=== PATIENT | male | born 1940 | race Caucasian/White ===

== ENCOUNTER 2017-06-22 11:39 | Emergency (ER) | payer MEDICARE, OTHER, SELFPAY ==
[2017-06-22 11:42] VITALS: BP 109/50; PULSE 79; RESP 16; TEMP 37; O2SAT 98; BMI 30.1
--- NOTE | 2017-06-22 12:15 | RAD_ITS ---
STUDY: X-RAY CHEST REASON FOR EXAM: Male, 76 years old. Cough. TECHNIQUE: PA and lateral views of the chest. COMPARISON: None. FINDINGS: Scattered calcified granulomas. Mild increased linear markings at the lung bases suggestive of scarring. No focal infiltrate is seen. There is no demonstrated pleural abnormality. Normal size heart. Normal mediastinum and david. Normal visualized pulmonary arteries. There is atherosclerotic calcification of the aortic arch with tortuosity. There are diffuse degenerative changes of the visualized thoracic spine. Normal visualized ribs, clavicles, and shoulders. There is no demonstrated abnormality of the visualized soft tissue structures of the upper abdomen. RAD/Chest PA and Lateral IMPRESSION: Mild increased markings at the lung bases suggestive of possible scarring. No acute abnormality is seen. Electronically Signed: You Erwin MD at 12:36 EST Tel [phone], Service support ,
--- NOTE | 2017-06-22 12:55 | ED.DCSUM_ITS ---
- ER Visit Summary Date of Service: 06/22/17 Chief Complaint: Myalgias, arthralgias subjective fever with sweats and nonproductive cough for the past 3-4 days. History of Present Illness: The patient is a 76 M who presents with viral-like symptoms that started 3-4 days ago. His major concern is myalgias and arthralgias and difficulty walking because of pain. He does complain of headache without photophobia or stiffness of his neck. He does report mild shortness of breath with activity. He denies any cardiac symptoms. He denies any GI or symptoms. He denies any skin lesions. He denies any joint swelling. He has smoked for approximately 60 years Physical Examination: Vital signs are normal. HEENT exam is remarkable for mild nasal congestion and boggy nasal mucosa; otherwise his HEENT exam is normal. Heart is regular without murmur, gallop or rub. Lungs reveal end of story rales which may represent COPD. Abdomen is soft nontender. Insert lower extremity DVT neuro exam is nonfocal. There are no skin lesions noted. Test Results: View chest x-ray reveals chronic pulmonary changes with normal cardiac silhouette, mediastinum and bony structures. Emergency Department Course and Treatment: Since he is elderly as smoked for greater than 60 years and there are abnormal respiratory sounds noted auscultation chest x-ray was obtained. Treatment Plan: Since his chest x-ray is normal and his symptoms are consistent with viral illness, influenza there is no treatment Disposition: Discharge to home Impression: Acute viral illness, influenza This note was generated with [employer] dictation software. It may contain incorrect words, spelling, and punctuation that were not noted in review of the chart prior to signing ED Disposition - Plan for ED Patient: Disposition: Home or Assisted Living Chief Complaint: General Illness Instructions: ED Viral Syndrome Referrals: Delano Garcia MD [Primary Care Provider] - 10-14 Days if not better
[2017-06-22 13:40] VITALS: BP 121/62; PULSE 72; RESP 17; TEMP 36.2; O2SAT 98
== END 2017-06-22 13:42 | disposition home or self-care (01) ==
PROVIDERS: Emergency Provider Emergency Medicine; Family Provider Family Medicine; PCP Family Medicine
DX: J11.1 Influenza due to unidentified influenza virus with other respiratory manifestations (principal); R26.2 Difficulty in walking, not elsewhere classified; F17.200 Nicotine dependence, unspecified, uncomplicated; E66.9 Obesity, unspecified; Z79.899 Other long term (current) drug therapy
CPT/HCPCS: 71046; 99282

== ENCOUNTER 2017-06-25 12:26 | Inpatient (IN) | payer MEDICARE, OTHER, SELFPAY ==
[2017-06-25] VITALS (8 sets, daily range): BP systolic 120–147; BP diastolic 55–73; PULSE 70–84; RESP 15–18; TEMP 36.7–37.3; O2SAT 92–99; BMI 29.2; BMI 28.2
--- NOTE | 2017-06-25 12:43 | RAD_ITS ---
STUDY: X-RAY CHEST REASON FOR EXAM: Male, 76 years old. Chest pain. Weakness. TECHNIQUE: Single AP portable view of the chest. COMPARISON: Comparison is made with prior examination dated June 22, 2017. FINDINGS: EKG electrodes are seen. Hyperinflation. Scattered calcified granulomas. No acute abnormality is seen. There is no demonstrated pleural abnormality. Normal size heart. Normal mediastinum and david. Normal visualized pulmonary arteries. There is atherosclerotic calcification of the aortic arch with tortuosity. There are diffuse degenerative changes of the visualized thoracic spine. Normal visualized ribs, clavicles, and shoulders. There is no demonstrated abnormality of the visualized soft tissue structures of the upper abdomen. RAD/Chest 1 View (Portable) IMPRESSION: Stable examination. No acute abnormality is seen. Electronically Signed: You Erwin MD at 13:44 EST Tel [phone], Service support ,
--- NOTE | 2017-06-25 12:43 | EKG12_ITS ---
Test Reason : WEAKNESS Blood Pressure : / mmHG Vent. Rate : 079 BPM Atrial Rate : 079 BPM P-R Int : 210 ms QRS Dur : 114 ms QT Int : 386 ms P-R-T Axes : -25 -28 030 degrees QTc Int : 442 ms Sinus rhythm with 1st degree A-V block Otherwise normal ECG Confirmed by LEROY FINNEGAN, LEVY ([id number]), subeditor KOTA WANG ([id number] on 06/29/2017 3:50:29 PM Referred By: ОЛЬГА Confirmed By:LEVY HARPER MD
--- NOTE | 2017-06-25 12:43 | ED.RN ---
pt driven to ed by grandchild. while triage pt adult grandchild became upset about pt being released a week ago with the flu. grandchild was explained our normal protocol with flu patients. grandchild was still unhappy. he was then informed that i would add his concerns about something being missed on last visit. adult grandchild then asked if he could remain calm. he said yes. charge nurse was informed of the encounter. Josie Sharpe rn
--- NOTE | 2017-06-25 12:56 | CT_ITS ---
STUDY: CT BRAIN WITHOUT CONTRAST REASON FOR EXAM: Male, 76 years old. Generalized weakness. Confusion. History of recent flu. RADIATION DOSAGE (If Supplied By Facility): CTDIvol = ( 44.99 ) mGy, DLP = ( 812.98 ) mGycm TECHNIQUE: Transaxial CT imaging of the brain was performed without administration of intravenous contrast material. Individualized dose optimization techniques were used for this CT. COMPARISON: None. FINDINGS: Normal soft tissue structures. Normal calvarium. There is mild cerebral atrophy with widening of the extra-axial spaces and ventricular dilatation. Normal white matter tracts of the cerebral hemispheres. Normal basal ganglia and thalami. Normal brainstem. Normal cerebellum. There is no intracranial hemorrhage. There are no findings of an acute ischemic infarction. Atherosclerotic calcification of the cavernous portions of the internal carotid arteries bilaterally. Partial opacification of the ethmoid sinuses bilaterally and mucosal thickening of the right maxillary sinus. CT/Brain/Head without Contrast IMPRESSION: Chronic involutional changes of the brain. Sinusitis. Electronically Signed: You Erwin MD at 13:31 EST Tel [phone], Service support ,
--- NOTE | 2017-06-25 12:58 | ED.VISSUMM ---
- ER Visit Summary Date of Service: 06/25/17 Chief Complaint: [] Generalized weakness unable to walk confusion History of Present Illness: The patient is a 76 M [] diabetes and hypertension who is generally in good health about a week ago he developed what sounds like the flu cough fever etc. he was seen in the emergency department a few days ago the workup was unremarkable, the family reports for the last few days she has has generalized weakness he cannot dress himself he can barely walk cannot get to the bathroom and back without significant assistance, the also feels if he is more confused and is not processing information with a sharp mind. The patient at this time is oriented times himself his family the [facility] knows where he is now when he has no specific complaints other than generalized weakness he also reports he apparently is been having anterior bilateral thigh pain but no trauma he has no history of musculoskeletal disorder or dermatologic disorders Physical Examination: [] Vital signs are within normal range he does appear very fatigued his sons are helping him get undressed he has a slight tremor to the left arm that is old he is awake and alert oriented as above his HEENT exam shows dry mucous membranes neck is very supple heart tones sound regular the lungs sound clear the abdomen soft nontender upper lower extremities unremarkable his thighs his lower extremities are unremarkable he has full range of motion of all 4 extremities but does complain of generalized weakness his NIH would be 0 Test Results: [] Emergency Department Course and Treatment: [] Comprehensive evaluation Treatment Plan: [] Disposition: [] Impression: [] This note was generated with [employer] dictation software. It may contain incorrect words, spelling, and punctuation that were not noted in review of the chart prior to signing ED Disposition - Plan for ED Patient: Chief Complaint: Weakness Referrals: Delano Garcia MD [Primary Care Provider] -
[2017-06-25 13:06] LABS: Absolute Lymphocyte Count 1.24 X10^3/ul (0.83-4.51); Absolute Neutrophil Count 8.2 X10^3/uL (2.0-7.7); Basophil# 0.03 X10^3/uL; Basophil% 0.3 % (0-1); Eosinophil# 0.16 X10^3/uL; Eosinophils% 1.5 % (0-5); Hematocrit 44.1 % (40-54); Hemoglobin 14.8 g/dl (13.0-16.5); Lymphocyte # 1.24 X10^3/ul (4.0); Lymphocyte % 11.6 % (19-41); Mean Corp Hgb Conc 33.6 g/gl (32-36); Mean Corpuscular Hgb 27.2 pg (27.0-32.0); Mean Corpuscular Volume 80.9 fL (80-94); Mean Platelet Vol. 10.6 fl (6.2-12.0); Monocyte# 1.11 X10^3/uL; Monocyte% 10.4 % (0-10); Neutrophil # 8.15 X10^3/uL (2.7-7.7); Neutrophil % 75.9 % (47-70); Platelet Count 299 K/mm3 (150-450); RBC Distribution Width CV 14.4 % (11.6-14.6); Red Blood Count 5.45 M/mm3 (4.6-6.2); White Blood Count 10.7 K/mm3 (4.4-11.0)
[2017-06-25 13:07] LABS: POSITIVE COUNT NO; POSITIVE DIFFERENTIAL NO; POSITIVE MORPHOLOGY NO
[2017-06-25 13:23] LABS: AST(SGOT) 13 U/L (15-37); Alanine Aminotransfer ALT/SGPT 28 U/L (16-61); Albumin, Serum 3.6 g/dL (3.2-5.0); Alkaline Phosphatase 82 U/L (45-117); Anion Gap 8 (5-15); BUN 18 mg/dL (7-18); BUN/Creat Ratio 16.7 RATIO (10-20); Bilirubin, Direct 0.19 mg/dL (0.00-0.30); Calcium,Total 8.9 mg/dL (8.5-10.1); Chloride 97 mmol/L (98-107); Creatinine, Serum 1.08 mg/dL (0.70-1.30); EST Glomerular Filtration Rate 71 mL/min (>60); Est Glom Filt Rate - Afr Amer 86 mL/min (>60); Estimated Creatinine Clearance 62.94 ml/min; Globulin 3.9 g/dL (2.2-4.2); Glucose 125 mg/dL (70-110); Lipase 100 U/L (73-393); Potassium 3.8 mmol/L (3.5-5.1); Protein, Total 7.5 g/dL (6.4-8.2); Sodium Level 133 mmol/L (136-145)
[2017-06-25 13:25] LABS: CPK Total, Creatine Kinase 131 U/L (39-308)
[2017-06-25] MEDS: 0.9% Normal Saline 1,000 ML 150 ML IV ×2 (13:45→15:58)
[2017-06-25 14:27] LABS: Bacteria 0 SEEN /hpf (None Seen); Mucous, Urine 0 SEEN /hpf (<or=2+); Red Blood Cells-Urine 0 SEEN /hpf (0-5); Squamous Epithelial Cells - UA 0 SEEN /hpf (0-5)
[2017-06-25 14:30] LABS: Color, Urine Yellow (Yellow); Glucose, Dipstick Normal (Normal); Ketone-Dipstick Negative (Negative); Leukocyte Esterase-Dipstick 25 /ul (Negative); Nitrite-Dipstick Negative (Negative); Occult Blood-Urine Negative /ul (Negative); Protein-Dipstick Negative (Negative); Specific Gravity, Urine 1.015 (1.002-1.030); Urine Bilirubin Dipstick Negative (Negative); Urine Clarity Clear (Clear); Urine Urobilinogen Normal (Normal)
[2017-06-25 14:37] LABS: White Blood Cells 0-5 SEEN /hpf (0-5)
--- NOTE | 2017-06-25 15:40 | PCM.HP.STD ---
<Diamante Shane - Last Filed: 06/25/17 17:10> Problem List (1) Type 2 diabetes mellitus Status: Chronic (2) Hypertension Status: Chronic (3) Tobacco abuse Status: Chronic History of Present Illness Date of Admission: 06/25/17 Chief Complaint: Generalized weakness, malaise, altered mental status. The patient is a 76 year old M who presents to the emergency room with a one-week history of worsening weakness, general malaise, fever/chills, cough, altered mental status. Family at bedside states patient is normally in good health and has had no prior issues with confusion or weakness. He presented to [facility] ER on 06/22/2017 for similar symptoms and was diagnosed with viral syndrome and discharged from the ER. Grandson at bedside states that respiratory panel/flu swab was not completed as the physician reportedly said there is no need for an expensive test. Family states that patient had a dental procedure within the past 2 weeks and is finishing a course of amoxicillin due to a noted infection in the gum during procedure. Patient denies history of rheumatic fever. He has a past medical history of hypertension, type 2 diabetes mellitus and current pack per day smoker. He denies other chronic medical history. Denies alcohol use. Family at bedside is very concerned and states that patient has become so weak that he is having difficulty providing basic care for himself. Patient denies chest pain. Complains of associated shortness of breath. Complains of jaw pain related to recent dental procedure. Patient was told by a dentist that he may experience jaw pain for an extended period of time. She denies drainage from the mouth, foul taste. Denies nausea, vomiting. Denies other associated complaints. Past Medical History Past Medical History (Chronic Problems): Chronic Problems Type 2 diabetes mellitus (Chronic) Hypertension (Chronic) Tobacco abuse (Chronic) Allergies No Known Allergies Allergy (Verified 06/25/17 12:30) Home Medications: Ambulatory Orders Medication Instructions Recorded Amlodipine [Norvasc] 2.5 mg PO DAILY 06/25/17 Amoxicillin [Amoxil] 500 mg PO Q6H 06/25/17 Ibuprofen [Ibuprofen] 1 tab PO Q8H PRN PRN 06/25/17 Insulin Aspart [Novolog Flexpen 6 units SC BIDCM 06/25/17 ([facility])] Insulin Glargine,Hum.rec.anlog 48 unit SQ QHS 06/25/17 [Lantus] Lisinopril/Hydrochlorothiazide 1 each PO DAILY 06/25/17 [Zestoretic 20-25 mg Tablet] Metformin HCl [Glucophage] 1,000 mg PO BIDCM 06/25/17 Surgical History: appendectomy Psychiatric History: No pertinent psych hx Lives: Spouse/ Significant Other Smoking Status: Current every day smoker - 1 pack per day Alcohol: None Drugs: None - *Family History Maternal History Items: Cancer Paternal History Items: Diabetes, Stroke Review of Systems Constitutional: Reports: Chills, Fever, Malaise, Weakness, Fatigue HEENT: Reports: Nasal Congestion. Denies: Head Aches, Sinus Congestion, Sinus Drainage Cardiovascular: Denies: Chest Pain, Palpitations, Syncope Respiratory: Reports: Cough, Shortness of Breath. Denies: Sputum production Gastrointestinal: Denies: Abdominal Pain, Diarrhea, Nausea, Vomiting Genitourinary: Denies: Dysuria, Frequency, Urgency Musculoskeletal: Denies: Joint Pain, Joint Tenderness Skin: Denies: Rash, Wounds Neurological: Denies: Numbness, Tingling, Focal weakness Psychiatric: Denies: Anxiety, Depression, Homicidal Ideations, Suicidal Ideations Hematologic/ Lymphatic: Denies: Easy Bruising, Easy Bleeding VTE Information - Inpt Only VTE Present on Admission: No VTE Mechan Device Prophylaxis: None VTE Pharm Prophylaxis ordered?: Yes - Physical Exam General: Alert, Cooperative, No apparent distress, Confused HEENT: Atraumatic, PERRLA, EOMI, Normocephalic Oral: No Gingival or Mucosal Lesions/ Ulcerations, Dry Mucosa Neck: Supple, No JVD, Negative Carotid Bruits Lungs: Clear to auscultation, Diminished Cardiovascular: Regular rate, Regular Rhythm, Normal S1, Normal S2, No murmurs Abdomen: Bowel Sounds Present, Soft, Non Tender, Non-Distended Extremities: No clubbing, No cyanosis, No edema, Capillary Refill Less than 3 Seconds Skin: No rashes, No breakdown Musculoskeletal: No Tenderness to Palpation of Joints or Extremities Neurological: Cranial nerves II-XII grossly intact, Neuro grossly intact Psych/Mental Status: Normal Affect, Appropriate Vital Signs Temp Pulse Resp BP Pulse Ox 98.9 F 79 16 144/56 H 94 06/25/17 14:29 06/25/17 14:29 06/25/17 14:29 06/25/17 14:29 06/25/17 14:29 Oxygen Delivery Method Room Air Weight: 89.3 kg Body Mass Index (BMI) 28.2 Assessment/Plan 1. Suspected viral syndrome-patient complains of general malaise with fever, chills, cough and weakness. Respiratory panel pending. Continue supportive treatment. IV fluids. Tylenol for fever. Cough suppressant as needed. 2. Generalized weakness/altered mental status-Brain CT shows chronic changes, sinusitis. Chest x-ray shows no acute abnormality. No leukocytosis. Respiratory panel pending. Patient had recent dental work done and family states symptoms began shortly after. Obtain echocardiogram to rule out endocarditis. PT/OT. Patient denies history of prosthetic valve or rheumatic fever. No previous cardiac history with the exception of hypertension. Urinalysis unremarkable. Fall precautions. 3. Type 2 diabetes [id number] before meals at bedtime. Continue long-acting insulin regimen. Sliding scale insulin. Hold metformin. 4. Hypertension-stable, continue home regimen. 5. Tobacco abuse-encourage smoking cessation. Nicotine replacement if desired. DVT prophylaxis-Lovenox subcu. This patient was seen by ELIZABETH Boudreaux under the supervision of Dr. Paredes. <Dale Paredes - Last Filed: 06/25/17 18:19> History of Present Illness seen and examined. Patient is admitted with generalized weakness, fever with chills, cough and altered mental status. He also complained of sense of micturition, increased frequency but not able to empty the bladder completely. UA shows mild LE positive otherwise no pyuria. Mild low-grade fever, T 99.2 Fahrenheit. Had recent crown of right upper premolar teeth on the amoxicillin. [] Past Medical History Allergies No Known Allergies Allergy (Verified 06/25/17 12:30) - Physical Exam General: Confused Lungs: Clear to auscultation, No rhonchi, No wheeze, Diminished Cardiovascular: Regular rate, Regular Rhythm, Normal S1, Normal S2, No murmurs Abdomen: Non Tender, Non-Distended Extremities: No edema Musculoskeletal: Arthritic Changes, Muscle Wasting Vital Signs Temp Pulse Resp BP Pulse Ox 99.2 F H 79 18 147/63 H 96 06/25/17 15:54 06/25/17 15:54 06/25/17 15:54 06/25/17 15:54 06/25/17 15:54 Oxygen Delivery Method Room Air Weight: 196 lb 13.965 oz Body Mass Index (BMI) 28.2 Intake and Output for Last 24 Hours 06/23/17 06/24/17 06/25/17 23:59 23:59 23:59 Intake Total 360 / 360 Output Total 200 / 200 Balance 160 / 160 Microbiology Past 72 Hours 06/25/17 14:36 Respiratory Panel (PCR) - Final Mucosa - Nasopharyngeal Assessment/Plan This patient was seen in conjunction with Diamante ALCANTARA. I have independently interviewed and examined the patient and reviewed pertinent history, examination findings, laboratory and plan of management. I have reviewed the note and agree with the documented findings with the few additional points. In brief, patient is admitted for generalized weakness and vital leg syndrome. Urine culture is ordered. Ammonia ordered. 2D echo ordered. Respiratory panel is negative. Blood cultures ?2 and lactic acid ordered. I have discussed my assessment with Diamante ALCANTARA and orders have been reviewed. Code Visit Inpatient E&M: 22253 Init Hosp L3
--- NOTE | 2017-06-25 15:46 | HP.PCM_ITS ---
<Diamante Shane - Last Filed: 06/25/17 17:10> Problem List (1) Type 2 diabetes mellitus Status: Chronic (2) Hypertension Status: Chronic (3) Tobacco abuse Status: Chronic History of Present Illness Date of Admission: 06/25/17 Chief Complaint: Generalized weakness, malaise, altered mental status. The patient is a 76 year old M who presents to the emergency room with a one- week history of worsening weakness, general malaise, fever/chills, cough, altered mental status. Family at bedside states patient is normally in good health and has had no prior issues with confusion or weakness. He presented to [facility] ER on 06/22/2017 for similar symptoms and was diagnosed with viral syndrome and discharged from the ER. Grandson at bedside states that respiratory panel/flu swab was not completed as the physician reportedly said there is no need for an expensive test. Family states that patient had a dental procedure within the past 2 weeks and is finishing a course of amoxicillin due to a noted infection in the gum during procedure. Patient denies history of rheumatic fever. He has a past medical history of hypertension, type 2 diabetes mellitus and current pack per day smoker. He denies other chronic medical history. Denies alcohol use. Family at bedside is very concerned and states that patient has become so weak that he is having difficulty providing basic care for himself. Patient denies chest pain. Complains of associated shortness of breath. Complains of jaw pain related to recent dental procedure. Patient was told by a dentist that he may experience jaw pain for an extended period of time. She denies drainage from the mouth, foul taste. Denies nausea, vomiting. Denies other associated complaints. Past Medical History Past Medical History (Chronic Problems): Chronic Problems Type 2 diabetes mellitus (Chronic) Hypertension (Chronic) Tobacco abuse (Chronic) Allergies No Known Allergies Allergy (Verified 06/25/17 12:30) Home Medications: Ambulatory Orders Medication Instructions Recorded Amlodipine [Norvasc] 2.5 mg PO DAILY 06/25/17 Amoxicillin [Amoxil] 500 mg PO Q6H 06/25/17 Ibuprofen [Ibuprofen] 1 tab PO Q8H PRN PRN 06/25/17 Insulin Aspart [Novolog Flexpen 6 units SC BIDCM 06/25/17 ([facility])] Insulin Glargine,Hum.rec.anlog 48 unit SQ QHS 06/25/17 [Lantus] Lisinopril/Hydrochlorothiazide 1 each PO DAILY 06/25/17 [Zestoretic 20-25 mg Tablet] Metformin HCl [Glucophage] 1,000 mg PO BIDCM 06/25/17 Surgical History: appendectomy Psychiatric History: No pertinent psych hx Lives: Spouse/ Significant Other Smoking Status: Current every day smoker - 1 pack per day Alcohol: None Drugs: None - *Family History Maternal History Items: Cancer Paternal History Items: Diabetes, Stroke Review of Systems Constitutional: Reports: Chills, Fever, Malaise, Weakness, Fatigue HEENT: Reports: Nasal Congestion. Denies: Head Aches, Sinus Congestion, Sinus Drainage Cardiovascular: Denies: Chest Pain, Palpitations, Syncope Respiratory: Reports: Cough, Shortness of Breath. Denies: Sputum production Gastrointestinal: Denies: Abdominal Pain, Diarrhea, Nausea, Vomiting Genitourinary: Denies: Dysuria, Frequency, Urgency Musculoskeletal: Denies: Joint Pain, Joint Tenderness Skin: Denies: Rash, Wounds Neurological: Denies: Numbness, Tingling, Focal weakness Psychiatric: Denies: Anxiety, Depression, Homicidal Ideations, Suicidal Ideations Hematologic/ Lymphatic: Denies: Easy Bruising, Easy Bleeding VTE Information - Inpt Only VTE Present on Admission: No VTE Mechan Device Prophylaxis: None VTE Pharm Prophylaxis ordered?: Yes - Physical Exam General: Alert, Cooperative, No apparent distress, Confused HEENT: Atraumatic, PERRLA, EOMI, Normocephalic Oral: No Gingival or Mucosal Lesions/ Ulcerations, Dry Mucosa Neck: Supple, No JVD, Negative Carotid Bruits Lungs: Clear to auscultation, Diminished Cardiovascular: Regular rate, Regular Rhythm, Normal S1, Normal S2, No murmurs Abdomen: Bowel Sounds Present, Soft, Non Tender, Non-Distended Extremities: No clubbing, No cyanosis, No edema, Capillary Refill Less than 3 Seconds Skin: No rashes, No breakdown Musculoskeletal: No Tenderness to Palpation of Joints or Extremities Neurological: Cranial nerves II-XII grossly intact, Neuro grossly intact Psych/Mental Status: Normal Affect, Appropriate Vital Signs Temp Pulse Resp BP Pulse Ox 98.9 F 79 16 144/56 H 94 06/25/17 14:29 06/25/17 14:29 06/25/17 14:29 06/25/17 14:29 06/25/17 14:29 Oxygen Delivery Method Room Air Weight: 89.3 kg Body Mass Index (BMI) 28.2 Assessment/Plan 1. Suspected viral syndrome-patient complains of general malaise with fever, chills, cough and weakness. Respiratory panel pending. Continue supportive treatment. IV fluids. Tylenol for fever. Cough suppressant as needed. 2. Generalized weakness/altered mental status-Brain CT shows chronic changes, sinusitis. Chest x-ray shows no acute abnormality. No leukocytosis. Respiratory panel pending. Patient had recent dental work done and family states symptoms began shortly after. Obtain echocardiogram to rule out endocarditis. PT/OT. Patient denies history of prosthetic valve or rheumatic fever. No previous cardiac history with the exception of hypertension. Urinalysis unremarkable. Fall precautions. 3. Type 2 diabetes [id number]-[id number]-[id number] before meals at bedtime. Continue long- acting insulin regimen. Sliding scale insulin. Hold metformin. 4. Hypertension-stable, continue home regimen. 5. Tobacco abuse-encourage smoking cessation. Nicotine replacement if desired. DVT prophylaxis-Lovenox subcu. This patient was seen by ELIZABETH Boudreaux under the supervision of Dr. Paredes. <Dale Paredes - Last Filed: 06/25/17 18:19> History of Present Illness seen and examined. Patient is admitted with generalized weakness, fever with chills, cough and altered mental status. He also complained of sense of micturition, increased frequency but not able to empty the bladder completely. UA shows mild LE positive otherwise no pyuria. Mild low-grade fever, T 99.2 Fahrenheit. Had recent crown of right upper premolar teeth on the amoxicillin. [] Past Medical History Allergies No Known Allergies Allergy (Verified 06/25/17 12:30) - Physical Exam General: Confused Lungs: Clear to auscultation, No rhonchi, No wheeze, Diminished Cardiovascular: Regular rate, Regular Rhythm, Normal S1, Normal S2, No murmurs Abdomen: Non Tender, Non-Distended Extremities: No edema Musculoskeletal: Arthritic Changes, Muscle Wasting Vital Signs Temp Pulse Resp BP Pulse Ox 99.2 F H 79 18 147/63 H 96 06/25/17 15:54 06/25/17 15:54 06/25/17 15:54 06/25/17 15:54 06/25/17 15:54 Oxygen Delivery Method Room Air Weight: 196 lb 13.965 oz Body Mass Index (BMI) 28.2 Intake and Output for Last 24 Hours 06/23/17 06/24/17 06/25/17 23:59 23:59 23:59 Intake Total 360 / 360 Output Total 200 / 200 Balance 160 / 160 Microbiology Past 72 Hours 06/25/17 14:36 Respiratory Panel (PCR) - Final Mucosa - Nasopharyngeal Assessment/Plan This patient was seen in conjunction with Diamante ALCANTARA. I have independently interviewed and examined the patient and reviewed pertinent history, examination findings, laboratory and plan of management. I have reviewed the note and agree with the documented findings with the few additional points. In brief, patient is admitted for generalized weakness and vital leg syndrome. Urine culture is ordered. Ammonia ordered. 2D echo ordered. Respiratory panel is negative. Blood cultures ?2 and lactic acid ordered. I have discussed my assessment with Diamante ALCANTARA and orders have been reviewed. Code Visit Inpatient E&M: 91120 Init Hosp L3
--- NOTE | 2017-06-25 16:38 | ECHOD_ITS ---
Reason For Study: DYSPNEA Procedure This was a 2D Doppler, Color Flow transthoracic echocardiogram. Exam performed portable in patient room. Left Ventricle Normal LV size. Left ventricular systolic function is normal. The estimated ejection fraction is 60 %. No regional wall motion abnormalities noted. Right Ventricle Normal RV size. Normal systolic function. Atria Normal left atrium. Normal right atrium. Mitral Valve Normal mitral valve. Tricuspid Valve Normal tricuspid valve. Mild tricuspid valve insufficiency. Aortic Valve Normal aortic valve. Trisinus/trileaflet aortic valve. Pulmonic Valve Normal pulmonic valve. Great Vessels Normal aortic root. The pulmonary artery is normal size. Normal inferior vena cava. Pericardium/Pleural No pericardial effusion. MMode/2D Measurements & Calculations LVIDd: 4.2 cm IVSd: 0.94 cm LVOT diam: 2.0 cm RVDd: 3.9 cm LVPWd: 1.1 cm LVOT area: 3.2 cm2 Ao root diam: 3.4 cm LAV(MOD-bp): 47.4 ml LA A4 area: 18.5 cm2 LA dimension: 4.2 cm LAV(MOD-bp) Indexed: 22.9 ml/m2 LAV(MOD-sp2): 43.7 ml LAV(MOD-sp4): 52.3 ml RA A4 area: 13.7 cm2 Doppler Measurements & Calculations MV E max linda: 71.8 cm/sec Ao V2 max: 155.2 cm/sec LV V1 max: 111.3 cm/sec MV A max linda: 89.9 cm/sec Ao max P.6 mmHg LV V1 max P.0 mmHg MV E/A: 0.80 AVE(V,D): 2.3 cm2 TR max linda: 206.3 cm/sec TR max P.0 mmHg Interpretation Summary Normal LV size. Left ventricular systolic function is normal. The estimated ejection fraction is 60 %. Mild tricuspid valve insufficiency. Ordering Physician: ELIZABETH Boudreaux Referring Physician: SRI EPPERSON Performed By: Ivanna Zaragoza, TEETEE, RVT
[2017-06-25] MEDS: AMOXICILLIN 500 MG CAPSULE PO (17:44)
[2017-06-25] MEDS: Glucerna Shake 120 ML LIQUID PO (17:45)
--- NOTE | 2017-06-25 18:52 | MRI_ITS ---
STUDY: MRI BRAIN WITHOUT CONTRAST REASON FOR EXAM: Male, 76 years old. Sudden onset of confusion. TECHNIQUE: Standardized multiplanar fat and water weighted pulse sequences were obtained. COMPARISON: None. FINDINGS: There is mild cerebral atrophy with widening of the extra-axial spaces and ventricular dilatation. There are a limited number of small white matter hyperintensities, distributed throughout the deep white matter tracts of the cerebral hemispheres, consistent with mild chronic white matter ischemic changes. There is no evidence for recent intracranial ischemia or other cause of cytotoxic edema on diffusion weighted imaging (DWI). Normal bilateral basal ganglia. Normal thalami. There is no extra-axial fluid accumulation. Normal flow voids within the major intracranial circulation suggesting patency by spin echo criteria. Normal sella turcica, pituitary gland, infundibular stalk, optic chiasm and hypothalamus. Normal tectal plate and pineal gland. Normal midbrain, primitivo and medulla. Normal cerebellum. Normal basal cisterns. Normal bilateral temporal bones. Normal bilateral internal auditory canals. No demonstrated orbital abnormality, within the constraints of a routine brain study. Fluid layering in mucosal thickening of the maxillary, sphenoid and ethmoid sinuses are present. Mild mucosal thickening in the sphenoid sinuses is also noted. Within the left nasopharynx is a likely mucoid retention cyst within the torus tubarius. Normal visualized soft tissue structures. Normal visualized upper cervical spine. MRI/Brain without Contrast IMPRESSION: 1. Senescent changes with no evidence of acute intracranial bleed, mass or ischemia. 2. 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 Electronically Signed: Joe Mcnair DO at 21:17 EST , Service support ,
[2017-06-25 19:45] LABS: Erythrocyte Sedimentation Rate 15 mm/hr (0-20)
--- NOTE | 2017-06-25 20:05 | RAD_ITS ---
STUDY: X-RAY - LUMBAR SPINE REASON FOR EXAM: Male, 76 years old. Low back pain TECHNIQUE: 2 view(s) of the lumbar spine were obtained. COMPARISON: None FINDINGS: Normal lumbar lordosis. There is no substantial scoliosis. There is a normal alignment of the vertebrae. There is multilevel endplate spondylosis of the lumbar vertebrae. There is multi-level degenerative disc disease with multi-level disc space narrowing. The soft tissue structures are unremarkable. RAD/Lumbar Spine 2 or 3 Views IMPRESSION: Degenerative changes of the spine, as detailed above. No fracture. Electronically Signed: Praveen Cruz DO at 21:09 EST , Service support ,
[2017-06-25 20:12] LABS: CRP < 2.90 mg/L (0.0-3.0); Thyroid Stim Hormone (TSH) 0.88 uIU/mL (0.358-3.74)
--- NOTE | 2017-06-25 20:25 | NURSING ---
PT RETURNED TO ROOM AT THIS TIME AFTER FINISHING MRI. AWAKE, ALERT TO NAME & BDAY & KNOWS HE IS AT [facility], THE YEAR IS 2018. DENIES C/O BEARDEN BUT DOES REPORT HIS NECK FEELS STIFF POSTERIORLY.
[2017-06-25] MEDS: 0.9% Normal Saline 1,000 ML 75 ML IV (20:34)
[2017-06-25] MEDS: Phytonadione (Vit K) 10 MG/ML Ampul SC (20:42)
[2017-06-25 21:28] LABS: Lactic Acid 0.9 mmol/L (0.4-2.0)
[2017-06-25 23:06] LABS: Bedside Glucose 201 mg/dL (70-110)
[2017-06-26] VITALS (7 sets, daily range): BP systolic 125–179; BP diastolic 54–75; PULSE 69–83; RESP 15–18; TEMP 36.4–36.7; O2SAT 96–98
--- NOTE | 2017-06-26 | FLU_PTH ---
PATIENT: LANNY OLIVIER LOC: MS3 U#:[id number] AGE/SX: 76/M ROOM: [facility] RE06/25/[address]: Bran Acevedo MD : [id number] BED: 1 DIS: 06/29/2017 SPEC #: [id number] RECD: 06/26/17 11:39 STATUS: BERTRAM MICHI #: [id number] STEPHAN: 06/26/17 00:[address]: Neva Beltran DEPT: CYTOLOGY RECD BY: Brii Mckay ENTERED: 06/26/17 14:19 SP TYPE: Fluid OTHR DR: MD Dr. Dale Evans MD Dr. Ramnath S Ramanathan, MD Tissues: Cerebrospinal Fluid Procedures: Pap Stain (control) Special Stain Group II Cytospin Fluid HEADER OPERATION: Not noted PRE-OP DIAGNOSIS: Flu-like symptoms TISSUE SUBMITTED: Cerebrospinal fluid for cytology DIAGNOSIS CYTOLOGY Cerebrospinal fluid for cytology (cytospin): Increased number of inflammatory cells noted. See cytology study and comment. SJ:rg 06/29/17 COMMENT Clinical correlation and appropriate follow up are necessary. CYTOLOGY STUDY Slides are reviewed. The specimen shows increased number of inflammatory cells consisting predominantly of lymphocytes and a few monocytes. CYTOLOGY GROSS Received is 2 ml of clear, colorless fluid labeled with the patient's name and and designated per the requisition as CSF. Submitted for cytology preparation. 06/26/17 TC:2 CPT: 84199
[2017-06-26 03:56] LABS: Rapid Plasmin Reagin (RPR) NONREACTIVE (NONREACTIVE)
--- NOTE | 2017-06-26 05:55 | RAD_ITS ---
PROCEDURE: Fluoroscopic guided Lumbar Puncture. DATE: June 26, 2017. CLINICAL INDICATION: Possible meningitis PHYSICIAN: You Erwin M.D. MEDICATIONS: 1% lidocaine administered subcutaneously for local anesthesia. ACCESS SITE: Lower posterior back. NEEDLE: 22-gauge spinal needle. SPECIMEN: Approximately 12 mL clear]CSF fluid. FLUOROSCOPY TIME (if supplied): (1:19) minutes/seconds COMPLICATIONS: None immediate. The risks, benefits, and alternatives to the procedure were explained to the patient. The specific risks of bleeding, infection, and neurovascular injury were detailed and accepted. Witnessed informed consent was obtained. The patient was placed on the fluoroscopic table in the prone position. The level for needle entry was determined and marked. The overlying skin was cleaned and prepped in the usual sterile fashion. 2% lidocaine was administered subcutaneously for local anesthesia. Under fluoroscopic guidance a 22-gauge spinal needle was advanced. The thecal sac was entered at the L3- L4 vertebral level. The inner stylet was removed. There was spontaneous flow of clear CSF fluid. The patient was placed in a reversed Trendelenburg position. Approximately 12 mL of cerebrospinal fluid was collected using gravity. The specimen was collected and submitted to the laboratory for further evaluation. The needle was withdrawn,. Hemostasis was achieved and a sterile dressing placed. The patient tolerated the procedure well without any immediate complications. The patient was placed supine with head elevated and returned to the floor in stable condition. RAD/Fluoro Guided Lumbar Puncture IMPRESSION: Successful fluoroscopic-guided lumbar puncture. Electronically Signed: You Erwin MD at 13:03 EST Tel [phone], Service support ,
--- NOTE | 2017-06-26 06:30 | PCM.PROGNOTE ---
Patient Problems: Active and Suspected Problems Mental status change (Acute) Confusion (Acute) Subjective: Day #2 Vanco, ampicillin, Rocephin Patient is a 76-year-old male with a past medical history of diabetes mellitus type 2, hypertension and dependence who was admitted to the hospital on 06/25/2017 with complaints of altered mental status and generalized weakness which had been increasing over the past week. Significant history included a dental procedure where he has his gums incised and was placed on amoxicillin postprocedure secondary to infection. He was afebrile at admission. He had no focal neurologic deficits. On physical exam I did appreciate that he had some nuchal rigidity. MRI of the brain showed cerebral atrophy and ventricular dilatation in line with the patient's age. There was no evidence of acute intracranial bleed, mass or ischemia. He does have paranasal sinus disease in the maxillary, ethmoid and sphenoid sinuses with a left nasopharyngeal mucoid retention cyst. Lumbar spine x-ray showed no lytic lesions, there is multilevel degenerative disc disease and endplate spondylosis. T-max was 99.2. Vital signs are stable. He is not tachycardic. He is 96% saturated on room air with a normal respiratory rate. All lab was personally reviewed. White blood cell count is 7.1 today with 87% neutrophils but he did receive 10 mg of Decadron last night. RPR was nonreactive. TSH is normal at 0.88 and the B12 is pending. CRP is less than 2.90. ESR was 15. Respiratory panel was negative. Mental status has improved significantly overnight but still not at his baseline. Does not know why he is in the hospital and wants to go home. He is still very weak and needed 2 people to get him from the chair to the bed. Lumbar puncture today showed 163 white blood cells with a 97% lymphocyte predominance. There were 0 RBC's. The protein was 102 and the glucose was 91. He has been on amoxicillin for the past week and was started on VAnc and Ampicillin and Rocephin last night - Physical Exam General: Alert, No apparent distress, - - Oriented X 2 for me. Wanting to go home HEENT: Atraumatic, PERRLA, EOMI, Normocephalic Oral: Dry Mucosa Neck: - - the neck is less stiff today. Lungs: Clear to auscultation, Diminished Cardiovascular: Regular rate, Regular Rhythm, Normal S1, Normal S2, No murmurs, No Gallop Abdomen: Bowel Sounds Present, Soft, Non Tender, Non-Distended Extremities: No cyanosis, No edema Skin: No rashes Neurological: Cranial nerves II-XII grossly intact, Neuro grossly intact Vital Signs Temp Pulse Resp BP Pulse Ox 98.0 F 75 15 125/66 H 96 06/26/17 04:00 06/26/17 04:00 06/26/17 04:00 06/26/17 04:00 06/26/17 00:00 Oxygen Delivery Method Room Air Weight: 196 lb 13.965 oz Body Mass Index (BMI) 28.2 Intake and Output for Last 24 Hours 06/24/17 06/25/17 06/26/17 23:59 23:59 23:59 Intake Total 360 / 360 1035 / 1035 Output Total 200 / 200 513 / 513 Balance 160 / 160 522 / 522 Microbiology Past 72 Hours 06/25/17 14:36 Respiratory Panel (PCR) - Final Mucosa - Nasopharyngeal Laboratory Tests Past 24 Hrs 06/25/17 06/25/17 06/25/17 19:10 19:10 19:10 WBC RBC Hgb Hct MCV MCH MCHC RDW RDW Differential Plt Count Neut % (Auto) Absolute Neuts (auto) Total Counted ESR Sodium Potassium Chloride Carbon Dioxide Anion Gap BUN Creatinine Est GFR (MDRD) Af Amer Est GFR (MDRD) Non-Af BUN/Creatinine Ratio Glucose Lactic Acid Calcium Ammonia 29.0 Vitamin B12 Pending RPR NONREACTIVE 06/25/17 06/25/17 06/26/17 19:10 20:49 05:20 WBC Pending RBC Pending Hgb Pending Hct Pending MCV Pending MCH Pending MCHC Pending RDW Pending RDW Differential Pending Plt Count Pending Neut % (Auto) Pending Absolute Neuts (auto) Pending Total Counted Pending ESR 15 Sodium Potassium Chloride Carbon Dioxide Anion Gap BUN Creatinine Est GFR (MDRD) Af Amer Est GFR (MDRD) Non-Af BUN/Creatinine Ratio Glucose Lactic Acid 0.9 Calcium Ammonia Vitamin B12 RPR 06/26/17 05:20 WBC RBC Hgb Hct MCV MCH MCHC RDW RDW Differential Plt Count Neut % (Auto) Absolute Neuts (auto) Total Counted ESR Sodium Pending Potassium Pending Chloride Pending Carbon Dioxide Pending Anion Gap Pending BUN Pending Creatinine Pending Est GFR (MDRD) Af Amer Pending Est GFR (MDRD) Non-Af Pending BUN/Creatinine Ratio Pending Glucose Pending Lactic Acid Calcium Pending Ammonia Vitamin B12 RPR POC Glucose 06/25/17 22:49 POC Glucose 201 H Assessment/Plan Active and Suspected Problems Mental status change (Acute) Confusion (Acute) Impressions 1. viral meningitis with acute encephalopathy 2. acute encephalopathy 3. Generalized weakness -unable to ambulate without assistance 4. Recent dental procedure requiring incision into the gum-this became infected and he has been on amoxicillin for 1 week which may be clouding the results of the lumbar puncture 5. Type 2 diabetes mellitus 6. Nicotine dependence 7. Dehydration at admission with hyponatremia-resolved 8. obesity Consult Dr. Valentino Can probably DC the antibiotics but I am concerned that with the Amoxicillin that this may be affecting the results of the LP and the cultures so will wait for his consult Keep the decadron? I do not know why he would be so much better today unless, the decadron has helped with inflammation Continue current care May need an SNF at [place] for PT for strengthening. Consult with PT and OT ordered Updated the family twice Starting to get agitated so will add Seroquel and PRN Haldol Code Visit Inpatient E&M: 61122 Subs Hosp L3
[2017-06-26 06:32] LABS: Absolute Lymphocyte Count 0.68 X10^3/ul (0.83-4.51); Absolute Neutrophil Count 6.1 X10^3/uL (2.0-7.7); Basophil# 0.01 X10^3/uL; Basophil% 0.1 % (0-1); Hemoglobin 14.9 g/dl (13.0-16.5); Lymphocyte # 0.68 X10^3/ul (4.0); Lymphocyte % 9.6 % (19-41); Mean Corp Hgb Conc 34.7 g/gl (32-36); Mean Corpuscular Hgb 27.5 pg (27.0-32.0); Mean Corpuscular Volume 79.5 fL (80-94); Mean Platelet Vol. 11.3 fl (6.2-12.0); Monocyte# 0.22 X10^3/uL; Monocyte% 3.1 % (0-10); Neutrophil # 6.13 X10^3/uL (2.7-7.7); Neutrophil % 87.1 % (47-70); Platelet Count 302 K/mm3 (150-450); RBC Distribution Width CV 14.2 % (11.6-14.6); RBC Distribution Width SD 40.8 fl (35.1-43.9); Red Blood Count 5.41 M/mm3 (4.6-6.2); White Blood Count 7.1 K/mm3 (4.4-11.0)
[2017-06-26 06:37] LABS: POSITIVE COUNT NO; POSITIVE DIFFERENTIAL NO; POSITIVE MORPHOLOGY NO
[2017-06-26 06:47] LABS: Anion Gap 10 (5-15); BUN 14 mg/dL (7-18); BUN/Creat Ratio 14.8 RATIO (10-20); Calcium,Total 8.7 mg/dL (8.5-10.1); Chloride 102 mmol/L (98-107); Creatinine, Serum 0.95 mg/dL (0.70-1.30); EST Glomerular Filtration Rate 82 mL/min (>60); Est Glom Filt Rate - Afr Amer 99 mL/min (>60); Estimated Creatinine Clearance 69.37 ml/min; Glucose 168 mg/dL (70-110); Potassium 3.7 mmol/L (3.5-5.1); Sodium Level 135 mmol/L (136-145)
[2017-06-26 06:56] LABS: Bedside Glucose 164 mg/dL (70-110)
[2017-06-26 08:40] LABS: Vitamin B12 415 pg/mL (211-911)
[2017-06-26] MEDS: Glucerna Shake 120 ML LIQUID PO ×2 (08:57→13:54)
--- NOTE | 2017-06-26 09:57 | PCM.PROGNOTE ---
Subjective: Patient seen and examined. Resting in bed no acute distress. Remains confused this morning. States he is at the [facility]. States he must have slept well last night, does not recall any events overnight. Is able to state correct month and president. Denies other complaints. - Physical Exam General: Alert, Cooperative, Confused HEENT: Atraumatic, PERRLA, EOMI, Normocephalic Oral: Dry Mucosa Neck: Supple, No JVD, Negative Carotid Bruits Lungs: Clear to auscultation, Diminished Cardiovascular: Regular rate, Regular Rhythm, Normal S1, Normal S2, No murmurs Abdomen: Bowel Sounds Present, Soft, Non Tender, Non-Distended Extremities: No clubbing, No cyanosis, No edema, Capillary Refill Less than 3 Seconds Skin: No rashes, No breakdown Musculoskeletal: No Tenderness to Palpation of Joints or Extremities Neurological: Cranial nerves II-XII grossly intact, Neuro grossly intact Psych/Mental Status: Normal Affect, Appropriate Vital Signs Temp Pulse Resp BP Pulse Ox 98.0 F 79 15 125/66 H 96 06/26/17 04:00 06/26/17 08:32 06/26/17 04:00 06/26/17 04:00 06/26/17 00:00 Oxygen Delivery Method Room Air Weight: 89.3 kg Body Mass Index (BMI) 28.2 Intake and Output for Last 24 Hours 06/24/17 06/25/17 06/26/17 23:59 23:59 23:59 Intake Total 360 / 360 1675 / 1675 Output Total 200 / 200 1213 / 1213 Balance 160 / 160 462 / 462 Microbiology Past 72 Hours 06/25/17 14:36 Respiratory Panel (PCR) - Final Mucosa - Nasopharyngeal Laboratory Tests Past 24 Hrs 06/25/17 06/25/17 06/25/17 19:10 19:10 19:10 WBC RBC Hgb Hct MCV MCH MCHC RDW RDW Differential Plt Count MPV Immature Gran % (Auto) Neut % (Auto) Lymph % (Auto) [place] % (Auto) Eos % (Auto) Baso % (Auto) Absolute Neuts (auto) Absolute Lymphs (auto) Total Counted ESR Sodium Potassium Chloride Carbon Dioxide Anion Gap BUN Creatinine Estim Creat Clear Calc Est GFR (MDRD) Af Amer Est GFR (MDRD) Non-Af BUN/Creatinine Ratio Glucose Lactic Acid Calcium Ammonia 29.0 Vitamin B12 415 RPR NONREACTIVE 06/25/17 06/25/17 06/26/17 19:10 20:49 05:20 WBC 7.1 RBC 5.41 Hgb 14.9 Hct 43.0 MCV 79.5 L MCH 27.5 MCHC 34.7 RDW 14.2 RDW Differential 40.8 Plt Count 302 MPV 11.3 Immature Gran % (Auto) 0.100 Neut % (Auto) 87.1 H Lymph % (Auto) 9.6 L [place] % (Auto) 3.1 Eos % (Auto) 0.0 Baso % (Auto) 0.1 Absolute Neuts (auto) 6.1 Absolute Lymphs (auto) 0.68 L Total Counted Not Reportable ESR 15 Sodium Potassium Chloride Carbon Dioxide Anion Gap BUN Creatinine Estim Creat Clear Calc Est GFR (MDRD) Af Amer Est GFR (MDRD) Non-Af BUN/Creatinine Ratio Glucose Lactic Acid 0.9 Calcium Ammonia Vitamin B12 RPR 06/26/17 05:20 WBC RBC Hgb Hct MCV MCH MCHC RDW RDW Differential Plt Count MPV Immature Gran % (Auto) Neut % (Auto) Lymph % (Auto) [place] % (Auto) Eos % (Auto) Baso % (Auto) Absolute Neuts (auto) Absolute Lymphs (auto) Total Counted ESR Sodium 135 L Potassium 3.7 Chloride 102 Carbon Dioxide 23.0 Anion Gap 10 BUN 14 Creatinine 0.95 Estim Creat Clear Calc 69.37 Est GFR (MDRD) Af Amer 99 Est GFR (MDRD) Non-Af 82 BUN/Creatinine Ratio 14.8 Glucose 168 H Lactic Acid Calcium 8.7 Ammonia Vitamin B12 RPR POC Glucose 06/26/17 06/25/17 06:50 22:49 POC Glucose 164 H 201 H Assessment/Plan Patient is a 76-year-old male admitted 06/25/17 due to generalized weakness, altered mental status. He has a past medical history of type 2 diabetes mellitus, hypertension, tobacco use. 1. Generalized weakness/altered mental status-Brain CT shows chronic changes, sinusitis. Chest x-ray shows no acute abnormality. No leukocytosis. Respiratory panel negative. Patient had recent dental work done and family states symptoms began shortly after. Echocardiogram pending. MRI of brain shows no evidence of acute intracranial bleed, mass or ischemia. Lumbar spine x-ray shows degenerative changes of the spine. No fracture. Urinalysis unremarkable. Patient to undergo lumbar puncture today. Neurology consulted. Patient has no focal neurologic deficits. Continue IV ampicillin and vancomycin. Continue IV Decadron. Blood cultures pending. 2. Type 2 diabetes [id number] before meals at bedtime. Continue long-acting insulin regimen. Sliding scale insulin. Hold metformin. 3. Hypertension-stable, continue home regimen. 4. Tobacco abuse-encourage smoking cessation. Nicotine replacement if desired. DVT prophylaxis-Lovenox subcu. This patient was seen by ELIZABETH Boudreaux under the supervision of Dr. Beltran.
--- NOTE | 2017-06-26 10:02 | PN_ITS ---
Subjective: Patient seen and examined. Resting in bed no acute distress. Remains confused this morning. States he is at the [facility]. States he must have slept well last night, does not recall any events overnight. Is able to state correct month and president. Denies other complaints. - Physical Exam General: Alert, Cooperative, Confused HEENT: Atraumatic, PERRLA, EOMI, Normocephalic Oral: Dry Mucosa Neck: Supple, No JVD, Negative Carotid Bruits Lungs: Clear to auscultation, Diminished Cardiovascular: Regular rate, Regular Rhythm, Normal S1, Normal S2, No murmurs Abdomen: Bowel Sounds Present, Soft, Non Tender, Non-Distended Extremities: No clubbing, No cyanosis, No edema, Capillary Refill Less than 3 Seconds Skin: No rashes, No breakdown Musculoskeletal: No Tenderness to Palpation of Joints or Extremities Neurological: Cranial nerves II-XII grossly intact, Neuro grossly intact Psych/Mental Status: Normal Affect, Appropriate Vital Signs Temp Pulse Resp BP Pulse Ox 98.0 F 79 15 125/66 H 96 06/26/17 04:00 06/26/17 08:32 06/26/17 04:00 06/26/17 04:00 06/26/17 00:00 Oxygen Delivery Method Room Air Weight: 89.3 kg Body Mass Index (BMI) 28.2 Intake and Output for Last 24 Hours 06/24/17 06/25/17 06/26/17 23:59 23:59 23:59 Intake Total 360 / 360 1675 / 1675 Output Total 200 / 200 1213 / 1213 Balance 160 / 160 462 / 462 Microbiology Past 72 Hours 06/25/17 14:36 Respiratory Panel (PCR) - Final Mucosa - Nasopharyngeal Laboratory Tests Past 24 Hrs 06/25/17 06/25/17 06/25/17 19:10 19:10 19:10 WBC RBC Hgb Hct MCV MCH MCHC RDW RDW Differential Plt Count MPV Immature Gran % (Auto) Neut % (Auto) Lymph % (Auto) [place] % (Auto) Eos % (Auto) Baso % (Auto) Absolute Neuts (auto) Absolute Lymphs (auto) Total Counted ESR Sodium Potassium Chloride Carbon Dioxide Anion Gap BUN Creatinine Estim Creat Clear Calc Est GFR (MDRD) Af Amer Est GFR (MDRD) Non-Af BUN/Creatinine Ratio Glucose Lactic Acid Calcium Ammonia 29.0 Vitamin B12 415 RPR NONREACTIVE 06/25/17 06/25/17 06/26/17 19:10 20:49 05:20 WBC 7.1 RBC 5.41 Hgb 14.9 Hct 43.0 MCV 79.5 L MCH 27.5 MCHC 34.7 RDW 14.2 RDW Differential 40.8 Plt Count 302 MPV 11.3 Immature Gran % (Auto) 0.100 Neut % (Auto) 87.1 H Lymph % (Auto) 9.6 L [place] % (Auto) 3.1 Eos % (Auto) 0.0 Baso % (Auto) 0.1 Absolute Neuts (auto) 6.1 Absolute Lymphs (auto) 0.68 L Total Counted Not Reportable ESR 15 Sodium Potassium Chloride Carbon Dioxide Anion Gap BUN Creatinine Estim Creat Clear Calc Est GFR (MDRD) Af Amer Est GFR (MDRD) Non-Af BUN/Creatinine Ratio Glucose Lactic Acid 0.9 Calcium Ammonia Vitamin B12 RPR 06/26/17 05:20 WBC RBC Hgb Hct MCV MCH MCHC RDW RDW Differential Plt Count MPV Immature Gran % (Auto) Neut % (Auto) Lymph % (Auto) [place] % (Auto) Eos % (Auto) Baso % (Auto) Absolute Neuts (auto) Absolute Lymphs (auto) Total Counted ESR Sodium 135 L Potassium 3.7 Chloride 102 Carbon Dioxide 23.0 Anion Gap 10 BUN 14 Creatinine 0.95 Estim Creat Clear Calc 69.37 Est GFR (MDRD) Af Amer 99 Est GFR (MDRD) Non-Af 82 BUN/Creatinine Ratio 14.8 Glucose 168 H Lactic Acid Calcium 8.7 Ammonia Vitamin B12 RPR POC Glucose 06/26/17 06/25/17 06:50 22:49 POC Glucose 164 H 201 H Assessment/Plan Patient is a 76-year-old male admitted 06/25/17 due to generalized weakness, altered mental status. He has a past medical history of type 2 diabetes mellitus, hypertension, tobacco use. 1. Generalized weakness/altered mental status-Brain CT shows chronic changes, sinusitis. Chest x-ray shows no acute abnormality. No leukocytosis. Respiratory panel negative. Patient had recent dental work done and family states symptoms began shortly after. Echocardiogram pending. MRI of brain shows no evidence of acute intracranial bleed, mass or ischemia. Lumbar spine x -ray shows degenerative changes of the spine. No fracture. Urinalysis unremarkable. Patient to undergo lumbar puncture today. Neurology consulted. Patient has no focal neurologic deficits. Continue IV ampicillin and vancomycin. Continue IV Decadron. Blood cultures pending. 2. Type 2 diabetes [id number]-[id number]-[id number] before meals at bedtime. Continue long- acting insulin regimen. Sliding scale insulin. Hold metformin. 3. Hypertension-stable, continue home regimen. 4. Tobacco abuse-encourage smoking cessation. Nicotine replacement if desired. DVT prophylaxis-Lovenox subcu. This patient was seen by ELIZABETH Boudreaux under the supervision of Dr. Beltran.
[2017-06-26] MEDS: amLODIPine 2.5 MG Tablet PO (11:03)
[2017-06-26] MEDS: hydroCHLOROthiazide 25 MG Tablet PO (11:03)
[2017-06-26] MEDS: Enoxaparin 40 MG/0.4 ML Syringe SC (11:03)
[2017-06-26] MEDS: Lisinopril 20 MG Tablet PO (11:03)
[2017-06-26 12:00] LABS: Cytology, Body Fluid / CSF SEE PATHOLOGY REPORT
[2017-06-26 12:17] LABS: Body Fluid Mononuclear WBC # 0.155 10^3/uL; Body Fluid Mononuclear WBC % 95.7 %; Body Fluid Polynuclear WBC # 0.007 10^3/uL; Body Fluid Polynuclear WBC % 4.3 %; Total Cell Count CSF 0.163 10^3/uL (0.000-0.000); White Count, CSF 0.162 10^3/uL (0.000-0.000)
[2017-06-26 12:49] LABS: Glucose Spinal Fluid 91 mg/dL (40-75)
[2017-06-26 13:12] LABS: Lymphocytes,CSF 96 % (40 - 80); Neutrophils,CSF 4 % (0 - 6)
[2017-06-26 13:13] LABS: Appearance CSF (character) CLEAR (Clear); Auto B Fluid Analyzer BKGD Ct COUNTS W/IN LIMITS (W/IN LIMITS); Body Fluid QC Type(s) BF4Q; CSF Color COLORLESS (Colorless); RBC Count, Spinal Fluid 0 /mm-3 (None seen); Tested Tube # 4
--- NOTE | 2017-06-26 14:21 | NURSING ---
Kamaljit from infectious disease notified per Dr. Beltran pt has viral meningitis.
--- NOTE | 2017-06-26 14:22 | PCM.CONS.GEN ---
Problem List (1) Mental status change Status: Acute (2) Confusion Status: Acute Reason for Consult Date of Consultation: 06/26/17 Reason for Consultation: AMS, confusion History of Present Illness: The patient is a 76 year old CM with PMH HTN, DM admitted with confusion. Per patient he is not sure why he is admitted to the hospital. History is obtained from medical records and patient. 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 Per documentation he was recently seen for flu like symptoms, had some dental work, and now he was admitted with confusion. CT head and MRI brain following admission did not show any acute vascular changes. Patient was felt to be having NR on admission and hence was started on meningitic dose of antibiotics empirically and had LP this morning reported to show WBCs 163, lymphocytic predominance, protein 102 and glucose 91. At present patient is almost near his baseline, denies any BEARDEN, visual disturbances, focal motor weakness or sensory loss. Per patient he lives with his , does not use cane or walker to ambulate, denies any falls, does drive and does not need any assistance for his ADLs. 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 ] Past Medical History Past Medical History (Chronic Problems): Chronic Problems Type 2 diabetes mellitus (Chronic) Hypertension (Chronic) Tobacco abuse (Chronic) Allergies No Known Allergies Allergy (Verified 06/25/17 12:30) Home Medications: Ambulatory Orders Medication Instructions Recorded Amlodipine [Norvasc] 2.5 mg PO DAILY 06/25/17 Amoxicillin [Amoxil] 500 mg PO Q6H 06/25/17 Ibuprofen [Ibuprofen] 1 tab PO Q8H PRN PRN 06/25/17 Insulin Aspart [Novolog Flexpen 6 units SC BIDCM 06/25/17 ([facility])] Insulin Glargine,Hum.rec.anlog 48 unit SQ QHS 06/25/17 [Lantus] Lisinopril/Hydrochlorothiazide 1 each PO DAILY 06/25/17 [Zestoretic 20-25 mg Tablet] Metformin HCl [Glucophage] 1,000 mg PO BIDCM 06/25/17 Surgical History: appendectomy Psychiatric History: No pertinent psych hx Lives: Spouse/ Significant Other Smoking Status: Current every day smoker Alcohol: None Drugs: None - *Family History Maternal History Items: Cancer Paternal History Items: Diabetes, Stroke Review of Systems Constitutional: Reports: - - complete ROS negative except as documented in HPI Patient Problems: Active and Suspected Problems Mental status change (Acute) Confusion (Acute) Meningitis (Acute) - Physical Exam General: Alert, Oriented x3, Cooperative HEENT: Atraumatic, PERRLA, EOMI, Normocephalic Neck: Supple, No JVD, Negative Carotid Bruits Lungs: Clear to auscultation, Normal air movement Cardiovascular: Regular rate, No murmurs Abdomen: Bowel Sounds Present, Soft, Non Tender Extremities: No edema, Capillary Refill Less than 3 Seconds Skin: No rashes, No breakdown Musculoskeletal: No Tenderness to Palpation of Joints or Extremities Neurological: - - consious, alert, AoA x3 at present, CN 2-12 grossly intact, moves all 4 extremities, no sensory loss, no cerebellar signs, Reflexes + B/L B/S/T/K/A, gair deferred, plantars b/l mute, mild NR Psych/Mental Status: Normal Affect, Appropriate Vital Signs Temp Pulse Resp BP Pulse Ox 98.0 F 70 15 125/66 H 96 06/26/17 04:00 06/26/17 14:14 06/26/17 04:00 06/26/17 04:00 06/26/17 00:00 Oxygen Delivery Method Room Air Weight: 89.3 kg Body Mass Index (BMI) 28.2 Intake and Output for Last 24 Hours 06/24/17 06/25/17 06/26/17 23:59 23:59 23:59 Intake Total 360 / 360 2286 / 2286 Output Total 200 / 200 1213 / 1213 Balance 160 / 160 1073 / 1073 Microbiology Past 72 Hours 06/26/17 11:39 Gram Stain - Final Csf, Spinal Fluid 06/25/17 14:36 Respiratory Panel (PCR) - Final Mucosa - Nasopharyngeal Laboratory Tests Past 24 Hrs 06/25/17 06/25/17 06/25/17 19:10 19:10 19:10 WBC RBC Hgb Hct MCV MCH MCHC RDW RDW Differential Plt Count MPV Immature Gran % (Auto) Neut % (Auto) Lymph % (Auto) [place] % (Auto) Eos % (Auto) Baso % (Auto) Absolute Neuts (auto) Absolute Lymphs (auto) Total Counted ESR Sodium Potassium Chloride Carbon Dioxide Anion Gap BUN Creatinine Estim Creat Clear Calc Est GFR (MDRD) Af Amer Est GFR (MDRD) Non-Af BUN/Creatinine Ratio Glucose Lactic Acid Calcium Ammonia 29.0 Vitamin B12 415 Fld Polynuclear WBCs # Fld Polynuclear WBCs % Fluid Mononuclear WBCs Fld Mononuclear WBCs % CSF Appearance CSF Color CSF WBC CSF RBC CSF Cell Count Tube # CSF Total Cell Counted CSF Neutrophils CSF Lymphocytes CSF Comment CSF Glucose CSF Total Protein CSF Cryptococcus Ag RPR NONREACTIVE CMV DNA Qual PCR Enterovirus RNA (PCR) Herpes Simplex Culture HSV I DNA PCR HSV II DNA PCR HSV Final Result Miscellaneous Cytology 06/25/17 06/25/17 06/26/17 19:10 20:49 05:20 WBC 7.1 RBC 5.41 Hgb 14.9 Hct 43.0 MCV 79.5 L MCH 27.5 MCHC 34.7 RDW 14.2 RDW Differential 40.8 Plt Count 302 MPV 11.3 Immature Gran % (Auto) 0.100 Neut % (Auto) 87.1 H Lymph % (Auto) 9.6 L [place] % (Auto) 3.1 Eos % (Auto) 0.0 Baso % (Auto) 0.1 Absolute Neuts (auto) 6.1 Absolute Lymphs (auto) 0.68 L Total Counted Not Reportable ESR 15 Sodium Potassium Chloride Carbon Dioxide Anion Gap BUN Creatinine Estim Creat Clear Calc Est GFR (MDRD) Af Amer Est GFR (MDRD) Non-Af BUN/Creatinine Ratio Glucose Lactic Acid 0.9 Calcium Ammonia Vitamin B12 Fld Polynuclear WBCs # Fld Polynuclear WBCs % Fluid Mononuclear WBCs Fld Mononuclear WBCs % CSF Appearance CSF Color CSF WBC CSF RBC CSF Cell Count Tube # CSF Total Cell Counted CSF Neutrophils CSF Lymphocytes CSF Comment CSF Glucose CSF Total Protein CSF Cryptococcus Ag RPR CMV DNA Qual PCR Enterovirus RNA (PCR) Herpes Simplex Culture HSV I DNA PCR HSV II DNA PCR HSV Final Result Miscellaneous Cytology 06/26/17 06/26/17 06/26/17 05:20 11:39 11:39 WBC RBC Hgb Hct MCV MCH MCHC RDW RDW Differential Plt Count MPV Immature Gran % (Auto) Neut % (Auto) Lymph % (Auto) [place] % (Auto) Eos % (Auto) Baso % (Auto) Absolute Neuts (auto) Absolute Lymphs (auto) Total Counted ESR Sodium 135 L Potassium 3.7 Chloride 102 Carbon Dioxide 23.0 Anion Gap 10 BUN 14 Creatinine 0.95 Estim Creat Clear Calc 69.37 Est GFR (MDRD) Af Amer 99 Est GFR (MDRD) Non-Af 82 BUN/Creatinine Ratio 14.8 Glucose 168 H Lactic Acid Calcium 8.7 Ammonia Vitamin B12 Fld Polynuclear WBCs # Fld Polynuclear WBCs % Fluid Mononuclear WBCs Fld Mononuclear WBCs % CSF Appearance CSF Color CSF WBC CSF RBC CSF Cell Count Tube # CSF Total Cell Counted CSF Neutrophils CSF Lymphocytes CSF Comment CSF Glucose 91 H CSF Total Protein 102.0 H CSF Cryptococcus Ag Pending RPR CMV DNA Qual PCR Pending Enterovirus RNA (PCR) Pending Herpes Simplex Culture Pending HSV I DNA PCR Pending HSV II DNA PCR Pending HSV Final Result Pending Miscellaneous Cytology 06/26/17 06/26/17 11:39 11:39 WBC RBC Hgb Hct MCV MCH MCHC RDW RDW Differential Plt Count MPV Immature Gran % (Auto) Neut % (Auto) Lymph % (Auto) [place] % (Auto) Eos % (Auto) Baso % (Auto) Absolute Neuts (auto) Absolute Lymphs (auto) Total Counted ESR Sodium Potassium Chloride Carbon Dioxide Anion Gap BUN Creatinine Estim Creat Clear Calc Est GFR (MDRD) Af Amer Est GFR (MDRD) Non-Af BUN/Creatinine Ratio Glucose Lactic Acid Calcium Ammonia Vitamin B12 Fld Polynuclear WBCs # 0.007 Fld Polynuclear WBCs % 4.3 Fluid Mononuclear WBCs 0.155 Fld Mononuclear WBCs % 95.7 CSF Appearance CLEAR CSF Color COLORLESS CSF WBC 0.162 H CSF RBC 0 CSF Cell Count Tube # 4 CSF Total Cell Counted 0.163 H CSF Neutrophils 4 CSF Lymphocytes 96 H CSF Comment May follow CSF Glucose CSF Total Protein CSF Cryptococcus Ag RPR CMV DNA Qual PCR Enterovirus RNA (PCR) Herpes Simplex Culture HSV I DNA PCR HSV II DNA PCR HSV Final Result Miscellaneous Cytology Pending POC Glucose 06/26/17 06/25/17 06:50 22:49 POC Glucose 164 H 201 H Assessment/Plan Active and Suspected Problems Mental status change (Acute) Confusion (Acute) Meningitis (Acute) The patient is a 76 year old CM with PMH HTN, DM admitted with confusion. Per patient he is not sure why he is admitted to the hospital. History is obtained from medical records and patient. 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 Per documentation he was recently seen for flu like symptoms, had some dental work, and now he was admitted with confusion. CT head and MRI brain following admission did not show any acute vascular changes. Patient was felt to be having NR on admission and hence was started on meningitic dose of antibiotics empirically and had LP this morning reported to show WBCs 162, lymphocytic predominance, protein 102 and glucose 91. At present patient is almost near his baseline, denies any BEARDEN, visual disturbances, focal motor weakness or sensory loss. Per patient he lives with his , does not use cane or walker to ambulate, denies any falls, does drive and does not need any assistance for his ADLs. 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 -Recommend starting empirical Acyclovir 10mg/kg iv q 8 hrly till HSV PCR results come back -Further management per ID recommendations -GI/DVT prophylaxis -PT/OT -Fall precautions -Please call with questions if any -Thank you for allowing us to participate in patients care and management I spent 60 minutes taking history, doing physical examination, reviewing medical records, coordinating care and counseling patient. Code Visit Inpatient E&M: [id number] Init Hosp L3
[2017-06-26 15:30] LABS: Bedside Glucose 194 mg/dL (70-110)
--- NOTE | 2017-06-26 16:23 | PCM.HP.ID ---
Problem List (1) Meningitis Status: Acute Reason for Consult: meningitis Consulted by: Dr. Beltran History of Present Illness: The patient is a 76 year old M shanks who presented with 4-5 days of mild headache, neck pain, and confusion. No rash, no vision changes, no shingles, no recent cold sores, no recent bug/tick bites. 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 No reports of birds around the farm. No sick contacts. Reports having some cold sores around his mouth when he was young. Was started on amoxicillin as an outpatient recently. Came to ED, CT and MRI done, had LP today. Was started on vanc, amp, ceftriaxone, acyclovir, and dexamethasone. Mental status much better today. Full ROS Performed and neg except as noted above. - Medical History Past Medical History (Chronic Problems): Chronic Problems Type 2 diabetes mellitus (Chronic) Hypertension (Chronic) Tobacco abuse (Chronic) Allergies/Adverse Reactions: Allergies No Known Allergies Allergy (Verified 06/25/17 12:30) Home Medications: Ambulatory Orders Medication Instructions Recorded Amlodipine [Norvasc] 2.5 mg PO DAILY 06/25/17 Amoxicillin [Amoxil] 500 mg PO Q6H 06/25/17 Ibuprofen [Ibuprofen] 1 tab PO Q8H PRN PRN 06/25/17 Insulin Aspart [Novolog Flexpen 6 units SC BIDCM 06/25/17 ([facility])] Insulin Glargine,Hum.rec.anlog 48 unit SQ QHS 06/25/17 [Lantus] Lisinopril/Hydrochlorothiazide 1 each PO DAILY 06/25/17 [Zestoretic 20-25 mg Tablet] Metformin HCl [Glucophage] 1,000 mg PO BIDCM 06/25/17 Vital Signs Temp Pulse Resp BP Pulse Ox 98.0 F 70 15 125/66 H 96 06/26/17 04:00 06/26/17 14:14 06/26/17 04:00 06/26/17 04:00 06/26/17 00:00 Oxygen Delivery Method Room Air Weight: 89.3 kg Body Mass Index (BMI) 28.2 Microbiology Past 72 Hours 06/26/17 11:39 Gram Stain - Final Csf, Spinal Fluid 06/25/17 14:36 Respiratory Panel (PCR) - Final Mucosa - Nasopharyngeal Laboratory Tests Past 24 Hrs 06/25/17 06/25/17 06/25/17 19:10 19:10 19:10 WBC RBC Hgb Hct MCV MCH MCHC RDW RDW Differential Plt Count MPV Immature Gran % (Auto) Neut % (Auto) Lymph % (Auto) [place] % (Auto) Eos % (Auto) Baso % (Auto) Absolute Neuts (auto) Absolute Lymphs (auto) Total Counted ESR Sodium Potassium Chloride Carbon Dioxide Anion Gap BUN Creatinine Estim Creat Clear Calc Est GFR (MDRD) Af Amer Est GFR (MDRD) Non-Af BUN/Creatinine Ratio Glucose Lactic Acid Calcium Ammonia 29.0 Vitamin B12 415 Fld Polynuclear WBCs # Fld Polynuclear WBCs % Fluid Mononuclear WBCs Fld Mononuclear WBCs % CSF Appearance CSF Color CSF WBC CSF RBC CSF Cell Count Tube # CSF Total Cell Counted CSF Neutrophils CSF Lymphocytes CSF Comment CSF Glucose CSF Total Protein CSF Cryptococcus Ag RPR NONREACTIVE CMV DNA Qual PCR Enterovirus RNA (PCR) Herpes Simplex Culture HSV I DNA PCR HSV II DNA PCR HSV Final Result Miscellaneous Cytology 06/25/17 06/25/17 06/26/17 19:10 20:49 05:20 WBC 7.1 RBC 5.41 Hgb 14.9 Hct 43.0 MCV 79.5 L MCH 27.5 MCHC 34.7 RDW 14.2 RDW Differential 40.8 Plt Count 302 MPV 11.3 Immature Gran % (Auto) 0.100 Neut % (Auto) 87.1 H Lymph % (Auto) 9.6 L [place] % (Auto) 3.1 Eos % (Auto) 0.0 Baso % (Auto) 0.1 Absolute Neuts (auto) 6.1 Absolute Lymphs (auto) 0.68 L Total Counted Not Reportable ESR 15 Sodium Potassium Chloride Carbon Dioxide Anion Gap BUN Creatinine Estim Creat Clear Calc Est GFR (MDRD) Af Amer Est GFR (MDRD) Non-Af BUN/Creatinine Ratio Glucose Lactic Acid 0.9 Calcium Ammonia Vitamin B12 Fld Polynuclear WBCs # Fld Polynuclear WBCs % Fluid Mononuclear WBCs Fld Mononuclear WBCs % CSF Appearance CSF Color CSF WBC CSF RBC CSF Cell Count Tube # CSF Total Cell Counted CSF Neutrophils CSF Lymphocytes CSF Comment CSF Glucose CSF Total Protein CSF Cryptococcus Ag RPR CMV DNA Qual PCR Enterovirus RNA (PCR) Herpes Simplex Culture HSV I DNA PCR HSV II DNA PCR HSV Final Result Miscellaneous Cytology 06/26/17 06/26/17 06/26/17 05:20 11:39 11:39 WBC RBC Hgb Hct MCV MCH MCHC RDW RDW Differential Plt Count MPV Immature Gran % (Auto) Neut % (Auto) Lymph % (Auto) [place] % (Auto) Eos % (Auto) Baso % (Auto) Absolute Neuts (auto) Absolute Lymphs (auto) Total Counted ESR Sodium 135 L Potassium 3.7 Chloride 102 Carbon Dioxide 23.0 Anion Gap 10 BUN 14 Creatinine 0.95 Estim Creat Clear Calc 69.37 Est GFR (MDRD) Af Amer 99 Est GFR (MDRD) Non-Af 82 BUN/Creatinine Ratio 14.8 Glucose 168 H Lactic Acid Calcium 8.7 Ammonia Vitamin B12 Fld Polynuclear WBCs # Fld Polynuclear WBCs % Fluid Mononuclear WBCs Fld Mononuclear WBCs % CSF Appearance CSF Color CSF WBC CSF RBC CSF Cell Count Tube # CSF Total Cell Counted CSF Neutrophils CSF Lymphocytes CSF Comment CSF Glucose 91 H CSF Total Protein 102.0 H CSF Cryptococcus Ag Pending RPR CMV DNA Qual PCR Pending Enterovirus RNA (PCR) Pending Herpes Simplex Culture Pending HSV I DNA PCR Pending HSV II DNA PCR Pending HSV Final Result Pending Miscellaneous Cytology 06/26/17 06/26/17 11:39 11:39 WBC RBC Hgb Hct MCV MCH MCHC RDW RDW Differential Plt Count MPV Immature Gran % (Auto) Neut % (Auto) Lymph % (Auto) [place] % (Auto) Eos % (Auto) Baso % (Auto) Absolute Neuts (auto) Absolute Lymphs (auto) Total Counted ESR Sodium Potassium Chloride Carbon Dioxide Anion Gap BUN Creatinine Estim Creat Clear Calc Est GFR (MDRD) Af Amer Est GFR (MDRD) Non-Af BUN/Creatinine Ratio Glucose Lactic Acid Calcium Ammonia Vitamin B12 Fld Polynuclear WBCs # 0.007 Fld Polynuclear WBCs % 4.3 Fluid Mononuclear WBCs 0.155 Fld Mononuclear WBCs % 95.7 CSF Appearance CLEAR CSF Color COLORLESS CSF WBC 0.162 H CSF RBC 0 CSF Cell Count Tube # 4 CSF Total Cell Counted 0.163 H CSF Neutrophils 4 CSF Lymphocytes 96 H CSF Comment May follow CSF Glucose CSF Total Protein CSF Cryptococcus Ag RPR CMV DNA Qual PCR Enterovirus RNA (PCR) Herpes Simplex Culture HSV I DNA PCR HSV II DNA PCR HSV Final Result Miscellaneous Cytology Pending - Other Studies Radiology: [] reviewed Other Studies: [] Route of nutrition/ use of supplements: [] Nutritional Intake: [] IV Site: [] Morales Catheter: [] - Physical Exam General: Alert, Oriented x3, Cooperative, No apparent distress HEENT: Atraumatic, PERRLA, EOMI Neck: Supple - mild soreness with ROM, No Nodes Lungs: Clear to auscultation, Normal air movement Cardiovascular: Regular rate, Regular Rhythm Abdomen: Bowel Sounds Present, Soft, Non Tender, Non-Distended Extremities: No edema Skin: No rashes IV Site: Peripheral, without redness Musculoskeletal: No Tenderness to Palpation of Joints or Extremities Neurological: Cranial nerves II-XII grossly intact - Assessment/Plan Antibiotics: [] Assessment/Plan: [] Active and Suspected Problems Mental status change (Acute) Confusion (Acute) Aseptic meningitis with headache, neck pain, and confusion - no focal neuro findings. Mental status much improved. CSF shows wbc around 160 with 96% lymphs. Stop vanc/amp/ceftriaxone/dex/dropley precautions as results and history not consistent with bacterial meningitis. Cont acyclovir while HSV pcr is pending. If he is discharged prior to the results being available, would send home on valtrex 1gm tid for 7 more days of therapy. Thank you, will follow, d/w primary team.
[2017-06-26 16:31] LABS: Bedside Glucose 231 mg/dL (70-110)
--- NOTE | 2017-06-26 16:40 | CASEMGMT ---
TYRESE BONILLA Face to Face with patient for initial transition planning/care coordination assessment. TYRESE BONILLA introduced self and role at [facility]. Patient lying in bed, alert and oriented, and family at bedside. Patient willing to participate in assessment and is able to answer all questions appropriately. Care providers, pharmacy, and demographics verified. See link attached. Patient wishes to discharge home with possible HHC if needed. Patient states that he does not want to go to SNF. TYRESE BONILLA explained to patient and family that CM will monitor his progress with therapy and needs and assist with proper discharge. Patient and family state they has no further needs or concerns at this time. CM to follow for discharge planning needs that may arise. Disposition Plan: TBD. Will monitor patient's progress and therapy notes to determine discharge plan.
[2017-06-26] MEDS: QUEtiapine 25 MG Tablet PO (22:22)
[2017-06-26 22:41] LABS: Bedside Glucose 206 mg/dL (70-110)
[2017-06-27] VITALS (11 sets, daily range): BP systolic 113–130; BP diastolic 53–64; PULSE 59–73; RESP 16–18; TEMP 36.4–36.9; O2SAT 95–98
[2017-06-27] MEDS: 0.9% Normal Saline 1,000 ML 75 ML IV ×2 (04:37→20:30)
[2017-06-27 06:51] LABS: Bedside Glucose 139 mg/dL (70-110)
--- NOTE | 2017-06-27 09:06 | PN_ITS ---
Patient Problems: Active and Suspected Problems Mental status change (Acute) Confusion (Acute) Meningitis (Acute) Subjective: Patient seen and examined. States he feels very weak. Remains somewhat confused although greatly improved from previous assessments. States he is in [place] and then corrects himself and states [place]. He denies other associated complaints. Denies fever, chills. Patient states he would like to go home as soon as possible. However, he is requiring a two-person assist with ambulation and transfers. - Physical Exam General: Alert, Cooperative, Confused - Improved HEENT: Atraumatic, PERRLA, EOMI, Normocephalic Neck: Supple, No JVD, Negative Carotid Bruits Lungs: Clear to auscultation, Normal air movement Cardiovascular: Regular rate, Regular Rhythm, Normal S1, Normal S2, No murmurs Abdomen: Bowel Sounds Present, Soft, Non Tender, Non-Distended Extremities: No clubbing, No cyanosis, No edema, Capillary Refill Less than 3 Seconds Skin: No rashes, No breakdown Musculoskeletal: No Tenderness to Palpation of Joints or Extremities Neurological: Cranial nerves II-XII grossly intact Psych/Mental Status: Normal Affect, Appropriate Vital Signs Temp Pulse Resp BP Pulse Ox 97.6 F L 62 18 128/55 H 96 06/27/17 04:59 06/27/17 04:59 06/27/17 04:59 06/27/17 04:59 06/27/17 04:59 Oxygen Delivery Method Room Air Weight: 89.3 kg Body Mass Index (BMI) 28.2 Intake and Output for Last 24 Hours 06/25/17 06/26/17 06/27/17 23:59 23:59 23:59 Intake Total 360 / 360 3168 / 3168 893 / 893 Output Total 200 / 200 2413 / 2413 1999 Balance 160 / 160 755 / 755 -1107 / -1107 Microbiology Past 72 Hours 06/25/17 18:20 Urine Culture - Preliminary Urine, Midstream Culture exhibits no growth. 06/26/17 11:39 Gram Stain - Final Csf, Spinal Fluid 06/25/17 14:36 Respiratory Panel (PCR) - Final Mucosa - Nasopharyngeal Laboratory Tests Past 24 Hrs 06/26/17 06/26/17 06/26/17 11:39 11:39 11:39 Fld Polynuclear WBCs # Fld Polynuclear WBCs % Fluid Mononuclear WBCs Fld Mononuclear WBCs % CSF Appearance CSF Color CSF WBC CSF RBC CSF Cell Count Tube # CSF Total Cell Counted CSF Neutrophils CSF Lymphocytes CSF Comment CSF Glucose 91 H CSF Total Protein 102.0 H CSF Cryptococcus Ag Pending CMV DNA Qual PCR Pending Enterovirus RNA (PCR) Pending Herpes Simplex Culture Pending HSV I DNA PCR Pending HSV II DNA PCR Pending HSV Final Result Pending Miscellaneous Cytology Pending 06/26/17 11:39 Fld Polynuclear WBCs # 0.007 Fld Polynuclear WBCs % 4.3 Fluid Mononuclear WBCs 0.155 Fld Mononuclear WBCs % 95.7 CSF Appearance CLEAR CSF Color COLORLESS CSF WBC 0.162 H CSF RBC 0 CSF Cell Count Tube # 4 CSF Total Cell Counted 0.163 H CSF Neutrophils 4 CSF Lymphocytes 96 H CSF Comment May follow CSF Glucose CSF Total Protein CSF Cryptococcus Ag CMV DNA Qual PCR Enterovirus RNA (PCR) Herpes Simplex Culture HSV I DNA PCR HSV II DNA PCR HSV Final Result Miscellaneous Cytology POC Glucose 06/27/17 06/26/17 06/26/17 06:45 22:24 16:17 POC Glucose 139 H 206 H 231 H 06/26/17 11:56 POC Glucose 194 H Assessment/Plan Active and Suspected Problems Mental status change (Acute) Confusion (Acute) Meningitis (Acute) Patient is a 76-year-old male admitted 06/25/17 due to generalized weakness, altered mental status. He has a past medical history of type 2 diabetes mellitus, hypertension, tobacco use. 1. Acute encephalopathy secondary to viral meningitis-CSF shows 162 WBC with 96 lymphocytes. Antibiotics discontinued. Infectious disease and neurology consulted. Patient will continue acyclovir while HSV PCR is pending. Patient' s mental status is improving, however he continues to have generalized weakness. Other workup has been unremarkable. Brain CT shows chronic changes, sinusitis. Chest x-ray shows no acute abnormality. Respiratory panel negative. MRI of brain shows no evidence of acute intracranial bleed, mass or ischemia. Lumbar spine x-ray shows degenerative changes of the spine. No fracture. Urinalysis unremarkable. Echocardiogram showed an estimated ejection fraction of 60% with mild tricuspid valve insufficiency. Blood cultures pending. 2. Generalized weakness-secondary to #1. PT/OT. Patient does not want to go to SNF. Wishes to return home. Continue therapy and monitor progression. 3. Type 2 diabetes [id number] before meals at bedtime. Continue long- acting insulin regimen. Sliding scale insulin. Hold metformin. 4. Hypertension-stable, continue home regimen. 5. Tobacco abuse-encourage smoking cessation. Nicotine replacement if desired. DVT prophylaxis-Lovenox subcu. This patient was seen by ELIZABETH Boudreaux under the supervision of Dr. Beltran.
[2017-06-27 09:27] LABS: Hematocrit 41.5 % (40-54); Hemoglobin 14.2 g/dl (13.0-16.5); Mean Corp Hgb Conc 34.2 g/gl (32-36); Mean Corpuscular Hgb 27.6 pg (27.0-32.0); Mean Corpuscular Volume 80.7 fL (80-94); Mean Platelet Vol. 10.6 fl (6.2-12.0); Platelet Count 300 K/mm3 (150-450); RBC Distribution Width CV 14.4 % (11.6-14.6); RBC Distribution Width SD 41.5 fl (35.1-43.9); Red Blood Count 5.14 M/mm3 (4.6-6.2); White Blood Count 11.9 K/mm3 (4.4-11.0)
[2017-06-27] MEDS: amLODIPine 2.5 MG Tablet PO (09:35)
[2017-06-27] MEDS: Lisinopril 20 MG Tablet PO (09:35)
[2017-06-27] MEDS: Enoxaparin 40 MG/0.4 ML Syringe SC (09:36)
[2017-06-27] MEDS: QUEtiapine 25 MG Tablet PO ×2 (09:36→22:04)
[2017-06-27] MEDS: hydroCHLOROthiazide 25 MG Tablet PO (09:36)
[2017-06-27 09:38] LABS: Scan Indicated on CBC? Y/N NO
[2017-06-27 09:42] LABS: Anion Gap 8 (5-15); BUN 16 mg/dL (7-18); BUN/Creat Ratio 18.2 RATIO (10-20); Calcium,Total 8.5 mg/dL (8.5-10.1); Chloride 106 mmol/L (98-107); Creatinine, Serum 0.88 mg/dL (0.70-1.30); EST Glomerular Filtration Rate 90 mL/min (>60); Est Glom Filt Rate - Afr Amer 109 mL/min (>60); Estimated Creatinine Clearance 74.89 ml/min; Glucose 112 mg/dL (74-106); Potassium 3.3 mmol/L (3.5-5.1); Sodium Level 138 mmol/L (136-145)
[2017-06-27 12:01] LABS: Bedside Glucose 124 mg/dL (70-110)
[2017-06-27] MEDS: Glucerna Shake 120 ML LIQUID PO (16:27)
[2017-06-27] MEDS: 0.9% NaCl Peripheral Flush Adult/Peds IV (16:27)
[2017-06-27 16:31] LABS: Bedside Glucose 141 mg/dL (70-110)
[2017-06-27 22:11] LABS: Bedside Glucose 144 mg/dL (70-110)
[2017-06-28] VITALS (12 sets, daily range): BP systolic 128–144; BP diastolic 50–61; PULSE 64–75; RESP 16–20; TEMP 36.4–36.6; O2SAT 94–98
[2017-06-28 06:31] LABS: Bedside Glucose 88 mg/dL (70-110)
[2017-06-28 06:46] LABS: Hematocrit 41.2 % (40-54); Mean Corpuscular Hgb 27.6 pg (27.0-32.0); Mean Corpuscular Volume 81.3 fL (80-94); Mean Platelet Vol. 11.2 fl (6.2-12.0); Platelet Count 292 K/mm3 (150-450); RBC Distribution Width CV 14.4 % (11.6-14.6); Red Blood Count 5.07 M/mm3 (4.6-6.2); White Blood Count 9.7 K/mm3 (4.4-11.0)
[2017-06-28 06:52] LABS: Scan Indicated on CBC? Y/N NO
[2017-06-28 07:10] LABS: Anion Gap 9 (5-15); BUN 14 mg/dL (7-18); BUN/Creat Ratio 17.6 RATIO (10-20); Calcium,Total 8.4 mg/dL (8.5-10.1); Chloride 103 mmol/L (98-107); EST Glomerular Filtration Rate 101 mL/min (>60); Est Glom Filt Rate - Afr Amer 122 mL/min (>60); Estimated Creatinine Clearance 82.38 ml/min; Glucose 74 mg/dL (74-106); Potassium 3.6 mmol/L (3.5-5.1); Sodium Level 136 mmol/L (136-145)
[2017-06-28] MEDS: QUEtiapine 25 MG Tablet PO ×2 (10:09→21:23)
[2017-06-28] MEDS: Enoxaparin 40 MG/0.4 ML Syringe SC (10:09)
[2017-06-28] MEDS: amLODIPine 2.5 MG Tablet PO (10:09)
[2017-06-28] MEDS: hydroCHLOROthiazide 25 MG Tablet PO (10:09)
[2017-06-28] MEDS: Lisinopril 20 MG Tablet PO (10:10)
--- NOTE | 2017-06-28 10:41 | PCM.PROGNOTE ---
Patient Problems: Active and Suspected Problems Mental status change (Acute) Confusion (Acute) Meningitis (Acute) Subjective: Patient seen and examined. Resting in chair. Continues to complain of weakness, fatigue. Confusion improved. Denies fever, chills. Denies other associated complaints. Patient agreeable to rehab or SNF at discharge for further therapy. - Physical Exam General: Alert, Oriented x3, Cooperative, No apparent distress HEENT: Atraumatic, PERRLA, EOMI, Normocephalic Neck: Supple, No JVD, Negative Carotid Bruits Lungs: Clear to auscultation, Normal air movement Cardiovascular: Regular rate, Regular Rhythm, Normal S1, Normal S2, No murmurs Abdomen: Bowel Sounds Present, Soft, Non Tender, Non-Distended Extremities: No clubbing, No cyanosis, No edema, Capillary Refill Less than 3 Seconds Skin: No rashes, No breakdown Musculoskeletal: No Tenderness to Palpation of Joints or Extremities Neurological: Cranial nerves II-XII grossly intact, Neuro grossly intact Psych/Mental Status: Normal Affect, Appropriate Vital Signs Temp Pulse Resp BP Pulse Ox 98 F 75 20 H 144/50 H 94 06/28/17 08:45 06/28/17 08:45 06/28/17 09:00 06/28/17 08:45 06/28/17 09:00 Oxygen Delivery Method Room Air Weight: 89.3 kg Body Mass Index (BMI) 28.2 Intake and Output for Last 24 Hours 06/26/17 06/27/17 06/28/17 23:59 23:59 23:59 Intake Total 3168 / 3168 2873 / 2873 1496 / 1496 Output Total 2413 / 2413 3525 / 3525 700 / 700 Balance 755 / 755 -652 / -652 796 / 796 Microbiology Past 72 Hours 06/25/17 19:10 Blood Culture - Preliminary Blood Culture (Wb) - Right Hand No growth in 48 hours. 06/25/17 20:49 Blood Culture - Preliminary Blood Culture (Wb) - Right Hand No growth in 48 hours. 06/26/17 11:39 Gram Stain - Final Csf, Spinal Fluid CSF Culture - Preliminary Culture exhibits no growth. 06/25/17 18:20 Urine Culture - Final Urine, Midstream Culture exhibits no growth. 06/25/17 14:36 Respiratory Panel (PCR) - Final Mucosa - Nasopharyngeal Laboratory Tests Past 24 Hrs 06/28/17 06/28/17 05:35 05:35 WBC 9.7 RBC 5.07 Hgb 14.0 Hct 41.2 MCV 81.3 MCH 27.6 MCHC 34.0 RDW 14.4 RDW Differential 42.0 Plt Count 292 MPV 11.2 Sodium 136 Potassium 3.6 Chloride 103 Carbon Dioxide 24.0 Anion Gap 9 BUN 14 Creatinine 0.80 Estim Creat Clear Calc 82.38 Est GFR (MDRD) Af Amer 122 Est GFR (MDRD) Non-Af 101 BUN/Creatinine Ratio 17.6 Glucose 74 Calcium 8.4 L POC Glucose 06/28/17 06/27/17 06/27/17 06:23 22:01 16:23 POC Glucose 88 144 H 141 H 06/27/17 11:50 POC Glucose 124 H Assessment/Plan Active and Suspected Problems Mental status change (Acute) Confusion (Acute) Meningitis (Acute) Patient is a 76-year-old male admitted 06/25/17 due to generalized weakness, altered mental status. He has a past medical history of type 2 diabetes mellitus, hypertension, tobacco use. 1. Acute encephalopathy secondary to viral meningitis-CSF shows 162 WBC with 96 lymphocytes. Antibiotics discontinued. Infectious disease and neurology consulted. Patient will continue acyclovir while HSV PCR is pending. Patient's mental status is improving, however he continues to have generalized weakness. Other workup has been unremarkable. Brain CT shows chronic changes, sinusitis. Chest x-ray shows no acute abnormality. Respiratory panel negative. MRI of brain shows no evidence of acute intracranial bleed, mass or ischemia. Lumbar spine x-ray shows degenerative changes of the spine. No fracture. Urinalysis unremarkable. Echocardiogram showed an estimated ejection fraction of 60% with mild tricuspid valve insufficiency. Blood cultures show no growth. Plan to start discharge to rehab or SNF tomorrow for further therapy. 2. Generalized weakness-secondary to #1. PT/OT. Consult case management regarding discharge planning to rehab versus SNF. 3. Type 2 diabetes [id number]-Ixbo-Aaxup before meals at bedtime. Continue long-acting insulin regimen. Sliding scale insulin. Hold metformin. 4. Hypertension-stable, continue home regimen. 5. Tobacco abuse-encourage smoking cessation. Nicotine replacement if desired. DVT prophylaxis-Lovenox subcu. This patient was seen by ELIZABETH Boudreaux under the supervision of Dr. Beltran.
--- NOTE | 2017-06-28 10:49 | PN_ITS ---
Patient Problems: Active and Suspected Problems Mental status change (Acute) Confusion (Acute) Meningitis (Acute) Subjective: Patient seen and examined. Resting in chair. Continues to complain of weakness , fatigue. Confusion improved. Denies fever, chills. Denies other associated complaints. Patient agreeable to rehab or SNF at discharge for further therapy. - Physical Exam General: Alert, Oriented x3, Cooperative, No apparent distress HEENT: Atraumatic, PERRLA, EOMI, Normocephalic Neck: Supple, No JVD, Negative Carotid Bruits Lungs: Clear to auscultation, Normal air movement Cardiovascular: Regular rate, Regular Rhythm, Normal S1, Normal S2, No murmurs Abdomen: Bowel Sounds Present, Soft, Non Tender, Non-Distended Extremities: No clubbing, No cyanosis, No edema, Capillary Refill Less than 3 Seconds Skin: No rashes, No breakdown Musculoskeletal: No Tenderness to Palpation of Joints or Extremities Neurological: Cranial nerves II-XII grossly intact, Neuro grossly intact Psych/Mental Status: Normal Affect, Appropriate Vital Signs Temp Pulse Resp BP Pulse Ox 98 F 75 20 H 144/50 H 94 06/28/17 08:45 06/28/17 08:45 06/28/17 09:00 06/28/17 08:45 06/28/17 09:00 Oxygen Delivery Method Room Air Weight: 89.3 kg Body Mass Index (BMI) 28.2 Intake and Output for Last 24 Hours 06/26/17 06/27/17 06/28/17 23:59 23:59 23:59 Intake Total 3168 / 3168 2873 / 2873 1496 / 1496 Output Total 2413 / 2413 3525 / 3525 700 / 700 Balance 755 / 755 -652 / -652 796 / 796 Microbiology Past 72 Hours 06/25/17 19:10 Blood Culture - Preliminary Blood Culture (Wb) - Right Hand No growth in 48 hours. 06/25/17 20:49 Blood Culture - Preliminary Blood Culture (Wb) - Right Hand No growth in 48 hours. 06/26/17 11:39 Gram Stain - Final Csf, Spinal Fluid CSF Culture - Preliminary Culture exhibits no growth. 06/25/17 18:20 Urine Culture - Final Urine, Midstream Culture exhibits no growth. 06/25/17 14:36 Respiratory Panel (PCR) - Final Mucosa - Nasopharyngeal Laboratory Tests Past 24 Hrs 06/28/17 06/28/17 05:35 05:35 WBC 9.7 RBC 5.07 Hgb 14.0 Hct 41.2 MCV 81.3 MCH 27.6 MCHC 34.0 RDW 14.4 RDW Differential 42.0 Plt Count 292 MPV 11.2 Sodium 136 Potassium 3.6 Chloride 103 Carbon Dioxide 24.0 Anion Gap 9 BUN 14 Creatinine 0.80 Estim Creat Clear Calc 82.38 Est GFR (MDRD) Af Amer 122 Est GFR (MDRD) Non-Af 101 BUN/Creatinine Ratio 17.6 Glucose 74 Calcium 8.4 L POC Glucose 06/28/17 06/27/17 06/27/17 06:23 22:01 16:23 POC Glucose 88 144 H 141 H 06/27/17 11:50 POC Glucose 124 H Assessment/Plan Active and Suspected Problems Mental status change (Acute) Confusion (Acute) Meningitis (Acute) Patient is a 76-year-old male admitted 06/25/17 due to generalized weakness, altered mental status. He has a past medical history of type 2 diabetes mellitus, hypertension, tobacco use. 1. Acute encephalopathy secondary to viral meningitis-CSF shows 162 WBC with 96 lymphocytes. Antibiotics discontinued. Infectious disease and neurology consulted. Patient will continue acyclovir while HSV PCR is pending. Patient' s mental status is improving, however he continues to have generalized weakness. Other workup has been unremarkable. Brain CT shows chronic changes, sinusitis. Chest x-ray shows no acute abnormality. Respiratory panel negative. MRI of brain shows no evidence of acute intracranial bleed, mass or ischemia. Lumbar spine x-ray shows degenerative changes of the spine. No fracture. Urinalysis unremarkable. Echocardiogram showed an estimated ejection fraction of 60% with mild tricuspid valve insufficiency. Blood cultures show no growth. Plan to start discharge to rehab or SNF tomorrow for further therapy. 2. Generalized weakness-secondary to #1. PT/OT. Consult case management regarding discharge planning to rehab versus SNF. 3. Type 2 diabetes [id number] before meals at bedtime. Continue long- acting insulin regimen. Sliding scale insulin. Hold metformin. 4. Hypertension-stable, continue home regimen. 5. Tobacco abuse-encourage smoking cessation. Nicotine replacement if desired. DVT prophylaxis-Lovenox subcu. This patient was seen by ELIZABETH Boudreaux under the supervision of Dr. Beltran.
[2017-06-28 12:36] LABS: Bedside Glucose 164 mg/dL (70-110)
[2017-06-28] MEDS: 0.9% Normal Saline 1,000 ML 75 ML IV ×2 (12:41→23:59)
[2017-06-28] MEDS: Acyclovir 800 MG Tablet PO ×3 (14:20→21:23)
[2017-06-28 17:11] LABS: Bedside Glucose 151 mg/dL (70-110)
[2017-06-28 20:56] LABS: Bedside Glucose 171 mg/dL (70-110)
[2017-06-29] VITALS (7 sets, daily range): BP systolic 114–147; BP diastolic 62–72; PULSE 62–75; RESP 16–18; TEMP 36.3–36.6; O2SAT 93–98
[2017-06-29 05:51] LABS: Hematocrit 43.8 % (40-54); Hemoglobin 14.6 g/dl (13.0-16.5); Mean Corp Hgb Conc 33.3 g/gl (32-36); Mean Corpuscular Hgb 27.4 pg (27.0-32.0); Mean Corpuscular Volume 82.3 fL (80-94); Mean Platelet Vol. 10.7 fl (6.2-12.0); Platelet Count 326 K/mm3 (150-450); RBC Distribution Width CV 14.3 % (11.6-14.6); RBC Distribution Width SD 43.1 fl (35.1-43.9); Red Blood Count 5.32 M/mm3 (4.6-6.2); White Blood Count 12.4 K/mm3 (4.4-11.0)
[2017-06-29] MEDS: Acyclovir 800 MG Tablet PO ×3 (05:55→14:36)
[2017-06-29 06:07] LABS: Scan Indicated on CBC? Y/N NO
[2017-06-29 06:11] LABS: Anion Gap 8 (5-15); BUN 11 mg/dL (7-18); BUN/Creat Ratio 11.3 RATIO (10-20); Calcium,Total 8.6 mg/dL (8.5-10.1); Chloride 103 mmol/L (98-107); Creatinine, Serum 0.97 mg/dL (0.70-1.30); EST Glomerular Filtration Rate 80 mL/min (>60); Est Glom Filt Rate - Afr Amer 97 mL/min (>60); Estimated Creatinine Clearance 67.94 ml/min; Glucose 160 mg/dL (74-106); Potassium 4.1 mmol/L (3.5-5.1); Sodium Level 136 mmol/L (136-145)
[2017-06-29 06:46] LABS: Bedside Glucose 181 mg/dL (70-110)
[2017-06-29] MEDS: Glucerna Shake 120 ML LIQUID PO ×2 (07:48→12:54)
[2017-06-29] MEDS: hydroCHLOROthiazide 25 MG Tablet PO (07:48)
[2017-06-29] MEDS: amLODIPine 2.5 MG Tablet PO (07:48)
[2017-06-29] MEDS: Lisinopril 20 MG Tablet PO (07:49)
[2017-06-29] MEDS: QUEtiapine 25 MG Tablet PO (07:49)
[2017-06-29] MEDS: Enoxaparin 40 MG/0.4 ML Syringe SC (07:49)
--- NOTE | 2017-06-29 08:51 | CASEMGMT ---
Social Work Note Per PT/OT recommendations the pt would be a candidate for [facility]. Placed call to Joselin, admissions in [facility], to request that she review the assess for appropriateness. Once determination made will discuss options of SNF and [facility] (if applicable). SW to continue to follow and assist with discharge planning. Plan: TBD. Diamante Jenkins, CLUB LICENSEE, VICE PRESIDENT PRECISION MARKET INSIGHTS
--- NOTE | 2017-06-29 10:09 | PCM.PN.HOSP ---
Patient Problems: Active and Suspected Problems Mental status change (Acute) Confusion (Acute) Meningitis (Acute) Vitals/I&O's: Vital Signs Temp Pulse Resp BP Pulse Ox 97.5 F L 75 16 147/72 H 93 06/29/17 07:37 06/29/17 09:07 06/29/17 07:37 06/29/17 07:37 06/29/17 07:37 Oxygen Delivery Method Room Air Weight: 89.3 kg Body Mass Index (BMI) 28.2 Intake and Output for Last 24 Hours 06/27/17 06/28/17 06/29/17 23:59 23:59 23:59 Intake Total 2873 / 2873 3392 / 3392 1228 / 1228 Output Total 3525 / 3525 2250 / 2250 1500 / 1500 Balance -652 / -652 1142 / 1142 -272 / -272 Microbiology Past 72 Hours 06/26/17 11:39 Csf, Spinal Fluid Gram Stain - Final 06/26/17 11:39 Csf, Spinal Fluid CSF Culture - Final Culture exhibits no growth. 06/25/17 19:10 Blood Culture (Wb) - Right Hand Blood Culture - Preliminary No growth in 48 hours. 06/25/17 20:49 Blood Culture (Wb) - Right Hand Blood Culture - Preliminary No growth in 48 hours. 06/25/17 18:20 Urine, Midstream Urine Culture - Final Culture exhibits no growth. Laboratory Results 06/28/17 12:25: POC Glucose 164 H 06/28/17 17:02: POC Glucose 151 H 06/28/17 20:51: POC Glucose 171 H 06/29/17 05:00: WBC 12.4 H, RBC 5.32, Hgb 14.6, Hct 43.8, MCV 82.3, MCH 27.4, MCHC 33.3, RDW 14.3, RDW Differential 43.1, Plt Count 326, MPV 10.7 06/29/17 05:00: Sodium 136, Potassium 4.1, Chloride 103, Carbon Dioxide 25.0, Anion Gap 8, BUN 11, Creatinine 0.97, Estim Creat Clear Calc 67.94, Est GFR (MDRD) Af Amer 97, Est GFR (MDRD) Non-Af 80, BUN/Creatinine Ratio 11.3, Glucose 160 H, Calcium 8.6 06/29/17 06:37: POC Glucose 181 H Current Medications Acetaminophen (Tylenol) 650 mg PO Q6H PRN PRN PRN Reason: FEVER Acyclovir (Zovirax) 800 mg PO 5X/DAY [facility] Last Admin: 06/29/17 07:49 Dose: 800 mg Amlodipine Besylate (Norvasc) 2.5 mg PO DAILY [facility] Last Admin: 06/29/17 07:48 Dose: 2.5 mg Dextrose (D50w Syringe) 0 gm IV X1 PRN; Protocol PRN Reason: Hypoglycemia Enoxaparin Sodium (Lovenox) 40 mg SC DAILY@1000 [facility] Last Admin: 06/29/17 07:49 Dose: 40 mg Glucagon () 1 mg IM .X1 PRN PRN Reason: Hypoglycemia Haloperidol Lactate (Haldol) 3 mg IM Q6H PRN PRN PRN Reason: AGITATION Hydrochlorothiazide (Hctz) 25 mg PO DAILY [facility] Last Admin: 06/29/17 07:48 Dose: 25 mg Sodium Chloride () 1,000 mls @ 75 mls/hr IV .[id number] [facility] Last Admin: 06/28/17 23:59 Dose: 75 mls/hr Insulin Aspart (Novolog Flexpen (Bkc)) 0 units SC ACHS DENICE PRN Reason: Protocol Last Admin: 06/29/17 06:39 Dose: 1 units Insulin Detemir (Levemir (Bkc)) 48 units SC QHS [facility] Last Admin: 06/28/17 21:23 Dose: 48 units Lisinopril (Zestril) 20 mg PO DAILY [facility] Last Admin: 06/29/17 07:49 Dose: 20 mg Nutritional Formula (Lactose Free) (Glucerna Shake) 120 ml PO TIDCM [facility] Last Admin: 06/29/17 07:48 Dose: 120 ml Quetiapine Fumarate (Seroquel) 25 mg PO BID [facility] Last Admin: 06/29/17 07:49 Dose: 25 mg Sodium Chloride () 5 - 30 ml IV UD PRN PRN Reason: SALINE FLUSH Last Admin: 06/27/17 16:27 Dose: 10 ml Assessment/Plan Active and Suspected Problems Mental status change (Acute) Confusion (Acute) Meningitis (Acute)
[2017-06-29] MEDS: Acetaminophen 325 MG Tablet 650 MG PO (10:22)
--- NOTE | 2017-06-29 10:39 | CASEMGMT ---
Social Work Note Updated by TYRESE Leon - that pt is now stating he does not recall having a conversation with the physician regarding placement and to talk with his . Placed call to the pt's , Adriana. Update that the pt is requiring the assistance of two people to performs ADL's and unsure that she would be able to manage at home on her own. Adriana expresses concern and inquires about how long the pt would need to stay at SNF. Inform that it ultimately depends on the pt's progress, but that an average stay is 1-2 weeks. She inquires what facilities are available. Inform that SW can call and check who has been availability once she provides a list of facilities and her preference of first-third choice. Adriaan states she will call her son and contact SW with choices by noon. SW to continue to follow and assist with discharge planning. Diamante Jenkins, RAND BUTTING MACHINE OPERATOR, SOFTWARE APPLICATIONS DESIGNER
--- NOTE | 2017-06-29 11:18 | PCM.PN.ID ---
Patient Problems: Active and Suspected Problems Mental status change (Acute) Confusion (Acute) Meningitis (Acute) Subjective: No further headache or neck pain. No fever. C/o chronic knee pain. - Physical Exam General: Alert, Oriented x3, Cooperative, No apparent distress Neck: Supple Lungs: Clear to auscultation, Normal air movement Cardiovascular: Regular rate, Regular Rhythm Abdomen: Soft, Non Tender, Non-Distended Skin: No rashes Musculoskeletal: No Tenderness to Palpation of Joints or Extremities Vital Signs Temp Pulse Resp BP Pulse Ox 97.5 F L 75 16 147/72 H 93 06/29/17 07:37 06/29/17 09:07 06/29/17 07:37 06/29/17 07:37 06/29/17 07:37 Oxygen Delivery Method Room Air Weight: 89.3 kg Body Mass Index (BMI) 28.2 Intake and Output for Last 24 Hours 06/27/17 06/28/17 06/29/17 23:59 23:59 23:59 Intake Total 2873 / 2873 3392 / 3392 1228 / 1228 Output Total 3525 / 3525 2250 / 2250 1500 / 1500 Balance -652 / -652 1142 / 1142 -272 / -272 Microbiology Past 72 Hours 06/26/17 11:39 Gram Stain - Final Csf, Spinal Fluid CSF Culture - Final Culture exhibits no growth. 06/25/17 19:10 Blood Culture - Preliminary Blood Culture (Wb) - Right Hand No growth in 48 hours. 06/25/17 20:49 Blood Culture - Preliminary Blood Culture (Wb) - Right Hand No growth in 48 hours. 06/25/17 18:20 Urine Culture - Final Urine, Midstream Culture exhibits no growth. Laboratory Tests Past 24 Hrs 06/29/17 06/29/17 05:00 05:00 WBC 12.4 H RBC 5.32 Hgb 14.6 Hct 43.8 MCV 82.3 MCH 27.4 MCHC 33.3 RDW 14.3 RDW Differential 43.1 Plt Count 326 MPV 10.7 Sodium 136 Potassium 4.1 Chloride 103 Carbon Dioxide 25.0 Anion Gap 8 BUN 11 Creatinine 0.97 Estim Creat Clear Calc 67.94 Est GFR (MDRD) Af Amer 97 Est GFR (MDRD) Non-Af 80 BUN/Creatinine Ratio 11.3 Glucose 160 H Calcium 8.6 POC Glucose 06/29/17 06/28/17 06/28/17 06:37 20:51 17:02 POC Glucose 181 H 171 H 151 H 06/28/17 12:25 POC Glucose 164 H Route of nutrition/ use of supplements: [] Nutritional Intake: [] IV Site: [] Morales Catheter: [] - Assessment/Plan Antibiotics: [] Assessment/Plan: [] Active and Suspected Problems Mental status change (Acute) Confusion (Acute) Aseptic meningitis with headache, neck pain, and confusion - no focal neuro findings. Mental status much improved. CSF shows wbc around 160 with 96% lymphs. Cont acyclovir while HSV pcr is pending. If he is discharged prior to the results being available, would send on po acyclovir for 7 more days of therapy. will follow, d/w primary team.
[2017-06-29 11:31] LABS: Bedside Glucose 233 mg/dL (70-110)
--- NOTE | 2017-06-29 11:53 | CASEMGMT ---
Social Work Note Call from the pt's , Adriana, stating that after review her first choice is [facility] and her second choice is [facility]. Adriana inquires when the pt would be discharging and inform that he is medically stable and if a facility can accept today the pt will discharge this date. Understanding expressed. Placed call to [facility] to check on bed availability. Spoke with Apurva and she states they have beds available. Faxed initial referral for review. Also placed call to [facility] and left a vm with Maude inquiring about bed availability and notifying on incoming referral and that pt was ready for discharge this date.SW to continue to follow and assist with discharge planning. Plan: SNF pending acceptance. MARÍA Boland
[2017-06-29] MEDS: 0.9% Normal Saline 1,000 ML 75 ML IV (12:55)
[2017-06-29 14:56] LABS: Pathologist Review Reviewed
--- NOTE | 2017-06-29 15:20 | CASEMGMT ---
Social Work Note Call back from Apurva at [facility] stating that they were able to accept this date. Paged physician to notify that pt has an accepting facility. Placed call to the pt's to update. Will continue to follow and assist with discharge planning. Plan: [facility] for rehabilitation. MARÍA BolandW
--- NOTE | 2017-06-29 15:38 | CASEMGMT ---
Social Work Note Face to face with the pt and his , Adriana. Discuss discharge plan, and both are in agreement. Would like transport setup. Informed that SW is awaiting physician's discharge instructions and once completed will setup transport and notify of time. SW to continue to follow and assist with discharge planning. Diamante Jenkins, ALCOHOL LAW ENFORCEMENT AGENT DIESEL TRAILER MECHANIC
--- NOTE | 2017-06-29 15:49 | PCM.TXEXTCAR ---
- Diet 06/25/17 15:50 Diabetic [Diet: Calorie Controlled] Is pt able to select menu?: Yes How many daily calories?: 1800 calorie - Therapies Physical Therapy: Eval and Treat Occupational Therapy: Eval and Treat - Allergies/Procedures Done in Hospital Allergies/Adverse Reactions: Allergies No Known Allergies Allergy (Verified 06/25/17 12:30) - Type of Care/Length of Stay Estimated LOS: Convalescent Care Less Than 30 days Type of Care Needed: Skilled Rehab Potential: Fair Prognosis: Fair - Additional Orders/Day of Discharge H&P will serve as current which was dated: 06/25/17 Day of Discharge: 06/29/17 - Follow Up Care Primary Care Physician: Delano Garcia MD [Primary Care Provider] -
--- NOTE | 2017-06-29 15:54 | DS.PCM_ITS ---
Discharge Date and Diagnosis - Problem List Patient Problems: Active and Suspected Problems Mental status change (Acute) Confusion (Acute) Meningitis (Acute) Date of Admission: 06/25/17 Date of Discharge: 06/29/17 - Primary Discharge Diagnosis Active and Suspected Problems Mental status change (Acute) Confusion (Acute) Meningitis (Acute) - Secondary Discharge Diagnosis Chronic Problems Type 2 diabetes mellitus (Chronic) Hypertension (Chronic) Tobacco abuse (Chronic) Hospital Course and Treatment Summary of Care Provided: This is a 76-year-old male admitted 06/25/17 due to generalized weakness, altered mental status. He has a past medical history of type 2 diabetes mellitus, hypertension, tobacco use. Brain CT shows chronic changes, sinusitis. Chest x- ray shows no acute abnormality. Respiratory panel negative. MRI of brain shows no evidence of acute intracranial bleed, mass or ischemia. Lumbar spine x-ray shows degenerative changes of the spine. Patient underwent lumbar puncture with CSF S analysis showing 162 WBC with 96 lymphocytes. Antibiotics that were initially initiated for possible bacterial meningitis where discontinued. Infectious disease recommended to continue acyclovir p.o. whilst HSV PCR is still pending. And was noted to be significantly deconditioned and underwent physical therapy and they recommended long-term facility. The patient was discharged to a long-term home in a stable condition. Physical exam at the time of discharge; vital signs were stable. He was alert and oriented to time place and person. He did not appear to be any form of distress. S1 and S2 heard no murmur or gallop Lung exam was clear to auscultation with no adventitious sounds. Abdomen was soft nontender with normal bowel sounds. extremity exam did not reveal any edema, palpable pulses bilaterally. Neurologic exam was grossly intact. Discharge Diet: No Restrictions Home Medications: Medications to take at Discharge Amlodipine [Norvasc] 2.5 mg PO DAILY 06/25/17 Insulin Aspart [Novolog Flexpen (BKC)] 6 units SC BIDCM 06/25/17 Insulin Glargine,Hum.rec.anlog [Lantus] 48 unit SQ QHS 06/25/17 Lisinopril/Hydrochlorothiazide [Zestoretic 20-25 mg Tablet] 1 each PO DAILY 06/11 Metformin HCl [Glucophage] 1,000 mg PO BIDCM 06/25/17 Acyclovir [Zovirax] 800 mg PO 5X/DAY 7 Days tablet 06/29/17 Quetiapine Fumarate [Seroquel] 25 mg PO BID tablet 06/29/17 Following Prescrptions Were Given to Patient: Acyclovir [Zovirax] 800 mg PO 5X/DAY 7 Days tablet Primary Care Physician: Delano Garcia MD [Primary Care Provider] - Disposition: Prison facility Patient Condition:: Fair Meaningful Use Info Meaningful Use Diagnoses (Choose all that apply): None applicable Code Visit Inpatient E&M: 22486 Disch Hosp
--- NOTE | 2017-06-29 16:03 | CASEMGMT ---
Social Work Note Convalescent 7000 completed and submitted in the [facility]. Copies on chart and in SNF packet. Discharge instructions, medlist and scripts faxed to SNF. Copies on chart and originals in SNF packet. Transportation setup through [facility] via cot at 17:30. Notified SNF, RN and pt. Plan: [facility] for rehabilitation. Convalescent 7000 submitted in the [facility]. Transport setup through [facility] via cot at 17:30. Diamanet Jenkins, [employer], PERFORMANCE IMPROVEMENT CONSULTANT
[2017-06-29 16:26] LABS: Bedside Glucose 199 mg/dL (70-110)
[2017-07-01 03:07] LABS: Cryptococcus Antigen CSF Negative (Negative); HSV 1 By PCR Negative (Negative)
[2017-07-01 14:53] LABS: CMV by PCR Negative (Negative); Enterovirus By PCR Negative (Negative); HSV 2 By PCR Negative (Negative)
== END 2017-06-29 17:35 | disposition skilled nursing facility (03) | DRG 97 ==
LOC: ED 13:44 → MS3 15:06
PROVIDERS: Internal Medicine; Nurse Practitioner Family; Admitting Provider Internal Medicine; Emergency Provider Emergency Medicine; Family Provider Family Medicine; PCP Family Medicine; Visit Provider Internal Medicine
DX: G03.9 Meningitis, unspecified (principal); G93.40 Encephalopathy, unspecified; E86.0 Dehydration; E11.9 Type 2 diabetes mellitus without complications; E87.1 Hypo-osmolality and hyponatremia; I10 Essential (primary) hypertension; J11.1 Influenza due to unidentified influenza virus with other respiratory manifestations; R26.2 Difficulty in walking, not elsewhere classified; E66.9 Obesity, unspecified; F17.210 Nicotine dependence, cigarettes, uncomplicated; Z79.4 Long term (current) use of insulin; Z79.899 Other long term (current) drug therapy
CPT/HCPCS: 36415; 62270; 70450; 70551; 71045; 71046; 72100; 77003; 80048; 80076; 81001; 82140; 82550; 82607; 82945; 82962; 83605; 83690; 83880; 84157; 84443; 84484; 85025; 85027; 85652; 86140; 86592; 87040; 87070; 87086; 87101; 87205; 87496; 87498; 87529; 87633; 87899; 88108; 88305; 88313; 89050; 89051; 92526; 93005; 93306; 97110; 97116; 97162; 97165; 97530; 97535; 97802; 99282; 99283; 99406; J7030; J7040; J7050; A4216; J0696

== ENCOUNTER 2018-04-26 13:01 | Emergency (ER) | payer MEDICARE, OTHER, SELFPAY ==
[2017-06-25 15:20] VITALS: BMI 28.2
[2018-04-26 13:04] VITALS: BP 118/73; PULSE 91; RESP 16; TEMP 37.4; O2SAT 97; BMI 28.8
--- NOTE | 2018-04-26 13:28 | EKG12_ITS ---
Test Reason : ABD PAIN Blood Pressure : / mmHG Vent. Rate : 088 BPM Atrial Rate : 088 BPM P-R Int : 194 ms QRS Dur : 122 ms QT Int : 380 ms P-R-T Axes : -23 -22 015 degrees QTc Int : 459 ms Normal sinus rhythm Right bundle branch block Abnormal ECG Confirmed by CAMI FINNEGAN, JOHN ([id number]), school photograph editor KOTA WANG ([id number] on 04/29/2018 1:29:08 PM Referred By: ОЛЬГА Confirmed By:JOHN ALMANZA MD
--- NOTE | 2018-04-26 13:28 | CT_ITS ---
STUDY: CT ABDOMEN AND PELVIS WITHOUT CONTRAST REASON FOR EXAM: Male, 77 years old. Abdominal pain. RADIATION DOSAGE (If Supplied By Facility): CTDIvol = ( 11.41 ) mGy, DLP = ( 896.73 ) mGycm TECHNIQUE: Transaxial images were obtained from the dome of the diaphragm to the symphysis pubis without oral contrast, and without intravenous contrast. Sagittal and coronal images were reconstructed. Individualized dose optimization techniques were used for this CT. COMPARISON: None. FINDINGS: Mild degree of increased markings at the lung bases suggestive of atelectasis and/or scarring. Coronary artery calcification. Normal liver. There is evidence of gallbladder wall thickening. Small amount of pericholecystic fluid. Increased markings are seen in the fat surrounding the gallbladder fossa suggestive of a acute cholecystitis. This extends into the region of the hepatic flexure. Correlation with ultrasound is recommended. There is a benign calcified granuloma of the spleen. Normal pancreas. Normal bilateral adrenal glands. There is a 2.1 cm x 1.9 cm cyst in the posterior superior aspect of the right kidney as well as a 1.6 cm complex cyst with rim-like calcification in the posterior medial aspect of the right kidney. There is also evidence of a 2.7 cm x 2.1 cm cyst in the lower pole. Incidental note is made of a 2 mm calculus in the lower pole of the right kidney. There is a 2.3 cm x 1.7 cm cyst in the anterior superior aspect of the left kidney. Adjacent to this, there is a 2.9 cm x 2.6 cm left renal cyst. Nonspecific bilateral perinephric stranding. There is a small hiatal hernia. Normal small intestine. Diffuse circumferential wall thickening of the hepatic flexure. The appendix is visualized and appears normal. There is diffuse atherosclerotic calcification of the abdominal aorta, without a demonstrated aneurysm. Normal inferior vena cava. There is borderline retroperitoneal lymphadenopathy with enlarged nodes no greater than 10mm in the short axis diameter. Normal urinary bladder. There is enlargement of the prostate gland. It measures 5.7 cm by 5.2 cm. This causes indentation and protrusion into the base of the bladder. Central prostatic calcifications. Small bilateral inguinal hernias containing fat. There are diffuse degenerative changes of the visualized lumbar spine. CT/Abdomen/Pelvis without Cont IMPRESSION: Inflammatory changes seen in the gallbladder fossa with gallbladder wall thickening and pericholecystic fluid. Correlation with ultrasound is recommended for further evaluation. Diffuse circumferential wall thickening of the hepatic flexure. Electronically Signed: You Erwin MD at 14:46 EST Tel [phone], Service support ,
--- NOTE | 2018-04-26 13:38 | ED.VISSUMM ---
- ER Visit Summary Date of Service: 04/26/18 Chief Complaint: [] Right-sided abdominal pain constipation vomiting generalized weakness History of Present Illness: The patient is a 77 M [] patient and the reports since Thursday the patient's had a vague nonspecific pain to the right side of the abdomen he then developed vomiting and constipation to where he cannot pass any stool of any kind, he is passing normal amounts of urine, he also complains of generalized weakness. Symptoms persisted he came in for evaluation. The reports he had meningitis about a year ago and he had generalized weakness then. He has no history of GI elements colonoscopy 10 years ago unremarkable, appendectomy in the 1950s, every time he eats he has a sense of vomiting Physical Examination: [] 118/83 General, no distress resting comfortably HEENT is generally unremarkable The neck is supple no adenopathy Cardiovascular, regular rate and rhythm Lungs, clear bilateral Abdomen, soft nontender, he has a vague discomfort to the right flank it is not focal his back is unremarkable, there is no rebound guarding organomegaly his exam is unremarkable rectal exam shows very little stool in the vault nontender Extremities, no clubbing cyanosis or edema Neurologic, awake alert answering questions appropriately moving all 4 extremities, his cranial nerves are normal he is moving all 4 extremities he is awake and alert answering questions appropriately with normal mental status Test Results: [] Emergency Department Course and Treatment: [] Given his complaints of abdominal pain vomiting screening labs CT IV fluids there is no signs at this time of any type of a neurologic condition or PHYSICAL DAMAGE 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 Kirk account resolution expert for surgery she asked the patient be admitted to hospitalist, spoke with the hospitalist they are coming to see him for admission, radiology recommended formal ultrasound which is pending which will be checked by the admitting service and consult a services dw with the patient family they understand and agree Treatment Plan: [] Disposition: [] Admit stable Impression: [] Acute cholecystitis This note was generated with sevenload dictation software. It may contain incorrect words, spelling, and punctuation that were not noted in review of the chart prior to signing ED Disposition - Plan for ED Patient: Chief Complaint: Abd Pain Referrals: Delano Garcia MD [Primary Care Provider] -
[2018-04-26] MEDS: Ondansetron 4 MG/2 ML Vial IV (13:47)
[2018-04-26] MEDS: Morphine 4 MG/ML Syringe IV (13:47)
[2018-04-26 14:04] LABS: Absolute Lymphocyte Count 1.19 X10^3/ul (0.83-4.51); Absolute Neutrophil Count 26.4 X10^3/uL (2.0-7.7); Basophil# 0.02 X10^3/uL; Basophil% 0.1 % (0-1); Hematocrit 40.6 % (40-54); Hemoglobin 13.3 g/dl (13.0-16.5); Lymphocyte # 1.19 X10^3/ul (4.0); Mean Corp Hgb Conc 32.8 g/gl (32-36); Mean Corpuscular Hgb 27.4 pg (27.0-32.0); Mean Corpuscular Volume 83.7 fL (80-94); Mean Platelet Vol. 10.2 fl (6.2-12.0); Monocyte# 2.27 X10^3/uL; Monocyte% 7.6 % (0-10); Neutrophil # 26.41 X10^3/uL (2.7-7.7); Platelet Count 334 K/mm3 (150-450); RBC Distribution Width CV 14.6 % (11.6-14.6); RBC Distribution Width SD 44.6 fl (35.1-43.9); Red Blood Count 4.85 M/mm3 (4.6-6.2)
[2018-04-26 14:06] LABS: Differential Indicated SCAN CRITERIA MET; POSITIVE COUNT NO; POSITIVE DIFFERENTIAL YES; POSITIVE MORPHOLOGY NO
[2018-04-26 14:10] LABS: AST(SGOT) 15 U/L (15-37); Alanine Aminotransfer ALT/SGPT 17 U/L (16-61); Albumin, Serum 2.9 g/dL (3.2-5.0); Alkaline Phosphatase 110 U/L (45-117); Anion Gap 11 (5-15); BUN 32 mg/dL (7-18); BUN/Creat Ratio 20.6 RATIO (10-20); Bilirubin, Direct 0.33 mg/dL (0.00-0.30); Calcium,Total 8.7 mg/dL (8.5-10.1); Chloride 99 mmol/L (98-107); Creatinine, Serum 1.55 mg/dL (0.70-1.30); EST Glomerular Filtration Rate 47 mL/min (>60); Est Glom Filt Rate - Afr Amer 56 mL/min (>60); Estimated Creatinine Clearance 41.86 ml/min; Globulin 4.4 g/dL (2.2-4.2); Glucose 177 mg/dL (74-106); Lipase 45 U/L (73-393); Potassium 3.7 mmol/L (3.5-5.1); Protein, Total 7.3 g/dL (6.4-8.2); Sodium Level 134 mmol/L (136-145)
--- NOTE | 2018-04-26 14:10 | ED.RN ---
NOTE LEFT FOR DR ROLON REFERENCE WBC
--- NOTE | 2018-04-26 15:06 | US_ITS ---
STUDY: ABDOMINAL ULTRASOUND - RIGHT UPPER QUADRANT REASON FOR VISIT: Male, 77 years old. Right upper quadrant pain TECHNIQUE: Ultrasound evaluation of the right upper quadrant was performed with real-time and static gillis-scale imaging. TECHNICAL QUALITY: Adequate. COMPARISON: None. FINDINGS: Liver: The liver measures 20.2 cm. There is increased echogenicity consistent with fatty infiltration. The bile ducts are within normal limits. There is hepatic color flow. The direction of portal flow is hepatopetal. There is no demonstrated mass lesion. Gallbladder: Normal distended gallbladder. The gallbladder wall measures 9 mm. There is a negative sonographic Brown's sign. There is pericholecystic fluid. Multiple gallstones and sludge are seen within the gallbladder. Common Bile Duct (C.B.D.): The common bile duct measures 6 mm. Pancreas: Normal size of the head, body and tail of the pancreas. There is increased echogenicity of the pancreas. There is no demonstrated pancreatic mass or cyst. Right Kidney: Normal size of the right kidney. The right kidney measures 13.1 x 5.4 x 5.4 cm. Normal renal cortex. The right cortex measures 1.8 cm. There are 2 right renal cysts measuring 2.1 x 2.6 x 2.4 cm and 1.8 x 1.3 x 1.5 cm. There is a tiny echogenic focus of the lower pole consistent with calculus. There is no right hydronephrosis. US/Gallbladder IMPRESSION: Increased hepatic and pancreatic echogenicity suggestive of fatty infiltration. Hepatomegaly is noted. Multiple gallstones and sludge present within the gallbladder. There is gallbladder wall thickening and pericholecystic fluid. Findings are compatible with cholecystitis. Right nephrolithiasis as well as several small right renal cysts. Electronically Signed: Jt Townsend MD at 16:16 EST , Service support ,
[2018-04-26 15:22] VITALS: RESP 18
--- NOTE | 2018-04-26 15:35 | NURSING ---
DR MCKENNA PAGEAna M
[2018-04-26] MEDS: 0.9% Normal Saline 1,000 ML 999 ML IV (16:19)
--- NOTE | 2018-04-26 16:33 | NURSING ---
311 OBS ABD PAIN, ACUTE CHOLECYSTITIS, ROSALIA KORAM
[2018-04-26 17:02] VITALS: RESP 16
--- NOTE | 2018-04-26 17:19 | PCM.HP.STD ---
History of Present Illness Date of Admission: 04/26/18 Chief Complaint: right upper abdominal pain The patient is a 77 year old M past medical history of hypertension diabetes mellitus. He was admitted through the ED on 04/26/2018 with a complaint of right upper quadrant abdominal pain which have been going on for about 3 days now. Pain was sharp, worsened by eating with no relieving factors. He denied any fever or chills, any chest pain or shortness of breath but had associated vomiting but no diarrhea. Pain got worse and so he decided to come into the ED today. The ED, he was found to have temperature of 99.3 Fahrenheit vitals were otherwise within normal limits. Labs showed sodium of 134 and creatinine of 1.55 with direct bilirubin of 0.33. CBC showed white cell count of 30,000. Abdominal pelvic CT showed inflammatory changes in the gallbladder fossa with gallbladder wall thickening and pericholecystic fluid as well as diffuse circumferential wall thickening of the hepatic flexure. Gallbladder ultrasound showed fatty liver infiltration, normal distended gallbladder with negative sonographic Brown sign and gallbladder wall measuring 9 mm. Showed presence of pericholecystic fluid and multiple gallstones and sludge seen within the gallbladder. He has been admitted to be managed for acute cholecystitis. [] Past Medical History Past Medical History (Chronic Problems): Chronic Problems Tobacco abuse (Chronic) Hypertension (Chronic) Type 2 diabetes mellitus (Chronic) Allergies No Known Allergies Allergy (Verified 04/26/18 13:02) Home Medications: Ambulatory Orders Medication Instructions Recorded Insulin Aspart [Novolog Flexpen 6 units SC BIDCM 06/25/17 ([facility])] RX: Amlodipine [Norvasc] 2.5 mg PO DAILY 06/25/17 RX: Insulin Glargine,Hum.rec.anlog 48 unit SQ QHS 06/25/17 [Lantus] RX: Lisinopril/Hydrochlorothiazide 1 each PO DAILY 06/25/17 [Zestoretic 20-25 mg Tablet] RX: Metformin HCl [Glucophage] 1,000 mg PO BIDCM 06/25/17 RX: Quetiapine Fumarate [Seroquel] 25 mg PO BID tablet 06/29/17 Surgical History: appendectomy Psychiatric History: No pertinent psych hx Smoking Status: Current every day smoker - *Family History Maternal History Items: Cancer Paternal History Items: Diabetes, Stroke Review of Systems Constitutional: Denies: Chills, Fever, Malaise, Weakness, Weight Change, Fatigue Eyes: Denies: Blurred vision HEENT: Denies: Head Aches, Sinus Congestion, Sinus Drainage Cardiovascular: Denies: Chest Pain, Chest Pressure, Chest Tightness, Palpitations Respiratory: Denies: Cough, Pleuritic Pain, Shortness of Breath, Shortness of breath at rest, Shortness of breath upon exertion, Sputum production, Wheezing Gastrointestinal: Reports: Abdominal Pain, Vomiting. Denies: Constipation, Diarrhea, Dyspepsia, Hematemesis, Nausea, Melena Genitourinary: Denies: Dysuria Musculoskeletal: Denies: Joint Pain, Joint Tenderness Skin: Denies: Rash, Wounds Neurological: Denies: Numbness, Tingling, Focal weakness Psychiatric: Denies: Anxiety, Depression, Homicidal Ideations, Suicidal Ideations Hematologic/ Lymphatic: Denies: Easy Bruising, Easy Bleeding VTE Information - Inpt Only VTE Present on Admission: No VTE Pharm Prophylaxis ordered?: Yes - Physical Exam General: Alert, Oriented x3, Cooperative, No apparent distress HEENT: Atraumatic, PERRLA, EOMI, Normocephalic Oral: Dry Mucosa Neck: Supple, No JVD, Negative Carotid Bruits Lungs: Clear to auscultation, Normal air movement, No rhonchi, No wheeze, No rales Cardiovascular: Regular rate, Regular Rhythm, Normal S1, Normal S2, No murmurs Abdomen: Bowel Sounds Present, Soft, Non-Distended, No Hepato-splenomegaly, - - moderate RUQ tenderness, with no guarding or rebound tenderness. Negative Brown's sign Extremities: No clubbing, No cyanosis, No edema, Capillary Refill Less than 3 Seconds Skin: No rashes, No breakdown Musculoskeletal: No Tenderness to Palpation of Joints or Extremities, No Muscle Wasting Lymphatic: No Cervical, Supraclavicular, or Inguinal Adenopathy Neurological: Cranial nerves II-XII grossly intact, Neuro grossly intact, Motor Exam 5/5 strength throughout Psych/Mental Status: Normal Affect, Appropriate, Alert and oriented to time, place, person, mood and affect Vital Signs Temp Pulse Resp BP Pulse Ox 99.3 F H 91 16 118/73 97 04/26/18 13:04 04/26/18 13:04 04/26/18 17:02 04/26/18 13:04 04/26/18 13:04 Oxygen Delivery Method Room Air Weight: 200 lb 9.93 oz Body Mass Index (BMI) 28.8 Laboratory Tests Past 24 Hrs 04/26/18 04/26/18 13:43 13:43 WBC 30.0 H* RBC 4.85 Hgb 13.3 Hct 40.6 MCV 83.7 MCH 27.4 MCHC 32.8 RDW 14.6 RDW Differential 44.6 H Plt Count 334 MPV 10.2 Immature Gran % (Auto) 0.300 Neut % (Auto) 88.0 H Lymph % (Auto) 4.0 L [place] % (Auto) 7.6 Eos % (Auto) 0.0 Baso % (Auto) 0.1 Absolute Neuts (auto) 26.4 H Absolute Lymphs (auto) 1.19 Total Counted Not Reportable Diff Path Review May foll Sodium 134 L Potassium 3.7 Chloride 99 Carbon Dioxide 24.0 Anion Gap 11 BUN 32 H Creatinine 1.55 H Estim Creat Clear Calc 41.86 Est GFR (MDRD) Af Amer 56 L Est GFR (MDRD) Non-Af 47 L BUN/Creatinine Ratio 20.6 H Glucose 177 H Calcium 8.7 Total Bilirubin 0.80 Direct Bilirubin 0.33 H AST 15 ALT 17 Alkaline Phosphatase 110 Troponin I < 0.015 Total Protein 7.3 Albumin 2.9 L Globulin 4.4 H Lipase 45 L Diagnostic Data Abdomen/Pelvis CT 04/26/18 13:28 IMPRESSION: Inflammatory changes seen in the gallbladder fossa with gallbladder wall thickening and pericholecystic fluid. Correlation with ultrasound is recommended for further evaluation. Diffuse circumferential wall thickening of the hepatic flexure. Electronically Signed: You Erwin MD at 14:46 EST Tel [phone], Service support , Gallbladder Ultrasound 04/26/18 15:06 IMPRESSION: Increased hepatic and pancreatic echogenicity suggestive of fatty infiltration. Hepatomegaly is noted. Multiple gallstones and sludge present within the gallbladder. There is gallbladder wall thickening and pericholecystic fluid. Findings are compatible with cholecystitis. Right nephrolithiasis as well as several small right renal cysts. Electronically Signed: Jt Townsend MD at 16:16 EST , Service support , Assessment/Plan All Active Problems Meningitis (Acute) Confusion (Acute) Mental status change (Acute) 77-year-old male admitted with a complaint of right upper quadrant pain for 3 days 1. Sepsis due to Acute cholecystitis SIRS criteria is 2/4 (fever and leucocytosis), wtih gall bladder as source of infection Abdominopelvic CT showed evidence of acute cholecystitis and gallbladder ultrasound showed pericholecystic fluid and gallbladder sludge as well as multiple gallstones with thickening of gallbladder wall. Admit to [facility]. White cell count is 30. Total biliarubin is 0.8, with direct bilirubin of 0.33. Lipase is only 45 Was started on IV Zosyn in the ED. Will continue. Will give IV fluid normal saline 125 cc/h. Keep n.p.o. for now. General surgery consult with Dr. Kirk. She was spoken to by the ED doctor. 2. Hyponatremia: Hypovolemic hypotonic hyponatremia. His sodium is 134. Lips are very dry. Will hydrate with IV fluids and monitor. 3. AK I: Creatinine is 1.55 with baseline being less than 1. Likely prerenal due to dehydration from decreased intake. Hydrate and monitor. 4. Per attention: Controlled. On amlodipine. Will hold lisinopril in light of ROSALIA. Continue hydrochlorothiazide 25 mg daily. 5. Diabetes: We will hold home diabetes medication and start insulin sliding scale. Accu-Cheks every 6 on account of patient being n.p.o. 6. DVT prophylaxis: Heparin CODE STATUS: Patient counseled extensively about different types of CODE STATUS including full code, DNR CCA and DNR CCA. Patient elects to be full code. Total [id number] time 16 minutes. 6:57pm Decision was made by surgeon to transfer patient to tertiary [facility] subsequently as she wanted him to get a biliary stent; there was however nobody to do the procedure at that particular time. Code Visit Inpatient E&M: 72268 Init Hosp L3 Procedures: 37720 Advncd Care Plan 30 Min
--- NOTE | 2018-04-26 17:23 | HP.PCM_ITS ---
History of Present Illness Date of Admission: 04/26/18 Chief Complaint: right upper abdominal pain The patient is a 77 year old M past medical history of hypertension diabetes mellitus. He was admitted through the ED on 04/26/2018 with a complaint of right upper quadrant abdominal pain which have been going on for about 3 days now. Pain was sharp, worsened by eating with no relieving factors. He denied any fever or chills, any chest pain or shortness of breath but had associated vomiting but no diarrhea. Pain got worse and so he decided to come into the ED today. The ED, he was found to have temperature of 99.3 Fahrenheit vitals were otherwise within normal limits. Labs showed sodium of 134 and creatinine of 1.55 with direct bilirubin of 0.33. CBC showed white cell count of 30,000. Abdominal pelvic CT showed inflammatory changes in the gallbladder fossa with gallbladder wall thickening and pericholecystic fluid as well as diffuse circumferential wall thickening of the hepatic flexure. Gallbladder ultrasound showed fatty liver infiltration, normal distended gallbladder with negative sono graphic Brown sign and gallbladder wall measuring 9 mm. Showed presence of pericholecystic fluid and multiple gallstones and sludge seen within the gallbladder. He has been admitted to be managed for acute cholecystitis. [] Past Medical History Past Medical History (Chronic Problems): Chronic Problems Tobacco abuse (Chronic) Hypertension (Chronic) Type 2 diabetes mellitus (Chronic) Allergies No Known Allergies Allergy (Verified 04/26/18 13:02) Home Medications: Ambulatory Orders Medication Instructions Recorded Insulin Aspart [Novolog Flexpen 6 units SC BIDCM 06/25/17 ([facility])] RX: Amlodipine [Norvasc] 2.5 mg PO DAILY 06/25/17 RX: Insulin Glargine,Hum.rec.anlog 48 unit SQ QHS 06/25/17 [Lantus] RX: Lisinopril/Hydrochlorothiazide 1 each PO DAILY 06/25/17 [Zestoretic 20-25 mg Tablet] RX: Metformin HCl [Glucophage] 1,000 mg PO BIDCM 06/25/17 RX: Quetiapine Fumarate [Seroquel] 25 mg PO BID tablet 06/29/17 Surgical History: appendectomy Psychiatric History: No pertinent psych hx Smoking Status: Current every day smoker - *Family History Maternal History Items: Cancer Paternal History Items: Diabetes, Stroke Review of Systems Constitutional: Denies: Chills, Fever, Malaise, Weakness, Weight Change, Fatigue Eyes: Denies: Blurred vision HEENT: Denies: Head Aches, Sinus Congestion, Sinus Drainage Cardiovascular: Denies: Chest Pain, Chest Pressure, Chest Tightness, P alpitations Respiratory: Denies: Cough, Pleuritic Pain, Shortness of Breath, Shortness of breath at rest, Shortness of breath upon exertion, Sputum production, Wheezing Gastrointestinal: Reports: Abdominal Pain, Vomiting. Denies: Constipation, Diarrhea, Dyspepsia, Hematemesis, Nausea, Melena Genitourinary: Denies: Dysuria Musculoskeletal: Denies: Joint Pain, Joint Tenderness Skin: Denies: Rash, Wounds Neurological: Denies: Numbness, Tingling, Focal weakness Psychiatric: Denies: Anxiety, Depression, Homicidal Ideations, Suicidal Ideations Hematologic/ Lymphatic: Denies: Easy Bruising, Easy Bleeding VTE Information - Inpt Only VTE Present on Admission: No VTE Pharm Prophylaxis ordered?: Yes - Physical Exam General: Alert, Oriented x3, Cooperative, No apparent distress HEENT: Atraumatic, PERRLA, EOMI, Normocephalic Oral: Dry Mucosa Neck: Supple, No JVD, Negative Carotid Bruits Lungs: Clear to auscultation, Normal air movement, No rhonchi, No wheeze, No rales Cardiovascular: Regular rate, Regular Rhythm, Normal S1, Normal S2, No murmurs Abdomen: Bowel Sounds Present, Soft, Non-Distended, No Hepato-splenomegaly, - - moderate RUQ tenderness, with no guarding or rebound tenderness. Negative Brown's sign Extremities: No clubbing, No cyanosis, No edema, Capillary Refill Less than 3 Seconds Skin: No rashes, No breakdown Musculoskeletal: No Tenderness to Palpation of Joints or Extremities, No Muscle Wasting Lymphatic: No Cervical, Supraclavicular, or Inguinal Adenopathy Neurological: Cranial nerves II-XII grossly intact, Neuro grossly intact, Motor Exam 5/5 strength throughout Psych/Mental Status: Normal Affect, Appropriate, Alert and oriented to time, place, person, mood and affect Vital Signs Temp Pulse Resp BP Pulse Ox 99.3 F H 91 16 118/73 97 04/26/18 13:04 04/26/18 13:04 04/26/18 17:02 04/26/18 13:04 04/26/18 13:04 Oxygen Delivery Method Room Air Weight: 200 lb 9.93 oz Body Mass Index (BMI) 28.8 Laboratory Tests Past 24 Hrs 04/26/18 04/26/18 13:43 13:43 WBC 30.0 H* RBC 4.85 Hgb 13.3 Hct 40.6 MCV 83.7 MCH 27.4 MCHC 32.8 RDW 14.6 RDW Differential 44.6 H Plt Count 334 MPV 10.2 Immature Gran % (Auto) 0.300 Neut % (Auto) 88.0 H Lymph % (Auto) 4.0 L [place] % (Auto) 7.6 Eos % (Auto) 0.0 Baso % (Auto) 0.1 Absolute Neuts (auto) 26.4 H Absolute Lymphs (auto) 1.19 Total Counted Not Reportable Diff Path Review May foll Sodium 134 L Potassium 3.7 Chloride 99 Carbon Dioxide 24.0 Anion Gap 11 BUN 32 H Creatinine 1.55 H Estim Creat Clear Calc 41.86 Est GFR (MDRD) Af Amer 56 L Est GFR (MDRD) Non-Af 47 L BUN/Creatinine Ratio 20.6 H Glucose 177 H Calcium 8.7 Total Bilirubin 0.80 Direct Bilirubin 0.33 H AST 15 ALT 17 Alkaline Phosphatase 110 Troponin I < 0.015 Total Protein 7.3 Albumin 2.9 L Globulin 4.4 H Lipase 45 L Diagnostic Data Abdomen/Pelvis CT 04/26/18 13:28 IMPRESSION: Inflammatory changes seen in the gallbladder fossa with gallbladder wall thickening and pericholecystic fluid. Correlation with ultrasound is recommended for further evaluation. Diffuse circumferential wall thickening of the hepatic flexure. Electronically Signed: You Erwin MD at 14:46 EST Tel [phone], Service support , Gallbladder Ultrasound 04/26/18 15:06 IMPRESSION: Increased hepatic and pancreatic echogenicity suggestive of fatty infiltration. Hepatomegaly is noted. Multiple gallstones and sludge present within the gallbladder. There is gallbladder wall thickening and pericholecystic fluid. Findings are compatible with cholecystitis. Right nephrolithiasis as well as several small right renal cysts. Electronically Signed: Jt Townsend MD at 16:16 EST , Service support , Assessment/Plan All Active Problems Meningitis (Acute) Confusion (Acute) Mental status change (Acute) 77-year-old male admitted with a complaint of right upper quadrant pain for 3 days 1. Sepsis due to Acute cholecystitis * SIRS criteria is 2/4 (fever and leucocytosis), wtih gall bladder as source of infection * Abdominopelvic CT showed evidence of acute cholecystitis and gallbladder ultrasound showed pericholecystic fluid and gallbladder sludge as well as multiple gallstones with thickening of gallbladder wall. * Admit to [facility]. * White cell count is 30. Total biliarubin is 0.8, with direct bilirubin of 0.33. Lipase is only 45 * Was started on IV Zosyn in the ED. Will continue. * Will give IV fluid normal saline 125 cc/h. * Keep n.p.o. for now. General surgery consult with Dr. Kirk. She was spoken to by the ED doctor. * 2. Hyponatremia: Hypovolemic hypotonic hyponatremia. His sodium is 134. Lips are very dry. Will hydrate with IV fluids and monitor. 3. AK I: Creatinine is 1.55 with baseline being less than 1. Likely prerenal due to dehydration from decreased intake. Hydrate and monitor. 4. Per attention: Controlled. On amlodipine. Will hold lisinopril in light of ROSALIA. Continue hydrochlorothiazide 25 mg daily. 5. Diabetes: We will hold home diabetes medication and start insulin sliding scale. Accu-Cheks every 6 on account of patient being n.p.o. 6. DVT prophylaxis: Heparin CODE STATUS: Patient counseled extensively about different types of CODE STATUS including full code, DNR CCA and DNR CCA. Patient elects to be full code. Total [id number] time 16 minutes. 6:57pm Decision was made by surgeon to transfer patient to tertiary [facility] subsequently as she wanted him to get a biliary stent; there was however nobody to do the procedure at that particular time. * Code Visit Inpatient E&M: 02169 Init Hosp L3 Procedures: 06217 Advncd Care Plan 30 Min
--- NOTE | 2018-04-26 18:03 | NURSING ---
CALLED REHANA CARDENAS
[2018-04-26 19:08] VITALS: BP 121/49; PULSE 81; RESP 18; O2SAT 95
[2018-04-26 19:42] VITALS: BP 129/53; PULSE 87; RESP 16; O2SAT 99
[2018-04-27 15:04] LABS: Pathologist Review Reviewed
== END 2018-04-26 19:43 | disposition short-term general hospital (02) ==
LOC: ED 14:00 → MS3 16:25 → ED 19:46
PROVIDERS: Emergency Provider Emergency Medicine; Family Provider Family Medicine; PCP Family Medicine
DX: K81.0 Acute cholecystitis (principal); R11.10 Vomiting, unspecified; K59.00 Constipation, unspecified; E11.9 Type 2 diabetes mellitus without complications; Z79.4 Long term (current) use of insulin; Z79.899 Other long term (current) drug therapy; Z86.61 Personal history of infections of the central nervous system
CPT/HCPCS: 74176; 76705; 80048; 80076; 83690; 84484; 85025; 93005; 96361; 96365; 96375; 99284; J7030; J7040; J7050; A4216; J2405

== ENCOUNTER 2018-06-09 15:14 | Emergency (ER) | payer MEDICARE, OTHER, SELFPAY ==
[2018-06-09 15:15] VITALS: BP 115/58; PULSE 75; RESP 16; TEMP 36.2; O2SAT 99; BMI 25.8
--- NOTE | 2018-06-09 16:12 | CT_ITS ---
STUDY: CT ABDOMEN AND PELVIS WITHOUT CONTRAST REASON FOR EXAM: Male, 77 years old. Right lower quadrant pain, leukocytosis, recent cholecystectomy. RADIATION DOSAGE (If Supplied By Facility): CTDIvol = ( 10.93 ) mGy, DLP = ( 592.5 ) mGycm TECHNIQUE: Transaxial images were obtained from the dome of the diaphragm to the symphysis pubis without oral contrast, and without intravenous contrast. Sagittal and coronal images were reconstructed. Individualized dose optimization techniques were used for this CT. COMPARISON: CT abdomen and pelvis 04/26/2018. Ultrasound gallbladder 04/26/2018. FINDINGS: Body wall soft tissues: No acute process. Osseous structures: No acute process. Inferior chest: Somewhat hyperlucent lung bases suggesting underlying COPD/emphysema. Normal distal esophagus. Minimal sliding hiatal hernia paraesophageal. No significant cardiomegaly. No pericardial effusion. Three-vessel coronary calcifications. Aortic valve annulus calcifications. Hepatobiliary: Normal appearance of the liver. Gallbladder surgically absent. Color fossa exhibits no acute abnormality. Nondilated intrahepatic and extrahepatic biliary tree. Pancreas: Moderate pancreatic atrophy. No ductal ectasia or suspicious focal lesion. Spleen: Punctate calcifications consistent with old granulomas disease. Adrenal glands: Normal. Urogenital: Grossly benign renal cysts are unchanged compared to prior imaging, incompletely characterized on noncontrast CT scan. Solitary punctate nonobstructing calyceal calculus of the right kidney. No hydronephrosis or hydroureter. Slender calcified material layers within the posterior aspect of the urinary bladder, along the wall. Whether this represents wall calcification, or layering dense debris is unknown. The prostate is enlarged, measuring up to 6.7 cm craniocaudal, 5.5 cm anterior-posterior, 6.1 cm transverse. Circumscribed margins. Symmetric and unremarkable appearance of the seminal vesicles. Pelvic floor and sidewalls and retroperitoneum: There are numerous tiny lymph nodes within the retroperitoneum periaortic, none pathologically enlarged. Vasculature: Moderate aortoiliac atherosclerotic calcifications. Stomach: No acute process. Small bowel and mesentery: The duodenum and jejunum are nondilated. There is gradual increasing dilatation of the ileum, proximal ileum to terminal ileum, terminating at the ileocecal valve, with a greatest diameter of 4.2 cm. Diffuse mild thickening of wall. Slight induration and hyperemia in the adjacent mesentery. Scattered air-fluid levels. There are numerous tiny lymph nodes within the small bowel mesentery not pathologically enlarged acutely inflamed. Large bowel: The appendix is not seen. There is mild circumferential thickening of the wall the cecum. Prominent circumferential irregular thickening of the wall of the ascending colon and proximal flexure in a pattern suggesting malignancy, associated with numerous tiny lymph nodes in the cecal mesentery in the mesentery adjacent to the ascending colon. The suspected malignancy spans a segment measuring approximately 6.7 cm. The remainder of the large bowel is unremarkable. Normal rectum. Similar features of the ascending colon and proximal hepatic flexure were seen on the prior study of 04/26/2018, but with features at that time suggesting vicarious inflammation of the bowel wall adjacent to a prominently inflamed gallbladder. With persistent abnormality of the bowel wall in the absence of inflammation, malignancy must be suspected. Free fluid or free air: None. CT/Abdomen/Pelvis without Cont IMPRESSION: 1. Diffuse dilatation and mild wall thickening of the ileum, terminating at the ileocecal valve. The ileocecal valve itself appears normal. The appearance suggests acute enteritis rather than mechanical obstruction. 2. However, the cecum and proximal ascending colon are now somewhat dilated, probably filled with gas and a small amount of fluid, the dilatation terminating at the segment of suspected malignancy of the distal ascending colon and proximal hepatic flexure. It is possible that the small bowel is dilated in response to obstruction of the colon lumen. This does not however explain the mild circumferential thickening of wall the ileum and slight induration in the mesenteric fat, favoring enteritis. Leukocytosis also favors enteritis. 3. Irregular and prominent abnormal thickening of the wall of the distal ascending colon and proximal hepatic flexure is persistent even in the absence of the inflammation that was present adjacent to the segment of large bowel at the time of acute cholecystitis. Therefore, this segment must be regarded with significant suspicion for malignancy. Follow-up colonoscopy is suggested. Electronically Signed: Piero Baltazar MD at 16:56 EST Tel , Service support ,
[2018-06-09] MEDS: 0.9% Normal Saline 1,000 ML 125 ML IV (16:27)
--- NOTE | 2018-06-09 16:27 | ED.VIS.GEN ---
History of Present Illness Chief Complaint: Abd Pain Informant: Patient Onset: Weeks - 3 Context: Gradual Onset Timing: Continuous - mild soreness, Intermittent - and brief sharp pains in same location Quality: sore, sharp Location: RLQ. nonmigrating, nonradiating. Current Severity: Moderate Maximum Severity: Moderate Worsened by: movement, lying on right side Relieved by: nothing Associated Symptoms: none. no fevers, n/v/d, BRBPR, melena Narrative: Patient had a cholecystectomy about 5 weeks ago, about 1 week afterwards he developed this discomfort that has been persistent ever since, he states it is not worsening. He has no associated symptoms, he did have some diarrhea couple weeks ago but that resolved, the pain is been persistent. He does not get better after having a bowel movement or urinating. No urinary symptoms. Had prior appendectomy remotely, as well as a herniorrhaphy. He is having normal bowel movements now, he states. He had not been seen for this discomfort yet until today, when he had a routine unrelated visit with his PCP, and he had labs drawn several days ago in preparation for this visit, they show a significant leukocytosis at 19.7. Just prior to his cholecystectomy his white blood count was 26.6, but went down to 11 after that. Given this and his abdominal discomfort he was sent to the ER for further evaluation and CT scan. - Past Medical History (1) Hypertension Status: Chronic (2) Type 2 diabetes mellitus Status: Chronic Past Medical History - Allergies and Home Meds Allergies/Adverse Reactions: Allergies No Known Allergies Allergy (Verified 04/26/18 13:02) Primary Care Physician: Delano Garcia MD [Primary Care Provider] - Surgical History: appendectomy, cholecystectomy, herniorrhaphy Smoking Status: Current every day smoker - Family History Maternal Family History: Reports: Cancer Paternal Family History: Reports: Diabetes, Stroke Review of Systems General: Denies: Chills, Fever, Sweats Eyes: Denies: Visual changes - bilaterally, Diplopia ENT: Denies: Rhinorrhea, Sore throat Cardiovascular: Denies: Chest pain, Palpitations Respiratory: Denies: Dyspnea, Cough, Dyspnea on exertion Gastrointestinal: Reports: Abdominal pain. Denies: Nausea, Vomiting, Diarrhea, Melena, Hematochezia Genitourinary: Denies: Dysuria, Hematuria, Frequency Musculoskeletal: Denies: Neck pain, Back pain, Swelling, Extremity Pain Skin: Denies: Rash, Abscess Neurological: Denies: Headache, Weakness, Numbness Psych: Denies: Depression, Suicidal thoughts Allergy: Denies: Swelling of the mouth, Swelling of the tongue Physical Exam Vital Signs/Narrative: Vital Signs Temp Pulse Resp BP Pulse Ox 06/09/18 15:15 97.2 F L 75 16 115/58 L 99 Inital Vital Signs reviewed: Yes General: Well nourished, Well developed Head: Normocephalic, Atraumatic Eyes: Perrl, EOMI ENT: Moist mucous membranes, No rhinorrhea Neck: Supple, Nontender Cardiovascular: Regular rate, Regular rhythm, No murmurs Respiratory: No distress, CTA bilaterally, Chest nontender Abdomen: Soft, Nondistended, Normal bowel sounds, Tender - RLQ into mid-right abd; otherwise, NT.. Negative for: Guarding, Rebound tenderness, Mass Back: Nontender, Normal Inspection. Negative for: CVA tenderness Extremities: Nontender, No edema Skin: Normal color, No rash Neurological: Alert, Oriented x3, Cranial nerves II-XII grossly intact, Normal Strength, Normal Sensation Psychological: Normal affect ED Disposition - Plan for ED Patient: Disposition: Home or Assisted Living Chief Complaint: Abd Pain Diagnosis: RLQ abdominal pain, Colonic mass Instructions: ED Abdominal Pain Unkn Cause Referrals: Delano Garcia MD [Primary Care Provider] - As soon as possible () Beto Lucia MD [STAFF PHYSICIAN] - As soon as possible (but to be seen after your CT) Additional Instructions: Patient has a leukocytosis but a CT that is concerning for possible colonic obstruction due to mass. There are signs of distention proximal to this, and into the ileum but some of the CT findings are more consistent with enteritis. Clinically, he does not have enteritis or obstruction symptoms. He is having good bowel movements, eating and drinking normally. He declined analgesics for pain on multiple offers. He does not want to be admitted to the hospital. I discussed the mass on CT, he wants to be discharged home and does not want to stay in the hospital. I discussed with Dr. Lucia who was on for surgery who states he would be happy to follow-up with the patient but requested an oral contrasted CT to be done as an outpatient first. It was offered here but the patient wants to leave. Will discuss with the physician on-call for Dr. Garcia as well.
[2018-06-09 16:34] LABS: Absolute Lymphocyte Count 2.04 X10^3/ul (0.83-4.51); Basophil# 0.02 X10^3/uL; Basophil% 0.2 % (0-1); Eosinophil# 0.09 X10^3/uL; Eosinophils% 0.7 % (0-5); Hematocrit 39.2 % (40-54); Hemoglobin 12.7 g/dl (13.0-16.5); Lymphocyte # 2.04 X10^3/ul (4.0); Lymphocyte % 15.6 % (19-41); Mean Corp Hgb Conc 32.4 g/gl (32-36); Mean Corpuscular Hgb 27.2 pg (27.0-32.0); Mean Corpuscular Volume 83.9 fL (80-94); Mean Platelet Vol. 9.8 fl (6.2-12.0); Monocyte# 0.87 X10^3/uL; Monocyte% 6.7 % (0-10); Neutrophil % 76.6 % (47-70); Platelet Count 349 K/mm3 (150-450); RBC Distribution Width CV 14.8 % (11.6-14.6); RBC Distribution Width SD 45.9 fl (35.1-43.9); Red Blood Count 4.67 M/mm3 (4.6-6.2); White Blood Count 13.1 K/mm3 (4.4-11.0)
[2018-06-09 16:45] LABS: POSITIVE COUNT NO; POSITIVE DIFFERENTIAL NO; POSITIVE MORPHOLOGY NO
[2018-06-09 16:48] LABS: AST(SGOT) 10 U/L (15-37); Alanine Aminotransfer ALT/SGPT 15 U/L (16-61); Albumin, Serum 3.5 g/dL (3.2-5.0); Alkaline Phosphatase 95 U/L (45-117); Anion Gap 8 (5-15); BUN 17 mg/dL (7-18); Calcium,Total 8.8 mg/dL (8.5-10.1); Chloride 101 mmol/L (98-107); Creatinine, Serum 1.06 mg/dL (0.70-1.30); EST Glomerular Filtration Rate 72 mL/min (>60); Est Glom Filt Rate - Afr Amer 87 mL/min (>60); Estimated Creatinine Clearance 61.22 ml/min; Globulin 3.4 g/dL (2.2-4.2); Glucose 124 mg/dL (74-106); Potassium 3.9 mmol/L (3.5-5.1); Protein, Total 6.9 g/dL (6.4-8.2); Sodium Level 135 mmol/L (136-145)
[2018-06-09 17:29] LABS: Red Blood Cells-Urine 0 SEEN /hpf (0-5); Squamous Epithelial Cells - UA 0 SEEN /hpf (0-5); White Blood Cells 0 SEEN /hpf (0-5)
[2018-06-09 17:30] LABS: Color, Urine Yellow (Yellow); Glucose, Dipstick Normal (Normal); Ketone-Dipstick 5 mg/dl (Negative); Leukocyte Esterase-Dipstick Negative /ul (Negative); Nitrite-Dipstick Negative (Negative); Occult Blood-Urine Negative /ul (Negative); Protein-Dipstick Negative (Negative); Urine Bilirubin Dipstick Negative (Negative); Urine Clarity Clear (Clear); Urine Urobilinogen Normal (Normal)
[2018-06-09 17:49] LABS: Bacteria RARE /hpf (None Seen); Mucous, Urine 1+ /hpf (<or=2+)
[2018-06-09 18:13] VITALS: BP 141/69; RESP 18
[2018-06-09 19:35] VITALS: BP 133/56; PULSE 69; O2SAT 100
--- OUTSIDE RECORDS SUMMARY | 2018-08-14 16:36 | XMS RPT_ITS ---
:1940 Author Organization OHIP Support Name Relationship Address Phone CLARISA OLIVIER Unavailable [address] [place] [address] ARLETH OLIVIER Unavailable Unavailable + [place] [address] R Unavailable Unavailable Unavailable OLIVIER, CLARISA Unavailable [address] [place] [address] R Unavailable Unavailable Unavailable OLIVIER, CLARISA Unavailable [address] [place] [address] R Unavailable Unavailable Unavailable OLIVIER, CLARISA Unavailable [address] [place] [address] R Unavailable Unavailable Unavailable OLIVIER, CLARISA Unavailable [address] [place] [address] R Unavailable Unavailable Unavailable OLIVIER, CLARISA Unavailable [address] [place] [address] R Unavailable Unavailable Unavailable OLIVIER, CLARISA Unavailable [address] [place] [address] R Unavailable Unavailable Unavailable OLIVIER, CLARISA Unavailable [address] [place] [address] R Unavailable Unavailable Unavailable OLIVIER, CLARISA Unavailable [address] [place] [address] R Unavailable Unavailable Unavailable OLIVIER, CLARISA Unavailable [address] [place] [address] R Unavailable Unavailable Unavailable OLIVIER, CLARISA Unavailable [address] [place] [address] R Unavailable Unavailable Unavailable OLIVIER, CLARISA Unavailable [address] [place] [address] R Unavailable Unavailable Unavailable OLIVIERAMISHE Unavailable [address] [place] [address] R Unavailable Unavailable Unavailable OLIVIERLILLYCLARISA Unavailable [address] [place] [address] R Unavailable Unavailable Unavailable Care Team Providers Name Role Phone RAMONE LOVE Attending Unavailable Zeenat, Delano A Referring Unavailable Zeenat, Delano A Primary Care Unavailable RAMONE LOVE Admitting Unavailable Zeenat, Delano A Primary Care Unavailable PRATEEK CABRALES Attending Unavailable MANISHA ATKINS Consulting Unavailable Ban, Dr. Davidson Admitting Unavailable Dr. Stuart Cevallos Attending Unavailable ZEENAT, DELANO A Referring Unavailable ZEENAT, DELANO A Attending Unavailable ZEENAT, DELANO A Referring Unavailable ZEENAT, DELANO A Referring Unavailable ZEENATDELANO A Attending Unavailable ZEENAT, DELANO A Referring Unavailable RAMONE LOVE Admitting Unavailable BINTA CABRALES Attending Unavailable MANISHA ATKINS Consulting Unavailable RAMONE LOVE Attending Unavailable ZEENAT, DELANO A Referring Unavailable Zeenat, Delano Primary Care Unavailable FREDIS DORMAN Attending Unavailable Cebul, Beto Attending Unavailable Cebul, Beto Referring Unavailable Zeenat, Delano Primary Care Unavailable Fabián Sales Attending Unavailable Reggie, Dale Referring Unavailable Koram, Tania Isis Attending Unavailable Zeenat, Delano Primary Care Unavailable Zeenat, Delano Primary Care Unavailable Shavon Parker Attending Unavailable Koram, Tania Isis Admitting Unavailable Reggie, Dale Admitting Unavailable Zeenat, Delano Primary Care Unavailable Farida, Fox S. Consulting Unavailable ELIZABETH Boudreaux Attending Unavailable Beto Valentino Consulting Unavailable Sementi, Odalys Consulting Unavailable Reggie, Dale Admitting Unavailable Sementi, Odalys Attending Unavailable Zeenat, Delano Primary Care Unavailable Farida, Fox S. Consulting Unavailable Beto Valentino Consulting Unavailable Sementi, Odalys Consulting Unavailable Reggie, Dale Admitting Unavailable Sementi, Odalys Attending Unavailable Zeenat, Delano Primary Care Unavailable Farida, Fox S. Consulting Unavailable Chicho, Beto Consulting Unavailable Sementi, Odalys Consulting Unavailable Reggie, Dale Admitting Unavailable Zeenat, Delano Primary Care Unavailable Reggie, Dale Consulting Unavailable Reggie, Dale Attending Unavailable Delano Epperson Primary Care Unavailable Reggie, Dale Admitting Unavailable Farida, Fox S. Consulting Unavailable Forrest Acevedoian Attending Unavailable Beto Valentino Consulting Unavailable Oliveros, Christiano Attending Unavailable Delano Epperson Primary Care Unavailable Cepierol, Beto Admitting Unavailable Cebul, Beto Attending Unavailable Cebul, Beto Referring Unavailable Delano Epperson Primary Care Unavailable Cebul, Beto Attending Unavailable Delano Epperson Referring Unavailable Reggie, Dale Admitting Unavailable ZeenatDelano ardon Primary Care Unavailable Farida, Fox S. 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 Community flexure / Hospital C18.3(ICD-10) Repository 04/28/2018 Admitting Unknown / KERON, Active [place] [facility] diagnosis UNK(Unknown) [facility] Repository 04/28/2018 Active Acute cholecystitis BINTA CABRALES Active [place] / K81.0(ICD-10) Clinic Other [place] Repository 04/26/2018 Active Acquired absence of BINTA CABRALES Active [place] other specified Clinic Other parts of digestive [place] tract / Repository Z90.49(ICD-10) 02/27/2016 Active Type 2 diabetes NA Active [place] mellitus with Clinic Main unspecified [place] diabetic 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) 02/27/2016 Active 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 / Clinic Main Z79.4(ICD-10) [place] Repository 10/05/2015 Active Essential (primary) NA Active [place] hypertension / Clinic Main I10(ICD-10) [place] Repository 06/15/2015 Active 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 / Clinic Main E78.2(ICD-10) [place] Repository 07/16/2017 Unknown 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.9 - Meningitis, Reggie, Dale Active [place] unspecified / Community G03.9(ICD-10) Hospital Repository 06/26/2017 Unknown M79.1 - Myalgia / Oliveros, Christiano Active [place] M79.1(ICD-10) [facility] Repository PROCEDURES PROCEDURES No Procedure Records FoundRESULTS RESULTS BEDSIDE GLUCOSE Collected: 06/19/2018 Status: F Source: [place] 9:32 PM [facility] REPOSITORY TYPE CODE TESTS RESULT OUT OF REFERENCE UNITS RANGE LAB L501.080 70-110 mg/dL High BEDSIDE GLU 146 Result Comment: MANAGEMENT OF PATIENT CARE PER NURSING PROTOCOL Performed By: #### L501.080 #### [facility] Point of Care [address] [place] [address] BEDSIDE GLUCOSE Collected: 06/19/2018 Status: F Source: [place] 4:50 PM [facility] REPOSITORY TYPE CODE TESTS RESULT OUT OF REFERENCE UNITS RANGE LAB L501.080 70-110 mg/dL High BEDSIDE GLU 114 Result Comment: MANAGEMENT OF PATIENT CARE PER NURSING PROTOCOL Performed By: #### L501.080 #### [facility] Point of Care [address] [place] [address] BEDSIDE GLUCOSE Collected: 06/19/2018 Status: F Source: [place] 11:58 AM [facility] REPOSITORY TYPE CODE TESTS RESULT OUT OF RANGE REFERENCE UNITS LAB L501.080 70-110 mg/dL Normal BEDSIDE GLU 104 Result Comment: MANAGEMENT OF PATIENT CARE PER NURSING PROTOCOL Performed By: #### L501.080 #### [facility] Point of Care [address] [place] [address] BEDSIDE GLUCOSE Collected: 06/19/2018 Status: F Source: [place] 6:53 AM [facility] REPOSITORY TYPE CODE TESTS RESULT OUT OF REFERENCE UNITS RANGE LAB L501.080 70-110 mg/dL High BEDSIDE GLU 123 Result Comment: MANAGEMENT OF PATIENT CARE PER NURSING PROTOCOL Performed By: #### L501.080 #### [facility] Point of Care [address] [place] [address] CBC-COMPLETE BLOOD CNT Collected: 06/19/2018 Status: F Source: [place] NO DIFF 6:48 AM [facility] REPOSITORY TYPE CODE TESTS RESULT OUT OF RANGE REFERENCE UNITS LAB L100.1000 4.4-11.0 K/mm3 Normal WBC 8.8 LAB L100.1200 4.6-6.2 M/mm3 Low RBC 4.36 LAB L100.1300 13.0-16.5 g/dl Low HGB 12.0 LAB L100.1400 40-54 % Low HCT 36.6 LAB L100.1500 80-94 fL Normal MCV 83.9 LAB L100.1600 27.0-32.0 pg Normal MCH 27.5 LAB L100.1700 32-36 g/gl Normal MCHC 32.8 LAB L100.1810 11.6-14.6 % High RDW CV 15.0 LAB L100.1820 35.1-43.9 fl High RDW SD 46.1 LAB L100.1900 150-450 K/mm3 Normal PLT 283 LAB L100.2000 6.2-12.0 fl Normal MPV 9.8 Performed By: #### L100.0500 #### [facility] [address] [place], [address] BASIC METABOLIC Collected: 06/19/2018 Status: F Source: [facility] PROFILE (BMP) 6:48 AM [facility] REPOSITORY TYPE CODE TESTS RESULT OUT OF RANGE REFERENCE UNITS LAB L501.0100 74-106 mg/dL High GLU 120 Result Comment: Fasting Glucose result from 100 to 125 mg/dL suggests IMPAIRED HOMEOSTASIS per A.D.A. criteria. Please note revised GLUCOSE reference range effective 2017. LAB L501.1000 7-18 mg/dL Normal BUN 9 LAB L501.1100 0.70-1.30 mg/dL Normal CREAT,SERUM 1.23 Result Comment: The validity of the calculated GFR AND GFRAA in patients over 70 years has not been determined. Clinical correlation is essential. LAB L501.1110 >60 mL/min Normal EST GFR 61 Result Comment: Non- GFR Calc LAB L501.1115 >60 mL/min Normal EST GFR - AA 74 Result Comment: GFR Calc LAB L501.1255 ml/min Normal Estimated CRCL 52.76 LAB L501.1300 10-20 RATIO Low BUN/CRE 7.3 LAB L501.2200 8.5-10 mg/dL Low .1 CA 7.9 LAB L501.5300 136-14 mmol/L Normal 5 NA 137 LAB L501.5600 3.5-5. mmol/L Normal 1 K 3.9 LAB L501.5900 98-107 mmol/L Normal CL 105 LAB L501.6100 21.0-3 mmol/L Normal 2.0 CO2 21.0 LAB L501.6200 5-15 Normal GAP 11 Performed By: #### L500.2500 #### [facility] [address] [place], [address] BEDSIDE GLUCOSE Collected: 06/18/2018 Status: F Source: [place] 10:11 PM [facility] REPOSITORY TYPE CODE TESTS RESULT OUT OF RANGE REFERENCE UNITS LAB L501.080 70-110 mg/dL Normal BEDSIDE GLU 93 Result Comment: MANAGEMENT OF PATIENT CARE PER NURSING PROTOCOL Performed By: #### L501.080 #### [facility] Point of Care [address] [place] [address] BEDSIDE GLUCOSE Collected: 06/18/2018 Status: F Source: [place] 4:17 PM [facility] REPOSITORY TYPE CODE TESTS RESULT OUT OF REFERENCE UNITS RANGE LAB L501.080 70-110 mg/dL High BEDSIDE GLU 153 Result Comment: MANAGEMENT OF PATIENT CARE PER NURSING PROTOCOL Performed By: #### L501.080 #### [facility] Point of Care [address] [place] [address] BEDSIDE GLUCOSE Collected: 06/18/2018 Status: F Source: [place] 2:34 PM [facility] REPOSITORY TYPE CODE TESTS RESULT OUT OF REFERENCE UNITS RANGE LAB L501.080 70-110 mg/dL High BEDSIDE GLU 153 Result Comment: MANAGEMENT OF PATIENT CARE PER NURSING PROTOCOL Performed By: #### L501.080 #### [facility] Point of Care [address] [place] [address] BEDSIDE GLUCOSE Collected: 06/18/2018 Status: F Source: [place] 6:43 AM [facility] REPOSITORY TYPE CODE TESTS RESULT OUT OF RANGE REFERENCE UNITS LAB L501.080 70-110 mg/dL Normal BEDSIDE GLU 107 Result Comment: MANAGEMENT OF PATIENT CARE PER NURSING PROTOCOL Performed By: #### L501.080 #### [facility] Point of Care [address] [place] [address] BASIC METABOLIC Collected: 06/18/2018 Status: F Source: [place] PROFILE (BMP) 5:47 AM [facility] REPOSITORY TYPE CODE TESTS RESULT OUT OF RANGE REFERENCE UNITS LAB L501.0100 74-106 mg/dL Normal GLU 105 Result Comment: Fasting Glucose result from 100 to 125 mg/dL suggests IMPAIRED HOMEOSTASIS per A.D.A. criteria. Please note revised GLUCOSE reference range effective 2017. LAB L501.1000 7-18 mg/dL Normal BUN 7 LAB L501.1100 0.70-1.30 mg/dL Normal CREAT,SERUM 0.85 Result Comment: The validity of the calculated GFR AND GFRAA in patients over 70 years has not been determined. Clinical correlation is essential. LAB L501.1110 >60 mL/min Normal EST GFR 93 Result Comment: Non- GFR Calc LAB L501.1115 >60 mL/min Normal EST GFR - AA 113 Result Comment: GFR Calc LAB L501.1255 ml/min Normal Estimated CRCL 76.34 LAB L501.1300 10-20 RATIO Low BUN/CRE 8.2 LAB L501.2200 8.5-10 mg/dL Low .1 CA 8.1 LAB L501.5300 136-14 mmol/L Normal 5 NA 138 LAB L501.5600 3.5-5. mmol/L Normal 1 K 3.6 LAB L501.5900 98-107 mmol/L High CL 108 LAB L501.6100 21.0-3 mmol/L Normal 2.0 CO2 22.0 LAB L501.6200 5-15 Normal GAP 8 Performed By: #### L500.2500 #### [facility] [address] [place], [address] CBC W/DIFF, AUTOMATED Collected: 06/18/2018 Status: F Source: [place] 5:47 AM [facility] REPOSITORY TYPE CODE TESTS RESULT OUT OF RANGE REFERENCE UNITS LAB L100.1000 4.4-11.0 K/mm3 Normal WBC 6.7 LAB L100.1200 4.6-6.2 M/mm3 Low RBC 4.47 LAB L100.1300 13.0-16.5 g/dl Low HGB 12.2 LAB L100.1400 40-54 % Low HCT 36.7 LAB L100.1500 80-94 fL Normal MCV 82.1 LAB L100.1600 27.0-32.0 pg Normal MCH 27.3 LAB L100.1700 32-36 g/gl Normal MCHC 33.2 LAB L100.1810 11.6-14.6 % High RDW CV 14.8 LAB L100.1820 35.1-43.9 fl Normal RDW SD 43.8 LAB L100.1900 150-450 K/mm3 Normal PLT 337 LAB L100.2000 6.2-12.0 fl Normal MPV 9.9 LAB L100.2100 47-70 % Normal NEUT% 64.7 LAB L100.2200 19-41 % Normal LY% 21.2 LAB L100.2300 0-10 % High MONO% 10.1 LAB L100.2400 0-5 % Normal EO% 3.3 LAB L100.2500 0-1 % Normal BASO% 0.6 LAB L100.2550 0.0-0.9 % Normal IM GRAN % 0.100 Result Comment: IG% - Immature Granulocytes (promyelocytes, myelocytes and metamyelocytes) > 1% indicates that a LEFT SHIFT is Present. LAB L100.2620 2.0-7.7 X10 3/uL Normal Absolute Neut 4.4 LAB L100.2720 0.83-4.51 X10 3/ul Normal Absolute Lymph 1.43 Performed By: #### L100.0100 #### [facility] [address] [place] [address], [id number] BEDSIDE GLUCOSE Collected: 06/17/2018 Status: F Source: [place] 10:37 PM [facility] REPOSITORY TYPE CODE TESTS RESULT OUT OF RANGE REFERENCE UNITS LAB L501.080 70-110 mg/dL Normal BEDSIDE GLU 89 Result Comment: MANAGEMENT OF PATIENT CARE PER NURSING PROTOCOL Performed By: #### L501.080 #### [facility] Point of Care [address] [place] [address]. [place], [place] [id number] BEDSIDE GLUCOSE Collected: 06/17/2018 Status: F Source: [place] 5:05 PM [facility] REPOSITORY TYPE CODE TESTS RESULT OUT OF RANGE REFERENCE UNITS LAB L501.080 70-110 mg/dL Normal BEDSIDE GLU 101 Result Comment: MANAGEMENT OF PATIENT CARE PER NURSING PROTOCOL Performed By: #### L501.080 #### [facility] Point of Care [address] [place] [address] OPERATIVE REPORT - Observed: 06/17/2018 Status: F Source: [facility] 11:02 AM [facility] REPOSITORY [facility] Medical Records Department [address] [place] [address] Operative Report - Endoscopy MR#: [id number] Acct: [id number] Name: LANNY OLIVIER Rep #: [id number] : 1940 77 From: Beto Lucia MD PCP: Delano Epperson MD Status: ADM [place] Patient Name: Lanny Olivier Procedure Date: 06/17/2018 10:38 AM Date of : 1940 Age: 77 Procedure: Colonoscopy Indications: Generalized abdominal pain, Abnormal CT of the GI tract Providers: Beto Lucia MD Referring MD: Beto Lucia MD Medicines: See the Anesthesia note for documentation of the administered medications Patient Profile: Last Colonoscopy: none. The patient's first colonoscopy is today. Complications: No immediate complications. Procedure: Pre-Anesthesia Assessment: - Prior to the procedure, a History and Physical was performed, and patient medications and allergies were reviewed. The patient's tolerance of previous anesthesia was also reviewed. The risks and benefits of the procedure and the sedation options and risks were discussed with the patient. All questions were answered, and informed consent was obtained. Prior Anticoagulants: The patient has taken no previous anticoagulant or antiplatelet agents. ASA Grade Assessment: III - A patient with severe systemic disease. After reviewing the risks and benefits, the patient was deemed in satisfactory condition to undergo the procedure. After I obtained informed consent, the scope was passed under direct vision. Throughout the procedure, the patient's blood pressure, pulse, and oxygen saturations were monitored continuously. The Colonoscope was introduced through the anus and advanced to the hepatic flexure to examine a mass. This was the intended extent. The colonoscopy was performed without difficulty. The patient tolerated the procedure well. The quality of the bowel preparation was poor. Scope In: 10:43:31 AM Scope Out: 10:51:11 AM Total Procedure Duration Time 0 hours 7 minutes 40 seconds Findings: The digital rectal exam findings include non-thrombosed external hemorrhoids, non-thrombosed internal hemorrhoids, internal hemorrhoids that prolapse with straining, but spontaneously regress to the resting position (Grade II) and enlarged prostate. A moderate amount of stool was found in the entire colon, interfering with visualization. A obstructiong mass noted.A obstructing mass was found at the hepatic flexure. Impression: - Preparation of the colon was poor. - Non-thrombosed external hemorrhoids, non-thrombosed internal hemorrhoids, internal hemorrhoids that prolapse with straining, but spontaneously regress to the resting position (Grade II) and enlarged prostate found on digital rectal exam. - Stool in the entire examined colon. - Tumor at the hepatic flexure. - No specimens collected. Plan surgical resection of colon tomorrow Recommendation: - Repeat colonoscopy in 1 year for surveillance. - Continue present medications. Procedure Code(s): --- Professional --- 07441, 53, Colonoscopy, flexible; diagnostic, including collection of specimen(s) by brushing or washing, when performed (separate procedure) Diagnosis Code(s): --- Professional --- K64.1, Second degree hemorrhoids K64.4, Residual hemorrhoidal skin tags D49.0, Neoplasm of unspecified behavior of digestive system R10.84, Generalized abdominal pain N40.0, Benign prostatic hyperplasia without lower urinary tract symptoms R93.3, Abnormal findings on diagnostic imaging of other parts of digestive tract CPT copyright 2017 [employer]. All rights reserved. The codes documented in this report are preliminary and upon kieselguhr regenerator operator review may be revised to meet current compliance requirements. Beto Lucia MD 06/17/2018 11:02:50 AM This report has been signed electronically. Number of Addenda: 0 Note Initiated On: 06/17/2018 10:38 AM 06/17/18 1102 Date Beto Lucia MD Cosigner Signature: Date (if indicated) CC: Delano Epperson MD; Beto Lucia MD Date Dictated: 06/17/18 1038 Date Transcribed: Paddle Dyeing Machine Operator: IVANIA Signed BASIC METABOLIC Collected: 06/17/2018 Status: F Source: [facility]) 7:24 AM [facility] REPOSITORY TYPE CODE TESTS RESULT OUT OF RANGE REFERENCE UNITS LAB L501.0100 74-106 mg/dL Normal GLU 101 Result Comment: Fasting Glucose result from 100 to 125 mg/dL suggests IMPAIRED HOMEOSTASIS per A.D.A. criteria. Please note revised GLUCOSE reference range effective 2017. LAB L501.1000 7-18 mg/dL Normal BUN 18 LAB L501.1100 0.70-1.30 mg/dL Normal CREAT,SERUM 1.00 Result Comment: The validity of the calculated GFR AND GFRAA in patients over 70 years has not been determined. Clinical correlation is essential. LAB L501.1110 >60 mL/min Normal EST GFR 77 Result Comment: Non- GFR Calc LAB L501.1115 >60 mL/min Normal EST GFR - AA 94 Result Comment: GFR Calc LAB L501.1255 ml/min Normal Estimated CRCL 64.89 LAB L501.1300 10-20 RATIO Normal BUN/CRE 18.1 LAB L501.2200 8.5-10 mg/dL Normal .1 CA 8.7 LAB L501.5300 136-14 mmol/L Normal 5 NA 136 LAB L501.5600 3.5-5. mmol/L Low 1 K 3.4 LAB L501.5900 98-107 mmol/L Normal CL 102 LAB L501.6100 21.0-3 mmol/L Normal 2.0 CO2 23.0 LAB L501.6200 5-15 Normal GAP 11 Performed By: #### L500.2500 #### [facility] [address] [place], [address] CBC W/DIFF, AUTOMATED Collected: 06/17/2018 Status: F Source: [facility] 7:24 AM [facility] REPOSITORY TYPE CODE TESTS RESULT OUT OF RANGE REFERENCE UNITS LAB L100.1000 4.4-11.0 K/mm3 Normal WBC 9.8 LAB L100.1200 4.6-6.2 M/mm3 Normal RBC 4.90 LAB L100.1300 13.0-16.5 g/dl Normal HGB 13.3 LAB L100.1400 40-54 % Normal HCT 40.3 LAB L100.1500 80-94 fL Normal MCV 82.2 LAB L100.1600 27.0-32.0 pg Normal MCH 27.1 LAB L100.1700 32-36 g/gl Normal MCHC 33.0 LAB L100.1810 11.6-14.6 % High RDW CV 15.1 LAB L100.1820 35.1-43.9 fl High RDW SD 45.3 LAB L100.1900 150-450 K/mm3 Normal PLT 423 LAB L100.2000 6.2-12.0 fl Normal MPV 9.9 LAB L100.2100 47-70 % High NEUT% 72.9 LAB L100.2200 19-41 % Low LY% 15.6 LAB L100.2300 0-10 % Normal MONO% 9.3 LAB L100.2400 0-5 % Normal EO% 1.3 LAB L100.2500 0-1 % Normal BASO% 0.6 LAB L100.2550 0.0-0.9 % Normal IM GRAN % 0.300 Result Comment: IG% - Immature Granulocytes (promyelocytes, myelocytes and metamyelocytes) > 1% indicates that a LEFT SHIFT is Present. LAB L100.2620 2.0-7.7 X10 3/uL Normal Absolute Neut 7.2 LAB L100.2720 0.83-4.51 X10 3/ul Normal Absolute Lymph 1.53 Performed By: #### L100.0100 #### [facility] [address] [place], [address] HEMOGLOBIN A1C Collected: 06/17/2018 Status: F Source: [facility] 7:24 AM [facility] REPOSITORY Order Comment: Comments: add on to labs already drawn TYPE CODE TESTS RESULT OUT OF RANGE REFERENCE UNITS LAB L501.9985 4.2-6.3 % High HGB A1C 7.0 Performed By: #### L501.9985 #### [facility] [address] [place], [address] SURGERY VISIT REPORT Observed: 06/15/2018 Status: F Source: [facility] 5:04 PM [facility] REPOSITORY [facility] [address] [place] [address] OFFICE VISIT Date of Service: 06/15/18 MR#: [id number] Acct: [id number] Name: LANNY OLIVIER Rep #: [id number] : 1940 Provider: Beto Lucia MD Age/Sex: 77/M Location: [facility] Status: Signed Intake Vital Signs06/15/18 Body Mass Index (BMI) 25.8 06/15/18 Height 5 ft 10 in 06/15/18 Weight: 182 lb Intake Visit Reasons: discuss CT/ c-scope Postulant Required: No Is patient in pain?: No Allergies No Known Allergies Allergy (Verified 06/15/18 15:08) Medications Insulin Aspart [Novolog Flexpen (BKC)] 6 units SUBCUT BIDCM 06/25/17 [History Confirmed 06/15/18] Insulin Glargine,Hum.rec.anlog [Lantus] 25 unit SQ QHS 06/25/17 [History Confirmed 06/15/18] Lisinopril/Hydrochlorothiazide [Zestoretic 20-25 mg Tablet] 1 ea PO DAILY 06/25/17 [History Confirmed 06/15/18] Metformin HCl [Glucophage] 1,000 mg PO BIDCM 06/25/17 [History Confirmed 06/15/18] PFSH Medical History Colon cancer (Acute) Meningitis (Acute) Confusion (Acute) Mental status change (Acute) Tobacco abuse (Chronic) Hypertension (Chronic) Type 2 diabetes mellitus (Chronic) Surgical History History of laparoscopic cholecystectomy (Acute) Family History Mother Cancer stomach Father Diabetes Social History Smoking Status: Current every day smoker tobacco type: cigarettes alcohol intake: never substance use type: does not use HPI HPI HPI: LANNY OLIVIER, is a 77 M who presents to the office today for surgical consultation regarding large bowel obstruction. The patient is referred via both the emergency room and the patient's primary care physician Dr. Delano Epperson. The patient was referred by Dr. Fredis Dorman.. On April 26, 2018 patient was seen at the [place] [facility]. A different surgical group was consulted and it was recommended the patient be sent to [place]. Patient sent me went to [facility] and subsequently on April 27 underwent a laparoscopic cholecystectomy. Gangrenous gallbladder with multiple stones was encountered. It is of note that there were large and small stone spillage and bile spillage at that procedure. It was felt that the stones were retrieved. The patient had a preoperative CT however already demonstrating an abnormality at the hepatic flexure of the colon with wall thickening and suspected abnormality. The patient has not thrived well since his surgery. He has had abdominal cramping and a 33 pound weight loss. He is eating very little. He then returned to the [facility] emergency room on June 09, 2018. A noncontrasted CT scan was obtained suggesting dilatation of the ascending colon probable mass at the hepatic flexure multiple lymph nodes. The patient refused admission. I was notified and requested that the patient have a contrasted CT the next day and that we would see him in the office the next day. My office personally contacted the patient and he declined pursuing the CAT scan and he declined pursuing an office appointment at that setting. He only presents now because of ongoing problems with abdominal pain and cramping. Of remote note is that June 25, 2017 at the [facility] he had an echocardiogram showing an ejection fraction at that time of 60%. Previous colonoscopy was 2006 with no acute findings. He denies family history of colon polyps or colon cancer He is a type II diabetic. He has had a remote appendectomy through a long oblique right lower quadrant incision in childhood. He has had a previous right inguinal herniorrhaphy. And then just a month ago at [facility] he had a laparoscopic cholecystectomy. Contrasted CT scan obtained on June 14, 2018 at the [facility] shows nonobstructing right renal stone. Evidence of the previous cholecystectomy. Distended loop of distal small bowel containing stool. The cecum and ascending colon are distended with stool. There appears to be an obstructive colonic mass at the hepatic flexure suspicious for neoplasm. There is evidence of a previous appendectomy. Mesenteric lymph nodes were noted on the previous examination. The patient states that he did have abdominal cramping related to the oral contrast but that he had 2 bowel movements earlier today. He states that they were solid ROS General General: Yes weight change; no appetite, fatigue, colon cancer, breast cancer or weakness HEENT HEENT: Yes eye surgery; no difficulty swallowing, eye injury, swollen glands or hoarseness Endo Endocrine: Yes diabetes mellitus; no thyroid disease, thyroid cancer, Hair loss, heat intolerance or cold intolerance Skin Skin: No rash or changing moles Breast Breast: No left breast lump, right breast lump, nipple discharge, breast pain, abnormal mammogram, abnormal US or breast enlargement Musc Musculoskeletal: No back problems, arthritis, rheumatoid arthritis, gout or joint pain Cardio Cardiovascular: Yes high blood pressure; no murmur, pacemaker, heart disease, atrial fibrillation, heart attack, heart stent, palpitations, shortness of breat with exertion or chest pain Psych Psychiatric: No depression, anxiety or hearing voices Resp Respiratory: No shortness of breath, No sleep apnea, No cough, No COPD, No asthma, No emphysema, No wheezing Gastro Gastrointestinal: Yes abdominal pain, No nausea or vomiting, No diarrhea, No constipation, No blood in stool, No acid reflux, No hemorrhoids, No ulcers, Yes gallbladder problem, No black,tarry stools Sebastián Hematologic: No blood thinners, No blood disorders, No bleeding, No anemia, No blood clots Neuro Neurologic: No system reviewed and no additional complaints, except as docu, No as per HPI, No abnormal walking, No abnormal hearing, No abnormal movements, No abnormal speech, No behavioral changes, No burning sensations, No confusion, No seizure-like activity, No unsteadiness, No dizziness, No localized weakness, No frequent falls, No headache(s), No lack of coordination, No loss of vision, No memory loss, No numbness, No other visual disturbances, No radiating pain, No restless legs, No sensory deficit, No fainting, No tingling, No tremor(s), No weakness, No other Exam Const General: ill appearing Nutritional Appearance: average body habitus Orientation: alert, awake, oriented x3 HENMT Head: normal to inspection Neck Neck: normal visual inspection Chest Breast Palpation: No nipple discharge Other: Increased anterior posterior diameter Resp Other: Poor respiratory excursion. Slight dry rales in the base. Clear apices Cardio Rate: regular rate Rhythm: regular rhythm Heart Sounds: no murmurs GI Other: Soft, slightly distended, not focally tender, large oblique incision right lower quadrant, small umbilical incision, larger transverse epigastric incision, bowel sounds nonspecific Musc Cervical Spine: normal cervical lordosis Skin Other: Very dry skin noted Neuro Cranial Nerves: CN's II-XI intact bilaterally Extrem General: no calf tenderness bilaterally Psych Affect: normal affect Assessment AND Plan Problems 1. 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 The findings are highly suspicious for a near totally obstructing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 the hepatic flexure of the colon. Complicating features seem to suggest that this process was present April 26, 2018 at the time of his cholecystectomy. The patient's not had a colonoscopy since 2006. He has had significant weight loss. The ascending colon and terminal ileum are distended with stool. The patient is still passing stool but clearly is demonstrating signs of obstruction. There is no current nausea or vomiting. He has had weight loss. He is a chronic cigarette smoker. Type II diabetic. Recent surgical intervention. In addition to the right upper quadrant cholecystectomy with spillage of bile and stones he has also had a previous appendectomy. Potential for intraoperative adhesions significant. The degree of distention of the ascending colon and small bowel clearly places this operation increased risk for intraoperative perforation. In addition because of the obstructive process I will not be able to perform a routine laxative bowel prep in order to perform a preoperative colonoscopy. My only option would be to perform saline enemas and attempt a colonoscopy based upon that. I instructed the patient and family members that at this point the purpose the colonoscopy would simply be an attempt to exclude gross lesions of the left colon. Based upon the current findings I believe that an open procedure will be required. He is aware of the technique, benefit, risks, alternatives. He is aware of the potential for morbidity and mortality. He is aware of the potential for postoperative ventilation sepsis and ICU stay. He is aware of the potential need for diverting ileostomy The patient has had an opting to ask and have questions answered. At this point we will continue to try to expedite his care. My plan will be to attempt cleansing enemas on June 17 with an attempt at a colonoscopy that day within hopeful definitive surgery on June 18. I appreciate the opportunity of assisting with surgical care. We will proceed as noted. CC: Dr. Delano Epperson and Jairo DoverD., F.A.C.S. 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 Colon location: hepatic flexure 06/15/18 1704 <Electronically signed by Beto Lucia MD> Date Beto Lucia MD Cosigner Signature: Date (if applicable) CC: FREDIS DORMAN MD; Delano Epperson MD ABDOMEN/PELVIS WITH Observed: 06/14/2018 Status: F Source: [place] CONTRAST 5:52 PM [facility] REPOSITORY [facility] Imaging Services [address] [place] [id number] Abdomen/Pelvis WITH Contrast MR#: [id number] Acct: [id number] Name: LANNY OLIVIER Rep #: [id number] : 1940 M 77 From: Pradip Quintana MD PCP: Delano Epperson MD Status: REG CLI Study: Abdomen/Pelvis WITH Contrast Date of Exam: 06/14/18 Exam# [id number] Ordering Dr: Beto Lucia MD STUDY: CT ABDOMEN AND PELVIS WITH CONTRAST REASON FOR EXAM: Male, 77 years old. Abdominal pain RADIATION DOSAGE (If Supplied By Facility): CTDIvol = ( 10.79 ) mGy, DLP = ( 1517.24 ) mGycm TECHNIQUE: Transaxial images were obtained from the dome of the diaphragm to the symphysis pubis without oral contrast. 100ml ml of Isovue 300 contrast was administered. Sagittal and coronal images were reconstructed. Individualized dose optimization techniques were used for this CT. COMPARISON: 06/09/2018 FINDINGS: The visualized lung bases are clear. The visualized portions of the heart and pericardium are within normal limits. The patient is status post cholecystectomy. The liver is within normal limits. There are no suspicious hepatic lesions. There are calcified granulomata noted in the liver. The spleen is normal in size. There are calcified granulomata noted in the spleen. The pancreas is within normal limits. The adrenal glands are within normal limits. There is a stable punctate nonobstructing subcentimeter right renal stone. There are no additional urinary stones. There is no hydronephrosis. There are stable cysts noted in the kidneys. Normal visualized stomach. Again noted is a distended loop of distal small bowel which contain formed stool which is consistent with equalization. The cecum and descending colon are distended with stool. There is an obstructing colonic mass in the hepatic flexure which is consistent with neoplasm (for example image 41 series 601). The patient is status post appendectomy. The aorta is normal in caliber. There is no abdominal or pelvic free air, free fluid, fluid collection or lymphadenopathy. There are no destructive osseous lesions. CT/Abdomen/Pelvis WITH Contrast IMPRESSION: Obstructing mass in the hepatic flexure which is consistent with neoplasm. Stable distention of the distal small bowel, cecum and ascending colon with stool which is secondary to this mass. 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 Patient needs Accu check Xuan plus test strips instead. Order pended, please file. Thank you, TYRESE Lacey MD 06/11/2018 12:25 PM Signed The following approved medication requests have been transmitted electronically. Signed Prescriptions Disp Refills blood sugar diagnostic (ACCU-CHEK XUAN PLUS TEST STRP) test strip 150 Strip 11 Sig: Test blood sugar(s) 3-4 times daily. Dx: Type 2 DM - Uncontrolled E11.139 Insulin: Yes Authorizing Provider: DELANO EPPERSON MD Allergies As of Date: 06/11/2018 Noted Allergy Reaction [id number] REDUCTASE INHIBIT*11/16/2014 5 - Intolerance Comments: myalgia ZETIA (EZETIMIBE) 11/14/2016 17 - Myalgia Date Reviewed: 06/09/2018 Reviewed by: Delano Epperson - Fully Assessed Reason for Visit: Refill Request [94] Order(s):blood sugar diagnostic (ACCU-CHEK XUAN PLUS TEST STRP) test stripTest blood sugar(s) 3-4 times daily. Dx: Type 2 DM - Uncontrolled E11.139 Insulin: YesDisp: 150 StripRfl: 11 Prescriptions as of 06/11/2018 Sig: BLOOD SUGAR DIAGNOSTIC STRIPS Test blood sugar(s) 3- 4 times* INSULIN GLARGINE (U-100) 100 * Inject 25 Units subcutaneousl* AMLODIPINE 2.5 MG TABLET Take 1 tablet by mouth once d* LISINOPRIL 20 MG-HYDROCHLOROT* Take 1 tablet by mouth once d* INSULIN ASPART U-100 100 UNI* Inject subcutaneously with fi* ASPIRIN 81 MG TABLET,DELAYED * Take 1 tablet by mouth once d* METFORMIN ER 500 MG TABLET,EX* Take 2 tablets by mouth twice* PEN NEEDLE, DIABETIC 32 GAUGE* Use one needle for each dose.* INSULIN SYRINGE U-100 WITH NE* Use daily as directed LANCETS Use as directed Problem List As Of Date 06/11/2018 Noted Resolved BENIGN HYPERTENSION [I10] 04/19/2007 Mixed hyperlipidemia [E78.2] TOBACCO USE DISORDER [F17.200] 11/11/2005 Primary localized osteoarthrosis, lower leg [M1* More... Patellar tendinitis [M76.50] Unspecified corneal disorder [H18.9] More... More... 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 Generalized arthritis [M19.90] INVALID FOR* PAIN JOINT, KNEE [M25.569] INVALID FOR* Statin intolerance [Z78.9] INVALID FOR* Well adult exam [Z00.00] INVALID FOR* More... Colon cancer screening [Z12.11] INVALID FOR* Essential hypertension with goal blood pressure*INVALID FOR* Disorder of prostate [N42.9] INVALID FOR* Type 2 diabetes mellitus with retinopathy, with*INVALID FOR* Benign non-nodular prostatic hyperplasia withou*INVALID FOR* Elevated prostate specific antigen (PSA) [R97.2*INVALID FOR* More... Diabetic eye exam (HCC) [Z01.00, E11.9] INVALID FOR* More... Medicare annual wellness visit, subsequent [Z00*INVALID FOR* More... Acute cholecystitis [K81.0] INVALID FOR*04/28/2018 Diverticulosis of colon [K57.30] History of smoking [Z87.891] More... Internal hemorrhoids [K64.8] Prescriptions ordered this encounter Disp Refills Start End BLOOD SUGAR DIAGNOSTIC STRIPS 150 * 11 06/11/2018 Sig: Test blood sugar(s) 3-4 times daily. Dx: Type 2 DM - Uncontrolled E11.139 Insulin: Yes Medications Discontinued During This Encounter blood sugar diagnostic (ONETOUCH ULT* 150 * 11 06/09/2018 06/11/2018 Sig: Test blood sugar 3-4 times per day. Dx: E11.139. Insulin Dep: Yes Disc: Erroneous entry Encounter Status:Closed by DELANO EPPERSON on 06/11/18 EMERGENCY DEPARTMENT Observed: 06/10/2018 Status: F Source: [place] SUMMARY 1:24 AM [facility] REPOSITORY [facility] Medical Records Department [address] [place] [address] Emergency Department Summary 06/09/18 1627 MR#: [id number] Acct: [id number] Name: LANNY OLIVIER Rep #: [id number] : 1940 77 From: Fredis Dorman MD PCP: Delano Epperson MD Status: DEP ER ADDENDUM by FREDIS DORMAN MD on 06/10/18 at 0124 Had no response from the [facility] physician covering for Dr. Epperson. Pt given Rx for CT and information for scheduling it. 06/10/18 0124 Date Fredis Dorman MD cc: Delano Epperson MD; Beto Lucia MD * Signed History of Present Illness Chief Complaint: Abd Pain Informant: Patient Onset: Weeks - 3 Context: Gradual Onset Timing: Continuous - mild soreness, Intermittent - and brief sharp pains in same location Quality: sore, sharp Location: RLQ. nonmigrating, nonradiating. Current Severity: Moderate Maximum Severity: Moderate Worsened by: movement, lying on right side Relieved by: nothing Associated Symptoms: none. no fevers, n/v/d, BRBPR, melena Narrative: Patient had a cholecystectomy about 5 weeks ago, about 1 week afterwards he developed this discomfort that has been persistent ever since, he states it is not worsening. He has no associated symptoms, he did have some diarrhea couple weeks ago but that resolved, the pain is been persistent. He does not get better after having a bowel movement or urinating. No urinary symptoms. Had prior appendectomy remotely, as well as a herniorrhaphy. He is having normal bowel movements now, he states. He had not been seen for this discomfort yet until today, when he had a routine unrelated visit with his PCP, and he had labs drawn several days ago in preparation for this visit, they show a significant leukocytosis at 19.7. Just prior to his cholecystectomy his white blood count was 26.6, but went down to 11 after that. Given this and his abdominal discomfort he was sent to the ER for further evaluation and CT scan. - Past Medical History (1) Hypertension Status: Chronic (2) Type 2 diabetes mellitus Status: Chronic Past Medical History - Allergies and Home Meds Allergies/Adverse Reactions: Allergies No Known Allergies Allergy (Verified 04/26/18 13:02) Primary Care Physician: Delano Epperson MD [Primary Care Provider] - Surgical History: appendectomy, cholecystectomy, herniorrhaphy Smoking Status: Current every day smoker - Family History Maternal Family History: Reports: Cancer Paternal Family History: Reports: Diabetes, Stroke Review of Systems General: Denies: Chills, Fever, Sweats Eyes: Denies: Visual changes - bilaterally, Diplopia ENT: Denies: Rhinorrhea, Sore throat Cardiovascular: Denies: Chest pain, Palpitations Respiratory: Denies: Dyspnea, Cough, Dyspnea on exertion Gastrointestinal: Reports: Abdominal pain. Denies: Nausea, Vomiting, Diarrhea, Melena, Hematochezia Genitourinary: Denies: Dysuria, Hematuria, Frequency Musculoskeletal: Denies: Neck pain, Back pain, Swelling, Extremity Pain Skin: Denies: Rash, Abscess Neurological: Denies: Headache, Weakness, Numbness Psych: Denies: Depression, Suicidal thoughts Allergy: Denies: Swelling of the mouth, Swelling of the tongue Physical Exam Vital Signs/Narrative: Vital Signs 06/09/18 15:15 97.2 F L 75 16 115/58 L 99 Inital Vital Signs reviewed: Yes General: Well nourished, Well developed Head: Normocephalic, Atraumatic Eyes: Perrl, EOMI ENT: Moist mucous membranes, No rhinorrhea Neck: Supple, Nontender Cardiovascular: Regular rate, Regular rhythm, No murmurs Respiratory: No distress, CTA bilaterally, Chest nontender Abdomen: Soft, Nondistended, Normal bowel sounds, Tender - RLQ into mid-right abd; otherwise, NT.. Negative for: Guarding, Rebound tenderness, Mass Back: Nontender, Normal Inspection. Negative for: CVA tenderness Extremities: Nontender, No edema Skin: Normal color, No rash Neurological: Alert, Oriented x3, Cranial nerves II-XII grossly intact, Normal Strength, Normal Sensation Psychological: Normal affect ED Disposition - Plan for ED Patient: Disposition: Home or Assisted Living Chief Complaint: Abd Pain Diagnosis: RLQ abdominal pain, Colonic mass Instructions: ED Abdominal Pain Unkn Cause Referrals: Delano Epperson MD [Primary Care Provider] - As soon as possible () Beto Lucia MD [STAFF PHYSICIAN] - As soon as possible (but to be seen after your CT) Additional Instructions: Patient has a leukocytosis but a CT that is concerning for possible colonic obstruction due to mass. There are signs of distention proximal to this, and into the ileum but some of the CT findings are more consistent with enteritis. Clinically, he does not have enteritis or obstruction symptoms. He is having good bowel movements, eating and drinking normally. He declined analgesics for pain on multiple offers. He does not want to be admitted to the hospital. I discussed the mass on CT, he wants to be discharged home and does not want to stay in the hospital. I discussed with Dr. Lucia who was on for surgery who states he would be happy to follow-up with the patient but requested an oral contrasted CT to be done as an outpatient first. It was offered here but the patient wants to leave. Will discuss with the physician on-call for Dr. Epperson as well. What to do if you have Problems For any increased pain, shortness of breath, bleeding, nausea or vomiting, chest pain, or any unexpected problems, contact your Primary Care Provider. Call [facility] ([phone]) or report to the closest Emergency Room. Call 911 if necessary. 06/09/181916 <Electronically signed by Fredis Dorman MD> Date Fredis Dorman MD Cosigner Signature (If Indicated): Date CC: Delano Epperson MD; Beto Lucia MD URINALYSIS, COMPLETE Collected: 06/09/2018 Status: F Source: [place] 5:20 PM [facility] REPOSITORY Order Comment: Order Date: 06/09/18 How was Urine Obtained? CLEAN CATCH TYPE CODE TESTS RESULT OUT OF RANGE REFERENCE UNITS LAB L400.3000 Yellow COLOR Normal Yellow LAB L400.3050 Clear Normal CLARITY Clear LAB L400.3200 Normal mg/dl Normal GLUCOSE, UR Normal LAB L400.3300 Negative mg/dL Normal BILIRUBIN URINE Negative LAB L400.3400 Negative mg/dl High 5 KETONE UR LAB L400.3465 1.002-1.030 Normal SP.GR. DIPSTX 1.020 LAB L400.3550 5.0 - 8.0 pH UR Normal 5.0 LAB L400.3600 Negative mg/dl PROT Normal DIPSTX Negative LAB L400.3700 Normal mg/dl Normal UROBILI Normal LAB L400.3750 Negative Normal NITRITE UR Negative LAB L400.3780 Negative /ul Normal OCCULT BLOOD-UR Negative LAB L400.3800 Negative /ul LEUK Normal ESTERASE Negative LAB L400.4050 0-5 /hpf WBC 0 Normal SEEN LAB L400.4100 0-5 /hpf 0 Normal RBC-UA SEEN LAB L400.4150 0-5 /hpf SQUAM 0 Normal EPI SEEN LAB L400.4300 None Seen /hpf Normal BACTERIA RARE LAB L400.4350 <or=2+ /hpf 1+ Normal MUCUS, URINE Performed By: #### L400.0001 #### [facility] [address], [address] CBC W/DIFF, AUTOMATED Collected: 06/09/2018 Status: F Source: [place] 4:20 PM [facility] REPOSITORY TYPE CODE TESTS RESULT OUT OF RANGE REFERENCE UNITS LAB L100.1000 4.4-11.0 K/mm3 High WBC 13.1 LAB L100.1200 4.6-6.2 M/mm3 Normal RBC 4.67 LAB L100.1300 13.0-16.5 g/dl Low HGB 12.7 LAB L100.1400 40-54 % Low HCT 39.2 LAB L100.1500 80-94 fL Normal MCV 83.9 LAB L100.1600 27.0-32.0 pg Normal MCH 27.2 LAB L100.1700 32-36 g/gl Normal MCHC 32.4 LAB L100.1810 11.6-14.6 % High RDW CV 14.8 LAB L100.1820 35.1-43.9 fl High RDW SD 45.9 LAB L100.1900 150-450 K/mm3 Normal PLT 349 LAB L100.2000 6.2-12.0 fl Normal MPV 9.8 LAB L100.2100 47-70 % High NEUT% 76.6 LAB L100.2200 19-41 % Low LY% 15.6 LAB L100.2300 0-10 % Normal MONO% 6.7 LAB L100.2400 0-5 % Normal EO% 0.7 LAB L100.2500 0-1 % Normal BASO% 0.2 LAB L100.2550 0.0-0.9 % Normal IM GRAN % 0.200 Result Comment: IG% - Immature Granulocytes (promyelocytes, myelocytes and metamyelocytes) > 1% indicates that a LEFT SHIFT is Present. LAB L100.2620 2.0-7.7 X10 3/uL High Absolute Neut 10.0 LAB L100.2720 0.83-4.51 X10 3/ul Normal Absolute Lymph 2.04 Performed By: #### L100.0100 #### [facility] [address] [place], [place], [address] COMPREHENSIVE METABOLIC Collected: 06/09/2018 Status: F Source: [facility] 4:20 PM [facility] REPOSITORY TYPE CODE TESTS RESULT OUT OF RANGE REFERENCE UNITS LAB L501.0100 74-106 mg/dL High GLU 124 Result Comment: Fasting Glucose result from 100 to 125 mg/dL suggests IMPAIRED HOMEOSTASIS per A.D.A. criteria. Please note revised GLUCOSE reference range effective 2017. LAB L501.1000 7-18 mg/dL Normal BUN 17 LAB L501.1100 0.70-1.30 mg/dL Normal CREAT,SERUM 1.06 Result Comment: The validity of the calculated GFR AND GFRAA in patients over 70 years has not been determined. Clinical correlation is essential. LAB L501.1110 >60 mL/min Normal EST GFR 72 Result Comment: Non- GFR Calc LAB L501.1115 >60 mL/min Normal EST GFR - AA 87 Result Comment: GFR Calc LAB L501.1255 ml/min Normal Estimated CRCL 61.22 LAB L501.1300 10-20 RATIO Normal BUN/CRE 16.0 LAB L501.1500 6.4-8. g/dL Normal 2 T PROT 6.9 LAB L501.1800 3.2-5. g/dL Normal 0 ALB 3.5 LAB L501.1950 2.2-4. g/dL Normal 2 GLOB 3.4 LAB L501.2000 0.9-2. RATIO Normal 4 A/G 1.0 LAB L501.2200 8.5-10 mg/dL Normal .1 CA 8.8 LAB L501.4100 15-37 U/L Low AST 10 LAB L501.4305 45-117 U/L Normal ALK P 95 LAB L501.4405 16-61 U/L Low ALT 15 LAB L501.4600 0.20-1 mg/dL Normal .00 T BILI 0.70 LAB L501.5300 136-14 mmol/L Low 5 NA 135 LAB L501.5600 3.5-5. mmol/L Normal 1 K 3.9 LAB L501.5900 98-107 mmol/L Normal CL 101 LAB L501.6100 21.0-3 mmol/L Normal 2.0 CO2 26.0 LAB L501.6200 5-15 Normal GAP 8 Performed By: #### L500.4050 #### [facility] [address] [place], [address] ABDOMEN/PELVIS WITHOUT Observed: 06/09/2018 Status: F Source: [place] CONT 4:13 PM [facility] [facility] Imaging Services [address] [place] [address] Abdomen/Pelvis without Cont MR#: [id number] Acct: [id number] Name: LANNY OLIVIER Rep #: [id number] : 1940 M 77 From: Piero Baltazar MD PCP: Delano Epperson MD Status: REG ER Study: Abdomen/Pelvis without Cont Date of Exam: 06/09/18 Exam# [id number] Ordering Dr: Fredis Dorman MD STUDY: CT ABDOMEN AND PELVIS WITHOUT CONTRAST REASON FOR EXAM: Male, 77 years old. Right lower quadrant pain, leukocytosis, recent cholecystectomy. RADIATION DOSAGE (If Supplied By Facility): CTDIvol = ( 10.93 ) mGy, DLP = ( 592.5 ) mGycm TECHNIQUE: Transaxial images were obtained from the dome of the diaphragm to the symphysis pubis without oral contrast, and without intravenous contrast. Sagittal and coronal images were reconstructed. Individualized dose optimization techniques were used for this CT. COMPARISON: CT abdomen and pelvis 04/26/2018. Ultrasound gallbladder 04/26/2018. FINDINGS: Body wall soft tissues: No acute process. Osseous structures: No acute process. Inferior chest: Somewhat hyperlucent lung bases suggesting underlying COPD/emphysema. Normal distal esophagus. Minimal sliding hiatal hernia paraesophageal. No significant cardiomegaly. No pericardial effusion. Three-vessel coronary calcifications. Aortic valve annulus calcifications. Hepatobiliary: Normal appearance of the liver. Gallbladder surgically absent. Color fossa exhibits no acute abnormality. Nondilated intrahepatic and extrahepatic biliary tree. Pancreas: Moderate pancreatic atrophy. No ductal ectasia or suspicious focal lesion. Spleen: Punctate calcifications consistent with old granulomas disease. Adrenal glands: Normal. Urogenital: Grossly benign renal cysts are unchanged compared to prior imaging, incompletely characterized on noncontrast CT scan. Solitary punctate nonobstructing calyceal calculus of the right kidney. No hydronephrosis or hydroureter. Slender calcified material layers within the posterior aspect of the urinary bladder, along the wall. Whether this represents wall calcification, or layering dense debris is unknown. The prostate is enlarged, measuring up to 6.7 cm craniocaudal, 5.5 cm anterior-posterior, 6.1 cm transverse. Circumscribed margins. Symmetric and unremarkable appearance of the seminal vesicles. Pelvic floor and sidewalls and retroperitoneum: There are numerous tiny lymph nodes within the retroperitoneum periaortic, none pathologically enlarged. Vasculature: Moderate aortoiliac atherosclerotic calcifications. Stomach: No acute process. Small bowel and mesentery: The duodenum and jejunum are nondilated. There is gradual increasing dilatation of the ileum, proximal ileum to terminal ileum, terminating at the ileocecal valve, with a greatest diameter of 4.2 cm. Diffuse mild thickening of wall. Slight induration and hyperemia in the adjacent mesentery. Scattered air-fluid levels. There are numerous tiny lymph nodes within the small bowel mesentery not pathologically enlarged acutely inflamed. Large bowel: The appendix is not seen. There is mild circumferential thickening of the wall the cecum. Prominent circumferential irregular thickening of the wall of the ascending colon and proximal flexure in a pattern suggesting malignancy, associated with numerous tiny lymph nodes in the cecal mesentery in the mesentery adjacent to the ascending colon. The suspected malignancy spans a segment measuring approximately 6.7 cm. The remainder of the large bowel is unremarkable. Normal rectum. Similar features of the ascending colon and proximal hepatic flexure were seen on the prior study of 04/26/2018, but with features at that time suggesting vicarious inflammation of the bowel wall adjacent to a prominently inflamed gallbladder. With persistent abnormality of the bowel wall in the absence of inflammation, malignancy must be suspected. Free fluid or free air: None. CT/Abdomen/Pelvis without Cont IMPRESSION: 1. Diffuse dilatation and mild wall thickening of the ileum, terminating at the ileocecal valve. The ileocecal valve itself appears normal. The appearance suggests acute enteritis rather than mechanical obstruction. 2. However, the cecum and proximal ascending colon are now somewhat dilated, probably filled with gas and a small amount of fluid, the dilatation terminating at the segment of suspected malignancy of the distal ascending colon and proximal hepatic flexure. It is possible that the small bowel is dilated in response to obstruction of the colon lumen. This does not however explain the mild circumferential thickening of wall the ileum and slight induration in the mesenteric fat, favoring enteritis. Leukocytosis also favors enteritis. 3. Irregular and prominent abnormal thickening of the wall of the distal ascending colon and proximal hepatic flexure is persistent even in the absence of the inflammation that was present adjacent to the segment of large bowel at the time of acute cholecystitis. Therefore, this segment must be regarded with significant suspicion for malignancy. Follow-up colonoscopy is suggested. 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 Patient with hx of DM 2, HTN, Hyperlipidemia, general arthritis as well as those reviewed and addressed below. Had gal bladder removed 04/27/2018. Every since then has been getting cramping in his lower abdomen. Has been having a BM once a day and soft. No recent nausea or vomiting. Did have diarrhea up to a few days ago. No fevers or chills With the gal bladder issues he lost about 30 lbs. FBS: 54-180. Has had a low BS on twice. Sometimes his evening BS will be 100 so he wont take his lantus because the FBS will be in the 50's in the morning. Past medical history, appointments, medications, allergies reviewed. 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 Previous Surgical History PAST SURGICAL HISTORY Procedure Laterality Date - 2D ECHO (EXEP) 06/25/2017 EF=60%, no valve issues - APPENDECTOMY 1966 - CHOLECYSTECTOMY 04/27/2018 - COLONOSCOP W/ OR W/O [facility] SPEC 10/15/06 repeat due 2016 - FECAL OCCULT BLOOD TEST 03/14/2016 Neg - REMV CATARACT EXTRACAP,INSERT LENS 2011 bilateral - REPAIR ING HERNIA,5+Y/O,REDUCIBL 1981 Hernia repair, inguinal: right Family History FAMILY HISTORY Problem Relation Age of Onset - Cancer Mother age 76 cancer stomach - Stroke Father age 77 - Diabetes Brother age 62 - Coronary Artery Disease Brother age 42 Patient Allergies ALLERGIES Allergen Reactions - Meprdrd-Jgq-Enr Red* Intolerance myalgia - Zetia [Ezetimibe] Myalgia Current Medications Current Outpatient Prescriptions on File Prior to Visit: insulin glargine (LANTUS SOLOSTAR, BASAGLAR KWIKPEN) 100 unit/mL (3 mL) inpn Inject 34 Units subcutaneously daily at bedtime. amLODIPine (NORVASC) 2.5 mg tablet Take 1 tablet by mouth once daily. lisinopril-hydrochlorothiazide (PRINZIDE, ZESTORETIC) 20-25 mg per tablet Take 1 tablet by mouth once daily. insulin aspart U-100 (NOVOLOG FLEXPEN U-100 INSULIN) 100 unit/mL inpn Inject subcutaneously with first bite of food, 6 units w/ breakfast, lunch and dinner metFORMIN ER (GLUCOPHAGE XR) 500 mg 24 hr tablet Take 2 tablets by mouth twice daily before meals. blood sugar diagnostic(ONE TOUCH ULTRA TEST STRIPS) Test blood sugar 3-4 times per day. Dx: 250.00. Insulin Dep: Yes tamsulosin ER (FLOMAX) 0.4 mg cap Take 1 capsule by mouth once daily. (Patient not taking: Reported on 05/13/2018 ) aspirin, enteric coated (ASPIRIN, ENTERIC COATED) 81 mg EC tablet Take 1 tablet by mouth once daily. Insulin [place], Disposable, (BD ULTRA-FINE MIAN PEN NEEDLES) 32 gauge x 5/32 ndle Use one needle for each dose. 4/day. Insulin Syringe-Needle U-100 (BD INSULIN SYRINGE ULTRA-FINE) 0.5 mL 31 gauge x 5/16 syrg Use daily as directed Lancets (ONE TOUCH ULTRASOFT LANCETS) Misc lancets Use as directed No current facility-administered medications on file prior to visit. 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 See HPI NECK: Negative for lumps, goiter, pain and significant neck swelling RESPIRATORY: Negative for cough, hemoptysis, wheezing, COPD, dyspnea or shortness of breath CARDIOVASCULAR: Negative for chest pain, leg swelling, hypertension, CHF or palpitations GI: No frequrnt heartburn or reflux symptoms and See HPI : No history of dysuria, frequency or blood. Up at night 1-2 times. MUSCULOSKELETAL: arthritic pain has been stable ENDOCRINE: See HPI NEURO: No history of headaches, syncope, paralysis, seizures or tremors Hem: No significant bruising or bleeding. EXAM: BP (!) 114/48 Pulse 80 Temp 37.1 ?C (98.7 ?F) Resp 12 Wt 81.6 kg (180 lb) BMI 25.83 kg/m? Last 5 Encounter Wt Readings: Date: Wt: 06/09/2018 81.6 kg (180 lb) 05/13/2018 86.6 kg (191 lb) 04/26/2018 88.5 kg (195 lb) 12/07/2017 91.2 kg (201 lb) 06/09/2017 95.7 kg (211 lb) General Appearance: alert, in no acute distress, well-hydrated, well nourished. Patient appears not to be feeling well and not his typical self.. Eyes: Anicteric sclera. Pupils are equally round and reactive to light. Extraocular movements are intact. . Oropharynx: Lips, mucosa, and tongue normal, teeth and gums normal, oropharynx normal. Neck: Supple, no adenopathy; thyroid symmetric, normal size, no bruits. Lungs: lungs clear to auscultation. No wheezing, rhonchi, rales. Heart: RRR without murmur, gallop, or rubs. No ectopy. Abdomen: Normal abdominal exam, Bowel sounds normal. No masses, organomegaly. Slightly firm and generalized pain in the LUQ, LLQ and RLQ with mild guarding. Extremities: No deformities, edema,. Musculoskeletal: Muscular strength intact, No joint swelling, deformity, or tenderness. Peripheral Pulses: Normal. Neurologic: Gait normal. Reflexes normal and symmetric. Sensation to light touch and crainal nerves 2-12 intact.. Health Maintenance List LUNG CANCER SCREENING due on 1996 DTAP,TDAP,TD(2 - Tdap) due on 12/14/2012 COLORECTAL CANCER SCREENING,SEE MODIFIER due on 10/15/2016 DILATED RETINAL EXAM due on 02/05/2017 URINE ALBUMIN:CREATININE RATIO due on 06/02/2018 DIABETES MED ADHERENCE due on 06/25/2018 HBA1C due on 12/05/2018 DIABETIC FOOT EXAM due on 12/07/2018 ANNUAL PCP TEAM CHRONIC DISEASE VISIT due on 12/07/2018 LDL CHOLESTEROL due on 06/07/2019 BP CONTROLLED (<130/80) due on 06/09/2019 ADULT PREVNAR-13 Completed INFLUENZA Completed PNEUMOVAX AGE 65 AND OVER WITH 5YR LOOKBACK Completed Data reviewed Component Latest Ref Rng AND Units 06/02/2017 11/26/2017 04/26/2018 06/07/2018 WBC 3.70 - 11.00 k/uL 26.61 (HH) 19.70 (H) RBC 4.20 - 6.00 m/uL 4.54 (L) 5.39 HGB 13.7 - 17.5 g/dL 12.3 (L) Hematocrit 39.0 - 51.0 % 37.9 (L) 46.1 MCV 80.0 - 100.0 fL 83.5 85.5 MCH 26.0 - 34.0 pG 27.1 27.3 MCHC 30.5 - 36.0 g/dL 32.5 31.9 RDW 11.6 - 14.4 % 14.3 RDW-SD 36.1 - 45.8 fl 43.7 Platelet Count 150 - 400 k/uL 320 477 (H) MPV 9.0 - 12.7 fL 10.4 10.3 Seg Neutrophil % 86.9 Immature Grans % 0.60 Lymphocyte % 5.3 Monocyte % 7.0 Eosinophil % 0.0 Basophil % 0.2 Abs. Neut(Anc) 1.78 - 5.38 thou/cmm 23.12 (H) Immature Grans # 0.00 - 0.05 thou/cmm 0.16 (H) Abs. Lymph 0.84 - 2.85 thou/cmm 1.41 Abs. Sibley 0.30 - 0.82 thou/cmm 1.86 (H) Abs. Eosin 0.04 - 0.54 thou/cmm 0.00 (L) Abs. Baso 0.01 - 0.08 thou/cmm 0.05 Pathologist See below Hemoglobin 13.0 - 17.0 g/dL 14.7 RDW-CV 11.5 - 15.0 % 14.4 Neut% % 84.0 Abs Neut (ANC) 1.45 - 7.50 k/uL 16.54 (H) Lymph% % 9.0 Abs Lymph 1.00 - 4.00 k/uL 1.78 Sibley% % 6.2 Abs S[place]y <0.87 k/uL 1.22 (H) Eosin% % 0.4 Abs Eosin <0.46 k/uL 0.08 Baso% % 0.4 Abs Baso <0.11 k/uL 0.08 Nucleated Reds 0 /100 WBC 0.0 Absolute nRBC <0.01 k/uL <0.01 Diff Type Auto Diff Protein, Total 6.3 - 8.0 g/dL 7.4 6.9 Albumin 3.9 - 4.9 g/dL 4.4 4.2 Calcium 8.5 - 10.2 mg/dL 9.5 9.5 Bilirubin, Total 0.2 - 1.3 mg/dL 0.4 0.6 Alkaline Phosphatase 38 - 113 U/L 76 82 AST 14 - 40 U/L 15 10 (L) Glucose 74 - 99 mg/dL 115 (H) 165 (H) BUN 9 - 24 mg/dL 15 14 Creatinine 0.73 - 1.22 mg/dL 1.05 1.03 Sodium 136 - 144 mmol/L 138 135 (L) Potassium 3.7 - 5.1 mmol/L 4.1 4.2 Chloride 97 - 105 mmol/L 99 97 CO2 22 - 30 mmol/L 25 25 Anion Gap 9 - 18 mmol/L 14 13 ALT 10 - 54 U/L 18 12 eGFR- >60 >60 eGFR-All Other Races . >60 >60 Cholesterol, Total <200 mg/dL 169 138 Triglyceride <150 mg/dL 117 167 (H) HDL Cholesterol >39 mg/dL 35 (L) 34 (L) LDL Cholesterol <100 mg/dL 111 (H) 71 Non HDL Cholesterol <130 mg/dL 134 (H) 104 Fasting Time hrs 12 14 VLDL Cholesterol <30 mg/dL 23 33 (H) TC:HDL Ratio <5.10 4.83 4.06 LDL:HDL Ratio <2.54 3.17 (H) 2.09 Hemoglobin A1C 4.3 - 5.6 % 6.7 (H) 6.5 (H) Estimated Average Glucose mg/dL 146 140 A/P ASSESSMENT/PLAN: 1. Type 2 diabetes mellitus with retinopathy, with long-term current use of insulin, macular edema presence unspecified, unspecified laterality, unspecified retinopathy severity (HCC) - ICD9: 250.50, 362.01, V58.67, ICD10: E11.319, Z79.4 (primary diagnosis) Controlled. - Decrease Lantus to 25 units QPM - Daily Asprin therapy recommended - BP goal of <130/80 - LDL goal of <100 2. Diabetic eye exam (HCC) - ICD9: V72.0, 250.00, ICD10: Z01.00, E11.9 - Will get last eye report 3. Essential hypertension with goal blood pressure less than 130/85 - ICD9: 401.9, ICD10: I10 - Too low - Decrease amlodipine (Norvasc): stop it - Recommended regular aerobic exercise. - Recommend home blood pressure monitoring, to bring results in on next visit - Goal of BP <130/80 4. Mixed hyperlipidemia - ICD9: 272.2, ICD10: E78.2 - good control - Encouraged following a low fat, low cholesterol diet. - Discussed the benefits of regular aerobic exercise and weight loss. - Encouraged following a low carbohydrate, healthy oil intake diet. - Continue current therapy. 5. Benign non-nodular prostatic hyperplasia without lower urinary tract symptoms - ICD9: 600.90, ICD10: N40.0 - Clinically stable and does not seem to need the flomax. 6. Generalized arthritis - ICD9: 716.90, ICD10: M19.90 - Stable cont use of garvey 7. 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 Acute abdominal pain - ICD9: 789.00, 338.19, ICD10: R10.9 - Concern with recent surgery and elevated white blood count he need a STAT CT of the abdomen. Patient will be sent to [facility]. Signed Prescriptions Disp Refills blood sugar diagnostic (ONETOUCH ULTRA TEST) test strip 150 Bottle 11 Sig: Test blood sugar 3-4 times per day. Dx: E11.139. Insulin Dep: Yes NANO: No F/u 4 weeks with Jordon for HTN check F/u 4 months routine check A1c, FLP BMP prior Time entering room was 1:37 PM and time leaving was 2:24 PM (total face to face time was 47 min) Delano Epperson MD CNOV Observed: 06/09/2018 Status: COMPLETED Source: [place] 1:20 PM [facility] REPOSITORY Office Visit (FAMPWS) LANNY OLIVIER ([id number]) 1940 M Date Time Provider Department 06/09/18 1:20 PM [facility] During your visit today, we recorded the following information about you: Temperature Pulse Respiration Blood pressure 98.7 degrees 80/minute 12/minute 114/48 Weight 81.6 kg Delano Epperson MD 06/09/2018 7:58 PM Signed Chief Complaint Patient presents with: Recheck: 6 months HPI Lanny Muñoz Charline is a 77 year old male who presents here today for Chronic Medical Conditions.. Patient with hx of DM 2, HTN, Hyperlipidemia, general arthritis as well as those reviewed and addressed below. Had gal bladder removed 04/27/2018. Every since then has been getting cramping in his lower abdomen. Has been having a BM once a day and soft. No recent nausea or vomiting. Did have diarrhea up to a few days ago. No fevers or chills With the gal bladder issues he lost about 30 lbs. FBS: 54-180. Has had a low BS on twice. Sometimes his evening BS will be 100 so he wont take his lantus because the FBS will be in the 50's in the morning. Past medical history, appointments, medications, allergies reviewed. 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 Previous Surgical History PAST SURGICAL HISTORY Procedure Laterality Date - 2D ECHO (EXEP) 06/25/2017 EF=60%, no valve issues - APPENDECTOMY 1966 - CHOLECYSTECTOMY 04/27/2018 - COLONOSCOP W/ OR W/O [facility] SPEC 10/15/06 repeat due 2016 - FECAL OCCULT BLOOD TEST 03/14/2016 Neg - REMV CATARACT EXTRACAP,INSERT LENS 2011 bilateral - REPAIR ING HERNIA,5+Y/O,REDUCIBL 1981 Hernia repair, inguinal: right Family History FAMILY HISTORY Problem Relation Age of Onset - Cancer Mother age 76 cancer stomach - Stroke Father age 77 - Diabetes Brother age 62 - Coronary Artery Disease Brother age 42 Patient Allergies ALLERGIES Allergen Reactions - Ikaftet-Fmg-Yke Red* Intolerance myalgia - Zetia [Ezetimibe] Myalgia Current Medications Current Outpatient Prescriptions on File Prior to Visit: insulin glargine (LANTUS SOLOSTAR, BASAGLAR KWIKPEN) 100 unit/mL (3 mL) inpn Inject 34 Units subcutaneously daily at bedtime. amLODIPine (NORVASC) 2.5 mg tablet Take 1 tablet by mouth once daily. lisinopril-hydrochlorothiazide (PRINZIDE, ZESTORETIC) 20-25 mg per tablet Take 1 tablet by mouth once daily. insulin aspart U-100 (NOVOLOG FLEXPEN U-100 INSULIN) 100 unit/mL inpn Inject subcutaneously with first bite of food, 6 units w/ breakfast, lunch and dinner metFORMIN ER (GLUCOPHAGE XR) 500 mg 24 hr tablet Take 2 tablets by mouth twice daily before meals. blood sugar diagnostic(ONE TOUCH ULTRA TEST STRIPS) Test blood sugar 3-4 times per day. Dx: 250.00. Insulin Dep: Yes tamsulosin ER (FLOMAX) 0.4 mg cap Take 1 capsule by mouth once daily. (Patient not taking: Reported on 05/13/2018 ) aspirin, enteric coated (ASPIRIN, ENTERIC COATED) 81 mg EC tablet Take 1 tablet by mouth once daily. Insulin [place], Disposable, (BD ULTRA-FINE MIAN PEN NEEDLES) 32 gauge x 5/32 ndle Use one needle for each dose. 4/day. Insulin Syringe-Needle U-100 (BD INSULIN SYRINGE ULTRA-FINE) 0.5 mL 31 gauge x 5/16 syrg Use daily as directed Lancets (ONE TOUCH ULTRASOFT LANCETS) Misc lancets Use as directed No current facility-administered medications on file prior to visit. 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 See HPI NECK: Negative for lumps, goiter, pain and significant neck swelling RESPIRATORY: Negative for cough, hemoptysis, wheezing, COPD, dyspnea or shortness of breath CARDIOVASCULAR: Negative for chest pain, leg swelling, hypertension, CHF or palpitations GI: No frequrnt heartburn or reflux symptoms and See HPI : No history of dysuria, frequency or blood. Up at night 1-2 times. MUSCULOSKELETAL: arthritic pain has been stable ENDOCRINE: See HPI NEURO: No history of headaches, syncope, paralysis, seizures or tremors Hem: No significant bruising or bleeding. EXAM: BP (!) 114/48 Pulse 80 Temp 37.1 ?C (98.7 ?F) Resp 12 Wt 81.6 kg (180 lb) BMI 25.83 kg/m? Last 5 Encounter Wt Readings: Date: Wt: 06/09/2018 81.6 kg (180 lb) 05/13/2018 86.6 kg (191 lb) 04/26/2018 88.5 kg (195 lb) 12/07/2017 91.2 kg (201 lb) 06/09/2017 95.7 kg (211 lb) General Appearance: alert, in no acute distress, well-hydrated, well nourished. Patient appears not to be feeling well and not his typical self.. Eyes: Anicteric sclera. Pupils are equally round and reactive to light. Extraocular movements are intact. . Oropharynx: Lips, mucosa, and tongue normal, teeth and gums normal, oropharynx normal. Neck: Supple, no adenopathy; thyroid symmetric, normal size, no bruits. Lungs: lungs clear to auscultation. No wheezing, rhonchi, rales. Heart: RRR without murmur, gallop, or rubs. No ectopy. Abdomen: Normal abdominal exam, Bowel sounds normal. No masses, organomegaly. Slightly firm and generalized pain in the LUQ, LLQ and RLQ with mild guarding. Extremities: No deformities, edema,. Musculoskeletal: Muscular strength intact, No joint swelling, deformity, or tenderness. Peripheral Pulses: Normal. Neurologic: Gait normal. Reflexes normal and symmetric. Sensation to light touch and crainal nerves 2-12 intact.. Health Maintenance List LUNG CANCER SCREENING due on 1996 DTAP,TDAP,TD(2 - Tdap) due on 12/14/2012 COLORECTAL CANCER SCREENING,SEE MODIFIER due on 10/15/2016 DILATED RETINAL EXAM due on 02/05/2017 URINE ALBUMIN:CREATININE RATIO due on 06/02/2018 DIABETES MED ADHERENCE due on 06/25/2018 HBA1C due on 12/05/2018 DIABETIC FOOT EXAM due on 12/07/2018 ANNUAL PCP TEAM CHRONIC DISEASE VISIT due on 12/07/2018 LDL CHOLESTEROL due on 06/07/2019 BP CONTROLLED (<130/80) due on 06/09/2019 ADULT PREVNAR-13 Completed INFLUENZA Completed PNEUMOVAX AGE 65 AND OVER WITH 5YR LOOKBACK Completed Data reviewed Component Latest Ref Rng AND Units 06/02/2017 11/26/2017 04/26/2018 06/07/2018 WBC 3.70 - 11.00 k/uL 26.61 (HH) 19.70 (H) RBC 4.20 - 6.00 m/uL 4.54 (L) 5.39 HGB 13.7 - 17.5 g/dL 12.3 (L) Hematocrit 39.0 - 51.0 % 37.9 (L) 46.1 MCV 80.0 - 100.0 fL 83.5 85.5 MCH 26.0 - 34.0 pG 27.1 27.3 MCHC 30.5 - 36.0 g/dL 32.5 31.9 RDW 11.6 - 14.4 % 14.3 RDW-SD 36.1 - 45.8 fl 43.7 Platelet Count 150 - 400 k/uL 320 477 (H) MPV 9.0 - 12.7 fL 10.4 10.3 Seg Neutrophil % 86.9 Immature Grans % 0.60 Lymphocyte % 5.3 Monocyte % 7.0 Eosinophil % 0.0 Basophil % 0.2 Abs. Neut(Anc) 1.78 - 5.38 thou/cmm 23.12 (H) Immature Grans # 0.00 - 0.05 thou/cmm 0.16 (H) Abs. Lymph 0.84 - 2.85 thou/cmm 1.41 Abs. Sibley 0.30 - 0.82 thou/cmm 1.86 (H) Abs. Eosin 0.04 - 0.54 thou/cmm 0.00 (L) Abs. Baso 0.01 - 0.08 thou/cmm 0.05 Pathologist See below Hemoglobin 13.0 - 17.0 g/dL 14.7 RDW-CV 11.5 - 15.0 % 14.4 Neut% % 84.0 Abs Neut (ANC) 1.45 - 7.50 k/uL 16.54 (H) Lymph% % 9.0 Abs Lymph 1.00 - 4.00 k/uL 1.78 Sibley% % 6.2 Abs S[place]y <0.87 k/uL 1.22 (H) Eosin% % 0.4 Abs Eosin <0.46 k/uL 0.08 Baso% % 0.4 Abs Baso <0.11 k/uL 0.08 Nucleated Reds 0 /100 WBC 0.0 Absolute nRBC <0.01 k/uL <0.01 Diff Type Auto Diff Protein, Total 6.3 - 8.0 g/dL 7.4 6.9 Albumin 3.9 - 4.9 g/dL 4.4 4.2 Calcium 8.5 - 10.2 mg/dL 9.5 9.5 Bilirubin, Total 0.2 - 1.3 mg/dL 0.4 0.6 Alkaline Phosphatase 38 - 113 U/L 76 82 AST 14 - 40 U/L 15 10 (L) Glucose 74 - 99 mg/dL 115 (H) 165 (H) BUN 9 - 24 mg/dL 15 14 Creatinine 0.73 - 1.22 mg/dL 1.05 1.03 Sodium 136 - 144 mmol/L 138 135 (L) Potassium 3.7 - 5.1 mmol/L 4.1 4.2 Chloride 97 - 105 mmol/L 99 97 CO2 22 - 30 mmol/L 25 25 Anion Gap 9 - 18 mmol/L 14 13 ALT 10 - 54 U/L 18 12 eGFR- >60 >60 eGFR-All Other Races . >60 >60 Cholesterol, Total <200 mg/dL 169 138 Triglyceride <150 mg/dL 117 167 (H) HDL Cholesterol >39 mg/dL 35 (L) 34 (L) LDL Cholesterol <100 mg/dL 111 (H) 71 Non HDL Cholesterol <130 mg/dL 134 (H) 104 Fasting Time hrs 12 14 VLDL Cholesterol <30 mg/dL 23 33 (H) TC:HDL Ratio <5.10 4.83 4.06 LDL:HDL Ratio <2.54 3.17 (H) 2.09 Hemoglobin A1C 4.3 - 5.6 % 6.7 (H) 6.5 (H) Estimated Average Glucose mg/dL 146 140 A/P ASSESSMENT/PLAN: 1. Type 2 diabetes mellitus with retinopathy, with long-term current use of insulin, macular edema presence unspecified, unspecified laterality, unspecified retinopathy severity (HCC) - ICD9: 250.50, 362.01, V58.67, ICD10: E11.319, Z79.4 (primary diagnosis) Controlled. - Decrease Lantus to 25 units QPM - Daily Asprin therapy recommended - BP goal of <130/80 - LDL goal of <100 2. Diabetic eye exam (HCC) - ICD9: V72.0, 250.00, ICD10: Z01.00, E11.9 - Will get last eye report 3. Essential hypertension with goal blood pressure less than 130/85 - ICD9: 401.9, ICD10: I10 - Too low - Decrease amlodipine (Norvasc): stop it - Recommended regular aerobic exercise. - Recommend home blood pressure monitoring, to bring results in on next visit - Goal of BP <130/80 4. Mixed hyperlipidemia - ICD9: 272.2, ICD10: E78.2 - good control - Encouraged following a low fat, low cholesterol diet. - Discussed the benefits of regular aerobic exercise and weight loss. - Encouraged following a low carbohydrate, healthy oil intake diet. - Continue current therapy. 5. Benign non-nodular prostatic hyperplasia without lower urinary tract symptoms - ICD9: 600.90, ICD10: N40.0 - Clinically stable and does not seem to need the flomax. 6. Generalized arthritis - ICD9: 716.90, ICD10: M19.90 - Stable cont use of garvey 7. 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 Acute abdominal pain - ICD9: 789.00, 338.19, ICD10: R10.9 - Concern with recent surgery and elevated white blood count he need a STAT CT of the abdomen. Patient will be [facility]. Signed Prescriptions Disp Refills blood sugar diagnostic (ONETOUCH ULTRA TEST) test strip 150 Bottle 11 Sig: Test blood sugar 3-4 times per day. Dx: E11.139. Insulin Dep: Yes NANO: No F/u 4 weeks with Jordon for HTN check F/u 4 months routine check A1c, FLP BMP prior Time entering room was 1:37 PM and time leaving was 2:24 PM (total face to face time was 47 min) MD Delano Linares MD 06/09/2018 2:24 PM Addendum Decrease you lantus at night to 25 units. Stop the Norvasc (amilodipine) 2.5 mg please get fasting labs on or after 09/24/2018 prior to next visit. Referring Provider: DELANO EPPERSON [[id number]] Allergies As of Date: 06/09/2018 Noted Allergy Reaction [id number] REDUCTASE INHIBIT*11/16/2014 5 - Intolerance Comments: myalgia ZETIA (EZETIMIBE) 11/14/2016 17 - Myalgia Date Reviewed: 06/09/2018 Reviewed by: Delano Epperson - Fully Assessed Reason for Visit: Recheck [92] Cmt: 6 months Primary Visit Diagnosis:Type 2 diabetes mellitus with retinopathy, with long-term current use of insulin, macular edema presence unspecified, unspecified laterality, unspecified retinopathy severity (HCC) [E11.319, Z79.4] Other Visit Diagnoses:Diabetic eye exam (HCC) [Z01.00, E11.9] Essential hypertension with goal blood pressure less than 130/85 [I10] Mixed hyperlipidemia [E78.2] Benign non-nodular prostatic hyperplasia without lower urinary tract symptoms [N40.0] Generalized arthritis [M19.90] Idiopathic hypotension [I95.0] Acute abdominal pain [R10.9] Order(s):blood sugar diagnostic (ONETOUCH ULTRA TEST) test stripTest blood sugar 3-4 times per day. Dx: E11.139. Insulin Dep: YesDisp: 150 BottleRfl: 11 insulin glargine (LANTUS SOLOSTAR, BASAGLAR KWIKPEN) 100 unit/mL (3 mL) inpnInject 25 Units subcutaneously daily at bedtime.Disp: 15 PenRfl: 1 BASIC METABOLIC PNL [SQBMP] Order #: [id number] FUTURE HGB A1C [ESTVE1M] Order #: [id number] FUTURE LIPID PANEL, NONFASTING [SQLIPNF] Order #: [id number] FUTURE Prescriptions as of 06/09/2018 Sig: BLOOD SUGAR DIAGNOSTIC STRIPS Test blood sugar 3-4 times p* INSULIN GLARGINE (U-100) 100 * Inject 25 Units subcutaneousl* AMLODIPINE 2.5 MG TABLET Take 1 tablet by mouth once d* LISINOPRIL 20 MG-HYDROCHLOROT* Take 1 tablet by mouth once d* INSULIN ASPART U-100 100 UNI* Inject subcutaneously with fi* METFORMIN ER 500 MG TABLET,EX* Take 2 tablets by mouth twice* ASPIRIN 81 MG TABLET,DELAYED * Take 1 tablet by mouth once d* PEN NEEDLE, DIABETIC 32 GAUGE* Use one needle for each dose.* INSULIN SYRINGE U-100 WITH NE* Use daily as directed LANCETS Use as directed Problem List As Of Date 06/09/2018 Noted Resolved BENIGN HYPERTENSION [I10] 04/19/2007 Mixed hyperlipidemia [E78.2] TOBACCO USE DISORDER [F17.200] 11/11/2005 Primary localized osteoarthrosis, lower leg [M1* More... Patellar tendinitis [M76.50] Unspecified corneal disorder [H18.9] More... More... 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 Generalized arthritis [M19.90] INVALID FOR* PAIN JOINT, KNEE [M25.569] INVALID FOR* Statin intolerance [Z78.9] INVALID FOR* Well adult exam [Z00.00] INVALID FOR* More... Colon cancer screening [Z12.11] INVALID FOR* Essential hypertension with goal blood pressure*INVALID FOR* Disorder of prostate [N42.9] INVALID FOR* Type 2 diabetes mellitus with retinopathy, with*INVALID FOR* Benign non-nodular prostatic hyperplasia withou*INVALID FOR* Elevated prostate specific antigen (PSA) [R97.2*INVALID FOR* More... Diabetic eye exam (HCC) [Z01.00, E11.9] INVALID FOR* More... Medicare annual wellness visit, subsequent [Z00*INVALID FOR* More... Acute cholecystitis [K81.0] INVALID FOR*04/28/2018 Diverticulosis of colon [K57.30] History of smoking [Z87.891] More... Internal hemorrhoids [K64.8] Other instructions from your clinician: Decrease you lantus at night to 25 units. Stop the Norvasc (amilodipine) 2.5 mg please get fasting labs on or after 09/24/2018 prior to next visit. Prescriptions ordered this encounter Disp Refills Start End BLOOD SUGAR DIAGNOSTIC STRIPS 150 * 11 06/09/2018 Sig: Test blood sugar 3-4 times per day. Dx: E11.139. Insulin Dep: Yes INSULIN GLARGINE (U-100) 100 UNIT/ML* 15 P* 1 06/09/2018 Class: Med Update Route: SUBCUTANEOUS Sig: Inject 25 Units subcutaneously daily at bedtime. Medications Discontinued During This Encounter tamsulosin ER (FLOMAX) 0.4 mg cap 30 c* 0 04/28/2018 06/09/2018 Class: Print RX Route: ORAL Sig: Take 1 capsule by mouth once daily. Patient not taking: Reported on 05/13/2018 Disc: Discontinued by Patient blood sugar diagnostic(ONE TOUCH ULT* 150 11 01/14/2010 06/09/2018 Route: IN VITRO Sig: Test blood sugar 3-4 times per day. Dx: 250.00. Insulin Dep: Yes Disc: Reason for discontinue is not on file. insulin glargine (LANTUS SOLOSTAR, B* 15 P* 1 04/27/2018 06/09/2018 Route: SUBCUTANEOUS Sig: Inject 34 Units subcutaneously daily at bedtime. Disc: Adjust Sig - Block E-Cancel Disposition: Return in about 4 weeks (around 07/07/2018) for with jordon for HTN check. Follow-up and Disposition History Recorded Encounter Status:Closed by DELANO EPPERSON on 06/09/18 CBC AND DIFFERENTIAL Collected: 06/07/2018 Status: F Source: [place] 9:18 AM [facility] REPOSITORY TYPE CODE TESTS RESULT OUT OF REFERENCE UNITS RANGE LAB WBC 3.70-11.00 k/uL WBC High 19.70 LAB RBC 4.20-6.00 m/uL RBC 5.39 LAB HGB 13.0-17.0 g/dL Hemoglobin 14.7 LAB HCT 39.0-51.0 % Hematocrit 46.1 LAB MCV 80.0-100.0 fL MCV 85.5 LAB MCH 26.0-34.0 pG MCH 27.3 LAB MCHC 30.5-36.0 g/dL MCHC 31.9 LAB RDWCV 11.5-15.0 % RDW-CV 14.4 LAB PLTCT 150-400 k/uL Platelet High Count 477 LAB MPV 9.0-12.7 fL MPV 10.3 LAB ANEUT % Neut% 84.0 LAB AANEUT 1.45-7.50 k/uL Abs Neut High 16.54 LAB ALYMP % Lymph% 9.0 LAB AALYMP 1.00-4.00 k/uL Abs Lymph 1.78 LAB AMONO % Sibley% 6.2 LAB AAMONO <0.87 k/uL Abs S[place]y High 1.22 LAB AEOS % Eosin% 0.4 LAB AAEOS <0.46 k/uL Abs Eosin 0.08 LAB ABASO % Baso% 0.4 LAB AABASO <0.11 k/uL Abs Baso 0.08 LAB AUNRBC 0 /100 WBC NRBCs 0.0 LAB ABNRBC <0.01 k/uL Absolute nRBC <0.01 LAB DTYP DTYPE Auto Diff Performed By: #### CBCDIF, CMP, LIPB, HBA1C #### [facility] [address] [place], [place] [address] COMP METABOLIC PANEL Collected: 06/07/2018 Status: F Source: [place] 9:18 AM [facility] REPOSITORY TYPE CODE TESTS RESULT OUT OF REFERENCE UNITS RANGE LAB TP 6.3-8.0 g/dL Protein, Total 6.9 LAB ALB 3.9-4.9 g/dL Albumin 4.2 LAB CA 8.5-10.2 mg/dL Calcium, Total 9.5 LAB TBIL 0.2-1.3 mg/dL Bilirubin, Total 0.6 LAB ALKP 38-113 U/L Alkaline Phosphatase 82 LAB AST 14-40 U/L Low AST 10 LAB GLU 74-99 mg/dL Glucose High 165 Result Comment: The British Diabetes Association (ADA) provides guidance for cutoff values for fasting glucose and random glucose. The ADA defines fasting as no caloric intake for at least 8 hours. Fas ting plasma glucose results between 100 to 125 mg/dL indicate increased risk for diabetes (prediabetes). Fasting plasma glucose results greater than or equal to 126 mg/dL meet the criteria for diagnosis of diabetes. In the absence of unequivocal hyperglycemia, results should be confirmed by repeat testing. In a patient with classic symptoms of hyperglycemia or hyperglycemic crisis, random plasma glucose results greater than or equal to 200 mg/dL meet the criteria for diagnosis of diabetes. Reference: Standards of Medical Care in Diabetes 2016, British Diabetes Association. Diabetes Care. 2016.39(Suppl 1). LAB BUN 9-24 mg/dL BUN 14 LAB CRET 0.73-1.22 mg/dL Creatinine 1.03 LAB NA 136-144 mmol/L Sodium Low 135 LAB K 3.7-5.1 mmol/L Potassium 4.2 LAB CL 97-105 mmol/L Chloride 97 LAB CO2 22-30 mmol/L CO2 25 LAB AGAP 9-18 mmol/L Anion Gap 13 LAB ALT 10-54 U/L ALT 12 LAB GFRAA eGFR- Amer. >60 LAB GFRNAA . eGFR-All Other Races >60 Result Comment: eGFR (Estimated GFR) Units of measure: mL/min/1.73 meters squared eGFR is derived from the reexpressed MDRD Study equation using the following parameters: serum creatinine, age, gender and race. The creatinine assay has been calibrated to be traceable to IDMS. An eGFR <60 mL/min/1.73m2 for >3 months is consistent with chronic kidney disease. Refer to KDOQI guidelines for clinical interpretation. In patients with unstable renal function, e.g. those with acute kidney injury, the eGFR may not accurately reflect actual GFR. Performed By: #### CBCDIF, CMP, LIPB, HBA1C #### [facility] [address] [place] [id number] LIPID PANEL, BASIC Collected: 06/07/2018 Status: F Source: [place] 9:18 AM [facility] REPOSITORY TYPE CODE TESTS RESULT OUT OF REFERENCE UNITS RANGE LAB CHOL <200 mg/dL Cholesterol 138 Result Comment: <200 mg/dL, Desirable 200-239 mg/dL, Borderline high >239 mg/dL, High LAB TRIGLY <150 mg/dL Triglyceride High 167 Result Comment: <150 mg/dL, Normal 150-199 mg/dL, Borderline high 200-499 mg/dL, High >499 mg/dL, Very high LAB HDL >39 mg/dL HDL-Cholesterol Low 34 Result Comment: 40-59 mg/dL, Acceptable >59 mg/dL, High: Negative risk factor for coronary heart disease <40 mg/dL, Low: Positive risk factor for coronary heart disease LAB LDL <100 mg/dL LDL-Cholesterol 71 Result Comment: <100 mg/dL, Optimal 100-129 mg/dL, Near optimal/above optimal 130-159 mg/dL, Borderline high 160-189 mg/dL, High >189 mg/dL, Very high Secondary prevention optimal LDL Cholesterol levels are recommended to be < 70 mg/dL LAB NONHDL <130 mg/dL Non HDL Cholesterol 104 Result Comment: <130 mg/dL, Optimal 130-159 mg/dL, Near optimal/above optimal 160-189 mg/dL, Borderline high 190-219 mg/dL, High >219 mg/dL, Very high Secondary prevention optimal non HDL Cholesterol levels are recommended to be < 100 mg/dL LAB FT hrs Fasting Time 14 LAB VLDL <30 mg/dL High VLDL Cholesterol 33 LAB TCHDL <5.10 TC:HDL Ratio 4.06 LAB LDLHDL <2.54 LDL:HDL Ratio 2.09 Result Comment: Reference: 1. National Cholesterol Education Program ATP III Guideline At-A-Glance Quick Desk Reference: National Heart, Lung, and Blood Stow. National Institutes of Health. 2001: NIH Publication No. 01-3305. 2. An International Atherosclerosis Society position paper: global recommendations for the management of dyslipidemia: executive summary, Atherosclerosis. 2014: 232(2):410-413. Performed By: #### CBCDIF, CMP, LIPB, HBA1C #### [facility] [email or web address] [place], [place] [id number] HEMOGLOBIN A1C Collected: 06/07/2018 Status: F Source: [place] 9:18 AM [facility] REPOSITORY TYPE CODE TESTS RESULT OUT OF REFERENCE UNITS RANGE LAB HGBA1C 4.3-5.6 % High Hemoglobin A1c 6.5 Result Comment: British Diabetes Association guidelines indicate that patients with HgbA1c in the range 5.7-6.4% are at increased risk for development of diabetes, and intervention by lifestyle modification may be beneficial. HgbA1c greater or equal to 6.5% is considered diagnostic of diabetes. LAB HBA0 mg/dL Est. Average Glucose 140 Result Comment: eAG: (Estimated average glucose) is a calculated value from HgbA1c and is hostess party sales representative of the average blood glucose level in the last 2-3 month period. Performed By: #### CBCDIF, CMP, LIPB, HBA1C #### [facility] [email or web address] [place], [place] [address] CNOV Observed: 05/13/2018 Status: COMPLETED Source: [place] 3:15 PM [facility] OTHER CAMPUS REPOSITORY Office Visit (AGGENS5) LANNY OLIVIER ([id number]) 1940 M Date Time Provider Department 05/13/18 3:15 PM RAMONE LOVE5 During your visit today, we recorded the following information about you: Pulse Blood pressure Weight Height 76/minute 100/54 86.6 kg 1.778 m Ramone Love MD 05/13/2018 3:36 PM Signed Patient referred by: Delano Epperson MD [address] [facility] [id number] No chief complaint on file. HPI: Lanny is a 77 year old male status post left scopic cholecystectomy for gangrenous gallbladder on 04/27/2018. He said that he has been doing well he denies any nausea vomitingor constipation no fever or chills. He has been having diarrhea 2-3 times a day but denies any dehydration and says he can keep food down but is losing weight. 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 - Diverticulosis of colon (without mention of hemorrhage) - Essential hypertension, benign - Frostbite of foot 09/06/2010 - GENERAL OSTEOARTHROSIS 01/02/2009 Knees - History of smoking quit 2003 - Hyperplasia of prostate - Internal hemorrhoids without mention of complication - Other and unspecified hyperlipidemia - Patellar tendinitis 1994 - Primary localized osteoarthrosis, lower leg 1994 spurring left knee, calcified soft tissue - Type II or unspecified type diabetes mellitus without mention of complication, not stated as uncontrolled - 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 PAST SURGICAL HISTORY Procedure Laterality Date - 2D ECHO (EXEP) 06/25/2017 EF=60%, no valve issues - APPENDECTOMY 1966 - COLONOSCOP W/ OR W/O [facility] SPEC 10/15/06 repeat due 2016 - FECAL OCCULT BLOOD TEST 03/14/2016 Neg - REMV CATARACT EXTRACAP,INSERT LENS 2011 bilateral - REPAIR ING HERNIA,5+Y/O,REDUCIBL 1980 Hernia repair, inguinal: right FAMILY HISTORY Problem Relation Age of Onset - Stroke Father age 77 - Cancer Mother age 76 cancer stomach - Diabetes Brother age 62 - Coronary Artery Disease Brother age 42 Social History Marital status: Spouse name: Ronna Years of education: Number of children: 4 Occupational History 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 Social History Main Topics Smoking status: Former Smoker Packs/day: 1.00 Years: 40.00 Types: Cigarettes Smokeless tobacco: Never Used Comment: QUIT 2003 Alcohol use: No Drug use: No Sexual activity: Yes Partners with: Female Other Topics 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 aspirin, enteric coated (ASPIRIN, ENTERIC COATED) 81 mg EC tablet Take 1 tablet by mouth once daily. blood sugar diagnostic(ONE TOUCH ULTRA TEST STRIPS) Test blood sugar 3-4 times per day. Dx: 250.00. Insulin Dep: Yes insulin aspart U-100 (NOVOLOG FLEXPEN U-100 INSULIN) 100 unit/mL inpn Inject subcutaneously with first bite of food, 6 units w/ breakfast, lunch and dinner insulin glargine (LANTUS SOLOSTAR, BASAGLAR KWIKPEN) 100 unit/mL (3 mL) inpn Inject 34 Units subcutaneously daily at bedtime. Insulin [place], Disposable, (BD ULTRA-FINE MIAN PEN NEEDLES) 32 gauge x 5/32 ndle Use one needle for each dose. 4/day. Insulin Syringe-Needle U-100 (BD INSULIN SYRINGE ULTRA-FINE) 0.5 mL 31 gauge x 5/16 syrg Use daily as directed Lancets (ONE TOUCH ULTRASOFT LANCETS) [facility] [place] lancets Use as directed lisinopril-hydrochlorothiazide (PRINZIDE, ZESTORETIC) 20-25 mg per tablet Take 1 tablet by mouth once daily. metFORMIN ER (GLUCOPHAGE XR) 500 mg 24 hr tablet Take 2 tablets by mouth twice daily before meals. tamsulosin ER (FLOMAX) 0.4 mg cap Take 1 capsule by mouth once daily. No current facility-administered medications for this visit. ALLERGIES Allergen Reactions - Anvqdim-Uzt-Icy Red* Intolerance myalgia - Zetia [Ezetimibe] Myalgia REVIEW OF SYSTEMS: GENERAL: No weight loss, malaise or fevers GI: Negative for abdominal pain, nausea , vomiting, diarrhea, constipation and signs of jaundice Positive for none PHYSICAL EXAM: There were no vitals taken for this visit. GENERAL APPEARANCE: Well appearing, alert, in no acute distress, well-hydrated, well nourished.. ABDOMEN: Normal abdominal exam, Abdomen soft, non-tender. Bowel sounds normal. No masses, organomegaly, incisions are healing very well no signs of cellulitis or wound infection no signs of hernia NEURO: Alert, oriented x3, no asterixis, speech clear and articulate and BELLO DATA: Diagnostic tests reviewed for today's visit: Most recent labs Pathology report reviewed A total of 15 minutes was spent in direct patient contact.Greater than 50% of the direct patient contact time was spent in counseling or coordination of care. ASSESSMENT / PLAN 1. Status post laparoscopic cholecystectomy I spoke to him and made it clear that if he is not better by next week he should call the clinic and we will order a CT scan of the abdomen and pelvis to rule out intra-abdominal collection or abscess especially after a gangrenous gallbladder otherwise I will see him on a when necessary basis MD Ramone Joseph MD 05/13/2018 3:36 PM Addendum I'm sorry to hear that you are still having diarrhea since the surgery. Good to know that you are able to keep food down and you not getting dehydrated on the other hand if diarrhea isn't getting better by next week please let us know because we may need to order a CAT scan of the abdomen to rule out intra-abdominal infection after your kind gangrenous gallbladder. Please remember not to lift more than 15 pound for 3 weeks from surgery and 40 pound for 6 weeks from surgery. I will see on a when necessary basis Referring Provider: DELANO EPPERSON [[id number]] Allergies As of Date: 05/13/2018 Noted Allergy Reaction RCHOVSA-PRE-CHA REDUCTASE INHIBIT*11/16/2014 5 - Intolerance Comments: myalgia ZETIA (EZETIMIBE) 11/14/2016 17 - Myalgia Date Reviewed: 05/13/2018 Reviewed by: Ramone Love - Fully Assessed Reason for Visit: Surgical Follow Up [176] Cmt: cholecystectomy Primary Visit Diagnosis:Status post laparoscopic cholecystectomy [Z90.49] Prescriptions as of 05/13/2018 Sig: AMLODIPINE 2.5 MG TABLET Take 1 tablet by mouth once d* ASPIRIN 81 MG TABLET,DELAYED * Take 1 tablet by mouth once d* ONETOUCH ULTRA TEST STRIPS Test blood sugar 3-4 times p* INSULIN ASPART U-100 100 UNI* Inject subcutaneously with fi* INSULIN GLARGINE (U-100) 100 * Inject 34 Units subcutaneousl* PEN NEEDLE, DIABETIC 32 GAUGE* Use one needle for each dose.* INSULIN SYRINGE U-100 WITH NE* Use daily as directed LANCETS Use as directed LISINOPRIL 20 MG-HYDROCHLOROT* Take 1 tablet by mouth once d* METFORMIN ER 500 MG TABLET,EX* Take 2 tablets by mouth twice* TAMSULOSIN 0.4 MG CAPSULE Take 1 capsule by mouth once * Patient not taking: Reported on 05/13/2018 Problem List As Of Date 05/13/2018 Noted Resolved BENIGN HYPERTENSION [I10] 04/19/2007 Mixed hyperlipidemia [E78.2] TOBACCO USE DISORDER [F17.200] 11/11/2005 Primary localized osteoarthrosis, lower leg [M1* More... Patellar tendinitis [M76.50] Unspecified corneal disorder [H18.9] More... More... 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 Generalized osteoarthrosis, unspecified site [M*INVALID FOR* PAIN JOINT, KNEE [M25.569] INVALID FOR* Pernio [T69.1XXA] INVALID FOR* Statin intolerance [Z78.9] INVALID FOR* Well adult exam [Z00.00] INVALID FOR* More... Colon cancer screening [Z12.11] INVALID FOR* Essential hypertension with goal blood pressure*INVALID FOR* Disorder of prostate [N42.9] INVALID FOR* Type 2 diabetes mellitus with retinopathy, with*INVALID FOR* Benign non-nodular prostatic hyperplasia withou*INVALID FOR* Elevated prostate specific antigen (PSA) [R97.2*INVALID FOR* More... Diabetic eye exam (HCC) [Z01.00, E11.9] INVALID FOR* More... Medicare annual wellness visit, subsequent [Z00*INVALID FOR* More... Acute cholecystitis [K81.0] INVALID FOR*04/28/2018 Other instructions from your clinician: I'm sorry to hear that you are still having diarrhea since the surgery. Good to know that you are able to keep food down and you not getting dehydrated on the other hand if diarrhea isn't getting better by next week please let us know because we may need to order a CAT scan of the abdomen to rule out intra-abdominal infection after your kind gangrenous gallbladder. Please remember not to lift more than 15 pound for 3 weeks from surgery and 40 pound for 6 weeks from surgery. I will see on a when necessary basis Disposition: Return if symptoms worsen or fail to improve. Follow-up and Disposition History Recorded Encounter Status:Closed by RAMONE LOVE MD on 05/13/18 PROGRESS Observed: 05/13/2018 Status: COMPLETED Source: [place] 3:10 PM CLINIC OTHER CAMPUS REPOSITORY HNO ID: [id number] Author: Ramone Love Service: (none) Author Type: Physician Type: Progress Notes Filed: 05/13/2018 3:36 PM Note Text: Patient referred by: Delano Epperson MD [address] [facility] [address] No chief complaint on file. HPI: Lanny is a 77 year old male status post left scopic cholecystectomy for gangrenous gallbladder on 04/27/2018. He said that he has been doing well he denies any nausea vomitingor constipation no fever or chills. He has been having diarrhea 2-3 times a day but denies any dehydration and says he can keep food down but is losing weight. 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 - Diverticulosis of colon (without mention of hemorrhage) - Essential hypertension, benign - Frostbite of foot 09/06/2010 - GENERAL OSTEOARTHROSIS 01/02/2009 Knees - History of smoking quit 2003 - Hyperplasia of prostate - Internal hemorrhoids without mention of complication - Other and unspecified hyperlipidemia - Patellar tendinitis 1994 - Primary localized osteoarthrosis, lower leg 1994 spurring left knee, calcified soft tissue - Type II or unspecified type diabetes mellitus without mention of complication, not stated as uncontrolled - 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 PAST SURGICAL HISTORY Procedure Laterality Date - 2D ECHO (EXEP) 06/25/2017 EF=60%, no valve issues - APPENDECTOMY 1966 - COLONOSCOP W/ OR W/O BRSH SPEC 10/15/06 repeat due 2016 - FECAL OCCULT BLOOD TEST 03/14/2016 Neg - REMV CATARACT EXTRACAP,INSERT LENS 2011 bilateral - REPAIR ING HERNIA,5+Y/O,REDUCIBL 1981 Hernia repair, inguinal: right FAMILY HISTORY Problem Relation Age of Onset - Stroke Father age 77 - Cancer Mother age 76 cancer stomach - Diabetes Brother age 62 - Coronary Artery Disease Brother age 42 Social History Marital status: Spouse name: Ronna Years of education: Number of children: 4 Occupational History 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 Social History Main Topics Smoking status: Former Smoker Packs/day: 1.00 Years: 40.00 Types: Cigarettes Smokeless tobacco: Never Used Comment: QUIT 2003 Alcohol use: No Drug use: No Sexual activity: Yes Partners with: Female Other Topics Concern Yes Comment:Scancell [id number]: no foreign BLOOD TRANSFUSIONS No CAFFEINE Yes Comment:coffee 3 cups/d 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 aspirin, enteric coated (ASPIRIN, ENTERIC COATED) 81 mg EC tablet Take 1 tablet by mouth once daily. blood sugar diagnostic(ONE TOUCH ULTRA TEST STRIPS) Test blood sugar 3-4 times per day. Dx: 250.00. Insulin Dep: Yes insulin aspart U-100 (NOVOLOG FLEXPEN U-100 INSULIN) 100 unit/mL inpn Inject subcutaneously with first bite of food, 6 units w/ breakfast, lunch and dinner insulin glargine (LANTUS SOLOSTAR, BASAGLAR KWIKPEN) 100 unit/mL (3 mL) inpn Inject 34 Units subcutaneously daily at bedtime. Insulin [place], Disposable, (BD ULTRA-FINE MIAN PEN NEEDLES) 32 gauge x 5/32 ndle Use one needle for each dose. 4/day. Insulin Syringe-Needle U-100 (BD INSULIN SYRINGE ULTRA-FINE) 0.5 mL 31 gauge x 5/16 syrg Use daily as directed Lancets (ONE TOUCH ULTRASOFT LANCETS) [facility] [place] lancets Use as directed lisinopril-hydrochlorothiazide (PRINZIDE, ZESTORETIC) 20-25 mg per tablet Take 1 tablet by mouth once daily. metFORMIN ER (GLUCOPHAGE XR) 500 mg 24 hr tablet Take 2 tablets by mouth twice daily before meals. tamsulosin ER (FLOMAX) 0.4 mg cap Take 1 capsule by mouth once daily. No current facility-administered medications for this visit. ALLERGIES Allergen Reactions - Ckumvgc-Ren-Jaw Red* Intolerance myalgia - Zetia [Ezetimibe] Myalgia REVIEW OF SYSTEMS: GENERAL: No weight loss, malaise or fevers GI: Negative for abdominal pain, nausea , vomiting, diarrhea, constipation and signs of jaundice Positive for none PHYSICAL EXAM: There were no vitals taken for this visit. GENERAL APPEARANCE: Well appearing, alert, in no acute distress, well-hydrated, well nourished.. ABDOMEN: Normal abdominal exam, Abdomen soft, non-tender. Bowel sounds normal. No masses, organomegaly, incisions are healing very well no signs of cellulitis or wound infection no signs of hernia NEURO: Alert, oriented x3, no asterixis, speech clear and articulate and BELLO DATA: Diagnostic tests reviewed for today's visit: Most recent labs Pathology report reviewed A total of 15 minutes was spent in direct patient contact.Greater than 50% of the direct patient contact time was spent in counseling or coordination of care. ASSESSMENT / PLAN 1. Status post laparoscopic cholecystectomy I spoke to him and made it clear that if he is not better by next week he should call the clinic and we will order a CT scan of the abdomen and pelvis to rule out intra-abdominal collection or abscess especially after a gangrenous gallbladder otherwise I will see him on a when necessary basis MD COLEMAN Joseph Observed: 04/30/2018 Status: COMPLETED Source: [place] 12:00 AM CLINIC OTHER CAMPUS REPOSITORY Telephone (AKPRAD) LANNY OLIVIER ([id number]) 1940 M Date Time Provider Department 04/30/18 ALEKSANDRA ROBERTSON (VI) ANN During your visit today, we recorded the following information about you: Aleksandra Robertson APRN.CNP 04/30/2018 6:07 PM Signed Spoke with Mr. Olivier who states he is doing okay post discharge day two. Reports having some pain but is taking is pain medication. Reports tolerating diet and is maintaining a morales catheter without difficulty. Discharge instructions reviewed including but limited to diet, activity, restrictions, pain control, signs/symtoms of infection and incisional care. He states he has follow up visits scheduled with urology and surgery already. Aleksandra Robertson APRN.CNP Allergies As of Date: 04/30/2018 Noted Allergy Reaction [id number] REDUCTASE INHIBIT*11/16/2014 5 - Intolerance Comments: myalgia ZETIA (EZETIMIBE) 11/14/2016 17 - Myalgia Date Reviewed: 04/27/2018 Reviewed by: Nimisha (Rn) TYRESE Huggins - Fully Assessed Reason for Visit: Post Op discharge Call [Other] Prescriptions as of 04/30/2018 Sig: TAMSULOSIN 0.4 MG CAPSULE Take 1 capsule by mouth once * OXYCODONE 5 MG TABLET Take 1 tablet by mouth every * AMOXICILLIN 875 MG-POTASSIUM * Take 1 tablet by mouth every * INSULIN GLARGINE (U-100) 100 * Inject 34 Units subcutaneousl* AMLODIPINE 2.5 MG TABLET Take 1 tablet by mouth once d* LISINOPRIL 20 MG-HYDROCHLOROT* Take 1 tablet by mouth once d* INSULIN ASPART U-100 100 UNI* Inject subcutaneously with fi* ASPIRIN 81 MG TABLET,DELAYED * Take 1 tablet by mouth once d* METFORMIN ER 500 MG TABLET,EX* Take 2 tablets by mouth twice* PEN NEEDLE, DIABETIC 32 GAUGE* Use one needle for each dose.* INSULIN SYRINGE U-100 WITH NE* Use daily as directed LANCETS Use as directed [facility] ULTRA TEST STRIPS Test blood sugar 3-4 times p* Problem List As Of Date 04/30/2018 Noted Resolved BENIGN HYPERTENSION [I10] 04/19/2007 Mixed hyperlipidemia [E78.2] TOBACCO USE DISORDER [F17.200] 11/11/2005 Primary localized osteoarthrosis, lower leg [M1* More... Patellar tendinitis [M76.50] Unspecified corneal disorder [H18.9] More... More... 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 Generalized osteoarthrosis, unspecified site [M*INVALID FOR* PAIN JOINT, KNEE [M25.569] INVALID FOR* Pernio [T69.1XXA] INVALID FOR* Statin intolerance [Z78.9] INVALID FOR* Well adult exam [Z00.00] INVALID FOR* More... Colon cancer screening [Z12.11] INVALID FOR* Essential hypertension with goal blood pressure*INVALID FOR* Disorder of prostate [N42.9] INVALID FOR* Type 2 diabetes mellitus with retinopathy, with*INVALID FOR* Benign non-nodular prostatic hyperplasia withou*INVALID FOR* Elevated prostate specific antigen (PSA) [R97.2*INVALID FOR* More... Diabetic eye exam (HCC) [Z01.00, E11.9] INVALID FOR* More... Medicare annual wellness visit, subsequent [Z00*INVALID FOR* More... Acute cholecystitis [K81.0] INVALID FOR*04/28/2018 Encounter Status:Closed by ALEKSANDRA ROBERTSON CNP on 04/30/18 12 LEAD ELECTROCARDIOGRAM Observed: 04/29/2018 Status: F Source: [place] 1:29 PM [facility] REPOSITORY [facility] Cardiovascular Services [address] [place] [id number] 12 Lead EKG 04/26/18 1350 MR#: [id number] Acct: [id number] Name: LANNY OLIVIER Wanda Rep #: [id number] : 1940 77 From: Vinny Mao MD Attending Dr: Status: REG ER Ordering Dr: Shavon Parker MD Date: 04/26/18 Location: ED Sex: M C Admitted: Test Reason : ABD PAIN Blood Pressure : / mmHG Vent. Rate : 088 BPM Atrial Rate : 088 BPM P-R Int : 194 ms QRS Dur : 122 ms QT Int : 380 ms P-R-T Axes : -23 -22 015 degrees QTc Int : 459 ms Normal sinus rhythm Right bundle branch block Abnormal ECG Confirmed by CAMI FINNEGAN, VINNY ([id number]), avid editor KOTA WANG ([id number]) on 04/29/2018 1:29:08 PM Referred By: ОЛЬГА Confirmed By:VINNY MAO MD 04/29/18 1329 Date Vinny Mao MD CC: MD Miguel Parker; Delano Epperson MD Signed CNPN Observed: 04/29/2018 Status: COMPLETED Source: [place] 12:00 AM CLINIC OTHER CAMPUS REPOSITORY Telephone (AKPRAD) LANNY OLIVIER ([id number]) 1940 M Date Time Provider Department 04/29/18 ALEKSANDRA ROBERTSON (VI) ANN During your visit today, we recorded the following information about you: Aleksandra Robertson APRN.CNP 04/29/2018 5:24 PM Signed Attempt to call patient at home number listed in [facility]. Voice message left on answering machine. Aleksandra Robertson APRN.CNP Pager: [phone] Allergies As of Date: 04/29/2018 Noted Allergy Reaction NCSDEIA-JZF-QRH REDUCTASE INHIBIT*11/16/2014 5 - Intolerance Comments: myalgia ZETIA (EZETIMIBE) 11/14/2016 17 - Myalgia Date Reviewed: 04/27/2018 Reviewed by: Nimisha (Rn) TYRESE Huggins - Fully Assessed Reason for Visit: Post op discharge call [Other] Prescriptions as of 04/29/2018 Sig: TAMSULOSIN 0.4 MG CAPSULE Take 1 capsule by mouth once * OXYCODONE 5 MG TABLET Take 1 tablet by mouth every * AMOXICILLIN 875 MG-POTASSIUM * Take 1 tablet by mouth every * INSULIN GLARGINE (U-100) 100 * Inject 34 Units subcutaneousl* AMLODIPINE 2.5 MG TABLET Take 1 tablet by mouth once d* LISINOPRIL 20 MG-HYDROCHLOROT* Take 1 tablet by mouth once d* INSULIN ASPART U-100 100 UNI* Inject subcutaneously with fi* ASPIRIN 81 MG TABLET,DELAYED * Take 1 tablet by mouth once d* METFORMIN ER 500 MG TABLET,EX* Take 2 tablets by mouth twice* PEN NEEDLE, DIABETIC 32 GAUGE* Use one needle for each dose.* INSULIN SYRINGE U-100 WITH NE* Use daily as directed LANCETS Use as directed [facility] ULTRA TEST STRIPS Test blood sugar 3-4 times p* Problem List As Of Date 04/29/2018 Noted Resolved BENIGN HYPERTENSION [I10] 04/19/2007 Mixed hyperlipidemia [E78.2] TOBACCO USE DISORDER [F17.200] 11/11/2005 Primary localized osteoarthrosis, lower leg [M1* More... Patellar tendinitis [M76.50] Unspecified corneal disorder [H18.9] More... More... 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 Generalized osteoarthrosis, unspecified site [M*INVALID FOR* PAIN JOINT, KNEE [M25.569] INVALID FOR* Pernio [T69.1XXA] INVALID FOR* Statin intolerance [Z78.9] INVALID FOR* Well adult exam [Z00.00] INVALID FOR* More... Colon cancer screening [Z12.11] INVALID FOR* Essential hypertension with goal blood pressure*INVALID FOR* Disorder of prostate [N42.9] INVALID FOR* Type 2 diabetes mellitus with retinopathy, with*INVALID FOR* Benign non-nodular prostatic hyperplasia withou*INVALID FOR* Elevated prostate specific antigen (PSA) [R97.2*INVALID FOR* More... Diabetic eye exam (HCC) [Z01.00, E11.9] INVALID FOR* More... Medicare annual wellness visit, subsequent [Z00*INVALID FOR* More... Acute cholecystitis [K81.0] INVALID FOR*04/28/2018 Encounter Status:Closed by ALEKSANDRA ROBERTSON CNP on 04/29/18 CNDS Observed: 04/28/2018 Status: COMPLETED Source: [place] 3:31 PM CLINIC OTHER CAMPUS REPOSITORY O ID: [id number] Author: Neva Moreland (Cns) Service: General Surgery Author Type: Nurse Specialist Type: Discharge Summaries Filed: 04/28/2018 3:34 PM Note Text: DISCHARGE SUMMARY PATIENT NAME: Lanny Olivier Code Status: Not on file Highest Readmission Risk Score: 17 The 30 day readmissions risk score is derived from an internally validated risk model which evaluates patient level characteristics, utilization history, medication orders and lab results up until the day of discharge. Patients with a score of 40 or above are considered highest risk for readmission. Specific patient level drivers will be listed at the bottom of the summary. Admission Information Admission Information ADMIT DATE: 04/26/2018 DISCHARGE DATE: 04/28/2018 MY DOCTORS AND MEDICAL TEAM: My Main Hospital Doctor: Binta Cabrales Primary Care Provider: Delano Epperson MD My Medical Team Members: Treatment Team: Attending Provider: Binta Cabrales MY CONDITION AT DISCHARGE: Stable REASON I WAS IN THE HOSPITAL: Acute cholecystitis SUMMARY OF WHAT HAPPENED WHILE I WAS IN THE HOSPITAL: 77 year old male presented as a transfer from [facility] with RUQ pain x 2 days that worsened day of admission. His pain worsens with eating and he reported some episodes of n/v 3 days ago. Exam and imaging were consistent with acute cholecystitis with cholelithiasis. He was admitted for monitoring and treatment on the surgical floor. After discussion of risks/benefits patient elected to proceed with surgery. Post operatively, he was monitored and treated on the surgical floor. Overnight he experienced acute urinary retention requiring straight catheterization, subsequent placement of morales catheter and Urology consult was obtained. Patient is stable for discharge home today with morales catheter. Will need to follow up with Dr Gamez in 1 week for voiding trial and Dr Love in 2 weeks for post-op check. OTHER PROBLEMS/DIAGNOSIS: Active Problems: Acute cholecystitis Resolved Problems: * No resolved hospital problems. * OPERATIONS PERFORMED WHILE IN THE HOSPITAL: Laparoscopic cholecystectomy IMPORTANT TEST/PROCEDURES: No procedures performed TEST RESULTS NOT AVAILABLE AT THIS TIME: Pathology results Discharge Disposition Discharge Disposition: Home With Self Care Activity When You Leave the Hospital Lifting is restricted to: 15 pounds for 2 weeks May bathe and shower Avoid tub baths for 2 weeks May use stairs No prolonged bedrest, longer than 8 hours in a 24 hour period No walking restrictions Diet Instructions Diabetic Drink 6 to 8 glasses of fluids per day Resume your pre-hospital diet For Pain When You Leave the Hospital If you become constipated, you may use any zpks-tnd-trgepom treatment such as Milk of Magnesia, Sennakot, Prune Juice, Suppositories, etc. in addition to the stool softener/fiber supplement No alcohol or driving while on pain medication Use acetaminophen (Tylenol) as recommended on the bottle Use ibuprofen (Motrin, Advil) as recommended on the bottle Use the dispensed medication (see prescription) Wound/Surgical Site Care It is normal to have swelling, mild bruising, blood on the steri-strips, numbness and firmness around the incision Leave open to air Steri strips can get wet. Let them fall off or remove in: 2 weeks Wash your hands frequently, especially before touching your incision, after using restroom and before eating Your incision has skin glue. It will peel off on its own. It can get wet Call Your Doctor If Other: Home with morales catheter, follow up with Dr Glover in 1 week. There is an unusual odor from the wound area There is severe pain at the operative site You have persistent nausea/vomiting over 24 hours You have redness, swelling, pus or drainage from the wound Your temperature is greater than 101F Follow Up Appointments Follow-Up Appointment When: In 2 weeks Patient/Parents to call for appointment?: Yes Ramone Love [phone] [address] [facility] [address] [facility] [address] PCP Requested Referral Follow-Up Appointment With: PCP as needed When: In: Patient/Parents to call for appointment?: Yes Follow-Up Appointment For voiding trial When: In 1 week Patient/Parents to call for appointment?: Yes Cheo Glover Jr. [phone] [place] [address] PCP Requested Referral Additional Provider to Provider Information: No notes on file Transitions of Care Critical Issues: SPECIALIST FOLLOW-UP: Dr Love, Dr Gamez LABS AND PROCEDURES PENDING AT DISCHARGE: Pathology Results (to be discussed at office visit) FOLLOW-UP APPOINTMENTS ALREADY SCHEDULED WITH [facility] PROVID[facility]: Future Appointments Date Time Provider Department Center 06/09/2018 1:20 PM Delano Pineda Zeenat [facility] ALLERGIES Allergen Reactions - Xzbfyly-Vov-Jms Red* Intolerance myalgia - Zetia [Ezetimibe] Myalgia DISCHARGE MEDICATION: Current Discharge Medication List START taking these medications tamsulosin ER (FLOMAX) 0.4 mg Take 0.4 mg by mouth once daily. Qty: 30 capsule Refills: 0 oxyCODONE IR (ROXICODONE) 5 mg Take 5 mg by mouth every 6 hours as needed for Pain. Earliest Fill Date: 04/28/18 Qty: 20 tablet Refills: 0 Associated Diagnoses:Acute cholecystitis; S/P laparoscopic cholecystectomy amoxicillin-clavulanic acid (AUGMENTIN) 875 mg Take 875 mg by mouth every 12 hours. Qty: 8 tablet Refills: 0 CONTINUE these medications which have NOT CHANGED amLODIPine (NORVASC) 2.5 mg Take 2.5 mg by mouth once daily. Qty: 90 tablet Refills: 1 lisinopril-hydrochlorothiazide (PRINZIDE, ZESTORETIC) 1 tablet Take 1 tablet by mouth once daily. Qty: 90 tablet Refills: 1 insulin aspart U-100 (NOVOLOG FLEXPEN U-100 INSULIN) 100 unit/mL inpn Inject subcutaneously with first bite of food, 6 units w/ breakfast, lunch and dinner Qty: 15 mL Refills: 2 Associated Diagnoses:Insulin dependent diabetes mellitus (HCC) aspirin, enteric coated (ASPIRIN, ENTERIC COATED) 81 mg Take 81 mg by mouth once daily. metFORMIN ER (GLUCOPHAGE XR) 1,000 mg Take 1,000 mg by mouth twice daily before meals. Qty: 360 tablet Refills: 3 insulin glargine (LANTUS SOLOSTAR, BASAGLAR KWIKPEN) 34 Units Inject 34 Units subcutaneously daily at bedtime. Qty: 15 Pen Refills: 1 Insulin [place], Disposable, (BD ULTRA-FINE MIAN PEN NEEDLES) 32 gauge x 5/32 ndle Use one needle for each dose. 4/day. Qty: 360 Each Refills: 3 Insulin Syringe-Needle U-100 (BD INSULIN SYRINGE ULTRA-FINE) 0.5 mL 31 gauge x 5/16 syrg Use daily as directed Qty: 100 Syringe Refills: 3 Lancets (ONE TOUCH ULTRASOFT LANCETS) [facility] [place] lancets Use as directed Qty: 100 Each Refills: 2 blood sugar diagnostic(ONE TOUCH ULTRA TEST STRIPS) Test blood sugar 3-4 times per day. Dx: 250.00. Insulin Dep: Yes Qty: 150 Refills: 11 Associated Diagnoses:Type II or unspecified type diabetes mellitus without mention of complication, uncontrolled Exam: GENERAL: No distress, Alert NEURO: AANDOx3, CN II-XII grossly intact HEENT: normocephalic, atraumatic LUNGS: Unlabored breathing on room air, breath sounds clear CARDIAC: Regular rate and rhythm as above ABDOMEN: Soft,RUQ and incisional TTP, non-distended with bowel sounds EXTREMITIES: BELLO, No deformities, No edema, PPP SKIN: Skin color, texture, turgor normal The patient's risk for 30-day readmission is determined using the following contributing factors: Pt variables contributing to increased readmission risk: 20 Active Medication Orders 15 Most Recent BUN Result 7.8 First Resulted Calcium During Admission 1 Insurance - Medicare 1 Discharge Disposition - Home 1 Active Anticoagulant TIME OF CARE: Discharge Management: I personally spent greater than 30 minutes involved in the discharge management of this patient. SIGNATURE: Neva Moreland APRN.[facility] PAGER/CONTACT #: [id number] DATE: April 28, 2018 TIME: 3:32 PM URINALYSIS ROUTINE Collected: 04/28/2018 Status: F Source: [facility] 2:58 PM HEALTH SYSTEM REPOSITORY TYPE CODE TESTS RESULT OUT OF RANGE REFERENCE UNITS LAB COLOR(LOIN C) Urine Color YELLOW LAB APPUR(LOIN C) Urine Appearance CLEAR LAB GLUUR(LOIN Negative mg/dL C) Abnormal Glucose Urine 500 LAB KETON(LOIN Negative mg/dL C) Ketone Urine NEGATIVE LAB HGBUR(LOIN Negative C) Abnormal Hemoglobin,Urin SMALL e LAB PROTU(LOIN Negative mg/dL C) Protein Urine NEGATIVE LAB NITRI(LOIN Negative C) Nitrites Urine NEGATIVE LAB BILIU(LOIN Negative C) Bilirubin Urine NEGATIVE LAB SPG(LOINC) 1.005-1.030 Specific 1.016 [place], Ur LAB PHUR(LOINC 5.0-8.0 ) pH,Urine 6.0 LAB UROBI(LOIN 0.0-1.0 EU/dL C) Urobilinogen,Ur 1.0 LAB LEUKO(LOIN Negative C) Leukocytes NEGATIVE Esterase LAB RBCU1(LOIN 0.0-5.0 /hpf C) RBC,Urine 4.5 LAB WBCU1(LOIN 0.0-5.0 /hpf C) WBC, Urine 0.8 LAB EPIT1(LOIN 0.0-5.0 /hpf C) Ep Cells Urine 0.4 LAB BACT1(LOIN None C) Bacteria Urine NONE LAB HYCA1(LOIN 0.0-1.0 /lpf C) Hyaline Cast 0.0 Performed By: #### URIN2 #### [facility] [address] [address] Observed: 04/28/2018 Status: F Source: [facility] URINE 2:15 PM HEALTH SYSTEM REPOSITORY Test performed at [facility] <10,000 CFU/ml gram positive organisms cultured. No further identification or susceptibility testing will be performed. Plates will be held for 5 days. Performed By: #### C_URI #### [facility] [address] [address] CONSULT Observed: 04/28/2018 Status: COMPLETED Source: [place] 2:07 PM CLINIC OTHER CAMPUS REPOSITORY HNO ID: [id number] Author: Kenji (ResNorris Alegre MD Service: Urology Author Type: Resident Type: Consults Filed: 04/28/2018 3:43 PM Note Text: Attestation signed by Cheo Glover Jr. at 04/29/2018 10:27 AM Discussed with the resident and agree with resident's findings and plan as documented in the resident's note. Cheo Glover Jr, MD Urology Inpatient Consultation 04/26/2018 HISTORY OF PRESENT ILLNESS: The patient is a 77 year old male not known to urology who developed urinary retention on POD1 from laparoscopic cholecystectomy. Patient was unable to void after surgery and was straight cathed x2 for 675 mL and 900mL. Today patient still unable to void and was bladder scanned for ~800mL. A 16F coude catheter was inserted for 750mL clear yellow urine. Patient denies any urologic history. He denies fevers, chills, n/v, flank pain, dysuria, or hematuria. 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 - Diverticulosis of colon (without mention of hemorrhage) - Essential hypertension, benign - Frostbite of foot 09/06/2010 - GENERAL OSTEOARTHROSIS 01/02/2009 Knees - History of smoking quit 2003 - Hyperplasia of prostate - Internal hemorrhoids without mention of complication - Other and unspecified hyperlipidemia - Patellar tendinitis 1994 - Primary localized osteoarthrosis, lower leg 1994 spurring left knee, calcified soft tissue - Type II or unspecified type diabetes mellitus without mention of complication, not stated as uncontrolled - 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 Disp: 90 tablet Rfl: 1 lisinopril-hydrochlorothiazide (PRINZIDE, ZESTORETIC) 20-25 mg per tablet Take 1 tablet by mouth once daily. Disp: 90 tablet Rfl: 1 insulin aspart U-100 (NOVOLOG FLEXPEN U-100 INSULIN) 100 unit/mL inpn Inject subcutaneously with first bite of food, 6 units w/ breakfast, lunch and dinner Disp: 15 mL Rfl: 2 aspirin, enteric coated (ASPIRIN, ENTERIC COATED) 81 mg EC tablet Take 1 tablet by mouth once daily. Disp: Rfl: metFORMIN ER (GLUCOPHAGE XR) 500 mg 24 hr tablet Take 2 tablets by mouth twice daily before meals. Disp: 360 tablet Rfl: 3 Insulin [place], Disposable, (BD ULTRA-FINE MIAN PEN NEEDLES) 32 gauge x 5/32 ndle Use one needle for each dose. 4/day. Disp: 360 Each Rfl: 3 Insulin Syringe-Needle U-100 (BD INSULIN SYRINGE ULTRA-FINE) 0.5 mL 31 gauge x 5/16 syrg Use daily as directed Disp: 100 Syringe Rfl: 3 Lancets (ONE TOUCH ULTRASOFT LANCETS) Misc lancets Use as directed Disp: 100 Each Rfl: 2 blood sugar diagnostic(ONE TOUCH ULTRA TEST STRIPS) Test blood sugar 3-4 times per day. Dx: 250.00. Insulin Dep: Yes Disp: 150 Rfl: 11 FAMILY HISTORY: Family History Problem Relation Age of Onset - Stroke Father age 77 - Cancer Mother age 76 cancer stomach - Diabetes Brother age 62 - Coronary Artery Disease Brother age 42 Social History: Tobacco Use: 1 packs/day, for 40 years. Types: Cigarettes (QUIT 2003) Alcohol Use: No ROS: Constitutional: negative for chills and fevers HEENT: no blurry vision or eye redness Respiratory: negative for hemoptysis and shortness of breath Cardiovascular: negative for dyspnea and syncope Gastrointestinal: negative for jaundice, nausea and vomiting, +abdominal tenderness from operation Genitourinary:negative for dysuria and hematuria, +retention Hematologic/lymphatic: negative for bleeding Integumentary: no new bruises or lesions Musculoskeletal:negative for muscle weakness Neurological: negative for coordination problems and seizures All other systems negative PHYSICAL EXAM: VITALS: 04/27/18 2300 04/28/18 0330 04/28/18 0800 04/28/18 1132 BP: 128/51 121/58 143/52 146/57 Pulse: 75 72 76 70 Resp: Temp: (!) 35.8 ?C (96.4 ?F) (!) 35.8 ?C (96.4 ?F) 36.4 ?C (97.5 ?F) 36.2 ?C (97.2 ?F) TempSrc: Temporal Artery Temporal Artery Temporal Artery Temporal Artery SpO2: 93% 93% 94% 95% Weight: Height: General: Alert, in no acute distress Head: Normocephalic, atraumatic Neck: supple, trachea is midline, no obvious masses Respiratory: normal effort, no audible wheezes Cardiovascular: regular pulse and no cyanosis Musculoskeletal: moving all extremities, normal tone Skin: warm and dry Psych: normal mood and affect, oriented Abdomen: soft, appropriately tender to palpation, incisions c/d/i, no organomegaly, no hernias : 16F coude catheter draining clear yellow urine, no sp or cva tenderness DATA: LABS: BMP: . Glucose (mg/dL) Date Value 04/28/2018 253 Potassium (mEq/L) Date Value 04/28/2018 3.4 Sodium (mEq/L) Date Value 04/28/2018 136 Chloride (mEq/L) Date Value 04/28/2018 103 CO2 (mEq/L) Date Value 04/28/2018 26 Creatinine (mg/dL) Date Value 04/28/2018 1.18 BUN (mg/dL) Date Value 04/28/2018 15 Anion Gap (no units) Date Value 04/28/2018 10 Calcium (mg/dL) Date Value 04/28/2018 7.9 CBC: HGB (g/dL) Date Value 04/28/2018 12.1 Hematocrit (%) Date Value 04/28/2018 37.2 WBC (thou/cmm) Date Value 04/28/2018 11.37 Platelet Count (thou/cmm) Date Value 04/28/2018 326 Urinalysis: Specific [place], Ur Date Value Ref Range Status 06/02/2017 1.016 1.005 - 1.030 Final Glucose, Urine Date Value Ref Range Status 06/02/2017 Negative Negative mg/dL Final Bilirubin, Urine Date Value Ref Range Status 06/02/2017 Negative Negative Final Ketones, Urine Date Value Ref Range Status 06/02/2017 Negative Negative Final Hemoglobin/Blood,Ur Date Value Ref Range Status 06/02/2017 Negative Negative Final Protein, Urine Date Value Ref Range Status 06/02/2017 Negative Negative mg/dL Final Nitrites Date Value Ref Range Status 06/02/2017 Negative Negative Final WBC, Urine Date Value Ref Range Status 06/02/2017 0-5 0 - 5 /HPF Final Urine Culture: pending RADIOLOGY: Abdomen/Pelvis CT 04/26/18 13:28 (imaging from outside hospital, read only, unable to view actual images and urinary tract) IMPRESSION: Inflammatory changes seen in the gallbladder fossa with gallbladder wall thickening and pericholecystic fluid. Correlation with ultrasound is recommended for further evaluation. Diffuse circumferential wall thickening of the hepatic flexure. IMPRESSION: 77 year old male with AUR (750mL) PLAN: - ok for discharge from urology perspective - flomax - check u/a and urine culture - morales catheter to straight drain - Bowel regimen per primary service - Outpatient follow up with Dr. Glover for catheter removal and void trial Thank you for allowing me to participate in the care of your patient Kenji Alegre MD Urology, PGY-1 April 28, 2018 2:13 PM Pager: [phone] GLUCOSE METER Collected: 04/28/2018 Status: F Source: [facility] 11:32 AM HEALTH SYSTEM REPOSITORY TYPE CODE TESTS RESULT OUT OF REFERENCE UNITS RANGE LAB GLUBL(LOINC 70-99 mg/dL ) High Glucose Meter 300 Result Comment: RN NOTIFIED Performed By: #### GLMET #### [place] [address] CASE MANAGEM Observed: 04/28/2018 Status: COMPLETED Source: [facility] 8:05 AM CLINIC OTHER CAMPUS REPOSITORY HNO ID: [id number] Author: Ching (Rn) TYRESE Hidalgo Service: Care Management Author Type: Registered Nurse Type: Care Mgt Progress Note Filed: 04/28/2018 8:06 AM Note Text: CARE MANAGEMENT PROGRESS NOTE SERVICE DATE: 04/28/2018 SERVICE TIME: 8:05 AM LOS: 2 days Needs Prior to Discharge: To Be Determined Chart reviewed. Patient independent at home with his spouse prior to admission. Patient hopeful to return home at discharge. Will follow clinical course for DC planning needs. SIGNATURE: Ching Hidalgo RN PATIENT NAME: Lanny Olivier DATE: April 28, 2018 TIME: 8:05 AM PAGER/CONTACT #: [phone] PROGRESS Observed: 04/28/2018 Status: COMPLETED Source: [facility] 6:08 AM [facility] HNO ID: [id number] Author: Neva Espinoza) Aniceto Service: General Surgery Author Type: Nurse Specialist Type: Progress Notes Filed: 04/28/2018 10:58 AM Note Text: Emergency General Surgery Progress Note SERVICE DATE: 04/28/2018 TIME: 0645 SUBJECTIVE: Unable to void post-op, straight cath x2. (10p for 675 ml, 6:30a for 900 ml). Tolerating diet DIET REGULAR Nausea No Emesis No Flatus Yes Bowel movement No Pain Controlled Yes Ambulating Yes OBJECTIVE: Vitals: Temp (24hrs), Av.4 ?C (97.6 ?F), Min:35.8 ?C (96.4 ?F), Max:37.6 ?C (99.7 ?F) BP 121/58 Pulse 72 Temp (!) 35.8 ?C (96.4 ?F) (Temporal Artery) Resp 18 Ht 179.1 cm (5' 10.5) Wt 88.5 kg (195 lb) SpO2 93% BMI 27.58 kg/m? O2 Therapy: Room Air IANDO: Date 04/27/18699 - 04/28/1865804/28/18699 - 04/29/1859 Shift 7920-4450 9980-4834 6956-0519 24 Hour Total 9632-0569 5046-1311 2893-6926 24 Hour Total I N T A K E PO 120 120 PO 120 120 IV 1200 1000 1100 3300 D5 LR 1000 1000 2000 Zosyn IV 100 100 OR Crystalloid intake (mL) 1200 1200 Shift Total 1200 1120 1100 3420 O U T P U T Urine 443 604 1467 Straight cath (ml) 675 675 OR Urine Output 600 600 Blood 75 75 Estimated Blood loss 75 75 Shift Total 551 378 8572 Weight (kg) 88.5 88.5 88.5 88.5 88.5 88.5 88.5 88.5 MEDICATIONS Current Facility-Administered Medications: oxyCODONE IR 5-10 mg tab(s) (ROXICODONE) 5-10 mg ORAL q 6 H PRN influenza vaccine 180 mcg (Patients 65 years and older) (PF) (FLUZONE HIGH DOSE ) 0.5 mL INTRAMUSCULAR ONCE (IMMUNIZATION) dextrose 40 % 15 g 15 g ORAL PRN Or glucagon 1 mg injection (GLUCAGEN) 1 mg INTRAMUSCULAR PRN Or dextrose 50% in water 25 mL syringe 12.5 g INTRAVENOUS PRN NaCl 0.9% 2-10 mL 2-10 mL INTRAVENOUS q 12 H enoxaparin 40 mg injection (LOVENOX) 40 mg SUBCUTANEOUS DAILY dextrose 5% in LR infusion (D5-LR) 125 mL/hr INTRAVENOUS CONTINUOUS morphine 2 mg injection 2 mg INTRAVENOUS q 3 H PRN acetaminophen 650 mg tab(s) (TYLENOL) 650 mg ORAL q 6 H pantoprazole 40 mg injection (PROTONIX) 40 mg INTRAVENOUS DAILY (6 AM) docusate sodium 100 mg cap(s) (COLACE) 100 mg ORAL BID piperacillin-tazobactam iv piggyback 3.375 g in dextrose (iso- osmotic) 50 mL (ZOSYN) 3.375 g INTRAVENOUS q 6 H Labs: Recent Labs 04/28/18 0530 04/27/18 0407 NA 136 135* K 3.4* 3.2* CHLOR 103 104 CO2 26 22 BUN 15 24* CREAT 1.18* 1.23* GLUC 253* 180* ANION 10 12 CA 7.9* 7.8* ALB 2.1* 2.2* AST 19 11 ALT 27 15 ALKPHOS 107 90 TBILI 0.5 0.9 WBC 11.37* 22.04* HB 12.1* 11.8* HCT 37.2* 36.1* PLT 326 308 Exam: GENERAL: No distress, Alert NEURO: AANDOx3, CN II-XII grossly intact HEENT: normocephalic, atraumatic LUNGS: Unlabored breathing on room air, breath sounds clear CARDIAC: Regular rate and rhythm as above ABDOMEN: Soft,RUQ and incisional TTP, non-distended with bowel sounds EXTREMITIES: BELLO, No deformities, No edema, PPP SKIN: Skin color, texture, turgor normal ASSESSMENT AND PLAN: Active Hospital Problems Diagnosis Date Noted - Acute cholecystitis 04/26/2018 77 year old male with acute cholecystitis ? - Pain control - Diabetic diet - Zosyn (continue ABX x5 days total duration) - Lovenox, Protonix, Ambulate IPCs, IS - Hypokalemia: replete PO - Resume home meds - Morales catheter and obtain urology consult if unable to void - Discharge planning later today or tomorrow 0900 Assessment and plan discussed with attending: Dr Love SIGNATURE: Neva Moreland APRN.VALVE STEAMER PATIENT NAME: Lanny Olivier DATE: April 28, 2018 TIME: 6:08 AM Emergency General Surgery Service Pager: For questions or concerns Mon-Fri 6a-5p please page [phone]. After 5pm and on Weekends and Holidays, please page [phone]. NURSING PROG Observed: 04/28/2018 Status: COMPLETED Source: [facility] 5:34 AM CLINIC OTHER CAMPUS REPOSITORY HNO ID: [id number] Author: Nimisha (Rn) TYRESE Huggins Service: Nursing Author Type: Registered Nurse Type: Nursing Progress Note Filed: 04/28/2018 5:34 AM Note Text: Pt still not able to void at this time. Orders to straight cath pt at this time. MDRD GFR Collected: 04/28/2018 Status: F Source: [email or web address] 5:30 AM HEALTH SYSTEM REPOSITORY TYPE CODE TESTS RESULT OUT OF RANGE REFERENCE UNITS LAB GFRFN(LOINC >60mL/min/1.73m ) 2 eGFR 59.94 Result Comment: If the patient is , multiply the result by 1.210. Performed By: #### GFR #### [place] [address] HEMOGRAM/DIFF Collected: 04/28/2018 Status: F Source: [email or web address] 5:30 AM HEALTH SYSTEM REPOSITORY TYPE CODE TESTS RESULT OUT OF REFERENCE UNITS RANGE LAB WBC(LOINC) 4.23-9.07 thou/cmm WBC High 11.37 LAB RBC(LOINC) 4.63-6.08 mil/cmm Low RBC 4.37 LAB HGB(LOINC) 13.7-17.5 g/dL Low Hgb 12.1 LAB HCT(LOINC) 40.1-51.0 % Low Hct 37.2 LAB MCV(LOINC) 83.2-95.6 fl MCV 85.1 LAB MCH(LOINC) 25.7-32.2 pg MCH 27.7 LAB MCHC(LOINC 32.3-36.5 % ) MCHC 32.5 LAB RDW(LOINC) 11.6-14.4 % RDW 14.3 LAB RDWSD(LOIN 36.1-45.8 fl C) RDW SD 44.2 LAB PLT(LOINC) 141-365 thou/cmm Platelet 326 LAB MPV(LOINC) 8.7-12.0 fl MPV 10.1 LAB SEG(LOINC) % Seg Neutrophil 74.9 LAB IGRE(LOINC % ) Immature Grans 0.70 LAB LYMPH(LOIN % C) Lymphocyte 14.3 LAB MNO(LOINC) % Monocyte 8.9 LAB EOSIN(LOIN % C) Eosinophil 0.9 LAB BASO(LOINC % ) Basophil 0.3 LAB SEGN(LOINC 1.78-5.38 thou/cmm ) Abs. High Neut (ANC) 8.52 LAB IGAB(LOINC 0.00-0.05 thou/cmm ) Abs High Immature Grans 0.08 LAB LYMN(LOINC 0.84-2.85 thou/cmm ) Abs. Lymph 1.63 LAB MONON(LOIN 0.30-0.82 thou/cmm C) Abs. High [place] 1.01 LAB EOSN(LOINC 0.04-0.54 thou/cmm ) Abs. Eosin 0.10 LAB BASON(LOIN 0.01-0.08 thou/cmm C) Abs. Baso 0.03 Performed By: #### CBCD1 #### [place] [id number] COMPREHENSIVE PANEL Collected: 04/28/2018 Status: F Source: [facility] 5:30 AM HEALTH SYSTEM REPOSITORY TYPE CODE TESTS RESULT OUT OF REFERENCE UNITS RANGE LAB NA(LOINC) 136-145 mEq/L Sodium Blood 136 LAB K(LOINC) 3.5-5.1 mEq/L Low Potassium Blood 3.4 LAB CL(LOINC) 98-107 mEq/L Chloride Blood 103 LAB CO2(LOINC) 21-32 mEq/L CO2 Blood 26 LAB GLU(LOINC) 70-99 mg/dL Glucose High Blood 253 LAB BUN(LOINC) 7-18 mg/dL BUN Blood 15 LAB CREA(LOINC 0.67-1.17 mg/dL ) Creatinine High Blood 1.18 LAB CA(LOINC) 8.5-10.1 mg/dL Low Calcium Blood 7.9 LAB ALB(LOINC) 3.4-5.0 g/dL Low Albumin Blood 2.1 LAB TP(LOINC) 6.4-8.2 g/dL Low Total Protein 5.9 LAB AST(LOINC) 9-37 U/L AST-SGOT Blood 19 LAB ALT(LOINC) 12-78 U/L ALT-SGPT Blood 27 LAB ALKP(LOINC 46-116 U/L ) Alk Phosphatase 107 LAB BILIT(LOIN 0.2-1.0 mg/dL C) Total Bilirubin 0.5 LAB ANGAP(LOIN 8-16 C) Anion Gap 10 Performed By: #### P14 #### [place] [address] NURSING PROG Observed: 04/27/2018 Status: COMPLETED Source: [facility] 7:13 PM CLINIC OTHER CAMPUS REPOSITORY O ID: [id number] Author: Yeison (Rn) TYRESE Dee Service: (none) Author Type: Registered Nurse Type: Nursing Progress Note Filed: 04/27/2018 7:15 PM Note Text: Nursing Progress Note Patient Name: Lanny Olivier [address] Location: [id number]-* Daily Note:Spoke to Dr. Sanches regarding pt hasn't voided since catheter removed, and bladder scan of 670, will straight cath, no new orders received will continue to monitor. This note was completed by: Yeison Dee RN PROGRESS Observed: 04/27/2018 Status: COMPLETED Source: [facility] 4:53 PM CLINIC OTHER CAMPUS REPOSITORY HNO ID: [id number] Author: Neva Ramírez (Kimmie) Aniceto Service: General Surgery Author Type: Nurse Specialist Type: Progress Notes Filed: 04/27/2018 5:14 PM Note Text: SERVICE DATE: 04/27/2018 SERVICE TIME: 4:54 PM Post-op check: Reports pain better controlled since taking Oxy, denies nausea. Tolerating clears, will have regular diet for dinner. BP 137/53 Pulse 68 Temp 36.6 ?C (97.9 ?F) (Temporal Artery) Resp 16 Ht 179.1 cm (5' 10.5) Wt 88.5 kg (195 lb) SpO2 100% BMI 27.58 kg/m? AANDO x3, Respirations non-labored on room air. Abd soft, appropriately TTP. Lap sites C/D/I. A/P: 77 year old male with acute gangrenous cholecystitis, s/p lap evelia today - Pain control - Advance diet - Lovenox, Ambulate, IS - Repeat labs in AM Neva Moreland, ANIBAL.VALVE STEAMER CASE MGT INIT Observed: 04/27/2018 Status: COMPLETED Source: [facility] 2:42 PM [facility] OTHER CAMPUS REPOSITORY HNO ID: [id number] Author: Ching (Rn) TYRESE Hidalgo Service: Care Management Author Type: Registered Nurse Type: Care Mgt Initial Assessment Filed: 04/27/2018 2:53 PM Note Text: CARE MANAGEMENT: ASSESSMENT AND DISCHARGE PLAN SERVICE DATE: 04/27/2018 SERVICE TIME: 2:42 PM PRIMARY CARE PHYSICIAN: Delano Epperson MD ADMISSION STATUS: Inpatient Needs Prior to Discharge: To Be Determined 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 No Advance Directive: Current Advance Directive: None Diabetes Education Coordinator Attempted to Assist with AD Completion: Yes Action: Patient Unwilling Health Literacy: 1. How often do you need to have someone help you when you read instructions, pamphlets, or other written material from your doctor or pharmacy? Never - 1 2. How confident are you filling out medical forms by yourself? Extremely - 1 If Patient scores > 3 on either question, the following interventions were put into place: Patient did not score > 3 FUNCTIONAL AND COGNITIVE/BEHAVIORAL PRIOR TO ADMISSION: Baseline Mental Status: Alert AND Oriented, Person, Place , Time, Situation and Age Appropriate Functional Status: Independent Does Patient Currently Receive Any Community Services or Home Care? None Equipment Prior to Admission: Glucometer Has the Patient Been in a Jail Facility in the Past 30 days? No SOCIAL: Living Arrangement: Home Lives With: Spouse Financial Resources: Retired Primary Contact: Extended Emergency Contact Information Primary Emergency Contact: Arleth Olivier [place] Relation: Son Secondary Emergency Contact: Ronna Olivier [place]uke Relation: Spouse Supportive: Yes Other Important Patient Contacts: None Caregiver Assessment: Caregiver is ready, willing and able to meet the patient's needs as recommended by the inter-professional team? Yes Patient's transition needs and plan for meeting these needs: Patient' family is willing/ able to care for him as needed including providing transportation at [place]. Will follow. Does the patient have an acute stroke diagnosis, or has the patient had a stroke during this admission? No Medication Adherence: I am convinced of the importance of my prescription medication: Agree completely - 0 I worry that my prescription medication will do more harm than good to me Disagree completely - 0 I feel financially burdened by my [id number] expenses for my prescription medication: Disagree completely - 0 Patient is categorized as low risk < 2 Are you interested in bedside delivery of your medications? No Food Concerns: In the Last Month, Have You had Trouble Getting Food? No trouble getting food During the Last Month, Have You Worried Whether Your Food Would Run Out Before You Had Enough Money to Buy More? No Is the Patient Psychosocially Complex? No ASSESSMENT AND PLAN: Medical Needs: 2 or more chronic diseases Psychosocial Needs: None FREEDOM OF CHOICE EXPLAINED: No not indicated at this time. Will follow. POTENTIAL TRANSITION PLANS Home Patient independent at home with his spouse prior to admission. Patient hopeful to return home at discharge. Will follow clinical course for DC planning needs. SIGNATURE: Ching Hidalgo RN PATIENT NAME: Lanny Olivier DATE: April 27, 2018 TIME: 2:42 PM PAGER/CONTACT #: [phone] ANES POST Observed: 04/27/2018 Status: COMPLETED Source: [facility] 1:42 PM CLINIC OTHER CAMPUS REPOSITORY HNO ID: [id number] Author: Cheo Zhao Service: Anesthesiology Author Type: Physician Type: Anesthesia PostOp Filed: 04/27/2018 1:42 PM Note Text: POST ANESTHESIA EVALUATION NOTE SERVICE DATE: 04/27/2018 SERVICE TIME: 1:42 PM : 1940 Vitals: 04/27/18 0708 04/27/18 0810 04/27/18 1206 04/27/18 1323 Temp: 37.6 ?C (99.7 ?F) 36.5 ?C (97.7 ?F) 36.2 ?C (97.2 ?F) 36.6 ?C (97.9 ?F) 04/27/18 1206 04/27/18 1215 04/27/18 1230 04/27/18 1323 BP: 157/58 161/73 144/60 130/57 04/27/18 1215 04/27/18 1230 04/27/18 1245 04/27/18 1323 Pulse: 81 78 72 71 04/27/18 1215 04/27/18 1230 04/27/18 1245 04/27/18 1323 Resp: 25 22 17 16 04/27/18 1215 04/27/18 1230 04/27/18 1245 04/27/18 1323 SpO2: 95% 96% 92% 94% Validated Vital Signs: Yes POST ANES STATUS: No apparent anesthetic complications. The patient is appropriately hydrated with stable respiratory and cardiovascular status. Patient has safe and adequate airway control. The patient has appropriate pain relief and no significant post operative nausea or vomiting. The patient has achieved baseline mental status. Intra-Operative Events: No Significant Anesthesia Events Further assessment by Anesthesia Service: None Other Remarks: SIGNATURE: Cheo Mckeon MD PATIENT NAME: Lanny Olivier DATE: April 27, 2018 TIME: 1:42 PM PAGER/CONTACT #: [phone] BRIEF OP NOT Observed: 04/27/2018 Status: COMPLETED Source: [facility] 12:07 PM CLINIC OTHER CAMPUS REPOSITORY HNO ID: [id number] Author: Ramone Love Service: General Surgery Author Type: Physician Type: Brief Op Note Filed: 04/27/2018 5:30 PM Note Text: BRIEF OPERATIVE / PROCEDURE NOTE LOG ID: [id number] Patient Name:Lanny Olivier CSN: [id number] Surgery/Procedure Date: 04/27/2018 Incision/Procedure Start Time: 9:47 AM Incision Close/Procedure End Time: 11:53 AM Surgeon(s)/Proceduralist(s) and Public Relations Coordinator(s): Surgeon(s) and Role: * Ramone Love - Primary * Fatou Quan - Resident - Assisting No Additional Staff Procedure(s): Procedure(s) (LRB): LAPAROSCOPIC CHOLECYSTECTOMY Anesthesia: General Findings: gangrenous gallbladder, wound class IV Estimated Blood Loss: ~75 mls Specimens: gallbladder with contents, intra-op culture of purulent fluid Complications: bile spillage Pre-Op/Pre-Procedure Diagnosis: Acute cholecystitis [K81.0] Post-Op/Post-Procedure Diagnosis: Acute cholecystitis [K81.0] gangrenous SIGNATURE: Fatou Quan DO PATIENT NAME: Lanny Olivier DATE: April 27, 2018 TIME: 12:08 PM PAGER/CONTACT #: [phone] I was present for the entire procedure Observed: 04/27/2018 Status: F Source: [facility] 11:15 AM HEALTH SYSTEM AND AER REPOSITORY Test performed at [facility] No growth No organisms seen Few Polymorphonuclear leukocytes Performed By: #### C_ANA #### [facility] [address] [place] [address] Observed: 04/27/2018 Status: CANCELLED Source: [facility] 11:15 AM HEALTH SYSTEM REPOSITORY Test performed at [facility] ANES PREOP Observed: 04/27/2018 Status: COMPLETED Source: [place] 9:15 AM CLINIC OTHER CAMPUS REPOSITORY HNO ID: [id number] Author: Cheo Zhao Service: Anesthesiology Author Type: Physician Type: Anesthesia PreOp Filed: 04/27/2018 9:17 AM Note Text: ANESTHESIOLOGY DAY OF SURGERY NOTE SERVICE DATE: 04/27/2018 SERVICE TIME: 9:16 AM : 1940 Procedure(s) (LRB): LAPAROSCOPIC CHOLECYSTECTOMY Possible Grams (N/A) Surgeon(s): Ramone Love Estimated body mass index is 27.58 kg/m? as calculated from the following: Height as of this encounter: 179.1 cm (5' 10.5). Weight as of this encounter: 88.5 kg (195 lb). Most recent hematocrit and potassium results: Hematocrit 36.1 04/27/2018 Potassium 3.2 04/27/2018 ANES DOS/PREOP NOTE: Vitals: 04/26/18 2100 04/27/18 0358 04/27/18 0708 04/27/18 0810 BP: (!) 119/45 (!) 121/49 (!) 121/35 Pulse: 74 74 72 Resp: Temp: 37.1 ?C (98.8 ?F) 37.6 ?C (99.7 ?F) 36.5 ?C (97.7 ?F) TempSrc: Temporal Artery Oral Temporal Artery SpO2: 94% 93% 94% Weight: 88.5 kg (195 lb) 88.5 kg (195 lb) Height: 179.1 cm (5' 10.5) 179.1 cm (5' 10.5) ACTIVE PROBLEM LIST Mixed Hyperlipidemia Primary localized osteoarthrosis, lower leg Patellar Tendinitis Unspecified corneal disorder Congenital nuclear cataract Generalized Osteoarthrosis, Unspecified Site PAIN JOINT, KNEE Pernio Statin Intolerance Well Adult Exam Colon Cancer Screening Essential Hypertension With Goal Blood Pressure Less Than 130/85 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, With Long-Term Current Use of Insulin (Hcc) Benign Non-Nodular Prostatic Hyperplasia Without Lower Urinary Tract Symptoms Elevated Prostate Specific Antigen (Psa) Diabetic Eye Exam (Hcc) Medicare Annual Wellness Visit, Subsequent Acute Cholecystitis 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 - Diverticulosis of colon (without mention of hemorrhage) - Essential hypertension, benign - Frostbite of foot 09/06/2010 - GENERAL OSTEOARTHROSIS 01/02/2009 Knees - History of smoking quit 2003 - Hyperplasia of prostate - Internal hemorrhoids without mention of complication - Other and unspecified hyperlipidemia - Patellar tendinitis 1994 - Primary localized osteoarthrosis, lower leg 1994 spurring left knee, calcified soft tissue - Type II or unspecified type diabetes mellitus without mention of complication, not stated as uncontrolled - 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 PAST SURGICAL HISTORY Procedure Laterality Date - 2D ECHO (EXEP) 06/25/2017 EF=60%, no valve issues - APPENDECTOMY 1966 - COLONOSCOP W/ OR W/O [facility] SPEC 10/15/06 repeat due 2016 - FECAL OCCULT BLOOD TEST 03/14/2016 Neg - REMV CATARACT EXTRACAP,INSERT LENS 2011 bilateral - REPAIR ING HERNIA,5+Y/O,REDUCIBL 1981 Hernia repair, inguinal: right FAMILY HISTORY Problem Relation Age of Onset - Stroke Father age 77 - Cancer Mother age 76 cancer stomach - Diabetes Brother age 62 - Coronary Artery Disease Brother age 42 Social History: Social History Substance Use Topics - Smoking status: Former Smoker Packs/day: 1.00 Years: 40.00 Types: Cigarettes - Smokeless tobacco: Never Used Comment: QUIT 2003 - Alcohol use No No current facility-administered medications on file prior to encounter. Current Outpatient Prescriptions on File Prior to Encounter: amLODIPine (NORVASC) 2.5 mg tablet Take 1 tablet by mouth once daily. lisinopril-hydrochlorothiazide (PRINZIDE, ZESTORETIC) 20-25 mg per tablet Take 1 tablet by mouth once daily. insulin glargine (LANTUS SOLOSTAR, BASAGLAR KWIKPEN) 100 unit/mL (3 mL) inpn Inject 34 Units subcutaneously daily at bedtime. insulin aspart U-100 (NOVOLOG FLEXPEN U-100 INSULIN) 100 unit/mL inpn Inject subcutaneously with first bite of food, 6 units w/ breakfast, lunch and dinner aspirin, enteric coated (ASPIRIN, ENTERIC COATED) 81 mg EC tablet Take 1 tablet by mouth once daily. metFORMIN ER (GLUCOPHAGE XR) 500 mg 24 hr tablet Take 2 tablets by mouth twice daily before meals. Insulin [place], Disposable, (BD ULTRA-FINE MIAN PEN NEEDLES) 32 gauge x 5/32 ndle Use one needle for each dose. 4/day. Insulin Syringe-Needle U-100 (BD INSULIN SYRINGE ULTRA-FINE) 0.5 mL 31 gauge x 5/16 syrg Use daily as directed Lancets (ONE TOUCH ULTRASOFT LANCETS) Misc lancets Use as directed blood sugar diagnostic(ONE TOUCH ULTRA TEST STRIPS) Test blood sugar 3-4 times per day. Dx: 250.00. Insulin Dep: Yes Current Facility-Administered Medications: [MAR Hold due to Transfer] potassium chloride iv piggyback 20 mEq/100 mL 20 mEq INTRAVENOUS q 2 HR Neva Ramírez (Continuous Conveyor Screen Drier) Aniceto Last Rate: 50 mL/hr at 04/27/18 0636 20 mEq at 04/27/18 0636 [MAR Hold due to Transfer] influenza vaccine 180 mcg (Patients 65 years and older) (PF) (FLUZONE HIGH DOSE ) 0.5 mL INTRAMUSCULAR ONCE (IMMUNIZATION) Ramone Love [MAR Hold due to Transfer] dextrose 40 % 15 g 15 g ORAL PRN Lazaro Kenny Or [MAR Hold due to Transfer] glucagon 1 mg injection (GLUCAGEN) 1 mg INTRAMUSCULAR PRN Lazaro Kenny Or [MAR Hold due to Transfer] dextrose 50% in water 25 mL syringe 12.5 g INTRAVENOUS PRN Lazaro Kenny [MAR Hold due to Transfer] insulin lispro pen (rapid acting) (HumaLOG KWIKPEN) SUBCUTANEOUS q 6 H Lazaro Kenny 1 Units at 04/27/18 0552 [MAR Hold due to Transfer] NaCl 0.9% 2-10 mL 2-10 mL INTRAVENOUS q 12 H Delano Perkins MD 3 mL at 04/26/18 2200 [MAR Hold due to Transfer] enoxaparin 40 mg injection (LOVENOX) 40 mg SUBCUTANEOUS DAILY Delano Perkins MD [MAR Hold due to Transfer] dextrose 5% in LR infusion (D5- LR) 125 mL/hr INTRAVENOUS CONTINUOUS Delano Perkins MD Last Rate: 125 mL/hr at 04/27/18 0551 125 mL/hr at 04/27/18 0551 [MAR Hold due to Transfer] oxyCODONE IR 5-10 mg tab(s) (ROXICODONE) 5-10 mg ORAL q 6 H PRN Delano Perkins MD [MAR Hold due to Transfer] morphine 2 mg injection 2 mg INTRAVENOUS q 3 H PRN Delano Perkins MD [MAR Hold due to Transfer] acetaminophen 650 mg tab(s) (TYLENOL) 650 mg ORAL q 6 H Delano Perkins MD [MAR Hold due to Transfer] pantoprazole 40 mg injection (PROTONIX) 40 mg INTRAVENOUS DAILY (6 AM) Delano Perkins MD 40 mg at 04/27/18 0551 [MAR Hold due to Transfer] docusate sodium 100 mg cap(s) (COLACE) 100 mg ORAL BID Delano Perkins MD [MAR Hold due to Transfer] piperacillin-tazobactam iv piggyback 3.375 g in dextrose (iso-osmotic) 50 mL (ZOSYN) 3.375 g INTRAVENOUS q 6 H Delano Perkins MD Last Rate: 100 mL/hr at 04/27/18 0552 3.375 g at 04/27/18 05 Allergies: ALLERGIES Allergen Reactions - Ptgqrlo-Oyi-Jaf Red* Intolerance myalgia - Zetia [Ezetimibe] Myalgia DOS EXAM: Adequate NPO status: Yes Anesthetic risks, benefits, alternatives, personnel and consent discussed: Yes Patient agrees to proceed: Yes Previous Anesthesia: No history of adverse event. Airway Assessment: MP 2; Neck ROM: Limited Flexion and Extension; Airway Evaluation: No significant abnormalities Symptoms of Sleep Apnea: Hypertension, Age over 50 (77 year old) and Male gender Dentition: Teeth intact Additional Physical Exam: Lungs: Patient health status unchanged since recent history and physical. See history and physical for exam findings. Cardiac: Patient health status unchanged since recent history and physical. See history and physical for exam findings. Additional Pertinent Findings: N/A Blood Products: Not anticipated for this procedure. Anesthetic Plan: General, Standard ASA Monitors Pain Management Plan: Parenteral or Oral ASA Class: 3 Other Medical Problems: None Chronic Beta Roberta medication administered within 24 hours: N/A I have interviewed and examined the patient. I have reviewed the medical record and/or the pre-anesthesia evaluation, pertinent labs, and test results. Significant changes in the patient's condition since the History and Physical, not otherwise documented in primary service progress notes: No This contains updated information obtained within 48 hours of Surgery/Procedure. SIGNATURE: Cheo Mckeon MD PATIENT NAME: Lanny Olivier DATE: April 27, 2018 TIME: 9:16 AM CSN: [id number] OPERATIVE NO Observed: 04/27/2018 Status: COMPLETED Source: [place] 9:15 AM [facility] OTHER CAMPUS REPOSITORY [facility] ID: [id number] Author: Ramone Love Service: General Surgery Author Type: Physician Type: Operative Report Filed: 04/27/2018 5:32 PM Note Text: OPERATIVE REPORT NAME: Lanny Olivier CSN: [id number] DATE: April 27, 2018 SURGEON and ASSISTANTS: Surgeon(s) and Role: * Ramone Love - Primary * Fatou (Res) Avelina - Resident - Assisting No Additional Staff OPERATION: Laparoscopic cholecystectomy ANESTHESIA: General PREOPERATIVE DIAGNOSIS: Acute cholecystitis [K81.0] POSTOPERATIVE DIAGNOSIS: Acute cholecystitis [K81.0] gangrenous OPERATIVE INDICATIONS: The patient is a 77 year oldsml-boxh-icu male that presented to the ED with abdominal pain. History, physical, labs, and imaging were confirming for acute cholecystitis. Therefore, the patient was consented for the risks, benefits, and alternatives, and details of procedure including, but not limited to, bleeding, infection, damage to surrounding structures including liver and biliary tract. The patient voiced understanding and desire to proceed. OPERATIVE FINDINGS: gangrenous cholecystitis OPERATIVE PROCEDURE: The patient was brought into the operating room, where huddle, time-out procedure, preoperative antibiotics, necessary medical equipment, and staff were all confirmed. The patient underwent general anesthetic with no complications. The abdomen was sterilely prepped with ChloraPrep solution. The patient's left arm had been tucked to the left lateral side. 0.25 % marcaine was injected inferior to the umbilicus and a small incision was made. While retracting upward on the abdominal wall, a veress needle was used the enter the abdomen. Saline drop test was consistent with the veress being intra-abdominal. The abdomen was insufflated through the veress to 15mm Hg and then the veress was removed. A 5 mm trocar was then inserted at the umbilical incision. A 2 cm incision was made in the epigastric area and an 11mm trocar was inserted under direct visualization. Two 5mm trocars were inserted in the R subcostal area under direct visualization. The gallbladder was very edematous and gangrenous. The gallbladder was tense and a needle was used to decompress it so the gallbladder could be grasped. The gallbladder was grasped and retracted cephalad and the infundibulum was then grasped and retracted laterally. Blunt dissection was used to free up adhesions to the gallbladder edge inferiorly. There was a lot of edema and there were fibrous adhesions, but eventually the cystic duct and cystic artery were able to be identified using blunt dissection. We had a good critical view from the liver edge to the cystic duct and gallbladder and the only structures seen entering the gallbladder were the 2 structures suspected of being the cystic artery and the cystic duct We placed two 5 mm clips on the inferior end of the cystic duct and one more superiorly. Scissors were then used to divide the cystic duct. The cystic artery was then clipped and divided in a similar fashion. Electrocautery was used to remove the gallbladder from the gallbladder fossa. While removing the gallbladder, pockets of purulent fl;uid were encountered and found to be within the wall of the gallbladder. The previously drained bile was then sent for culture. Electrocautery was used to control some bleeding from the edematous tissue and from the gallbladder fossa and eventually we had good hemostasis. Once the gallbladder was completely removed from the liver bed it was placed in a specimen retrieval bag and was removed from the abdomen. The gallbladder was large and had multiple large stones, so the size of the epigastric skin incision and fascia were increased on either side to to be able to remove the specimen bag. Of note, during the procedure the gallbladder wall tore while attempting to grasp and retract the gallbladder, and there was some bile and stone spillage. All stones were retrieved and the bile was irrigated and suctioned out. At the end of the procedure, we irrigated copiously, which returned quite clear fluid and good evidence of hemostasis and no biliary leak. We then desufflated the abdomen after removing all trocars under direct visualization and approximated the epigastric incision with interrupted stitches of #0 vicryl. All skin incisions were closed with 4-0 Monocryl suture. All instrument and sponge counts were correct prior to skin closure. Pt was extubated at the end of the case and taken to PACU in stable condition. INCISION START TIME: 9:47 AM INCISION CLOSER TIME: 11:53 AM ESTIMATED BLOOD LOSS: ~75 mls DRAINS: None. SPECIMENS: Gallbladder, intra-op culture of bile COUNTS: All instrument and sponge counts were correct. COMPLICATIONS: None SIGNATURE: Fatou Quan DO PATIENT NAME: Lanny Olivier DATE: April 27, 2018 TIME: 12:10 PM PAGER/CONTACT #: [phone] I was present for the entire procedure NURSING PROG Observed: 04/27/2018 Status: COMPLETED Source: [place] 6:59 AM [facility] REPOSITORY [facility] ID: [id number] Author: Paula KimbleRnNorris Cox RN Service: Nursing Author Type: Registered Nurse Type: Nursing Progress Note Filed: 04/27/2018 6:59 AM Note Text: Nursing Progress Note Patient Name: Lanny Olivier Patient Location: [place] [id number]-* RN left message with patient's , Clarisa per pt's request to inform her that he will be going to surgery today. This note was completed by: Paula Cox RN PROGRESS Observed: 04/27/2018 Status: COMPLETED Source: [place] 6:13 AM [facility] REPOSITORY [facility] ID: [id number] Author: Neva Ramírez (Kimmie) Aniceto Service: General Surgery Author Type: Nurse Specialist Type: Progress Notes Filed: 04/27/2018 7:01 AM Note Text: Emergency General Surgery Progress Note SERVICE DATE: 04/27/2018 TIME: 624 SUBJECTIVE: No acute overnight events. Reports pain controlled and slept fair. Has been NPO since midnight for surgery today. States no questions currently about plan of care Tolerating diet DIET NPO Nausea No Emesis No Flatus Yes Bowel movement No Pain Controlled Yes OBJECTIVE: Vitals: Temp (24hrs), Av ?C (98.6 ?F), Min:36.9 ?C (98.4 ?F), Max:37.1 ?C (98.8 ?F) BP (!) 119/45 Pulse 74 Temp 37.1 ?C (98.8 ?F) (Temporal Artery) Resp 18 Ht 179.1 cm (5' 10.5) Wt 88.5 kg (195 lb) SpO2 94% BMI 27.58 kg/m? O2 Therapy: Room Air IANDO: Date 04/26/18699 - 04/27/1865804/27/18699 - 04/28/18 0659 Shift 2736-2398 9394-4843 5143-9143 24 Hour Total 0636-4423 5201-6830 0992-9596 24 Hour Total I N T A K E IV 2028 2028 D5 LR 929 929 NS 0.9% 1000 1000 Zosyn IV 100 100 Shift Total 2028 2028 O U T P U T Urine 475 475 Void (ml) 475 475 Shift Total 475 475 Weight (kg) 88.5 88.5 88.5 88.5 88.5 88.5 88.5 MEDICATIONS Current Facility-Administered Medications: potassium chloride iv piggyback 20 mEq/100 mL 20 mEq INTRAVENOUS q 1 H influenza vaccine 180 mcg (Patients 65 years and older) (PF) (FLUZONE HIGH DOSE ) 0.5 mL INTRAMUSCULAR ONCE (IMMUNIZATION) dextrose 40 % 15 g 15 g ORAL PRN Or glucagon 1 mg injection (GLUCAGEN) 1 mg INTRAMUSCULAR PRN Or dextrose 50% in water 25 mL syringe 12.5 g INTRAVENOUS PRN insulin lispro pen (rapid acting) (HumaLOG KWIKPEN) SUBCUTANEOUS q 6 H NaCl 0.9% 2-10 mL 2-10 mL INTRAVENOUS q 12 H enoxaparin 40 mg injection (LOVENOX) 40 mg SUBCUTANEOUS DAILY dextrose 5% in LR infusion (D5-LR) 125 mL/hr INTRAVENOUS CONTINUOUS oxyCODONE IR 5-10 mg tab(s) (ROXICODONE) 5-10 mg ORAL q 6 H PRN morphine 2 mg injection 2 mg INTRAVENOUS q 3 H PRN acetaminophen 650 mg tab(s) (TYLENOL) 650 mg ORAL q 6 H pantoprazole 40 mg injection (PROTONIX) 40 mg INTRAVENOUS DAILY (6 AM) docusate sodium 100 mg cap(s) (COLACE) 100 mg ORAL BID piperacillin-tazobactam iv piggyback 3.375 g in dextrose (iso- osmotic) 50 mL (ZOSYN) 3.375 g INTRAVENOUS q 6 H Labs: Recent Labs 04/27/18 0407 04/26/18 2230 NA 135* -- K 3.2* -- CHLOR 104 -- CO2 22 -- BUN 24* -- CREAT 1.23* -- GLUC 180* -- ANION 12 -- CA 7.8* -- ALB 2.2* -- AST 11 -- ALT 15 -- ALKPHOS 90 -- TBILI 0.9 -- WBC 22.04* 26.61* HB 11.8* 12.3* HCT 36.1* 37.9* PLT 308 320 Exam: GENERAL: No distress, Alert NEURO: AANDOx3, CN II-XII grossly intact HEENT: normocephalic, atraumatic LUNGS: Unlabored breathing on room air, breath sounds clear CARDIAC: Regular rate and rhythm as above ABDOMEN: Soft, TTP RUQ, non-distended with bowel sounds EXTREMITIES: BELLO, No deformities, No edema, PPP SKIN: Skin color, texture, turgor normal ASSESSMENT AND PLAN: Active Hospital Problems Diagnosis Date Noted - Acute cholecystitis 04/26/2018 77 year old male with acute cholecystitis - Pain control - NPO/IVF - Zosyn - Lovenox, Protonix, IPCs - Hypokalemia: replete IV - For lap evelia today SIGNATURE: Neva Moreland APRN.VALVE STEAMER PATIENT NAME: Lanny Olivier DATE: April 27, 2018 TIME: 6:14 AM Emergency General Surgery Service Pager: For questions or concerns Mon-Fri 6a-5p please page [phone]. After 5pm and on Weekends and Holidays, please page [phone]. HEMOGRAM Collected: 04/27/2018 Status: F Source: [facility] 4:07 AM HEALTH SYSTEM REPOSITORY TYPE CODE TESTS RESULT OUT OF REFERENCE UNITS RANGE LAB WBC(LOINC) 4.23-9.07 thou/cmm High WBC 22.04 LAB RBC(LOINC) 4.63-6.08 mil/cmm Low RBC 4.27 LAB HGB(LOINC) 13.7-17.5 g/dL Low Hgb 11.8 LAB HCT(LOINC) 40.1-51.0 % Low Hct 36.1 LAB MCV(LOINC) 83.2-95.6 fl MCV 84.5 LAB MCH(LOINC) 25.7-32.2 pg MCH 27.6 LAB MCHC(LOINC) 32.3-36.5 % MCHC 32.7 LAB RDW(LOINC) 11.6-14.4 % RDW 14.4 LAB RDWSD(LOINC 36.1-45.8 fl ) RDW SD 44.3 LAB PLT(LOINC) 141-365 thou/cmm Platelet 308 LAB MPV(LOINC) 8.7-12.0 fl MPV 10.6 Performed By: #### CBC1 #### [place] [address] BASIC PANEL Collected: 04/27/2018 Status: F Source: [facility] 4: AM HEALTH SYSTEM REPOSITORY TYPE CODE TESTS RESULT OUT OF REFERENCE UNITS RANGE LAB NA(LOINC) 136-145 mEq/L Low Sodium Blood 135 LAB K(LOINC) 3.5-5.1 mEq/L Low Potassium Blood 3.2 LAB CL(LOINC) 98-107 mEq/L Chloride Blood 104 LAB CO2(LOINC) 21-32 mEq/L CO2 Blood 22 LAB GLU(LOINC) 70-99 mg/dL Glucose High Blood 180 LAB BUN(LOINC) 7-18 mg/dL BUN High Blood 24 LAB CREA(LOINC 0.67-1.17 mg/dL ) High Creatinine Blood 1.23 LAB CA(LOINC) 8.5-10.1 mg/dL Low Calcium Blood 7.8 LAB ANGAP(LOIN 8-16 C) Anion Gap 12 Performed By: #### P8 #### [place] [address] HEPATIC PANEL Collected: 04/27/2018 Status: F Source: [facility] 4:[facility] REPOSITORY TYPE CODE TESTS RESULT OUT OF REFERENCE UNITS RANGE LAB ALB(LOINC) 3.4-5.0 g/dL Low Albumin Blood 2.2 LAB ALT(LOINC) 12-78 U/L ALT-SGPT Blood 15 LAB ALKP(LOINC 46-116 U/L ) Alk Phosphatase 90 LAB TP(LOINC) 6.4-8.2 g/dL Low Total Protein 6.0 LAB AST(LOINC) 9-37 U/L AST-SGOT Blood 11 LAB BILIT(LOIN 0.2-1.0 mg/dL C) Total Bilirubin 0.9 LAB DBIL(LOINC 0.00-0.20 mg/dL ) Direct High Bilirubin 0.38 Performed By: #### HEPAP #### [place] [address] SURGICAL TISSUE EXAM Observed: 04/27/2018 Status: F Source: [facility] 12:00 AM HEALTH SYSTEM REPOSITORY Test performed at [place] [address] NAME: LANNY OLIVIER REQUESTING: RAMONE LOVE M.D. COPY TO: PRATEEK CABRALES FINAL DIAGNOSIS: GALLBLADDER (LAPAROSCOPIC CHOLECYSTECTOMY) - ACUTE GANGRENOUS CHOLECYSTITIS. CHOLELITHIASIS. OPERATIVE PROCEDURE: Lap evelia CLINICAL INFORMATION: Cholecystitis GROSS DESCRIPTION: Gallbladder Received in formalin labeled gallbladder is a gallbladder measuring 10.0 x 4.0 x 3.0 cm. The serosal surface appears dull, ragged and focally bile stained. A perforation is not evident. The wall of the gallbladder appears fibrotic measuring up to 0.4 cm in thickness. Calculi are present and are of the pigmented type ranging in size from 0.5 up to 2.5 cm in greatest dimension. Several calculi are impacted within the lumen. The mucosal surface appears diffusely denuded and slightly ischemic. A lesion is not seen. Masonry Instructor sections are submitted in formalin in one cassette. ARH:yelena SEGURA M.D. (Electronic signature on file) Signed out: 04/29/2018 14:52 PRINTED: 04/29/2018 Page 1 of 1 Performed By: #### SURG #### [place] [address] CEA Collected: 04/26/2018 Status: F Source: [facility] 10:30 PM HEALTH SYSTEM REPOSITORY TYPE CODE TESTS RESULT OUT OF RANGE REFERENCE UNITS LAB CEA(LOINC) 0.0-3.0 ng/mL High CEA 4.9 Result Comment: The reference range shown is for adult non-smokers. The range for smokers is 0-5.0 Testing performed by Chemiluminescence LOCI. Performed By: #### CEA #### [place] [address] HEMOGRAM/DIFF Collected: 04/26/2018 Status: F Source: [facility] 10:30 PM HEALTH SYSTEM REPOSITORY TYPE CODE TESTS RESULT OUT OF REFERENCE UNITS RANGE LAB WBC(LOINC) 4.23-9.07 thou/cmm WBC High alert 26.61 LAB RBC(LOINC) 4.63-6.08 mil/cmm Low RBC 4.54 LAB HGB(LOINC) 13.7-17.5 g/dL Low Hgb 12.3 LAB HCT(LOINC) 40.1-51.0 % Low Hct 37.9 LAB MCV(LOINC) 83.2-95.6 fl MCV 83.5 LAB MCH(LOINC) 25.7-32.2 pg MCH 27.1 LAB MCHC(LOINC 32.3-36.5 % ) MCHC 32.5 LAB RDW(LOINC) 11.6-14.4 % RDW 14.3 LAB RDWSD(LOIN 36.1-45.8 fl C) RDW SD 43.7 LAB PLT(LOINC) 141-365 thou/cmm Platelet 320 LAB MPV(LOINC) 8.7-12.0 fl MPV 10.4 LAB SEG(LOINC) % Seg Neutrophil 86.9 LAB IGRE(LOINC % ) Immature Grans 0.60 LAB LYMPH(LOIN % C) Lymphocyte 5.3 LAB MNO(LOINC) % Monocyte 7.0 LAB EOSIN(LOIN % C) Eosinophil 0.0 LAB BASO(LOINC % ) Basophil 0.2 LAB SEGN(LOINC 1.78-5.38 thou/cmm ) Abs. High Neut (ANC) 23.12 LAB IGAB(LOINC 0.00-0.05 thou/cmm ) Abs High Immature Grans 0.16 LAB LYMN(LOINC 0.84-2.85 thou/cmm ) Abs. Lymph 1.41 LAB MONON(LOIN 0.30-0.82 thou/cmm C) Abs. High Sibley 1.86 LAB EOSN(LOINC 0.04-0.54 thou/cmm ) Low Abs. Eosin 0.00 LAB BASON(LOIN 0.01-0.08 thou/cmm C) Abs. Baso 0.05 Result Comment: Smear scanned; tech agrees with automated differential LAB PATH(LOINC) Interpreted by See below Result Comment: Kiran Sethi M.D., Pathologist Performed By: #### CBCD1 #### [facility] [address] [place] [address] HISTORY PHYSICAL Observed: 04/26/2018 Status: COMPLETED Source: [place] 9:20 PM CLINIC OTHER CAMPUS REPOSITORY [facility] ID: [id number] Author: Delano (Michael) MD Gregorio Service: Trauma Author Type: Resident Type: HANDP Filed: 04/26/2018 10:08 PM Note Text: ORTHOPAEDIC SURGERY HANDP Pt: LANNY OLIVIER Date of admssion: 04/26/2018 Admitting Physician: Dr. Cabrales - General Surgery Chief Complaint: RUQ pain HPI: 77 year old male presenting as a transfer from [facility] ED today with RUQ pain x 2 days that worsened this morning. Pt reports his pain is worsened with eating and relieved by nothing. He also reports some episodes of n/v 3 days ago. Denies hematemesis. Denies any issues with his bladder or bowel. Denies diarrhea or constipation. Denies fevers/chills. Hx of appendectomy. Hx of inguinal hernia repair. 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 - Diverticulosis of colon (without mention of hemorrhage) - Essential hypertension, benign - Frostbite of foot 09/06/2010 - GENERAL OSTEOARTHROSIS 01/02/2009 Knees - History of smoking quit 2003 - Hyperplasia of prostate - Internal hemorrhoids without mention of complication - Other and unspecified hyperlipidemia - Patellar tendinitis 1994 - Primary localized osteoarthrosis, lower leg 1994 spurring left knee, calcified soft tissue - Type II or unspecified type diabetes mellitus without mention of complication, not stated as uncontrolled - 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 PAST SURGICAL HISTORY Procedure Laterality Date - 2D ECHO (EXEP) 06/25/2017 EF=60%, no valve issues - APPENDECTOMY 1966 - COLONOSCOP W/ OR W/O BRSH SPEC 10/15/06 repeat due 2016 - FECAL OCCULT BLOOD TEST 03/14/2016 Neg - REMV CATARACT EXTRACAP,INSERT LENS 2011 bilateral - REPAIR ING HERNIA,5+Y/O,REDUCIBL 1981 Hernia repair, inguinal: right Allergies: Xshtahw-Yuz-Grh Reductase Inhibitors; Zetia [Ezetimibe] Current Facility-Administered Medications: influenza vaccine 180 mcg (Patients 65 years and older) (PF) (FLUZONE HIGH DOSE 2017-) 0.5 mL INTRAMUSCULAR ONCE (IMMUNIZATION) dextrose 40 % 15 g 15 g ORAL PRN Or glucagon 1 mg injection (GLUCAGEN) 1 mg INTRAMUSCULAR PRN Or dextrose 50% in water 25 mL syringe 12.5 g INTRAVENOUS PRN insulin lispro pen (rapid acting) (HumaLOG KWIKPEN) SUBCUTANEOUS q 6 H FH: Non-contributory. Negative for any bleeding or clotting disorders. Social Hx: Admits to 50 pack years of tobacco use, denies alcohol illicit drug abuse. ROS: 10 pt ROS neg except in HPI O: Vitals: BP (!) 129/46 Pulse 79 Temp 36.9 ?C (98.4 ?F) (Oral) Resp 18 Ht 179.1 cm (5' 10.5) Wt 88.5 kg (195 lb) SpO2 95% BMI 27.58 kg/m? Labs: No results for input(s): NA, K, CHLOR, CO2, BUN, CREAT, GLUC, ANION, CA, MG, P, ALB, AST, ALT, ALKPHOS, TBILI, DBILI, PHOSINTL, WBC, HB, HCT, PLT, LACT, INR, PH, PCO2, PO2, BE, HCO3 in the last 72 hours. Invalid input(s): LISDBC Physical exam: General: AANDO x 3; NAD. Cooperative throughout entire interview Head: Atraumatic Neck: supple Cards: RRR Lungs: Non-labored breathing Abdomen: Soft, non-distended. RUQ tenderness, no rebound or guarding. No jaundice appreciated. Neuro: Grossly intact Extremities: Moves all extremities. Imaging: US abd - Multiple views of reviewed and demonstrate a non-distended gallbladder. GB wall measures 9 mm with negative sonographic Brown's sign with pericholecystic fluid. Multiple gallstones and sludge are seen within the gallbladder. CBD measures [address] abd - GB wall thickening with small amount of pericholecystic fluid. Diffuse circumferential wall thickening of hepatic flexure also seen. A/P: 77 year old male with acute cholecystitis - Admit to general surgery - Pain control with Tylenol, oxy and morphine as needed - NPO at midnight (0001, 04/26/2018), IVF start at midnight as well - AM labs - CBC, BMP, LFTs - GI prophylaxis - DVT Ppx - lovenox 40mg daily - Abx - Zosyn - Discussed with Dr. Cabrales, who agrees with plan. Delano Perkins MD 9:22 PM April 26, 2018 HISTORY AND PHYSICAL Observed: 04/26/2018 Status: F Source: [facility] 6:58 PM [facility] REPOSITORY [facility] Medical Records Department [address] [place] [address] History and Physical 04/26/18 1719 MR#: [id number] Acct: [id number] Name: LANNY OLIVIER Rep #: [id number] : 1940 77 From: Tania Puente MD PCP: Delano Epperson MD Status: REG ER Y Location: ED History of Present Illness Date of Admission: 04/26/18 Chief Complaint: right upper abdominal pain The patient is a 77 year old M past medical history of hypertension diabetes mellitus. He was admitted through the ED on 04/26/2018 with a complaint of right upper quadrant abdominal pain which have been going on for about 3 days now. Pain was sharp, worsened by eating with no relieving factors. He denied any fever or chills, any chest pain or shortness of breath but had associated vomiting but no diarrhea. Pain got worse and so he decided to come into the ED today. The ED, he was found to have temperature of 99.3 Fahrenheit vitals were otherwise within normal limits. Labs showed sodium of 134 and creatinine of 1.55 with direct bilirubin of 0.33. CBC showed white cell count of 30,000. Abdominal pelvic CT showed inflammatory changes in the gallbladder fossa with gallbladder wall thickening and pericholecystic fluid as well as diffuse circumferential wall thickening of the hepatic flexure. Gallbladder ultrasound showed fatty liver infiltration, normal distended gallbladder with negative sonographic Brown sign and gallbladder wall measuring 9 mm. Showed presence of pericholecystic fluid and multiple gallstones and sludge seen within the gallbladder. He has been admitted to be managed for acute cholecystitis. [] Past Medical History Past Medical History (Chronic Problems): Chronic Problems Tobacco abuse (Chronic) Hypertension (Chronic) Type 2 diabetes mellitus (Chronic) Allergies No Known Allergies Allergy (Verified 04/26/18 13:02) Home Medications: Ambulatory Orders Medication Instructions Recorded Insulin Aspart [Novolog Flexpen 6 units SC BIDCM 06/25/17 Surgical History: appendectomy Psychiatric History: No pertinent psych hx Smoking Status: Current every day smoker - *Family History Maternal History Items: Cancer Paternal History Items: Diabetes, Stroke Review of Systems Constitutional: Denies: Chills, Fever, Malaise, Weakness, Weight Change, Fatigue Eyes: Denies: Blurred vision HEENT: Denies: Head Aches, Sinus Congestion, Sinus Drainage Cardiovascular: Denies: Chest Pain, Chest Pressure, Chest Tightness, Palpitations Respiratory: Denies: Cough, Pleuritic Pain, Shortness of Breath, Shortness of breath at rest, Shortness of breath upon exertion, Sputum production, Wheezing Gastrointestinal: Reports: Abdominal Pain, Vomiting. Denies: Constipation, Diarrhea, Dyspepsia, Hematemesis, Nausea, Melena Genitourinary: Denies: Dysuria Musculoskeletal: Denies: Joint Pain, Joint Tenderness Skin: Denies: Rash, Wounds Neurological: Denies: Numbness, Tingling, Focal weakness Psychiatric: Denies: Anxiety, Depression, Homicidal Ideations, Suicidal Ideations Hematologic/ Lymphatic: Denies: Easy Bruising, Easy Bleeding VTE Information - Inpt Only VTE Present on Admission: No VTE Pharm Prophylaxis ordered?: Yes - Physical Exam General: Alert, Oriented x3, Cooperative, No apparent distress HEENT: Atraumatic, PERRLA, EOMI, Normocephalic Oral: Dry Mucosa Neck: Supple, No JVD, Negative Carotid Bruits Lungs: Clear to auscultation, Normal air movement, No rhonchi, No wheeze, No rales Cardiovascular: Regular rate, Regular Rhythm, Normal S1, Normal S2, No murmurs Abdomen: Bowel Sounds Present, Soft, Non-Distended, No Hepato- splenomegaly, - - moderate RUQ tenderness, with no guarding or rebound tenderness. Negative Brown's sign Extremities: No clubbing, No cyanosis, No edema, Capillary Refill Less than 3 Seconds Skin: No rashes, No breakdown Musculoskeletal: No Tenderness to Palpation of Joints or Extremities, No Muscle Wasting Lymphatic: No Cervical, Supraclavicular, or Inguinal Adenopathy Neurological: Cranial nerves II-XII grossly intact, Neuro grossly intact, Motor Exam 5/5 strength throughout Psych/Mental Status: Normal Affect, Appropriate, Alert and oriented to time, place, person, mood and affect Vital Signs Temp Pulse Resp BP Pulse Ox 99.3 F H 91 16 118/73 97 04/26/18 13:04 04/26/18 13:04 04/26/18 17:02 04/26/18 13:04 04/26/18 13:04 Oxygen Delivery Method Room Air Weight: 200 lb 9.93 oz Body Mass Index (BMI) 28.8 Laboratory Tests Past 24 Hrs WBC 30.0 H* RBC 4.85 Hgb 13.3 Hct 40.6 MCV 83.7 MCH 27.4 MCHC 32.8 RDW 14.6 RDW Differential 44.6 H Diagnostic Data Abdomen/Pelvis CT 04/26/18 13:28 IMPRESSION: Inflammatory changes seen in the gallbladder fossa with gallbladder wall thickening and pericholecystic fluid. Correlation with ultrasound is recommended for further evaluation. Diffuse circumferential wall thickening of the hepatic flexure. Electronically Signed: You Erwin MD at 14:46 EST Tel [phone], Service support , Gallbladder Ultrasound 04/26/18 15:06 IMPRESSION: Increased hepatic and pancreatic echogenicity suggestive of fatty infiltration. Hepatomegaly is noted. Multiple gallstones and sludge present within the gallbladder. There is gallbladder wall thickening and pericholecystic fluid. Findings are compatible with cholecystitis. Right nephrolithiasis as well as several small right renal cysts. Electronically Signed: Jt Townsend MD at 16:16 EST , Service support , Assessment/Plan All Active Problems Meningitis (Acute) Confusion (Acute) Mental status change (Acute) 77-year-old male admitted with a complaint of right upper quadrant pain for 3 days 1. Sepsis due to Acute cholecystitis * SIRS criteria is 2/4 (fever and leucocytosis), wtih gall bladder as source of infection * Abdominopelvic CT showed evidence of acute cholecystitis and gallbladder ultrasound showed pericholecystic fluid and gallbladder sludge as well as multiple gallstones with thickening of gallbladder wall. * [facility] * White cell count is 30. Total biliarubin is 0.8, with direct bilirubin of 0.33. Lipase is only 45 * Was started on IV Zosyn in the ED. Will continue. * Will give IV fluid normal saline 125 cc/h. * Keep n.p.o. for now. General surgery consult with Dr. Kirk. She was spoken to by the ED doctor. * 2. Hyponatremia: Hypovolemic hypotonic hyponatremia. His sodium is 134. Lips are very dry. Will hydrate with IV fluids and monitor. 3. AK I: Creatinine is 1.55 with baseline being less than 1. Likely prerenal due to dehydration from decreased intake. Hydrate and monitor. 4. Per attention: Controlled. On amlodipine. Will hold lisinopril in light of ROSALIA. Continue hydrochlorothiazide 25 mg daily. 5. Diabetes: We will hold home diabetes medication and start insulin sliding scale. Accu-Cheks every 6 on account of patient being n.p.o. 6. DVT prophylaxis: Heparin CODE STATUS: Patient counseled extensively about different types of CODE STATUS including full code, DNR CCA and DNR CCA. Patient elects to be full code. Total pgqd-rb-liln time 16 minutes. 6:57pm Decision was made by surgeon to transfer patient to tertiary [facility] subsequently as she wanted him to get a biliary stent; there was however nobody to do the procedure at that particular time. * Code Visit Inpatient E AND M: 94304 Init Hosp L3 Procedures: 05981 Advncd Care Plan 30 Min 04/26/18 5918 <Electronically signed by Tania Puente MD> Date Tania Puente MD Cosigner Signature: Date (if applicable) CC: Delano Epperson MD; Tania Puente MD Signed EMERGENCY DEPARTMENT Observed: 04/26/2018 Status: F Source: [place] SUMMARY 4:33 PM [facility] REPOSITORY [facility] Medical Records Department [address] [place] [address] Emergency Department Summary 04/26/18 1338 MR#: [id number] Acct: [id number] Name: LANNY OLIVIER Rep #: [id number] : 1940 77 From: Shavon Parker MD PCP: Delano Epperson MD Status: ADM [place] ADDENDUM by MD Miguel Parker on 04/26/18 at 1633 Addendum nursing approached me to indicate Dr. Kirk had called to inform them that she felt the patient needed to be transferred to a different facility for appropriate care. I spoke with the patient and his discussed Dr. Kirk's recommendation they agreed to be transferred to [facility] if they have could capability to care for him or [facility], at this time we are calling these facilities to arrange for his transfer 04/26/18 1633 Date Shavon Parker MD cc: Delano Epperson MD * Signed - ER Visit Summary Date of Service: 04/26/18 Chief Complaint: [] Right-sided abdominal pain constipation vomiting generalized weakness History of Present Illness: The patient is a 77 M [] patient and the reports since Thursday the patient's had a vague nonspecific pain to the right side of the abdomen he then developed vomiting and constipation to where he cannot pass any stool of any kind, he is passing normal amounts of urine, he also complains of generalized weakness. Symptoms persisted he came in for evaluation. The reports he had meningitis about a year ago and he had generalized weakness then. He has no history of GI elements colonoscopy 10 years ago unremarkable, appendectomy in the 1950s, every time he eats he has a sense of vomiting Physical Examination: [] 118/83 General, no distress resting comfortably HEENT is generally unremarkable The neck is supple no adenopathy Cardiovascular, regular rate and rhythm Lungs, clear bilateral Abdomen, soft nontender, he has a vague discomfort to the right flank it is not focal his back is unremarkable, there is no rebound guarding organomegaly his exam is unremarkable rectal exam shows very little stool in the vault nontender Extremities, no clubbing cyanosis or edema Neurologic, awake alert answering questions appropriately moving all 4 extremities, his cranial nerves are normal he is moving all 4 extremities he is awake and alert answering questions appropriately with normal mental status Test Results: [] Emergency Department Course and Treatment: [] Given his complaints of abdominal pain vomiting screening labs CT IV fluids there is no signs at this time of any type of a neurologic condition or VALVE STEAMER infection, he does have some vague right flank pain in his chief complaint quite honestly is constipation and vomiting CT abdomen flank shows signs consistent with acute cholecystitis see that report he also has some nonspecific lesions in the kidneys, his white count came back at 30,000 he was started on IV antibiotics, we paged Dr. Kirk senior online marketing manager for surgery she asked the patient be admitted to hospitalist, spoke with the hospitalist they are coming to see him for admission, radiology recommended formal ultrasound which is pending which will be checked by the admitting service and consult a services dw with the patient family they understand and agree Treatment Plan: [] Disposition: [] Admit stable Impression: [] Acute cholecystitis This note was generated with [employer] dictation software. It may contain incorrect words, spelling, and punctuation that were not noted in review of the chart prior to signing ED Disposition - Plan for ED Patient: Chief Complaint: Abd Pain Referrals: Delano Epperson MD [Primary Care Provider] - What to do if you have Problems For any increased pain, shortness of breath, bleeding, nausea or vomiting, chest pain, or any unexpected problems, contact your Primary Care Provider. Call [facility] ([phone]) or report to the closest Emergency Room. Call 911 if necessary. 04/26/18 1621 <Electronically signed by Shavon Parker MD> Date Shavon Parker MD Cosigner Signature (If Indicated): Date CC: Delano Epperson MD GALLBLADDER Observed: 04/26/2018 Status: F Source: [place] 3:07 PM [facility] REPOSITORY [facility] Imaging Services [address] [place] [address] Gallbladder MR#: [id number] Acct: [id number] Name: LANNY OLIVIER Rep #: [id number] : 1940 M 77 From: Jt Townsend MD PCP: Delano Epperson MD Status: REG ER Study: Gallbladder Date of Exam: 04/26/18 Exam# [id number] Ordering Dr: Shavon Parker MD STUDY: ABDOMINAL ULTRASOUND - RIGHT UPPER QUADRANT REASON FOR VISIT: Male, 77 years old. Right upper quadrant pain TECHNIQUE: Ultrasound evaluation of the right upper quadrant was performed with real-time and static gillis-scale imaging. TECHNICAL QUALITY: Adequate. COMPARISON: None. FINDINGS: Liver: The liver measures 20.2 cm. There is increased echogenicity consistent with fatty infiltration. The bile ducts are within normal limits. There is hepatic color flow. The direction of portal flow is hepatopetal. There is no demonstrated mass lesion. Gallbladder: Normal distended gallbladder. The gallbladder wall measures 9 mm. There is a negative sonographic Brown's sign. There is pericholecystic fluid. Multiple gallstones and sludge are seen within the gallbladder. Common Bile Duct (C.B.D.): The common bile duct measures 6 mm. Pancreas: Normal size of the head, body and tail of the pancreas. There is increased echogenicity of the pancreas. There is no demonstrated pancreatic mass or cyst. Right Kidney: Normal size of the right kidney. The right kidney measures 13.1 x 5.4 x 5.4 cm. Normal renal cortex. The right cortex measures 1.8 cm. There are 2 right renal cysts measuring 2.1 x 2.6 x 2.4 cm and 1.8 x 1.3 x 1.5 cm. There is a tiny echogenic focus of the lower pole consistent with calculus. There is no right hydronephrosis. US/Gallbladder IMPRESSION: Increased hepatic and pancreatic echogenicity suggestive of fatty infiltration. Hepatomegaly is noted. Multiple gallstones and sludge present within the gallbladder. There is gallbladder wall thickening and pericholecystic fluid. Findings are compatible with cholecystitis. Right nephrolithiasis as well as several small right renal cysts. Electronically Signed: Jt Townsend MD at 16:16 EST , Service support , CC: MD Miguel Parker; Delano Epperson MD Paddle Dyeing Machine Operator: Signed CBC W/DIFF, AUTOMATED Collected: 04/26/2018 Status: C Source: [place] 1:43 PM [facility] REPOSITORY TYPE CODE TESTS RESULT OUT OF RANGE REFERENCE UNITS LAB L100.1000 4.4-11.0 K/mm3 High alert WBC 30.0 Result Comment: CRITICAL VALUE VERIFIED. CALLED TO ASHOK XIONG IN ED 04/26/18 1407 Tran [place]. RESULTS READ BACK BY SAME . LAB L100.1200 4.6-6.2 M/mm3 Normal RBC 4.85 LAB L100.1300 13.0-16.5 g/dl Normal HGB 13.3 LAB L100.1400 40-54 % Normal HCT 40.6 LAB L100.1500 80-94 fL Normal MCV 83.7 LAB L100.1600 27.0-32.0 pg Normal MCH 27.4 LAB L100.1700 32-36 g/gl Normal MCHC 32.8 LAB L100.1810 11.6-14.6 % Normal RDW 14.6 CV LAB L100.1820 35.1-43.9 fl High RDW 44.6 SD LAB L100.1900 150-450 K/mm3 Normal PLT 334 LAB L100.2000 6.2-12.0 fl Normal MPV 10.2 LAB L100.2100 47-70 % High NEUT% 88.0 LAB L100.2200 19-41 % Low LY% 4.0 LAB L100.2300 0-10 % Normal MONO% 7.6 LAB L100.2400 0-5 % Normal EO% 0.0 LAB L100.2500 0-1 % Normal BASO% 0.1 LAB L100.2550 0.0-0.9 % Normal IM 0.300 GRAN % Result Comment: IG% - Immature Granulocytes (promyelocytes, myelocytes and metamyelocytes) > 1% indicates that a LEFT SHIFT is Present. LAB L100.2620 2.0-7.7 X10 3/uL High Absolute Neut 26.4 LAB L100.2720 0.83-4.51 X10 3/ul Normal Absolute Lymph 1.19 LAB L100.9900 Normal PATH REV Reviewed Result Comment: Neutrophilic leukocytosis. Clinical correlation necessary. Chris Ann M.D. 04/27/18 AMENDED REPORT 04/27/18 1503 PATH REV previously reported as: Светлана rojas Performed By: #### L100.0100 #### [facility] [address] [place], [address] BASIC METABOLIC Collected: 04/26/2018 Status: F Source: [place] PROFILE ([facility]) 1:43 PM [facility] REPOSITORY TYPE CODE TESTS RESULT OUT OF RANGE REFERENCE UNITS LAB L501.0100 74-106 mg/dL High GLU 177 Result Comment: Fasting Glucose result greater than or equal to 126 mg/dL suggests DIABETES MELLITUS per A.D.A. criteria. Please note revised GLUCOSE reference range effective 2017. LAB L501.1000 7-18 mg/dL High BUN 32 LAB L501.1100 0.70-1.30 mg/dL High CREAT,SERUM 1.55 Result Comment: The validity of the calculated GFR AND GFRAA in patients over 70 years has not been determined. Clinical correlation is essential. LAB L501.1110 >60 mL/min Low EST GFR 47 Result Comment: Non- GFR Calc LAB L501.1115 >60 mL/min Low EST GFR - AA 56 Result Comment: GFR Calc LAB L501.1255 ml/min Normal Estimated CRCL 41.86 LAB L501.1300 10-20 RATIO High BUN/CRE 20.6 LAB L501.2200 8.5-10 mg/dL Normal .1 CA 8.7 LAB L501.5300 136-14 mmol/L Low 5 NA 134 LAB L501.5600 3.5-5. mmol/L Normal 1 K 3.7 LAB L501.5900 98-107 mmol/L Normal CL 99 LAB L501.6100 21.0-3 mmol/L Normal 2.0 CO2 24.0 LAB L501.6200 5-15 Normal GAP 11 Performed By: #### L500.2500, L500.3400, L501.2450, L501.4010 #### [facility] [address] [place], [place], [id number] LIVER PROFILE Collected: 04/26/2018 Status: F Source: [place] 1:43 PM [facility] REPOSITORY TYPE CODE TESTS RESULT OUT OF RANGE REFERENCE UNITS LAB L501.1500 6.4-8.2 g/dL Normal T PROT 7.3 LAB L501.1800 3.2-5.0 g/dL Low ALB 2.9 LAB L501.1950 2.2-4.2 g/dL High GLOB 4.4 LAB L501.4100 15-37 U/L Normal AST 15 LAB L501.4305 45-117 U/L Normal ALK P 110 LAB L501.4405 16-61 U/L Normal ALT 17 LAB L501.4600 0.20-1.00 mg/dL Normal T BILI 0.80 LAB L501.4700 0.00-0.30 mg/dL High D BILI 0.33 Performed By: #### L500.2500, L500.3400, L501.2450, L501.4010 #### [facility] [address] [facility] [facility] [place], [place], [id number] LIPASE Collected: 04/26/2018 Status: F Source: [place] 1:43 PM [facility] REPOSITORY TYPE CODE TESTS RESULT OUT OF REFERENCE UNITS RANGE LAB L501.2450 73-393 U/L Low LIPASE 45 Performed By: #### L500.2500, L500.3400, L501.2450, L501.4010 #### [facility] [address] [place], [address] TROPONIN-I Collected: 04/26/2018 Status: F Source: [place] 1:43 PM [facility] REPOSITORY TYPE CODE TESTS RESULT OUT OF RANGE REFERENCE UNITS LAB L501.4010 <0.045 ng/mL Normal < 0.015 TROPONIN-I Result Comment: TROPONIN-I EXPECTED VALUES <0.045 Negative 0.045 - 0.590 Consistent with Cardiac Damage > OR = 0.600 Critical Value Not every elevated troponin is indicative of NE. These values should be used with clinical judgement in examining the patient's clinical picture for diagnosis. To establish a diagnosis of NE versus myocardial injury, there must be a demonstrated rise and/or fall in the troponin values, in addition to ischemic symptoms, EKG changes, new regional wall motion abnormality, and/or angiographical evidence. PLEASE NOTE: REFERENCE RANGES EDITED 17 Performed By: #### L500.2500, L500.3400, L501.2450, L501.4010 #### [facility] [address], [address] ABDOMEN/PELVIS WITHOUT Observed: 04/26/2018 Status: F Source: [place] CONT 1:30 PM [facility] REPOSITORY [facility] Imaging Services [address] [place] [address] Abdomen/Pelvis without Cont MR#: [id number] Acct: [id number] Name: LANNY OLIVIER Rep #: [id number] : 1940 77 From: You Erwin MD PCP: Delano Epperson MD Status: REG ER Study: Abdomen/Pelvis without Cont Date of Exam: 04/26/18 Exam# [id number] Ordering Dr: Shavon Parker MD STUDY: CT ABDOMEN AND PELVIS WITHOUT CONTRAST REASON FOR EXAM: Male, 77 years old. Abdominal pain. RADIATION DOSAGE (If Supplied By Facility): CTDIvol = ( 11.41 ) mGy, DLP = ( 896.73 ) mGycm TECHNIQUE: Transaxial images were obtained from the dome of the diaphragm to the symphysis pubis without oral contrast, and without intravenous contrast. Sagittal and coronal images were reconstructed. Individualized dose optimization techniques were used for this CT. COMPARISON: None. FINDINGS: Mild degree of increased markings at the lung bases suggestive of atelectasis and/or scarring. Coronary artery calcification. Normal liver. There is evidence of gallbladder wall thickening. Small amount of pericholecystic fluid. Increased markings are seen in the fat surrounding the gallbladder fossa suggestive of a acute cholecystitis. This extends into the region of the hepatic flexure. Correlation with ultrasound is recommended. There is a benign calcified granuloma of the spleen. Normal pancreas. Normal bilateral adrenal glands. There is a 2.1 cm x 1.9 cm cyst in the posterior superior aspect of the right kidney as well as a 1.6 cm complex cyst with rim-like calcification in the posterior medial aspect of the right kidney. There is also evidence of a 2.7 cm x 2.1 cm cyst in the lower pole. Incidental note is made of a 2 mm calculus in the lower pole of the right kidney. There is a 2.3 cm x 1.7 cm cyst in the anterior superior aspect of the left kidney. Adjacent to this, there is a 2.9 cm x 2.6 cm left renal cyst. Nonspecific bilateral perinephric stranding. There is a small hiatal hernia. Normal small intestine. Diffuse circumferential wall thickening of the hepatic flexure. The appendix is visualized and appears normal. There is diffuse atherosclerotic calcification of the abdominal aorta, without a demonstrated aneurysm. Normal inferior vena cava. There is borderline retroperitoneal lymphadenopathy with enlarged nodes no greater than 10mm in the short axis diameter. Normal urinary bladder. There is enlargement of the prostate gland. It measures 5.7 cm by 5.2 cm. This causes indentation and protrusion into the base of the bladder. Central prostatic calcifications. Small bilateral inguinal hernias containing fat. There are diffuse degenerative changes of the visualized lumbar spine. CT/Abdomen/Pelvis without Cont IMPRESSION: Inflammatory changes seen in the gallbladder fossa with gallbladder wall thickening and pericholecystic fluid. Correlation with ultrasound is recommended for further evaluation. Diffuse circumferential wall thickening of the hepatic flexure. Electronically Signed: You Erwin MD at 14:46 EST Tel [phone], Service support , CC: MD Miguel Parker; Delano Epperson MD Paddle Dyeing Machine Operator: Signed HOSP Observed: 04/26/2018 Status: COMPLETED Source: [place] 12:00 AM CLINIC OTHER CAMPUS REPOSITORY Patient:Lanny Olivier MRN: <[id number]> Height:5' 10.5(1.791 m) Weight:195 lb (88.451 kg) Outpatient Medications as of 04/27/18: amLODIPine (NORVASC) 2.5 mg tablet lisinopril-hydrochlorothiazide (PRINZIDE, ZESTORETIC) 20-25 mg per tablet insulin glargine (LANTUS SOLOSTAR, BASAGLAR KWIKPEN) 100 unit/mL (3 mL) inpn insulin aspart U-100 (NOVOLOG FLEXPEN U-100 INSULIN) 100 unit/mL inpn aspirin, enteric coated (ASPIRIN, ENTERIC COATED) 81 mg EC tablet metFORMIN ER (GLUCOPHAGE XR) 500 mg 24 hr tablet Insulin [place], Disposable, (BD ULTRA-FINE MIAN PEN NEEDLES) 32 gauge x 5/32 ndle Insulin Syringe-Needle U-100 (BD INSULIN SYRINGE ULTRA-FINE) 0.5 mL 31 gauge x 5/16 syrg Lancets (ONE TOUCH ULTRASOFT LANCETS) Misc lancets blood sugar diagnostic(ONE TOUCH ULTRA TEST STRIPS) Admission/Clinic Administered Medications as of 04/27/18: potassium chloride iv piggyback 20 mEq/100 mL lactated ringers infusion meperidine (PF) 12.5 mg injection (DEMEROL) ipratropium-albuterol 3 mL nebulizer solution (DUONEB) fentaNYL 50 mcg/mL 50 mcg injection (SUBLIMAZE) HYDROmorphone HCl 0.5 mg injection (DILAUDID) ondansetron (PF) 4 mg injection (ZOFRAN) prochlorperazine 10 mg injection (COMPAZINE) influenza vaccine 180 mcg (Patients 65 years and older) (PF) (FLUZONE HIGH DOSE 2017-) dextrose 40 % 15 g glucagon 1 mg injection (GLUCAGEN) dextrose 50% in water 25 mL syringe insulin lispro pen (rapid acting) (HumaLOG KWIKPEN) NaCl 0.9% 2-10 mL enoxaparin 40 mg injection (LOVENOX) dextrose 5% in LR infusion (D5-LR) oxyCODONE IR 5-10 mg tab(s) (ROXICODONE) morphine 2 mg injection acetaminophen 650 mg tab(s) (TYLENOL) pantoprazole 40 mg injection (PROTONIX) docusate sodium 100 mg cap(s) (COLACE) piperacillin-tazobactam iv piggyback 3.375 g in dextrose (iso- osmotic) 50 mL (ZOSYN) Problem List: Mixed hyperlipidemia [E78.2] Primary localized osteoarthrosis, lower leg [M17.10] Patellar tendinitis [M76.50] Unspecified corneal disorder [H18.9] 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] Generalized osteoarthrosis, unspecified site [M15.9] PAIN JOINT, KNEE [M25.569] Pernio [T69.1XXA] Statin intolerance [Z78.9] Well adult exam [Z00.00] Colon cancer screening [Z12.11] Essential hypertension with goal blood pressure less than 130/85 [I10] Disorder of prostate [N42.9] Type 2 diabetes mellitus with retinopathy, with long-term current use of insulin (HCC) [E11.319, Z79.4] Benign non-nodular prostatic hyperplasia without lower urinary tract symptoms [N40.0] Elevated prostate specific antigen (PSA) [R97.20] Diabetic eye exam (HCC) [Z01.00, E11.9] Medicare annual wellness visit, subsequent [Z00.00] Acute cholecystitis [K81.0] Allergies: Giuyrys-Ddv-Tot Reductase Inhibitors Zetia [Ezetimibe] Date Verified: 04/27/18 Lab Values Lab Value Units Date High Low POTA* 3.2 mEq/L 04/27/2018 5.1 3.5 SEBASTIÁN* 36.1 % 04/27/2018 51.0 40.1 Progress Notes (): Delano Perkins MD, MD 04/26/2018 10:08 PM Cosign Needed ORTHOPAEDIC SURGERY HANDP Pt: LANNY OLIVIER Date of admssion: 04/26/2018 Admitting Physician: Dr. Cabrales - General Surgery Chief Complaint: RUQ pain HPI: 77 year old male presenting as a transfer from [facility] today with RUQ pain x 2 days that worsened this morning. Pt reports his pain is worsened with eating and relieved by nothing. He also reports some episodes of n/v 3 days ago. Denies hematemesis. Denies any issues with his bladder or bowel. Denies diarrhea or constipation. Denies fevers/chills. Hx of appendectomy. Hx of inguinal hernia repair. 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 - Diverticulosis of colon (without mention of hemorrhage) - Essential hypertension, benign - Frostbite of foot 09/06/2010 - GENERAL OSTEOARTHROSIS 01/02/2009 Knees - History of smoking quit 2003 - Hyperplasia of prostate - Internal hemorrhoids without mention of complication - Other and unspecified hyperlipidemia - Patellar tendinitis 1994 - Primary localized osteoarthrosis, lower leg 1994 spurring left knee, calcified soft tissue - Type II or unspecified type diabetes mellitus without mention of complication, not stated as uncontrolled - 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 PAST SURGICAL HISTORY Procedure Laterality Date - 2D ECHO (EXEP) 06/25/2017 EF=60%, no valve issues - APPENDECTOMY 1966 - COLONOSCOP W/ OR W/O [facility] SPEC 10/15/06 repeat due 2016 - FECAL OCCULT BLOOD TEST 03/14/2016 Neg - REMV CATARACT EXTRACAP,INSERT LENS 2011 bilateral - REPAIR ING HERNIA,5+Y/O,REDUCIBL 1980 Hernia repair, inguinal: right Allergies: Wdepmfu-Tkl-Sel Reductase Inhibitors; Zetia [Ezetimibe] Current Facility-Administered Medications: influenza vaccine 180 mcg (Patients 65 years and older) (PF) (FLUZONE HIGH DOSE 2017-) 0.5 mL INTRAMUSCULAR ONCE (IMMUNIZATION) dextrose 40 % 15 g 15 g ORAL PRN Or glucagon 1 mg injection (GLUCAGEN) 1 mg INTRAMUSCULAR PRN Or dextrose 50% in water 25 mL syringe 12.5 g INTRAVENOUS PRN insulin lispro pen (rapid acting) (HumaLOG KWIKPEN) SUBCUTANEOUS q 6 H FH: Non-contributory. Negative for any bleeding or clotting disorders. Social Hx: Admits to 50 pack years of tobacco use, denies alcohol illicit drug abuse. ROS: 10 pt ROS neg except in HPI O: Vitals: BP (!) 129/46 Pulse 79 Temp 36.9 ?C (98.4 ?F) (Oral) Resp 18 Ht 179.1 cm (5' 10.5) Wt 88.5 kg (195 lb) SpO2 95% BMI 27.58 kg/m? Labs: No results for input(s): NA, K, CHLOR, CO2, BUN, CREAT, GLUC, ANION, CA, MG, P, ALB, AST, ALT, ALKPHOS, TBILI, DBILI, PHOSINTL, WBC, HB, HCT, PLT, LACT, INR, PH, PCO2, PO2, BE, HCO3 in the last 72 hours. Invalid input(s): LISC Physical exam: General: AANDO x 3; NAD. Cooperative throughout entire interview Head: Atraumatic Neck: supple Cards: RRR Lungs: Non-labored breathing Abdomen: Soft, non-distended. RUQ tenderness, no rebound or guarding. No jaundice appreciated. Neuro: Grossly intact Extremities: Moves all extremities. Imaging: US abd - Multiple views of reviewed and demonstrate a non-distended gallbladder. GB wall measures 9 mm with negative sonographic Brown's sign with pericholecystic fluid. Multiple gallstones and sludge are seen within the gallbladder. CBD measures [address] abd - GB wall thickening with small amount of pericholecystic fluid. Diffuse circumferential wall thickening of hepatic flexure also seen. A/P: 77 year old male with acute cholecystitis - Admit to general surgery - Pain control with Tylenol, oxy and morphine as needed - NPO at midnight (0001, 04/26/2018), IVF start at midnight as well - AM labs - CBC, BMP, LFTs - GI prophylaxis - DVT Ppx - lovenox 40mg daily - Abx - Zosyn - Discussed with Dr. Cabrales, who agrees with plan. Delano Perkins MD 9:22 PM April 26, 2018 Previous Version Neva Moreland APRN.VALVE STEAMER 04/27/2018 7:01 AM Signed Emergency General Surgery Progress Note SERVICE DATE: 04/27/2018 TIME: 0625 SUBJECTIVE: No acute overnight events. Reports pain controlled and slept fair. Has been NPO since midnight for surgery today. States no questions currently about plan of care Tolerating diet DIET NPO Nausea No Emesis No Flatus Yes Bowel movement No Pain Controlled Yes OBJECTIVE: Vitals: Temp (24hrs), Av ?C (98.6 ?F), Min:36.9 ?C (98.4 ?F), Max:37.1 ?C (98.8 ?F) BP (!) 119/45 Pulse 74 Temp 37.1 ?C (98.8 ?F) (Temporal Artery) Resp 18 Ht 179.1 cm (5' 10.5) Wt 88.5 kg (195 lb) SpO2 94% BMI 27.58 kg/m? O2 Therapy: Room Air IANDO: Date 04/26/18699 - 04/27/18 0604/27/18699 - 04/28/18 0659 Shift 3030-6495 5493-8562 9994-0841 24 Hour Total 1829-3331 9221-0232 4017-6291 24 Hour Total I N T A K E IV 2028 2028 D5 LR 929 929 NS 0.9% 1000 1000 Zosyn IV 100 100 Shift Total 2028 2028 O U T P U T Urine 475 475 Void (ml) 475 475 Shift Total 475 475 Weight (kg) 88.5 88.5 88.5 88.5 88.5 88.5 88.5 MEDICATIONS Current Facility-Administered Medications: potassium chloride iv piggyback 20 mEq/100 mL 20 mEq INTRAVENOUS q 1 H influenza vaccine 180 mcg (Patients 65 years and older) (PF) (FLUZONE HIGH DOSE 2017-) 0.5 mL INTRAMUSCULAR ONCE (IMMUNIZATION) dextrose 40 % 15 g 15 g ORAL PRN Or glucagon 1 mg injection (GLUCAGEN) 1 mg INTRAMUSCULAR PRN Or dextrose 50% in water 25 mL syringe 12.5 g INTRAVENOUS PRN insulin lispro pen (rapid acting) (HumaLOG KWIKPEN) SUBCUTANEOUS q 6 H NaCl 0.9% 2-10 mL 2-10 mL INTRAVENOUS q 12 H enoxaparin 40 mg injection (LOVENOX) 40 mg SUBCUTANEOUS DAILY dextrose 5% in LR infusion (D5-LR) 125 mL/hr INTRAVENOUS CONTINUOUS oxyCODONE IR 5-10 mg tab(s) (ROXICODONE) 5-10 mg ORAL q 6 H PRN morphine 2 mg injection 2 mg INTRAVENOUS q 3 H PRN acetaminophen 650 mg tab(s) (TYLENOL) 650 mg ORAL q 6 H pantoprazole 40 mg injection (PROTONIX) 40 mg INTRAVENOUS DAILY (6 AM) docusate sodium 100 mg cap(s) (COLACE) 100 mg ORAL BID piperacillin-tazobactam iv piggyback 3.375 g in dextrose (iso- osmotic) 50 mL (ZOSYN) 3.375 g INTRAVENOUS q 6 H Labs: Recent Labs 04/27/18 0407 04/26/18 2230 NA 135* -- K 3.2* -- CHLOR 104 -- CO2 22 -- BUN 24* -- CREAT 1.23* -- GLUC 180* -- ANION 12 -- CA 7.8* -- ALB 2.2* -- AST 11 -- ALT 15 -- ALKPHOS 90 -- TBILI 0.9 -- WBC 22.04* 26.61* HB 11.8* 12.3* HCT 36.1* 37.9* PLT 308 320 Exam: GENERAL: No distress, Alert NEURO: AANDOx3, CN II-XII grossly intact HEENT: normocephalic, atraumatic LUNGS: Unlabored breathing on room air, breath sounds clear CARDIAC: Regular rate and rhythm as above ABDOMEN: Soft, TTP RUQ, non-distended with bowel sounds EXTREMITIES: BELLO, No deformities, No edema, PPP SKIN: Skin color, texture, turgor normal ASSESSMENT AND PLAN: Active Hospital Problems Diagnosis Date Noted - Acute cholecystitis 04/26/2018 77 year old male with acute cholecystitis - Pain control - NPO/IVF - Zosyn - Lovenox, Protonix, IPCs - Hypokalemia: replete IV - For lap evelia today SIGNATURE: Neva Moreland APRN.VALVE [employer]ER PATIENT NAME: Lanny Olivier DATE: April 27, 2018 TIME: 6:14 AM Emergency General Surgery Service Pager: For questions or concerns Mon-Thu 6a-5p please page [phone]. After 5pm and on Weekends and Holidays, please page [phone]. Paula Cox, RN, RN 04/27/2018 6:59 AM Signed Nursing Progress Note Patient Name: Lanny Olivier [id number] RN left message with patient's , Clarisa per pt's request to inform her that he will be going to surgery today. This note was completed by: TYRESE Robins MD 04/27/2018 9:17 AM Signed ANESTHESIOLOGY DAY OF SURGERY NOTE SERVICE DATE: 04/27/2018 SERVICE TIME: 9:16 AM : 1940 Procedure(s) (LRB): LAPAROSCOPIC CHOLECYSTECTOMY Possible Grams (N/A) Surgeon(s): Ramone Love Estimated body mass index is 27.58 kg/m? as calculated from the following: Height as of this encounter: 179.1 cm (5' 10.5). Weight as of this encounter: 88.5 kg (195 lb). Most recent hematocrit and potassium results: Hematocrit 36.1 04/27/2018 Potassium 3.2 04/27/2018 ANES DOS/PREOP NOTE: Vitals: 04/26/18 2100 04/27/18 0358 04/27/18 0708 04/27/18 0810 BP: (!) 119/45 (!) 121/49 (!) 121/35 Pulse: 74 74 72 Resp: Temp: 37.1 ?C (98.8 ?F) 37.6 ?C (99.7 ?F) 36.5 ?C (97.7 ?F) TempSrc: Temporal Artery Oral Temporal Artery SpO2: 94% 93% 94% Weight: 88.5 kg (195 lb) 88.5 kg (195 lb) Height: 179.1 cm (5' 10.5) 179.1 cm (5' 10.5) ACTIVE PROBLEM LIST Mixed Hyperlipidemia Primary localized osteoarthrosis, lower leg Patellar Tendinitis Unspecified corneal disorder Congenital nuclear cataract Generalized Osteoarthrosis, Unspecified Site PAIN JOINT, KNEE Pernio Statin Intolerance Well Adult Exam Colon Cancer Screening Essential Hypertension With Goal Blood Pressure Less Than 130/85 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, With Long-Term Current Use of Insulin (Hcc) Benign Non-Nodular Prostatic Hyperplasia Without Lower Urinary Tract Symptoms Elevated Prostate Specific Antigen (Psa) Diabetic Eye Exam (Hcc) Medicare Annual Wellness Visit, Subsequent Acute Cholecystitis 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 - Diverticulosis of colon (without mention of hemorrhage) - Essential hypertension, benign - Frostbite of foot 09/06/2010 - GENERAL OSTEOARTHROSIS 01/02/2009 Knees - History of smoking quit 2003 - Hyperplasia of prostate - Internal hemorrhoids without mention of complication - Other and unspecified hyperlipidemia - Patellar tendinitis 1994 - Primary localized osteoarthrosis, lower leg 1994 spurring left knee, calcified soft tissue - Type II or unspecified type diabetes mellitus without mention of complication, not stated as uncontrolled - 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 PAST SURGICAL HISTORY Procedure Laterality Date - 2D ECHO (EXEP) 06/25/2017 EF=60%, no valve issues - APPENDECTOMY 1966 - COLONOSCOP W/ OR W/O [facility] SPEC 10/15/06 repeat due 2016 - FECAL OCCULT BLOOD TEST 03/14/2016 Neg - REMV CATARACT EXTRACAP,INSERT LENS 2011 bilateral - REPAIR ING HERNIA,5+Y/O,REDUCIBL 1981 Hernia repair, inguinal: right FAMILY HISTORY Problem Relation Age of Onset - Stroke Father age 77 - Cancer Mother age 76 cancer stomach - Diabetes Brother age 62 - Coronary Artery Disease Brother age 42 Social History: Social History Substance Use Topics - Smoking status: Former Smoker Packs/day: 1.00 Years: 40.00 Types: Cigarettes - Smokeless tobacco: Never Used Comment: QUIT 2003 - Alcohol use No No current facility-administered medications on file prior to encounter. Current Outpatient Prescriptions on File Prior to Encounter: amLODIPine (NORVASC) 2.5 mg tablet Take 1 tablet by mouth once daily. lisinopril-hydrochlorothiazide (PRINZIDE, ZESTORETIC) 20-25 mg per tablet Take 1 tablet by mouth once daily. insulin glargine (LANTUS SOLOSTAR, BASAGLAR KWIKPEN) 100 unit/mL (3 mL) inpn Inject 34 Units subcutaneously daily at bedtime. insulin aspart U-100 (NOVOLOG FLEXPEN U-100 INSULIN) 100 unit/mL inpn Inject subcutaneously with first bite of food, 6 units w/ breakfast, lunch and dinner aspirin, enteric coated (ASPIRIN, ENTERIC COATED) 81 mg EC tablet Take 1 tablet by mouth once daily. metFORMIN ER (GLUCOPHAGE XR) 500 mg 24 hr tablet Take 2 tablets by mouth twice daily before meals. Insulin [place], Disposable, (BD ULTRA-FINE MIAN PEN NEEDLES) 32 gauge x 5/32 ndle Use one needle for each dose. 4/day. Insulin Syringe-Needle U-100 (BD INSULIN SYRINGE ULTRA-FINE) 0.5 mL 31 gauge x 5/16 syrg Use daily as directed Lancets (ONE TOUCH ULTRASOFT LANCETS) Misc lancets Use as directed blood sugar diagnostic(ONE TOUCH ULTRA TEST STRIPS) Test blood sugar 3-4 times per day. Dx: 250.00. Insulin Dep: Yes Current Facility-Administered Medications: [MAR Hold due to Transfer] potassium chloride iv piggyback 20 mEq/100 mL 20 mEq INTRAVENOUS q 2 HR Neva Ramírez (Continuous Conveyor Screen Drier) Aniceto Last Rate: 50 mL/hr at 04/27/18635 20 mEq at 04/27/18635 [MAR Hold due to Transfer] influenza vaccine 180 mcg (Patients 65 years and older) (PF) (FLUZONE HIGH DOSE ) 0.5 mL INTRAMUSCULAR ONCE (IMMUNIZATION) Ramone Love [MAR Hold due to Transfer] dextrose 40 % 15 g 15 g ORAL PRN Lazaro Kenny Or [MAR Hold due to Transfer] glucagon 1 mg injection (GLUCAGEN) 1 mg INTRAMUSCULAR PRN Lazaro Kenny Or [MAR Hold due to Transfer] dextrose 50% in water 25 mL syringe 12.5 g INTRAVENOUS PRN Lazaro Kenny [MAR Hold due to Transfer] insulin lispro pen (rapid acting) (HumaLOG KWIKPEN) SUBCUTANEOUS q 6 H Lazaro Kenny 1 Units at 04/27/18 0552 [MAR Hold due to Transfer] NaCl 0.9% 2-10 mL 2-10 mL INTRAVENOUS q 12 H Delano Perkins MD 3 mL at 04/26/18 2200 [MAR Hold due to Transfer] enoxaparin 40 mg injection (LOVENOX) 40 mg SUBCUTANEOUS DAILY Delano Perkins MD [MAR Hold due to Transfer] dextrose 5% in LR infusion (D5- LR) 125 mL/hr INTRAVENOUS CONTINUOUS Delano Perkins MD Last Rate: 125 mL/hr at 04/27/18 0551 125 mL/hr at 04/27/18 0551 [MAR Hold due to Transfer] oxyCODONE IR 5-10 mg tab(s) (ROXICODONE) 5-10 mg ORAL q 6 H PRN Delano Perkins MD [MAR Hold due to Transfer] morphine 2 mg injection 2 mg INTRAVENOUS q 3 H PRN Delano Perkins MD [MAR Hold due to Transfer] acetaminophen 650 mg tab(s) (TYLENOL) 650 mg ORAL q 6 H Delano Perkins MD [MAR Hold due to Transfer] pantoprazole 40 mg injection (PROTONIX) 40 mg INTRAVENOUS DAILY (6 AM) Delano Perkins MD 40 mg at 04/27/18 0551 [MAR Hold due to Transfer] docusate sodium 100 mg cap(s) (COLACE) 100 mg ORAL BID Delano Perkins MD [MAR Hold due to Transfer] piperacillin-tazobactam iv piggyback 3.375 g in dextrose (iso-osmotic) 50 mL (ZOSYN) 3.375 g INTRAVENOUS q 6 H Delano Perkins MD Last Rate: 100 mL/hr at 04/27/18 0552 3.375 g at 04/27/18 05 Allergies: ALLERGIES Allergen Reactions - Ararfpk-Rti-Dau Red* Intolerance myalgia - Zetia [Ezetimibe] Myalgia DOS EXAM: Adequate NPO status: Yes Anesthetic risks, benefits, alternatives, personnel and consent discussed: Yes Patient agrees to proceed: Yes Previous Anesthesia: No history of adverse event. Airway Assessment: MP 2; Neck ROM: Limited Flexion and Extension; Airway Evaluation: No significant abnormalities Symptoms of Sleep Apnea: Hypertension, Age over 50 (77 year old) and Male gender Dentition: Teeth intact Additional Physical Exam: Lungs: Patient health status unchanged since recent history and physical. See history and physical for exam findings. Cardiac: Patient health status unchanged since recent history and physical. See history and physical for exam findings. Additional Pertinent Findings: N/A Blood Products: Not anticipated for this procedure. Anesthetic Plan: General, Standard ASA Monitors Pain Management Plan: Parenteral or Oral ASA Class: 3 Other Medical Problems: None Chronic Beta Roberta medication administered within 24 hours: N/A I have interviewed and examined the patient. I have reviewed the medical record and/or the pre-anesthesia evaluation, pertinent labs, and test results. Significant changes in the patient's condition since the History and Physical, not otherwise documented in primary service progress notes: No This contains updated information obtained within 48 hours of Surgery/Procedure. SIGNATURE: Cheo Mckeon MD PATIENT NAME: Lanny Olivier DATE: April 27, 2018 TIME: 9:16 AM CSN: [id number] Progress Notes ([facility]): Darya Dickey, RN, RN 04/26/2018 11:53 AM Signed reports that pt had chest pain Edilberto night all night in the am he was diaphoretic checked blood sugar and it was in the 76. Today pt is very week and having difficulty walking. No SOB or chest pain today and blood sugar was in the 80's today. Pt was advised to go to the ER and agreed. Delano Epperson MD 04/26/2018 12:57 PM Signed Agree with need for ER janie. 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 - Diverticulosis of colon (without mention of hemorrhage) - Essential hypertension, benign - Frostbite of foot 09/06/2010 - GENERAL OSTEOARTHROSIS 01/02/2009 Knees - History of smoking quit 2003 - Hyperplasia of prostate - Internal hemorrhoids without mention of complication - Other and unspecified hyperlipidemia - Patellar tendinitis 1994 - Primary localized osteoarthrosis, lower leg 1994 spurring left knee, calcified soft tissue - Type II or unspecified type diabetes mellitus without mention of complication, not stated as uncontrolled - 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 PAST SURGICAL HISTORY Procedure Laterality Date - 2D ECHO (EXEP) 06/25/2017 EF=60%, no valve issues - APPENDECTOMY 1966 - COLONOSCOP W/ OR W/O [facility] SPEC 10/15/06 repeat due 2016 - FECAL OCCULT BLOOD TEST 03/14/2016 Neg - REMV CATARACT EXTRACAP,INSERT LENS 2011 bilateral - REPAIR ING HERNIA,5+Y/O,REDUCIBL 1981 Hernia repair, inguinal: right Yzlmide-Fjn-Cet Reductase Inhibitors; Zetia [Ezetimibe] Medications reviewed: Yes FAMILY HISTORY Problem Relation Age of Onset - Stroke Father age 77 - Cancer Mother age 76 cancer stomach - Diabetes Brother age 62 - Coronary Artery Disease Brother age 42 SOCIAL HISTORY: Social History Marital status: Spouse name: Ronna Years of education: Number of children: 4 Occupational History Occupation Employer Comment retired [employer] Social History Main Topics Smoking status: Former Smoker Packs/day: 1.00 Years: 40.00 Types: Cigarettes Smokeless tobacco: Never Used Comment: QUIT 2003 Alcohol use: No Drug use: No Sexual activity: Yes Partners with: Female 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 He watches his diet for sodium, low fat and low cholesterol all of the time. List of current specialists seen: optho End of Live Planning discussed including patients advanced directive wishes: Yes I am willing to follow Lanny's advanced directives. Depression screen He in the past two weeks denies having felt down, depressed, hopeless or with little interest or pleasure in doing things. Functional Ability/Safety Screen 1. Was the patient's timed Up and Go test unsteady or longer than 30 seconds? No 2. Does the patient need help with the phone, transportation, shopping,preparing meals, housework, laundry, medications or managing money? No 3. Does your home have rugs in the hallway, lack of grab bars in the bathroom, lack of handrails on the stairs or have poor lighting? No Hearing Evaluation: normal PHYSICAL EXAM BP 110/60 Pulse 80 Resp 20 Ht 179.1 cm (5' 10.5) Wt 91.2 kg (201 lb) BMI 28.43 kg/m? Alert and oriented X 3: YES Body mass index is 28.43 kg/m?. Sees optho See below ASSESSMENT/PLAN: 77 year old male The following prevention plan was discussed during the office visit and provided to the patient: See below Delano Epperson MD Chief Complaint Patient presents with: Physical HPI Lanny Olivier is a 77 year old male who presents here today for extensive. Patient with Hx as reviewed below. Since last being in was in the hospital in late Apr with viral meningitis and then spent 3 weeks in SNF for strengthening. Patient notes BS's dropping too low and adjusted his Lantus down to 34 units a day and FBS' have been 95-100. Past medical history, appointments, medications, allergies reviewed. 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 - Diverticulosis of colon (without mention of hemorrhage) - Essential hypertension, benign - Frostbite of foot 09/06/2010 - GENERAL OSTEOARTHROSIS 01/02/2009 Knees - History of smoking quit 2003 - Hyperplasia of prostate - Internal hemorrhoids without mention of complication - Other and unspecified hyperlipidemia - Patellar tendinitis 1994 - Primary localized osteoarthrosis, lower leg 1994 spurring left knee, calcified soft tissue - Type II or unspecified type diabetes mellitus without mention of complication, not stated as uncontrolled - 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 Previous Surgical History PAST SURGICAL HISTORY Procedure Laterality Date - 2D ECHO (EXEP) 06/25/2017 EF=60%, no valve issues - APPENDECTOMY 1966 [facility] repeat due 2016 - FECAL OCCULT BLOOD TEST 03/14/2016 Neg - REMV CATARACT EXTRACAP,INSERT LENS 2011 bilateral - REPAIR ING HERNIA,5+Y/O,REDUCIBL 1981 Hernia repair, inguinal: right Family History FAMILY HISTORY Problem Relation Age of Onset - Stroke Father age 77 - Cancer Mother age 76 cancer stomach - Diabetes Brother age 62 - Coronary Artery Disease Brother age 42 Patient Allergies ALLERGIES Allergen Reactions - Swngiqc-Tsv-Cdx Red* Intolerance myalgia - Zetia [Ezetimibe] Myalgia Current Medications Current Outpatient Prescriptions on File Prior to Visit: metFORMIN ER (GLUCOPHAGE XR) 500 mg 24 hr tablet Take 2 tablets by mouth twice daily before meals. lisinopril-hydrochlorothiazide (PRINZIDE, ZESTORETIC) 20-25 mg per tablet Take 1 tablet by mouth once daily. amLODIPine (NORVASC) 2.5 mg tablet Take 1 tablet by mouth once daily. Insulin [place], Disposable, (BD ULTRA-FINE MIAN PEN NEEDLES) 32 gauge x 5/32 ndle Use one needle for each dose. 4/day. insulin aspart (NOVOLOG FLEXPEN) 100 unit/mL inpn Inject subcutaneously with first bite of food, 6 units w/ breakfast, lunch and dinner Insulin Syringe-Needle U-100 (BD INSULIN SYRINGE ULTRA-FINE) 0.5 mL 31 gauge x 5/16 syrg Use daily as directed Lancets (ONE TOUCH ULTRASOFT LANCETS) Misc lancets Use as directed blood sugar diagnostic(ONE TOUCH ULTRA TEST STRIPS) Test blood sugar 3-4 times per day. Dx: 250.00. Insulin Dep: Yes No current facility-administered medications on file prior to visit. 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, 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 HOBBY HAZARD No SLEEP CONCERN No STRESS CONCERN No WEIGHT CONCERN No DIET No BACK CARE No EXERCISE Yes Comment:farms: [employer] HELMET No SEAT BELT No SELF EXAMS No Social History Narrative 4 sons Review of Symptoms REVIEW OF SYSTEMS GENERAL: No weight loss, malaise or fevers HEENT: Negative for frequent or significant headaches, significant change in vision, significant vision problems, significant ear problems or hearing loss, nasal discharge, or nose bleeds, sore throat, difficulty swallowing, mouth lesions, hoarseness NECK: Negative for lumps, goiter, pain and significant neck swelling RESPIRATORY: Negative for cough, hemoptysis, wheezing, COPD, dyspnea or shortness of breath CARDIOVASCULAR: Negative for chest pain, leg swelling, hypertension, CHF or palpitations GI: No nausea, vomiting, or diarrhea, No heartburn or reflux symptoms and no blood : No history of dysuria or blood MUSCULOSKELETAL: Negative for joint pain or swelling, back pain or muscle pain SKIN: Negative for lesions, rash, and itching PSYCH: Negative for sleep disturbance, mood disorder and recent psychosocial stressors HEMATOLOGY/LYMPHOLOGY: Negative for prolonged bleeding, bruising easily or swollen nodes ENDOCRINE: Negative for cold or heat intolerance. See HPI NEURO: No history of headaches, syncope, paralysis, seizures or tremors EXAM: BP 110/60 Pulse 80 Resp 20 Ht 179.1 cm (5' 10.5) Wt 91.2 kg (201 lb) BMI 28.43 kg/m? Last 6 Encounter Wt Readings: Date: Wt: 12/07/2017 91.2 kg (201 lb) 06/09/2017 95.7 kg (211 lb) 11/14/2016 95.3 kg (210 lb) 07/15/2016 96.2 kg (212 lb) 02/27/2016 95.3 kg (210 lb) 10/05/2015 97.5 kg (215 lb) General Appearance: Well appearing, alert, in no acute distress, well-hydrated, well nourished., Overweight. Skin: Skin color, texture, turgor normal, no suspicious rashes or lesions. Head: Normocephalic, no masses, lesions, tenderness or abnormalities. Eyes: Anicteric sclera. Pupils are equally round and reactive to light. Extraocular movements are intact. . Ears: External ears normal, canals clear. Nose/Sinuses: Nares normal, septum midline, mucosa normal, no drainage or sinus tenderness. Oropharynx: Lips, mucosa, and tongue normal, teeth and gums normal, oropharynx has a papule on the right posterior throat. Neck: Supple, no adenopathy; thyroid symmetric, normal size, no bruits. Lungs: Lungs clear to auscultation. No wheezing, rhonchi, rales. Heart: RRR without murmur, gallop, or rubs. No ectopy. Abdomen: Normal abdominal exam, Abdomen soft, non-tender. Bowel sounds normal. No masses, organomegaly. Extremities: No deformities, edema, skin discoloration. Musculoskeletal: Muscular strength intact, No joint swelling, deformity, or tenderness. Peripheral Pulses: Normal. Neurologic: Gait normal. Reflexes normal and symmetric. Sensation to light touch and crainal nerves 2-12 intact.. Genitalia: Normal, Penis normal. No urethral discharge. Scrotum normal to palpation. No hernia.. Rectal: Deferred exam. Seeing Urology Feet: Shoes and socks removed, No deformities, ulcers, calluses, normal distal pulses, sensitive to 10 gm monofilament and vibratory perception normal Health Maintenance List DTAP,TDAP,TD(2 - Tdap) due on 12/14/2012 COLORECTAL CANCER SCREENING,SEE MODIFIER due on 10/15/2016 DILATED RETINAL EXAM due on 02/05/2017 INFLUENZA(1) due on 01/23/2018 HBA1C due on 05/29/2018 URINE ALBUMIN CREATININE RATIO due on 06/02/2018 DIABETIC FOOT EXAM due on 06/09/2018 LDL due on 11/26/2018 ADULT PREVNAR-13 Completed PNEUMOVAX AGE 65 AND OVER WITH 5YR LOOKBACK Completed Data reviewed Component Latest Ref Rng AND Units 06/02/2017 11/26/2017 Triglyceride <150 mg/dL 102 117 Cholesterol, Total <200 mg/dL 172 169 HDL Cholesterol >39 mg/dL 37 (L) 35 (L) VLDL Cholesterol <30 mg/dL 20 23 LDL Cholesterol <100 mg/dL 115 111 (H) Fasting Time hrs 12 12 TC:HDL Ratio <5.10 4.65 4.83 LDL:HDL Ratio <2.54 3.11 3.17 (H) Non HDL Cholesterol <130 mg/dL 135 134 (H) Hemoglobin A1C 4.3 - 5.6 % 6.6 (H) 6.7 (H) Estimated Average Glucose mg/dL 143 146 A/P ASSESSMENT/PLAN: 1. Medicare annual wellness visit, subsequent - ICD9: V70.0, ICD10: Z00.00 (primary diagnosis) - Recommended regular aerobic exercise. - Follow up for annual exam in one year. 2. Type 2 diabetes mellitus with retinopathy, with long-term current use of insulin, macular edema presence unspecified, unspecified laterality, unspecified retinopathy severity (HCC) - ICD9: 250.50, 362.01, V58.67, ICD10: E11.319, Z79.4 Controlled. - Continue current medications - Daily Asprin therapy recommended - BP goal of <130/80 - LDL goal of <100 3. Essential hypertension with goal blood pressure less than 130/85 - ICD9: 401.9, ICD10: I10 - good control - Continue current medication(s) - Recommended regular aerobic exercise. - Recommend home blood pressure monitoring, to bring results in on next visit - Goal of BP <130/80 4. Mixed hyperlipidemia - ICD9: 272.2, ICD10: E78.2 - adequate control with statin resistance - Encouraged following a low fat, low cholesterol diet. - Discussed the benefits of regular aerobic exercise and weight loss. - Encouraged following a low carbohydrate, healthy oil intake diet. 5. Benign non-nodular prostatic hyperplasia without lower urinary tract symptoms - ICD9: 600.90, ICD10: N40.0 - Clinically stable seeing urology 6. Elevated prostate specific antigen (PSA) - ICD9: 790.93, ICD10: R97.20 - see above 7. Colon cancer screening - ICD9: V76.51, ICD10: Z12.11 - CONSULT TO GASTROENTEROLOGY 8. 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 Benoit's office to eval growth anterior to right tonsil f/u 6 months routine check CMP, FLP, UA, urine albumin and A1c piror Time entering room was 2:30 PM and time leaving room was 2:57 PM (total face to face time with patient was 27 min) Delano Epperson MD CNOV Observed: 12/07/2017 Status: COMPLETED Source: [place] 2:00 PM [facility] REPOSITORY Office Visit (FAMPWS) LANNY OLIVIER ([id number]) 1940 M Date Time Provider Department 12/07/17 2:00 PM DELANO EPPERSONPWS During your visit today, we recorded the following information about you: Pulse Respiration Blood pressure Weight 80/minute 20/minute 110/60 91.2 kg Height 1.791 m Delano Epperson MD 12/07/2017 3:31 PM Signed Medicare Yearly Visit Medical B eligibilty date not able to find Date of last exam NA 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 - Diverticulosis of colon (without mention of hemorrhage) - Essential hypertension, benign - Frostbite of foot 09/06/2010 - GENERAL OSTEOARTHROSIS 01/02/2009 Knees - History of smoking quit 2003 - Hyperplasia of prostate - Internal hemorrhoids without mention of complication - Other and unspecified hyperlipidemia - Patellar tendinitis 1994 - Primary localized osteoarthrosis, lower leg 1994 spurring left knee, calcified soft tissue - Type II or unspecified type diabetes mellitus without mention of complication, not stated as uncontrolled - 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 PAST SURGICAL HISTORY Procedure Laterality Date - 2D ECHO (EXEP) 06/25/2017 EF=60%, no valve issues - APPENDECTOMY 1966 - COLONOSCOP W/ OR W/O [facility] SPEC 10/15/06 repeat due 2016 - FECAL OCCULT BLOOD TEST 03/14/2016 Neg - REMV CATARACT EXTRACAP,INSERT LENS 2011 bilateral - REPAIR ING HERNIA,5+Y/O,REDUCIBL 1981 Hernia repair, inguinal: right [id number]-Ppy Reductase Inhibitors; Zetia [Ezetimibe] Medications reviewed: Yes FAMILY HISTORY Problem Relation Age of Onset - Stroke Father age 77 - Cancer Mother age 76 cancer stomach - Diabetes Brother age 62 - Coronary Artery Disease Brother age 42 SOCIAL HISTORY: Social History Marital status: Spouse name: Ronna Years of education: Number of children: 4 Occupational History 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 Social History Main Topics Smoking status: Former Smoker Packs/day: 1.00 Years: 40.00 Types: Cigarettes Smokeless tobacco: Never Used Comment: QUIT 2003 Alcohol use: No Drug use: No Sexual activity: Yes Partners with: Female Other Topics 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 He watches his diet for sodium, low fat and low cholesterol all of the time. List of current specialists seen: optho End of Live Planning discussed including patients advanced directive wishes: Yes I am willing to follow Lanny's advanced directives. Depression screen He in the past two weeks denies having felt down, depressed, hopeless or with little interest or pleasure in doing things. Functional Ability/Safety Screen 1. Was the patient's timed Up and Go test unsteady or longer than 30 seconds? No 2. Does the patient need help with the phone, transportation, shopping,preparing meals, housework, laundry, medications or managing money? No 3. Does your home have rugs in the hallway, lack of grab bars in the bathroom, lack of handrails on the stairs or have poor lighting? No Hearing Evaluation: normal PHYSICAL EXAM BP 110/60 Pulse 80 Resp 20 Ht 179.1 cm (5' 10.5) Wt 91.2 kg (201 lb) BMI 28.43 kg/m? Alert and oriented X 3: YES Body mass index is 28.43 kg/m?. Sees optho See below ASSESSMENT/PLAN: 77 year old male The following prevention plan was discussed during the office visit and provided to the patient: See below Delano Epperson MD Chief Complaint Patient presents with: Physical HPI Lanny Olivier is a 77 year old male who presents here today for extensive. Patient with Hx as reviewed below. Since last being in was in the hospital in late Apr with viral meningitis and then spent 3 weeks in SNF for strengthening. Patient notes BS's dropping too low and adjusted his Lantus down to 34 units a day and FBS' have been 95-100. Past medical history, appointments, medications, allergies reviewed. 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 - Diverticulosis of colon (without mention of hemorrhage) - Essential hypertension, benign - Frostbite of foot 09/06/2010 - GENERAL OSTEOARTHROSIS 01/02/2009 Knees - History of smoking quit 2003 - Hyperplasia of prostate - Internal hemorrhoids without mention of complication - Other and unspecified hyperlipidemia - Patellar tendinitis 1994 - Primary localized osteoarthrosis, lower leg 1994 spurring left knee, calcified soft tissue - Type II or unspecified type diabetes mellitus without mention of complication, not stated as uncontrolled - 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 Previous Surgical History PAST SURGICAL HISTORY Procedure Laterality Date - 2D ECHO (EXEP) 06/25/2017 EF=60%, no valve issues - APPENDECTOMY 1966 - COLONOSCOP W/ OR W/O [facility] SPEC 10/15/06 repeat due 2016 - FECAL OCCULT BLOOD TEST 03/14/2016 Neg - REMV CATARACT EXTRACAP,INSERT LENS 2011 bilateral - REPAIR ING HERNIA,5+Y/O,REDUCIBL 1981 Hernia repair, inguinal: right Family History FAMILY HISTORY Problem Relation Age of Onset - Stroke Father age 77 - Cancer Mother age 76 cancer stomach - Diabetes Brother age 62 - Coronary Artery Disease Brother age 42 Patient Allergies ALLERGIES Allergen Reactions - Ddbkixr-Ion-Qdi Red* Intolerance myalgia - Zetia [Ezetimibe] Myalgia Current Medications Current Outpatient Prescriptions on File Prior to Visit: metFORMIN ER (GLUCOPHAGE XR) 500 mg 24 hr tablet Take 2 tablets by mouth twice daily before meals. lisinopril-hydrochlorothiazide (PRINZIDE, ZESTORETIC) 20-25 mg per tablet Take 1 tablet by mouth once daily. amLODIPine (NORVASC) 2.5 mg tablet Take 1 tablet by mouth once daily. Insulin [place], Disposable, (BD ULTRA-FINE MIAN PEN NEEDLES) 32 gauge x 5/32 ndle Use one needle for each dose. 4/day. insulin aspart (NOVOLOG FLEXPEN) 100 unit/mL inpn Inject subcutaneously with first bite of food, 6 units w/ breakfast, lunch and dinner Insulin Syringe-Needle U-100 (BD INSULIN SYRINGE ULTRA-FINE) 0.5 mL 31 gauge x 5/16 syrg Use daily as directed Lancets (ONE TOUCH ULTRASOFT LANCETS) [facility] [place] lancets Use as directed blood sugar diagnostic(ONE TOUCH ULTRA TEST STRIPS) Test blood sugar 3-4 times per day. Dx: 250.00. Insulin Dep: Yes No current facility-administered medications on file prior to visit. 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, 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 HOBBY HAZARD No SLEEP CONCERN No STRESS CONCERN No WEIGHT CONCERN No DIET No BACK CARE No EXERCISE Yes Comment:farms: [employer] BIKE HELMET No SEAT BELT No SELF EXAMS No Social History Narrative 4 sons Review of Symptoms REVIEW OF SYSTEMS GENERAL: No weight loss, malaise or fevers HEENT: Negative for frequent or significant headaches, significant change in vision, significant vision problems, significant ear problems or hearing loss, nasal discharge, or nose bleeds, sore throat, difficulty swallowing, mouth lesions, hoarseness NECK: Negative for lumps, goiter, pain and significant neck swelling RESPIRATORY: Negative for cough, hemoptysis, wheezing, COPD, dyspnea or shortness of breath CARDIOVASCULAR: Negative for chest pain, leg swelling, hypertension, CHF or palpitations GI: No nausea, vomiting, or diarrhea, No heartburn or reflux symptoms and no blood : No history of dysuria or blood MUSCULOSKELETAL: Negative for joint pain or swelling, back pain or muscle pain SKIN: Negative for lesions, rash, and itching PSYCH: Negative for sleep disturbance, mood disorder and recent psychosocial stressors HEMATOLOGY/LYMPHOLOGY: Negative for prolonged bleeding, bruising easily or swollen nodes ENDOCRINE: Negative for cold or heat intolerance. See HPI NEURO: No history of headaches, syncope, paralysis, seizures or tremors EXAM: BP 110/60 Pulse 80 Resp 20 Ht 179.1 cm (5' 10.5) Wt 91.2 kg (201 lb) BMI 28.43 kg/m? Last 6 Encounter Wt Readings: Date: Wt: 12/07/2017 91.2 kg (201 lb) 06/09/2017 95.7 kg (211 lb) 11/14/2016 95.3 kg (210 lb) 07/15/2016 96.2 kg (212 lb) 02/27/2016 95.3 kg (210 lb) 10/05/2015 97.5 kg (215 lb) General Appearance: Well appearing, alert, in no acute distress, well-hydrated, well nourished., Overweight. Skin: Skin color, texture, turgor normal, no suspicious rashes or lesions. Head: Normocephalic, no masses, lesions, tenderness or abnormalities. Eyes: Anicteric sclera. Pupils are equally round and reactive to light. Extraocular movements are intact. . Ears: External ears normal, canals clear. Nose/Sinuses: Nares normal, septum midline, mucosa normal, no drainage or sinus tenderness. Oropharynx: Lips, mucosa, and tongue normal, teeth and gums normal, oropharynx has a papule on the right posterior throat. Neck: Supple, no adenopathy; thyroid symmetric, normal size, no bruits. Lungs: Lungs clear to auscultation. No wheezing, rhonchi, rales. Heart: RRR without murmur, gallop, or rubs. No ectopy. Abdomen: Normal abdominal exam, Abdomen soft, non-tender. Bowel sounds normal. No masses, organomegaly. Extremities: No deformities, edema, skin discoloration. Musculoskeletal: Muscular strength intact, No joint swelling, deformity, or tenderness. Peripheral Pulses: Normal. Neurologic: Gait normal. Reflexes normal and symmetric. Sensation to light touch and crainal nerves 2-12 intact.. Genitalia: Normal, Penis normal. No urethral discharge. Scrotum normal to palpation. No hernia.. Rectal: Deferred exam. Seeing Urology Feet: Shoes and socks removed, No deformities, ulcers, calluses, normal distal pulses, sensitive to 10 gm monofilament and vibratory perception normal Health Maintenance List DTAP,TDAP,TD(2 - Tdap) due on 12/14/2012 COLORECTAL CANCER SCREENING,SEE MODIFIER due on 10/15/2016 DILATED RETINAL EXAM due on 02/05/2017 INFLUENZA(1) due on 01/23/2018 HBA1C due on 05/29/2018 URINE ALBUMIN CREATININE RATIO due on 06/02/2018 DIABETIC FOOT EXAM due on 06/09/2018 LDL due on 11/26/2018 ADULT PREVNAR-13 Completed PNEUMOVAX AGE 65 AND OVER WITH 5YR LOOKBACK Completed Data reviewed Component Latest Ref Rng AND Units 06/02/2017 11/26/2017 Triglyceride <150 mg/dL 102 117 Cholesterol, Total <200 mg/dL 172 169 HDL Cholesterol >39 mg/dL 37 (L) 35 (L) VLDL Cholesterol <30 mg/dL 20 23 LDL Cholesterol <100 mg/dL 115 111 (H) Fasting Time hrs 12 12 TC:HDL Ratio <5.10 4.65 4.83 LDL:HDL Ratio <2.54 3.11 3.17 (H) Non HDL Cholesterol <130 mg/dL 135 134 (H) Hemoglobin A1C 4.3 - 5.6 % 6.6 (H) 6.7 (H) Estimated Average Glucose mg/dL 143 146 A/P ASSESSMENT/PLAN: 1. Medicare annual wellness visit, subsequent - ICD9: V70.0, ICD10: Z00.00 (primary diagnosis) - Recommended regular aerobic exercise. - Follow up for annual exam in one year. 2. Type 2 diabetes mellitus with retinopathy, with long-term current use of insulin, macular edema presence unspecified, unspecified laterality, unspecified retinopathy severity (HCC) - ICD9: 250.50, 362.01, V58.67, ICD10: E11.319, Z79.4 Controlled. - Continue current medications - Daily Asprin therapy recommended - BP goal of <130/80 - LDL goal of <100 3. Essential hypertension with goal blood pressure less than 130/85 - ICD9: 401.9, ICD10: I10 - good control - Continue current medication(s) - Recommended regular aerobic exercise. - Recommend home blood pressure monitoring, to bring results in on next visit - Goal of BP <130/80 4. Mixed hyperlipidemia - ICD9: 272.2, ICD10: E78.2 - adequate control with statin resistance - Encouraged following a low fat, low cholesterol diet. - Discussed the benefits of regular aerobic exercise and weight loss. - Encouraged following a low carbohydrate, healthy oil intake diet. 5. Benign non-nodular prostatic hyperplasia without lower urinary tract symptoms - ICD9: 600.90, ICD10: N40.0 - Clinically stable seeing urology 6. Elevated prostate specific antigen (PSA) - ICD9: 790.93, ICD10: R97.20 - see above 7. Colon cancer screening - ICD9: V76.51, ICD10: Z12.11 - CONSULT TO GASTROENTEROLOGY 8. 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 Benoit's office to eval growth anterior to right tonsil f/u 6 months routine check CMP, FLP, UA, urine albumin and A1c piror Time entering room was 2:30 PM and time leaving room was 2:57 PM (total face to face time with patient was 27 min) MD Delano Linares MD 12/07/2017 2:56 PM Signed Please get fasting labs and urine testing on or after 05/28/2018 prior to next visit. Referring Provider: DELANO EPPERSON [[id number]] Allergies As of Date: 12/07/2017 Noted Allergy Reaction [id number] REDUCTASE INHIBIT*11/16/2014 5 - Intolerance Comments: myalgia ZETIA (EZETIMIBE) 11/14/2016 17 - Myalgia Date Reviewed: 12/07/2017 Reviewed by: Delano Epperson - Fully Assessed Reason for Visit: Physical [83] Primary Visit Diagnosis:Medicare annual wellness visit, subsequent [Z00.00] Comment:last done: 12/07/2017 Other Visit Diagnoses:Type 2 diabetes mellitus with retinopathy, with long-term current use of insulin, macular edema presence unspecified, unspecified laterality, unspecified retinopathy severity (HCC) [E11.319, Z79.4] Essential hypertension with goal blood pressure less than 130/85 [I10] Mixed hyperlipidemia [E78.2] Benign non-nodular prostatic hyperplasia without lower urinary tract symptoms [N40.0] Elevated prostate specific antigen (PSA) [R97.20] Colon cancer screening [Z12.11] Neoplasm of uncertain behavior of mouth [D37.09] Order(s):insulin glargine (LANTUS SOLOSTAR, BASAGLAR KWIKPEN) 100 unit/mL (3 mL) inpnInject 34 Units subcutaneously daily at bedtime.Disp: 15 PenRfl: 1 CONSULT TO ENT [9008] Order #: [id number]: 1 CONSULT TO GASTROENTEROLOGY [9010] Order #: [id number]: 1 aspirin, enteric coated (ASPIRIN, ENTERIC COATED) 81 mg EC tabletTake 1 tablet by mouth once daily.Disp: Rfl: COMP METABOLIC PANEL [SQCMP] Order #: [id number] FUTURE HGB A1C [BARZA9N] Order #: [id number] FUTURE LIPID PANEL BASIC [SQLIPB] Order #: [id number] FUTURE URINALYSIS WITH MICROSCOPIC [SQUAWMIC] Order #: [id number] FUTURE ALBUMIN/CREAT RATIO RND UR [SQUACR] Order #: [id number] FUTURE CBC + DIFF [SQCBCDIF] Order #: [id number] FUTURE Prescriptions as of 12/07/2017 Sig: INSULIN GLARGINE (U-100) 100 * Inject 34 Units subcutaneousl* METFORMIN ER 500 MG TABLET,EX* Take 2 tablets by mouth twice* LISINOPRIL 20 MG-HYDROCHLOROT* Take 1 tablet by mouth once d* AMLODIPINE 2.5 MG TABLET Take 1 tablet by mouth once d* PEN NEEDLE, DIABETIC 32 GAUGE* Use one needle for each dose.* INSULIN ASPART U-100 100 UNI* Inject subcutaneously with fi* INSULIN SYRINGE-NEEDLE U-100 * Use daily as directed LANCETS Use as directed [facility] ULTRA TEST STRIPS Test blood sugar 3-4 times p* ASPIRIN 81 MG TABLET,DELAYED * Take 1 tablet by mouth once d* Problem List As Of Date 12/07/2017 Noted Resolved BENIGN HYPERTENSION [I10] 04/19/2007 Mixed hyperlipidemia [E78.2] Priority: A TOBACCO USE DISORDER [F17.200] 11/11/2005 Primary localized osteoarthrosis, lower leg [M1* Priority: M More... Patellar tendinitis [M76.50] Priority: M Unspecified corneal disorder [H18.9] Priority: G More... More... 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] Priority: G More... Generalized osteoarthrosis, unspecified site [M*INVALID FOR* Priority: M PAIN JOINT, KNEE [M25.569] INVALID FOR* Priority: M Pernio [T69.1XXA] INVALID FOR* Statin intolerance [Z78.9] INVALID FOR* Priority: B Well adult exam [Z00.00] INVALID FOR* Priority: E More... Colon cancer screening [Z12.11] INVALID FOR* Essential hypertension with goal blood pressure*INVALID FOR* Priority: A Disorder of prostate [N42.9] INVALID FOR* Type 2 diabetes mellitus with retinopathy, with*INVALID FOR* Priority: A Benign non-nodular prostatic hyperplasia withou*INVALID FOR* Priority: C Elevated prostate specific antigen (PSA) [R97.2*INVALID FOR* Priority: C More... Diabetic eye exam (HCC) [Z01.00, E11.9] INVALID FOR* Priority: A More... Medicare annual wellness visit, subsequent [Z00*INVALID FOR* Priority: E More... Other instructions from your clinician: Please get fasting labs and urine testing on or after 05/28/2018 prior to next visit. Prescriptions ordered this encounter Disp Refills Start End INSULIN GLARGINE (U-100) 100 UNIT/ML* 15 P* 1 12/07/2017 Class: Med Update Cmt: Please dispense Basaglar form Route: SUBCUTANEOUS Sig: Inject 34 Units subcutaneously daily at bedtime. ASPIRIN 81 MG TABLET,DELAYED RELEASE 12/07/2017 Class: OTC Route: ORAL Sig: Take 1 tablet by mouth once daily. Medications Discontinued During This Encounter insulin glargine (LANTUS SOLOSTAR, B* 15 P* 1 09/29/2017 12/07/2017 Cmt: Please dispense Basaglar form Route: SUBCUTANEOUS Sig: Inject 48 Units subcutaneously daily at bedtime. Disc: Reason for discontinue is not on file. Disposition: Return in about 6 months (around 06/09/2018) for routine. Follow-up and Disposition History Recorded Encounter Status:Closed by DELANO EPPERSON on 12/07/17 LIPID PANEL, BASIC Collected: 11/26/2017 Status: F Source: [place] 8:31 AM [facility] REPOSITORY TYPE CODE TESTS RESULT OUT OF REFERENCE UNITS RANGE LAB CHOL <200 mg/dL Cholesterol 169 Result Comment: <200 mg/dL, Desirable 200-239 mg/dL, Borderline high >239 mg/dL, High LAB TRIGLY <150 mg/dL Triglyceride 117 Result Comment: <150 mg/dL, Normal 150-199 mg/dL, Borderline high 200-499 mg/dL, High >499 mg/dL, Very high LAB HDL >39 mg/dL HDL-Cholesterol Low 35 Result Comment: 40-59 mg/dL, Acceptable >59 mg/dL, High: Negative risk factor for coronary heart disease <40 mg/dL, Low: Positive risk factor for coronary heart disease LAB LDL <100 mg/dL LDL-Cholesterol High 111 Result Comment: <100 mg/dL, Optimal 100-129 mg/dL, Near optimal/above optimal 130-159 mg/dL, Borderline high 160-189 mg/dL, High >189 mg/dL, Very high Secondary prevention optimal LDL Cholesterol levels are recommended to be < 70 mg/dL LAB NONHDL <130 mg/dL Non HDL High Cholesterol 134 Result Comment: <130 mg/dL, Optimal 130-159 mg/dL, Near optimal/above optimal 160-189 mg/dL, Borderline high 190-219 mg/dL, High >219 mg/dL, Very high Secondary prevention optimal non HDL Cholesterol levels are recommended to be < 100 mg/dL LAB FT hrs Fasting Time 12 LAB VLDL <30 mg/dL VLDL Cholesterol 23 LAB TCHDL <5.10 TC:HDL Ratio 4.83 LAB LDLHDL <2.54 High LDL:HDL Ratio 3.17 Result Comment: Reference: 1. National Cholesterol Education Program ATP III Guideline At-A-Glance Quick Desk Reference: National Heart, Lung, and Blood Stow. National Institutes of Health. 2001: NIH Publication No. 01-3305. 2. An International Atherosclerosis Society position paper: global recommendations for the management of dyslipidemia: executive summary, Atherosclerosis. 2014: 232(2):410-413. Performed By: #### LIPB, HBA1C #### [facility] [address] [place], [place] [address] HEMOGLOBIN A1C Collected: 11/26/2017 Status: F Source: [place] 8:31 AM [facility] REPOSITORY TYPE CODE TESTS RESULT OUT OF REFERENCE UNITS RANGE LAB HGBA1C 4.3-5.6 % High Hemoglobin A1c 6.7 LAB HBA0 mg/dL Est. Average Glucose 146 Result Comment: eAG: (Estimated average glucose) is a calculated value from HgbA1c and is hostess party sales representative of the average blood glucose level in the last 2-3 month period. Performed By: #### LIPB, HBA1C #### [facility] [address] [place], [place] [id number] CONSULTATION Observed: 07/02/2017 Status: F Source: [place] 8:30 AM [facility] REPOSITORY [facility] Medical Records Department [address] [place] [address] Consultation 06/26/17 1422 MR#: [id number] Acct: [id number] Name: CHARLINELANNY Wanda Rep #: [id number] : 1940 76 From: Fox Iqbal MD PCP: Delano Epperson MD Status: DIS IN Y Location: MS3 DO455-8 Problem List (1) Mental status change Status: Acute (2) Confusion Status: Acute Reason for Consult Date of Consultation: 06/26/17 Reason for Consultation: AMS, confusion History of Present Illness: The patient is a 76 year old CM with PMH HTN, DM admitted with confusion. Per patient he is not sure why he is admitted to the hospital. History is obtained from medical records and patient. 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 Per documentation he was recently seen for flu like symptoms, had some dental work, and now he was admitted with confusion. CT head and MRI brain following admission did not show any acute vascular changes. Patient was felt to be having NR on admission and hence was started on meningitic dose of antibiotics empirically and had LP this morning reported to show WBCs 163, lymphocytic predominance, protein 102 and glucose 91. At present patient is almost near his baseline, denies any BEARDEN, visual disturbances, focal motor weakness or sensory loss. Per patient he lives with his , does not use cane or walker to ambulate, denies any falls, does drive and does not need any assistance for his ADLs. 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 ] Past Medical History Past Medical History (Chronic Problems): Chronic Problems Type 2 diabetes mellitus (Chronic) Hypertension (Chronic) Tobacco abuse (Chronic) Allergies No Known Allergies Allergy (Verified 06/25/17 12:30) Home Medications: Ambulatory Orders Medication Instructions Recorded Amlodipine [Norvasc] 2.5 mg PO DAILY 06/25/17 Surgical History: appendectomy Psychiatric History: No pertinent psych hx Lives: Spouse/ Significant Other Smoking Status: Current every day smoker Alcohol: None Drugs: None - *Family History Maternal History Items: Cancer Paternal History Items: Diabetes, Stroke Review of Systems Constitutional: Reports: - - complete ROS negative except as documented in HPI Patient Problems: Active and Suspected Problems Mental status change (Acute) Confusion (Acute) Meningitis (Acute) - Physical Exam General: Alert, Oriented x3, Cooperative HEENT: Atraumatic, PERRLA, EOMI, Normocephalic Neck: Supple, No JVD, Negative Carotid Bruits Lungs: Clear to auscultation, Normal air movement Cardiovascular: Regular rate, No murmurs Abdomen: Bowel Sounds Present, Soft, Non Tender Extremities: No edema, Capillary Refill Less than 3 Seconds Skin: No rashes, No breakdown Musculoskeletal: No Tenderness to Palpation of Joints or Extremities Neurological: - - consious, alert, AoA x3 at present, CN 2- 12 grossly intact, moves all 4 extremities, no sensory loss, no cerebellar signs, Reflexes + B/L B/S/T/K/A, gair deferred, plantars b/l mute, mild NR Psych/Mental Status: Normal Affect, Appropriate Vital Signs Temp Pulse Resp BP Pulse Ox 98.0 F 70 15 125/66 H 96 06/26/17 04:00 06/26/17 14:14 06/26/17 04:00 06/26/17 04:00 06/26/17 00:00 Oxygen Delivery Method Room Air Weight: 89.3 kg Body Mass Index (BMI) 28.2 Intake and Output for Last 24 Hours Intake Total 360 / 360 2286 / 2286 Output Total 200 / 200 1213 / 1213 Balance 160 / 160 1073 / 1073 Microbiology Past 72 Hours 06/26/17 11:39 Gram Stain - Final Csf, Spinal Fluid 06/25/17 14:36 Respiratory Panel (PCR) - Final Mucosa - Nasopharyngeal Laboratory Tests Past 24 Hrs WBC 7.1 RBC 5.41 Hgb 14.9 Hct 43.0 WBC RBC Hgb Hct MCV MCH MCHC WBC RBC Hgb Hct MCV MCH MCHC RDW RDW Differential Plt Count MPV Immature Gran % (Auto) Neut % (Auto) Lymph % (Auto) POC Glucose POC Glucose 164 H 201 H Assessment/Plan Active and Suspected Problems Mental status change (Acute) Confusion (Acute) Meningitis (Acute) The patient is a 76 year old CM with PMH HTN, DM admitted with confusion. Per patient he is not sure why he is admitted to the hospital. History is obtained from medical records and patient. 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 Per documentation he was recently seen for flu like symptoms, had some dental work, and now he was admitted with confusion. CT head and MRI brain following admission did not show any acute vascular changes. Patient was felt to be having NR on admission and hence was started on meningitic dose of antibiotics empirically and had LP this morning reported to show WBCs 162, lymphocytic predominance, protein 102 and glucose 91. At present patient is almost near his baseline, denies any BEARDEN, visual disturbances, focal motor weakness or sensory loss. Per patient he lives with his , does not use cane or walker to ambulate, denies any falls, does drive and does not need any assistance for his ADLs. 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 -Recommend starting empirical Acyclovir 10mg/kg iv q 8 hrly till HSV PCR results come back -Further management per ID recommendations -GI/DVT prophylaxis -PT/OT -Fall precautions -Please call with questions if any -Thank you for allowing us to participate in patients care and management I spent 60 minutes taking history, doing physical examination, reviewing medical records, coordinating care and counseling patient. Code Visit Inpatient E AND M: [id number] Init Hosp L3 07/02/17 0830 <Electronically signed by Fox Iqbal MD> Date Fxo Iqbal MD Cosigner Signature (if applicable): Date CC: Manuel Iqbal MD; Delano Epperson MD; Beto Valentino MD Signed COMPREHENSIVE METABOLIC Collected: 06/30/2017 Status: F Source: [facility] PANEL 4:53 AM [facility] REPOSITORY TYPE CODE TESTS RESULT OUT OF REFERENCE UNITS RANGE LAB GLU 70-99 mg/dL High Glucose 138 Result Comment: This test result might be falsely depressed or falsely elevated on samples drawn from patients taking Sulfasalazine and Sulfapyridine. Venipuncture should occur prior to taking either of these drugs. LAB BUN 8-25 mg/dL BUN 11 LAB CREA 0.80-1.30 mg/dL Creatinine 1.00 LAB eGFR ml/min/1.73sq .m eGFR,NonAfrican-Am erican >=60 Result Comment: Non- GFR Calc eGFR is an estimated Glomerular Filtration Rate based on the value of the patient's serum creatinine. In outpatients, eGFR should be used as a helpful tool in screening for CKD. In inpatients or patients with acute renal failure, eGFR represents the GFR at the moment of the draw and should be used with caution. LAB eGFRB ml/min/1.73sq.m eGFR, -British >=60 Result Comment: GFR Calc LAB CALCM 8.4-10.2 mg/dL Calcium 8.9 LAB NA 135-145 mmol/L Sodium 136 LAB K 3.5-5.1 mmol/L Potassium 4.1 LAB CL 98-108 mmol/L Chloride 103 LAB CO2 21-32 mmol/L CO2 26 LAB AST 0-45 U/L AST (SGOT) 11 Result Comment: This test result might be falsely depressed or falsely elevated on samples drawn from patients taking Sulfasalazine and Sulfapyridine. Venipuncture should occur prior to taking either of these drugs. LAB ALT 14-65 U/L ALT (SGPT) 30 Result Comment: This test result might be falsely depressed or falsely elevated on samples drawn from patients taking Sulfasalazine and Sulfapyridine. Venipuncture should occur prior to taking either of these drugs. LAB ALKP 40-150 U/L Alkaline Phosphatase 84 LAB BILIT 0.3-1.2 mg/dL Bilirubin,Total 0.6 LAB PROT 6.0-8.0 g/dL Protein, Total 6.7 LAB ALB 3.2-5.2 g/dL Albumin Low 3.1 Performed By: #### HBA1C, LIPID, CMET #### Unless otherwise noted, all testing performed by [place] [address] [address], [place] [address] CLIA: [id number] Procurement Consultant: Jez Roy M.D. LIPID PANEL Collected: 06/30/2017 Status: F Source: [facility] 4:53 AM [facility] REPOSITORY TYPE CODE TESTS RESULT OUT OF REFERENCE UNITS RANGE LAB CHOL 100-199 mg/dL Cholesterol Normal 138 LAB TRIG 25-120 mg/dL Triglycerides Normal 114 LAB HDL 40-59 mg/dL Low HDL 29 LAB LDL 10-150 mg/dL LDL Normal 86 LAB VLDL 5-40 mg/dL VLDL Normal 23 LAB CHOL/HDL 3.2-5.0 CHOL/HDL Ratio Normal 4.7 Result Comment: Male Coronary Heart Disease Risk Factor (CHDRF): Average risk= 5.0 1/2 Average risk= 3.4 2 times Average risk= 9.6 Performed By: #### HBA1C, LIPID, CMET #### Unless otherwise noted, all testing performed by [place] [address] CLIA: [id number] Procurement Consultant: Jez Roy M.D. HEMOGLOBIN A1C Collected: 06/30/2017 Status: F Source: [facility] 4:53 AM [facility] REPOSITORY TYPE CODE TESTS RESULT OUT OF REFERENCE UNITS RANGE LAB HBA1C 4.1-6.5 % High Hemoglobin A1C 6.6 Performed By: #### HBA1C, LIPID, CMET #### Unless otherwise noted, all testing performed by [address] [address] CLIA: [id number] Procurement Consultant: Jez Roy M.D. DISCHARGE SUMMARY Observed: 06/29/2017 Status: F Source: [place] 5:04 PM [facility] REPOSITORY [facility] Medical Records Department [address] [place] [address] Discharge Summary 06/29/17 1553 MR#: [id number] Acct: [id number] Name: LANNY OLIVIER Wanda Rep #: [id number] : 1940 76 From: Bran Acevedo MD PCP: Delano Epperson MD Status: ADM IN Location: [place] [address]-1 Discharge Date and Diagnosis - Problem List Patient Problems: Active and Suspected Problems Mental status change (Acute) Confusion (Acute) Meningitis (Acute) Date of Admission: 06/25/17 Date of Discharge: 06/29/17 - Primary Discharge Diagnosis Active and Suspected Problems Mental status change (Acute) Confusion (Acute) Meningitis (Acute) - Secondary Discharge Diagnosis Chronic Problems Type 2 diabetes mellitus (Chronic) Hypertension (Chronic) Tobacco abuse (Chronic) Hospital Course and Treatment Summary of Care Provided: This is a 76-year-old male admitted 06/25/17 due to generalized weakness, altered mental status. He has a past medical history of type 2 diabetes mellitus, hypertension, tobacco use. Brain CT shows chronic changes, sinusitis. Chest x-ray shows no acute abnormality. Respiratory panel negative. MRI of brain shows no evidence of acute intracranial bleed, mass or ischemia. Lumbar spine x-ray shows degenerative changes of the spine. Patient underwent lumbar puncture with CSF S analysis showing 162 WBC with 96 lymphocytes. Antibiotics that were initially initiated for possible bacterial meningitis where discontinued. Infectious disease recommended to continue acyclovir p.o. whilst HSV PCR is still pending. And was noted to be significantly deconditioned and underwent physical therapy and they recommended alf facility. The patient was discharged to a alf home in a stable condition. Physical exam at the time of discharge; vital signs were stable. He was alert and oriented to time place and person. He did not appear to be any form of distress. S1 and S2 heard no murmur or gallop Lung exam was clear to auscultation with no adventitious sounds. Abdomen was soft nontender with normal bowel sounds. extremity exam did not reveal any edema, palpable pulses bilaterally. Neurologic exam was grossly intact. Discharge Diet: No Restrictions Home Medications: Medications to take at Discharge Amlodipine [Norvasc] 2.5 mg PO DAILY 06/25/17 Insulin Aspart [Novolog Flexpen (BKC)] 6 units SC BIDCM 06/25/17 Insulin Glargine,Hum.rec.anlog [Lantus] 48 unit SQ QHS 06/25/17 Lisinopril/Hydrochlorothiazide [Zestoretic 20-25 mg Tablet] 1 each PO DAILY 06/25/17 Metformin HCl [Glucophage] 1,000 mg PO BIDCM 06/25/17 Acyclovir [Zovirax] 800 mg PO 5X/DAY 7 Days tablet 06/29/17 Quetiapine Fumarate [Seroquel] 25 mg PO BID tablet 06/29/17 Following Prescrptions Were Given to Patient: Acyclovir [Zovirax] 800 mg PO 5X/DAY 7 Days tablet Primary Care Physician: Delano Epperson MD [Primary Care Provider] - Disposition: Jail facility Patient Condition:: Fair Meaningful Use Info Meaningful Use Diagnoses (Choose all that apply): None applicable Code Visit Inpatient Santy [place] M: [id number] Disch Hosp 06/29/17 1704 <Electronically signed by Brna Acevedo MD> Date Bran Acevedo MD Cosigner Signature (if applicable): Date CC: Delano Epperson MD; Bran Acevedo MD Signed BEDSIDE GLUCOSE Collected: 06/29/2017 Status: F Source: [place] 4:14 PM [facility] REPOSITORY TYPE CODE TESTS RESULT OUT OF REFERENCE UNITS RANGE LAB L501.080 70-110 mg/dL High BEDSIDE GLU 199 Result Comment: MANAGEMENT OF PATIENT CARE PER NURSING PROTOCOL Performed By: #### L501.080 #### [facility] Point of Care [address] [facility] [place] [address] TRANSFER TO EXTENDED Observed: 06/29/2017 Status: F Source: [facility] 3:54 PM [facility] REPOSITORY [facility] Medical Records Department [address] [place] [address] Transfer to [facility] MR#: [id number] Acct: [id number] Name: LANNY OLIVIER Rep #: [id number] : 1940 76 From: Bran Acevedo MD PCP: Delano Epperson MD Status: ADM IN LANNY OLIVIER (Patient) (Health Ins. Claim No.) (Day of Discharge to Facility) Certification of patient admission REQUIRED AT TIME OF ADMISSION. I CERTIFY THAT POST-HOSPITAL ECF SERVICES ARE REQUIRED TO BE GIVEN ON AN IN-PATIENT BASIS BECAUSE OF THE ABOVE NAMED PATIENT'S NEED FOR LONG TERM CARE ON A CONTINUING BASIS FOR THE CONDITION(S) FOR WHICH HE/SHE WAS RECEIVING IN-PATIENT HOSPITAL SERVICES PRIOR TO HIS/HER TRANSFER TO THE [facility]. 06/29/17 8074 <Electronically signed by Bran Acevedo MD> Date Bran Acevedo MD - Diet 06/25/17 15:50 Diabetic [Diet: Calorie Controlled] Is pt able to select menu?: Yes How many daily calories?: 1800 calorie - Therapies Physical Therapy: Eval and Treat Occupational Therapy: Eval and Treat - Allergies/Procedures Done in Hospital Allergies/Adverse Reactions: Allergies No Known Allergies Allergy (Verified 06/25/17 12:30) - Type of Care/Length of Stay Estimated LOS: Convalescent Care Less Than 30 days Type of Care Needed: Skilled Rehab Potential: Fair Prognosis: Fair - Additional Orders/Day of Discharge H AND P will serve as current which was dated: 06/25/17 Day of Discharge: 06/29/17 - Follow Up Care Primary Care Physician: Delano Epperson MD [Primary Care Provider] - 06/29/17 1554 <Electronically signed by Bran Acevedo MD> Date Bran Acevedo MD CC: Manuel Iqbal MD; Delano Epperson MD; Beto Valentino MD Signed 12 LEAD ELECTROCARDIOGRAM Observed: 06/29/2017 Status: F Source: [place] 3:50 PM [facility] REPOSITORY [facility] Cardiovascular Services [address] [place] [address] 12 Lead EKG 06/25/17 1304 MR#: [id number] Acct: [id number] Name: LANNY OLIVIER Rep #: [id number] : 1940 76 From: Fabián Sales MD Attending Dr: Bran Acevedo MD Status: ADM IN Ordering Dr: Shavon Parker MD Date: 06/25/17 Location: [facility] Sex: M C Admitted: 06/25/17 Test Reason : WEAKNESS Blood Pressure : / mmHG Vent. Rate : 079 BPM Atrial Rate : 079 BPM P-R Int : 210 ms QRS Dur : 114 ms QT Int : 386 ms P-R-T Axes : -25 -28 030 degrees QTc Int : 442 ms Sinus rhythm with 1st degree A-V block Otherwise normal ECG Confirmed by LEROY FINNEGAN, FABIÁN ([id number]), avid editor KOTA WANG ([id number]) on 06/29/2017 3:50:29 PM Referred By: JWAYYED Confirmed By:FABIÁN SALES MD 06/29/17 1550 Date Fabián Sales MD CC: Delano Epperson MD Signed BEDSIDE GLUCOSE Collected: 06/29/2017 Status: F Source: [place] 11:14 AM [facility] REPOSITORY TYPE CODE TESTS RESULT OUT OF REFERENCE UNITS RANGE LAB L501.080 70-110 mg/dL High BEDSIDE GLU 233 Result Comment: MANAGEMENT OF PATIENT CARE PER NURSING PROTOCOL Performed By: #### L501.080 #### [facility] Point of Care [address] [facility] [place], [place] [id number] BEDSIDE GLUCOSE Collected: 06/29/2017 Status: F Source: [place] 6:37 AM [facility] REPOSITORY TYPE CODE TESTS RESULT OUT OF REFERENCE UNITS RANGE LAB L501.080 70-110 mg/dL High BEDSIDE GLU 181 Result Comment: MANAGEMENT OF PATIENT CARE PER NURSING PROTOCOL Performed By: #### L501.080 #### [facility] Point of Care [address] [facility] [place], [place] [address] CBC-COMPLETE BLOOD CNT Collected: 06/29/2017 Status: F Source: [place] NO DIFF 5:00 AM [facility] REPOSITORY TYPE CODE TESTS RESULT OUT OF RANGE REFERENCE UNITS LAB L100.1000 4.4-11.0 K/mm3 High WBC 12.4 LAB L100.1200 4.6-6.2 M/mm3 Normal RBC 5.32 LAB L100.1300 13.0-16.5 g/dl Normal HGB 14.6 LAB L100.1400 40-54 % Normal HCT 43.8 LAB L100.1500 80-94 fL Normal MCV 82.3 LAB L100.1600 27.0-32.0 pg Normal MCH 27.4 LAB L100.1700 32-36 g/gl Normal MCHC 33.3 LAB L100.1810 11.6-14.6 % Normal RDW CV 14.3 LAB L100.1820 35.1-43.9 fl Normal RDW SD 43.1 LAB L100.1900 150-450 K/mm3 Normal PLT 326 LAB L100.2000 6.2-12.0 fl Normal MPV 10.7 Performed By: #### L100.0500 #### [facility] [address] [place], [address] BASIC METABOLIC Collected: 06/29/2017 Status: F Source: [place] PROFILE (BMP) 5:00 AM [facility] REPOSITORY TYPE CODE TESTS RESULT OUT OF RANGE REFERENCE UNITS LAB L501.0100 74-106 mg/dL High GLU 160 Result Comment: Fasting Glucose result greater than or equal to 126 mg/dL suggests DIABETES MELLITUS per A.D.A. criteria. LAB L501.1000 7-18 mg/dL Normal BUN 11 LAB L501.1100 0.70-1.30 mg/dL Normal CREAT,SERUM 0.97 Result Comment: The validity of the calculated GFR AND GFRAA in patients over 70 years has not been determined. Clinical correlation is essential. LAB L501.1110 >60 mL/min Normal EST GFR 80 Result Comment: Non- GFR Calc LAB L501.1115 >60 mL/min Normal EST GFR - AA 97 Result Comment: GFR Calc LAB L501.1255 ml/min Normal Estimated CRCL 67.94 LAB L501.1300 10-20 RATIO Normal BUN/CRE 11.3 LAB L501.2200 8.5-10 mg/dL Normal .1 CA 8.6 LAB L501.5300 136-14 mmol/L Normal 5 NA 136 LAB L501.5600 3.5-5. mmol/L Normal 1 K 4.1 LAB L501.5900 98-107 mmol/L Normal CL 103 LAB L501.6100 21.0-3 mmol/L Normal 2.0 CO2 25.0 LAB L501.6200 5-15 Normal GAP 8 Performed By: #### L500.2500 #### [facility] [address] [place], [address] BEDSIDE GLUCOSE Collected: 06/28/2017 Status: F Source: [place] 8:51 PM [facility] REPOSITORY TYPE CODE TESTS RESULT OUT OF REFERENCE UNITS RANGE LAB L501.080 70-110 mg/dL High BEDSIDE GLU 171 Result Comment: MANAGEMENT OF PATIENT CARE PER NURSING PROTOCOL Performed By: #### L501.080 #### [facility] Point of Care [address] [place] [address] BEDSIDE GLUCOSE Collected: 06/28/2017 Status: F Source: [place] 5:02 PM [facility] REPOSITORY TYPE CODE TESTS RESULT OUT OF REFERENCE UNITS RANGE LAB L501.080 70-110 mg/dL High BEDSIDE GLU 151 Result Comment: MANAGEMENT OF PATIENT CARE PER NURSING PROTOCOL Performed By: #### L501.080 #### [facility] Point of Care [address] [place] [address] BEDSIDE GLUCOSE Collected: 06/28/2017 Status: F Source: [place] 12:25 PM [facility] REPOSITORY TYPE CODE TESTS RESULT OUT OF REFERENCE UNITS RANGE LAB L501.080 70-110 mg/dL High BEDSIDE GLU 164 Result Comment: MANAGEMENT OF PATIENT CARE PER NURSING PROTOCOL Performed By: #### L501.080 #### [facility] Point of Care [address] [place] [address] BEDSIDE GLUCOSE Collected: 06/28/2017 Status: F Source: [place] 6:23 AM [facility] REPOSITORY TYPE CODE TESTS RESULT OUT OF RANGE REFERENCE UNITS LAB L501.080 70-110 mg/dL Normal BEDSIDE GLU 88 Result Comment: MANAGEMENT OF PATIENT CARE PER NURSING PROTOCOL Performed By: #### L501.080 #### [facility] Point of Care [address] [place] [address] CBC-COMPLETE BLOOD CNT Collected: 06/28/2017 Status: F Source: [place] NO DIFF 5:35 AM [facility] REPOSITORY TYPE CODE TESTS RESULT OUT OF RANGE REFERENCE UNITS LAB L100.1000 4.4-11.0 K/mm3 Normal WBC 9.7 LAB L100.1200 4.6-6.2 M/mm3 Normal RBC 5.07 LAB L100.1300 13.0-16.5 g/dl Normal HGB 14.0 LAB L100.1400 40-54 % Normal HCT 41.2 LAB L100.1500 80-94 fL Normal MCV 81.3 LAB L100.1600 27.0-32.0 pg Normal MCH 27.6 LAB L100.1700 32-36 g/gl Normal MCHC 34.0 LAB L100.1810 11.6-14.6 % Normal RDW CV 14.4 LAB L100.1820 35.1-43.9 fl Normal RDW SD 42.0 LAB L100.1900 150-450 K/mm3 Normal PLT 292 LAB L100.2000 6.2-12.0 fl Normal MPV 11.2 Performed By: #### L100.0500 #### [facility] [address] [place], [place], [address] BASIC METABOLIC Collected: 06/28/2017 Status: F Source: [place] PROFILE (BMP) 5:35 AM [facility] REPOSITORY TYPE CODE TESTS RESULT OUT OF RANGE REFERENCE UNITS LAB L501.0100 74-106 mg/dL Normal GLU 74 LAB L501.1000 7-18 mg/dL Normal BUN 14 LAB L501.1100 0.70-1.30 mg/dL Normal 0.80 CREAT,SERUM Result Comment: The validity of the calculated GFR AND GFRAA in patients over 70 years has not been determined. Clinical correlation is essential. LAB L501.1110 >60 mL/min Normal EST GFR 101 Result Comment: Non- GFR Calc LAB L501.1115 >60 mL/min Normal EST GFR - AA 122 Result Comment: GFR Calc LAB L501.1255 ml/min Normal Estimated CRCL 82.38 LAB L501.1300 10-20 RATIO Normal BUN/CRE 17.6 LAB L501.2200 8.5-10 mg/dL Low .1 CA 8.4 LAB L501.5300 136-14 mmol/L Normal 5 NA 136 LAB L501.5600 3.5-5. mmol/L Normal 1 K 3.6 LAB L501.5900 98-107 mmol/L Normal CL 103 LAB L501.6100 21.0-3 mmol/L Normal 2.0 CO2 24.0 LAB L501.6200 5-15 Normal GAP 9 Performed By: #### L500.2500 #### [facility] [address] [place], [place], [address] BEDSIDE GLUCOSE Collected: 06/27/2017 Status: F Source: [place] 10:01 PM [facility] REPOSITORY TYPE CODE TESTS RESULT OUT OF REFERENCE UNITS RANGE LAB L501.080 70-110 mg/dL High BEDSIDE GLU 144 Result Comment: MANAGEMENT OF PATIENT CARE PER NURSING PROTOCOL Performed By: #### L501.080 #### [facility] Point of Care [address] [place] [address] BEDSIDE GLUCOSE Collected: 06/27/2017 Status: F Source: EFFIE 4:23 PM [facility] REPOSITORY TYPE CODE TESTS RESULT OUT OF REFERENCE UNITS RANGE LAB L501.080 70-110 mg/dL High BEDSIDE GLU 141 Result Comment: MANAGEMENT OF PATIENT CARE PER NURSING PROTOCOL Performed By: #### L501.080 #### [facility] Point of Care [address] [place] [address] BEDSIDE GLUCOSE Collected: 06/27/2017 Status: F Source: EFFIE 11:50 AM [facility] REPOSITORY TYPE CODE TESTS RESULT OUT OF REFERENCE UNITS RANGE LAB L501.080 70-110 mg/dL High BEDSIDE GLU 124 Result Comment: MANAGEMENT OF PATIENT CARE PER NURSING PROTOCOL Performed By: #### L501.080 #### [facility] Point of Care [address] [facility] [place] [address] CBC-COMPLETE BLOOD CNT Collected: 06/27/2017 Status: F Source: EFFIE NO DIFF 9:00 AM [facility] REPOSITORY TYPE CODE TESTS RESULT OUT OF RANGE REFERENCE UNITS LAB L100.1000 4.4-11.0 K/mm3 High WBC 11.9 LAB L100.1200 4.6-6.2 M/mm3 Normal RBC 5.14 LAB L100.1300 13.0-16.5 g/dl Normal HGB 14.2 LAB L100.1400 40-54 % Normal HCT 41.5 LAB L100.1500 80-94 fL Normal MCV 80.7 LAB L100.1600 27.0-32.0 pg Normal MCH 27.6 LAB L100.1700 32-36 g/gl Normal MCHC 34.2 LAB L100.1810 11.6-14.6 % Normal RDW CV 14.4 LAB L100.1820 35.1-43.9 fl Normal RDW SD 41.5 LAB L100.1900 150-450 K/mm3 Normal PLT 300 LAB L100.2000 6.2-12.0 fl Normal MPV 10.6 Performed By: #### L100.0500 #### [facility] [address] [place], [address] BASIC METABOLIC Collected: 06/27/2017 Status: F Source: [place] PROFILE (BMP) 9:00 AM [facility] REPOSITORY TYPE CODE TESTS RESULT OUT OF RANGE REFERENCE UNITS LAB L501.0100 74-106 mg/dL High GLU 112 Result Comment: Fasting Glucose result from 110 to <126 mg/dL suggests IMPAIRED HOMEOSTASIS per A.D.A. criteria. LAB L501.1000 7-18 mg/dL Normal BUN 16 LAB L501.1100 0.70-1.30 mg/dL Normal CREAT,SERUM 0.88 Result Comment: The validity of the calculated GFR AND GFRAA in patients over 70 years has not been determined. Clinical correlation is essential. LAB L501.1110 >60 mL/min Normal EST GFR 90 Result Comment: Non- GFR Calc LAB L501.1115 >60 mL/min Normal EST GFR - AA 109 Result Comment: GFR Calc LAB L501.1255 ml/min Normal Estimated CRCL 74.89 LAB L501.1300 10-20 RATIO Normal BUN/CRE 18.2 LAB L501.2200 8.5-10 mg/dL Normal .1 CA 8.5 LAB L501.5300 136-14 mmol/L Normal 5 NA 138 LAB L501.5600 3.5-5. mmol/L Low 1 K 3.3 LAB L501.5900 98-107 mmol/L Normal CL 106 LAB L501.6100 21.0-3 mmol/L Normal 2.0 CO2 24.0 LAB L501.6200 5-15 Normal GAP 8 Performed By: #### L500.2500 #### [facility] [address] [place], [address] BEDSIDE GLUCOSE Collected: 06/27/2017 Status: F Source: EFFIE 6:45 AM [facility] REPOSITORY TYPE CODE TESTS RESULT OUT OF REFERENCE UNITS RANGE LAB L501.080 70-110 mg/dL High BEDSIDE GLU 139 Result Comment: MANAGEMENT OF PATIENT CARE PER NURSING PROTOCOL Performed By: #### L501.080 #### [facility] Point of Care [address] [place] [address] BEDSIDE GLUCOSE Collected: 06/26/2017 Status: F Source: [place] 10:24 PM [facility] REPOSITORY TYPE CODE TESTS RESULT OUT OF REFERENCE UNITS RANGE LAB L501.080 70-110 mg/dL High BEDSIDE GLU 206 Result Comment: MANAGEMENT OF PATIENT CARE PER NURSING PROTOCOL Performed By: #### L501.080 #### [facility] Point of Care [address] [place] [address] CONSULTATION Observed: 06/26/2017 Status: F Source: [place] 4:35 PM [facility] REPOSITORY [facility] Medical Records Department [address] [facility] [place] [address] Consultation 06/26/17 1623 MR#: [id number] Acct: [id number] Name: LANNY OLIVIER Rep #: [id number] : 1940 76 From: Beto Valentino MD PCP: Delano Epperson MD Status: ADM IN Location: [place] [address]-1 Problem List (1) Meningitis Status: Acute Reason for Consult: meningitis Consulted by: Dr. Beltran History of Present Illness: The patient is a 76 year old M shanks who presented with 4- 5 days of mild headache, neck pain, and confusion. No rash, no vision changes, no shingles, no recent cold sores, no recent bug/tick bites. 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 No reports of birds around the farm. No sick contacts. Reports having some cold sores around his mouth when he was young. Was started on amoxicillin as an outpatient recently. Came to ED, CT and MRI done, had LP today. Was started on vanc, amp, ceftriaxone, acyclovir, and dexamethasone. Mental status much better today. Full ROS Performed and neg except as noted above. - Medical History Past Medical History (Chronic Problems): Chronic Problems Type 2 diabetes mellitus (Chronic) Hypertension (Chronic) Tobacco abuse (Chronic) Allergies/Adverse Reactions: Allergies No Known Allergies Allergy (Verified 06/25/17 12:30) Home Medications: Ambulatory Orders Medication Instructions Recorded Amlodipine [Norvasc] 2.5 mg PO DAILY 06/25/17 Vital Signs Temp Pulse Resp BP Pulse Ox 98.0 F 70 15 125/66 H 96 06/26/17 04:00 06/26/17 14:14 06/26/17 04:00 06/26/17 04:00 06/26/17 00:00 Oxygen Delivery Method Room Air Weight: 89.3 kg Body Mass Index (BMI) 28.2 Microbiology Past 72 Hours 06/26/17 11:39 Gram Stain - Final Csf, Spinal Fluid 06/25/17 14:36 Respiratory Panel (PCR) - Final Mucosa - Nasopharyngeal Laboratory Tests Past 24 Hrs WBC 7.1 RBC 5.41 Hgb 14.9 Hct 43.0 WBC RBC Hgb Hct MCV MCH MCHC WBC RBC Hgb Hct MCV MCH MCHC RDW RDW Differential Plt Count MPV Immature Gran % (Auto) Neut % (Auto) Lymph % (Auto) - Other Studies Radiology: [] reviewed Other Studies: [] Route of nutrition/ use of supplements: [] Nutritional Intake: [] IV Site: [] Morales Catheter: [] - Physical Exam General: Alert, Oriented x3, Cooperative, No apparent distress HEENT: Atraumatic, PERRLA, EOMI Neck: Supple - mild soreness with ROM, No Nodes Lungs: Clear to auscultation, Normal air movement Cardiovascular: Regular rate, Regular Rhythm Abdomen: Bowel Sounds Present, Soft, Non Tender, Non-Distended Extremities: No edema Skin: No rashes IV Site: Peripheral, without redness Musculoskeletal: No Tenderness to Palpation of Joints or Extremities Neurological: Cranial nerves II-XII grossly intact - Assessment/Plan Antibiotics: [] Assessment/Plan: [] Active and Suspected Problems Mental status change (Acute) Confusion (Acute) Aseptic meningitis with headache, neck pain, and confusion - no focal neuro findings. Mental status much improved. CSF shows wbc around 160 with 96% lymphs. Stop vanc/amp/ceftriaxone/dex/dropley precautions as results and history not consistent with bacterial meningitis. Cont acyclovir while HSV pcr is pending. If he is discharged prior to the results being available, would send home on valtrex 1gm tid for 7 more days of therapy. Thank you, will follow, d/w primary team. 06/26/17 8525 <Electronically signed by Beto Valentino MD> Date Beto Valentino MD Cosigner Signature (if applicable): Date CC: Manuel Iqbal MD; Delano Epperson MD; Beto Valentino MD Signed ECHOCARDIOGRAM COMPLETE Observed: 06/26/2017 Status: F Source: [place] 4:23 PM [facility] REPOSITORY [facility] Cardiovascular Services [address] [place] [address] Echo Complete 06/26/17 1319 MR#: [id number] Acct: [id number] Name: LANNY OLIVIER Rep #: [id number] : 1940 76 From: Fabián Sales MD Attending Dr: Odalys Beltran Status: ADM IN Ordering Dr: Diamante Shane Date: 06/25/17 Location: [facility] Sex: M C Admitted: 06/25/17 Reason For Study: DYSPNEA Procedure This was a 2D Doppler, Color Flow transthoracic echocardiogram. Exam performed portable in patient room. Left Ventricle Normal LV size. Left ventricular systolic function is normal. The estimated ejection fraction is 60 %. No regional wall motion abnormalities noted. Right Ventricle Normal RV size. Normal systolic function. Atria Normal left atrium. Normal right atrium. Mitral Valve Normal mitral valve. Tricuspid Valve Normal tricuspid valve. Mild tricuspid valve insufficiency. Aortic Valve Normal aortic valve. Trisinus/trileaflet aortic valve. Pulmonic Valve Normal pulmonic valve. Great Vessels Normal aortic root. The pulmonary artery is normal size. Normal inferior vena cava. Pericardium/Pleural No pericardial effusion. MMode/2D Measurements AND Calculations LVIDd: 4.2 cm IVSd: 0.94 cm LVOT diam: 2.0 cm RVDd: 3.9 cm LVPWd: 1.1 cm LVOT area: 3.2 cm2 Ao root diam: 3.4 cm LAV(MOD-bp): 47.4 ml LA A4 area: 18.5 cm2 LA dimension: 4.2 cm LAV(MOD-bp) Indexed: 22.9 ml/m2 LAV(MOD-sp2): 43.7 ml LAV(MOD-sp4): 52.3 ml RA A4 area: 13.7 cm2 Doppler Measurements AND Calculations MV E max linda: 71.8 cm/sec Ao V2 max: 155.2 cm/sec LV V1 max: 111.3 cm/sec MV A max linda: 89.9 cm/sec Ao max P.6 mmHg LV V1 max P.0 mmHg MV E/A: 0.80 AVE(V,D): 2.3 cm2 TR max linda: 206.3 cm/sec TR max P.0 mmHg Interpretation Summary Normal LV size. Left ventricular systolic function is normal. The estimated ejection fraction is 60 %. Mild tricuspid valve insufficiency. Ordering Physician: ELIZABETH Boudreaux Referring Physician: DELANO EPPERSON Performed By: Ivanna Zaragoza, TEETEE, RVT 06/26/17 1623 Date Fabián Sales MD CC: WREATH MACHINE TENDER-C Diamante Shane; Delano Epperson MD Date Dictated: 06/26/17 1319 Date Transcribed: 06/26/17 1623 Paddle Dyeing Machine Operator: Signed BEDSIDE GLUCOSE Collected: 06/26/2017 Status: F Source: EFFIE 4:17 PM [facility] REPOSITORY TYPE CODE TESTS RESULT OUT OF REFERENCE UNITS RANGE LAB L501.080 70-110 mg/dL High BEDSIDE GLU 231 Result Comment: MANAGEMENT OF PATIENT CARE PER NURSING PROTOCOL Performed By: #### L501.080 #### [facility] Point of Care [address] [place] [address] BEDSIDE GLUCOSE Collected: 06/26/2017 Status: F Source: EFFIE 11:56 AM [facility] REPOSITORY TYPE CODE TESTS RESULT OUT OF REFERENCE UNITS RANGE LAB L501.080 70-110 mg/dL High BEDSIDE GLU 194 Result Comment: MANAGEMENT OF PATIENT CARE PER NURSING PROTOCOL Performed By: #### L501.080 #### [facility] Point of Care [address] [place] [address] SPINAL FLUID CELL Collected: 06/26/2017 Status: C Source: EFFIE COUNT+DIFF 11:39 AM [facility] REPOSITORY Order Comment: Specimen Source? CSF TYPE CODE TESTS RESULT OUT OF RANGE REFERENCE UNITS LAB L200.2695 0.000-0.000 10 3/uL High TC CSF 0.163 Result Comment: This is the Total Number of Nucleated Cell Types in the Body Fluid. LAB L200.2750 0.000-0.000 10 3/uL High WBC,CSF 0.162 LAB L200.3000 Normal PATH REV Reviewed Result Comment: Negative for malignant cells. Increased number of inflammatory cells noted, predominantly lymphocytes. Clinical correlation necessary. Chris Ann M.D. 06/29/17 AMENDED REPORT 06/29/17 3243 PATH REV previously reported as: May follow LAB L200.3510 % BF Normal PMN WBC% 4.3 LAB L200.3515 % BF MN Normal WBC% 95.7 LAB L200.3520 10 3/uL BF MN Normal WBC# 0.155 LAB L200.3525 10 3/uL BF Normal PMN WBC# 0.007 LAB L200.2790 0 - 6 % 4 Normal NEUTROPHIL,CSF LAB L200.2800 40 - 80 % 96 High LYMPH,CSF LAB L200.2500 4 Normal TESTED TUBE # LAB L200.2600 Colorless CSF Normal Color COLORLESS LAB L200.2650 Clear Normal APPEARANCE CSF CLEAR LAB L200.2700 None seen /mm-3 0 Normal RBC,CSF Performed By: #### L200.0100 #### [facility] [address] [facility] [place], [address] GLUCOSE SPINAL FLUID Collected: 06/26/2017 Status: F Source: EFFIE 11:39 [facility] REPOSITORY Order Comment: Specimen Source? CSF TYPE CODE TESTS RESULT OUT OF REFERENCE UNITS RANGE LAB L501.0400 40-75 mg/dL High GLU SPINAL 91 FLD Performed By: #### L501.0400, L501.1600 #### [facility] [address] [facility] [place], [address] PROTEIN SPINAL FLUID Collected: 06/26/2017 Status: F Source: [place] 11:39 [facility] REPOSITORY Order Comment: Specimen Source? CSF TYPE CODE TESTS RESULT OUT OF REFERENCE UNITS RANGE LAB L501.1600 15.0-45.0 mg/dL High PROTEIN CSF 102.0 Performed By: #### L501.0400, L501.1600 #### [facility] [address] [place], [address] Observed: 06/26/2017 Status: F Source: EFFIE CULTURE, CSF 11:39 AM [facility] REPOSITORY Gram Stain Centrifuged Specimen? Culture performed on centrifuged specimen Gram Stain 1+ White Blood Cells No organisms seen CSF Culture Culture exhibits no growth. Performed By: #### M100.0700 #### [facility] [address] [place], [address] CYTOLOGY, BODY FLUID / Collected: 06/26/2017 Status: F Source: [place] CSF 11:39 AM [facility] REPOSITORY TYPE CODE TESTS RESULT OUT OF RANGE REFERENCE UNITS LAB L350.1000 SEE Normal PATHOLOGY CYTOLOGY,BF REPORT /CSF Result Comment: Specimen submitted to Anatomical Pathology Department for testing. Performed By: #### L350.1000 #### [facility] [address] [place], [address] CRYPTOCOCCUS ANTIGEN CSF Collected: 06/26/2017 Status: F Source: [place] 11:39 AM [facility] REPOSITORY TYPE CODE TESTS RESULT OUT OF RANGE REFERENCE UNITS LAB L800.1960 Negative Normal CRYP Negative AG CSF Performed By: #### L800.1960, L3400.1525, L3400.1550, L3400.1645 #### [facility] (refer to report for specific site) refer to report for address and phone number CMV BY PCR Collected: 06/26/2017 Status: F Source: [place] 11:39 AM [facility] REPOSITORY TYPE CODE TESTS RESULT OUT OF RANGE REFERENCE UNITS LAB L3400.1525 Negative Normal CMV PCR Negative [id number] Result Comment: No Cytomegalovirus DNA Detected. This test was developed and its performance characteristics determined by [employer]. It has not been cleared or approved by the Food and Drug Administration. The FDA has determined that such clearance or approval is not necessary. Performed at: [address] [id number] Fur Buyer: Tenzin Mueller MD, Phone: [phone] Performed By: #### L800.1960, L3400.1525, L3400.1550, L3400.1645 #### [facility] (refer to report for specific site) refer to report for address and phone number ENTEROVIRUS BY PCR Collected: 06/26/2017 Status: F Source: EFFIE 11:39 AM [facility] REPOSITORY TYPE CODE TESTS RESULT OUT OF REFERENCE UNITS RANGE LAB L3400.1550 Negative ENTEROVIRUS Normal PCR Negative Result Comment: No Enteroviral RNA Detected. This test was developed and its performance characteristics determined by [employer]. It has not been cleared or approved by the Food and Drug Administration. The FDA has determined that such clearance or approval is not necessary. Performed By: #### L800.1960, L3400.1525, L3400.1550, L3400.1645 #### [facility] (refer to report for specific site) refer to report for address and phone number HSV 1/2 BY PCR Collected: 06/26/2017 Status: F Source: EFFIE 11:39 AM [facility] REPOSITORY TYPE CODE TESTS RESULT OUT OF RANGE REFERENCE UNITS LAB L3400.1650 Negative Normal HSV 1 Negative BY PCR LAB L3400.1655 Negative Normal HSV 2 Negative BY PCR Result Comment: This test was developed and its performance characteristics determined by [employer]. It has not been cleared or approved by the U.S. Food and Drug Administration. The FDA has determined that such clearance or approval is not necessary. This test is used for clinical purposes. It should not be regarded as investigational or research. Performed By: #### L800.1960, L3400.1525, L3400.1550, L3400.1645 #### [facility] (refer to report for specific site) refer to report for address and phone number Observed: 06/26/2017 Status: F Source: EFFIE CHINCHILLA, FUNGUS [id number] 11:39 AM [facility] REPOSITORY Cu,[id number] TESTING PERFORMED AT [facility]. ORIGINAL REPORT ON FILE IN LAB CONTAINS ADDITIONAL TEST SITE INFORMATION. CUF No yeast or mold isolated after 4 weeks. Performed By: #### M600.2000 #### [facility] [address] [place], [place], [address] BEDSIDE GLUCOSE Collected: 06/26/2017 Status: F Source: [place] 6:50 AM [facility] REPOSITORY TYPE CODE TESTS RESULT OUT OF REFERENCE UNITS RANGE LAB L501.080 70-110 mg/dL High BEDSIDE GLU 164 Result Comment: MANAGEMENT OF PATIENT CARE PER NURSING PROTOCOL Performed By: #### L501.080 #### [facility] Point of Care [address] [place] [address] CBC W/DIFF, AUTOMATED Collected: 06/26/2017 Status: F Source: [place] 5:20 AM [facility] REPOSITORY TYPE CODE TESTS RESULT OUT OF RANGE REFERENCE UNITS LAB L100.1000 4.4-11.0 K/mm3 Normal WBC 7.1 LAB L100.1200 4.6-6.2 M/mm3 Normal RBC 5.41 LAB L100.1300 13.0-16.5 g/dl Normal HGB 14.9 LAB L100.1400 40-54 % Normal HCT 43.0 LAB L100.1500 80-94 fL Low MCV 79.5 LAB L100.1600 27.0-32.0 pg Normal MCH 27.5 LAB L100.1700 32-36 g/gl Normal MCHC 34.7 LAB L100.1810 11.6-14.6 % Normal RDW CV 14.2 LAB L100.1820 35.1-43.9 fl Normal RDW SD 40.8 LAB L100.1900 150-450 K/mm3 Normal PLT 302 LAB L100.2000 6.2-12.0 fl Normal MPV 11.3 LAB L100.2100 47-70 % High NEUT% 87.1 LAB L100.2200 19-41 % Low LY% 9.6 LAB L100.2300 0-10 % Normal MONO% 3.1 LAB L100.2400 0-5 % Normal EO% 0.0 LAB L100.2500 0-1 % Normal BASO% 0.1 LAB L100.2550 0.0-0.9 % Normal IM GRAN % 0.100 Result Comment: IG% - Immature Granulocytes (promyelocytes, myelocytes and metamyelocytes) > 1% indicates that a LEFT SHIFT is Present. LAB L100.2620 2.0-7.7 X10 3/uL Normal Absolute Neut 6.1 LAB L100.2720 0.83-4.51 X10 3/ul Low Absolute Lymph 0.68 Performed By: #### L100.0100 #### [facility] [address] [facility] [place], [place], [address] BASIC METABOLIC Collected: 06/26/2017 Status: F Source: [place] PROFILE ([facility]) 5:20 AM [facility] REPOSITORY TYPE CODE TESTS RESULT OUT OF RANGE REFERENCE UNITS LAB L501.0100 70-110 mg/dL High GLU 168 Result Comment: Fasting Glucose result greater than or equal to 126 mg/dL suggests DIABETES MELLITUS per A.D.A. criteria. LAB L501.1000 7-18 mg/dL Normal BUN 14 LAB L501.1100 0.70-1.30 mg/dL Normal CREAT,SERUM 0.95 Result Comment: The validity of the calculated GFR AND GFRAA in patients over 70 years has not been determined. Clinical correlation is essential. LAB L501.1110 >60 mL/min Normal EST GFR 82 Result Comment: Non- GFR Calc LAB L501.1115 >60 mL/min Normal EST GFR - AA 99 Result Comment: GFR Calc LAB L501.1255 ml/min Normal Estimated CRCL 69.37 LAB L501.1300 10-20 RATIO Normal BUN/CRE 14.8 LAB L501.2200 8.5-10 mg/dL Normal .1 CA 8.7 LAB L501.5300 136-14 mmol/L Low 5 NA 135 LAB L501.5600 3.5-5. mmol/L Normal 1 K 3.7 LAB L501.5900 98-107 mmol/L Normal CL 102 LAB L501.6100 21.0-3 mmol/L Normal 2.0 CO2 23.0 LAB L501.6200 5-15 Normal GAP 10 Performed By: #### L500.2500 #### [facility] [address] [place], [address] FLUORO GUIDED LUMBAR Observed: 06/26/2017 Status: F Source: EFFIE PUNCTURE 12:00 AM [facility] REPOSITORY [facility] Imaging Services [address] [place] [address] Fluoro Guided Lumbar Puncture MR#: [id number] Acct: [id number] Name: LANNY OLIVIER Rep #: [id number] : 1940 M 76 From: You Erwin MD PCP: Delano Epperson MD Status: ADM IN Study: Fluoro Guided Lumbar Puncture Date of Exam: 06/26/17 Exam# [id number] Ordering Dr: Tone Beltran DO PROCEDURE: Fluoroscopic guided Lumbar Puncture. DATE: June 26, 2017. CLINICAL INDICATION: Possible meningitis PHYSICIAN: You Erwin M.D. MEDICATIONS: 1% lidocaine administered subcutaneously for local anesthesia. ACCESS SITE: Lower posterior back. NEEDLE: 22-gauge spinal needle. SPECIMEN: Approximately 12 mL clear]CSF fluid. FLUOROSCOPY TIME (if supplied): (1:19) minutes/seconds COMPLICATIONS: None immediate. The risks, benefits, and alternatives to the procedure were explained to the patient. The specific risks of bleeding, infection, and neurovascular injury were detailed and accepted. Witnessed informed consent was obtained. The patient was placed on the fluoroscopic table in the prone position. The level for needle entry was determined and marked. The overlying skin was cleaned and prepped in the usual sterile fashion. 2% lidocaine was administered subcutaneously for local anesthesia. Under fluoroscopic guidance a 22-gauge spinal needle was advanced. The thecal sac was entered at the L3- L4 vertebral level. The inner stylet was removed. There was spontaneous flow of clear CSF fluid. The patient was placed in a reversed Trendelenburg position. Approximately 12 mL of cerebrospinal fluid was collected using gravity. The specimen was collected and submitted to the laboratory for further evaluation. The needle was withdrawn,. Hemostasis was achieved and a sterile dressing placed. The patient tolerated the procedure well without any immediate complications. The patient was placed supine with head elevated and returned to the floor in stable condition. RAD/Fluoro Guided Lumbar Puncture IMPRESSION: Successful fluoroscopic-guided lumbar puncture. Electronically Signed: You Erwin MD at 13:03 EST Tel [phone], Service support , CC: Odalys Beltran; Delano Epperson MD Paddle Dyeing Machine Operator: Signed FLUID/WASHING Observed: 06/26/2017 Status: F Source: EFFIE 12:00 AM [facility] REPOSITORY Patient: LANNY OLIVIER : 1940 (76/M) Acct Num: [id number] Phys: Curtis FINNEGAN,Banner Unit Num: [id number] Loc: MS3 CC036-5 Specimen: [id number] Received: 06/26/17 - 1139 Spec Type: Fluid TISSUES TISSUES: Cerebrospinal Fluid COMMENT Clinical correlation and appropriate follow up are necessary. CYTOLOGY GROSS Received is 2 ml of clear, colorless fluid labeled with the patient's name and and designated per the requisition as CSF. Submitted for cytology preparation. / 06/26/17 TC:2 CPT: 32552 CYTOLOGY STUDY Slides are reviewed. The specimen shows increased number of inflammatory cells consisting predominantly of lymphocytes and a few monocytes. DIAGNOSIS CYTOLOGY Cerebrospinal fluid for cytology (cytospin): Increased number of inflammatory cells noted. See cytology study and comment. SJ:aya 06/29/17 HEADER OPERATION: Not noted PRE-OP DIAGNOSIS: Flu-like symptoms TISSUE SUBMITTED: Cerebrospinal fluid for cytology Signed Chris Ann 06/29/17 <signature on file> Performed By: #### PFLU #### [facility] [address] [place], [place], [id number] BEDSIDE GLUCOSE Collected: 06/25/2017 Status: F Source: EFFIE 10:49 PM [facility] REPOSITORY TYPE CODE TESTS RESULT OUT OF REFERENCE UNITS RANGE LAB L501.080 70-110 mg/dL High BEDSIDE GLU 201 Result Comment: MANAGEMENT OF PATIENT CARE PER NURSING PROTOCOL Performed By: #### L501.080 #### [facility] Point of Care [address] [place] [address] LACTIC ACID Collected: 06/25/2017 Status: F Source: [place] 8:49 PM [facility] REPOSITORY Order Comment: Yes/No query for Sepsis Lactate Rule Y TYPE CODE TESTS RESULT OUT OF RANGE REFERENCE UNITS LAB L503.6005 0.4-2.0 mmol/L Normal LACTIC ACID 0.9 Performed By: #### L503.6005 #### [facility] [address] [place], [address] Observed: 06/25/2017 Status: F Source: [place] CULTURE, BLOOD (WB) 8:49 PM [facility] REPOSITORY Has pt arrived? Y BC No growth in 5 days. Performed By: #### M200.1000 #### [facility] [address] [place], [address] HISTORY AND PHYSICAL Observed: 06/25/2017 Status: F Source: [place] EXAM 8:00 PM [facility] REPOSITORY [facility] Medical Records Department [address] [place] [address] History and Physical 06/25/17 1540 MR#: [id number] Acct: [id number] Name: LANNY OLIVIER Rep #: [id number] : 1940 76 From: Diamante JOHNSON PCP: Delano Epperson MD Status: ADM IN Y Location: [place] [id number] ADDENDUM by Odalys Beltran on 06/25/17 at 2000 Code Visit Asked by nursing to see pt with recent onset confusion. No hx of confusion. He has been sick for almost 1 week. Prior to becoming sick last Thursday he had a dental procedure were his gums were incised and he developed an infection that was treated with Amoxicillin. Last day he started complaining of pain in his legs. He has no weakness. Numbness in his legs. He was sleeping a lot and that is not him he is usually very active. Approximately 3 days ago he began to get confused. His states he has not been coughing. He has been complaining of a severe headache for about a week. He denies dysuria and the UA is unremarkable. He has no rashes. There is no skin breakdown. He denies any ear pain. He has been tremulous recently also and this is new for him. He is oriented X1. He He has not been able to care for himself and has been very weak per the family. He is alert at present. His face is flushed and warm to touch. PERRL, EOMI tongue is very dry and protrudes on the midline, there is no facial asymmetry The EAC are partially occluded bilaterally with wax and the TM could not adequately be visualized but he had no pain with traction on the earlobe. He had no pain with percussion over the sinuses He has nuchal rigidity The lungs are diminished but clear to auscultation. He has no tachypnea no conversational dyspnea. He is able to follow simple commands. Heart-distant heart sounds likely secondary to body habitus- regular rate and rhythm, no gallop. there is a soft systolic MM at the LLSB abdomen- the abdomen is pink with no rash.....non-tender, hyperactive BS's, no guarding with palpation and it is soft No edema He has 5/5 strength in all extremities. He does have some tremoring of his hands and he startles very easily.....family states this is normal 2-3 beat clonus in the ankles Could not adequately test for babinski because he pulls foot away immediately No Janeway lesions/splinter hemorrhages and no oslers nodes Suspect meningitis. The WBC is normal with only a mild left shift but, he has been on Amoxicillin and it may be partially treated Will start Vanco, Ampicillin 2 GM Q 4 H and Rocephin 2 GM Q 12, dexamethasone Consult Dr. Iqbal LP in the AM under fluoro ECHO but doubt endocarditis Repeat lab in the AM discussed with the family and answered all their questions MRI of the brain tonight 06/25/171999 <Electronically signed by Tone Beltran DO> Date Tone Beltran DO cc: ELIZABETH Shane; Odalys Beltran; Delano Epperson MD * Signed <Diamante Shane - Last Filed: 06/25/17 17:10> Problem List (1) Type 2 diabetes mellitus Status: Chronic (2) Hypertension Status: Chronic (3) Tobacco abuse Status: Chronic History of Present Illness Date of Admission: 06/25/17 Chief Complaint: Generalized weakness, malaise, altered mental status. The patient is a 76 year old M who presents to the emergency room with a one-week history of worsening weakness, general malaise, fever/chills, cough, altered mental status. Family at bedside states patient is normally in good health and has had no prior issues with confusion or weakness. He presented to [facility] on 06/22/2017 for similar symptoms and was diagnosed with viral syndrome and discharged from the ER. Grandson at bedside states that respiratory panel/flu swab was not completed as the physician reportedly said there is no need for an expensive test. Family states that patient had a dental procedure within the past 2 weeks and is finishing a course of amoxicillin due to a noted infection in the gum during procedure. Patient denies history of rheumatic fever. He has a past medical history of hypertension, type 2 diabetes mellitus and current pack per day smoker. He denies other chronic medical history. Denies alcohol use. Family at bedside is very concerned and states that patient has become so weak that he is having difficulty providing basic care for himself. Patient denies chest pain. Complains of associated shortness of breath. Complains of jaw pain related to recent dental procedure. Patient was told by a dentist that he may experience jaw pain for an extended period of time. She denies drainage from the mouth, foul taste. Denies nausea, vomiting. Denies other associated complaints. Past Medical History Past Medical History (Chronic Problems): Chronic Problems Type 2 diabetes mellitus (Chronic) Hypertension (Chronic) Tobacco abuse (Chronic) Allergies No Known Allergies Allergy (Verified 06/25/17 12:30) Home Medications: Ambulatory Orders Medication Instructions Recorded Amlodipine [Norvasc] 2.5 mg PO DAILY 06/25/17 Surgical History: appendectomy Psychiatric History: No pertinent psych hx Lives: Spouse/ Significant Other Smoking Status: Current every day smoker - 1 pack per day Alcohol: None Drugs: None - *Family History Maternal History Items: Cancer Paternal History Items: Diabetes, Stroke Review of Systems Constitutional: Reports: Chills, Fever, Malaise, Weakness, Fatigue HEENT: Reports: Nasal Congestion. Denies: Head Aches, Sinus Congestion, Sinus Drainage Cardiovascular: Denies: Chest Pain, Palpitations, Syncope Respiratory: Reports: Cough, Shortness of Breath. Denies: Sputum production Gastrointestinal: Denies: Abdominal Pain, Diarrhea, Nausea, Vomiting Genitourinary: Denies: Dysuria, Frequency, Urgency Musculoskeletal: Denies: Joint Pain, Joint Tenderness Skin: Denies: Rash, Wounds Neurological: Denies: Numbness, Tingling, Focal weakness Psychiatric: Denies: Anxiety, Depression, Homicidal Ideations, Suicidal Ideations Hematologic/ Lymphatic: Denies: Easy Bruising, Easy Bleeding VTE Information - Inpt Only VTE Present on Admission: No VTE Mechan Device Prophylaxis: None VTE Pharm Prophylaxis ordered?: Yes - Physical Exam General: Alert, Cooperative, No apparent distress, Confused HEENT: Atraumatic, PERRLA, EOMI, Normocephalic Oral: No Gingival or Mucosal Lesions/ Ulcerations, Dry Mucosa Neck: Supple, No JVD, Negative Carotid Bruits Lungs: Clear to auscultation, Diminished Cardiovascular: Regular rate, Regular Rhythm, Normal S1, Normal S2, No murmurs Abdomen: Bowel Sounds Present, Soft, Non Tender, Non-Distended Extremities: No clubbing, No cyanosis, No edema, Capillary Refill Less than 3 Seconds Skin: No rashes, No breakdown Musculoskeletal: No Tenderness to Palpation of Joints or Extremities Neurological: Cranial nerves II-XII grossly intact, Neuro grossly intact Psych/Mental Status: Normal Affect, Appropriate Vital Signs Temp Pulse Resp BP Pulse Ox 98.9 F 79 16 144/56 H 94 06/25/17 14:29 06/25/17 14:29 06/25/17 14:29 06/25/17 14:29 06/25/17 14:29 Oxygen Delivery Method Room Air Weight: 89.3 kg Body Mass Index (BMI) 28.2 Assessment/Plan 1. Suspected viral syndrome-patient complains of general malaise with fever, chills, cough and weakness. Respiratory panel pending. Continue supportive treatment. IV fluids. Tylenol for fever. Cough suppressant as needed. 2. Generalized weakness/altered mental status-Brain CT shows chronic changes, sinusitis. Chest x-ray shows no acute abnormality. No leukocytosis. Respiratory panel pending. Patient had recent dental work done and family states symptoms began shortly after. Obtain echocardiogram to rule out endocarditis. PT/OT. Patient denies history of prosthetic valve or rheumatic fever. No previous cardiac history with the exception of hypertension. Urinalysis unremarkable. Fall precautions. 3. Type 2 diabetes hxqsrckf-Fdeo-Fgdua before meals at bedtime. Continue long-acting insulin regimen. Sliding scale insulin. Hold metformin. 4. Hypertension-stable, continue home regimen. 5. Tobacco abuse-encourage smoking cessation. Nicotine replacement if desired. DVT prophylaxis-Lovenox subcu. This patient was seen by CAROLA BoudreauxC under the supervision of Dr. Paredes. <Dale Paredes - Last Filed: 06/25/17 18:19> History of Present Illness seen and examined. Patient is admitted with generalized weakness, fever with chills, cough and altered mental status. He also complained of sense of micturition, increased frequency but not able to empty the bladder completely. UA shows mild LE positive otherwise no pyuria. Mild low-grade fever, T 99.2 Fahrenheit. Had recent crown of right upper premolar teeth on the amoxicillin. [] Past Medical History Allergies No Known Allergies Allergy (Verified 06/25/17 12:30) - Physical Exam General: Confused Lungs: Clear to auscultation, No rhonchi, No wheeze, Diminished Cardiovascular: Regular rate, Regular Rhythm, Normal S1, Normal S2, No murmurs Abdomen: Non Tender, Non-Distended Extremities: No edema Musculoskeletal: Arthritic Changes, Muscle Wasting Vital Signs Temp Pulse Resp BP Pulse Ox 99.2 F H 79 18 147/63 H 96 06/25/17 15:54 06/25/17 15:54 06/25/17 15:54 06/25/17 15:54 06/25/17 15:54 Oxygen Delivery Method Room Air Weight: 196 lb 13.965 oz Body Mass Index (BMI) 28.2 Intake and Output for Last 24 Hours Intake Total 360 / 360 Output Total 200 / 200 Balance 160 / 160 Microbiology Past 72 Hours 06/25/17 14:36 Respiratory Panel (PCR) - Final Mucosa - Nasopharyngeal Assessment/Plan This patient was seen in conjunction with Diamante ALCANTARA. I have independently interviewed and examined the patient and reviewed pertinent history, examination findings, laboratory and plan of management. I have reviewed the note and agree with the documented findings with the few additional points. In brief, patient is admitted for generalized weakness and vital leg syndrome. Urine culture is ordered. Ammonia ordered. 2D echo ordered. Respiratory panel is negative. Blood cultures 2 and lactic acid ordered. I have discussed my assessment with Diamante ALCANTARA and orders have been reviewed. Code Visit Inpatient E AND M: 92636 Init Hosp L3 06/25/17 1710 <Electronically signed by Diamante Shane WREATH MACHINE TENDER-C> Date Diamante Shane WREATH MACHINE TENDER-C 06/25/17 1819<Electronically signed by Dale Paredes MD> Cosigner Signature: Date (if applicable) Dale Paredes MD CC: WREATH MACHINE TENDER-C Diamante Shane; Odalys Beltran; Delnao Epperson MD Signed ERYTHROCYTE SED RATE Collected: 06/25/2017 Status: F Source: [place] 7:10 PM [facility] REPOSITORY TYPE CODE TESTS RESULT OUT OF RANGE REFERENCE UNITS LAB L102.0000 0-20 mm/hr Normal SED RATE 15 Performed By: #### L101.9900 #### [facility] [address] [place], [place], [address] AMMONIA Collected: 06/25/2017 Status: F Source: [place] 7:10 PM [facility] REPOSITORY TYPE CODE TESTS RESULT OUT OF RANGE REFERENCE UNITS LAB L503.5510 11-32 umol/L Normal AMMONIA 29.0 Performed By: #### L503.5510 #### [facility] [address] [place], [address] RAPID PLASMIN REAGIN Collected: 06/25/2017 Status: F Source: [place] (RPR) 7:10 PM [facility] REPOSITORY TYPE CODE TESTS RESULT OUT OF REFERENCE UNITS RANGE LAB L700.5000 NONREACTIVE NONREACTIVE Normal RPR Performed By: #### L700.5000 #### [facility] [address] [place], [address] VITAMIN B12 Collected: 06/25/2017 Status: F Source: [place] 7:10 PM [facility] REPOSITORY TYPE CODE TESTS RESULT OUT OF RANGE REFERENCE UNITS LAB L503.0105 211-911 pg/mL Normal Vitamin B12 415 Performed By: #### L503.0105 #### [facility] [address] [place], [address] Observed: 06/25/2017 Status: F Source: [place] CULTURE, BLOOD (WB) 7:10 PM [facility] REPOSITORY Has pt arrived? Y BC No growth in 5 days. Performed By: #### M200.1000 #### [facility] [address] [place], [address] LUMBAR SPINE 2 OR 3 Observed: 06/25/2017 Status: F Source: [place] VIEWS 6:55 PM [facility] REPOSITORY [facility] Imaging Services [address] [place] [address] Lumbar Spine 2 or 3 Views MR#: [id number] Acct: [id number] Name: LANNY OLIVIER Wanda Rep #: [id number] : 1940 M 76 From: Praveen Cruz PCP: Delano Epperson MD Status: ADM IN Study: Lumbar Spine 2 or 3 Views Date of Exam: 06/25/17 Exam# [id number] Ordering Dr: Tone Beltran DO STUDY: X-RAY - LUMBAR SPINE REASON FOR EXAM: Male, 76 years old. Low back pain TECHNIQUE: 2 view(s) of the lumbar spine were obtained. COMPARISON: None FINDINGS: Normal lumbar lordosis. There is no substantial scoliosis. There is a normal alignment of the vertebrae. There is multilevel endplate spondylosis of the lumbar vertebrae. There is multi-level degenerative disc disease with multi-level disc space narrowing. The soft tissue structures are unremarkable. RAD/Lumbar Spine 2 or 3 Views IMPRESSION: Degenerative changes of the spine, as detailed above. No fracture. Electronically Signed: Praveen DO Anthony at 21:09 EST , Service support , CC: Odalys Beltran; Delano Epperson MD Paddle Dyeing Machine Operator: Signed BRAIN WITHOUT Observed: 06/25/2017 Status: F Source: [place] CONTRAST 6:55 PM [facility] REPOSITORY [facility] Imaging Services [address] [place] [address] Brain without Contrast MR#: [id number] Acct: [id number] Name: LANNY OLIVIER Rep #: [id number] : 1940 M 76 From: Joe Mcnair DO PCP: Delano Epperson MD Status: ADM IN Study: Brain without Contrast Date of Exam: 06/25/17 Exam# [id number] Ordering Dr: Tone Beltran DO STUDY: MRI BRAIN WITHOUT CONTRAST REASON FOR EXAM: Male, 76 years old. Sudden onset of confusion. TECHNIQUE: Standardized multiplanar fat and water weighted pulse sequences were obtained. COMPARISON: None. FINDINGS: There is mild cerebral atrophy with widening of the extra- axial spaces and ventricular dilatation. There are a limited number of small white matter hyperintensities, distributed throughout the deep white matter tracts of the cerebral hemispheres, consistent with mild chronic white matter ischemic changes. There is no evidence for recent intracranial ischemia or other cause of cytotoxic edema on diffusion weighted imaging (DWI). Normal bilateral basal ganglia. Normal thalami. There is no extra-axial fluid accumulation. Normal flow voids within the major intracranial circulation suggesting patency by spin echo criteria. Normal sella turcica, pituitary gland, infundibular stalk, optic chiasm and hypothalamus. Normal tectal plate and pineal gland. Normal midbrain, primitivo and medulla. Normal cerebellum. Normal basal cisterns. Normal bilateral temporal bones. Normal bilateral internal auditory canals. No demonstrated orbital abnormality, within the constraints of a routine brain study. Fluid layering in mucosal thickening of the maxillary, sphenoid and ethmoid sinuses are present. Mild mucosal thickening in the sphenoid sinuses is also noted. Within the left nasopharynx is a likely mucoid retention cyst within the torus tubarius. Normal visualized soft tissue structures. Normal visualized upper cervical spine. MRI/Brain without Contrast IMPRESSION: 1. Senescent changes with no evidence of acute intracranial bleed, mass or ischemia. 2. 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 Electronically Signed: Joe Mcnair DO at 21:17 EST , Service support , CC: Odalys Beltran; Delano Epperson MD Paddle Dyeing Machine Operator: Signed Observed: 06/25/2017 Status: F Source: [place] CULTURE, URINE 6:20 PM [facility] REPOSITORY Comments: From previous U/A sample of today if possible Urine Culture Culture exhibits no growth. Performed By: #### M100.0650 #### [facility] [address] [place], [address] EMERGENCY DEPARTMENT Observed: 06/25/2017 Status: F Source: [place] SUMMARY 5:30 PM [facility] REPOSITORY [facility] Medical Records Department [address] [place] [address] Emergency Department Summary 06/25/17 1258 MR#: [id number] Acct: [id number] Name: LANNY OLIVIER Rep #: [id number] : 1940 76 From: Shavon Parker MD PCP: Delano Epperson MD Status: ADM IN - ER Visit Summary Date of Service: 06/25/17 Chief Complaint: [] Generalized weakness unable to walk confusion History of Present Illness: The patient is a 76 M [] diabetes and hypertension who is generally in good health about a week ago he developed what sounds like the flu cough fever etc. he was seen in the emergency department a few days ago the workup was unremarkable, the family reports for the last few days she has has generalized weakness he cannot dress himself he can barely walk cannot get to the bathroom and back without significant assistance, the also feels if he is more confused and is not processing information with a sharp mind. The patient at this time is oriented times himself [facility] now when he has no specific complaints other than generalized weakness he also reports he apparently is been having anterior bilateral thigh pain but no trauma he has no history of musculoskeletal disorder or dermatologic disorders Physical Examination: [] Vital signs are within normal range he does appear very fatigued his sons are helping him get undressed he has a slight tremor to the left arm that is old he is awake and alert oriented as above his HEENT exam shows dry mucous membranes neck is very supple heart tones sound regular the lungs sound clear the abdomen soft nontender upper lower extremities unremarkable his thighs his lower extremities are unremarkable he has full range of motion of all 4 extremities but does complain of generalized weakness his NIH would be 0 Test Results: [] Emergency Department Course and Treatment: [] Comprehensive evaluation Treatment Plan: [] Disposition: [] Impression: [] This note was generated with [employer] dictation software. It may contain incorrect words, spelling, and punctuation that were not noted in review of the chart prior to signing ED Disposition - Plan for ED Patient: Chief Complaint: Weakness Referrals: Delano Epperson MD [Primary Care Provider] - What to do if you have Problems For any increased pain, shortness of breath, bleeding, nausea or vomiting, chest pain, or any unexpected problems, contact your Primary Care Provider. Call [facility] ([phone]) or report to the closest Emergency Room. Call 911 if necessary. 06/25/17 1730 <Electronically signed by Shavon Parker MD> Date Shavon Parker MD Cosigner Signature (If Indicated): Date CC: Delano Epperson MD Observed: 06/25/2017 Status: F Source: [place] RESPIRATORY PANEL 2:36 PM [facility] MOLECULAR REPOSITORY Order Date: 06/25/17 Comments: Deep nasopharyngeal swab Has pt arrived? Y RP PANEL ADENOVIRUS Not Detected HUMAN METAPHNEUMO Not Detected INFLUENZA A Not Detected INFLUENZA A (SUBTYPE H1) Not Detected INFLUENZA A (SUBTYPE H3) Not Detected INFLUENZA B Not Detected PARAINFLUENZA 1 Not Detected PARAINFLUENZA 2 Not Detected PARAINFLUENZA 3 Not Detected PARAINFLUENZA 4 Not Detected RHINOVIRUS Not Detected RSV A Not Detected RSV B Not Detected NAAT METHOD Testing was performed using nucleic acid amplification Performed By: #### M100.638 #### [facility] [address] [place], [address] URINALYSIS, COMPLETE Collected: 06/25/2017 Status: F Source: [place] 2:10 PM [facility] REPOSITORY Order Comment: Order Date: 06/25/17 How was Urine Obtained? CLEAN CATCH TYPE CODE TESTS RESULT OUT OF RANGE REFERENCE UNITS LAB L400.3000 Yellow COLOR Normal Yellow LAB L400.3050 Clear Normal CLARITY Clear LAB L400.3200 Normal mg/dl Normal GLUCOSE, UR Normal LAB L400.3300 Negative mg/dL Normal BILIRUBIN URINE Negative LAB L400.3400 Negative mg/dl Normal KETONE UR Negative LAB L400.3465 1.002-1.030 Normal SP.GR. DIPSTX 1.015 LAB L400.3550 5.0 - 8.0 pH UR Normal 6.0 LAB L400.3600 Negative mg/dl PROT Normal DIPSTX Negative LAB L400.3700 Normal mg/dl Normal UROBILI Normal LAB L400.3750 Negative Normal NITRITE UR Negative LAB L400.3780 Negative /ul Normal OCCULT BLOOD-UR Negative LAB L400.3800 Negative /ul High LEUK 25 ESTERASE LAB L400.4050 0-5 /hpf WBC Normal 0-5 SEEN LAB L400.4100 0-5 /hpf 0 Normal RBC-UA SEEN LAB L400.4150 0-5 /hpf SQUAM 0 Normal EPI SEEN LAB L400.4300 None Seen /hpf 0 Normal BACTERIA SEEN LAB L400.4350 <or=2+ /hpf 0 Normal MUCUS, URINE SEEN Performed By: #### L400.0001 #### [facility] [address] [place], [place], [id number] CBC W/DIFF, AUTOMATED Collected: 06/25/2017 Status: F Source: [place] 12:58 PM [facility] REPOSITORY TYPE CODE TESTS RESULT OUT OF RANGE REFERENCE UNITS LAB L100.1000 4.4-11.0 K/mm3 Normal WBC 10.7 LAB L100.1200 4.6-6.2 M/mm3 Normal RBC 5.45 LAB L100.1300 13.0-16.5 g/dl Normal HGB 14.8 LAB L100.1400 40-54 % Normal HCT 44.1 LAB L100.1500 80-94 fL Normal MCV 80.9 LAB L100.1600 27.0-32.0 pg Normal MCH 27.2 LAB L100.1700 32-36 g/gl Normal MCHC 33.6 LAB L100.1810 11.6-14.6 % Normal RDW CV 14.4 LAB L100.1820 35.1-43.9 fl Normal RDW SD 42.0 LAB L100.1900 150-450 K/mm3 Normal PLT 299 LAB L100.2000 6.2-12.0 fl Normal MPV 10.6 LAB L100.2100 47-70 % High NEUT% 75.9 LAB L100.2200 19-41 % Low LY% 11.6 LAB L100.2300 0-10 % High MONO% 10.4 LAB L100.2400 0-5 % Normal EO% 1.5 LAB L100.2500 0-1 % Normal BASO% 0.3 LAB L100.2550 0.0-0.9 % Normal IM GRAN % 0.300 Result Comment: IG% - Immature Granulocytes (promyelocytes, myelocytes and metamyelocytes) > 1% indicates that a LEFT SHIFT is Present. LAB L100.2620 2.0-7.7 X10 3/uL High Absolute Neut 8.2 LAB L100.2720 0.83-4.51 X10 3/ul Normal Absolute Lymph 1.24 Performed By: #### L100.0100 #### [facility] [address] [place], [place], [address] BASIC METABOLIC Collected: 06/25/2017 Status: F Source: [place] PROFILE (BMP) 12:58 PM [facility] REPOSITORY Order Comment: 'TROP' Serial specimen #1, #2, #3, or #4: 1 TYPE CODE TESTS RESULT OUT OF RANGE REFERENCE UNITS LAB L501.0100 70-110 mg/dL High GLU 125 Result Comment: Fasting Glucose result from 110 to <126 mg/dL suggests IMPAIRED HOMEOSTASIS per A.D.A. criteria. LAB L501.1000 7-18 mg/dL Normal BUN 18 LAB L501.1100 0.70-1.30 mg/dL Normal CREAT,SERUM 1.08 Result Comment: The validity of the calculated GFR AND GFRAA in patients over 70 years has not been determined. Clinical correlation is essential. LAB L501.1110 >60 mL/min Normal EST GFR 71 Result Comment: Non- GFR Calc LAB L501.1115 >60 mL/min Normal EST GFR - AA 86 Result Comment: GFR Calc LAB L501.1255 ml/min Normal Estimated CRCL 62.94 LAB L501.1300 10-20 RATIO Normal BUN/CRE 16.7 LAB L501.2200 8.5-10 mg/dL Normal .1 CA 8.9 LAB L501.5300 136-14 mmol/L Low 5 NA 133 LAB L501.5600 3.5-5. mmol/L Normal 1 K 3.8 LAB L501.5900 98-107 mmol/L Low CL 97 LAB L501.6100 21.0-3 mmol/L Normal 2.0 CO2 28.0 LAB L501.6200 5-15 Normal GAP 8 Performed By: #### L500.2500, L500.3400, L501.2450, L501.4010 #### [facility] [address] [place], [place], [address] LIVER PROFILE Collected: 06/25/2017 Status: F Source: [place] 12:58 PM [facility] REPOSITORY Order Comment: 'TROP' Serial specimen #1, #2, #3, or #4: 1 TYPE CODE TESTS RESULT OUT OF RANGE REFERENCE UNITS LAB L501.1500 6.4-8.2 g/dL Normal T PROT 7.5 LAB L501.1800 3.2-5.0 g/dL Normal ALB 3.6 LAB L501.1950 2.2-4.2 g/dL Normal GLOB 3.9 LAB L501.4100 15-37 U/L Low AST 13 LAB L501.4305 45-117 U/L Normal ALK P 82 LAB L501.4405 16-61 U/L Normal ALT 28 Result Comment: Please note revised ALT reference range effective 2017. LAB L501.4600 0.20-1.00 mg/dL Normal T BILI 0.80 LAB L501.4700 0.00-0.30 mg/dL Normal D BILI 0.19 Performed By: #### L500.2500, L500.3400, L501.2450, L501.4010 #### [facility] [address] [place], [place], [id number] LIPASE Collected: 06/25/2017 Status: F Source: [place] 12:58 PM [facility] REPOSITORY Order Comment: 'TROP' Serial specimen #1, #2, #3, or #4: 1 TYPE CODE TESTS RESULT OUT OF RANGE REFERENCE UNITS LAB L501.2450 73-393 U/L Normal LIPASE 100 Performed By: #### L500.2500, L500.3400, L501.2450, L501.4010 #### [facility] [address] [place], [place], [address] TROPONIN-I Collected: 06/25/2017 Status: F Source: [place] 12:58 PM [facility] REPOSITORY Order Comment: 'TROP' Serial specimen #1, #2, #3, or #4: 1 TYPE CODE TESTS RESULT OUT OF RANGE REFERENCE UNITS LAB L501.4010 <0.06 ng/mL Normal < 0.02 TROPONIN-I Result Comment: TROPONIN-I EXPECTED VALUES <0.05 NEGATIVE 0.06 - 0.59 AT RISK OF NE > OR = 0.60 SUGGEST NE Performed By: #### L500.2500, L500.3400, L501.2450, L501.4010 #### [facility] [address] [place], [place], [id number] CPK TOTAL, CREATINE Collected: 06/25/2017 Status: F Source: [place] KINASE 12:58 PM [facility] REPOSITORY TYPE CODE TESTS RESULT OUT OF RANGE REFERENCE UNITS LAB L501.3620 39-308 U/L Normal CPK TOTAL 131 Performed By: #### L501.3620 #### [facility] [address] [place], [id number] BNP,B-TYPE NATRIURETIC Collected: 06/25/2017 Status: F Source: [place] PEPTIDE 12:58 PM [facility] REPOSITORY TYPE CODE TESTS RESULT OUT OF RANGE REFERENCE UNITS LAB L503.6620 0-100 pg/mL Normal B-TYPE 31.0 NEERAJ PEP Performed By: #### L503.6620 #### [facility] [place], [address] CRP Collected: 06/25/2017 Status: F Source: [place] 12:58 PM [facility] REPOSITORY TYPE CODE TESTS RESULT OUT OF RANGE REFERENCE UNITS LAB L501.6710 0.0-3.0 mg/L Normal < 2.90 C-REACTIVE PROT Result Comment: C-Reactive Protein (CRP) provides useful information for the diagnosis, therapy and monitoring of inflammatory processes and associated diseases. For the evaluation of Relative Risk for Cardiovascular Disease, a High Sensitivity CRP (HSCRP) should be ordered. Performed By: #### L501.6710, L501.9520 #### [facility] [place], [address] THYROID STIM HORMONE Collected: 06/25/2017 Status: F Source: [place] (TSH) 12:58 PM [facility] REPOSITORY TYPE CODE TESTS RESULT OUT OF RANGE REFERENCE UNITS LAB L501.9520 0.358-3.74 uIU/mL Normal TSH 0.88 Performed By: #### L501.6710, L501.9520 #### [facility] [place], [address] BRAIN/HEAD WITHOUT Observed: 06/25/2017 Status: F Source: [place] CONTRAST 12:56 PM [facility] REPOSITORY [facility] Imaging Services [address] [place] [address] [place] [address] Brain/Head without Contrast MR#: [id number] Acct: [id number] Name: LANNY OLIVIER Rep #: [id number] : 1940 M 76 From: You Erwin MD PCP: Delano Epperson MD Status: PRE ER Study: Brain/Head without Contrast Date of Exam: 06/25/17 Exam# [id number] Ordering Dr: Shavon Parker MD STUDY: CT BRAIN WITHOUT CONTRAST REASON FOR EXAM: Male, 76 years old. Generalized weakness. Confusion. History of recent flu. RADIATION DOSAGE (If Supplied By Facility): CTDIvol = ( 44.99 ) mGy, DLP = ( 812.98 ) mGycm TECHNIQUE: Transaxial CT imaging of the brain was performed without administration of intravenous contrast material. Individualized dose optimization techniques were used for this CT. COMPARISON: None. FINDINGS: Normal soft tissue structures. Normal calvarium. There is mild cerebral atrophy with widening of the extra- axial spaces and ventricular dilatation. Normal white matter tracts of the cerebral hemispheres. Normal basal ganglia and thalami. Normal brainstem. Normal cerebellum. There is no intracranial hemorrhage. There are no findings of an acute ischemic infarction. Atherosclerotic calcification of the cavernous portions of the internal carotid arteries bilaterally. Partial opacification of the ethmoid sinuses bilaterally and mucosal thickening of the right maxillary sinus. CT/Brain/Head without Contrast IMPRESSION: Chronic involutional changes of the brain. Sinusitis. Electronically Signed: You Erwin MD at 13:31 EST Tel [phone], Service support , CC: MD Miguel Parker; Delano Epperson MD Paddle Dyeing Machine Operator: Signed CHEST 1 VIEW Observed: 06/25/2017 Status: F Source: [place] (PORTABLE) 12:45 PM [facility] REPOSITORY [facility] Imaging Services [address] [place] [address] Chest 1 View (Portable) MR#: [id number] Acct: [id number] Name: LANNY OLIVIER Rep #: [id number] : 1940 M 76 From: You Erwin MD PCP: Delano Epperson MD Status: REG ER Study: Chest 1 View (Portable) Date of Exam: 06/25/17 Exam# [id number] Ordering Dr: Shavon Parker MD STUDY: X-RAY CHEST REASON FOR EXAM: Male, 76 years old. Chest pain. Weakness. TECHNIQUE: Single AP portable view of the chest. COMPARISON: Comparison is made with prior examination dated June 22, 2017. FINDINGS: EKG electrodes are seen. Hyperinflation. Scattered calcified granulomas. No acute abnormality is seen. There is no demonstrated pleural abnormality. Normal size heart. Normal mediastinum and david. Normal visualized pulmonary arteries. There is atherosclerotic calcification of the aortic arch with tortuosity. There are diffuse degenerative changes of the visualized thoracic spine. Normal visualized ribs, clavicles, and shoulders. There is no demonstrated abnormality of the visualized soft tissue structures of the upper abdomen. RAD/Chest 1 View (Portable) IMPRESSION: Stable examination. No acute abnormality is seen. Electronically Signed: You Erwin MD at 13:44 EST Tel [phone], Service support , CC: MD Miguel Parker; Delano Epperson MD Paddle Dyeing Machine Operator: Signed EMERGENCY DEPARTMENT Observed: 06/22/2017 Status: F Source: [place] SUMMARY 12:55 PM [facility] REPOSITORY [facility] Medical Records Department [address] [place] [address] Emergency Department Summary 06/22/17 1251 MR#: [id number] Acct: [id number] Name: CHARLINELANNY Rep #: [id number] : 1940 76 From: Christiano Oliveros MD PCP: Delano Epperson MD Status: REG ER - ER Visit Summary Date of Service: 06/22/17 Chief Complaint: Myalgias, arthralgias subjective fever with sweats and nonproductive cough for the past 3-4 days. History of Present Illness: The patient is a 76 M who presents with viral-like symptoms that started 3-4 days ago. His major concern is myalgias and arthralgias and difficulty walking because of pain. He does complain of headache without photophobia or stiffness of his neck. He does report mild shortness of breath with activity. He denies any cardiac symptoms. He denies any GI or symptoms. He denies any skin lesions. He denies any joint swelling. He has smoked for approximately 60 years Physical Examination: Vital signs are normal. HEENT exam is remarkable for mild nasal congestion and boggy nasal mucosa; otherwise his HEENT exam is normal. Heart is regular without murmur, gallop or rub. Lungs reveal end of story rales which may represent COPD. Abdomen is soft nontender. Insert lower extremity DVT neuro exam is nonfocal. There are no skin lesions noted. Test Results: View chest x-ray reveals chronic pulmonary changes with normal cardiac silhouette, mediastinum and bony structures. Emergency Department Course and Treatment: Since he is elderly as smoked for greater than 60 years and there are abnormal respiratory sounds noted auscultation chest x-ray was obtained. Treatment Plan: Since his chest x-ray is normal and his symptoms are consistent with viral illness, influenza there is no treatment Disposition: Discharge to home Impression: Acute viral illness, influenza This note was generated with [employer] dictation software. It may contain incorrect words, spelling, and punctuation that were not noted in review of the chart prior to signing ED Disposition - Plan for ED Patient: Disposition: Home or Assisted Living Chief Complaint: General Illness Instructions: ED Viral Syndrome Referrals: Delano Epperson MD [Primary Care Provider] - 10-14 Days if not better What to do if you have Problems For any increased pain, shortness of breath, bleeding, nausea or vomiting, chest pain, or any unexpected problems, contact your Primary Care Provider. Call [facility] ([phone]) or report to the closest Emergency Room. Call 911 if necessary. 06/22/17 1255 <Electronically signed by Christiano Oliveros MD> Date Christiano Oliveros MD Cosigner Signature (If Indicated): Date CC: Delano Epperson MD CHEST PA AND LATERAL Observed: 06/22/2017 Status: F Source: [place] 12:03 PM [facility] REPOSITORY [facility] Imaging Services [address] [place] [address] Chest PA and Lateral MR#: [id number] Acct: [id number] Name: LANNY OLIVIER Rep #: [id number] : 1940 M 76 From: You Erwin MD PCP: Delano Epperson MD Status: REG ER Study: Chest PA and Lateral Date of Exam: 06/22/17 Exam# [id number] Ordering Dr: Chritsiano Oliveros MD STUDY: X-RAY CHEST REASON FOR EXAM: Male, 76 years old. Cough. TECHNIQUE: PA and lateral views of the chest. COMPARISON: None. FINDINGS: Scattered calcified granulomas. Mild increased linear markings at the lung bases suggestive of scarring. No focal infiltrate is seen. There is no demonstrated pleural abnormality. Normal size heart. Normal mediastinum and david. Normal visualized pulmonary arteries. There is atherosclerotic calcification of the aortic arch with tortuosity. There are diffuse degenerative changes of the visualized thoracic spine. Normal visualized ribs, clavicles, and shoulders. There is no demonstrated abnormality of the visualized soft tissue structures of the upper abdomen. RAD/Chest PA and Lateral IMPRESSION: Mild increased markings at the lung bases suggestive of possible scarring. No acute abnormality is seen. Electronically Signed: You Erwin MD at 12:36 EST Tel [phone], Service support , CC: Delano Epperson MD; Christiano Oliveros MD Paddle Dyeing Machine Operator: Signed ALLERGIES ALLERGIES DATE TYPE / CODE NAME / CODE REACTION SEVERITY SOURCE 06/15/2018 Drug No Known Unknown [place] Allergy/416 Allergies/B53123 Community 416107(OM 0388(RXNORM) [facility] ED CT) Repository 11/14/2016 DRUG EZETIMIBE Myalgia Low [facility] INGREDI/[address] [place] 013100(SNOM Repository ED CT) 11/14/2016 DRUG EZETIMIBE Myalgia [facility] INGREDI/[address] [place] 119134(SNOM Repository ED CT) 11/16/2014 Drug PLACXKV-MHF-CZX INTOLERANCE Low [facility] Class/52415 REDUCTASE [address] [place] 1003(SNOMED INHIBITORS Repository CT) 11/16/2014 Drug WQUZLMT-SCG-QEE INTOLERANCE [facility] Class/04408 REDUCTASE [place] 1003(SNOMED INHIBITORS Repository CT) NG/86596349 IOFHBNL-MMV-QQH [facility] 6(SNOMED REDUCTASE [facility] CT) INHIBITORS Repository NG/61143907 EZETIMIBE [facility] 6(SNOMED [facility] CT) Repository ENCOUNTERS ENCOUNTERS ADMIT/DISCHARGE ACCOUNT NUMBER ADMITTING ENCOUNTER LOCATION SOURCE CLASS 06/17/2018 [id number] Beto Lucia Inpatient [place] Encounter [facility] ding:[id number] Repository : GJ436Etz: 1 06/15/2018/06/15/19 [id number] Ambulatory BMSBuilding: [place] 19 BMS.[facility] Repository 06/14/2018 [id number] Ambulatory [facility] ding:CT Repository 06/09/2018/06/09/19 [id number] Emergency [place] 19 [facility] ding:ED Repository 06/09/2018/06/10/19 [id number] Ambulatory [address] [place] Repository 06/07/2018/06/07/19 [id number] Ambulatory [address] Repository 05/13/2018/12/20 [id number] Ambulatory [address] [place] Repository 05/13/2018/05/13/20 [id number] Ambulatory [address] MEDICAL Repository CENTERBuildi ng:AGGENS5 04/26/2018/04/28/20 [id number] IVAN RAMONE Astrid Inpatient [place] [address] Encounter [facility] MEDICAL Repository CENTERBuildi nARoom: 5201Bed: 04/26/2018/04/28/20 [id number] RAMONE LOVE Inpatient [address] Repository 04/26/2018 [id number] Ambulatory BMSBuilding: [place] BMS.Critical access hospital Repository 04/26/2018/04/26/20 [id number] Tania Puente Emergency [address] ding:EDRoom: Repository MS311 12/07/2017/12/09/19 [id number] Ambulatory [address] Repository 11/26/2017/11/27/19 [id number] Ambulatory [address] Repository 06/30/2017/06/30/19 [id number] aBn, Ambulatory [place] [address] Dr[address] Davidson [facility] Repository 06/25/2017/06/29/19 [id number] Ambulatory BMSBuilding: [place] 18 [facility] Repository 06/25/2017 [id number] [facility], Ambulatory BMSBuilding: [place] BMS.Critical access hospital Repository 06/25/2017 [id number] [facility], Ambulatory BMSBuilding: [place] BMS.Critical access hospital Repository 06/25/2017 [id number] [facility], Ambulatory BMSBuilding: [place] BMS.Critical access hospital Repository 06/25/2017 [id number] [facility], Ambulatory BMSBuilding: [place] BMS.Critical access hospital Repository 06/25/2017/06/29/19 [id number] [facility], Inpatient [address] ding:[id number] Repository : IB899Wyy: 1 06/25/2017 [id number] [facility], Ambulatory BMSBuilding: [place] BMS.WIP [facility] Hospital Repository 06/22/2017/06/22/19 [id number] Emergency [place] 18 [facility] ding:ED Repository PAYERS PAYERS ENCOUNTER GUARANTOR PAYER SUBSCRIBER SOURCE 06/17/2018 LANNY J Primary LANNY J [place] [id number] SR Insurance:MEDICARE PORTERDOB: Community [address], PART A BPolicy Number: [id number] [address]Kaf: [id number] Repository Date:2018-06-15 () 06/17/2018 Secondary LANNY J [place] Insurance:HUMANA PORTERDOB: [facility] [id number] Hospital Number: Repository [id number] Date:4689-07-13ZH [address] [address]YY: 06/17/2018 Tertiary NOT GIVENUNK [place] Insurance:SELF PAY [facility] Number: Effective Repository Date:2018-06-15 06/15/2018 LANNY J Primary LANNY J [place] [id number] SR Insurance:MEDICARE PORTERDOB: [facility] [address] [place], PART A BPolicy Number: [id number] General Hospital [address]Flr: [id number] Repository Date:2018-06-10 () 06/15/2018 Secondary LANNY J [place] Insurance:HUMANA PORTERDOB: [facility] [id number] Hospital Number: Repository [id number] Date:9923-45-44LJ [address] [place] [address]JR: 06/15/2018 Tertiary NOT GIVENUNK [place] Insurance:SELF PAY [facility] Number: Effective Repository Date:2018-06-15 06/14/2018 LANNY J Primary LANNY J [place] [id number] SR Insurance:MEDICARE PORTERDOB: Community [address] [place], PART A BPolicy Number: [id number] General Hospital [address]Lxc: [id number] Repository Date:2018-06-10 () 06/14/2018 Secondary LANNY J [place] Insurance:HUMANA PORTERDOB: [facility] COMMERCIALPoly [id number] Hospital Number: Repository [id number] Date:5478-89-46ZP[address] [address]YU: 06/14/2018 Tertiary NOT GIVENUNK [place] Insurance:SELF PAY [facility] Number: Effective Repository Date:2018-06-10 06/09/2018 LANNY J Primary LANNY J [place] [id number] SR Insurance:MEDICARE PORTERDOB: [facility] [address] [place], PART A BPolicy Number: [id number] Hospital [place] [address]Kts: [id number] Repository Date:2018-06-09 () 06/09/2018 Secondary LANNY J [place] Insurance:HUMANA PORTERDOB: [facility] [id number] Hospital Number: Repository [id number] Date:3172-46-70TU [address] [address]NZ: 06/09/2018 Tertiary NOT GIVENUNK [place] Insurance:SELF PAY [facility] Number: Effective Repository Date:2018-06-09 05/13/2018 LANNY J Primary LANNY J [facility] PORTERDOB: Insurance:MEDICARE A PORTERDOB: Health System AND BPolicy Number: [id number] Repository [place] [address] [id number] [place], [place] Date: [address]Fss: () 05/13/2018 Secondary LANNY J [facility] Insurance:HUMANA PORTERDOB: Health System MEDICARE [id number] Repository SUPPLEMENTPolicy Number: [id number] Date: 04/26/2018 LANNY J Primary LANNY J [facility] PORTERDOB: Insurance:MEDICARE A PORTERDOB: Health System AND BPolicy Number: [id number] Repository [place] [address] [id number] [place], [place] Date: [address]Dhz: (HP) 04/26/2018 Secondary LANNY J [facility] Insurance:HUMANA PORTERDOB: Health System MEDICARE [id number] Repository SUPPLEMENTPolicy Number: [id number] Date: 04/26/2018 LANNY J Primary LANNY J [place] [id number] SR Insurance:MEDICARE PORTERDOB: Community [address] [place], PART A BPolicy Number: [id number] General Hospital [address]Gir: [id number] Repository Date:2018-04-26 (HP) 04/26/2018 Secondary LANNY J [place] Insurance:HUMANA PORTERDOB: [facility] [id number] Hospital Number: Repository [id number] Date:2287-26-42UH [address] [place] [address]HT: 04/26/2018 Tertiary NOT GIVENUNK [place] Insurance:SELF PAY [facility] Hospital Number: Effective Repository Date:2018-04-26 04/26/2018 LANNY J Primary LANNY J [place] [id number] SR Insurance:MEDICARE PORTERDOB: [facility] [place], PART A BPolicy Number: [id number] General Hospital [address]Uws: [id number] Repository Date:2018-04-26 () 04/26/2018 Secondary LANNY J [place] Insurance:HUMANA PORTERDOB: [facility] [id number] Hospital Number: Repository [id number] Date:3670-77-67XR [address] [place] [address]XZ: 04/26/2018 Tertiary NOT GIVENUNK [place] Insurance:SELF PAY [facility] Number: Effective Repository Date:2018-04-26 06/30/2017 Primary NOT [id number] [facility] Insurance:[facility] Number: [facility] [id number] [address]Utj: 419) Repository Date:Plan 321 () Name:[address] [address]XE: 06/25/2017 LANNY J Primary LANNY J [place] [id number] SR Insurance:MEDICARE PORTERDOB: Community [address] [place], PART A BPolicy Number: [id number] General Hospital [address]Umg: [id number] Repository Date:2017-06-25 () 06/25/2017 Secondary LANNY J [place] Insurance:HUMANA PORTERDOB: Community COMMERCIALPolicy [id number] Hospital Number: Repository [id number] Date:3342-99-22XN [address] [place] [address]NQ: 06/25/2017 Tertiary NOT GIVENUNK [place] Insurance:SELF PAY [facility] Hospital Number: Effective Repository Date:2017-06-25 06/25/2017 LANNY J Primary LANNY J [place] [id number] SR Insurance:MEDICARE PORTERDOB: [facility] [address] [place], PART A BPolicy Number: [id number] General Hospital [address]Ixo: [id number] Repository Date:2017-06-25 () 06/25/2017 Secondary LANNY J [place] Insurance:HUMANA PORTERDOB: [facility] [id number] Hospital Number: Repository [id number] Date:0868-45-18RE [address] [place] [address]SF: 06/25/2017 Tertiary NOT GIVENUNK [place] Insurance:SELF PAY [facility] Hospital Number: Effective Repository Date:2017-06-25 06/25/2017 LANNY J Primary LANNY J [place] [id number] SR Insurance:MEDICARE PORTERDOB: [facility] [address] [place], PART A BPolicy Number: [id number] General Hospital [address]Qyn: [id number] Repository Date:2017-06-25 () 06/25/2017 Secondary LANNY J [place] Insurance:HUMANA PORTERDOB: Community COMMERCIALPolicy [id number] Hospital Number: Repository [id number] Date:0499-24-65FS [address] [place] [address]FH: 06/25/2017 Tertiary NOT GIVENUNK [place] Insurance:SELF PAY [facility] Number: Effective Repository Date:2017-06-25 06/25/2017 LANNY J Primary LANNY J [place] [id number] SR Insurance:MEDICARE PORTERDOB: Community [address] [place], PART A BPolicy Number: [id number] General Hospital [address]Tud: [id number] Repository Date:2017-06-25 () 06/25/2017 Secondary LANNY J [place] Insurance:HUMANA PORTERDOB: [facility] [id number] Hospital Number: Repository [id number] Date:9984-90-04CB [address] [address]KZ: 06/25/2017 Tertiary NOT GIVENUNK [place] Insurance:SELF PAY [facility] Hospital Number: Effective Repository Date:2017-06-25 06/25/2017 LANNY J Primary LANNY J [place] [id number] SR Insurance:MEDICARE PORTERDOB: [facility] [address] [place], PART A BPolicy Number: [id number] General Hospital [address]Wwq: [id number] Repository Date:2017-06-25 () 06/25/2017 Secondary LANNY J [place] Insurance:HUMANA PORTERDOB: [facility] [id number] Hospital Number: Repository [id number] Date:6676-65-34XK [address] [address]RS: 06/25/2017 Tertiary NOT GIVENUNK [place] Insurance:SELF PAY [facility] Number: Effective Repository Date:2017-06-25 06/25/2017 LANNY J Primary LANNY J [place] [id number] SR Insurance:MEDICARE PORTERDOB: [facility] [address], PART A BPolicy Number: [id number] [address]Axr: [id number] Repository Date:2017-06-25 () 06/25/2017 Secondary LANNY J [place] Insurance:HUMANA PORTERDOB: [facility] COMMERCIALPolicy [id number] Hospital Number: Repository [id number] Date:3956-77-18WW [address] [address]LM: 06/25/2017 Tertiary NOT GIVENUNK [place] Insurance:SELF PAY [facility] Number: Effective Repository Date:2017-06-25 06/25/2017 LANNY J Primary LANNY J [place] [id number] SR Insurance:MEDICARE PORTERDOB: [facility] [id number] [id number], PART A BPolicy Number: [id number] [address]Erj: [id number] Repository Date:2017-06-25 () 06/25/2017 Secondary LANNY J Effie Insurance:HUMANA PORTERDOB: [facility] [id number] Hospital Number: Repository [id number] Date:[id number] [address] [address]: 06/25/2017 Tertiary NOT GIVENUNK Crooks Insurance:SELF PAY [facility] Number: Effective Repository Date:2017-06-25 06/22/2017 LANNY J Primary LANNY J Effie [id number] SR Insurance:MEDICARE PORTERDOB: [facility] [id number] [id number], PART A BPolicy Number: [id number] General Hospital [address]Obi: [id number] Repository Date:2017-06-22 () 06/22/2017 Secondary LANNY J Crooks Insurance:HUMANA PORTERDOB: [facility] [id number] Hospital Number: Repository [id number] Date:[id number] [address] [address]YN: 06/22/2017 Tertiary NOT GIVENUNK Crooks Insurance:SELF PAY [facility] Number: Effective Repository Date:2017-06-22
== END 2018-06-09 19:37 | disposition home or self-care (01) ==
PROVIDERS: Emergency Provider Emergency Medicine; Family Provider Family Medicine; PCP Family Medicine
DX: R10.31 Right lower quadrant pain (principal); K63.9 Disease of intestine, unspecified; E11.9 Type 2 diabetes mellitus without complications; I10 Essential (primary) hypertension; F17.200 Nicotine dependence, unspecified, uncomplicated; Z79.4 Long term (current) use of insulin; Z79.899 Other long term (current) drug therapy; Z90.49 Acquired absence of other specified parts of digestive tract
CPT/HCPCS: 74176; 80053; 81001; 85025; 96360; 96361; 99283; J7030

== ENCOUNTER → 2018-06-14 17:48 | Outpatient (CLI) | payer MEDICARE, OTHER, SELFPAY ==
[2018-06-09 15:15] VITALS: BMI 25.8
--- NOTE | 2018-06-14 17:52 | CT_ITS ---
STUDY: CT ABDOMEN AND PELVIS WITH CONTRAST REASON FOR EXAM: Male, 77 years old. Abdominal pain RADIATION DOSAGE (If Supplied By Facility): CTDIvol = ( 10.79 ) mGy, DLP = ( 1517.24 ) mGycm TECHNIQUE: Transaxial images were obtained from the dome of the diaphragm to the symphysis pubis without oral contrast. 100ml ml of Isovue 300 contrast was administered. Sagittal and coronal images were reconstructed. Individualized dose optimization techniques were used for this CT. COMPARISON: 06/09/2018 FINDINGS: The visualized lung bases are clear. The visualized portions of the heart and pericardium are within normal limits. The patient is status post cholecystectomy. The liver is within normal limits. There are no suspicious hepatic lesions. There are calcified granulomata noted in the liver. The spleen is normal in size. There are calcified granulomata noted in the spleen. The pancreas is within normal limits. The adrenal glands are within normal limits. There is a stable punctate nonobstructing subcentimeter right renal stone. There are no additional urinary stones. There is no hydronephrosis. There are stable cysts noted in the kidneys. Normal visualized stomach. Again noted is a distended loop of distal small bowel which contain formed stool which is consistent with equalization. The cecum and descending colon are distended with stool. There is an obstructing colonic mass in the hepatic flexure which is consistent with neoplasm (for example image 41 series 601). The patient is status post appendectomy. The aorta is normal in caliber. There is no abdominal or pelvic free air, free fluid, fluid collection or lymphadenopathy. There are no destructive osseous lesions. CT/Abdomen/Pelvis WITH Contrast IMPRESSION: Obstructing mass in the hepatic flexure which is consistent with neoplasm. Stable distention of the distal small bowel, cecum and ascending colon with stool which is secondary to this mass. Electronically Signed: Pradip Quintana, at 18:24 EST Tel , Service support ,
--- OUTSIDE RECORDS SUMMARY | 2018-08-17 05:15 | XMS RPT_ITS ---
:1940 Author Organization OHIP Support Name Relationship Address Phone CLARISA OLIVIER Unavailable [address] [place] [address] ARLETH OLIVIER Unavailable Unavailable + [place] [address] R Unavailable Unavailable Unavailable OLIVIER, CLARISA Unavailable [address] [place] [address] R Unavailable Unavailable Unavailable OLIVIER, CLARISA Unavailable [address] [place] [address] R Unavailable Unavailable Unavailable OLIVIER, CLARISA Unavailable [address] [place] [address] R Unavailable Unavailable Unavailable OLIVIER, CLARISA Unavailable [address] [place] [address] R Unavailable Unavailable Unavailable OLIVIER, CLARISA Unavailable [address] [place] [address] R Unavailable Unavailable Unavailable OLIVIER, CLARISA Unavailable [address] [place] [address] R Unavailable Unavailable Unavailable OLIVIER, CLARISA Unavailable [address] [place] [address] R Unavailable Unavailable Unavailable OLIVIER, CLARISA Unavailable [address] [place] [address] R Unavailable Unavailable Unavailable OLIVIER, CLARISA Unavailable [address] [place] [address] R Unavailable Unavailable Unavailable OLIVIER, CLARISA Unavailable [address] [place] [address] R Unavailable Unavailable Unavailable OLIVIER, CLARISA Unavailable [address] [place] [address] R Unavailable Unavailable Unavailable AMISH OLIVIERE Unavailable [address] [place] [address] R Unavailable Unavailable Unavailable OLIVIERLILLYCLARISA Unavailable [address] [place] [address] R Unavailable Unavailable Unavailable Care Team Providers Name Role Phone Christiano Oliveros Attending Unavailable Zeenat, Delano Primary Care Unavailable Bran Acevedo Attending Unavailable Zeenat, Delano Primary Care Unavailable Reggie, Dale Admitting Unavailable Farida, Fox S. Consulting Unavailable Chicho, Beto Consulting Unavailable Reggie, Dale Admitting Unavailable Zeenat, Delano Primary Care Unavailable Reggie, Dale Consulting Unavailable Reggie, Dale Attending Unavailable Reggie, Dale Admitting Unavailable Sementi, Odalys Attending Unavailable Zeenat, Delano Primary Care Unavailable Farida, Fox S. Consulting Unavailable Chicho, Beto Consulting Unavailable Sementi, Odalys Consulting Unavailable Reggie, Dale Admitting Unavailable Sementi Odalys Attending Unavailable Zeenat, Delano Primary Care Unavailable Farida, Fox S. Consulting Unavailable Chicho, Beto Consulting Unavailable Sementi, Odalys Consulting Unavailable Reggie, Dael Admitting Unavailable Zeenat, Delano Primary Care Unavailable Farida, Fox S. Consulting Unavailable ELIZABETH Bodureaux Attending Unavailable Chicho, Beto Consulting Unavailable Sementi, Odalys Consulting Unavailable Reggie, Dale Attending Unavailable Reggie, Dale Admitting Unavailable Zeenat, Delano Primary Care Unavailable Farida, Fox S. Consulting Unavailable Chicho, Beto Consulting Unavailable Curtis, Kombian Consulting Unavailable Fabián Sales Attending Unavailable Reggie, Dale Referring Unavailable Zeenat, Delano Primary Care Unavailable Shavon Parker Attending Unavailable Koram, Tania Isis Admitting Unavailable Koram, Tania Isis Attending Unavailable Zeenat, Delano Primary Care Unavailable Zeenat, Delano Primary Care Unavailable FREDIS DORMAN Attending Unavailable CebulBeto Attending Unavailable Cebul, Beto Referring Unavailable Zeenat, Delano Primary Care Unavailable Tashabul Beto Attending Unavailable Zeenat, Delano Referring Unavailable Cebul, Beto Admitting Unavailable Cebul, Beto Attending Unavailable Cebul, Beto Referring Unavailable Zeenat, Delano Primary Care Unavailable Tavallaee, Dr. Stuart Admitting Unavailable Dr. Stuart Cevallos Attending Unavailable DELANO EPPERSON A Referring Unavailable DELANO EPPERSON A Attending Unavailable DELANO EPPERSON A Referring Unavailable VANESSA EPPERSONREY A Referring Unavailable DELANO EPPERSON A Attending Unavailable DELANO EPPERSON A Referring Unavailable RAMONE LOVE Admitting Unavailable BINTA CABRALES Attending Unavailable MANISHA ATKINS Consulting Unavailable MALLAT, RAMONE Attending Unavailable ZEENAT DELANO A Referring Unavailable MALLAT, ALI F Attending Unavailable Zeenat Delano A Referring Unavailable Zeenat Delano A Primary Care Unavailable MALLAT, ALI F Admitting Unavailable Delano Epperson A Primary Care Unavailable PRATEEK CABRALES Attending Unavailable MANISHA ATKINS Consulting Unavailable PROBLEMS PROBLEMS DATE TYPE CONDITION / CODE ATTENDING STATUS SOURCE 06/18/2018 Unknown 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, Community unspecified / Hospital C18.9(ICD-10) Repository 06/16/2018 Unknown C18.3 - Malignant Cebul Beto Active [place]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 hepatic Community flexure / Hospital C18.3(ICD-10) Repository 04/28/2018 Active Acute cholecystitis BINTA CABRALES Formerly [facility] / K81.0(ICD-10) Clinic Other [place] Repository 04/26/2018 Active Acquired absence of KERONBINTA Active [place] other specified Clinic Other parts of digestive [place] tract / Repository Z90.49(ICD-10) 04/28/2018 Admitting Unknown / KERON, Active [place] General diagnosis UNK(Unknown) [facility] Repository 02/27/2016 Active Type 2 diabetes NA Active [place] mellitus with Clinic Main unspecified [place] diabetic 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) 02/27/2016 Active 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 [place] 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 of insulin / Clinic Main Z79.4(ICD-10) [place] Repository 10/05/2015 Active Essential (primary) NA Active [place] hypertension / Clinic Main I10(ICD-10) [place] Repository 06/15/2015 Active Mixed NA Active [place] hyperlipidemia / Clinic Main E78.2(ICD-10) [place] Repository 07/16/2017 Unknown G03.9 - Meningitis, Reg[place], Dale Active [place] unspecified / Community G03.9(ICD-10) Hospital Repository 06/26/2017 Unknown M79.1 - Myalgia / Oliveros, Christiano Active [place] M79.1(ICD-10) [facility] Repository PROCEDURES PROCEDURES No Procedure Records FoundRESULTS RESULTS BEDSIDE GLUCOSE Collected: 06/20/2018 Status: F Source: [place] 6:40 AM [facility] REPOSITORY TYPE CODE TESTS RESULT OUT OF REFERENCE UNITS RANGE LAB L501.080 70-110 mg/dL High BEDSIDE GLU 115 Result Comment: MANAGEMENT OF PATIENT CARE PER NURSING PROTOCOL Performed By: #### L501.080 #### [facility] Point of Care [address] [place] [address] BEDSIDE GLUCOSE Collected: 06/19/2018 Status: F Source: [place] 9:32 PM [facility] REPOSITORY TYPE CODE TESTS RESULT OUT OF REFERENCE UNITS RANGE LAB L501.080 70-110 mg/dL High BEDSIDE GLU 146 Result Comment: MANAGEMENT OF PATIENT CARE PER NURSING PROTOCOL Performed By: #### L501.080 #### [facility] Point of Care [address] [place] [address] BEDSIDE GLUCOSE Collected: 06/19/2018 Status: F Source: [place] 4:50 PM [facility] REPOSITORY TYPE CODE TESTS RESULT OUT OF REFERENCE UNITS RANGE LAB L501.080 70-110 mg/dL High BEDSIDE GLU 114 Result Comment: MANAGEMENT OF PATIENT CARE PER NURSING PROTOCOL Performed By: #### L501.080 #### [facility] Point of Care [address] [place] [address] BEDSIDE GLUCOSE Collected: 06/19/2018 Status: F Source: [place] 11:58 AM [facility] REPOSITORY TYPE CODE TESTS RESULT OUT OF RANGE REFERENCE UNITS LAB L501.080 70-110 mg/dL Normal BEDSIDE GLU 104 Result Comment: MANAGEMENT OF PATIENT CARE PER NURSING PROTOCOL Performed By: #### L501.080 #### [facility] Point of Care [address] [place] [address] BEDSIDE GLUCOSE Collected: 06/19/2018 Status: F Source: [place] 6:53 AM [facility] REPOSITORY TYPE CODE TESTS RESULT OUT OF REFERENCE UNITS RANGE LAB L501.080 70-110 mg/dL High BEDSIDE GLU 123 Result Comment: MANAGEMENT OF PATIENT CARE PER NURSING PROTOCOL Performed By: #### L501.080 #### [facility] Point of Care [address] [place], [place] [id number] CBC-COMPLETE BLOOD CNT Collected: 06/19/2018 Status: F Source: [place] NO DIFF 6:48 AM [facility] REPOSITORY TYPE CODE TESTS RESULT OUT OF [...] MPV 9.8 Performed By: #### L100.0500 #### [facility] [address] [place], [place], [id number] BASIC METABOLIC Collected: 06/19/2018 Status: F Source: [place] PROFILE (BMP) 6:48 AM [facility] REPOSITORY TYPE CODE TESTS RESULT OUT OF [...] GAP 11 Performed By: #### L500.2500 #### [facility] [address] [facility] [place], [address] BEDSIDE GLUCOSE Collected: 06/18/2018 Status: F Source: [place] 10:11 PM [facility] REPOSITORY TYPE CODE TESTS RESULT OUT OF RANGE REFERENCE UNITS LAB L501.080 70-110 mg/dL Normal BEDSIDE GLU 93 Result Comment: MANAGEMENT OF PATIENT CARE PER NURSING PROTOCOL Performed By: #### L501.080 #### [facility] Point of Care [address] [facility] [place] [address] BEDSIDE GLUCOSE Collected: 06/18/2018 Status: F Source: [place] 4:17 PM [facility] REPOSITORY TYPE CODE TESTS RESULT OUT OF REFERENCE UNITS RANGE LAB L501.080 70-110 mg/dL High BEDSIDE GLU 153 Result Comment: MANAGEMENT OF PATIENT CARE PER NURSING PROTOCOL Performed By: #### L501.080 #### [facility] Point of Care [address] [facility] [place] [address] BEDSIDE GLUCOSE Collected: 06/18/2018 Status: F Source: [place] 2:34 PM [facility] REPOSITORY TYPE CODE TESTS RESULT OUT OF REFERENCE UNITS RANGE LAB L501.080 70-110 mg/dL High BEDSIDE GLU 153 Result Comment: MANAGEMENT OF PATIENT CARE PER NURSING PROTOCOL Performed By: #### L501.080 #### [facility] Point of Care [address] [place] [address] BEDSIDE GLUCOSE Collected: 06/18/2018 Status: F Source: [place] 6:43 AM [facility] REPOSITORY TYPE CODE TESTS RESULT OUT OF RANGE REFERENCE UNITS LAB L501.080 70-110 mg/dL Normal BEDSIDE GLU 107 Result Comment: MANAGEMENT OF PATIENT CARE PER NURSING PROTOCOL Performed By: #### L501.080 #### [facility] Point of Care [address] [place] [address] BASIC METABOLIC Collected: 06/18/2018 Status: F Source: [place] PROFILE (BMP) 5:47 AM [facility] REPOSITORY TYPE CODE TESTS RESULT OUT OF [...] GAP 8 Performed By: #### L500.2500 #### [facility] [address] [place], [address] CBC W/DIFF, AUTOMATED Collected: 06/18/2018 Status: F Source: [place] 5:47 AM [facility] REPOSITORY TYPE CODE TESTS RESULT OUT OF [...] Lymph 1.43 Performed By: #### L100.0100 #### [facility] [address] [place], [place], [address] BEDSIDE GLUCOSE Collected: 06/17/2018 Status: F Source: [place] 10:37 PM [facility] REPOSITORY TYPE CODE TESTS RESULT OUT OF RANGE REFERENCE UNITS LAB L501.080 70-110 mg/dL Normal BEDSIDE GLU 89 Result Comment: MANAGEMENT OF PATIENT CARE PER NURSING PROTOCOL Performed By: #### L501.080 #### [facility] Point of Care [address] [place] [address] BEDSIDE GLUCOSE Collected: 06/17/2018 Status: F Source: [place] 5:05 PM [facility] REPOSITORY TYPE CODE TESTS RESULT OUT OF RANGE REFERENCE UNITS LAB L501.080 70-110 mg/dL Normal BEDSIDE GLU 101 Result Comment: MANAGEMENT OF PATIENT CARE PER NURSING PROTOCOL Performed By: #### L501.080 #### [facility] Point of Care [address] [place] [address] OPERATIVE REPORT - Observed: 06/17/2018 Status: F Source: [place] ENDOSCOPY 11:02 AM [facility] Medical Records Department [address] [place] [address] Operative Report - Endoscopy MR#: [id number] Acct: [id number] Name: LANNY OLIVIER Rep #: [id number] : 1940 77 From: Beto Lucia MD [...] present medications. Procedure Code(s): --- Professional --- 98015, 53, Colonoscopy, flexible; diagnostic, including collection of [...] parts of digestive tract CPT copyright 2017 [employer]. All rights reserved. The codes documented in this report are preliminary and upon consulting sales manager review may be revised to meet current compliance requirements. Beto Lucia MD 06/17/2018 11:02:50 AM This report has been signed electronically. Number of Addenda: 0 Note Initiated On: 06/17/2018 10:38 AM 06/17/18 1102 Date Beto Lucia MD Cosigner Signature: Date (if indicated) CC: Delano Epperson MD; Beto Lucia MD Date Dictated: 06/17/18 1038 Date Transcribed: Infrastructure Developer: IVANIA Signed BASIC METABOLIC Collected: 06/17/2018 Status: F Source: [place] PROFILE (BMP) 7:24 AM [facility] REPOSITORY TYPE CODE TESTS RESULT OUT OF [...] GAP 11 Performed By: #### L500.2500 #### [facility] [address] [place], [address] CBC W/DIFF, AUTOMATED Collected: 06/17/2018 Status: F Source: [place] 7:24 AM [facility] REPOSITORY TYPE CODE TESTS RESULT OUT OF [...] Lymph 1.53 Performed By: #### L100.0100 #### [facility] [address] [place], [address] HEMOGLOBIN A1C Collected: 06/17/2018 Status: F Source: [place] 7:24 AM [facility] REPOSITORY Order Comment: Comments: add on to labs already drawn TYPE CODE TESTS RESULT OUT OF RANGE REFERENCE UNITS LAB L501.9985 4.2-6.3 % High HGB A1C 7.0 Performed By: #### L501.9985 #### [facility] [address] [place], [address] SURGERY VISIT REPORT Observed: 06/15/2018 Status: F Source: [place] 5:04 PM [facility] REPOSITORY [facility] [address] [place] [address] OFFICE VISIT Date of Service: 06/15/18 MR#: [id number] Acct: [id number] Name: LANNY OLIVIER Rep #: [id number] : 1940 Provider: Beto Lucia MD Age/Sex: 77/M Location: [facility] Status: Signed Intake Vital Signs06/15/18 Body Mass Index (BMI) 25.8 06/15/18 Height 5 ft 10 in 06/15/18 Weight: 182 lb Intake Visit Reasons: discuss CT/ c-scope Serology Technician Required: No Is patient in pain?: No [...] 26, 2018 patient was seen at the [facility]. A different surgical group was consulted and it was recommended the patient be sent to [place] [facility]. Patient sent me went to [facility] and subsequently on April 27 underwent a [...] very little. He then returned to the [facility] emergency room on June 09, 2018. [...] is that June 25, 2017 at the [facility] he had an echocardiogram showing an [...] just a month ago at [facility] he had a laparoscopic cholecystectomy. Contrasted CT scan obtained on June 14, 2018 at the [facility] shows nonobstructing right renal stone. Evidence [...] as noted. CC: Dr. Delano Epperson and Dr Fredis Lucia M.D., F.A.C.S. 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 Colon location: hepatic flexure 06/15/18 1704 <Electronically signed by Beto Lucia MD> Date Beto Lucia MD Cosigner Signature: Date (if applicable) CC: FREDIS DORMAN MD; Delano Epperson MD ABDOMEN/PELVIS WITH Observed: 06/14/2018 Status: F Source: [place] CONTRAST 5:52 PM [facility] REPOSITORY [facility] [address] [place] [address] Abdomen/Pelvis WITH Contrast MR#: [id number] Acct: [id number] Name: LANNY OLIVIER Wanda Rep #: [id number] : 1940 M 77 From: Pradip Quintana MD PCP: Delano Epperson MD Status: REG CLI Study: Abdomen/Pelvis WITH Contrast Date of Exam: 06/14/18 Exam# [id number] Ordering Dr: Beto Lucia MD STUDY: CT [...] CC: Delano Epperson MD; Beto Lucia MD Infrastructure Developer: Signed OBSOLETE Observed: 06/11/2018 Status: COMPLETED Source: [place] 12:00 AM [facility] RE[facility]IT[facility] LAN[facility] OLIVIER ([id number]) 1940 M Date Time Provider Department 06/11/18 DELANO EPPERSON During your visit today, we recorded the following information about you: Cece Javier RN 06/11/2018 10:57 AM Signed Ronna torres to report that incorrect brand of test strips was sent to pharmacy 2 days ago. Patient needs Accu check Xuan plus test strips instead. Order pended, please file. Thank you, Cece Javier, TYRESE Epperson MD 06/11/2018 12:25 PM Signed The following approved medication requests have been transmitted electronically. Signed Prescriptions Disp Refills blood sugar diagnostic (ACCU-CHEK XUAN PLUS TEST STRP) test strip 150 Strip 11 Sig: Test blood sugar(s) 3-4 times daily. Dx: Type 2 DM - Uncontrolled E11.139 Insulin: Yes Authorizing Provider: DELANO EPPERSON MD Allergies As of Date: 06/11/2018 Noted Allergy Reaction FFABJQR-EWW-ELN REDUCTASE INHIBIT*11/16/2014 5 - Intolerance Comments: myalgia [...] EMERGENCY DEPARTMENT Observed: 06/10/2018 Status: F Source: [place] SUMMARY 1:24 AM [facility] REPOSITORY [facility] Medical Records Department [address] [place] [address] Emergency Department Summary 06/09/18 1627 MR#: [id number] Acct: [id number] Name: LANNY OLIVIER Rep #: [id number] : 1940 77 From: Fredis Dorman MD [...] your Primary Care Provider. Call [facility] ([phone]) or report to the closest Emergency Room. Call 911 if necessary. 06/09/181916 <Electronically signed by Fredis Dorman MD> Date Fredis Dorman MD Cosigner Signature (If Indicated): Date CC: Delano Epperson MD; Beto Lucia MD URINALYSIS, COMPLETE Collected: 06/09/2018 Status: F Source: [place] 5:20 PM [facility] REPOSITORY Order Comment: Order Date: 06/09/18 How [...] MUCUS, URINE Performed By: #### L400.0001 #### [facility] [address] [place], [address] CBC W/DIFF, AUTOMATED Collected: 06/09/2018 Status: F Source: [place] 4:20 PM [facility] REPOSITORY TYPE CODE TESTS RESULT OUT OF [...] Lymph 2.04 Performed By: #### L100.0100 #### [facility] [address] [place], [place], [address] COMPREHENSIVE METABOLIC Collected: 06/09/2018 Status: F Source: [facility] 4:20 PM [facility] REPOSITORY TYPE CODE TESTS RESULT OUT OF [...] GAP 8 Performed By: #### L500.4050 #### [facility] [address] [facility] [place], [address] ABDOMEN/PELVIS WITHOUT Observed: 06/09/2018 Status: F Source: [place] CONT 4:13 PM [facility] REPOSITORY [facility] Services [address] [place] [address] Abdomen/Pelvis without Cont MR#: [id number] Acct: [id number] Name: LANNY OLIVIER Rep #: [id number] : 1940 M 77 From: Piero [place] MD PCP: Delano Epperson MD Status: REG ER Study: Abdomen/Pelvis without Cont Date of Exam: 06/09/18 Exam# [id number] Ordering Dr: Fredis Dorman MD STUDY: CT [...] CC: FREDIS DORMAN MD; Delano Epperson MD Infrastructure Developer: Signed PROGRESS Observed: 06/09/2018 Status: COMPLETED Source: [place] 1:46 PM [facility] REPOSITORY HNO ID: [id number] Author: Delano Epperson Service: (none) Author Type: [...] CHOLECYSTECTOMY 04/27/2018 - COLONOSCOP W/ OR W/O [facility] SPEC 10/15/06 repeat due 2017 - FECAL OCCULT BLOOD TEST 03/14/2016 Neg - REMV CATARACT EXTRACAP,INSERT LENS 2011 bilateral - REPAIR ING HERNIA,5+Y/O,REDUCIBL 1981 Hernia repair, inguinal: right Family History FAMILY HISTORY Problem Relation Age of Onset - Cancer Mother age 76 cancer stomach - Stroke Father age 77 - Diabetes Brother age 62 - Coronary Artery Disease Brother age 42 Patient Allergies ALLERGIES Allergen Reactions - Kfwinem-Jys-Fmc Red* Intolerance myalgia - Zetia [Ezetimibe] Myalgia [...] 1 tablet by mouth once daily. 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 [place] 0.30 - 0.82 thou/cmm 1.86 (H) Abs. Eosin 0.04 - 0.54 thou/cmm 0.00 (L) Abs. Baso 0.01 - 0.08 thou/cmm 0.05 Pathologist See below Hemoglobin 13.0 - 17.0 g/dL 14.7 RDW-CV 11.5 - 15.0 % 14.4 Neut% % 84.0 Abs Neut (ANC) 1.45 - 7.50 k/uL 16.54 (H) Lymph% % 9.0 Abs Lymph 1.00 - 4.00 k/uL 1.78 [place]% % 6.2 Abs [place] <0.87 k/uL 1.22 (H) Eosin% % 0.4 [...] the abdomen. Patient will be sent to [place] [facility]. Signed Prescriptions Disp Refills blood sugar [...] MD CNOV Observed: 06/09/2018 Status: COMPLETED Source: [place] 1:20 PM [facility] REPOSITORY Office Visit ([facility]) JULIA OLIVIERPH Wanda ([id number]) 1940 M Date Time Provider Department 06/09/18 1:20 PM DELANO EPPERSON [facility]AMP[facility] During your visit today, we recorded the following information about you: Temperature Pulse Respiration Blood pressure 98.7 degrees 80/minute 12/minute 114/48 Weight 81.6 kg Delano Epperson MD 06/09/2018 7:58 PM Signed Chief Complaint Patient presents with: Recheck: 6 months HPI Lanny Muñoz Delonte is a 77 year old male who [...] retinopathy, with long-term current use of insulin ([facility]) 02/27/2016 - 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 Previous Surgical History PAST SURGICAL HISTORY Procedure Laterality Date - 2D ECHO (EXEP) 06/25/2017 EF=60%, no valve issues - APPENDECTOMY 1966 - CHOLECYSTECTOMY 04/27/2018 - COLONOSCOP W/ OR W/O [facility] SPEC 10/15/06 repeat due 2016 [...] 43 Patient Allergies ALLERGIES Allergen Reactions - Fvlcrmt-Eaa-Fnj Red* Intolerance myalgia - Zetia [Ezetimibe] Myalgia [...] 1 tablet by mouth once daily. 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 [place] 0.30 - 0.82 thou/cmm 1.86 (H) Abs. Eosin 0.04 - 0.54 thou/cmm 0.00 (L) Abs. Baso 0.01 - 0.08 thou/cmm 0.05 Pathologist See below Hemoglobin 13.0 - 17.0 g/dL 14.7 RDW-CV 11.5 - 15.0 % 14.4 Neut% % 84.0 Abs Neut (ANC) 1.45 - 7.50 k/uL 16.54 (H) Lymph% % 9.0 Abs Lymph 1.00 - 4.00 k/uL 1.78 [place]% % 6.2 Abs [place] <0.87 k/uL 1.22 (H) Eosin% % 0.4 [...] the abdomen. Patient [facility] be sent to [facility]. Signed Prescriptions Disp Refills blood sugar diagnostic ([facility]) test strip 150 Bottle 11 [...] to next visit. Referring Provider: DELANO EPPERSON [[id number]] Allergies As of Date: 06/09/2018 Noted Allergy Reaction ALOSHWZ-KMC-MLZ REDUCTASE INHIBIT*11/16/2014 5 - Intolerance Comments: myalgia [...] 1 BASIC METABOLIC PNL [SQBMP] Order #: [id number] FUTURE HGB A1C [GLORW4T] Order #: [id number] FUTURE LIPID PANEL, NONFASTING [SQLIPNF] Order #: [id number] FUTURE Prescriptions as of 06/09/2018 Sig: BLOOD [...] AND DIFFERENTIAL Collected: 06/07/2018 Status: F Source: [facility] 9:18 AM CLINIC MAIN CAMPUS REPOSITORY TYPE [...] k/uL Abs Lymph 1.78 LAB AMONO % [place]% 6.2 LAB AAMONO <0.87 k/uL Abs [place] High 1.22 LAB AEOS % Eosin% 0.4 LAB AAEOS <0.46 k/uL Abs Eosin 0.08 LAB ABASO % Baso% 0.4 LAB AABASO <0.11 k/uL Abs Baso 0.08 LAB AUNRBC 0 /100 WBC NRBCs 0.0 LAB ABNRBC <0.01 k/uL Absolute nRBC <0.01 LAB DTYP DTYPE Auto Diff Performed By: #### CBCDIF, CMP, LIPB, HBA1C #### [facility] [address] [place], [place] [address] COMP METABOLIC PANEL Collected: 06/07/2018 Status: F Source: [facility] 9:18 AM [facility] MAIN CAMPUS REPOSITORY TYPE CODE TESTS RESULT OUT OF REFERENCE UNITS RANGE LAB TP 6.3-8.0 g/dL Protein, Total 6.9 LAB ALB 3.9-4.9 g/dL Albumin 4.2 LAB CA 8.5-10.2 mg/dL Calcium, Total 9.5 LAB TBIL 0.2-1.3 mg/dL Bilirubin, Total 0.6 LAB ALKP 38-113 U/L Alkaline Phosphatase 82 LAB AST 14-40 U/L Low AST 10 LAB GLU 74-99 mg/dL Glucose High 165 Result Comment: The [place] Diabetes Association (ADA) provides guidance for cutoff [...] Standards of Medical Care in Diabetes 2016, [place] Diabetes Association. Diabetes Care. 2016.39(Suppl 1). LAB [...] By: #### CBCDIF, CMP, LIPB, HBA1C #### [facility] [address] [place], [place] [address] LIPID PANEL, BASIC Collected: 06/07/2018 Status: F Source: [facility] 9:18 AM [facility] REPOSITORY TYPE CODE TESTS RESULT [...] Desk Reference: National Heart, Lung, and Blood [place]. National Institutes of Health. 2001: NIH Publication No. 01-3305. 2. An International Atherosclerosis Society position paper: global recommendations for the management of dyslipidemia: executive summary, Atherosclerosis. 2014: 232(2):410-413. Performed By: #### CBCDIF, CMP, LIPB, HBA1C #### [facility] [address] [place], [place] [address] HEMOGLOBIN A1C Collected: 06/07/2018 Status: F Source: [facility] 9:18 AM [facility] REPOSITORY TYPE CODE TESTS RESULT OUT OF REFERENCE UNITS RANGE LAB HGBA1C 4.3-5.6 % High Hemoglobin A1c 6.5 Result Comment: [place] Diabetes Association guidelines indicate that patients with HgbA1c in the range 5.7-6.4% are at increased risk for development of diabetes, and intervention by lifestyle modification may be beneficial. HgbA1c greater or equal to 6.5% is considered diagnostic of diabetes. LAB HBA0 mg/dL Est. Average Glucose 140 Result Comment: eAG: (Estimated average glucose) is a calculated value from HgbA1c and is enrollment representative of the average blood glucose level in the last 2-3 month period. Performed By: #### CBCDIF, CMP, LIPB, HBA1C #### [facility] [address] [place], [place] [address] CNOV Observed: 05/13/2018 Status: COMPLETED Source: [facility] 3:15 PM CLINIC OTHER CAMPUS REPOSITORY Office Visit (AGGENS5) LANNY OLIVIER ([id number]) 1940 M Date Time Provider Department 05/13/18 3:15 PM RAMONE LOVE5 During your visit today, we recorded the following information about you: Pulse Blood pressure Weight Height 76/minute 100/54 86.6 kg 1.778 m Ramone Love MD 05/13/2018 3:36 PM Signed Patient referred by: Delano Epperson MD [address] [facility] [address] No chief complaint on file. 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* [employer] Social History Main Topics Smoking status: Former Smoker Packs/day: 1.00 Years: 40.00 Types: Cigarettes Smokeless tobacco: Never Used Comment: QUIT 2003 Alcohol use: No Drug use: No Sexual activity: Yes Partners with: Female Other Topics 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 Insulin Powers, Disposable, (BD ULTRA-FINE MIAN PEN NEEDLES) 32 gauge x 5/32 ndle Use one needle for each dose. 4/day. Insulin Syringe-Needle U-100 (BD INSULIN SYRINGE ULTRA-FINE) 0.5 mL 31 gauge x 5/16 syrg Use daily as directed Lancets (ONE TOUCH ULTRASOFT LANCETS) Misc lancets Use as directed lisinopril-hydrochlorothiazide (PRINZIDE, ZESTORETIC) 20-25 mg per tablet Take 1 tablet by mouth once daily. metFORMIN ER (GLUCOPHAGE XR) 500 mg 24 hr tablet Take 2 tablets by mouth twice daily before meals. tamsulosin ER (FLOMAX) 0.4 mg cap Take 1 capsule by mouth once daily. No current facility-administered medications for this visit. ALLERGIES Allergen Reactions - Azukmow-Fqb-Fix Red* Intolerance myalgia - Zetia [Ezetimibe] Myalgia [...] when necessary basis Referring Provider: DELANO EPPERSON [[id number]] Allergies As of Date: 05/13/2018 Noted Allergy Reaction MWUNJEU-TIH-HLQ REDUCTASE INHIBIT*11/16/2014 5 - Intolerance Comments: myalgia [...] 05/13/18 PROGRESS Observed: 05/13/2018 Status: COMPLETED Source: [facility] 3:10 PM CLINIC OTHER CAMPUS REPOSITORY HNO ID: [id number] Author: Ramone Love Service: (none) Author Type: Physician Type: Progress Notes Filed: 05/13/2018 3:36 PM Note Text: Patient referred by: Delano Epperson MD [address] [facility] [address] No chief complaint on file. 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 Insulin Powers, Disposable, (BD ULTRA-FINE MIAN PEN NEEDLES) 32 gauge x 5/32 ndle Use one needle for each dose. 4/day. Insulin Syringe-Needle U-100 (BD INSULIN SYRINGE ULTRA-FINE) 0.5 mL 31 gauge x 5/16 syrg Use daily as directed Lancets (ONE TOUCH ULTRASOFT LANCETS) Misc lancets Use as directed lisinopril-hydrochlorothiazide (PRINZIDE, ZESTORETIC) 20-25 mg per tablet Take 1 tablet by mouth once daily. metFORMIN ER (GLUCOPHAGE XR) 500 mg 24 hr tablet Take 2 tablets by mouth twice daily before meals. tamsulosin ER (FLOMAX) 0.4 mg cap Take 1 capsule by mouth once daily. No current facility-administered medications for this visit. ALLERGIES Allergen Reactions - Irtojdw-Lvg-Wzi Red* Intolerance myalgia - Zetia [Ezetimibe] Myalgia [...] COLEMAN Joseph Observed: 04/30/2018 Status: COMPLETED Source: [facility] 12:00 AM CLINIC OTHER CAMPUS REPOSITORY Telephone (AKPRAD) LANNY OLIVIER ([id number]) 1940 M Date Time Provider Department 04/30/18 [...] As of Date: 04/30/2018 Noted Allergy Reaction LQRLMBM-BOX-DDY REDUCTASE INHIBIT*11/16/2014 5 - Intolerance Comments: myalgia [...] daily as directed LANCETS Use as directed [employer] ULTRA TEST STRIPS Test blood sugar 3-4 [...] LEAD ELECTROCARDIOGRAM Observed: 04/29/2018 Status: F Source: [place] 1:29 PM [facility] REPOSITORY [facility] [address] [place] [address] [id number] 12 Lead EKG 04/26/18 1350 MR#: [id number] Acct: [id number] Name: OLIVIERLANNY RAMIREZ Rep #: [id number] : 1940 77 From: Vinny Mao MD [...] Abnormal ECG Confirmed by CAMI FINNEGAN, VINNY ([id number]), newspaper photo editor KOTA WANG ([id number]) on 04/29/2018 1:29:08 PM Referred By: ОЛЬГА Confirmed By:VINNY MAO MD 04/29/18 1329 Date Vinny Mao MD CC: MD Miguel Parker; Delano Epperson MD Signed CNPN Observed: 04/29/2018 Status: COMPLETED Source: [facility] 12:00 AM [facility] OTHER [facility] REPOSITORY Telephone (LASHONPRAAna M) LANNY OLIVIER ([id number]) 1940 M Date Time Provider Department 04/29/18 ALEKSANDRA ROBERTSON) ANN During your visit today, we recorded the following information about you: Aleksandra Robertson APRN.CNP 04/29/2018 5:24 PM Signed Attempt to call patient at home number listed in EPIC. Voice message left on answering machine. Aleksandra Robertson APRN.CNP Pager: [phone] Allergies As of Date: 04/29/2018 Noted Allergy Reaction ARMNYNL-EAW-JSR REDUCTASE INHIBIT*11/16/2014 5 - Intolerance Comments: myalgia [...] daily as directed LANCETS Use as directed [employer] ULTRA TEST STRIPS Test blood sugar 3-4 [...] 04/29/18 CNDS Observed: 04/28/2018 Status: COMPLETED Source: [facility] 3:31 PM CLINIC OTHER CAMPUS REPOSITORY HNO ID: [id number] Author: Neva Ramírez ([facility]) Aniceto Service: General Surgery Author Type: Nurse [...] old male presented as a transfer from [place] ED with RUQ pain x 2 days [...] you become constipated, you may use any bedk-pfb-kzkksgq treatment such as Milk of Magnesia, Sennakot, [...] to call for appointment?: Yes Ramone Love [phone] 1 [facility] [address] [facility] [address] PCP Requested Referral Follow-Up Appointment With: PCP as needed When: In: Patient/Parents to call for appointment?: Yes Follow-Up Appointment For voiding trial When: In 1 week Patient/Parents to call for appointment?: Yes Cheo Glover Jr. [phone] [address] [facility] [address] PCP Requested Referral Additional Provider to Provider Information: No notes on file Transitions of Care Critical Issues: SPECIALIST FOLLOW-UP: Dr Love, Dr Gamez LABS AND PROCEDURES PENDING AT DISCHARGE: Pathology Results (to be discussed at office visit) FOLLOW-UP APPOINTMENTS ALREADY SCHEDULED WITH A [facility] PROVIDER: Future Appointments Date Time Provider Department Center 06/09/2018 1:20 PM Delano CID [facility] ALLERGIES Allergen Reactions - Wqbarhj-Lxa-Sve Red* Intolerance myalgia - Zetia [Ezetimibe] Myalgia [...] bedtime. Qty: 15 Pen Refills: 1 Insulin Powers, Disposable, (BD ULTRA-FINE MIAN PEN NEEDLES) 32 gauge x 5/32 ndle Use one needle for each dose. 4/day. Qty: 360 Each Refills: 3 Insulin Syringe-Needle U-100 (BD INSULIN SYRINGE ULTRA-FINE) 0.5 mL 31 gauge x 5/16 syrg Use daily as directed Qty: 100 Syringe Refills: 3 Lancets (ONE TOUCH ULTRASOFT LANCETS) Misc lancets Use as directed Qty: 100 Each [...] management of this patient. SIGNATURE: Neva Moreland APRN.[facility] PAGER/CONTACT #: [phone] DATE: April 28, 2018 TIME: 3:32 PM URINALYSIS ROUTINE Collected: 04/28/2018 Status: F Source: [facility] 2:58 PM HEALTH SYSTEM REPOSITORY TYPE CODE [...] Urine NEGATIVE LAB SPG(LOINC) 1.005-1.030 Specific 1.016 [place], Ur LAB PHUR(LOINC 5.0-8.0 ) pH,Urine 6.0 [...] Cast 0.0 Performed By: #### URIN2 #### [place] [address] Observed: 04/28/2018 Status: F Source: [facility] URINE 2:15 PM HEALTH SYSTEM REPOSITORY Test performed at [facility] <10,000 CFU/ml gram positive organisms cultured. No further identification or susceptibility testing will be performed. Plates will be held for 5 days. Performed By: #### C_URI #### [facility] [address] [place] [address] CONSULT Observed: 04/28/2018 Status: COMPLETED Source: [facility] 2:07 PM CLINIC OTHER CAMPUS REPOSITORY HNO ID: [id number] Author: Kenji Alegre MD Service: Urology Author Type: Resident [...] APPENDECTOMY 1966 - COLONOSCOP W/ OR W/O [facility] SPEC 10/15/06 repeat due 2016 - FECAL OCCULT BLOOD TEST 03/14/2016 Neg - REMV CATARACT EXTRACAP,INSERT LENS 2011 bilateral - REPAIR ING HERNIA,5+Y/O,REDUCIBL 1981 Hernia repair, inguinal: right ALLERGIES: ALLERGIES Allergen Reactions - Ribstje-Ile-Dnh Red* Intolerance myalgia - Zetia [Ezetimibe] Myalgia [...] meals. Disp: 360 tablet Rfl: 3 Insulin Powers, Disposable, (BD ULTRA-FINE MIAN PEN NEEDLES) 32 [...] (thou/cmm) Date Value 04/28/2018 326 Urinalysis: Specific [place], Ur Date Value Ref Range Status 06/02/2017 [...] PGY-1 April 28, 2018 2:13 PM Pager: [phone] GLUCOSE METER Collected: 04/28/2018 Status: F Source: [facility] 11:32 AM HEALTH SYSTEM REPOSITORY TYPE CODE TESTS RESULT OUT OF REFERENCE UNITS RANGE LAB GLUBL(LOINC 70-99 mg/dL ) High Glucose Meter 300 Result Comment: RN NOTIFIED Performed By: #### GLMET #### [place] [address] CASE MANAGEM Observed: 04/28/2018 Status: COMPLETED Source: [place] 8:05 AM [facility] OTHER CAMPUS REPOSITORY HNO ID: [id number] Author: Ching (Rn) TYRESE Hidalgo Service: Care [...] 28, 2018 TIME: 8:05 AM PAGER/CONTACT #: [phone] PROGRESS Observed: 04/28/2018 Status: COMPLETED Source: [place] 6:08 AM [facility] REPOSITORY HNO ID: [id number] Author: Neva Ramírez (Josep Moreland Service: General Surgery Author Type: Nurse Specialist [...] Air IANDO: Date 04/27/18699 - 04/28/1865804/28/18699 - 04/29/18 0659 Shift 8536-8678 6189-6103 2142-4270 24 Hour Total 1326-1571 7393-1188 1925-5294 24 Hour Total I N T A K E PO 120 120 PO 120 120 IV 1200 1000 1100 3300 D5 LR 1000 1000 2000 Zosyn IV 100 100 OR Crystalloid intake (mL) 1200 1200 Shift Total 1200 1120 1100 3420 O U T P U T Urine 755 001 4193 Straight cath (ml) 675 675 OR Urine Output 600 600 Blood 75 75 Estimated Blood loss 75 75 Shift Total 498 992 2124 Weight (kg) 88.5 88.5 88.5 88.5 88.5 [...] INTRAVENOUS q 6 H Labs: Recent Labs 04/28/1852904/27/18 0407 NA 136 135* K 3.4* 3.2* [...] discussed with attending: Dr Love SIGNATURE: Neva Moreland, DUPLICATING MACHINE SERVICER.BOOKKEEPER RECEPTIONIST PATIENT NAME: Lanny Olivier DATE: April 28, 2018 TIME: 6:08 AM Emergency General Surgery Service Pager: For questions or concerns Mon-Fri 6a-5p please page [phone]. After 5pm and on Weekends and Holidays, please page [phone]. NURSING PROG Observed: 04/28/2018 Status: COMPLETED Source: [facility] 5:34 AM CLINIC OTHER CAMPUS REPOSITORY HNO ID: [id number] Author: Nimisha KimbleRn) TYRESE Huggins Service: Nursing Author Type: Registered Nurse Type: Nursing Progress Note Filed: 04/28/2018 5:34 AM Note Text: Pt still not able to void at this time. Orders to straight cath pt at this time. MDRD GFR Collected: 04/28/2018 Status: F Source: [facility] 5:30 AM HEALTH SYSTEM REPOSITORY TYPE CODE TESTS RESULT OUT OF RANGE REFERENCE UNITS LAB GFRFN(LOINC >60mL/min/1.73m ) 2 eGFR 59.94 Result Comment: If the patient is , multiply the result by 1.210. Performed By: #### GFR #### [facility] [address] [place] [id number] HEMOGRAM/DIFF Collected: 04/28/2018 Status: F Source: [facility] 5:30 AM HEALTH SYSTEM REPOSITORY TYPE [...] LAB MONON(LOIN 0.30-0.82 thou/cmm C) Abs. High [place] 1.01 LAB EOSN(LOINC 0.04-0.54 thou/cmm ) Abs. Eosin 0.10 LAB BASON(LOIN 0.01-0.08 thou/cmm C) Abs. Baso 0.03 Performed By: #### CBCD1 #### [place] [address] COMPREHENSIVE PANEL Collected: 04/28/2018 Status: F Source: [facility] 5:30 AM HEALTH SYSTEM REPOSITORY TYPE [...] Gap 10 Performed By: #### P14 #### [place] [id number] NURSING PROG Observed: 04/27/2018 Status: COMPLETED Source: [facility] 7:13 PM CLINIC OTHER CAMPUS REPOSITORY HNO ID: [id number] Author: Yeison (Rn) TYRESE Dee Service: (none) Author Type: Registered Nurse Type: Nursing Progress Note Filed: 04/27/2018 7:15 PM Note Text: Nursing Progress Note Patient Name: Lanny Olivier Patient Location: [place] [address] [address] Daily Note:Spoke to Dr. Sanches regarding pt hasn't voided since catheter removed, and bladder scan of 670, will straight cath, no new orders received will continue to monitor. This note was completed by: Yeison Dee RN PROGRESS Observed: 04/27/2018 Status: COMPLETED Source: [place] 4:53 PM CLINIC OTHER CAMPUS REPOSITORY HNO ID: [id number] Author: Neva Espinoza) Aniceto Service: General Surgery [...] IS - Repeat labs in AM Neva Moreland APRN.BOOKKEEPER RECEPTIONIST CASE MGT INIT Observed: 04/27/2018 Status: COMPLETED Source: [facility] 2:42 PM CLINIC OTHER CAMPUS REPOSITORY HNO ID: [id number] Author: Ching KimbleRn) TYRESE Hidalgo Service: Care Management Author Type: Registered Nurse Type: Care Mgt Initial Assessment Filed: 04/27/2018 2:53 PM Note Text: CARE MANAGEMENT: ASSESSMENT AND DISCHARGE PLAN SERVICE DATE: 04/27/2018 SERVICE TIME: 2:42 PM PRIMARY CARE PHYSICIAN: Delano Epperson MD ADMISSION STATUS: Inpatient Needs Prior to Discharge: To Be Determined 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 No Advance Directive: Current Advance Directive: None Linen Attendant Attempted to Assist with AD Completion: Yes [...] Glucometer Has the Patient Been in a Long Term Facility in the Past 30 days? No SOCIAL: Living Arrangement: Home Lives With: Spouse Financial Resources: Retired Primary Contact: Extended Emergency Contact Information Primary Emergency Contact: OlivierArleth ramirez [place] Relation: Son Secondary Emergency Contact: MulberryRonna [place] Relation: Spouse Supportive: Yes Other Important Patient Contacts: None Caregiver Assessment: Caregiver is ready, willing and able to meet the patient's needs as recommended by the inter-professional team? Yes Patient's transition needs and plan for meeting these needs: Patient' family is willing/ able to care for him as needed including providing transportation at [place]. Will follow. Does the patient have an acute stroke diagnosis, or has the patient had a stroke during this admission? No Medication Adherence: I am convinced of the importance of my prescription medication: Agree completely - 0 I worry that my prescription medication will do more harm than good to me Disagree completely - 0 I feel financially burdened by my skx-ch-ekrmqy expenses for my prescription medication: Disagree completely [...] 27, 2018 TIME: 2:42 PM PAGER/CONTACT #: [phone] ANES POST Observed: 04/27/2018 Status: COMPLETED Source: [place] 1:42 PM CLINIC OTHER CAMPUS REPOSITORY HNO ID: [id number] Author: Cheo Zhao Service: Anesthesiology Author Type: [...] OP NOT Observed: 04/27/2018 Status: COMPLETED Source: [place] 12:07 PM CLINIC OTHER CAMPUS REPOSITORY HNO ID: [id number] Author: Ramone Love Service: General Surgery Author Type: Physician Type: Brief Op Note Filed: 04/27/2018 5:30 PM Note Text: BRIEF OPERATIVE / PROCEDURE NOTE LOG ID: [id number] Patient Name:Lanny Olivier CSN: [id number] Surgery/Procedure Date: 04/27/2018 Incision/Procedure Start Time: 9:47 AM Incision Close/Procedure End Time: 11:53 AM Surgeon(s)/Proceduralist(s) and Cork Insulator(s): Surgeon(s) and Role: * Ramone Love - Primary * Fatou (Mario Quan - Resident - Assisting No Additional [...] 27, 2018 TIME: 12:08 PM PAGER/CONTACT #: [phone] I was present for the entire procedure Observed: 04/27/2018 Status: F Source: [facility] [place] 11:15 AM HEALTH SYSTEM AND AER REPOSITORY Test performed at [facility] No growth No organisms seen Few Polymorphonuclear leukocytes Performed By: #### C_ANA #### [facility] [address] [place], [place] [address] Observed: 04/27/2018 Status: CANCELLED Source: [facility] 11:15 AM HEALTH SYSTEM REPOSITORY Test performed at [facility] ANES PREOP Observed: 04/27/2018 Status: COMPLETED Source: [place] 9:15 AM CLINIC OTHER CAMPUS REPOSITORY HNO ID: [id number] Author: Cheo Zhao Service: Anesthesiology Author Type: [...] APPENDECTOMY 1966 - COLONOSCOP W/ OR W/O [facility] SPEC 10/15/06 repeat due 2016 [...] by mouth twice daily before meals. Insulin Powers, Disposable, (BD ULTRA-FINE MIAN PEN NEEDLES) 32 gauge x 5/32 ndle Use one needle for each dose. 4/day. Insulin Syringe-Needle U-100 (BD INSULIN SYRINGE ULTRA-FINE) 0.5 mL 31 gauge x 5/16 syrg Use daily as directed Lancets (ONE TOUCH ULTRASOFT LANCETS) [facility] lancets Use as directed blood sugar diagnostic(ONE TOUCH ULTRA TEST STRIPS) Test blood sugar 3-4 times per day. Dx: 250.00. Insulin Dep: Yes Current Facility-Administered Medications: [MAR Hold due to Transfer] potassium chloride iv piggyback 20 mEq/100 mL 20 mEq INTRAVENOUS q 2 HR Neva Ramírez (Diesel Fitter Mechanic) Luke Last Rate: 50 mL/hr at 04/27/18 0636 20 mEq at 04/27/18 0636 [MAR Hold due to Transfer] influenza vaccine 180 mcg (Patients 65 years and older) (PF) (FLUZONE HIGH DOSE ) 0.5 mL INTRAMUSCULAR ONCE (IMMUNIZATION) Ramone Love [MAR Hold due to Transfer] dextrose 40 % 15 g 15 g ORAL PRN Lazaro (Mario Kenny Or [MAR Hold due to Transfer] glucagon 1 mg injection (GLUCAGEN) 1 mg INTRAMUSCULAR PRN Lazaro (Mario Kenny Or [MAR Hold due to Transfer] [...] Perkins MD Last Rate: 125 mL/hr at 04/27/18550 125 mL/hr at 04/27/18550 [MAR Hold due to Transfer] oxyCODONE IR [...] AM) Delano Perkins MD 40 mg at 04/27/18550 [MAR Hold due to Transfer] docusate sodium 100 mg cap(s) (COLACE) 100 mg ORAL BID Delano Perkins MD [MAR Hold due to Transfer] piperacillin-tazobactam iv piggyback 3.375 g in dextrose (iso-osmotic) 50 mL (ZOSYN) 3.375 g INTRAVENOUS q 6 H Delano Perkins MD Last Rate: 100 mL/hr at 04/27/18551 3.375 g at 04/27/18551 Allergies: ALLERGIES Allergen Reactions - Ajskpat-Mau-Kxc Red* Intolerance myalgia - Zetia [Ezetimibe] Myalgia [...] April 27, 2018 TIME: 9:16 AM CSN: [id number] OPERATIVE NO Observed: 04/27/2018 Status: COMPLETED Source: [place] 9:15 AM [facility] OTHER CAMPUS REPOSITORY O ID: [id number] Author: Ramone Love Service: General Surgery Author Type: Physician Type: Operative Report Filed: 04/27/2018 5:32 PM Note Text: OPERATIVE REPORT NAME: Lanny Olivier CSN: [id number] DATE: April 27, 2018 SURGEON and ASSISTANTS: Surgeon(s) and Role: * Ramone Love - Primary * Fatou (Mario Quan - Resident - Assisting No Additional Staff OPERATION: Laparoscopic cholecystectomy ANESTHESIA: General PREOPERATIVE DIAGNOSIS: Acute cholecystitis [K81.0] POSTOPERATIVE DIAGNOSIS: Acute cholecystitis [K81.0] gangrenous OPERATIVE INDICATIONS: The patient is a 77 year oldvqx-szzs-pfu male that presented to the ED with [...] 27, 2018 TIME: 12:10 PM PAGER/CONTACT #: [phone] I was present for the entire procedure NURSING PROG Observed: 04/27/2018 Status: COMPLETED Source: [place] 6:59 AM [facility] REPOSITORY HNO ID: [id number] Author: Paula Cox RN Service: Nursing Author Type: Registered Nurse Type: Nursing Progress Note Filed: 04/27/2018 6:59 AM Note Text: Nursing Progress Note Patient Name: Lanny Olivier Patient Location: [place] [address]/[id number]-* RN left message with patient's , Clarisa per pt's request to inform her that he will be going to surgery today. This note was completed by: Paula Cox RN PROGRESS Observed: 04/27/2018 Status: COMPLETED Source: [place] 6:13 AM [facility] REPOSITORY HNO ID: [id number] Author: Neva Ramírez (Kimmie) Aniceto Service: General [...] kg/m? O2 Therapy: Room Air IANDO: Date 04/26/18 0700 - 04/27/18 0659 04/27/18 0700 - 04/28/18 0659 Shift 8429-5456 3656-1016 2812-4956 24 Hour Total 6602-2874 4208-8754 4272-9093 24 Hour Total I N T A [...] For lap evelia today SIGNATURE: Neva Moreland APRN.BOOKKEEPER RECEPTIONIST PATIENT NAME: Lanny Olivier DATE: April 27, 2018 TIME: 6:14 AM Emergency General Surgery Service Pager: For questions or concerns Mon-Fri 6a-5p please page [phone]. After 5pm and on Weekends and Holidays, please page [phone]. HEMOGRAM Collected: 04/27/2018 Status: F Source: [facility] 4:07 AM HEALTH SYSTEM REPOSITORY TYPE CODE [...] MPV 10.6 Performed By: #### CBC1 #### [place] [address] BASIC PANEL Collected: 04/27/2018 Status: F Source: [facility] 4:[facility] REPOSITORY TYPE CODE TESTS RESULT [...] Gap 12 Performed By: #### P8 #### [place] [address] HEPATIC PANEL Collected: 04/27/2018 Status: F Source: [facility] 4:07 HEALTH SYSTEM REPOSITORY TYPE CODE TESTS RESULT [...] Bilirubin 0.38 Performed By: #### HEPAP #### [place] [address] SURGICAL TISSUE EXAM Observed: 04/27/2018 Status: F Source: [facility] 12:00 AM HEALTH SYSTEM REPOSITORY Test performed at [place] [address] NAME: LANNY OLIVIER REQUESTING: RAMONE LOVE M.D. [...] slightly ischemic. A lesion is not seen. Catering Truck Operator sections are submitted in formalin in one cassette. ARH:yelena SEGURA M.D. (Electronic signature on file) Signed out: 04/29/2018 14:52 PRINTED: 04/29/2018 Page 1 of 1 Performed By: #### SURG #### [place] [address] CEA Collected: 04/26/2018 Status: F Source: [facility] 10:30 PM HEALTH SYSTEM REPOSITORY TYPE CODE TESTS RESULT OUT OF RANGE REFERENCE UNITS LAB CEA(LOINC) 0.0-3.0 ng/mL High CEA 4.9 Result Comment: The reference range shown is for adult non-smokers. The range for smokers is 0-5.0 Testing performed by Chemiluminescence LOCI. Performed By: #### CEA #### [facility] [address] [place], [place] [address] HEMOGRAM/DIFF Collected: 04/26/2018 Status: F Source: [facility] 10:30 PM HEALTH SYSTEM REPOSITORY TYPE CODE [...] LAB MONON(LOIN 0.30-0.82 thou/cmm C) Abs. High [place] 1.86 LAB EOSN(LOINC 0.04-0.54 thou/cmm ) Low Abs. Eosin 0.00 LAB BASON(LOIN 0.01-0.08 thou/cmm C) Abs. Baso 0.05 Result Comment: Smear scanned; tech agrees with automated differential LAB PATH(LOINC) Interpreted by See below Result Comment: Kiran Sethi M.D., Pathologist Performed By: #### CBCD1 #### [place] [id number] HISTORY PHYSICAL Observed: 04/26/2018 Status: COMPLETED Source: [facility] 9:20 PM CLINIC OTHER CAMPUS REPOSITORY HNO ID: [id number] Author: Delano (Michael) MD Gregorio Service: Trauma Author Type: Resident Type: HANDP Filed: 04/26/2018 10:08 PM Note Text: ORTHOPAEDIC SURGERY HANDP Pt: LANNY OLIVIER Date of admssion: 04/26/2018 Admitting Physician: Dr. Cabrales - General Surgery Chief Complaint: RUQ pain HPI: 77 year old male presenting as a transfer from [place] ED today with RUQ pain x 2 [...] APPENDECTOMY 1966 - COLONOSCOP W/ OR W/O [facility] SPEC 10/15/06 repeat due 2016 - FECAL OCCULT BLOOD TEST 03/14/2016 Neg - REMV CATARACT EXTRACAP,INSERT LENS 2011 bilateral - REPAIR ING HERNIA,5+Y/O,REDUCIBL 1981 Hernia repair, inguinal: right Allergies: Vzbyfev-Eds-Bju Reductase Inhibitors; Zetia [Ezetimibe] Current Facility-Administered Medications: [...] AND PHYSICAL Observed: 04/26/2018 Status: F Source: [place] EXAM 6:58 PM [facility] REPOSITORY [facility] Medical Records Department [address] [place] [address] History and Physical 04/26/18 1719 MR#: [id number] Acct: [id number] Name: LANNY OLIVIER Rep #: [id number] : 1940 77 From: Tania Puente MD [...] You Erwin MD at 14:46 EST Tel [phone], Service support , Gallbladder Ultrasound 04/26/18 15:06 [...] thickening of gallbladder wall. [facility] * White cell count is 30. Total [...] Patient elects to be full code. Total naoo-er-gpps time 16 minutes. 6:57pm Decision was made by surgeon to transfer patient to tertiary care center subsequently as she wanted him to get a biliary stent; there was however nobody to do the procedure at that particular time. * Code Visit Inpatient E AND M: 92233 Init Hosp L3 Procedures: 64464 Advncd Care Plan 30 Min 04/26/18 8371 <Electronically signed by Tania Puente MD> Date Tania Puente MD Cosigner Signature: Date (if applicable) CC: Delano Epperson MD; Tania Puente MD Signed EMERGENCY DEPARTMENT Observed: 04/26/2018 Status: F Source: [place] SUMMARY 4:33 PM [facility] REPOSITORY [facility] Medical Records Department [address] [place] [address] Emergency Department Summary 04/26/18 1338 MR#: [id number] Acct: [id number] Name: LANNY OLIVIER Rep #: [id number] : 1940 77 From: Shavon Parker MD [...] recommendation they agreed to be transferred to [facility] if they have could capability to care for him or [facility], at this time we are calling these [...] any type of a neurologic condition or BOOKKEEPER RECEPTIONIST infection, he does have some vague right flank pain in his chief complaint quite honestly is constipation and vomiting CT abdomen flank shows signs consistent with acute cholecystitis see that report he also has some nonspecific lesions in the kidneys, his white count came back at 30,000 he was started on IV antibiotics, we paged Dr. Kirk regional vice president life sales for surgery she asked the patient be [...] Acute cholecystitis This note was generated with Priztag dictation software. It may contain incorrect words, [...] your Primary Care Provider. Call [facility] ([phone]) or report to the closest Emergency Room. Call 911 if necessary. 04/26/18 1621 <Electronically signed by Shavon Parker MD> Date [facility]avon Parker MD [facility] Signature (If Indicated): Date CC: Delano Epperson MD GALLBLADDER Observed: 04/26/2018 Status: F Source: [place] 3:07 PM [facility] REPOSITORY [facility] Imaging Services [address] [place] [address] Gallbladder MR#: [id number] Acct: [id number] Name: LANNY OLIVIER Rep #: [id number] : 1940 77 From: Jt Townsend MD PCP: Delano Epperson MD Status: REG ER Study: Gallbladder Date of Exam: 04/26/18 Exam# [id number] Ordering Dr: Shavon Parker MD STUDY: ABDOMINAL [...] CC: MD Miguel Parker; Delano Epperson MD Infrastructure Developer: Signed CBC W/DIFF, AUTOMATED Collected: 04/26/2018 Status: C Source: [place] 1:43 PM [facility] REPOSITORY TYPE CODE TESTS RESULT OUT OF [...] 04/27/18 1503 PATH REV previously reported as: September Performed By: #### L100.0100 #### [facility] [address] [place], [address] BASIC METABOLIC Collected: 04/26/2018 Status: F Source: [place] PROFILE ([facility]) 1:43 PM [facility] REPOSITORY TYPE CODE TESTS RESULT OUT OF [...] By: #### L500.2500, L500.3400, L501.2450, L501.4010 #### [facility] [address] [place], [address] LIVER PROFILE Collected: 04/26/2018 Status: F Source: [place] 1:43 PM [facility] REPOSITORY TYPE CODE TESTS RESULT OUT OF [...] By: #### L500.2500, L500.3400, L501.2450, L501.4010 #### [facility] [address] [place], [address] LIPASE Collected: 04/26/2018 Status: F Source: [place] 1:43 PM [facility] REPOSITORY TYPE CODE TESTS RESULT OUT OF REFERENCE UNITS RANGE LAB L501.2450 73-393 U/L Low LIPASE 45 Performed By: #### L500.2500, L500.3400, L501.2450, L501.4010 #### [facility] [address] [place], [address] TROPONIN-I Collected: 04/26/2018 Status: F Source: [place] 1:43 PM [facility] REPOSITORY TYPE CODE TESTS RESULT OUT OF RANGE REFERENCE UNITS LAB L501.4010 <0.045 ng/mL Normal < 0.015 TROPONIN-I Result Comment: TROPONIN-I EXPECTED VALUES <0.045 Negative 0.045 - 0.590 Consistent with Cardiac Damage > OR = 0.600 Critical Value Not every elevated troponin is indicative of OR. These values should be used with clinical judgement in examining the patient's clinical picture for diagnosis. To establish a diagnosis of OR versus myocardial injury, there must be a demonstrated rise and/or fall in the troponin values, in addition to ischemic symptoms, EKG changes, new regional wall motion abnormality, and/or angiographical evidence. PLEASE NOTE: REFERENCE RANGES EDITED 17 Performed By: #### L500.2500, L500.3400, L501.2450, L501.4010 #### [facility] [address] [place], [address] ABDOMEN/PELVIS WITHOUT Observed: 04/26/2018 Status: F Source: [place] CONT 1:30 PM [facility] REPOSITORY [facility] Imaging Services [address] [place] [address] Abdomen/Pelvis without Cont MR#: [id number] Acct: [id number] Name: LANNY OLIVIER Rep #: [id number] : 1940 M 77 From: You Erwin MD PCP: Delano Epperson MD Status: REG ER Study: Abdomen/Pelvis without Cont Date of Exam: 04/26/18 Exam# [id number] Ordering Dr: Shavon Parker MD STUDY: CT [...] You Erwin MD at 14:46 EST Tel [phone], Service support , CC: MD Miguel Parker; Delano Epperson MD Infrastructure Developer: Signed HOSP Observed: 04/26/2018 Status: COMPLETED Source: [facility] 12:00 AM CLINIC OTHER CAMPUS REPOSITORY Patient:Lanny Olivier MRN: <[id number]> Height:5' 10.5(1.791 m) Weight:195 lb (88.451 kg) [...] XR) 500 mg 24 hr tablet Insulin Powers, Disposable, (BD ULTRA-FINE MIAN PEN NEEDLES) 32 [...] and older) (PF) (FLUZONE HIGH DOSE ) dextrose 40 % 15 g glucagon 1 [...] visit, subsequent [Z00.00] Acute cholecystitis [K81.0] Allergies: Hakpbfz-Jyr-Llw Reductase Inhibitors Zetia [Ezetimibe] Date Verified: 04/27/18 [...] old male presenting as a transfer from [place] ED today with RUQ pain x 2 [...] APPENDECTOMY 1966 - COLONOSCOP W/ OR W/O [facility] SPEC 10/15/06 repeat due 2016 - FECAL OCCULT BLOOD TEST 03/14/2016 Neg - REMV CATARACT EXTRACAP,INSERT LENS 2011 bilateral - REPAIR ING HERNIA,5+Y/O,REDUCIBL 1981 Hernia repair, inguinal: right Allergies: Xqybobe-Scc-Knm Reductase Inhibitors; Zetia [Ezetimibe] Current Facility-Administered Medications: [...] wall measures 9 mm with negative sonographic Brwon's sign with pericholecystic fluid. Multiple gallstones and [...] April 26, 2018 Previous Version Neva Moreland APRN.BOOKKEEPER RECEPTIONIST 04/27/2018 7:01 AM Signed Emergency General Surgery [...] kg/m? O2 Therapy: Room Air IANDO: Date 04/26/18 0700 - 04/27/18 0659 04/27/18 0700 - 04/28/18 0659 Shift 8736-3046 9577-2221 0879-2260 24 Hour Total 9052-0101 6413-7957 9948-7537 24 Hour Total I N T A [...] - For lap evelia today SIGNATURE: Neva Moreland, DUPLICATING MACHINE SERVICER.BOOKKEEPER RECEPTIONIST PATIENT NAME: Lanny Olivier DATE: April 27, 2018 TIME: 6:14 AM Emergency General Surgery Service Pager: For questions or concerns Mon-Fri 6a-5p please page [phone]. After 5pm and on Weekends and Holidays, please page [phone]. Paula Cox, RN, RN 04/27/2018 6:59 AM Signed Nursing Progress Note Patient Name: Lanny Olivier Patient Location: [address]/[id number]-* RN left message with patient's , Clarisa [...] APPENDECTOMY 1966 - COLONOSCOP W/ OR W/O [facility] SPEC 10/15/06 repeat due 2016 [...] - Smokeless tobacco: Never Used Comment: QUIT 2004 - Alcohol use No No current facility-administered [...] by mouth twice daily before meals. Insulin Powers, Disposable, (BD ULTRA-FINE MIAN PEN NEEDLES) 32 [...] mEq INTRAVENOUS q 2 HR Neva Ramírez (Diesel Fitter Mechanic) Aniceto Last Rate: 50 mL/hr at 04/27/18 [...] at 04/27/18 0552 3.375 g at 04/27/18 0552 Allergies: ALLERGIES Allergen Reactions - Reqsjxe-Raa-Xsa Red* Intolerance myalgia - Zetia [Ezetimibe] Myalgia [...] April 27, 2018 TIME: 9:16 AM CSN: [id number] Progress Notes ([facility]): Darya Dickey, RN, RN 04/26/2018 11:53 [...] janie. PROGRESS Observed: 12/07/2017 Status: COMPLETED Source: [facility] 2:34 PM [facility] REPOSITORY O ID: [id number] Author: Delano Epperson Service: (none) Author Type: [...] APPENDECTOMY 1966 - COLONOSCOP W/ OR W/O [facility] SPEC 10/15/06 repeat due 2016 - FECAL OCCULT BLOOD TEST 03/14/2016 Neg - REMV CATARACT EXTRACAP,INSERT LENS 2011 bilateral - REPAIR ING HERNIA,5+Y/O,REDUCIBL 1981 Hernia repair, inguinal: right Hvxplxz-Yku-Xpv Reductase Inhibitors; Zetia [Ezetimibe] Medications reviewed: Yes FAMILY HISTORY Problem Relation Age of Onset - Stroke Father age 77 - Cancer Mother age 76 cancer stomach - Diabetes Brother age 62 - Coronary Artery Disease Brother age 42 SOCIAL HISTORY: Social History Marital status: Spouse name: Ronna Years of education: Number of children: 4 Occupational History 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 Social History Main Topics Smoking status: Former Smoker Packs/day: 1.00 Years: 40.00 Types: Cigarettes Smokeless tobacco: Never Used Comment: QUIT 2003 Alcohol use: No Drug use: No Sexual activity: Yes Partners with: Female Other Topics 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: no foreign BLOOD TRANSFUSIONS No CAFFEINE Yes Comment:coffee 3 cups/d OCCUPATIONAL EXPOSURE Yes 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, 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 HOBBY HAZARD No SLEEP CONCERN No STRESS CONCERN No WEIGHT CONCERN No DIET No BACK CARE No EXERCISE Yes Comment:farms: [employer] BIKE HELMET No SEAT BELT No SELF [...] APPENDECTOMY 1966 - COLONOSCOP W/ OR W/O [facility] SPEC 10/15/06 repeat due 2016 - FECAL OCCULT BLOOD TEST 03/14/2016 Neg - REMV CATARACT EXTRACAP,INSERT LENS 2011 bilateral - REPAIR ING HERNIA,5+Y/O,REDUCIBL 1980 Hernia repair, inguinal: right Family History FAMILY HISTORY Problem Relation Age of Onset - Stroke Father age 77 - Cancer Mother age 76 cancer stomach - Diabetes Brother age 62 - Coronary Artery Disease Brother age 42 Patient Allergies ALLERGIES Allergen Reactions - Kvyvtbp-Dbg-Gzv Red* Intolerance myalgia - Zetia [Ezetimibe] Myalgia Current Medications Current Outpatient Prescriptions on File Prior to Visit: metFORMIN ER (GLUCOPHAGE XR) 500 mg 24 hr tablet Take 2 tablets by mouth twice daily before meals. lisinopril-hydrochlorothiazide (PRINZIDE, ZESTORETIC) 20-25 mg per tablet Take 1 tablet by mouth once daily. amLODIPine (NORVASC) 2.5 mg tablet Take 1 tablet by mouth once daily. 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 HOBBY HAZARD No SLEEP CONCERN No STRESS CONCERN No WEIGHT CONCERN No DIET No BACK CARE No EXERCISE Yes Comment:farms: AxioMx BIKE HELMET No SEAT BELT No SELF [...] MD CNOV Observed: 12/07/2017 Status: COMPLETED Source: [facility] 2:00 PM [facility] REPOSITORY [facility] LANNY OLIVIER ([id number]) 1940 M Date Time Provider Department 12/07/17 2:00 PM DELANO EPPERSON During your visit today, we recorded the [...] APPENDECTOMY 1966 - COLONOSCOP W/ OR W/O [facility] SPEC 10/15/06 repeat due 2016 - FECAL OCCULT BLOOD TEST 03/14/2016 Neg - REMV CATARACT EXTRACAP,INSERT LENS 2011 bilateral - REPAIR ING HERNIA,5+Y/O,REDUCIBL 1981 Hernia repair, inguinal: right Aojddhp-Grn-Cym Reductase Inhibitors; Zetia [Ezetimibe] Medications reviewed: Yes FAMILY HISTORY Problem Relation Age of Onset - Stroke Father age 77 - Cancer Mother age 76 cancer stomach - Diabetes Brother age 62 - Coronary Artery Disease Brother age 42 SOCIAL HISTORY: Social History Marital status: Spouse name: Ronna Years of education: Number of children: 4 Occupational History 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* [employer] Social History Main Topics Smoking status: Former Smoker Packs/day: 1.00 Years: 40.00 Types: Cigarettes Smokeless tobacco: Never Used Comment: QUIT 2003 Alcohol use: No Drug use: No Sexual activity: Yes Partners with: Female Other Topics 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 [phone]: no foreign BLOOD TRANSFUSIONS No CAFFEINE Yes Comment:coffee 3 cups/d OCCUPATIONAL EXPOSURE Yes 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 lisinopril-hydrochlorothiazide (PRINZIDE, ZESTORETIC) 20-25 mg per tablet Take 1 tablet by mouth once daily. amLODIPine (NORVASC) 2.5 mg tablet Take 1 tablet by mouth once daily. Insulin Powers, Disposable, (BD ULTRA-FINE MIAN PEN NEEDLES) 32 gauge x 5/32 ndle Use one needle for each dose. 4/day. insulin aspart (NOVOLOG FLEXPEN) 100 unit/mL inpn Inject subcutaneously with first bite of food, 6 units w/ breakfast, lunch and dinner Insulin Syringe-Needle U-100 (BD INSULIN SYRINGE ULTRA-FINE) 0.5 mL 31 gauge x 5/16 syrg Use daily as directed Lancets (ONE TOUCH ULTRASOFT LANCETS) [facility] lancets Use as directed blood sugar diagnostic(ONE TOUCH ULTRA TEST STRIPS) Test blood sugar 3-4 times per day. Dx: 250.00. Insulin Dep: Yes No current facility-administered medications on file prior to visit. 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 Referring Provider: DELANO EPPERSON [[id number]] Allergies As of Date: 12/07/2017 Noted Allergy Reaction LJOEHEG-JOR-BHO REDUCTASE INHIBIT*11/16/2014 5 - Intolerance Comments: myalgia [...] 1 CONSULT TO ENT [9008] Order #: [id number]: 1 CONSULT TO GASTROENTEROLOGY [1914] Order #: [id number]: 1 aspirin, enteric coated (ASPIRIN, ENTERIC COATED) 81 mg EC tabletTake 1 tablet by mouth once daily.Disp: Rfl: COMP METABOLIC PANEL [SQCMP] Order #: [id number] FUTURE HGB A1C [OWAUQ6J] Order #: [id number] FUTURE LIPID PANEL BASIC [SQLIPB] Order #: [id number] FUTURE URINALYSIS WITH MICROSCOPIC [SQUAWMIC] Order #: [id number] FUTURE ALBUMIN/CREAT RATIO RND UR [SQUACR] Order #: [id number] FUTURE CBC + DIFF [SQCBCDIF] Order #: [id number] FUTURE Prescriptions as of 12/07/2017 Sig: INSULIN [...] daily as directed LANCETS Use as directed [employer] ULTRA TEST STRIPS Test blood sugar 3-4 [...] PANEL, BASIC Collected: 11/26/2017 Status: F Source: [facility] 8:31 AM CLINIC MAIN CAMPUS REPOSITORY TYPE [...] Desk Reference: National Heart, Lung, and Blood [place]. National Institutes of Health. 2001: NIH Publication No. 01-3305. 2. An International Atherosclerosis Society position paper: global recommendations for the management of dyslipidemia: executive summary, Atherosclerosis. 2014: 232(2):410-413. Performed By: #### LIPB, HBA1C #### [facility] [address] [place] [place], [place] [address] HEMOGLOBIN A1C Collected: 11/26/2017 Status: F Source: [place] 8:31 AM [facility] REPOSITORY TYPE CODE TESTS RESULT OUT OF REFERENCE UNITS RANGE LAB HGBA1C 4.3-5.6 % High Hemoglobin A1c 6.7 LAB HBA0 mg/dL Est. Average Glucose 146 Result Comment: eAG: (Estimated average glucose) is a calculated value from HgbA1c and is enrollment representative of the average blood glucose level in the last 2-3 month period. Performed By: #### LIPB, HBA1C #### [facility] [address] [place], [place] [address] CONSULTATION Observed: 07/02/2017 Status: F Source: [place] 8:30 AM [facility] REPOSITORY [facility] Medical Records Department [address] [place] [address] Consultation 06/26/17 1422 MR#: [id number] Acct: [id number] Name: LANNY OLIVIER Rep #: [id number] : 1940 76 From: Fox Iqbal MD PCP: Delano Epperson MD Status: DIS IN Y Location: MS3 BU861-8 Problem List (1) Mental status change Status: [...] patient. Code Visit Inpatient E AND M: 29238 Init Hosp L3 07/02/17 0830 <Electronically signed by Fox Iqbal MD> Date Fox Iqbal MD Cosigner Signature (if applicable): Date CC: Manuel Iqbal MD; Delano Epperson MD; Beto Valentino MD Signed COMPREHENSIVE METABOLIC Collected: 06/30/2017 Status: F Source: [facility] PANEL 4:53 AM [facility] REPOSITORY TYPE CODE TESTS RESULT OUT OF [...] used with caution. LAB eGFRB ml/min/1.73sq.m eGFR, -Panamanian >=60 Result Comment: GFR Calc LAB CALCM [...] Unless otherwise noted, all testing performed by [place] [address] [place], [place] [address] CLIA: [id number] Lab Scientist: Jez Roy M.D. LIPID PANEL Collected: 06/30/2017 Status: F Source: [facility] 4:53 AM [facility] REPOSITORY TYPE CODE TESTS RESULT OUT OF [...] Unless otherwise noted, all testing performed by [place] [address] CLIA: [id number] Lab Scientist: Jez Roy M.D. HEMOGLOBIN A1C Collected: 06/30/2017 Status: F Source: [facility] 4:53 AM [facility] TYPE CODE TESTS RESULT OUT OF REFERENCE UNITS RANGE LAB HBA1C 4.1-6.5 % High Hemoglobin A1C 6.6 Performed By: #### HBA1C, LIPID, CMET #### Unless otherwise noted, all testing performed by [place] [address] CLIA: [id number] Lab Scientist: Jez Roy M.D. DISCHARGE SUMMARY Observed: 06/29/2017 Status: F Source: [place] 5:04 PM [facility] REPOSITORY [facility] Medical Records Department [address] [facility] [place] [address] Discharge Summary 06/29/17 1553 MR#: [id number] Acct: [id number] Name: LANNY OLIVIER Rep #: [id number] : 1940 76 From: Bran Acevedo MD PCP: Delano Epperson MD Status: ADM IN Y Location: MS3 IZ106-5 Discharge Date and Diagnosis - Problem List [...] and underwent physical therapy and they recommended [facility] facility. The patient was discharged to a [facility] home in a stable condition. Physical exam [...] Epperson MD [Primary Care Provider] - Disposition: Long Term facility Patient Condition:: Fair Meaningful Use Info Meaningful Use Diagnoses (Choose all that apply): None applicable Code Visit Inpatient E AND M: 46055 Disch Hosp 06/29/17 1704 <Electronically signed by Bran Acevedo MD> Date Bran Acevedo MD Cosigner Signature (if applicable): Date CC: Delano Epperson MD; Bran Acevedo MD Signed BEDSIDE GLUCOSE Collected: 06/29/2017 Status: F Source: [place] 4:14 PM [facility] REPOSITORY TYPE CODE TESTS RESULT OUT OF REFERENCE UNITS RANGE LAB L501.080 70-110 mg/dL High BEDSIDE GLU 199 Result Comment: MANAGEMENT OF PATIENT CARE PER NURSING PROTOCOL Performed By: #### L501.080 #### [facility] Point of Care [address] [place], [place] [address] [address] TRANSFER TO EXTENDED Observed: 06/29/2017 Status: F Source: [facility] 3:54 PM [facility] REPOSITORY [facility] Medical Records Department [address] [facility] [place] [address] Transfer to Extended Care MR#: [id number] Acct: [id number] Name: OLIVIERLANNY J Rep #: [id number] : 1940 76 From: Bran Acevedo MD PCP: Delano Epperson MD Status: ADM IN OLIVIERLANNY (Patient) (Health Ins. Claim No.) (Day of Discharge to Facility) Certification of patient admission REQUIRED AT TIME OF ADMISSION. I CERTIFY THAT POST-HOSPITAL ECF SERVICES ARE REQUIRED TO BE GIVEN ON AN IN-PATIENT BASIS BECAUSE OF THE ABOVE NAMED PATIENT'S NEED FOR CARE HOME CARE ON A CONTINUING BASIS FOR THE CONDITION(S) FOR WHICH HE/SHE WAS RECEIVING IN-PATIENT HOSPITAL SERVICES PRIOR TO HIS/HER TRANSFER TO THE [facility]. 06/29/17 1554 <Electronically signed by Bran Acevedo [...] LEAD ELECTROCARDIOGRAM Observed: 06/29/2017 Status: F Source: E[place] 3:50 PM [facility] REPOSITORY [facility] [address] [place] [address] 12 Lead EKG 06/25/17 1304 MR#: [id number] Acct: [id number] Name: LANNY OLIVIER Rep #: [id number] : 1940 76 From: Fabián Sales MD Attending Dr: Curtis FINNEGAN,Bran Status: ADM IN Ordering Dr: Shavon Parker MD Date: 06/25/17 Location: MS3 Sex: M C Admitted: 06/25/17 Test Reason [...] ECG Confirmed by LEROY FINNEGAN, FABIÁN ([id number]), newspaper photo editor KOTA WANG ([id number]) on 06/29/2017 3:50:29 PM Referred By: ОЛЬГА Confirmed By:FABIÁN SALES MD 06/29/17 1550 Date Fabián Sales MD CC: Delano Epperson MD Signed BEDSIDE GLUCOSE Collected: 06/29/2017 Status: F Source: EFF[place] 11:14 AM [facility] REPOSITORY TYPE CODE TESTS RESULT OUT OF REFERENCE UNITS RANGE LAB L501.080 70-110 mg/dL High BEDSIDE GLU 233 Result Comment: MANAGEMENT OF PATIENT CARE PER NURSING PROTOCOL Performed By: #### L501.080 #### [facility] Point of Care [address] [place], [place] [address] BEDSIDE GLUCOSE Collected: 06/29/2017 Status: F Source: EFF[place] 6:37 AM [facility] REPOSITORY TYPE CODE TESTS RESULT OUT OF REFERENCE UNITS RANGE LAB L501.080 70-110 mg/dL High BEDSIDE GLU 181 Result Comment: MANAGEMENT OF PATIENT CARE PER NURSING PROTOCOL Performed By: #### L501.080 #### [place] [facility] Point of Care [address] [place] [address] CBC-COMPLETE BLOOD CNT Collected: 06/29/2017 Status: F Source: EFFIE NO DIFF 5:00 AM [facility] REPOSITORY TYPE CODE TESTS RESULT OUT OF [...] MPV 10.7 Performed By: #### L100.0500 #### [facility] [address] [place], [address] BASIC METABOLIC Collected: 06/29/2017 Status: F Source: [place] PROFILE (BMP) 5:00 AM [facility] REPOSITORY TYPE CODE TESTS RESULT OUT OF [...] GAP 8 Performed By: #### L500.2500 #### [facility] [address] [place], [address] BEDSIDE GLUCOSE Collected: 06/28/2017 Status: F Source: EFFIE 8:51 PM [facility] REPOS[facility]ORY TYPE CODE TESTS RESULT OUT OF REFERENCE UNITS RANGE LAB L501.080 70-110 mg/dL High BEDSIDE GLU 171 Result Comment: MANAGEMENT OF PATIENT CARE PER NURSING PROTOCOL Performed By: #### L501.080 #### [facility] Point of Care [address] [place] [address] BEDSIDE GLUCOSE Collected: 06/28/2017 Status: F Source: EFFIE 5:02 PM [facility] REPOS[facility]ORY TYPE CODE TESTS RESULT OUT OF REFERENCE UNITS RANGE LAB L501.080 70-110 mg/dL High BEDSIDE GLU 151 Result Comment: MANAGEMENT OF PATIENT CARE PER NURSING PROTOCOL Performed By: #### L501.080 #### [facility] Point of Care [address] [place] [address] BEDSIDE GLUCOSE Collected: 06/28/2017 Status: F Source: EFF[place] 12:25 PM [facility] RE[facility] TYPE CODE TESTS RESULT OUT OF REFERENCE UNITS RANGE LAB L501.080 70-110 mg/dL High BEDSIDE GLU 164 Result Comment: MANAGEMENT OF PATIENT CARE PER NURSING PROTOCOL Performed By: #### L501.080 #### [facility] Point of Care [address] [place] [address] BEDSIDE GLUCOSE Collected: 06/28/2017 Status: F Source: EFFIE 6:23 AM [facility] TYPE CODE TESTS RESULT OUT OF RANGE REFERENCE UNITS LAB L501.080 70-110 mg/dL Normal BEDSIDE GLU 88 Result Comment: MANAGEMENT OF PATIENT CARE PER NURSING PROTOCOL Performed By: #### L501.080 #### [facility] Point of Care [address] [place], [place] [address] CBC-COMPLETE BLOOD CNT Collected: 06/28/2017 Status: F Source: EFF[place] NO DIFF 5:35 AM [facility] REPOS[facility]ORY TYPE CODE TESTS RESULT OUT OF [...] MPV 11.2 Performed By: #### L100.0500 #### [facility] [address] [place], [place], [address] BASIC METABOLIC Collected: 06/28/2017 Status: F Source: E[place] PROFILE (BMP) 5:35 AM [facility] REPOS[facility]ORY TYPE CODE TESTS RESULT OUT OF [...] GAP 9 Performed By: #### L500.2500 #### [facility] [address] [place], [address] BEDSIDE GLUCOSE Collected: 06/27/2017 Status: F Source: EFFIE 10:01 PM [facility] TYPE CODE TESTS RESULT OUT OF REFERENCE UNITS RANGE LAB L501.080 70-110 mg/dL High BEDSIDE GLU 144 Result Comment: MANAGEMENT OF PATIENT CARE PER NURSING PROTOCOL Performed By: #### L501.080 #### [facility] Point of Care [address] [place] [address] BEDSIDE GLUCOSE Collected: 06/27/2017 Status: F Source: EFF[place] 4:23 PM [facility]ORY TYPE CODE TESTS RESULT OUT OF REFERENCE UNITS RANGE LAB L501.080 70-110 mg/dL High BEDSIDE GLU 141 Result Comment: MANAGEMENT OF PATIENT CARE PER NURSING PROTOCOL Performed By: #### L501.080 #### [facility] Point of Care [address] [place] [address] BEDSIDE GLUCOSE Collected: 06/27/2017 Status: F Source: EFF[place] 11:50 AM [facility] RE[facility]ORY TYPE CODE TESTS RESULT OUT OF REFERENCE UNITS RANGE LAB L501.080 70-110 mg/dL High BEDSIDE GLU 124 Result Comment: MANAGEMENT OF PATIENT CARE PER NURSING PROTOCOL Performed By: #### L501.080 #### [facility] Point of Care [address] [place] [address] CBC-COMPLETE BLOOD CNT Collected: 06/27/2017 Status: F Source: E[place] NO DIFF 9:00 AM [facility] REPOS[facility]ORY TYPE CODE TESTS RESULT OUT OF [...] MPV 10.6 Performed By: #### L100.0500 #### [facility] [address] [place], [address] BASIC METABOLIC Collected: 06/27/2017 Status: F Source: O[place] PROFILE (BMP) 9:00 AM [facility] REPOSITORY TYPE CODE TESTS RESULT OUT OF [...] GAP 8 Performed By: #### L500.2500 #### [facility] [address] [facility] [place], [address] BEDSIDE GLUCOSE Collected: 06/27/2017 Status: F Source: [place] 6:45 AM [facility] TYPE CODE TESTS RESULT OUT OF REFERENCE UNITS RANGE LAB L501.080 70-110 mg/dL High BEDSIDE GLU 139 Result Comment: MANAGEMENT OF PATIENT CARE PER NURSING PROTOCOL Performed By: #### L501.080 #### [facility] Point of Care [address] [facility] [place] [address] BEDSIDE GLUCOSE Collected: 06/26/2017 Status: F Source: [place] 10:24 PM [facility] RE[facility]ORY TYPE CODE TESTS RESULT OUT OF REFERENCE UNITS RANGE LAB L501.080 70-110 mg/dL High BEDSIDE GLU 206 Result Comment: MANAGEMENT OF PATIENT CARE PER NURSING PROTOCOL Performed By: #### L501.080 #### [facility] Point of Care [address] [facility] [place] [address] CONSULTATION Observed: 06/26/2017 Status: F Source: [place] 4:35 PM [facility] REPOSITORY [facility] Medical Records Department [address] [place] [address] Consultation 06/26/17 1623 MR#: [id number] Acct: [id number] Name: LANNY OLIVIER Rep #: [id number] : 1940 76 From: Beto Valentino MD PCP: Delano Epperson MD Status: ADM IN [place] [facility] [id number] Problem List (1) Meningitis Status: Acute Reason [...] you, will follow, d/w primary team. 06/26/17 2886 <Electronically signed by Beto Valentino MD> Date Beto Valentino MD Cosigner Signature (if applicable): Date CC: Manuel Iqbal MD; Delano Epperson MD; Beto Valentino MD Signed ECHOCARDIOGRAM COMPLETE Observed: 06/26/2017 Status: F Source: O[place] 4:23 PM [facility] REPOSITORY [facility] Cardi[facility] Services [address] [place] [address] Echo Complete 06/26/17 1319 MR#: [id number] Acct: [id number] Name: LANNY OLIVIER Rep #: [id number] : 1940 76 From: Fabián Sales MD Attending Dr: Odalys Beltran Status: ADM IN Ordering Dr: Diamante Shane Date: 06/25/17 [place] [facility] Sex: M C Admitted: 06/25/17 Reason For [...] 06/26/17 1623 Date Fabián Sales MD CC: NIKE ATHLETE-C Diamante Shane; Delano Epperson MD Date Dictated: 06/26/17 1319 Date Transcribed: 06/26/17 1623 Infrastructure Developer: Signed BEDSIDE GLUCOSE Collected: 06/26/2017 Status: F Source: EFF[place] 4:17 PM [facility] REPOS[facility]ORY TYPE CODE TESTS RESULT OUT OF REFERENCE UNITS RANGE LAB L501.080 70-110 mg/dL High BEDSIDE GLU 231 Result Comment: MANAGEMENT OF PATIENT CARE PER NURSING PROTOCOL Performed By: #### L501.080 #### [place] [facility] Point of Care [address] [place] [address] BEDSIDE GLUCOSE Collected: 06/26/2017 Status: F Source: FEFI[place] 11:56 AM [facility] REPOSITORY TYPE CODE TESTS RESULT OUT OF REFERENCE UNITS RANGE LAB L501.080 70-110 mg/dL High BEDSIDE GLU 194 Result Comment: MANAGEMENT OF PATIENT CARE PER NURSING PROTOCOL Performed By: #### L501.080 #### [facility] Point of Care [address] [place] [address] SPINAL FLUID CELL Collected: 06/26/2017 Status: C Source: EFFIE COUNT+DIFF 11:39 AM [facility] REPOSITORY Order Comment: Specimen Source? CSF TYPE [...] Chris Ann M.D. 06/29/17 AMENDED REPORT 06/29/17 1455 PATH REV previously reported as: May follow [...] Normal RBC,CSF Performed By: #### L200.0100 #### [facility] [address] [place], [place], [address] GLUCOSE SPINAL FLUID Collected: 06/26/2017 Status: F Source: EFFIE 11:39 AM [facility] REPOSITORY Order Comment: Specimen Source? CSF TYPE CODE TESTS RESULT OUT OF REFERENCE UNITS RANGE LAB L501.0400 40-75 mg/dL High GLU SPINAL 91 FLD Performed By: #### L501.0400, L501.1600 #### [facility] [address] [place], [address] PROTEIN SPINAL FLUID Collected: 06/26/2017 Status: F Source: O[place] 11:39 AM [facility] REPOSITORY Order Comment: Specimen Source? CSF TYPE CODE TESTS RESULT OUT OF REFERENCE UNITS RANGE LAB L501.1600 15.0-45.0 mg/dL High PROTEIN CSF 102.0 Performed By: #### L501.0400, L501.1600 #### [facility] [address] [place], [address] Observed: 06/26/2017 Status: F Source: [place] CULTURE, CSF 11:39 AM [facility] REPOSITORY Gram Stain Centrifuged Specimen? Culture performed on centrifuged specimen Gram Stain 1+ White Blood Cells No organisms seen CSF Culture Culture exhibits no growth. Performed By: #### M100.0700 #### [facility] [address] [place], [address] CYTOLOGY, BODY FLUID / Collected: 06/26/2017 Status: F Source: O[place] CSF 11:39 AM [facility] REPOSITORY TYPE CODE TESTS RESULT OUT OF RANGE REFERENCE UNITS LAB L350.1000 SEE Normal PATHOLOGY CYTOLOGY,BF REPORT /CSF Result Comment: Specimen submitted to Anatomical Pathology Department for testing. Performed By: #### L350.1000 #### [facility] [address] [place], [address] CRYPTOCOCCUS ANTIGEN CSF Collected: 06/26/2017 Status: F Source: O[place] 11:39 AM [facility] REPOSITORY TYPE CODE TESTS RESULT OUT OF RANGE REFERENCE UNITS LAB L800.1960 Negative Normal CRYP Negative AG CSF Performed By: #### L800.1960, L3400.1525, L3400.1550, L3400.1645 #### [facility] (refer to report for specific site) refer to report for address and phone number CMV BY PCR Collected: 06/26/2017 Status: F Source: O[place] 11:39 AM [facility] REPOS[facility]ORY TYPE CODE TESTS RESULT OUT OF RANGE REFERENCE UNITS LAB L3400.1525 Negative Normal CMV PCR Negative [id number] Result Comment: No Cytomegalovirus DNA Detected. This test was developed and its performance characteristics determined by [facility]. It has not been cleared or approved by the Food and Drug Administration. The FDA has determined that such clearance or approval is not necessary. Performed at: [address] [id number] Direct Casting Operator: Tenzin Mueller MD, Phone: [phone] Performed By: #### L800.1960, L3400.1525, L3400.1550, L3400.1645 #### [facility] (refer to report for specific site) refer to report for address and phone number ENTEROVIRUS BY PCR Collected: 06/26/2017 Status: F Source: [place] 11:39 AM [facility] REPOS[facility]ORY TYPE CODE TESTS RESULT OUT OF REFERENCE UNITS RANGE LAB L3400.1550 Negative ENTEROVIRUS Normal PCR Negative Result Comment: No Enteroviral RNA Detected. This test was developed and its performance characteristics determined by [facility]. It has not been cleared or approved by the Food and Drug Administration. The FDA has determined that such clearance or approval is not necessary. Performed By: #### L800.1960, L3400.1525, L3400.1550, L3400.1645 #### [facility] (refer to report for specific site) refer to report for address and phone number HSV 1/2 BY PCR Collected: 06/26/2017 Status: F Source: EFF[place] 11:39 AM [facility] REPOSITORY TYPE CODE TESTS RESULT OUT OF RANGE REFERENCE UNITS LAB L3400.1650 Negative Normal HSV 1 Negative BY PCR LAB L3400.1655 Negative Normal HSV 2 Negative BY PCR Result Comment: This test was developed and its performance characteristics determined by [facility]. It has not been cleared or approved [...] number Observed: 06/26/2017 Status: F Source: EFF[place] CULTURE, FUNGUS 8482 11:39 AM [facility] REPOSITORY Cu,[id number] TESTING PERFORMED AT [facility]. ORIGINAL REPORT ON FILE IN LAB CONTAINS ADDITIONAL TEST SITE INFORMATION. CUF No yeast or mold isolated after 4 weeks. Performed By: #### M600.2000 #### [facility] [address] [place], [place], [address] BEDSIDE GLUCOSE Collected: 06/26/2017 Status: F Source: ODA[place]H 6:50 AM [facility] REPOSITORY TYPE CODE TESTS RESULT OUT OF REFERENCE UNITS RANGE LAB L501.080 70-110 mg/dL High BEDSIDE GLU 164 Result Comment: MANAGEMENT OF PATIENT CARE PER NURSING PROTOCOL Performed By: #### L501.080 #### [facility] Point of Care [address] [place], [place] [address] CBC W/DIFF, AUTOMATED Collected: 06/26/2017 Status: F Source: O[place] 5:20 AM [facility] REPOSITORY TYPE CODE TESTS RESULT OUT OF [...] Lymph 0.68 Performed By: #### L100.0100 #### [facility] [address] [place], [address] BASIC METABOLIC Collected: 06/26/2017 Status: F Source: [place] PROFILE (BMP) 5:20 AM [facility] REPOSITORY TYPE CODE TESTS RESULT OUT OF [...] GAP 10 Performed By: #### L500.2500 #### [facility] [address] [facility] [place], [address] FLUORO GUIDED LUMBAR Observed: 06/26/2017 Status: F Source: [place] PUNCTURE 12:00 AM [facility] REPOSITORY [facility] Imaging Services [address] [facility] [place] [address] Fluoro Guided Lumbar Puncture MR#: [id number] Acct: [id number] Name: LANNY OLIVIER Rep #: [id number] : 1940 M 76 From: You Erwin MD PCP: Delano Epperson MD Status: ADM IN Study: Fluoro Guided Lumbar Puncture Date of Exam: 06/26/17 Exam# [id number] Ordering Dr: Tone Beltran DO PROCEDURE: Fluoroscopic [...] You Erwin MD at 13:03 EST Tel [phone], Service support , CC: Odalys Beltran; Delano Epperson MD Infrastructure Developer: Signed FLUID/WASHING Observed: 06/26/2017 Status: F Source: O[place] 12:00 AM [facility] REPOS[facility] Patient: LANNY OLIVIER : 1940 (76/M) Acct Num: [id number] Phys: Curtis FINNEGAN,[facility] Unit Num: [id number] Loc: MS3 [id number] Specimen: [id number] Received: 06/26/17 - 1139 Spec Type: Fluid TISSUES TISSUES: Cerebrospinal Fluid COMMENT Clinical correlation and appropriate follow up are necessary. CYTOLOGY GROSS Received is 2 ml of clear, colorless fluid labeled with the patient's name and and designated per the requisition as CSF. Submitted for cytology preparation. / 06/26/17 TC:2 CPT: 81897 CYTOLOGY STUDY Slides are reviewed. The specimen shows increased number of inflammatory cells consisting predominantly of lymphocytes and a few monocytes. DIAGNOSIS CYTOLOGY Cerebrospinal fluid for cytology (cytospin): Increased number of inflammatory cells noted. See cytology study and comment. SJ:yaa 06/29/17 HEADER OPERATION: Not noted PRE-OP DIAGNOSIS: Flu-like symptoms TISSUE SUBMITTED: Cerebrospinal fluid for cytology Signed Chris Ann 06/29/17 <signature on file> Performed By: #### PFLU #### [facility] [address] [place] [address] [place], [address] BEDSIDE GLUCOSE Collected: 06/25/2017 Status: F Source: EFFIE 10:49 PM [facility] REPOS[facility]ORY TYPE CODE TESTS RESULT OUT OF REFERENCE UNITS RANGE LAB L501.080 70-110 mg/dL High BEDSIDE GLU 201 Result Comment: MANAGEMENT OF PATIENT CARE PER NURSING PROTOCOL Performed By: #### L501.080 #### [facility] Point of Care [address] [place] [address] [place], [place] [address] LACTIC ACID Collected: 06/25/2017 Status: F Source: EFF[place] 8:49 PM [facility] RE[facility]ITORY Order Comment: Yes/No query for Sepsis Lactate Rule Y TYPE CODE TESTS RESULT OUT OF RANGE REFERENCE UNITS LAB L503.6005 0.4-2.0 mmol/L Normal LACTIC ACID 0.9 Performed By: #### L503.6005 #### [facility] [address] [facility] [place], [address] Observed: 06/25/2017 Status: F Source: E[place] CULTURE, BLOOD (WB) 8:49 PM [facility] REPOSITORY Has pt arrived? Y BC No growth in 5 days. Performed By: #### M200.1000 #### [facility] [address] [facility] [address] [place], [place], [address] HISTORY AND PHYSICAL Observed: 06/25/2017 Status: F Source: E[place] EXAM 8:00 PM [facility] REPOSITORY [facility] Medical Records Department [address] [place], [place] [address] [address] History and Physical 06/25/17 1540 MR#: [id number] Acct: [id number] Name: LANNY OLIVIER Rep #: [id number] : 1940 76 From: Diamante JOHNSON PCP: Delano Epperson MD Status: ADM IN Y [place] [facility] [id number] ADDENDUM by Odalys Beltran on 06/25/17 at [...] all their questions MRI of the brain ayesha 06/25/171999 <Electronically signed by Tone Beltran DO> [...] with confusion or weakness. He presented to [facility] ER on 06/22/2017 for similar symptoms [...] unremarkable. Fall precautions. 3. Type 2 diabetes yqqhdnbi-Sucx-Ihvhb before meals at bedtime. Continue long-acting insulin regimen. Sliding scale insulin. Hold metformin. 4. Hypertension-stable, continue home regimen. 5. Tobacco abuse-encourage smoking cessation. Nicotine replacement if desired. DVT prophylaxis-Lovenox subcu. This patient was seen by ELIZABETH Boudreaux under the supervision of Dr. Paredes. <Dale [...] ordered. I have discussed my assessment with NIKE ATHLETEDiamante and orders have been reviewed. Code Visit Inpatient E AND M: 51839 Init Hosp L3 06/25/17 1710 <Electronically signed by Diamante Shane NIKE ATHLETE-C> Date Diamante Shane NIKE ATHLETE-C 06/25/17 181<Electronically signed by Dale Paredes MD> Cosigner Signature: Date (if applicable) Dale Paredes MD CC: NIKE ATHLETE-C Diamante Shane; Odalys Beltran; Delano Epperson MD Signed ERYTHROCYTE SED RATE Collected: 06/25/2017 Status: F Source: EFF[place] 7:10 PM [facility] RE[facility] TYPE CODE TESTS RESULT OUT OF RANGE REFERENCE UNITS LAB L102.0000 0-20 mm/hr Normal SED RATE 15 Performed By: #### L101.9900 #### [facility] [address] [place], [address] AMMONIA Collected: 06/25/2017 Status: F Source: EFF[place] 7:10 PM [facility] TYPE CODE TESTS RESULT OUT OF RANGE REFERENCE UNITS LAB L503.5510 11-32 umol/L Normal AMMONIA 29.0 Performed By: #### L503.5510 #### [facility] [address] [place], [address] RAPID PLASMIN REAGIN Collected: 06/25/2017 Status: F Source: EFFIE (RPR) 7:10 PM [facility] TYPE CODE TESTS RESULT OUT OF REFERENCE UNITS RANGE LAB L700.5000 NONREACTIVE NONREACTIVE Normal RPR Performed By: #### L700.5000 #### [facility] [address] [place], [address] VITAMIN B12 Collected: 06/25/2017 Status: F Source: EFF[place] 7:10 PM [facility] TYPE CODE TESTS RESULT OUT OF RANGE REFERENCE UNITS LAB L503.0105 211-911 pg/mL Normal Vitamin B12 415 Performed By: #### L503.0105 #### [facility] [address] [place], [address] Observed: 06/25/2017 Status: F Source: E[place] CULTURE, BLOOD (WB) 7:10 PM [facility] RE[facility] Has pt arrived? Y BC No growth in 5 days. Performed By: #### M200.1000 #### [facility] [address] [place], [address] LUMBAR SPINE 2 OR 3 Observed: 06/25/2017 Status: F Source: EFF[place] VIEWS 6:55 PM [facility] Imaging Services [address] [place] [address] Lumbar Spine 2 or 3 Views MR#: [id number] Acct: [id number] Name: LANNY OLIVIER Rep #: [id number] : 1940 M 76 From: Praveen Cruz PCP: Delano Epperson MD Status: ADM IN Study: Lumbar Spine 2 or 3 Views Date of Exam: 06/25/17 Exam# [id number] Ordering Dr: Tone Beltran DO STUDY: X-RAY [...] detailed above. No fracture. Electronically Signed: Praveen Cruz DO at 21:09 EST , Service support , CC: Odalys Beltran; Delano Epperson MD Infrastructure Developer: Signed BRAIN WITHOUT Observed: 06/25/2017 Status: F Source: [place] CONTRAST 6:55 PM [facility] Imaging Services [address] [place] [address] Brain without Contrast MR#: [id number] Acct: [id number] Name: LANNY OLIVIER Wanda Rep #: [id number] : 1940 M 76 From: Joe Mcnair DO PCP: Delano Epperson MD Status: ADM IN Study: Brain without Contrast Date of Exam: 06/25/17 Exam# [id number] Ordering Dr: Tone Beltran DO STUDY: MRI [...] , CC: Odalys Beltran; Delano Epperson MD Infrastructure Developer: Signed Observed: 06/25/2017 Status: F Source: [place] CULTURE, URINE 6:20 PM [facility] Comments: From previous U/A sample of today if possible Urine Culture Culture exhibits no growth. Performed By: #### M100.0650 #### [facility] [address] [facility] [place], [address] EMERGENCY DEPARTMENT Observed: 06/25/2017 Status: F Source: [place] SUMMARY 5:30 PM [facility] Medical Records Department [address] [facility] [place] [address] Emergency Department Summary 06/25/17 1258 MR#: [id number] Acct: [id number] Name: LANNY OLIVIER Rep #: [id number] : 1940 76 From: Shavon Parker MD [...] is oriented times himself his family the [facility] knows where he is now when he [...] Impression: [] This note was generated with [employer] dictation software. It may contain incorrect words, [...] problems, contact your Primary Care Provider. Call [facility] ([phone]) or report to the closest Emergency Room. Call 911 if necessary. 06/25/17 2207 <Electronically signed by Shavon Parker MD> Date Shavon Parker MD Cosigner Signature (If Indicated): Date CC: Delano Epperson MD Observed: 06/25/2017 Status: F Source: O[place] RESPIRATORY PANEL 2:36 PM [facility] REPOSIT[facility] Order Date: 06/25/17 Comments: Deep [...] acid amplification Performed By: #### M100.638 #### [facility] [address] [place], [place], [address] URINALYSIS, COMPLETE Collected: 06/25/2017 Status: F Source: EFF[place] 2:10 PM [facility] Order Comment: Order Date: 06/25/17 How [...] URINE SEEN Performed By: #### L400.0001 #### [facility] [address] [place], [address] CBC W/DIFF, AUTOMATED Collected: 06/25/2017 Status: F Source: [place] 12:58 PM [facility] [facility] [place] REPOSITORY TYPE CODE TESTS RESULT OUT OF [...] Lymph 1.24 Performed By: #### L100.0100 #### [facility] [address] [place], [address] BASIC METABOLIC Collected: 06/25/2017 Status: F Source: EFFIE PROFILE (BMP) 12:58 PM [facility] [place] REPOSITORY Order Comment: 'TROP' Serial specimen #1, [...] By: #### L500.2500, L500.3400, L501.2450, L501.4010 #### [facility] [address] [place], [place], [address] LIVER PROFILE Collected: 06/25/2017 Status: F Source: ODANAH 12:58 PM [facility] [place] RE[facility] Order Comment: 'TROP' Serial specimen #1, [...] By: #### L500.2500, L500.3400, L501.2450, L501.4010 #### [facility] [address] [place], [place], [address] LIPASE Collected: 06/25/2017 Status: F Source: ODANAH 12:58 PM [facility] [place] RE[facility] Order Comment: 'TROP' Serial specimen #1, #2, #3, or #4: 1 TYPE CODE TESTS RESULT OUT OF RANGE REFERENCE UNITS LAB L501.2450 73-393 U/L Normal LIPASE 100 Performed By: #### L500.2500, L500.3400, L501.2450, L501.4010 #### [facility] [address] [facility] [address] [place], [place], [address] TROPONIN-I Collected: 06/25/2017 Status: F Source: ODANAH 12:58 PM [facility] [place] RE[facility] Order Comment: 'TROP' Serial specimen #1, #2, #3, or #4: 1 TYPE CODE TESTS RESULT OUT OF RANGE REFERENCE UNITS LAB L501.4010 <0.06 ng/mL Normal < 0.02 TROPONIN-I Result Comment: TROPONIN-I EXPECTED VALUES <0.05 NEGATIVE 0.06 - 0.59 AT RISK OF OR > OR = 0.60 SUGGEST OR Performed By: #### L500.2500, L500.3400, L501.2450, L501.4010 #### [facility] [address] [place], [address] CPK TOTAL, CREATINE Collected: 06/25/2017 Status: F Source: EFFIE KINASE 12:58 PM [facility] [place] RE[facility] TYPE CODE TESTS RESULT OUT OF RANGE REFERENCE UNITS LAB L501.3620 39-308 U/L Normal CPK TOTAL 131 Performed By: #### L501.3620 #### [facility] [address] [place], [address] BNP,B-TYPE NATRIURETIC Collected: 06/25/2017 Status: F Source: EFFIE PEPTIDE 12:58 PM [facility] [place] RE[facility] TYPE CODE TESTS RESULT OUT OF RANGE REFERENCE UNITS LAB L503.6620 0-100 pg/mL Normal B-TYPE 31.0 NEERAJ PEP Performed By: #### L503.6620 #### [facility] [address] [place], [address] CRP Collected: 06/25/2017 Status: F Source: EFFIE 12:58 PM [facility] [place] REPOS[facility] TYPE CODE TESTS RESULT OUT OF RANGE REFERENCE UNITS LAB L501.6710 0.0-3.0 mg/L Normal < 2.90 C-REACTIVE PROT Result Comment: C-Reactive Protein (CRP) provides useful information for the diagnosis, therapy and monitoring of inflammatory processes and associated diseases. For the evaluation of Relative Risk for Cardiovascular Disease, a High Sensitivity CRP (HSCRP) should be ordered. Performed By: #### L501.6710, L501.9520 #### [facility] [address] [place], [address] THYROID STIM HORMONE Collected: 06/25/2017 Status: F Source: EFFIE (TSH) 12:58 PM [facility] [place] REPOS[facility]ORY TYPE CODE TESTS RESULT OUT OF RANGE REFERENCE UNITS LAB L501.9520 0.358-3.74 uIU/mL Normal TSH 0.88 Performed By: #### L501.6710, L501.9520 #### [facility] [address] [place], [address] BRAIN/HEAD WITHOUT Observed: 06/25/2017 Status: F Source: ODANAH CONTRAST 12:56 PM [facility] [place] RE[facility] [address] [place] [address] Brain/Head without Contrast MR#: [id number] Acct: [id number] Name: LANNY OLIVIER Rep #: [id number] : 1940 M 76 From: You Erwin MD PCP: Delano Epperson MD Status: PRE ER Study: Brain/Head without Contrast Date of Exam: 06/25/17 Exam# [id number] Ordering Dr: Shavon Parker MD STUDY: CT [...] You Erwin MD at 13:31 EST Tel [phone], Service support , CC: MD Miguel Parker; Delano Epperson MD Infrastructure Developer: Signed CHEST 1 VIEW Observed: 06/25/2017 Status: F Source: EFFIE (PORTABLE) 12:45 PM [facility] [place] [facility] [address] [place] [address] Chest 1 View (Portable) MR#: [id number] Acct: [id number] Name: LANNY OLIVIER Rep #: [id number] : 1940 M 76 From: You Erwin MD PCP: Delano Epperson MD Status: REG ER Study: Chest 1 View (Portable) Date of Exam: 06/25/17 Exam# [id number] Ordering Dr: Shavon Parker MD STUDY: X-RAY [...] You Erwin MD at 13:44 EST Tel [phone], Service support , CC: MD Rivera Jwmaynoryeana m; Delano Epperson MD Infrastructure Developer: Signed EMERGENCY DEPARTMENT Observed: 06/22/2017 Status: F Source: ODANAH SUMMARY 12:55 PM [facility] [place] RE[facility] Medical Records Department [address] [place] [address] Emergency Department Summary 06/22/17 1251 MR#: [id number] Acct: [id number] Name: LANNY OLIVIER Rep #: [id number] : 1940 76 From: Christiano Oliveros MD [...] illness, influenza This note was generated with Priztag dictation software. It may contain incorrect words, [...] your Primary Care Provider. Call [facility] ([phone]) or report to the closest Emergency Room. Call 911 if necessary. 06/22/17 1255 <Electronically signed by Christiano Oliveros MD> Date Christiano Oliveros MD Cosigner Signature (If Indicated): Date CC: Delano Epperson MD CHEST PA AND LATERAL Observed: 06/22/2017 Status: F Source: ODANAH 12:03 PM [facility] [place] [facility] [address] [place] [address] Chest PA and Lateral MR#: [id number] Acct: [id number] Name: LANNY OLIVIER Rep #: [id number] : 1940 M 76 From: You Erwin MD PCP: Delano Epperson MD Status: REG ER Study: Chest PA and Lateral Date of Exam: 06/22/17 Exam# [id number] Ordering Dr: Christiano Oliveros MD STUDY: X-RAY CHEST REASON FOR [...] You Erwin MD at 12:36 EST Tel [phone], Service support , CC: Delano Epperson MD; Christiano Oliveros MD Infrastructure Developer: Signed ALLERGIES ALLERGIES DATE TYPE / CODE NAME / CODE REACTION SEVERITY SOURCE 06/15/2018 Drug No Known Unknown [place] Allergy/416 Allergies/R85692 Community 777327(SNOM 0388(RXNORM) [facility] ED CT) Repository 11/14/2016 DRUG EZETIMIBE Myalgia Low [facility] INGREDI/[address] [place] 353497(SNOM Repository ED CT) 11/14/2016 DRUG EZETIMIBE Myalgia [facility] INGREDI/[address] 636495(SNOM Repository ED CT) 11/16/2014 Drug XLGVAVN-ZZY-MZW INTOLERANCE Low [facility] Class/81767 REDUCTASE [address] [place] 1003(SNOMED INHIBITORS Repository CT) 11/16/2014 Drug CSMLDOD-WHY-YFV INTOLERANCE [facility] Class/56368 REDUCTASE [address] [place] 1003(SNOMED INHIBITORS Repository CT) NG/79253057 EFZLJNM-CDO-FWQ [facility] 6(SNOMED REDUCTASE [facility] CT) INHIBITORS Repository NG/18334600 EZETIMIBE [facility] 6(SNOMED [facility] CT) Repository ENCOUNTERS ENCOUNTERS ADMIT/DISCHARGE ACCOUNT NUMBER ADMITTING ENCOUNTER LOCATION SOURCE CLASS 06/17/2018 [id number] Beto Lucia Inpatient [place] Encounter [facility] ding:[id number] Repository : RD579Ovg: 1 06/15/2018/06/15/19 [id number] Ambulatory BMSBuilding: [place]ie 19 BMS.[facility] Repository 06/14/2018 [id number] Ambulatory [facility] ding:CT Repository 06/09/2018/06/09/19 [id number] Emergency [address] ding:ED Repository 06/09/2018/06/10/19 [id number] Ambulatory [address] Repository 06/07/2018/06/07/19 [id number] Ambulatory [address] Repository 05/13/2018/05/13/20 [id number] Ambulatory [address] Repository 05/13/2018/05/13/20 [id number] Ambulatory [address] MEDICAL Repository ELLSTONBuildi ng:AGGENS5 04/26/2018/04/28/20 [id number] RAMONE LOVE Inpatient [address] Repository 04/26/2018/04/28/20 [id number] RAMONE LOVE F Inpatient [place] [address] Encounter [facility] MEDICAL Repository ELLSTONBuildi nARoom: 5201Bed: 04/26/2018 [id number] Ambulatory BMSBuilding: [place] BMS.[facility] Repository 04/26/2018/04/26/20 [id number] JordanalonsoTania Emergency [address] ding:EDRoom: Repository MS311 12/07/2017/12/09/19 [id number] Ambulatory [address] Repository 11/26/2017/11/27/19 [id number] Ambulatory [address] Repository 06/30/2017/06/30/19 [id number] Ban, Ambulatory [place] [address] [address] Davidson [facility] Repository 06/25/2017/06/29/19 [id number] Reggie, Inpatient [place] [address] [facility] ding:LT9Bdwu Repository : ND308Vbb: 1 06/25/2017 [id number] [facility], Ambulatory BMSBuilding: [place] BMS.[facility] Repository 06/25/2017 [id number] [facility], Ambulatory BMSBuilding: [place] BMS.[facility] Repository 06/25/2017 [id number] [facility], Ambulatory BMSBuilding: [place] BMS.[facility] Repository 06/25/2017 [id number] [facility], Ambulatory BMSBuilding: [place] BMS.[facility] Repository 06/25/2017 [id number] [facility], Ambulatory BMSBuilding: [place] BMS.[facility] Repository 06/25/2017/06/29/19 [id number] Ambulatory BMSBuilding: [place] 18 [facility] Repository 06/22/2017/06/22/19 [id number] Emergency [address] ding:ED Repository PAYERS PAYERS ENCOUNTER GUARANTOR PAYER SUBSCRIBER SOURCE 06/17/2018 LANNY J Primary LANNY J [place] [id number] SR Insurance:MEDICARE PORTERDOB: [address], PART A BPolicy Number: [id number] [address]Zrv: [id number] Repository Date:2018-06-15 () 06/17/2018 Secondary LANNY J [place] Insurance:HUMANA PORTERDOB: [facility] [id number] Hospital Number: Repository [id number] Date:[id number] [address]OQ: 06/17/2018 Tertiary NOT GIVENUNK [place] Insurance:SELF PAY [facility] Number: Effective Repository Date:2018-06-15 06/15/2018 LANNY J Primary LANNY J [place] [id number] SR Insurance:MEDICARE PORTERDOB: [address], PART A BPolicy Number: [id number] Medical Center [address]Kik: [id number] Repository Date:2018-06-10 () 06/15/2018 Secondary LANNY J [place] Insurance:HUMANA PORTERDOB: [facility] [id number] Hospital Number: Repository [id number] Date:4338-34-12YF[address] [address]ST: 06/15/2018 Tertiary NOT GIVENUNK [place] Insurance:SELF PAY [facility] Number: Effective Repository Date:2018-06-15 06/14/2018 LANNY J Primary LANNY J [place] [id number] SR Insurance:MEDICARE PORTERDOB: [place] [address], PART A BPolicy Number: [id number] [place] [address]Udb: [id number] Repository Date:2018-06-10 () 06/14/2018 Secondary LANNY J [place] Insurance:HUMANA PORTERDOB: [facility] [id number] Hospital Number: Repository [id number] Date:9953-30-81DB [address] [address]IR: 06/14/2018 Tertiary NOT GIVENUNK [place] Insurance:SELF PAY [facility] Number: Effective Repository Date:2018-06-10 06/09/2018 LANNY J Primary LANNY J [place] [id number] SR Insurance:MEDICARE PORTERDOB: [facility] [address], PART A BPolicy Number: [id number] [place] [address]Qjv: [id number] Repository Date:2018-06-09 () 06/09/2018 Secondary LANNY J [place] Insurance:HUMANA PORTERDOB: [facility] [id number] Hospital Number: Repository [id number] Date:5043-16-99JQ [address] [place] [address]JD: 06/09/2018 Tertiary NOT GIVENUNK [place] Insurance:SELF PAY [facility] Number: Effective Repository Date:2018-06-09 05/13/2018 LANNY J Primary LANNY J [facility] PORTERDOB: Insurance:MEDICARE A PORTERDOB: Health System AND BPolicy Number: [id number] Repository [place] [address] [id number] [place], [place] Date: [address]Apc: () 05/13/2018 Secondary LANNY J [facility] Insurance:HUMANA PORTERDOB: [facility] MEDICARE [id number] Repository SUPPLEMENTPolicy Number: [id number] Date: 04/26/2018 LANNY J Primary LANNY J [facility] PORTERDOB: Insurance:MEDICARE A PORTERDOB: [facility] AND BPolicy Number: [id number] Repository [place] [address] [id number] [place] Date: [address]Iuy: (HP) 04/26/2018 Secondary LANNY J [facility] Insurance:HUMANA PORTERDOB: [facility] MEDICARE [id number] Repository SUPPLEMENTPolicy Number: [id number] Date: 04/26/2018 LANNY J Primary LANNY J [place] [id number] SR Insurance:MEDICARE PORTERDOB: [facility] [address], PART A BPolicy Number: [id number] Hospital [place] [address]Bjg: [id number] Repository Date:2018-04-26 (HP) 04/26/2018 Secondary LANNY J [place] Insurance:HUMANA PORTERDOB: [facility] [id number] Hospital Number: Repository [id number] Date:9235-92-84PL[address] [address]WT: 04/26/2018 Tertiary NOT GIVENUNK [place] Insurance:SELF PAY [facility] Number: Effective Repository Date:2018-04-26 04/26/2018 LANNY J Primary LANNY J [place] [id number] SR Insurance:MEDICARE PORTERDOB: [facility] [address], PART A BPolicy Number: [id number] [place] [address]Wzf: [id number] Repository Date:2018-04-26 (HP) 04/26/2018 Secondary LANNY J [place] Insurance:HUMANA PORTERDOB: [facility] [id number] Hospital Number: Repository [id number] Date:6370-02-04SG[address] [address]UN: 04/26/2018 Tertiary NOT GIVENUNK [place] Insurance:SELF PAY [facility] Hospital Number: Effective Repository Date:2018-04-26 06/30/2017 Primary NOT [id number] [facility] Number: [facility] [id number] [address]Ewt: 419) Repository Date:Plan () Name:[id number] [place], [place] [address]II: 06/25/2017 LANNY J Primary LANNY J [place] [id number] SR Insurance:MEDICARE PORTERDOB: [place] [address], PART A BPolicy Number: [id number] Medical Center [address]Rth: [id number] Repository Date:2017-06-25 () 06/25/2017 Secondary LANNY J [place] Insurance:HUMANA PORTERDOB: [facility] [id number] Hospital Number: Repository [id number] Date:9177-26-92MW [address] [address]VA: 06/25/2017 Tertiary NOT GIVENUNK [place] Insurance:SELF PAY [facility] Hospital Number: Effective Repository Date:2017-06-25 06/25/2017 LANNY J Primary LANNY J [place] [id number] SR Insurance:MEDICARE PORTERDOB: [place] [address], PART A BPolicy Number: [id number] Medical Center [address]Gng: [id number] Repository Date:2017-06-25 () 06/25/2017 Secondary LANNY J [place] Insurance:HUMANA PORTERDOB: [facility] COMMERCIALPolicy [id number] Hospital Number: Repository [id number] Date:0457-39-90JN [address] [address]HI: 06/25/2017 Tertiary NOT GIVENUNK [place] Insurance:SELF PAY [facility] Hospital Number: Effective Repository Date:2017-06-25 06/25/2017 LANNY J Primary LANNY J [place] [id number] SR Insurance:MEDICARE PORTERDOB: Community [address], PART A BPolicy Number: [id number] Medical Center [address]Sjy: [id number] Repository Date:2017-06-25 () 06/25/2017 Secondary LANNY J [place] Insurance:HUMANA PORTERDOB: [facility] [id number] Hospital Number: Repository [id number] Date:3279-02-69GZ [address] [address]NA: 06/25/2017 Tertiary NOT GIVENUNK [place] Insurance:SELF PAY [facility] Number: Effective Repository Date:2017-06-25 06/25/2017 LANNY J Primary LANNY J [place] [id number] SR Insurance:MEDICARE PORTERDOB: [facility] [address], PART A BPolicy Number: [id number] Medical Center [address]Yqo: [id number] Repository Date:2017-06-25 () 06/25/2017 Secondary LANNY J [place] Insurance:HUMANA PORTERDOB: [facility] [id number] Hospital Number: Repository [id number] Date:9103-36-50DN[address] [address]OE: 06/25/2017 Tertiary NOT GIVENUNK [place] Insurance:SELF PAY [facility] Number: Effective Repository Date:2017-06-25 06/25/2017 LANNY J Primary LANNY J [place] [id number] SR Insurance:MEDICARE PORTERDOB: [facility] [address], PART A BPolicy Number: [id number] Medical Center [address]Wkn: [id number] Repository Date:2017-06-25 () 06/25/2017 Secondary LANNY J [place] Insurance:HUMANA PORTERDOB: [facility] [id number] Hospital Number: Repository [id number] Date:5671-71-18SX [address] [address]PN: 06/25/2017 Tertiary NOT GIVENUNK [place] Insurance:SELF PAY [facility] Number: Effective Repository Date:2017-06-25 06/25/2017 LANNY J Primary LANNY J [place] [id number] SR Insurance:MEDICARE PORTERDOB: [place] [address], PART A BPolicy Number: [id number] Medical Center [address]Onn: [id number] Repository Date:2017-06-25 () 06/25/2017 Secondary LANNY J [place] Insurance:HUMANA PORTERDOB: [facility] [id number] Hospital Number: Repository [id number] Date:3437-96-94KE [address] [address]VE: 06/25/2017 Tertiary NOT GIVENUNK [place] Insurance:SELF PAY [facility] Number: Effective Repository Date:2017-06-25 06/25/2017 LANNY J Primary LANNY J [place] [id number] SR Insurance:MEDICARE PORTERDOB: [place] [address], PART A BPolicy Number: [id number] Medical Center [address]Lmw: [id number] Repository Date:2017-06-25 () 06/25/2017 Secondary LANNY J [place] Insurance:HUMANA PORTERDOB: [facility] [id number] Hospital Number: Repository [id number] Date:7406-44-89XA [address] [address]XQ: 06/25/2017 Tertiary NOT GIVENUNK [place] Insurance:SELF PAY [facility] Number: Effective Repository Date:2017-06-25 06/22/2017 LANNY J Primary LANNY J [place] [id number] SR Insurance:MEDICARE PORTERDOB: [place] [address], PART A BPolicy Number: [id number] Medical Center [address]Bje: [id number] Repository Date:2017-06-22 (HP) 06/22/2017 Secondary LANNY [place] Insurance:HUMANA PORTERDOB: Community COMMERCIALPolicy [id number] Hospital Number: Repository [id number] Date:2669-04-81[address] [address]FXMLGKDV, [place] [address]LZ: 06/22/2017 Tertiary NOT GIVENUNK [place] Insurance:SELF PAY [facility] Hospital Number: Effective Repository Date:2017-06-22
== END ==
PROVIDERS: Family Provider Family Medicine; PCP Family Medicine; Referring Provider Surgery; Visit Provider Surgery
DX: R10.9 Unspecified abdominal pain (principal); R93.5 Abnormal findings on diagnostic imaging of other abdominal regions, including retroperitoneum
CPT/HCPCS: 74177; Q9967

== ENCOUNTER 2018-06-17 06:55 | Inpatient (IN) | payer MEDICARE, OTHER, SELFPAY ==
[2018-06-15 15:08] VITALS: BMI 25.8
[2018-06-17] VITALS (12 sets, daily range): BP systolic 101–135; BP diastolic 50–65; PULSE 60–76; RESP 16–18; TEMP 36.2–36.9; O2SAT 91–100; BMI 24.1
[2018-06-17] MEDS: Lactated Ringers 1,000 ML 100 ML IV ×2 (07:15→15:05)
[2018-06-17 07:45] LABS: Absolute Lymphocyte Count 1.53 X10^3/ul (0.83-4.51); Absolute Neutrophil Count 7.2 X10^3/uL (2.0-7.7); Anion Gap 11 (5-15); BUN 18 mg/dL (7-18); BUN/Creat Ratio 18.1 RATIO (10-20); Basophil# 0.06 X10^3/uL; Basophil% 0.6 % (0-1); Calcium,Total 8.7 mg/dL (8.5-10.1); Chloride 102 mmol/L (98-107); EST Glomerular Filtration Rate 77 mL/min (>60); Eosinophil# 0.13 X10^3/uL; Eosinophils% 1.3 % (0-5); Est Glom Filt Rate - Afr Amer 94 mL/min (>60); Estimated Creatinine Clearance 64.89 ml/min; Glucose 101 mg/dL (74-106); Hematocrit 40.3 % (40-54); Hemoglobin 13.3 g/dl (13.0-16.5); Lymphocyte # 1.53 X10^3/ul (4.0); Lymphocyte % 15.6 % (19-41); Mean Corpuscular Hgb 27.1 pg (27.0-32.0); Mean Corpuscular Volume 82.2 fL (80-94); Mean Platelet Vol. 9.9 fl (6.2-12.0); Monocyte# 0.91 X10^3/uL; Monocyte% 9.3 % (0-10); Neutrophil # 7.17 X10^3/uL (2.7-7.7); Neutrophil % 72.9 % (47-70); Platelet Count 423 K/mm3 (150-450); Potassium 3.4 mmol/L (3.5-5.1); RBC Distribution Width CV 15.1 % (11.6-14.6); RBC Distribution Width SD 45.3 fl (35.1-43.9); Sodium Level 136 mmol/L (136-145); White Blood Count 9.8 K/mm3 (4.4-11.0)
[2018-06-17 07:54] LABS: POSITIVE COUNT NO; POSITIVE DIFFERENTIAL NO; POSITIVE MORPHOLOGY NO
[2018-06-17] MEDS: 0.9% NaCl Peripheral Flush Adult/Peds IV (08:00)
--- NOTE | 2018-06-17 08:36 | NURSING ---
PT TOLERATED 1500ML OF WARM TAP WATER ENEMA GIVEN OVER 15 MINUTES. PT ASSISTED X2 STAFF UP TO BSC.
[2018-06-17] MEDS: Potassium Chloride 10mEq/100mL 10 MEQ/100 ML IV.SOLN. 100 MEQ IV BOLUS ×3 (09:09→11:40)
[2018-06-17] MEDS: 0.9% NaCl IVPB Med Flush (250 mL) 15 ML IV (09:14)
--- NOTE | 2018-06-17 09:15 | NURSING ---
RESULTS FROM FIRST TWE: WIGGINS COLORED CLOUDY LIQUID WITH SMALL FORMED PIECES OF STOOL. PT RETURNED TO BED. 2ND TAP WATER ENEMA GIVEN (1500ML) OVER 5 MINUTES. PT ABLE TO RETAIN FOR ABOUT 5 MINUTES THEN ASSIST UP TO BSC.
--- NOTE | 2018-06-17 09:36 | NURSING ---
RESTULTS FROM 2ND TWE: YELLOW WIGGINS CLOUDY LIQUID, FEW SMALL PIECES OF FORMED STOOL. JUAN CARE DONE. PT ASSISTED BACK TO BED AND 3RD TWE (1500 ML) PT TOLERATED OVER 5 MINUTES. PT ABLE TO RETAIN <5 MINUTES AND ASSISTED OOB TO BSC. SPOKE WITH ROSITA JOSEPH ON TELEPHONE IN PT ROOM AND UPDATED.
--- NOTE | 2018-06-17 09:53 | NURSING ---
RESULTS OF 3RD TWE: NO FORMED PIECES, YELLOW/BROWN CLOUDY LIQUID. JUAN CARE DONE, PT ASSISTED BACK TO BED AND ATTENDS APPLIED.
--- NOTE | 2018-06-17 10:56 | PCM.PN.BLA ---
Progress Note Colonoscopy was performed today to the hepatic flexure. I visualized friability. Could not be distinctly centimeters mass but bowel prep was poor. This seems to correlate with the CT scan evidence. There was diffuse stool located throughout the remainder of the colon but no gross large lesions noted in the remainder of the colon. On his clinical examination however he is decompressed since his office visit With that in mind we will keep him on clear liquids today and offer a small bowel prep. I also anticipate converting to a laparoscopic exploration tomorrow with possible conversion to a hand assist or open approach if indicated We will pursue a small oral mechanical prep and oral antibiotics and IV antibiotics prior to the procedure. Beto Lucia M.D., F.A.C.S.
--- NOTE | 2018-06-17 11:02 | OP.ENDO_ITS ---
Patient Name: Wallace Martel Procedure Date: 06/17/2018 10:38 AM Date of : 1940 Age: 77 Procedure: Colonoscopy Indications: Generalized abdominal pain, Abnormal CT of the GI tract Providers: Beto Lucia MD Referring MD: Beto Lucia MD Medicines: See the Anesthesia note for documentation of the administered medications Patient Profile: Last Colonoscopy: none. The patient's first colonoscopy is today. Complications: No immediate complications. Procedure: Pre-Anesthesia Assessment: - Prior to the procedure, a History and Physical was performed, and patient medications and allergies were reviewed. The patient's tolerance of previous anesthesia was also reviewed. The risks and benefits of the procedure and the sedation options and risks were discussed with the patient. All questions were answered, and informed consent was obtained. Prior Anticoagulants: The patient has taken no previous anticoagulant or antiplatelet agents. ASA Grade Assessment: III - A patient with severe systemic disease. After reviewing the risks and benefits, the patient was deemed in satisfactory condition to undergo the procedure. After I obtained informed consent, the scope was passed under direct vision. Throughout the procedure, the patient's blood pressure, pulse, and oxygen saturations were monitored continuously. The Colonoscope was introduced through the anus and advanced to the hepatic flexure to examine a mass. This was the intended extent. The colonoscopy was performed without difficulty. The patient tolerated the procedure well. The quality of the bowel preparation was poor. Scope In: 10:43:31 AM Scope Out: 10:51:11 AM Total Procedure Duration Time 0 hours 7 minutes 40 seconds Findings: The digital rectal exam findings include non-thrombosed external hemorrhoids, non-thrombosed internal hemorrhoids, internal hemorrhoids that prolapse with straining, but spontaneously regress to the resting position (Grade II) and enlarged prostate. A moderate amount of stool was found in the entire colon, interfering with visualization. A obstructiong mass noted.A obstructing mass was found at the hepatic flexure. Impression: - Preparation of the colon was poor. - Non-thrombosed external hemorrhoids, non-thrombosed internal hemorrhoids, internal hemorrhoids that prolapse with straining, but spontaneously regress to the resting position (Grade II) and enlarged prostate found on digital rectal exam. - Stool in the entire examined colon. - Tumor at the hepatic flexure. - No specimens collected. Plan surgical resection of colon tomorrow Recommendation: - Repeat colonoscopy in 1 year for surveillance. - Continue present medications. Procedure Code(s): --- Professional --- 39109, 53, Colonoscopy, flexible; diagnostic, including collection of specimen(s) by brushing or washing, when performed (separate procedure) Diagnosis Code(s): --- Professional --- K64.1, Second degree hemorrhoids K64.4, Residual hemorrhoidal skin tags D49.0, Neoplasm of unspecified behavior of digestive system R10.84, Generalized abdominal pain N40.0, Benign prostatic hyperplasia without lower urinary tract symptoms R93.3, Abnormal findings on diagnostic imaging of other parts of digestive tract CPT copyright 2017 [employer]. All rights reserved. The codes documented in this report are preliminary and upon medical coder review may be revised to meet current compliance requirements. Beto Lucia MD 06/17/2018 11:02:50 AM This report has been signed electronically. Number of Addenda: 0 Note Initiated On: 06/17/2018 10:38 AM
--- NOTE | 2018-06-17 12:39 | DCINST_ITS ---
Discharge Diet: - - Continue on transitional diet until follow-up in office Discharge Activity: May Not Drive - 5 days May shower in (days): 1 Lifting Restrictions: 10 pounds Call your doctor if your incision/area has: Continuous Slow Oozing, Sudden Increased Bleeding, Increased Pain/ Swelling, Increased Redness, Foul Smelling Discharge, Swelling at the incision site Suture Line Care: Avoid Pulling/Pushing, Avoid Pinching/Bending Remove Dressing in (days):: 2 - Leave steri-strips intact Cleanse incision/area with: Soap & Water Allergies/Adverse Reactions: Allergies No Known Allergies Allergy (Verified 06/15/18 15:08) Medications to take at Discharge Insulin Aspart [Novolog Flexpen] 6 units SUBCUT BIDCM 06/25/17 Insulin Glargine,Hum.rec.anlog [Lantus] 25 unit SQ QHS 06/25/17 Lisinopril/Hydrochlorothiazide [Zestoretic 20-25 mg Tablet] 1 ea PO DAILY 06/25/17 Metformin HCl [Glucophage] 1,000 mg PO BIDCM 06/25/17 Hydrocodone Bitart/Apap 5-325 [[place] 5/325] 1 tablet PO Q6H PRN PRN 3 Days #10 tablet 06/17/18 The following prescriptions were given: Hydrocodone Bitart/Apap 5-325 [[place] 5/325] 1 tablet PO Q6H PRN PRN 3 Days #10 tablet PRN Reason: Severe Pain (6-10/10) Primary Care Physician: Delano Garcia MD [Primary Care Provider] - Test Results: Test results from this visit will be discussed in further detail at your follow- up appointment, if applicable. Please Follow Up With: Beto Lucia MD - [phone] When: 10 days
[2018-06-17] MEDS: Menthol/Lanolin/Calamine/Znox 113 GM Tube 1 APPLIC TOPICAL (13:01)
[2018-06-17] MEDS: Enoxaparin 40 MG/0.4 ML Syringe SC (13:01)
[2018-06-17] MEDS: Electrolyte Solution/Peg's 4000 ML 2000 ML PO (14:53)
[2018-06-17] MEDS: metroNIDAZOLE 500 MG Tablet 1000 MG PO ×3 (15:08→22:32)
--- NOTE | 2018-06-17 15:25 | CASEMGMT ---
RN CM Assessment Presentation: for colonoscopy today. continued bowel prep and possible surgical intervention tomorrow. Attempted to see pt for RN CM assessment, however nursing is in with pt and he is receiving bowel prep. Chart reviewed. PCP: Dr. Garcia Specialists: Dr. Beto Lucia [facility]erred [facility]acy: [facility] Insurance: [facility] [place]: DC PLAN: undetermined. recommend PT/OT after surgery and CM f/u for dc needs.
[2018-06-17 17:11] LABS: Bedside Glucose 101 mg/dL (70-110)
[2018-06-17 22:50] LABS: Bedside Glucose 89 mg/dL (70-110)
[2018-06-18] VITALS (13 sets, daily range): BP systolic 89–122; BP diastolic 50–71; PULSE 64–76; RESP 16–18; TEMP 36.6–37.2; O2SAT 90–99; BMI 24.1
--- NOTE | 2018-06-18 | COL._PTH ---
PATIENT: LANNY OLIVIER LOC: MS3 U#:[id number] AGE/SX: 77/M ROOM: SC323 RE06/17/[address]: Dr. Beto Lucia MD : 1940 BED: 1 DIS: 06/20/2018 SPEC #: [id number] RECD: 06/18/18 14:49 STATUS: BERTRAM RENadia #: [id number] STEPHAN: 06/18/18 00:[address]: Beto Lucia DEPT: SURGICAL PATHOLOGY RECD BY: Kiran Luna ENTERED: 06/18/18 14:49 SP TYPE: COLON OTHR DR: Dr. Delano Garcia MD Tissues: Colon, NOS Procedures: Surgery Specimen Level HEADER OPERATION: Laparoscopic right hemicolectomy PRE-OP DIAGNOSIS: Malignant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 hepatic flexure TISSUE SUBMITTED: Right colon and staple line MICROSCOPIC DIAGNOSIS Right colon, right hemicolectomy: Invasive adenocarcinoma. See cancer checklist below. 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 The serosa is uninvolved by carcinoma. Margins: Proximal margin - uninvolved by carcinoma Distal margin - uninvolved by carcinoma Circumferential margin - uninvolved by carcinoma Treatment effect - unknown Lymph-Vascular invasion - not identified Perineural invasion - not identified Tumor deposits - not present Lymph nodes: Number of lymph nodes examined - 31 Number of lymph nodes involved - 0 Distant metastasis - unknown Ancillary studies: Microsatellite Instability Study: Negative (no loss of mismatch protein; no microsatellite instability detected). Immunohistochemistry Studies for Mismatch Repair Proteins: MLH1 - Intact nuclear positivity, tumor cells MSH2 - Intact nuclear positivity, tumor cells MSH6 - Intact nuclear positivity, tumor cells PMS2 - Intact nuclear positivity, tumor cells (See microsatellite instability study [id number] for complete details). PATHOLOGIC STAGE: pT3 N0 Mx The above summary is in compliance with [employer] (CAP) Cancer Protocols Checklist and [place] [employer] on Cancer (AJCC), Staging Manual, 8th Ed. Case has been reviewed in consultation with Dr. Castelan who concurs with the above diagnosis. IDC:CE MICROSCOPIC DESCRIPTION Slides are reviewed. GROSS DESCRIPTION Received in fixative is one container labeled with the patient's name and designated right colon and staple line. The specimen consists of a 17 cm segment of large bowel containing a mass and attached 4.8 cm segment of terminal ileum. Appendix is not present. Also free in the container is an elongated fragment of mucosa with attached soft tissue representing staple line and measuring 3.5 x 1 x 0.5 cm. The mass in the large bowel is located approximately 9.5 cm from the distal margin of resection and 11 cm from the proximal margin of resection. The mass occupies 100% of the circumference of the bowel and measures 8.8 x 4.5 x 1.5 cm. The specimen is surrounding by mane-yellow fibrofatty tissue. The serosa in the area of the mass is inked in black ink. The remainder of the small and large bowel mucosa is thrown into normal folds. No other mass lesions are identified. Serial sections through the mass reveal possible involvement of subserosal fat. Plant Protection Supervisor sections are submitted as follows: 1 - proximal and mucosal margins, 2 - staple line, 3-8 - tumor, 9 - one lymph node, serially sectioned, 10 - one lymph node, bisected, 11 & 12 - multiple lymph nodes in each cassette, 13 - one lymph node, serially sectioned, 14 - multiple lymph nodes, 15 - one lymph node, serially sectioned, 16-17 - multiple lymph nodes in each cassette. / AM:yaa 06/21/18 TC:0 CPT: 76590
--- NOTE | 2018-06-18 | IMM_PTH ---
PATIENT: LANNY OLIVIER LOC: [facility]3 U#:[id number] AGE/SX: 77/M ROOM: VA323 RE06/17/[address]: Dr. Beto Lucia MD : [id number] BED: 1 DIS: 06/20/2018 SPEC #: [id number] RECD: 06/23/18 12:53 STATUS: SOUUma REQ #: [id number] STEPHAN: 06/18/18 00:[address]: Beto Lucia DEPT: IMMUNOHISTOCHEMISTRY RECD BY: Lorena Nagel ENTERED: 06/23/18 12:54 SP TYPE: IMMUNO OTHR DR: Dr. Delano Garcia MD Tissues: Right colon Procedures: MSH2 (add) MLH-1 (add) MSH6 (add) Anti-PMS2 (add) HENDERSON-2 (add) HER2 JEFF (add) P53 (add) KI-67 (initial) PHYSICIAN & INSTITUTION [place] [id number] SPECIMEN INFORMATION: Tissue Source: Right colon Clinical Info: Malignant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 hepatic flexure Specimen Number: [id number] CPT code: 33449, 29348 x7 METHODOLOGY: Deparaffinized sections of prefer/formalin-fixed tissue or PAP/DQ stained slides are incubated with monoclonal/polyclonal antibodies/oligonucleotide probes. Localization is made via biotin free immunoperoxidase method. Appropriate controls are performed and reacted as expected. Results on target cell population are indicated in the following table: RESULTS: ANTIBODY / CLONE RESULT Ki-67 (30-9) positive, high P53 (DO-7) positive, rare cells HENDERSON-2 (SP21) positive MLH-1 (M1) positive MSH2 (25D12) positive MSH6 (44) positive PMS2 (VMV1695) positive Her-2neu (CB11) negative These tests were developed and their performance characteristics determined by [facility]. They may not have been cleared or approved by the U.S. Food and Drug Administration. The FDA has determined that such clearance or approval is not necessary. INTERPRETATION: Right colon, hemicolectomy: Invasive adenocarcinoma. Result of Microsatellite Instability Study: Negative (no loss of mismatch protein; no microsatellite instability detected). AM:yaa 06/24/18
[2018-06-18] MEDS: Lactated Ringers 1,000 ML 100 ML IV (00:29)
--- NOTE | 2018-06-18 05:00 | EKG12_ITS ---
Test Reason : AM EKG Blood Pressure : / mmHG Vent. Rate : 065 BPM Atrial Rate : 065 BPM P-R Int : 262 ms QRS Dur : 112 ms QT Int : 424 ms P-R-T Axes : 056 005 033 degrees QTc Int : 440 ms Sinus rhythm with 1st degree A-V block Incomplete right bundle branch block Confirmed by CAMI FINNEGAN, JOHN ([id number]), features editor KOTA WANG ([id number]) on 06/22/2018 3:50:32 PM Referred By: Beto Lucia Confirmed By:JOHN ALMANZA MD
[2018-06-18 06:47] LABS: Bedside Glucose 107 mg/dL (70-110)
[2018-06-18 07:05] LABS: Absolute Lymphocyte Count 1.43 X10^3/ul (0.83-4.51); Absolute Neutrophil Count 4.4 X10^3/uL (2.0-7.7); Basophil# 0.04 X10^3/uL; Basophil% 0.6 % (0-1); Eosinophil# 0.22 X10^3/uL; Eosinophils% 3.3 % (0-5); Hematocrit 36.7 % (40-54); Hemoglobin 12.2 g/dl (13.0-16.5); Lymphocyte # 1.43 X10^3/ul (4.0); Lymphocyte % 21.2 % (19-41); Mean Corp Hgb Conc 33.2 g/gl (32-36); Mean Corpuscular Hgb 27.3 pg (27.0-32.0); Mean Corpuscular Volume 82.1 fL (80-94); Mean Platelet Vol. 9.9 fl (6.2-12.0); Monocyte# 0.68 X10^3/uL; Monocyte% 10.1 % (0-10); Neutrophil # 4.35 X10^3/uL (2.7-7.7); Neutrophil % 64.7 % (47-70); Platelet Count 337 K/mm3 (150-450); RBC Distribution Width CV 14.8 % (11.6-14.6); RBC Distribution Width SD 43.8 fl (35.1-43.9); Red Blood Count 4.47 M/mm3 (4.6-6.2); White Blood Count 6.7 K/mm3 (4.4-11.0)
[2018-06-18 07:25] LABS: Anion Gap 8 (5-15); BUN 7 mg/dL (7-18); BUN/Creat Ratio 8.2 RATIO (10-20); Calcium,Total 8.1 mg/dL (8.5-10.1); Chloride 108 mmol/L (98-107); Creatinine, Serum 0.85 mg/dL (0.70-1.30); EST Glomerular Filtration Rate 93 mL/min (>60); Est Glom Filt Rate - Afr Amer 113 mL/min (>60); Estimated Creatinine Clearance 76.34 ml/min; Glucose 105 mg/dL (74-106); Potassium 3.6 mmol/L (3.5-5.1); Sodium Level 138 mmol/L (136-145)
[2018-06-18 07:26] LABS: POSITIVE COUNT NO; POSITIVE DIFFERENTIAL NO; POSITIVE MORPHOLOGY NO
--- NOTE | 2018-06-18 10:09 | NURSING ---
PT TO OR VIA BED. REPORT CALLED TO NILE XIONG IN [facility]
--- NOTE | 2018-06-18 10:34 | CASEMGMT ---
TYRESE BONILLA attempted to complete Face to Face. Patient is currently in surgery. Will attempt again at later time.
[2018-06-18] MEDS: Bupivacaine 0.25% 30 ML Vial ×2 (13:30)
[2018-06-18] MEDS: BUPIVACAINE LIPOSOME/PF 20 ML VIAL OPERA.SITE (13:30)
--- NOTE | 2018-06-18 14:12 | OP.PCM_ITS ---
Problem List (1) Colon cancer Status: Acute Qualifiers: Colon location: transverse Qualified Code(s): C18.4 - Malignant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 transverse colon Report of Operation Date of Procedure: 06/18/18 Pre-Operative Diagnosis: Obstructing colon cancer proximal transverse colon Post-Operative Diagnosis: Same Surgery/Procedure Performed:: Laparoscopic mobilization of the right colon with conversion to an open incision and right colectomy Description of Surgical Findings:: Timeout and informed consent was obtained. 77-year-old gent was taken the operating room. He was placed on the table. He underwent general anesthesia with endotracheal intubation. He has an obstructing malignancy of the proximal transverse colon. He did receive oral antibiotic and a minimal mechanical prep. He received 2 g of cefotetan IV intravenously. The abdomen was sterilely prepped and draped. Throughout the procedure 0.25% Marcaine total of 60 cc was mixed with 20 cc of Exparel and used as a local anesthetic. Skin sites were pre-anesthetized. A bilateral tap block was utilized laparoscopically as well. A supra umbilical vertical incision was created holding sutures of 0 Vicryl placed varies needle inserted saline drop test performed the abdomen was insufflated with CO2 to a pressure of 10 mmHg pressure to me trocar inserted in the lap scope inserted no evidence of any trocar injuries 5 mm trochars were placed in the left epigastrium and in the right lower quadrant. There were adhesions of the transverse colon to the anterior abdominal wall at the previous exit site for the patient's recent cholecystectomy. A larger than usual incision was made in the epigastric site. I addressed those adhesions first with the harmonic scalpel. Then there was clear evidence of the mass effect in the proximal transverse colon. The proximal ascending colon was still distended as was the terminal ileum. I addressed the ileocolonic vessels first place that on stretch dissected the mesentery immediately found enlarged lymph nodes dissected those free supposed to be included with the specimen. Due to the lymphatic channels and blood supply I elected to curette the root of that arterial flow with a laparoscopic vascular height 45 mm stapler. I then incised the white line of Toldt and freed the terminal ileum that that all the way up to the liver then transected the retroperitoneal attachments of the proximal transverse colon. I then transected the gastrocolic omentum to get freedom of the middle portion of the transverse colon. Having achieved this it was quite evident there was a large amount of distention of the ascending colon and a bulky tumor mass. I felt that I had gotten significant amount dissected but that the remainder of this should be more safely performed (so then I extended the vertical incision for a total of 8 cm. The abdomen was allowed to deflate of the CO2. A wound protector was placed. The right colon was withdrawn out through the abdomen and it is been nicely mobilized. There was still adenopathy at the root of the mesentery of the mid transverse colon at the middle colic. I secured that with a right angle clamp and suture-ligated that vessel with a 0 Vicryl suture ligature. I then dissected up to the proximal midportion of the transverse colon with the Harmonic scalpel. I transected the transverse colon with a AMELIA-75 stapler. I completed the dissection of the mesentery up to the terminal ileum. It is of note that this was somewhat edematous and dilated however trying to get further freedom of the more proximal small bowel was clearly not going to be easy. I felt that the extra dissection would be certainly fraught with hazard. I transected the terminal ileum with the AMELIA-75 stapler. I placed the small bowel side to side with a large bowel place holding sutures of 4-0 silk. I made enterotomies and again inserted the 75 mm stapler and performed a functional end-to-end anastomosis by placing it side to side. Each time I fired the stapler applied the stapler and that at least a minute go by prior to firing the device allowing for compression. Having done that I closed the enterotomy sites with a TA 60 stapler using a similar delayed technique prior to final firing. There has been crotch sutures placed with 4-0 silk to help secure the terminal ileum to the transverse colon. Hemostasis was nicely intact. The bowel all appeared to be viable. I then used a portion of omentum and placed that overlying the anastomosis and secured that in place as a patch with multiple interrupted 4-0 silk sutures. Good coverage with the omentum of the anastomotic area was achieved. There was absolutely no spillage. That was dropped back within the abdomen. The wound protractor and instrumentation was removed. I reprepped I really am gowned myself after re- washing and placed sterile towels. Now with new sterile equipment closed the midline fascia with a running #1 PDS. The abdomen was reinsufflated in the intra-abdominal area inspected. The right upper quadrant was irrigated and aspirated free of excess fluid. There was evidence of some third spacing and some edema fluid there is no active bleeding the bowel all appear to be in a good positional lie appeared to be viable. At this point I felt that sufficient procedure had been performed. It is of note that prior to creating the midline incision and while he still had a laparoscope and initially I performed a bilateral tap block with the local anesthetic performed that bilaterally from the xiphoid all the way laterally under direct utilization assuring that there was muscle spilling of the intercostal musculature is. Having achieved that it was noted by anesthesia that the patient became less tachycardic and more stable seemingly consistent with pain relief. Sponge and instrument and needle counts were reported the surgeon be correct. The wounds were closed with running or interrupted subcuticular 4-0 Monocryl. Steri-Strips and Telfa and OpSite dressings applied. Specimen includes the right colon and staple lines. Blood loss 100 cc. Drains none. Beto Lucia M.D., F.A.C.S. Type of Anesthesia:: General Anesthesiologist: Yaya Stein
[2018-06-18 14:41] LABS: Bedside Glucose 153 mg/dL (70-110)
[2018-06-18] MEDS: Lactated Ringers 1,000 ML 70 ML IV (16:15)
[2018-06-18] MEDS: HYDROmorphone 0.5 MG/0.5 ML SYRINGE IV (16:19)
[2018-06-18 16:41] LABS: Bedside Glucose 153 mg/dL (70-110)
[2018-06-18] MEDS: Ketorolac 15 MG/ML Vial IV ×2 (17:31→23:33)
[2018-06-18] MEDS: Acetaminophen 500 MG Tablet 1000 MG PO ×2 (17:31→23:33)
--- NOTE | 2018-06-18 22:00 | NURSING ---
A&OX2, forgetful to time. pt withdrawal and frustrated about being in hospital. Assisted pt to stand at bedside, able to ambulate in room and out to door with X1 assist and cane. Denies flatus.
[2018-06-18] MEDS: Docusate Sodium 100 MG Capsule PO (22:07)
[2018-06-18 22:20] LABS: Bedside Glucose 93 mg/dL (70-110)
[2018-06-19 02:10] VITALS: BP 130/70; PULSE 68; RESP 18; TEMP 36.6; O2SAT 99
[2018-06-19] MEDS: oxyCODONE 5 MG Tablet PO ×3 (02:36→18:25)
[2018-06-19] MEDS: Lactated Ringers 1,000 ML 70 ML IV (03:53)
--- NOTE | 2018-06-19 04:12 | NURSING ---
Ambulating in room and out to hallway with X1 assist, SOB on exertion. BS hypoactive, pt chewing gum.
[2018-06-19] MEDS: Acetaminophen 500 MG Tablet 1000 MG PO ×3 (06:24→18:24)
[2018-06-19] MEDS: Ketorolac 15 MG/ML Vial IV ×4 (06:26→23:07)
[2018-06-19 07:01] LABS: Bedside Glucose 123 mg/dL (70-110)
[2018-06-19 07:03] LABS: Hematocrit 36.6 % (40-54); Mean Corp Hgb Conc 32.8 g/gl (32-36); Mean Corpuscular Hgb 27.5 pg (27.0-32.0); Mean Corpuscular Volume 83.9 fL (80-94); Mean Platelet Vol. 9.8 fl (6.2-12.0); Platelet Count 283 K/mm3 (150-450); RBC Distribution Width SD 46.1 fl (35.1-43.9); Red Blood Count 4.36 M/mm3 (4.6-6.2); White Blood Count 8.8 K/mm3 (4.4-11.0)
--- NOTE | 2018-06-19 07:07 | PCM.PN.SRG ---
Subjective: Pt notes incisional discomfort. No flatus. No nausea - Physical Exam General: Alert, Oriented x3 Lungs: Clear to auscultation, - - decreased excursion Abdomen: Bowel Sounds Not Present, Distended, Tender Vital Signs Temp Pulse Resp BP Pulse Ox 97.8 F 68 18 130/70 H 99 06/19/18 02:10 06/19/18 02:10 06/19/18 02:10 06/19/18 02:10 06/19/18 02:10 Oxygen Flow Rate (L/min) 2 Oxygen Delivery Method Room Air Weight: 168 lb 3.403 oz Body Mass Index (BMI) 24.1 Intake and Output for Last 24 Hours 06/17/18 06/18/18 06/19/18 23:59 23:59 23:59 Intake Total 1527 / 1527 5214 / 5214 650 / 650 Output Total 600 / 600 175 / 175 Balance 1527 / 1527 4614 / 4614 475 / 475 Laboratory Tests Past 24 Hrs 06/18/18 06/18/18 06/19/18 05:47 05:47 06:48 WBC 6.7 RBC 4.47 L Hgb 12.2 L Hct 36.7 L MCV 82.1 MCH 27.3 MCHC 33.2 RDW 14.8 H RDW Differential 43.8 Plt Count 337 MPV 9.9 Immature Gran % (Auto) 0.100 Neut % (Auto) 64.7 Lymph % (Auto) 21.2 [place] % (Auto) 10.1 H Eos % (Auto) 3.3 Baso % (Auto) 0.6 Absolute Neuts (auto) 4.4 Absolute Lymphs (auto) 1.43 Total Counted Not Reportable Sodium 138 Potassium 3.6 Chloride 108 H Carbon Dioxide 22.0 Anion Gap 8 BUN 7 Creatinine 0.85 Estim Creat Clear Calc 76.34 Est GFR (MDRD) Af Amer 113 Est GFR (MDRD) Non-Af 93 BUN/Creatinine Ratio 8.2 L Glucose 105 Calcium 8.1 L Carcinoembryonic Ag Pending 06/19/18 06/19/18 06:48 06:48 WBC Pending RBC Pending Hgb Pending Hct Pending MCV Pending MCH Pending MCHC Pending RDW Pending RDW Differential Pending Plt Count Pending MPV Immature Gran % (Auto) Neut % (Auto) Lymph % (Auto) [place] % (Auto) Eos % (Auto) Baso % (Auto) Absolute Neuts (auto) Absolute Lymphs (auto) Total Counted Sodium Pending Potassium Pending Chloride Pending Carbon Dioxide Pending Anion Gap Pending BUN Pending Creatinine Pending Estim Creat Clear Calc Est GFR (MDRD) Af Amer Pending Est GFR (MDRD) Non-Af Pending BUN/Creatinine Ratio Pending Glucose Pending Calcium Pending Carcinoembryonic Ag POC Glucose 06/19/18 06/18/18 06/18/18 06:53 22:11 16:17 POC Glucose 123 H 93 153 H 06/18/18 14:34 POC Glucose 153 H Medical Necessity - Tobacco Use Smoking Status: Current every day smoker Assessment/Plan All Active Problems (Last Reviewed 06/15/18 @ 15:00 by Jazmín Mathew) Colon cancer (Acute) Meningitis (Acute) Confusion (Acute) Mental status change (Acute) Will restart antihypertensive Pt needs to mobilize UOP marginal; likely 3rd spacing and lack of diuretic Labs pending Need to mobilize
[2018-06-19 07:08] LABS: Scan Indicated on CBC? Y/N NO
[2018-06-19 07:25] LABS: Anion Gap 11 (5-15); BUN 9 mg/dL (7-18); BUN/Creat Ratio 7.3 RATIO (10-20); Calcium,Total 7.9 mg/dL (8.5-10.1); Chloride 105 mmol/L (98-107); Creatinine, Serum 1.23 mg/dL (0.70-1.30); EST Glomerular Filtration Rate 61 mL/min (>60); Est Glom Filt Rate - Afr Amer 74 mL/min (>60); Estimated Creatinine Clearance 52.76 ml/min; Glucose 120 mg/dL (74-106); Potassium 3.9 mmol/L (3.5-5.1); Sodium Level 137 mmol/L (136-145)
[2018-06-19 07:26] VITALS: O2SAT 97
[2018-06-19] MEDS: Furosemide 20 MG/2 ML VIAL 10 MG IV (08:03)
[2018-06-19] MEDS: Lisinopril 20 MG Tablet PO (08:05)
[2018-06-19] MEDS: hydroCHLOROthiazide 25 MG Tablet PO (08:05)
[2018-06-19] MEDS: metFORMIN HCl 1,000 MG Tablet 1000 MG PO ×2 (08:05→16:14)
[2018-06-19] MEDS: Enoxaparin 40 MG/0.4 ML Syringe SC (08:06)
[2018-06-19] MEDS: Docusate Sodium 100 MG Capsule PO ×2 (08:06→21:34)
[2018-06-19 08:10] VITALS: BP 116/60; PULSE 66; RESP 16; TEMP 36.7; O2SAT 98
--- NOTE | 2018-06-19 11:40 | CASEMGMT ---
TYRESE BONILLA Face to Face with patient for initial transition planning/care coordination assessment. RN CM introduced self and role at [facility]. Patient lying in bed, alert and oriented. Patient wishes to discharge home, denies need for home health at this time. Patient states that he has cane and raised toilet seat at home. Patient states he is independent at home, lives in 2 story home with bed and bath on first floor. Patient states he has no further needs or concerns at this time. CM to follow for discharge planning needs that may arise. Disposition Plan: Patient to discharge home with family support and follow-up plans in place. Peace MCCARTHY, RN, CM
[2018-06-19 13:01] LABS: Bedside Glucose 104 mg/dL (70-110)
[2018-06-19 15:58] VITALS: BP 125/51; PULSE 71; RESP 16; TEMP 36.7; O2SAT 96
--- NOTE | 2018-06-19 16:16 | NURSING ---
PAIN 8/10, UNABLE TO GIVE THE NORCO D/T EXCEEDING TYLENOL LIMIT, OXYCODONE 1 TAB GIVEN AT THIS TIME. SUPPER ORDERED FROM TRANSITIONAL MENU BY SON. RILEY TAN YELLOW.
[2018-06-19 16:55] LABS: Bedside Glucose 114 mg/dL (70-110)
[2018-06-19 21:40] LABS: Bedside Glucose 146 mg/dL (70-110)
[2018-06-19 21:58] VITALS: BP 117/52; PULSE 74; RESP 16; TEMP 36.7; O2SAT 96
[2018-06-19] MEDS: Lactated Ringers 1,000 ML 50 ML IV (23:07)
[2018-06-20] MEDS: Acetaminophen 500 MG Tablet 1000 MG PO ×3 (00:11→13:19)
[2018-06-20 03:56] VITALS: BP 137/55; PULSE 69; RESP 18; TEMP 36.7; O2SAT 96
[2018-06-20] MEDS: 0.9% NaCl Peripheral Flush Adult/Peds IV (06:43)
[2018-06-20 06:50] LABS: Bedside Glucose 115 mg/dL (70-110)
[2018-06-20 07:38] VITALS: O2SAT 96
[2018-06-20] MEDS: Tamsulosin HCl 0.4 MG Capsule PO (08:06)
[2018-06-20] MEDS: Lisinopril 20 MG Tablet PO (08:06)
[2018-06-20] MEDS: metFORMIN HCl 1,000 MG Tablet 1000 MG PO (08:06)
[2018-06-20] MEDS: hydroCHLOROthiazide 25 MG Tablet PO (08:07)
[2018-06-20] MEDS: Enoxaparin 40 MG/0.4 ML Syringe SC (08:07)
[2018-06-20] MEDS: Docusate Sodium 100 MG Capsule PO (08:07)
[2018-06-20 09:56] VITALS: BP 144/53; PULSE 67; RESP 16; TEMP 36.6; O2SAT 95
[2018-06-20 12:15] LABS: Bedside Glucose 159 mg/dL (70-110)
--- NOTE | 2018-06-20 12:45 | PCA ---
This BEHAVIORAL HEALTH THERAPIST Tech performed urinary straight catheterization on pt. at his primary nurse's request due to urinary retention. Pt. voided 350 mL of clear yellow urine. Pt. tolerated procedure well. Nurse notified.
--- NOTE | 2018-06-20 15:13 | NURSING ---
pt straight cath @ noon for 350 clear yellow urine voided @ 1400 100 ml will check after void @ 1532
--- NOTE | 2018-06-20 17:33 | NURSING ---
d/c instructions given to pt and son at bedside, reviewed emptying oliveros and oliveros care-pt had catheter at home 1 month ago after surgery for gall bladder and pt did not feel comfortable d/c f/c at home and neither did his son because of information they recieved from other hospital-pt and son reassured that he should call thursday am to dr michael islas for nurse visit to remove catheter thursday-discussed that it should be in am so that he can trial voiding throughout day-pt aware he is to be drinking 2-3 water pitchers per day and to continue taking flomax daily starting tonight and that family should order picker/assembler Rx for flomax today at [facility]-pt aware to let office know that sanjeev was phoned into [facility] retail Rx and they are not open today but that pt has not needed anything for pain control except scehduled tylenol and told him about the regime he should follow for pain control-pt voices understanding
--- NOTE | 2018-06-20 17:39 | NURSING ---
dr engel who is apron man, was updated on what transpired documented in previous note
[2018-06-21 08:48] LABS: Carcinoembryonic Antigen 6.3 ng/mL (0.0-4.7)
--- NOTE | 2018-06-22 11:50 | PCM.DC.SUM ---
Discharge Date and Diagnosis Date of Admission: 06/17/18 Date of Discharge: 06/20/18 - Primary Discharge Diagnosis Obstructing colon cancer proximal transverse colon - Secondary Discharge Diagnosis Chronic Problems (Last Reviewed 06/15/18 @ 15:00 by Jazmín Mathew) Tobacco abuse (Chronic) Hypertension (Chronic) Type 2 diabetes mellitus (Chronic) Hospital Course and Treatment Operations: colectomy - Laparoscopic mobilization of the right colon with conversion to an open incision and right colectomy Procedures: Colonoscopy Summary of Care Provided: The patient is a 77 year old M who presents with a near obstructing colon cancer. Dr. Lucia performed a colonoscopy on 06/17 which noted The digital rectal exam findings include non-thrombosed external hemorrhoids, non-thrombosed internal hemorrhoids, internal hemorrhoids that prolapse with straining, but spontaneously regress to the resting position (Grade II) and enlarged prostate. A moderate amount of stool was found in the entire colon, interfering with visualization. A obstructiong mass noted.A obstructing mass was found at the hepatic flexure. Patient was then prepped for a colectomy the following day. Dr. Lucia performed a Laparoscopic mobilization of the right colon with conversion to an open incision and right colectomy on 06/18/18. Patient tolerated the procedure well. Patient had an uneventful hospitalization. He was unable to urinate and was discharged home with a Morales. Upon discharge, patient notes minimal amount of abdominal discomfort. He denies nausea, vomiting, fever. He is tolerating his current diet. He is to contact our office to have Morales catheter removed on Thursday or Thursday. - Physical Exam General: Alert, Oriented x3, Cooperative Abdomen: Soft, Hypoactive Bowel Sounds, Distended, Obese, Tender - mild generalized, - - Incisions c/d/i. No erythema or infection noted Vital Signs Temp Pulse Resp BP Pulse Ox 97.9 F 67 16 144/53 H 95 06/20/18 09:56 06/20/18 09:56 06/20/18 09:56 06/20/18 09:56 06/20/18 09:56 Oxygen Flow Rate (L/min) 2 Oxygen Delivery Method Room Air Weight: 168 lb 3.403 oz Body Mass Index (BMI) 24.1 Intake and Output for Last 24 Hours 01/27/19 01/28/19 01/29/19 23:59 23:59 23:59 Intake Total 1809 / 1809 Output Total 680 / 680 Balance 1129 / 1129 Discharge Diet: - - Continue on transitional diet until follow-up in office Discharge Activity: May Not Drive - 5 days May shower in (days): 1 Call your doctor if your incision/area has: Continuous Slow Oozing, Sudden Increased Bleeding, Increased Pain/ Swelling, Increased Redness, Foul Smelling Discharge, Swelling at the incision site Suture Line Care: Avoid Pulling/Pushing, Avoid Pinching/Bending Remove Dressing in (days):: 2 - Leave steri-strips intact Cleanse incision/area with: Soap & Water Home Medications: Medications to take at Discharge Insulin Aspart [Novolog Flexpen] 6 units SUBCUT BIDCM 06/25/17 Insulin Glargine,Hum.rec.anlog [Lantus] 25 unit SQ QHS 06/25/17 Lisinopril/Hydrochlorothiazide [Zestoretic 20-25 mg Tablet] 1 ea PO DAILY 06/25/17 Metformin HCl [Glucophage] 1,000 mg PO BIDCM 06/25/17 Primary Care Physician: Delano Garcia MD [Primary Care Provider] - Please Follow Up With: Beto Lucia MD - [phone] When: 10 days Disposition: Home Minutes spent on discharge:: 25 Patient Condition:: Stable Medical Necessity - Tobacco Use Smoking Status: Current every day smoker Meaningful Use Info Meaningful Use Diagnoses (Choose all that apply): None applicable Code Visit Inpatient E&M: 18727 Disch Hosp
== END 2018-06-20 17:00 | disposition home or self-care (01) | DRG 331 ==
PROVIDERS: Anesthesiology; Physician Assistant; Admitting Provider Surgery; Family Provider Family Medicine; PCP Family Medicine; Referring Provider Surgery; Visit Provider Surgery
PROC: 0DJD8ZZ Inspection of Lower Intestinal Tract, Via Natural or Artificial Opening Endoscopic (ICD-10-PCS; CPT 45378; principal; 2018-06-17 10:25)
PROC: 0DTF0ZZ Resection of Right Large Intestine, Open Approach (ICD-10-PCS; CPT 44205; principal; 2018-06-18 10:40)
DX: C18.4 Malignant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 transverse colon (principal); K64.8 Other hemorrhoids; K64.4 Residual hemorrhoidal skin tags; Z53.31 Laparoscopic surgical procedure converted to open procedure; Z90.49 Acquired absence of other specified parts of digestive tract; E11.9 Type 2 diabetes mellitus without complications; I10 Essential (primary) hypertension; N40.0 Benign prostatic hyperplasia without lower urinary tract symptoms; Z79.4 Long term (current) use of insulin; F17.210 Nicotine dependence, cigarettes, uncomplicated
CPT/HCPCS: 36415; 74177; 80048; 82378; 82962; 83036; 85025; 85027; 88309; 88341; 88342; 93005; 97803; 99406; J7050; J7120; Q9967; A4216; J1940; J2405

== ENCOUNTER → 2018-08-11 12:52 | Outpatient (CLI) | payer MEDICARE, OTHER, SELFPAY ==
[2018-07-06 10:31] VITALS: BMI 24.4
--- NOTE | 2018-08-11 12:55 | ART_ITS ---
Reason For Study: BRUIT Procedure A bilateral lower extremity continuous wave Doppler with analog waveform analysis,segmental pressures,and ankle brachial indexes without exercise. Left Segmental Pressures Left brachial= 125mmHg. Left thigh = 158mmHg. Left calf = 109mmHg. Left posterior tibial artery = 68mmHg. Left dorsalis pedis artery = 61mmHg. Left digit = 0 mmHg. Right Segmental Pressures Right brachial= 121mmHg. Right thigh = 97mmHg. Right calf = 81mmHg. Right posterior tibial artery = 82mmHg. Right dorsalis pedis artery = 71mmHg. Right digit = 50 mmHg. Indices The right ankle brachial index by the dorsalis pedis is .57. The right ankle brachial index by the posterior tibial artery is .66. The right digital-brachial index is .4. The left ankle brachial index by the dorsalis pedis is .49. The left ankle brachial index by the posterior tibial artery is .54. The left digital-brachial index is 0. Interpretation Summary Abnormal bilateral lower extremity arterial exam at rest. Ileo-femoral inflow disease on the right with likely additional superficial femoral artery occlusive disease well within the range of vascular claudication. Abnormal digital indices consistent with rest pain Likely severe stenosis or occlusion of the left superficial femoral artery within the range of vascular claudication. Flatten digital waveform suggestive of small vessel disease/severe ischemia. Ordering Physician: Dorys Bojorquez Referring Physician: Dorys Bojorquez Performed By: MARK HAWKINS RDCS
== END ==
PROVIDERS: Family Provider Family Medicine; PCP Family Medicine; Referring Provider Podiatrist Foot & Ankle Surgery; Visit Provider Podiatrist Foot & Ankle Surgery
DX: R09.89 Other specified symptoms and signs involving the circulatory and respiratory systems (principal); I89.8 Other specified noninfective disorders of lymphatic vessels and lymph nodes
CPT/HCPCS: 93923

== ENCOUNTER → 2018-09-14 14:20 | Outpatient (CLI) | payer MEDICARE, OTHER, SELFPAY ==
[2018-09-14 13:59] VITALS: BMI 24.4
[2018-09-14 14:59] LABS: Anion Gap 3 (5-15); BUN 15 mg/dL (7-18); BUN/Creat Ratio 13.9 RATIO (10-20); Calcium,Total 8.9 mg/dL (8.5-10.1); Chloride 107 mmol/L (98-107); Creatinine, Serum 1.08 mg/dL (0.70-1.30); EST Glomerular Filtration Rate 71 mL/min (>60); Est Glom Filt Rate - Afr Amer 85 mL/min (>60); Glucose 143 mg/dL (74-106); Potassium 3.9 mmol/L (3.5-5.1); Sodium Level 138 mmol/L (136-145)
== END ==
PROVIDERS: Physician Assistant; Family Provider Family Medicine; PCP Family Medicine; Visit Provider Surgery
DX: I73.9 Peripheral vascular disease, unspecified (principal)
CPT/HCPCS: 36415; 80048

== ENCOUNTER 2018-09-20 06:39 | Day surgery (SDC) | payer MEDICARE, OTHER, SELFPAY ==
[2018-08-17 13:39] VITALS: BMI 24.4
--- NOTE | 2018-08-24 06:17 | HP_ITS ---
Intake Vital Signs 08/17/18 Body Mass Index (BMI) 24.4 08/17/18 Height 5 ft 10 in 08/17/18 Weight: 188 lb 08/17/18 Body Mass Index (BMI) 26.9 08/17/18 Blood Pressure 150/74 H 08/17/18 Blood Pressure Location Rt brachial 08/17/18 Blood Pressure Position Sitting 08/17/18 Respiratory Rate 20 H 08/17/18 Pulse Rate 74 08/17/18 Pulse Source Monitor 08/17/18 Temperature 97.8 F 08/17/18 Temperature Source Oral 08/17/18 Pulse Ox 99 08/17/18 Oxygen Delivery Method room air Intake Visit Reasons: PAD, U/S @ [facility] Chief Complaint: Colon cancer, new diagnosis Pit Clerk Required: No Is patient in pain?: No Allergies No Known Allergies Allergy (Verified 08/17/18 13:38) Medications Insulin Aspart [Novolog Flexpen] 6 units SUBCUT BIDCM 06/25/17 [History Confirmed 08/17/18] Insulin Glargine,Hum.rec.anlog [Lantus] 25 unit SQ QHS 06/25/17 [History Confirmed 08/17/18] Lisinopril/Hydrochlorothiazide [Zestoretic 20-25 mg Tablet] 1 ea PO DAILY 06/25/17 [History Confirmed 08/17/18] Metformin HCl [Glucophage] 1,000 mg PO BIDCM 06/25/17 [History Confirmed 08/17/18] [facility] Medical History Colon cancer (Acute) Meningitis (Acute) Confusion (Acute) Mental status change (Acute) Tobacco abuse (Chronic) Hypertension (Chronic) Type 2 diabetes mellitus (Chronic) Surgical History History of colectomy (Acute ~05/2018) History of laparoscopic cholecystectomy (Acute) Family History Mother Cancer stomach Father Diabetes Social History Smoking Status: Current every day smoker tobacco type: cigarettes alcohol intake: never substance use type: does not use HPI HPI Surgical H&P: Yes HPI: LANNY OLIVIER, is a 77 M who presents to the office today for surgical consultation regarding an ingrown left great toenail and peripheral vascular occlusive disease. This consultation has nothing to do about his surgical treatment for his colon cancer this is a separate and completely distinguished consultation. The patient is referred by his nurse practitioner manager Dr. Dorys Bojorquez a written copy of my surgical consult and recommendations will be returned to her. The patient notes many years of a cool feet. Claims that 5 years ago he incurred some frostbite which he stated took an extraordinary long period of time to resolve. On August 11, 2018 at the [facility] he had resting PVRs. The right ABIs were 0.570.66 with a digital index of 0.4. The left ABIs were 0.49 and 0.54 with a digital index of 0. 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 Unfortunately he continues to smoke cigarettes. He has no interest in stopping. He claims he is able to walk 100 yards but then develops a generalized Weakness ROS General General: Yes weight change; no appetite, fatigue, colon cancer, breast cancer or weakness HEENT HEENT: No difficulty swallowing, eye injury, eye surgery, swollen glands or hoarseness Endo Endocrine: Yes diabetes mellitus; no thyroid disease, thyroid cancer, Hair loss, heat intolerance or cold intolerance Skin Skin: No rash or changing moles Breast Breast: No left breast lump, right breast lump, nipple discharge, breast pain, abnormal mammogram, abnormal US or breast enlargement Musc Musculoskeletal: Yes arthritis; no back problems, rheumatoid arthritis, gout or joint pain Cardio Cardiovascular: Yes high blood pressure; no murmur, pacemaker, heart disease, atrial fibrillation, heart attack, heart stent, palpitations, shortness of breat with exertion or chest pain Psych Psychiatric: No depression, anxiety or hearing voices Resp Respiratory: No shortness of breath, No sleep apnea, No cough, No COPD, No asthma, No emphysema, No wheezing Gastro Gastrointestinal: No abdominal pain, No nausea or vomiting, No diarrhea, No constipation, No blood in stool, No acid reflux, No hemorrhoids, No ulcers, No gallbladder problem, No black,tarry stools Sebastián Hematologic: No blood thinners, No blood disorders, No bleeding, No anemia, No blood clots Neuro Neurologic: No system reviewed and no additional complaints, except as docu, No as per HPI, No abnormal walking, No abnormal hearing, No abnormal movements, No abnormal speech, No behavioral changes, No burning sensations, No confusion, No seizure-like activity, No unsteadiness, No dizziness, No localized weakness, No frequent falls, No headache(s), No lack of coordination, No loss of vision, No memory loss, No numbness, No other visual disturbances, No radiating pain, No restless legs, No sensory deficit, No fainting, No tingling, No tremor(s), No weakness, No other Exam Const General: cooperative Nutritional Appearance: average body habitus Orientation: alert, awake [facility] Head: normal to inspection Eyes General: appearance normal, both eyes and all related structures Chest Breast Palpation: No nipple discharge Resp Effort & Inspection: normal respiratory effort Auscultation: clear to auscultation bilaterally Cardio Rate: regular rate Rhythm: regular rhythm Heart Sounds: no murmurs Other: Bilateral brachials are 3+ bilateral radial 3+ bilateral carotids 3+ bilateral femorals 3+ bilateral popliteals and DPs and PTs are absent GI Palpation: soft, no hepatosplenomegaly Musc Cervical Spine: normal cervical lordosis Neuro General: alert Extrem Other: Elevation pallor and dependent rubor noted bilaterally. Hyperemic. Cool feet. Hypertrophic nails. Hair loss. Partially avulsed left great toenail Psych Affect: normal affect Assessment & Plan Problems 1. PAD (peripheral artery disease) I73.9 Plan 77-year-old gentleman is doing well status post laparoscopic right colectomy for obstructing colon cancer. I am very pleased with his progress in that regard. This is an appointment is a completely separate issue. He has bilateral lower extremity peripheral vascular occlusive disease with a partially avulsed left great toenail. Further podiatry intervention is a possibility. Findings would suggest bilateral superficial femoral artery occlusions. He is well within the range of vascular claudication with significant digital abnormality consistent with distal small vessel disease as well. He is a long-term diabetic. He continues to smoke cigarettes. I have offered him a abdominal pelvic left lower extremity arteriogram via retrograde right common femoral artery approach. With his son present I discussed technique, benefit, risks and alternatives. We would need to check and maximize renal function pre-procedure. He has had an opting to ask and have questions answered. He is aware that there are no guarantees of success. We will schedule and proceed at his discretion. We will utilize carbon dioxide if needed pending his renal function. I very much appreciate the kind opportunity of assisting with his surgical care. CC:Dr Dorys Bojorquez and Dr Delano Lucia M.D., F.A.C.S. Coding Level of Care Code Off vis,est,level 4 Diagnoses PAD (peripheral artery disease) I73.9 Comment Unrelated post op evaluation
[2018-09-14 13:59] VITALS: BMI 24.4
[2018-09-16 07:51] VITALS: BMI 27.2
[2018-09-20 07:09] LABS: Hematocrit 44.2 % (40-54); Hemoglobin 14.7 g/dl (13.0-16.5); Mean Corp Hgb Conc 33.3 g/gl (32-36); Mean Corpuscular Hgb 28.2 pg (27.0-32.0); Mean Corpuscular Volume 84.7 fL (80-94); Mean Platelet Vol. 10.4 fl (6.2-12.0); Platelet Count 272 K/mm3 (150-450); RBC Distribution Width SD 43.3 fl (35.1-43.9); Red Blood Count 5.22 M/mm3 (4.6-6.2); White Blood Count 10.9 K/mm3 (4.4-11.0)
[2018-09-20 07:12] LABS: Scan Indicated on CBC? Y/N NO
[2018-09-20 10:06] LABS: ACT Activated Clotting Time 208 sec (74-137)
[2018-09-20 10:06] LABS: ACT Activated Clotting Time 213 sec (74-137)
[2018-09-20 10:06] LABS: ACT Activated Clotting Time 197 sec (74-137)
[2018-09-20 10:06] LABS: ACT Activated Clotting Time 125 sec (74-137)
--- NOTE | 2018-09-20 10:28 | OP.PCM_ITS ---
Problem List (1) PAD (peripheral artery disease) Status: Acute Report of Operation Date of Procedure: 09/20/18 Pre-Operative Diagnosis: Bilateral lower extremity quality of life limiting vascular claudication Post-Operative Diagnosis: Same Surgery/Procedure Performed:: Abdominal pelvic left lower extremity arteriogram. Left popliteal 5 x 80 mm ever cross angioplasty. Left distal superficial femoral artery 6 x 20 mm Powerflex angioplasty. Left Ayden's canal superficial femoral artery 6 x 20 mm Powerflex angioplasty. Left proximal superficial femoral artery 6 x 20 mm Powerflex angioplasty. Left proximal external iliac 9 x 20 mm [place] angioplasty Description of Surgical Findings:: Timeout and informed consent was obtained. 77-year-old gentleman was taken to special procedure lab placed upon the table. Throughout the procedure and aliquots he received a total of 200 mcg of fentanyl and 5 mg of Versed as intravenous sedation. The right groin was sterilely prepped and draped. Ultrasound was used to identify the right common femoral artery. Under ultrasound guidance 2% lidocaine was instilled. Micropuncture needle was inserted under ultrasound guidance. Micropuncture wire. Micropuncture sheath. An 035 J-wire was used to place a 5 Lithuanian short sheath dilator. An 035 angled Glidewire was used to place a 5 Lithuanian flush catheter into the abdominal aorta at the level of the renal arteries. Using Visipaque contrast the rate of 15 cc a second for 15 cc an AP aortogram was obtained. Then utilizing the flush catheter in the O35 Glidewire gain access to the left external iliac. I exchanged out for a 035 quick cross catheter. Static views of the left lower extremity were obtained. At this point I placed an 035 Magic wire. I removed the short 5 Lithuanian sheath and placed a 70 cm long 6 Lithuanian destination sheath. At this point the patient received 8000 units of heparin. Based upon ACT measurements he received a total of 11,000 units of heparin for the entire procedure. I advanced the 035 quick cross catheter down to the suprageniculate popliteal. I then exchanged out for 018 quick cross catheter. I utilized a connect wire and was able to get through the completely occluded popliteal but I could not get true lumen. I attempted getting true lumen with a master pilot 150 wire. That was not successful so then I exchanged back out for an 035 quick cross catheter. I used an 035 angled Glidewire and utilizing that combination I was able to get through the occluded popliteal and back into the true lumen of the infrageniculate popliteal. The 035 quick cross catheter could be advanced blood could be aspirated and I was able to obtain a angiogram demonstrating back in the true lumen infrageniculate popliteal with patent left anterior tibial posterior tibial and a diminutive peroneal. Having achieved that I left the [address] I placed a 5 x 80 mm ever cross balloon. Balloon angioplasty of the entire popliteal area was performed to 14 yasmin for 3 minutes. I readjusted the balloon slightly and reinflated it. I then obtained a through the sheath image demonstrating now complete resolution of the area of complete obstruction of the popliteal. I then exchanged out for a 6 x 20 m PowerFlex balloon and 2 areas involving the distal left superficial femoral artery were treated with balloon angioplasty. Follow-up images demonstrated improvement. I then withdrew the balloon to the proximal left superficial femoral artery and that also was treated with by 6 x 20 mm Powerflex balloon. I then withdrew the sheath over the balloon and took angled views of the pelvis identifying the very proximal portion of the left external iliac. I treated that area with a 9 x 20 mm [place] balloon. Hand-injection views now demonstrated improvement on all occasions. The sheath was withdrawn over the balloon. I exchanged out for a short 6 Lithuanian sheath. I inserted the minx device inflated the balloon withdrew the device and injected the material let it sit for 2 minutes and then remove the device additional pressure was gently held hemostasis was intact. The left foot had resumption of dopplerable PT and DP signals. Blood loss was minimal no apparent complications and he tolerated the procedure well. Images demonstrate patent bilateral renal arteries with diffuse irregular disease involving the abdominal aorta bilateral common iliacs. The small ulceration involving the left common iliac. There is 60% stenosis of the proximal left external iliac artery and 60% stenosis of the right internal iliac artery. There is diffuse irregularity involving the entire left superficial femoral artery. The proximal left superficial femoral artery there is a focal area of 60% stenosis over approximately 2 cm. In the distal left superficial femoral artery there is an area of 70% stenosis over 2 cm. Slightly more distal to this there is an additional area of 70% stenosis over a centimeter. The left popliteal artery is completely occluded from the superior geniculate site down to just the distal intervention like a popliteal where the takeoff of the anterior tibial and tibioperoneal trunk is identified. The is disease of the proximal left peroneal with a diminutive left peroneal. Left posterior tibial is the dominant vessel to the ankle into the foot. The left anterior tibial is patent to the ankle and dorsum of the foot though is much more diminutive. Subsequent to the angioplasty of all sites there now is improved straight in- line flow on all occasion. Impression Successfully treated totally occluded left popliteal. Three-vessel runoff to the left foot with the posterior tibial being dominant the peroneal being very small in the anterior tibial being diminutive by the ankle. Irregular left superficial femoral artery throughout with 3 areas of improved in-line flow subsequent to angioplasty. Improved proximal left external iliac subsequent to angioplasty. Beto Lucia M.D., F.A.C.S. Type of Anesthesia:: IV Sedation, Local
== END 2018-09-20 14:45 | disposition home or self-care (01) ==
PROVIDERS: Family Provider Family Medicine; PCP Family Medicine; Referring Provider Surgery; Visit Provider Surgery
DX: I73.9 Peripheral vascular disease, unspecified (principal); C18.9 Malignant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 colon, unspecified; E11.9 Type 2 diabetes mellitus without complications; I10 Essential (primary) hypertension; F17.210 Nicotine dependence, cigarettes, uncomplicated; Z79.4 Long term (current) use of insulin; Z79.02 Long term (current) use of antithrombotics/antiplatelets; Z79.899 Other long term (current) drug therapy; Z90.49 Acquired absence of other specified parts of digestive tract
CPT/HCPCS: 36200; 36245; 36415; 37220; 37224; 75625; 75710; 76937; 85027; 85347; 99152; 99153; C1760; J7030; J7040; Q9967; C1725; C1769; C1887; C1894

== ENCOUNTER → 2018-10-26 11:47 | Outpatient (CLI) | payer MEDICARE, OTHER, SELFPAY ==
[2018-10-05 13:35] VITALS: BMI 27.2
--- NOTE | 2018-10-26 12:29 | CT_ITS ---
STUDY: LOW DOSE CT LUNG CANCER SCREENING REASON FOR EXAM: Male, 77 years old. 45 pack-year smoking history. RADIATION DOSAGE (If Supplied By Facility): CTDIvol = ( 2.55 ) mGy, DLP = ( 75.31 ) mGycm TECHNIQUE: No contrast was administered. Low dose technique was utilized (average mAS-38 and kVp 120). 1.25 mm axial source images with a slice interval of 1.25-mm were reconstructed in lung windows. 2.5 mm axial source images with a slice interval of 2.5-mm were reconstructed in lung windows. 5.0 mm axial source images with a slice interval of 5.0-mm were reconstructed in soft tissue windows. Nodule measured using lung windows on PACS and/or independent workstation with automated measurement of minimum and maximum diameter. Nodule measurement reported as average diameter rounded to the nearest whole number. Growth is defined as an increase ins size of greater than 1.5 mm. COMPARISON: Comparison is made with prior chest radiograph dated June 25, 2017. NODULES: No suspicious nodules are seen. Mild degree of increased markings at the lung bases suggestive of a mild atelectasis and/or scarring. Aorta: Calcified atherosclerotic plaques of the aortic arch and descending thoracic aorta. Coronary arteries: Coronary artery calcification. Mediastinal nodes: Calcified right hilar lymph nodes and precarinal lymph nodes. Other chest and abdominal findings: Degenerative changes of the spine. CT/Low Dose CT Lung Screening IMPRESSION: Lung-RADS category 2 - Continue annual screening with LDCT in 12 months. IMPORTANT NOTES FOR USE: ACR Lung-RADS Version 1.0 Assessment Categories Release Date: September 19, 2013 Category: Coded 0-4 bases on nodule(s) with highest degree of suspicion. Negative screen is defined as categories 1 and 2; a positive screen is defined as categories 3 and 4. Category 3 and 4A nodules that are unchanged on interval CT should be coded as category 2, and individuals returned to screening in 12 months. Category 4X: Category 3 or 4 nodules with additional imaging findings that increase the suspicion of lung cancer, such as spiculation, GGN that doubles in size in 1 year, enlarged lymph notes, etc. Category Modifiers: S (significant finding unrelated to lung cancer) and C (prior history of treated lung cancer) may be added to the 0-4 Lung-RADS Electronically Signed: You Erwin, at 13:26 EDT , Service support ,
== END ==
PROVIDERS: Family Provider Family Medicine; PCP Family Medicine; Referring Provider Nurse Practitioner Family; Visit Provider Nurse Practitioner Family
DX: Z12.2 Encounter for screening for malignant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 respiratory organs (principal); Z87.891 Personal history of nicotine dependence
CPT/HCPCS: G0297

== ENCOUNTER 2019-01-11 05:56 | Day surgery (SDC) | payer MEDICARE, OTHER, SELFPAY ==
[2018-12-23 09:32] VITALS: BMI 27.1
--- NOTE | 2018-12-23 09:52 | HP_ITS ---
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 Is patient in pain?: No Allergies No Known Allergies Allergy (Verified 12/23/18 09:31) Medications Insulin Aspart [Novolog Flexpen] 6 units SUBCUT BIDCM 06/25/17 [History Confirmed 12/23/18] Insulin Glargine,Hum.rec.anlog [Lantus] 25 unit SQ QHS 06/25/17 [History Confirmed 12/23/18] Lisinopril/Hydrochlorothiazide [Zestoretic 20-25 mg Tablet] 1 ea PO DAILY 06/25/17 [History Confirmed 12/23/18] metFORMIN HCl [Glucophage] 1,000 mg PO BIDCM 06/25/17 [History Confirmed 12/23/18] aspirin 81 mg tablet,delayed release 81 mg PO DAILY 12/23/18 [History Confirmed 12/23/18] PFSH Medical History PAD (peripheral artery disease) (Acute) Colon cancer (Acute) Meningitis (Acute) Confusion (Acute) Mental status change (Acute) Tobacco abuse (Chronic) Hypertension (Chronic) Type 2 diabetes mellitus (Chronic) Surgical History hx of APLL (Acute) History of colonoscopy (Acute) History of laparoscopic cholecystectomy (Acute) History of colectomy (Acute ~05/2018) Family History Mother Cancer stomach Father Diabetes Social History (Updated 12/23/18 @ 09:53 by Beto Lucia MD) Smoking Status: Current every day smoker tobacco type: cigarettes Tobacco: How many years used: 45 Electronic Cigarette Use: not used second hand exposure: Yes quit status: has quit before alcohol intake: never substance use type: does not use HPI HPI HPI: LANNY OLIVIER, is a 78 M who presents to the office today for HPI HPI Surgical H&P: Yes HPI: LANNY OLIVIER, is a 78 M who presents to the office today for ongoing surgical follow-up regarding his initial presentation with an obstructing right colon cancer. June 17, 2018 I attempted a colonoscopy however the bowel prep was very poor. He subsequently under went a right colectomy. Amazingly no lymph node involvement. He currently denies bright red blood per rectum or melena. He has regained 30 pounds in weight that he lost throughout his preoperative and perioperative ordeal. He also has bilateral lower extremity peripheral vascular occlusive disease. I attempted a abdominal pelvic left lower extremity arteriogram on September 20, 2018 with multi segment endovascular angioplasty. He states that he did not improve his burning numbness foot discomfort which he similarly has on the right. He is felt likely to have small vessel disease and neuropathic issues. Pathology demonstrates 1 [facility]ATOR[facility]URG[facility] [id number] [place], [place] [phone] Page 1of 2The contents of this transmission are privileged, confidential and exempt from disclosureunder applicable law. If you have received this information in error, call . LANNY OLIVIER MR# [id number]: LANNY OLIVIER/Sex: 77/[address]:Rea FINNEGAN[facility] [id number] Unit #: [id number]: MS3DOB: 2Status:DIS INFacility:[facility] Spec# :[id number] Spec Date: 06/18/18[facility] Dr[facility]a [facility]NE[facility] Type: COL.OPERATION: Laparoscopic right hemicolectomyPRE-OP DIAGNOSIS: Malignant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 hepatic flexureTISSUE SUBMITTED: Right colon and staple lineMICROSCOPIC DIAGNOSIS Right colon, right hemicolectomy:Invasive adenocarcinoma.See cancer checklist below.AM:yaa 06/23/18COMMENTCOLON CANCER SUMMARY:Specimen ?right colonProcedure ?right hemicolectomy Tumor site ?right colonTumor size ?8.8 x 4.5 x 1.5 cmMacroscopic tumor perforation ?not identified Histologic type ?adenocarcinoma with mucinous features (35%)Histologic grade ?low grade (moderately differentiated)Microscopic tumor extension ?tumor invades through muscularis propria and into subserosal adipose tissue. The serosa is uninvolved by carcinoma.Margins:Proximal margin ?uninvolved by carcinomaDistal margin - uninvolved by carcinomaCircumferential margin -uninvolved by carcinomaTreatment effect -unknownLymph-Vascular invasion ?not identified Perineural invasion -not identifiedTumor deposits ?not presentLymph nodes:Number of lymph nodes examined -31Number of lymph nodes involved -0Distant metastasis -unknownAncillary studies: Microsatellite Instability Study:Negative (no loss of mismatch protein; no microsatellite instability detected).Immunohistochemistry Studies for Mismatch Repair Proteins: ROS General General: Yes weight change; no appetite, fatigue, colon cancer, breast cancer or weakness HEENT HEENT: No difficulty swallowing, eye injury, eye surgery, swollen glands or hoarseness Endo Endocrine: Yes diabetes mellitus; no thyroid disease, thyroid cancer, Hair loss, heat intolerance or cold intolerance Skin Skin: No rash or changing moles Breast Breast: No left breast lump, right breast lump, nipple discharge, breast pain, abnormal mammogram, abnormal US or breast enlargement Musc Musculoskeletal: Yes arthritis; no back problems, rheumatoid arthritis, gout or joint pain Cardio Cardiovascular: Yes high blood pressure; no murmur, pacemaker, heart disease, atrial fibrillation, heart attack, heart stent, palpitations, shortness of breat with exertion or chest pain Psych Psychiatric: No depression, anxiety or hearing voices Resp Respiratory: No shortness of breath, No sleep apnea, No cough, No COPD, No asthma, No emphysema, No wheezing Gastro Gastrointestinal: No abdominal pain, No nausea or vomiting, No diarrhea, No constipation, No blood in stool, No acid reflux, No hemorrhoids, No ulcers, No gallbladder problem, No black,tarry stools Sebastián Hematologic: No blood thinners, No blood disorders, No bleeding, No anemia, No blood clots Neuro Neurologic: No weakness Exam Const General: cooperative, other (Very heavy odor of tobacco) Nutritional Appearance: average body habitus Orientation: alert, awake Other: Patient clearly appears to be heavier since his previous visits HENMT Head: normal to inspection Chest Breast Palpation: No nipple discharge Other: Increased anterior posterior diameter Resp Effort & Inspection: normal respiratory effort Auscultation: clear to auscultation bilaterally Cardio Rate: regular rate Rhythm: regular rhythm Heart Sounds: no murmurs GI Palpation: soft, no hepatosplenomegaly Auscultation: normal bowel sounds Other: Soft, nontender, well-healed vertical epigastric incision with no palpable fascial defect. No tenderness Neuro Cognition: normal cognition Extrem General: no calf tenderness bilaterally Psych Affect: normal affect Assessment & Plan Problems 1. Personal history of colon cancer Z85.038 Plan 78-year-old gentleman. He has a personal history of obstructing colon cancer which I resected for him June 23, 2018. On June 17, 2018 an attempt was made at a preoperative colonoscopy however the bowel prep was very poor and the left colon could not be inspected. I have recommended the patient that we reattempt a colonoscopy with possible biopsy or polypectomy as indicated. He is aware of the technique, benefit, risk and alternatives. For his lower extremity peripheral vascular occlusive disease he has recently completed his clopidogrel therapy. He will remain on low-dose 81 mg aspirin daily. I have discussed technique, benefit, risk and alternatives. We will schedule and proceed at his discretion. cc: Dr Martínez Lucia M.D., F.A.C.S. Coding Level of Care Code Off vis,est,level 3 Diagnoses Personal history of colon cancer Z85.038 12/23/18 0953 <Electronically signed by Beto arevalo MD> Date _ Beto Lucia MD I have re-examined the patient. There are no clinical changes since date of exam.
[2019-01-11] VITALS (9 sets, daily range): BP systolic 89–134; BP diastolic 54–110; PULSE 67–80; RESP 14–16; TEMP 36.3–37.2; O2SAT 92–100; BMI 29.0
[2019-01-11] MEDS: Lactated Ringers 1,000 ML 100 ML IV (06:45)
[2019-01-11 06:51] LABS: Bedside Glucose 137 mg/dL (70-110)
--- NOTE | 2019-01-11 07:00 | COLBX_PTH ---
PATIENT: LANNY OLIVIER LOC: EN U#:[id number] AGE/SX: 78/M ROOM: RE01/11/[address]: Dr. Beto Lucia MD : 1940 BED: DIS: 01/11/2019 SPEC #: [id number] RECD: 01/11/19 11:38 STATUS: BERTRAM MICHI #: [id number] STEPHAN: 01/11/19 07:[address]: Beto Lucia DEPT: SURGICAL PATHOLOGY RECD BY: Lazaro Gary ENTERED: 01/11/19 12:30 SP TYPE: COLON BX OT DR: Dr. Delano Garcia MD Tissues: Descending colon Procedures: Surgery Specimen Level IV HEADER OPERATION: Colonoscopy (MOD) PRE-OP DIAGNOSIS: Obstructing colon CA TISSUE SUBMITTED: Descending colon polyp biopsy MICROSCOPIC DIAGNOSIS Descending colon polyp, biopsy: Tubular adenoma. SJ:yaa 01/12/19 COMMENT Please make reference to previous specimen ([id number]) right colon, hemicolectomy with diagnosis of invasive adenocarcinoma. MICROSCOPIC DESCRIPTION Slides are reviewed. GROSS DESCRIPTION Received in fixative is one container labeled with the patient's name and designated descending colon polyp biopsy. The specimen consists of two irregular fragments of light mane soft tissue that in aggregate measure 0.8 x 0.4 x 0.1 cm. The specimen is totally submitted in one cassette. / SJ:yaa 01/11/19 TC:1 CPT: 82229
--- NOTE | 2019-01-11 07:37 | OP.ENDO_ITS ---
01/11/2019 Delano Garcia MD Re : Colonoscopy procedure for Wallace Martel Dear Dr. Garcia This procedure was performed on Friday, January 11, 2019. My impressions and recommendations are as follows: Impressions : - Preparation of the colon was fair. - Non-thrombosed external hemorrhoids, non-thrombosed internal hemorrhoids, internal hemorrhoids that prolapse with straining, but spontaneously regress to the resting position (Grade II) and enlarged prostate found on digital rectal exam. - One 5 mm polyp in the descending colon, removed with a cold biopsy forceps. Resected and retrieved. - Patent functional end-to-end ileo-colonic anastomosis, characterized by healthy appearing mucosa. Recommendations : - Discharge patient to home. - Resume previous diet. - Continue present medications. - Repeat colonoscopy in 3 years for surveillance. - Telephone my office for pathology results in 1 week. My findings are described in the full procedure note, which is enclosed. If I can be of further assistance, please feel free to contact me at Doctor phone number(s): Work: . Sincerely, Beto Lucia MD 01/11/2019 7:36:41 AM This report has been signed electronically.
== END 2019-01-11 09:00 | disposition home or self-care (01) ==
LOC: EN 05:58 → AC 06:00
PROVIDERS: Family Provider Family Medicine; PCP Family Medicine; Referring Provider Family Medicine; Visit Provider Surgery
PROC: 0DJD8ZZ Inspection of Lower Intestinal Tract, Via Natural or Artificial Opening Endoscopic (ICD-10-PCS; CPT 45378; principal; 2019-01-11 06:55)
DX: Z12.11 Encounter for screening for malignant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 colon (principal); D12.4 Benign neoplasm of descending colon; K64.1 Second degree hemorrhoids; K64.4 Residual hemorrhoidal skin tags; E11.9 Type 2 diabetes mellitus without complications; I10 Essential (primary) hypertension; N40.0 Benign prostatic hyperplasia without lower urinary tract symptoms; I73.9 Peripheral vascular disease, unspecified; F17.210 Nicotine dependence, cigarettes, uncomplicated; Z79.4 Long term (current) use of insulin; Z79.82 Long term (current) use of aspirin; Z79.02 Long term (current) use of antithrombotics/antiplatelets; Z79.899 Other long term (current) drug therapy; Z85.038 Personal history of other malignant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 large intestine; Z86.61 Personal history of infections of the central nervous system; Z98.0 Intestinal bypass and anastomosis status; Z90.49 Acquired absence of other specified parts of digestive tract
CPT/HCPCS: 45380; 82962; 88305; 99152; 99153; J7120

== ENCOUNTER 2019-04-22 08:55 | Day surgery (SDC) | payer MEDICARE, OTHER, SELFPAY ==
[2019-01-11 06:29] VITALS: BMI 29.0
[2019-04-13 15:08] VITALS: BP 131/71; PULSE 75; RESP 17; TEMP 37.1; O2SAT 98; BMI 29.6
[2019-04-13 16:31] LABS: AST(SGOT) 15 U/L (15-37); Alanine Aminotransfer ALT/SGPT 19 U/L (16-61); Albumin, Serum 3.6 g/dL (3.2-5.0); Alkaline Phosphatase 82 U/L (45-117); Globulin 3.4 g/dL (2.2-4.2)
[2019-04-13 16:36] LABS: Partial Thromboplast Time 25.8 Seconds (24.1-36.2); Prothrombin Time (Protime)PT. 12.6 SECONDS (11.7-14.9)
[2019-04-22] VITALS (11 sets, daily range): BP systolic 122–143; BP diastolic 55–74; PULSE 57–80; RESP 16–18; TEMP 36.3–36.9; O2SAT 92–100; BMI 29.2
[2019-04-22] MEDS: Lactated Ringers 1,000 ML 100 ML IV ×2 (09:26→14:05)
[2019-04-22 09:41] LABS: Bedside Glucose 143 mg/dL (70-110)
--- NOTE | 2019-04-22 10:55 | PROS_PTH ---
PATIENT: LANNY OLIVIER [place] [facility] [id number] AGE/SX: 78/M ROOM: RE04/22/[address]: Dr. Zafar Payne MD : 1940 BED: DIS: 04/23/2019 SPEC #: [id number] RECD: 04/22/19 15:03 STATUS: BERTRAM MICHI #: [id number] STEPHAN: 04/22/19 10:[address]: Zafar Payne DEPT: SURGICAL PATHOLOGY RECD BY: Lazaro Gary ENTERED: 04/25/19 08:01 SP TYPE: TURP OTHR DR: Dr. Delano Garcia MD Tissues: Prostate, NOS Procedures: Surgery Specimen Level IV HEADER OPERATION: Cysto, TUR prostate, Olymp[employer] PRE-OP DIAGNOSIS: BPH; urinary retention TISSUE SUBMITTED: Prostate tissue MICROSCOPIC DIAGNOSIS Prostate tissue, TUR: Benign prostatic hyperplasia, glandular and stromal type. Focal moderate chronic inflammation. SJ:yaa 04/26/19 MICROSCOPIC DESCRIPTION Slides are reviewed. GROSS DESCRIPTION Received is one container labeled with the patient's name and designated prostate tissue. The specimen consists of multiple irregular fragments of pink-mane, rubbery, soft tissue that in aggregate weigh 10.2 gm and measure in aggregate 5 x 4 x 2 cm. The entire specimen is submitted in 11 cassettes. / DEDRICK:yaa 04/25/19 TC:4 CPT: 02049
[2019-04-22] MEDS: Cefazolin 2 GM in 0.9% Normal Saline 100 ML IV (12:03)
--- NOTE | 2019-04-22 12:04 | PCM.DC.URO ---
Discharge Diet: Light diet - advance as tolerated Discharge Activity: May not drive while taking narcotic pain medications., May Shower Return to work on:: 05/02/19 Call your doctor if your incision/area has: Sudden Increased Bleeding Suture Line Care: Avoid Pulling/Pushing, Avoid Pinching/Bending Instructions: Transurethral Resection of the Prostate (TURP): Home Recovery Allergies/Adverse Reactions: Allergies No Known Allergies Allergy (Verified 04/22/19 09:14) Medications to take at Discharge Insulin Aspart [Novolog Flexpen] 6 units SUBCUT TID 06/25/17 Lisinopril/Hydrochlorothiazide [Zestoretic 20-25 mg Tablet] 1 ea PO DAILY 06/25/17 metFORMIN HCl [Glucophage] 1,000 mg PO BIDCM 06/25/17 aspirin 81 mg tablet,delayed release 81 mg PO DAILY 12/23/18 Insulin Glargine,Hum.rec.anlog [Basaglar Kwikpen U-100] 25 unit SQ QHS 04/13/19 Ciprofloxacin [Cipro] 500 mg PO BID #14 tab 04/22/19 The following prescriptions were given: Ciprofloxacin [Cipro] 500 mg PO BID #14 tab Transmission Status: Pending to [facility] Primary Care Physician: Delano Garcia MD [Primary Care Provider] - Test Results: Test results from this visit will be discussed in further detail at your follow-up appointment, if applicable. Please Follow Up With: Zafar Payne MD When: in 2 weeks, please call to make an appointment. Proposed Discharge Date: 04/23/19
--- NOTE | 2019-04-22 13:00 | OP.PCM_ITS ---
Report of Operation Date of Procedure: 04/22/19 Pre-Operative Diagnosis: BPH with obstruction Post-Operative Diagnosis: Same Surgery/Procedure Performed:: Transurethral resection of the prostate Description of Surgical Findings:: 78-year-old male with BPH and obstruction and obstructive urinary symptoms presents to the hospital for a transurethral resection of the prostate, penis and testicles are prepped and draped in usual fashion, went into the bladder with a 21 Chadian rigid cystourethroscope, the entire length urethra is normal, pendulous urethra was normal, bulbar urethra is normal, verumontanum was identified the sphincter was identified the prostate had bilateral hypertrophy high riding bladder neck but no median lobe, I then identified the trigone, identified the right and left ureteral orifice, the bladder was checked and th ere is no tumors in the bladder, I then switched over to the resectoscope he is a 24 Chadian noncontinuous flow resectoscope, I resected the floor of the prostate, resect the right lobe of the prostate, resect the left lobe of the prostate, and then resected the apical tissue obtained all the chips and removed all the chips in the bladder obtain hemostasis with electrocautery, checked the sphincter sphincter was intact, verumontanum was intact no resection past the verumontanum had a nice wide open flow wide open channel from the verumontanum into the bladder and then after obtaining hemostasis but a catheter bladder and continuous bladder irrigation the urine was clear and the patient's anesthetic was being reversed. Type of Anesthesia:: General Drains: 22fr 3 way - Admit VTE Documentation VTE Present on Admission: No VTE Mechan Device Prophylaxis: SCD's
[2019-04-22 13:40] LABS: Bedside Glucose 90 mg/dL (70-110)
[2019-04-22] MEDS: Ketorolac 15 MG/ML Vial IV ×2 (13:41→18:30)
[2019-04-22] MEDS: 0.45% Normal Saline 1,000 ML 125 ML IV ×2 (15:11→23:07)
[2019-04-22] MEDS: 0.9% Saline Lock 10 ML Syringe IV (18:27)
[2019-04-22] MEDS: Ciprofloxacin 500 MG Tablet PO (21:01)
[2019-04-22] MEDS: Docusate Sodium 100 MG Capsule PO (21:01)
[2019-04-23] MEDS: Ketorolac 15 MG/ML Vial IV ×3 (01:19→13:36)
[2019-04-23 05:00] VITALS: BP 145/59; PULSE 58; RESP 18; TEMP 36.8; O2SAT 97
--- NOTE | 2019-04-23 06:05 | NURSING ---
CBI irrigation stop @ 6am.
[2019-04-23] MEDS: 0.45% Normal Saline 1,000 ML 125 ML IV (06:16)
[2019-04-23 06:45] LABS: Hematocrit 39.7 % (40-54); Hemoglobin 13.2 g/dL (13.0-16.5); Mean Corp Hgb Conc 33.2 g/dL (32-36); Mean Corpuscular Volume 84.1 fL (80-94); Mean Platelet Vol. 10.6 fl (6.2-12.0); Platelet Count 290 K/mm3 (150-450); RBC Distribution Width CV 14.4 % (11.6-14.6); RBC Distribution Width SD 43.9 fl (35.1-43.9); Red Blood Count 4.72 M/mm3 (4.6-6.2); White Blood Count 18.1 K/mm3 (4.4-11.0)
[2019-04-23 07:12] LABS: Anion Gap 9 (5-15); BUN 27 mg/dL (7-18); BUN/Creat Ratio 19.3 RATIO (10-20); Calcium,Total 8.4 mg/dL (8.5-10.1); Chloride 107 mmol/L (98-107); EST Glomerular Filtration Rate 52 mL/min (>60); Est Glom Filt Rate - Afr Amer 63 mL/min (>60); Estimated Creatinine Clearance 45.63 ml/min; Glucose 176 mg/dL (74-106); Potassium 4.3 mmol/L (3.5-5.1); Sodium Level 138 mmol/L (136-145)
[2019-04-23 08:51] VITALS: BP 130/59; PULSE 63; RESP 16; TEMP 36.7; O2SAT 96
[2019-04-23] MEDS: Docusate Sodium 100 MG Capsule PO (09:17)
[2019-04-23] MEDS: Ciprofloxacin 500 MG Tablet PO (09:18)
[2019-04-23] MEDS: Pantoprazole Sodium 20 MG Tablet PO (09:18)
[2019-04-23] MEDS: Magnesium Hydroxide 30 ML UDC 15 ML PO (09:18)
[2019-04-23 10:55] VITALS: O2SAT 97
[2019-04-23 13:34] VITALS: BP 158/70; PULSE 60; RESP 16; TEMP 36.6; O2SAT 96
[2019-04-23 17:36] LABS: Bedside Glucose 182 mg/dL (70-110)
--- NOTE | 2019-04-27 15:13 | PCM.HP.STD ---
History of Present Illness Date of Admission: 04/22/19 Chief Complaint: bph The patient is a 78 year old male presents for TURP. Past Medical History Past Medical History (Chronic Problems): Chronic Problems (Last Reviewed 12/23/18 @ 09:31 by Liliana Limon) Compliance poor (Chronic) Tobacco abuse (Chronic) Hypertension (Chronic) Type 2 diabetes mellitus (Chronic) Medical History: Medical History (Last Reviewed 12/23/18 @ 09:31 by Liliana Limon) Personal history of colon cancer (Acute) Z85.038 PAD (peripheral artery disease) (Acute) I73.9 Colon cancer (Acute) C18.9 Meningitis (Acute) G03.9 Confusion (Acute) R41.0 Mental status change (Acute) R41.82 Tobacco abuse (Chronic) Z72.0 Hypertension (Chronic) I10 Type 2 diabetes mellitus (Chronic) E11.9 Allergies No Known Allergies Allergy (Verified 04/22/19 09:14) Home Medications: Ambulatory Orders Medication Instructions Recorded Insulin Aspart [Novolog Flexpen] 6 units SUBCUT TID 06/25/17 Lisinopril/Hydrochlorothiazide 1 ea PO DAILY 06/25/17 [Zestoretic 20-25 mg Tablet] metFORMIN HCl [Glucophage] 1,000 mg PO BIDCM 06/25/17 aspirin 81 mg tablet,delayed 81 mg PO DAILY 12/23/18 release Insulin Glargine,Hum.rec.anlog 25 unit SQ QHS 04/13/19 [Basaglar Kwikpen U-100] Ciprofloxacin [Cipro] 500 mg PO BID #14 tab 04/22/19 Surgical History: Surgical History (Last Reviewed 12/23/18 @ 09:31 by Liliana Limon) hx of APLL (Acute) 09/20/18 History of colonoscopy (Acute) Z98.890 History of laparoscopic cholecystectomy (Acute) Z90.49 History of colectomy Onset Date: ~05/2018 Z90.49 Surgical History: appendectomy, cholecystectomy, herniorrhaphy Psychiatric History: No pertinent psych hx Smoking Status: Former smoker Tobacco Use: Cigarettes - *Family History Maternal Family History: Family History (Last Reviewed 12/23/18 @ 09:31 by Liliana Limon) Mother Cancer Father Diabetes History Items: Cancer Paternal Family History: Family History (Last Reviewed 12/23/18 @ 09:31 by Liliana Limon) Mother Cancer Father Diabetes History Items: Diabetes, Stroke VTE Information - Inpt Only VTE Present on Admission: No VTE Mechan Device Prophylaxis: SCD's - Physical Exam Vitals/I&O's: Vital Signs Temp Pulse Resp BP Pulse Ox 97.8 F 60 16 158/70 H 96 04/23/19 13:34 04/23/19 13:34 04/23/19 13:34 04/23/19 13:34 04/23/19 13:34 Oxygen Delivery Method Room Air Weight: 93.6 kg Body Mass Index (BMI) 29.2 General: Alert, Oriented x3, Cooperative HEENT: Atraumatic, PERRLA, EOMI, Normocephalic Neck: Supple, No JVD, Negative Carotid Bruits Lungs: Clear to auscultation, Normal air movement Cardiovascular: Regular rate, No murmurs Abdomen: Bowel Sounds Present, Soft, Non Tender Extremities: No edema, Capillary Refill Less than 3 Seconds Skin: No rashes, No breakdown Musculoskeletal: No Tenderness to Palpation of Joints or Extremities Neurological: Cranial nerves II-XII grossly intact Psych/Mental Status: Normal Affect, Appropriate Assessment/Plan All Active Problems (Last Reviewed 12/23/18 @ 09:31 by Liliana Limon) Personal history of colon cancer (Acute) Encounter for screening for lung cancer (Acute) Anemia (Resolved) hx of APLL (Acute) History of colonoscopy (Acute) PAD (peripheral artery disease) (Acute) Colon cancer (Acute) History of laparoscopic cholecystectomy (Acute) Meningitis (Acute) Confusion (Acute) Mental status change (Acute) Plan for TURP today.
== END 2019-04-23 15:14 | disposition home or self-care (01) ==
LOC: SDC 08:56 → AC 08:57 → MS3 12:17
PROVIDERS: Anesthesiology; Family Provider Family Medicine; PCP Family Medicine; Referring Provider Urology; Visit Provider Urology
PROC: (CPT 52601; principal; 2019-04-22 10:45)
DX: N40.1 Benign prostatic hyperplasia with lower urinary tract symptoms (principal); N13.8 Other obstructive and reflux uropathy; R33.8 Other retention of urine; R35.0 Frequency of micturition; N32.89 Other specified disorders of bladder; E10.9 Type 1 diabetes mellitus without complications; I10 Essential (primary) hypertension; Z79.82 Long term (current) use of aspirin; Z79.4 Long term (current) use of insulin; Z79.899 Other long term (current) drug therapy; Z85.038 Personal history of other malignant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 large intestine; Z87.891 Personal history of nicotine dependence; Z90.49 Acquired absence of other specified parts of digestive tract
CPT/HCPCS: 52601; 36415; 80048; 80076; 82962; 85027; 85610; 85730; 88305; 99251; J7120; A4216; G0463; J2405

== ENCOUNTER → 2019-08-09 14:19 | Outpatient (CLI) | payer MEDICARE, OTHER, SELFPAY ==
[2019-04-22 14:56] VITALS: BMI 29.2
[2019-08-09 15:18] LABS: PSA,Total- Diagnostic 3.92 ng/mL (0.0-4.0)
== END ==
PROVIDERS: PCP Family Medicine; Referring Provider Urology; Visit Provider Urology
DX: N40.1 Benign prostatic hyperplasia with lower urinary tract symptoms (principal)
CPT/HCPCS: 36415; 84153

== ENCOUNTER 2020-10-16 14:51 | Emergency (ER) | payer MEDICARE, OTHER, SELFPAY ==
[2019-04-22 14:56] VITALS: BMI 29.2
[2020-10-16] VITALS (7 sets, daily range): BP systolic 121–135; BP diastolic 51–65; PULSE 67–77; RESP 16–31; TEMP 37–37.9; O2SAT 95–99; BMI 30.1
--- NOTE | 2020-10-16 15:03 | EX.ED.DYSGE1 ---
HPI History of Present Illness Chief Complaint: General Illness Informant: patient and spouse/S.O. Narrative Narrative: 79-year-old male presents the emergency department with generalized weakness. His tells me that on the he got a second Covid vaccination. On the he began to feel very weak. He denies any other symptoms. states she feels fine. Please see review of systems for positives. [facility] Medical History (Updated 10/16/20 @ 18:[address] Duncan Chaudhari DO) Colon cancer Confusion Hypertension Meningitis Mental status change PAD (peripheral artery disease) Personal history of colon cancer Smoker Tobacco abuse Type 2 diabetes mellitus Home Medications insulin aspart U-100 6 units SUBCUT TID 06/25/17 [History Last Taken 10/16/20] metformin 1,000 mg PO BIDCM 06/25/17 [History Last Taken 10/16/20] insulin glargine 30 unit SQ QHS 04/13/19 [History Last Taken 10/15/20] gabapentin 100 mg PO TID 10/16/20 [History Last Taken 10/16/20] lisinopril-hydrochlorothiazide 1 tab PO DAILY 10/16/20 [History Last Taken 10/16/20] Allergy/AdvReac Type Severity Reaction Status Date / Time No Known Allergies Allergy Verified 10/16/20 14:54 Family History Mother Cancer stomach Father Diabetes Surgical History History of colectomy (~05/2018) History of colonoscopy History of laparoscopic cholecystectomy hx of APLL Social History Smoking Status: Current every day smoker tobacco type: cigarettes Tobacco: How many years used: 45 Electronic Cigarette Use: not used second hand exposure: Yes quit status: has quit before alcohol intake: never substance use type: does not use ROS ROS ED Constitutional Constitutional ED: Reports other Details: Generalized weakness ; Denies chills or weight loss Eyes Eyes: Denies change in vision or diplopia ENT ENT ED: Reports rhinorrhea and sore throat; Denies ear pain Cardiovascular Cardiovascular: Denies chest pain, orthopnea, palpitations or racing heartbeat Respiratory/Chest Respiratory/Chest: Reports cough, dyspnea, dyspnea on exertion and sputum; Denies orthopnea Gastrointestinal Gastrointestinal: Denies abdominal pain, diarrhea, nausea or vomiting Genitourinary Genitourinary ED: Denies dysuria, hematuria or urinary frequency Musculoskeletal Musculoskeletal: Reports myalgias; Denies arthralgias Integumentary Denies abscess or rash Neurologic Neurologic: Reports headache(s); Denies weakness Psychiatric Psychiatric: Denies anxiety, depression, suicidal ideation or suicidal thoughts Endocrine Endocrinology: Denies polydipsia, polyphagia or polyuria Allergic/Immunologic Allergic/Immunologic ED: Denies mouth swelling, tongue swelling or urticaria EXAM Physical Exam Const Vital Signs: 10/16/20 14:52 10/16/20 15:29 10/16/20 15:31 Temperature 100.3 F H 98.6 F Temperature Source Temporal Oral Pulse Rate 77 77 Respiratory Rate 16 31 H Respiratory Effort Normal Respiratory Pattern Normal Blood Pressure 135/51 H 131/51 H Blood Pressure Mean 79 77 Pulse Ox 95 98 Oxygen Delivery Method Room Air Room Air 10/16/20 15:33 10/16/20 16:23 10/16/20 16:24 Temperature 98.6 F 98.6 F 98.6 F Temperature Source Oral Oral Oral Pulse Rate 72 Respiratory Rate 31 H Respiratory Effort Respiratory Pattern Blood Pressure 131/65 H Blood Pressure Mean 87 Pulse Ox 98 Oxygen Delivery Method Room Air 10/16/20 17:21 10/16/20 18:06 Temperature 98.7 F Temperature Source Temporal Pulse Rate 70 67 Respiratory Rate 28 H 28 H Respiratory Effort Respiratory Pattern Blood Pressure 121/53 H 133/55 H Blood Pressure Mean 75 81 Pulse Ox 99 98 Oxygen Delivery Method Room Air Room Air Positive well nourished and well developed General Appearance ED: well developed HEENT Reports normocephalic, head/scalp atraumatic and moist mucous membranes Eyes PERRL and EOMs intact bilaterally Neck no lymphadenopathy, supple and no JVD Resp normal respiratory effort and clear to auscultation bilaterally Cardio regular rate, regular rhythm and no murmurs GI normal to inspection, nondistended, normoactive bowel sounds and non-tender Palpation: soft Back/Spine no CVA tenderness and normal ROM Extremity normal to inspection General Extremety ED: Negative for edema General Extremity: Negative for edema Neuro oriented x3 and CN's II-XII intact bilaterally Sensorium / Orientation: alert Motor Exam: strength 5/5 throughout Psych mental status grossly normal Mood & Affect: Negative for depressed or tearful Skin no rashes or lesions noted and no wounds MDM MDM MDM Narrative Medical decision making narrative: My interpretation of the chest x-ray is mild vascular congestion. White count elevated 12.5.Creatinine 1.67. BNP is normal Lactic acid is normal. Urinalysis is normal. Covid and influenza swabs negative. CTA of the chest does not demonstrate any pneumonitis or pneumonia.I personally counted the patient's respirations and have them at 18/min. Patient received IV fluids. At this point it would appear that the patient has more of a viral syndrome.Patient has an appointment he states in 2 days with his primary care doctor. I encouraged him to orally hydrate and eat at home. Lab Data Attestation: I reviewed the patient's lab results. Labs: Laboratory Results - last 24 hr 10/16/20 10/16/20 10/16/20 15:21 15:21 15:21 WBC 12.5 H RBC 5.00 Hgb 14.0 Hct 42.9 MCV 85.8 MCH 28.0 MCHC 32.6 RDW Std Deviation 43.6 RDW Coeff of Yusuf 13.9 Plt Count 304 MPV 10.2 Immature Gran % (Auto) 0.500 Neut % (Auto) 75.5 H Lymph % (Auto) 13.6 L Ector % (Auto) 8.8 Eos % (Auto) 1.2 Baso % (Auto) 0.4 Absolute Neuts (auto) 9.4 H Absolute Lymphs (auto) 1.69 Nucleated RBC % 0 PT 12.5 INR 1.0 APTT 24.7 Sodium 137 Potassium 4.1 Chloride 106 Carbon Dioxide 26.0 Anion Gap 5 BUN 28 H Creatinine 1.67 H Estim Creat Clear Calc 37.64 Est GFR (MDRD) Af Amer 51 L Est GFR (MDRD) Non-Af 42 L BUN/Creatinine Ratio 16.8 Glucose 144 H Lactic Acid Calcium 9.1 Total Bilirubin 0.60 AST 10 L ALT 20 Alkaline Phosphatase 81 Troponin I < 0.015 B-Natriuretic Peptide Total Protein 7.2 Albumin 3.4 Globulin 3.8 Albumin/Globulin Ratio 0.9 Urine Color Urine Clarity Urine pH Ur Specific [place] Urine Protein Urine Glucose (UA) Urine Ketones Urine Occult Blood Urine Nitrite Urine Bilirubin Urine Urobilinogen Ur Leukocyte Esterase Urine RBC Urine WBC Ur Squamous Epith Cells Urine Bacteria Urine Mucus 10/16/20 10/16/20 10/16/20 15:21 15:21 16:00 WBC RBC Hgb Hct MCV MCH MCHC RDW Std Deviation RDW Coeff of Yusuf Plt Count MPV Immature Gran % (Auto) Neut % (Auto) Lymph % (Auto) E[place] % (Auto) Eos % (Auto) Baso % (Auto) Absolute Neuts (auto) Absolute Lymphs (auto) Nucleated RBC % PT INR APTT Sodium Potassium Chloride Carbon Dioxide Anion Gap BUN Creatinine Estim Creat Clear Calc Est GFR (MDRD) Af Amer Est GFR (MDRD) Non-Af BUN/Creatinine Ratio Glucose Lactic Acid 1.2 Calcium Total Bilirubin AST ALT Alkaline Phosphatase Troponin I B-Natriuretic Peptide 19.1 Total Protein Albumin Globulin Albumin/Globulin Ratio Urine Color Yellow Urine Clarity Clear Urine pH 5.0 Ur Specific [place] 1.020 Urine Protein 30 H Urine Glucose (UA) Normal Urine Ketones Negative Urine Occult Blood Negative Urine Nitrite Negative Urine Bilirubin Negative Urine Urobilinogen Normal Ur Leukocyte Esterase Negative Urine RBC 0 SEEN Urine WBC 0-5 SEEN Ur Squamous Epith Cells 0 SEEN Urine Bacteria 0 SEEN Urine Mucus 1+ Radiography Diagnostic Testing: Radiology Impression Chest X-Ray 10/16/20 15:30 IMPRESSION: Vascular congestion and mild degree of CHF. Electronically Signed: You Erwin MD at 15:51 EDT , Service support , Chest CTA 10/16/20 16:25 IMPRESSION: 1. No evidence of pulmonary embolus. 2. No aortic dissection or aneurysm. There is atherosclerotic changes of the aorta. 3. Coronary artery calcifications. 4. No acute pulmonary disease. 5. Degenerative changes of the thoracic spine. 6. Left renal cysts. Electronically Signed: Candido Bolton DO at 17:37 EDT Tel [phone], Service support , EKG Initial EKG: Attestation: I personally reviewed and interpreted this EKG as follows: Comments: EKG demonstrates a sinus rhythm with first-degree AV block right bundle branch block noted. Ventricular rate of 76. Discharge Plan Triage Chief Complaint: General Illness ED Provider: Duncan Chaudhari Dx/Rx/DC Orders Clinical Impression: Acute viral syndrome Instructions: ED Viral Syndrome (Adult) Prescriptions: No Action metformin 1,000 MG tablet 1,000 mg PO BIDCM RF: 0 insulin aspart U-100 100 UNITS/ML insulin pen 6 units subcut TID RF: 0 insulin glargine 100 UNIT/ML insulin pen 30 unit SQ QHS RF: 0 gabapentin 100 mg capsule 100 mg PO TID RF: 0 lisinopril-hydrochlorothiazide 20-25 mg tablet 1 tab PO DAILY RF: 0 Primary Care Provider: Delano Garcia Referrals: Delano Garcia MD [Primary Care Provider] - [facility] appointment Disposition Disposition: Home, self care
--- NOTE | 2020-10-16 15:08 | EKG12_ITS ---
Test Reason : GENERAL ILLNESS Blood Pressure : / mmHG Vent. Rate : 076 BPM Atrial Rate : 076 BPM P-R Int : 234 ms QRS Dur : 140 ms QT Int : 400 ms P-R-T Axes : 000 -55 024 degrees QTc Int : 450 ms Sinus rhythm with 1st degree A-V block Left axis deviation Right bundle branch block Abnormal ECG Confirmed by LEROY FINNEGAN, LEVY ([id number]), image editor ROSITA VIVEROS ([id number]) on 10/18/2020 11:19:16 AM Referred By: NURA Confirmed By:LEVY HARPER MD
--- NOTE | 2020-10-16 15:30 | RAD_ITS ---
STUDY: X-RAY CHEST REASON FOR EXAM: Male, 79 years old. Cough, fever, sob TECHNIQUE: Single AP portable view of the chest. COMPARISON: Comparison is made with prior study dated 06/25/2017. FINDINGS: EKG electrodes are seen. There is evidence of vascular congestion and mild CHF. There is no demonstrated pleural abnormality. Normal size heart. Normal mediastinum and david. Normal visualized pulmonary arteries. There is atherosclerotic calcification of the aortic arch with tortuosity. There are diffuse degenerative changes of the visualized thoracic spine. Normal visualized ribs, clavicles, and shoulders. There is no demonstrated abnormality of the visualized soft tissue structures of the upper abdomen. RAD/Chest 1 View (Portable) IMPRESSION: Vascular congestion and mild degree of CHF. Electronically Signed: You Erwin MD at 15:51 EDT , Service support ,
[2020-10-16 15:36] LABS: Absolute Lymphocyte Count 1.69 X10^3/uL (0.83-4.51); Absolute Neutrophil Count 9.4 X10^3/uL (2.0-7.7); Basophil# 0.05 X10^3/uL; Basophil% 0.4 % (0-1); Eosinophil# 0.15 X10^3/uL; Eosinophils% 1.2 % (0-5); Hematocrit 42.9 % (40-54); Lymphocyte # 1.69 X10^3/ul (0.83-4.51); Lymphocyte % 13.6 % (19-41); Mean Corp Hgb Conc 32.6 g/dL (32-36); Mean Corpuscular Volume 85.8 fL (80-94); Mean Platelet Vol. 10.2 fl (6.2-12.0); Monocyte% 8.8 % (0-10); NRBC Flagged by Analyzer 0 % (0-5); Neutrophil % 75.5 % (47-70); Platelet Count 304 K/mm3 (150-450); RBC Distribution Width CV 13.9 % (11.6-14.6); RBC Distribution Width SD 43.6 fl (35.1-43.9); White Blood Count 12.5 K/mm3 (4.4-11.0)
[2020-10-16 15:45] LABS: Prothrombin Time (Protime)PT. 12.5 SECONDS (11.7-14.9)
[2020-10-16 15:46] LABS: Partial Thromboplast Time 24.7 Seconds (24.1-36.2)
[2020-10-16 15:54] LABS: ALB/GLOB Ratio 0.9 RATIO (0.9-2.4); AST(SGOT) 10 U/L (15-37); Alanine Aminotransfer ALT/SGPT 20 U/L (16-61); Albumin, Serum 3.4 g/dL (3.2-5.0); Alkaline Phosphatase 81 U/L (45-117); Anion Gap 5 (5-15); BUN 28 mg/dL (7-18); BUN/Creat Ratio 16.8 RATIO (10-20); Calcium,Total 9.1 mg/dL (8.5-10.1); Chloride 106 mmol/L (98-107); Creatinine, Serum 1.67 mg/dL (0.70-1.30); EST Glomerular Filtration Rate 42 mL/min (>60); Est Glom Filt Rate - Afr Amer 51 mL/min (>60); Estimated Creatinine Clearance 37.64 ml/min; Globulin 3.8 g/dL (2.2-4.2); Glucose 144 mg/dL (74-106); Potassium 4.1 mmol/L (3.5-5.1); Protein, Total 7.2 g/dL (6.4-8.2); Sodium Level 137 mmol/L (136-145)
[2020-10-16 15:58] LABS: Lactic Acid 1.2 mmol/L (0.4-1.9)
[2020-10-16 16:13] LABS: Bacteria 0 SEEN /hpf (None Seen); Red Blood Cells-Urine 0 SEEN /hpf (0-5); Squamous Epithelial Cells - UA 0 SEEN /hpf (0-5)
[2020-10-16] MEDS: 0.9% Normal Saline 1,000 ML 999 ML IV (16:17)
[2020-10-16] MEDS: Acetaminophen 500 MG Tablet 1000 MG PO (16:17)
--- NOTE | 2020-10-16 16:25 | CT_ITS ---
STUDY: CTA CHEST REASON FOR EXAM: Male, 79 years old. Dyspnea. Receive second coping shot 10 days ago. Cough, body aches, fever and weakness. RADIATION DOSAGE (If Supplied By Facility): CTDIvol = ( 13.81 ) mGy, DLP = ( 508.24 ) mGycm TECHNIQUE: The examination was performed with the intravenous administration of IV 100mL Isovue-370. Post-processing of the angiographic images was performed, with multiplanar reformation and 3D reconstruction. Individualized dose optimization techniques were used for this CT. COMPARISON: Low-dose screening chest CT, 10/26/2018. FINDINGS: Normal enhancement of the main pulmonary artery and right and left pulmonary arteries. Normal enhancement of the bilateral peripheral pulmonary arteries. There is no demonstrated pulmonary embolism. There is atherosclerotic tortuosity of the thoracic aorta without aneurysm. There is no demonstrated aortic dissection. Normal heart and pericardium. There are calcifications of the coronary arteries. Nonspecific subcentimeter AP window and paratracheal lymphadenopathy. Normal hilar regions. Normal visualized trachea and bronchi. The lungs are well expanded. Normal pulmonary parenchyma. Normal pleura. Normal chest wall structures. There are degenerative changes of thoracic spine. (The upper pole left kidney. The upper abdomen is otherwise grossly normal. CT/CTA Chest W/WO Contrast IMPRESSION: 1. No evidence of pulmonary embolus. 2. No aortic dissection or aneurysm. There is atherosclerotic changes of the aorta. 3. Coronary artery calcifications. 4. No acute pulmonary disease. 5. Degenerative changes of the thoracic spine. 6. Left renal cysts. Electronically Signed: Candido Bolton DO at 17:37 EDT Tel [phone], Service support ,
[2020-10-16 16:33] LABS: Color, Urine Yellow (Yellow); Glucose, Dipstick Normal (Normal); Ketone-Dipstick Negative (Negative); Leukocyte Esterase-Dipstick Negative /ul (Negative); Nitrite-Dipstick Negative (Negative); Occult Blood-Urine Negative /ul (Negative); Protein-Dipstick 30 mg/dl (Negative); Urine Bilirubin Dipstick Negative (Negative); Urine Clarity Clear (Clear); Urine Urobilinogen Normal (Normal)
[2020-10-16 16:42] LABS: Mucous, Urine 1+ /hpf (<or=2+); White Blood Cells 0-5 SEEN /hpf (0-5)
[2020-10-16 17:14] LABS: BNP,B-Type NATRIURETIC PEPTIDE 19.1 pg/mL (0-100)
== END 2020-10-16 18:20 | disposition home or self-care (01) ==
PROVIDERS: Emergency Provider Emergency Medicine; PCP Family Medicine
DX: B34.9 Viral infection, unspecified (principal); Z20.822 Contact with and (suspected) exposure to COVID-19; I11.0 Hypertensive heart disease with heart failure; I50.9 Heart failure, unspecified; E11.51 Type 2 diabetes mellitus with diabetic peripheral angiopathy without gangrene; F17.210 Nicotine dependence, cigarettes, uncomplicated; Z79.4 Long term (current) use of insulin; Z79.899 Other long term (current) drug therapy; Z85.038 Personal history of other malignant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 large intestine
CPT/HCPCS: 36415; 71045; 71275; 80053; 81001; 83605; 83880; 84484; 85025; 85610; 85730; 87040; 87086; 87426; 87804; 93005; 96360; 99284; J7030; Q9967

== ENCOUNTER 2021-08-16 10:21 | Inpatient (IN) | payer MEDICARE, OTHER, SELFPAY ==
[2021-08-16] VITALS (10 sets, daily range): BP systolic 109–152; BP diastolic 54–89; PULSE 60–74; RESP 16–24; TEMP 36–36.9; O2SAT 94–98; BMI 29.0; BMI 28.0
--- NOTE | 2021-08-16 10:49 | EKG12_ITS ---
Test Reason : WEAKNESS Blood Pressure : / mmHG Vent. Rate : 072 BPM Atrial Rate : 072 BPM P-R Int : 218 ms QRS Dur : 148 ms QT Int : 418 ms P-R-T Axes : 044 -44 021 degrees QTc Int : 457 ms Sinus rhythm with 1st degree A-V block Left axis deviation Right bundle branch block Abnormal ECG Confirmed by LEROY FINNEGAN, LEVY ([id number]), graphic editor ROSITA VIVEROS ([id number]) on 08/20/2021 11:02:30 AM Referred By: MEEK/BRIAN Confirmed By:LEVY HARPER MD
--- NOTE | 2021-08-16 10:51 | CT_ITS ---
STUDY: CT BRAIN WITHOUT CONTRAST REASON FOR EXAM: Male, 80 years old. confusion RADIATION DOSAGE (If Supplied By Facility): CTDIvol = ( 44.99 ) mGy, DLP = ( 846.73 ) mGycm TECHNIQUE: Transaxial CT imaging of the brain was performed without administration of intravenous contrast material. Individualized dose optimization techniques were used for this CT. COMPARISON: 06/25/2017 FINDINGS: Normal soft tissue structures. Normal calvarium. There is mild cerebral atrophy with widening of the extra-axial spaces and ventricular dilatation. There are areas of decreased attenuation within the white matter tracts of the supratentorial brain, consistent with microvascular disease changes. Normal basal ganglia and thalami. Normal brainstem. Normal cerebellum. There is no intracranial hemorrhage. There are no findings of an acute ischemic infarction. Air-fluid level in the right maxillary sinus consistent with acute sinusitis. CT/Brain/Head without Contrast IMPRESSION: Chronic involutional changes of the brain. Electronically Signed: Piero Martinez MD at 12:17 EDT ,
[2021-08-16] MEDS: 0.9% Normal Saline 1,000 ML 999 ML IV (11:18)
--- NOTE | 2021-08-16 11:18 | EDS_ITS ---
HPI <ELIZABETH Guerra - Last Filed: 08/16/21 14:55> History of Present Illness Chief Complaint: Weakness Narrative Narrative: 80-year-old male with history of colon cancer hypertension, diabetes, hyperlipidemia presents to the emergency department with 2 weeks of generalized illness, cough, congestion. Per the family, he did have a fall in the barn injuring his lower back and buttocks. Per the family he is also been more agitated, confused worse over the last 2 weeks. Patient is currently on amoxicillin for a sinus infection, per the family, he is not getting better and is not doing well at home. Patient lives at home with his , per the patient he does not know why he is here however he was confused about the year when he got here. Patient has no fevers or chills. Patient complains of a cough, lower back pain. PFSH <ELIZABETH Guerra - Last Filed: 08/16/21 14:55> PFSH Medical History Colon cancer Confusion Hypertension Meningitis Mental status change PAD (peripheral artery disease) Personal history of colon cancer Smoker Tobacco abuse Type 2 diabetes mellitus Home Medications insulin aspart U-100 6 units SUBCUT TID 06/25/17 [History Last Taken 08/16/21] insulin glargine 30 unit SQ QHS 04/13/19 [History Last Taken 08/15/21] gabapentin 100 mg PO TID 10/16/20 [History Last Taken 08/16/21] lisinopril-hydrochlorothiazide 1 tab PO DAILY 10/16/20 [History Last Taken 08/15/21] amoxicillin-pot clavulanate 1 tab PO BID 08/16/21 [History Last Taken 08/16/21] metformin 1,000 mg PO BID 08/16/21 [History Last Taken 08/16/21] Allergy/AdvReac Type Severity Reaction Status Date / Time No Known Allergies Allergy Verified 08/16/21 10:22 Family History Mother Cancer stomach Father Diabetes Surgical History History of colectomy (~05/2018) History of colonoscopy History of laparoscopic cholecystectomy hx of APLL Social History Smoking Status: Current every day smoker tobacco type: cigarettes Tobacco: How many years used: 45 Electronic Cigarette Use: not used second hand exposure: Yes quit status: has quit before alcohol intake: never substance use type: does not use ROS <ELIZABETH Guerra - Last Filed: 08/16/21 14:55> ROS ED ROS Narrative Constitutional: Negative for fever, chills, weight loss or gain. Positive generalized weakness Eyes: Negative for vision loss, vision change, double vision ENT: Negative for any hearing changes, ringing in the ears, dizziness, discharge, pain Nose: Negative for any congestion, runny nose, sinus pain, allergies Throat: Negative for any sore throat hoarseness, voice changes, Cardiovascular: Negative for any chest pain, tightness, palpitations, racing heartbeat Respiratory: Negative for any hemoptysis, shortness of breath, shortness of breath on exertion,. Positive for cough, sputum production Gastrointestinal: Negative for any nausea, vomiting, diarrhea, constipation, blood in stool, blood in vomit. Positive for intermittent abdomen pain : Negative for any incontinence, dysuria, retention, blood in urine. Positive for urinary frequency Muscle skeletal: Negative for any muscle joint pain, stiffness, myalgias, art hralgias, neck pain. Positive for back pain Neurological: Negative for any headache, head injury, dizziness, syncope, numbness or tingling Skin: Negative for any rashes, lumps, itching, abrasions, lacerations Psychiatric: Negative for any depression, anxiety, stress, suicidal ideation, homicidal ideation Hematologic: Negative for any easy bruising, excessive bruising, easy bleeding Allergies: Negative for any eczema, hives, rash EXAM <ELIZABETH Guerra - Last Filed: 08/16/21 14:55> Physical Exam Narrative Exam Narrative: Patient alert oriented x3, patient is slow to respond, per the family, the patient is not being forthright about the patient symptoms Const Vital Signs: 08/16/21 10:24 08/16/21 10:26 08/16/21 10:34 Temperature 97.2 F L 97.2 F L Temperature Source Temporal Temporal Pulse Rate 74 74 Respiratory Rate 17 17 Respiratory Effort Normal Non-Labored Respiratory Pattern Tachypnea Blood Pressure 152/75 H 152/75 H Blood Pressure Mean 100 100 Pulse Ox 94 94 Oxygen Delivery Method Room Air Room Air 08/16/21 11:41 08/16/21 12:00 08/16/21 13:46 Temperature 98.5 F 98.5 F 96.8 F L Temperature Source Oral Oral Oral Pulse Rate 71 60 69 Respiratory Rate 20 H 24 H 20 H Respiratory Effort Respiratory Pattern Blood Pressure 109/89 H 147/54 H 146/67 H Blood Pressure Mean 95 85 93 Pulse Ox 95 95 96 Oxygen Delivery Method Room Air Room Air Positive well nourished, well developed and obese General Appearance ED: well developed Nutritional Appearance: obese HEENT Reports dry mucous membranes Mouth ED: Yes dry mucous membranes Mouth: dry mucous membranes Eyes PERRL and EOMs intact bilaterally Neck no lymphadenopathy and supple Cardio regular rate GI non-tender Palpation: soft Back/Spine no CVA tenderness Back/Spine Narrative: Patient has lower lumbar tenderness from the fall. Lumbar Spine / Lower Back: lumbar spinal tenderness Extremity normal to inspection Neuro oriented x3 Neuro Narrative: Patient is alert and oriented x3, patient is somewhat slow to respond. Psych mental status grossly normal Skin no rashes or lesions noted <Dr. Eric Graves DO - Last Filed: 08/16/21 15:55> Physical Exam Const Vital Signs: 08/16/21 10:24 08/16/21 10:26 08/16/21 10:34 Temperature 97.2 F L 97.2 F L Temperature Source Temporal Temporal Pulse Rate 74 74 Respiratory Rate 17 17 Respiratory Effort Normal Non-Labored Respiratory Pattern Tachypnea Blood Pressure 152/75 H 152/75 H Blood Pressure Mean 100 100 Pulse Ox 94 94 Oxygen Delivery Method Room Air Room Air 08/16/21 11:41 08/16/21 12:00 08/16/21 13:46 Temperature 98.5 F 98.5 F 96.8 F L Temperature Source Oral Oral Oral Pulse Rate 71 60 69 Respiratory Rate 20 H 24 H 20 H Respiratory Effort Respiratory Pattern Blood Pressure 109/89 H 147/54 H 146/67 H Blood Pressure Mean 95 85 93 Pulse Ox 95 95 96 Oxygen Delivery Method Room Air Room Air MDM <ELIZABETH Guerra - Last Filed: 08/16/21 14:55> [facility] MDM Narrative Medical decision making narrative: Patient arrives lethargic, confused, patient has been ill for greater than 2 weeks with increased confusion and is unable to care for himself at home. Patient did receive a full work-up, patient's laboratory values show a CBC with leukocytosis, BMP shows renal dysfunction however this is chronic. Patient's urinalysis was negative for any infection, patient did receive a CT scan of the brain which was unremarkable, chest x-ray which was read by the ER physician which was unremarkable. Patient did have a CT of the abdomen pelvis with IV contrast, this was grossly unremarkable for any acute process. Patient did receive IV fluids. I did speak with hospitalist, patient will need to be admitted the hospital for metabolic encephalopathy, source is unknown. Patient mated to the MedSurg unit, with possible placement later in the stay. Family is agreeable with the plan. Patient stable for admission. Lab Data Labs: Laboratory Results - last 24 hr 08/16/21 08/16/21 08/16/21 11:08 11:08 11:08 WBC 14.4 H RBC 5.47 Hgb 16.1 Hct 46.8 MCV 85.6 MCH 29.4 MCHC 34.4 RDW Std Deviation 43.1 RDW Coeff of Yusuf 13.8 Plt Count 309 MPV 10.5 Immature Gran % (Auto) 0.600 Neut % (Auto) 78.9 H Lymph % (Auto) 9.6 L [place] % (Auto) 10.3 H Eos % (Auto) 0.1 Baso % (Auto) 0.5 Absolute Neuts (auto) 11.3 H Absolute Lymphs (auto) 1.38 Nucleated RBC % 0 Sodium 135 L Potassium 3.5 Chloride 102 Carbon Dioxide 27.0 Anion Gap 6 BUN 31 H Creatinine 1.66 H Estim Creat Clear Calc 37.26 Est GFR (MDRD) Af Amer 52 L Est GFR (MDRD) Non-Af 43 L BUN/Creatinine Ratio 18.7 Glucose 163 H Lactic Acid Calcium 9.3 Total Bilirubin Direct Bilirubin AST ALT Alkaline Phosphatase Ammonia Troponin I High Sens 18 B-Natriuretic Peptide 32.5 Total Protein Albumin Globulin Urine Color Urine Clarity Urine pH Ur Specific [place] Urine Protein Urine Glucose (UA) Urine Ketones Urine Occult Blood Urine Nitrite Urine Bilirubin Urine Urobilinogen Ur Leukocyte Esterase Urine RBC Urine WBC Ur Squamous Epith Cells Urine Bacteria Urine Mucus 08/16/21 08/16/21 08/16/21 11:08 11:35 13:00 WBC RBC Hgb Hct MCV MCH MCHC RDW Std Deviation RDW Coeff of Yusuf Plt Count MPV Immature Gran % (Auto) Neut % (Auto) Lymph % (Auto) [place] % (Auto) Eos % (Auto) Baso % (Auto) Absolute Neuts (auto) Absolute Lymphs (auto) Nucleated RBC % Sodium Potassium Chloride Carbon Dioxide Anion Gap BUN Creatinine Estim Creat Clear Calc Est GFR (MDRD) Af Amer Est GFR (MDRD) Non-Af BUN/Creatinine Ratio Glucose Lactic Acid 1.2 Calcium Total Bilirubin 0.80 Direct Bilirubin 0.18 AST 12 L ALT 18 Alkaline Phosphatase 60 Ammonia Troponin I High Sens B-Natriuretic Peptide Total Protein 6.7 Albumin 3.2 Globulin 3.5 Urine Color Yellow Urine Clarity Clear Urine pH 5.0 Ur Specific [place] 1.025 Urine Protein 100 H Urine Glucose (UA) Normal Urine Ketones 5 H Urine Occult Blood 10 H Urine Nitrite Negative Urine Bilirubin Negative Urine Urobilinogen Normal Ur Leukocyte Esterase Negative Urine RBC 0-5 SEEN Urine WBC 0 SEEN Ur Squamous Epith Cells 0 SEEN Urine Bacteria 0 SEEN Urine Mucus 0 SEEN 08/16/21 13:00 WBC RBC Hgb Hct MCV MCH MCHC RDW Std Deviation RDW Coeff of Yusuf Plt Count MPV Immature Gran % (Auto) Neut % (Auto) Lymph % (Auto) [place] % (Auto) Eos % (Auto) Baso % (Auto) Absolute Neuts (auto) Absolute Lymphs (auto) Nucleated RBC % Sodium Potassium Chloride Carbon Dioxide Anion Gap BUN Creatinine Estim Creat Clear Calc Est GFR (MDRD) Af Amer Est GFR (MDRD) Non-Af BUN/Creatinine Ratio Glucose Lactic Acid Calcium Total Bilirubin Direct Bilirubin AST ALT Alkaline Phosphatase Ammonia 21.0 Troponin I High Sens B-Natriuretic Peptide Total Protein Albumin Globulin Urine Color Urine Clarity Urine pH Ur Specific [place] Urine Protein Urine Glucose (UA) Urine Ketones Urine Occult Blood Urine Nitrite Urine Bilirubin Urine Urobilinogen Ur Leukocyte Esterase Urine RBC Urine WBC Ur Squamous Epith Cells Urine Bacteria Urine Mucus Radiography Chest X-Ray - ED: 1 View Diagnostic Testing: Clinical Impression(s) from Imaging Studies Brain CT 08/16/21 10:51 IMPRESSION: Chronic involutional changes of the brain. Electronically Signed: Piero Martinez MD at 12:17 EDT Reading Location ID and State: 994 / [employer] , Service support , Chest X-Ray 08/16/21 12:00 IMPRESSION: Normal x-ray examination of the chest. Electronically Signed: Piero Martinez MD at 12:18 EDT Reading Location ID and State: 994 / [employer] , Service support , Lumbar Spine X-Ray 08/16/21 12:00 IMPRESSION: No acute fracture or subluxation. Moderate diffuse degenerative disc disease. Electronically Signed: Piero Martinez MD at 12:18 EDT Reading Location ID and State: [place]94 / [employer] , Service support , Abdomen/Pelvis CT 08/16/21 12:26 IMPRESSION: No acute abnormality. Electronically Signed: Piero Martinez MD at 13:09 EDT Reading Location ID and State: 994 / [employer] , Service support , EKG Sinus rhythm: Attestation: I personally reviewed and interpreted this EKG as follows: Comments: Sinus rhythm with first-degree AV block, rate of 72 bpm, ID interval 218 ms, QRS duration 148 ms, no acute ST elevation, no acute infarct noted. <Dr. Eric Graves, DO - Last Filed: 08/16/21 15:55> [facility] Narrative Medical decision making narrative: Patient was seen with me. I did a [id number] examination with the patient. I agree with the history and physical examination. Patient presents with increasing confusion over the past several days. Family states patient has been having difficulty caring for himself at home. Patient denies any fevers or chills. Patient denies any nausea or vomiting. Patient denies any chest pain or shortness of breath. Vital signs are stable. Patient is afebrile. Patient is in no acute distress. Oral mucosa is pink and moist. Neck is supple. Trachea is midline. There is no JVD. Heart was regular rate and rhythm. Lungs are diminished bilaterally. There is adequate respiratory effort noted. Abdomen is soft. Bowel sounds are normal. There is mild diffuse tenderness. There is no rebound or guarding noted. Cranial nerves II through XII are intact. There are no focal motor or sensory deficits noted. CBC shows a mild leukocytosis of 14.4. Basic metabolic profile shows a BUN of 31 and creatinine 1.66. High-sensitivity troponin was normal at 18. B- natriuretic peptide was normal at 32.5. Lactate was normal at 1.2. Liver profile was obtained was within normal limits. Ammonia level was normal at 21. Urinalysis does not show any evidence of urinary tract infection. CT scan of the brain was obtained. There is no acute intracranial abnormality. This was interpreted by the radiologist and reviewed by myself. Portable 1 view chest x- ray was obtained. On my interpretation, lung enriquez are clear. There is normal cardiac silhouette. Bony thorax is normal. There is no acute process noted. Radiologist also interpreted the x-ray and agrees. CT scan of the abdomen pelvis was obtained. There is no acute intra-abdominal abnormality. This was interpreted by the radiologist and reviewed by myself. X-rays of the lumbar spine were obtained. There are 2 views. On my interpretation, there are degenerative changes. There is no acute fracture or spondylolisthesis. Radiologist also interpreted the x-rays and agrees. Patient is still somewhat confused. Case was discussed with the hospitalist. Patient will be admitted to the hospital. Patient and family understood and were agreeable with the plan. All questions were answered. Lab Data Attestation: I reviewed the patient's lab results. Labs: Laboratory Results - last 24 hr 08/16/21 08/16/21 08/16/21 11:08 11:08 11:08 WBC 14.4 H RBC 5.47 Hgb 16.1 Hct 46.8 MCV 85.6 MCH 29.4 MCHC 34.4 RDW Std Deviation 43.1 RDW Coeff of Yusuf 13.8 Plt Count 309 MPV 10.5 Immature Gran % (Auto) 0.600 Neut % (Auto) 78.9 H Lymph % (Auto) 9.6 L [place] % (Auto) 10.3 H Eos % (Auto) 0.1 Baso % (Auto) 0.5 Absolute Neuts (auto) 11.3 H Absolute Lymphs (auto) 1.38 Nucleated RBC % 0 Sodium 135 L Potassium 3.5 Chloride 102 Carbon Dioxide 27.0 Anion Gap 6 BUN 31 H Creatinine 1.66 H Estim Creat Clear Calc 37.26 Est GFR (MDRD) Af Amer 52 L Est GFR (MDRD) Non-Af 43 L BUN/Creatinine Ratio 18.7 Glucose 163 H Lactic Acid Calcium 9.3 Total Bilirubin Direct Bilirubin AST ALT Alkaline Phosphatase Ammonia Troponin I High Sens 18 B-Natriuretic Peptide 32.5 Total Protein Albumin Globulin Urine Color Urine Clarity Urine pH Ur Specific [place] Urine Protein Urine Glucose (UA) Urine Ketones Urine Occult Blood Urine Nitrite Urine Bilirubin Urine Urobilinogen Ur Leukocyte Esterase Urine RBC Urine WBC Ur Squamous Epith Cells Urine Bacteria Urine Mucus 08/16/21 08/16/21 08/16/21 11:08 11:35 13:00 WBC RBC Hgb Hct MCV MCH MCHC RDW Std Deviation RDW Coeff of Yusuf Plt Count MPV Immature Gran % (Auto) Neut % (Auto) Lymph % (Auto) [place] % (Auto) Eos % (Auto) Baso % (Auto) Absolute Neuts (auto) Absolute Lymphs (auto) Nucleated RBC % Sodium Potassium Chloride Carbon Dioxide Anion Gap BUN Creatinine Estim Creat Clear Calc Est GFR (MDRD) Af Amer Est GFR (MDRD) Non-Af BUN/Creatinine Ratio Glucose Lactic Acid 1.2 Calcium Total Bilirubin 0.80 Direct Bilirubin 0.18 AST 12 L ALT 18 Alkaline Phosphatase 60 Ammonia Troponin I High Sens B-Natriuretic Peptide Total Protein 6.7 Albumin 3.2 Globulin 3.5 Urine Color Yellow Urine Clarity Clear Urine pH 5.0 Ur Specific [place] 1.025 Urine Protein 100 H Urine Glucose (UA) Normal Urine Ketones 5 H Urine Occult Blood 10 H Urine Nitrite Negative Urine Bilirubin Negative Urine Urobilinogen Normal Ur Leukocyte Esterase Negative Urine RBC 0-5 SEEN Urine WBC 0 SEEN Ur Squamous Epith Cells 0 SEEN Urine Bacteria 0 SEEN Urine Mucus 0 SEEN 08/16/21 13:00 WBC RBC Hgb Hct MCV MCH MCHC RDW Std Deviation RDW Coeff of Yusuf Plt Count MPV Immature Gran % (Auto) Neut % (Auto) Lymph % (Auto) [place] % (Auto) Eos % (Auto) Baso % (Auto) Absolute Neuts (auto) Absolute Lymphs (auto) Nucleated RBC % Sodium Potassium Chloride Carbon Dioxide Anion Gap BUN Creatinine Estim Creat Clear Calc Est GFR (MDRD) Af Amer Est GFR (MDRD) Non-Af BUN/Creatinine Ratio Glucose Lactic Acid Calcium Total Bilirubin Direct Bilirubin AST ALT Alkaline Phosphatase Ammonia 21.0 Troponin I High Sens B-Natriuretic Peptide Total Protein Albumin Globulin Urine Color Urine Clarity Urine pH Ur Specific [place] Urine Protein Urine Glucose (UA) Urine Ketones Urine Occult Blood Urine Nitrite Urine Bilirubin Urine Urobilinogen Ur Leukocyte Esterase Urine RBC Urine WBC Ur Squamous Epith Cells Urine Bacteria Urine Mucus Radiography Diagnostic Testing: Clinical Impression(s) from Imaging Studies Brain CT 08/16/21 10:51 IMPRESSION: Chronic involutional changes of the brain. Electronically Signed: Piero Martinez MD at 12:17 EDT Reading Location ID and State: 994 / [employer] , Service support , Chest X-Ray 08/16/21 12:00 IMPRESSION: Normal x-ray examination of the chest. Electronically Signed: Piero Martinez MD at 12:18 EDT Reading Location ID and State: [place]94 / [employer] , Service support , Lumbar Spine X-Ray 08/16/21 12:00 IMPRESSION: No acute fracture or subluxation. Moderate diffuse degenerative disc disease. Electronically Signed: Piero Martinez MD at 12:18 EDT Reading Location ID and State: [place] / [employer] , Service support , Abdomen/Pelvis CT 08/16/21 12:26 IMPRESSION: No acute abnormality. Electronically Signed: Piero Martinez MD at 13:09 EDT Reading Location ID and State: [place]94 / [employer] , Service support , Discharge Plan Triage Chief Complaint: Weakness ED Midlevel Provider: Vinny Ordoñez ED Provider: Eric Graves Dx/Rx/DC Orders Primary Care Provider: Delano Garcia
[2021-08-16 11:19] LABS: Absolute Lymphocyte Count 1.38 X10^3/uL (0.83-4.51); Absolute Neutrophil Count 11.3 X10^3/uL (2.0-7.7); Basophil# 0.07 X10^3/uL; Basophil% 0.5 % (0-1); Eosinophil# 0.01 X10^3/uL; Eosinophils% 0.1 % (0-5); Hematocrit 46.8 % (40-54); Hemoglobin 16.1 g/dL (13.0-16.5); Lymphocyte # 1.38 X10^3/ul (0.83-4.51); Lymphocyte % 9.6 % (19-41); Mean Corp Hgb Conc 34.4 g/dL (32-36); Mean Corpuscular Hgb 29.4 pg (27.0-32.0); Mean Corpuscular Volume 85.6 fL (80-94); Mean Platelet Vol. 10.5 fl (6.2-12.0); Monocyte# 1.48 X10^3/uL; Monocyte% 10.3 % (0-10); NRBC Flagged by Analyzer 0 % (0-5); Neutrophil # 11.32 X10^3/uL (2.7-7.7); Neutrophil % 78.9 % (47-70); Platelet Count 309 K/mm3 (150-450); RBC Distribution Width CV 13.8 % (11.6-14.6); RBC Distribution Width SD 43.1 fl (35.1-43.9); Red Blood Count 5.47 M/mm3 (4.6-6.2); White Blood Count 14.4 K/mm3 (4.4-11.0)
[2021-08-16 11:35] LABS: Anion Gap 6 (5-15); BUN 31 mg/dL (7-18); BUN/Creat Ratio 18.7 RATIO (10-20); Calcium,Total 9.3 mg/dL (8.5-10.1); Chloride 102 mmol/L (98-107); Creatinine, Serum 1.66 mg/dL (0.70-1.30); EST Glomerular Filtration Rate 43 mL/min (>60); Est Glom Filt Rate - Afr Amer 52 mL/min (>60); Estimated Creatinine Clearance 37.26 ml/min; Glucose 163 mg/dL (74-106); Potassium 3.5 mmol/L (3.5-5.1); Sodium Level 135 mmol/L (136-145); Troponin-I HS 18 pg/mL (3.0-78.0)
[2021-08-16 11:39] LABS: Lactic Acid 1.2 mmol/L (0.4-1.9)
[2021-08-16 11:42] LABS: BNP,B-Type NATRIURETIC PEPTIDE 32.5 pg/mL (0-100)
[2021-08-16 11:46] LABS: Bacteria 0 SEEN /hpf (None Seen); Mucous, Urine 0 SEEN /hpf (<or=2+); Squamous Epithelial Cells - UA 0 SEEN /hpf (0-5); White Blood Cells 0 SEEN /hpf (0-5)
--- NOTE | 2021-08-16 12:00 | RAD_ITS ---
STUDY: X-RAY - LUMBAR SPINE REASON FOR EXAM: Male, 80 years old. fall, back pain TECHNIQUE: 2 view(s) of the lumbar spine were obtained. COMPARISON: 06/25/2017 FINDINGS: Normal lumbar lordosis. There is no substantial scoliosis. There is a normal alignment of the vertebrae. There is multilevel endplate spondylosis of the lumbar vertebrae. There is multi-level degenerative disc disease with multi-level disc space narrowing. The soft tissue structures are unremarkable. RAD/Lumbar Spine 2 or 3 Views IMPRESSION: No acute fracture or subluxation. Moderate diffuse degenerative disc disease. Electronically Signed: Piero Martinez MD at 12:18 EDT ,
--- NOTE | 2021-08-16 12:00 | RAD_ITS ---
STUDY: X-RAY CHEST REASON FOR EXAM: Male, 80 years old. cough TECHNIQUE: Single AP portable view of the chest. COMPARISON: 10/16/2020 FINDINGS: The lungs are clear and expanded. There is no demonstrated pleural abnormality. Normal size heart. Normal mediastinum and david. Normal visualized pulmonary arteries. Normal visualized aortic arch and descending thoracic aorta. Normal visualized thoracic spine. Normal visualized ribs, clavicles, and shoulders. There is no demonstrated abnormality of the visualized soft tissue structures of the upper abdomen. RAD/Chest 1 View (Portable) IMPRESSION: Normal x-ray examination of the chest. Electronically Signed: Piero Martinez MD at 12:18 EDT ,
[2021-08-16 12:04] LABS: Color, Urine Yellow (Yellow); Glucose, Dipstick Normal (Normal); Ketone-Dipstick 5 mg/dl (Negative); Leukocyte Esterase-Dipstick Negative /ul (Negative); Nitrite-Dipstick Negative (Negative); Occult Blood-Urine 10 /ul (Negative); Protein-Dipstick 100 mg/dl (Negative); Specific Gravity, Urine 1.025 (1.002-1.030); Urine Bilirubin Dipstick Negative (Negative); Urine Clarity Clear (Clear); Urine Urobilinogen Normal (Normal)
[2021-08-16 12:11] LABS: Red Blood Cells-Urine 0-5 SEEN /hpf (0-5)
--- NOTE | 2021-08-16 12:26 | CT_ITS ---
STUDY: CT ABDOMEN AND PELVIS WITH CONTRAST REASON FOR EXAM: Male, 80 years old. abdominal pain RADIATION DOSAGE (If Supplied By Facility): CTDIvol = ( 13.14 ) mGy, DLP = ( 1059.80 ) mGycm TECHNIQUE: Transaxial images were obtained from the dome of the diaphragm to the symphysis pubis without oral contrast. IV 100mL [id number]-[id number] was administered. Sagittal and coronal images were reconstructed. Individualized dose optimization techniques were used for this CT. COMPARISON: None. FINDINGS: The visualized lung bases are unremarkable. The visualized portions of the heart are within normal limits. Normal liver. There are surgical clips in the gallbladder fossa consistent with a prior cholecystectomy. Normal spleen. Normal pancreas. Normal bilateral adrenal glands. Normal right kidney. Normal left kidney. Multiple small bilateral renal cysts. Normal visualized stomach. Normal small intestine. Status post right hemicolectomy. The appendix is visualized and appears normal. Normal abdominal aorta. Normal inferior vena cava. Normal retroperitoneum. Normal urinary bladder. There are prostatic calcifications. Normal abdominal wall. There are diffuse degenerative changes of the visualized lumbar spine. CT/Abdomen/Pelvis WITH Contrast IMPRESSION: No acute abnormality. Electronically Signed: Piero Martinez MD at 13:09 EDT ,
[2021-08-16 13:26] LABS: AST(SGOT) 12 U/L (15-37); Alanine Aminotransfer ALT/SGPT 18 U/L (16-61); Albumin, Serum 3.2 g/dL (3.2-5.0); Alkaline Phosphatase 60 U/L (45-117); Bilirubin, Direct 0.18 mg/dL (0.00-0.30); Globulin 3.5 g/dL (2.2-4.2); Protein, Total 6.7 g/dL (6.4-8.2)
--- NOTE | 2021-08-16 14:29 | HP.PCM.HOS_ITS ---
Documented by User: Diamante Shane NP, ASSOCIATE SOFTWARE DEVELOPMENT ENGINEER-C 08/16/21 15:06 HPI - General HPI Narrative LANNY OLIVIER, is a 80 M who presents to the Emergency Room due to confusion. Patient confused during assessment and unable to provide HPI. When asked the month patient states he does not know. For current year he states 888. He does state he has had a cold recently and has not been feeling well. Denies other specific symptoms or complaints. Spoke with patient's son who states patient has not been feeling well for the past few weeks. He was seen at an urgent care and placed on Augmentin. Son reports patient has been significantly weak and falling at home. He denies any confusion at baseline. Son states patient lost his last sibling a few weeks ago and his nerves have been getting to him. He denies other known recent history or symptoms. Per records, he has a history of type 2 diabetes mellitus with polyneuropathy, hypertension, history of tobacco use, BPH with history of TURP, history of colon cancer status post right colectomy, history of viral meningitis. [facility] Medical History Colon cancer Confusion Hypertension Meningitis Mental status change PAD (peripheral artery disease) Personal history of colon cancer Smoker Tobacco abuse Type 2 diabetes mellitus Home Medications insulin aspart U-100 6 units SUBCUT TID 06/25/17 [History Last Taken 08/16/21] insulin glargine 30 unit SQ QHS 04/13/19 [History Last Taken 08/15/21] gabapentin 100 mg PO TID 10/16/20 [History Last Taken 08/16/21] lisinopril-hydrochlorothiazide 1 tab PO DAILY 10/16/20 [History Last Taken 08/15/21] amoxicillin-pot clavulanate 1 tab PO BID 08/16/21 [History Last Taken 08/16/21] metformin 1,000 mg PO BID 08/16/21 [History Last Taken 08/16/21] Allergy/AdvReac Type Severity Reaction Status Date / Time No Known Allergies Allergy Verified 08/16/21 10:22 Family History (Reviewed 08/16/21 @ 14:59 by Diamante Shane ASSOCIATE SOFTWARE DEVELOPMENT ENGINEER, ASSOCIATE SOFTWARE DEVELOPMENT ENGINEER-C) Mother Cancer stomach Father Diabetes Surgical History History of colectomy (~05/2018) History of colonoscopy History of laparoscopic cholecystectomy hx of APLL Social History (Reviewed 08/16/21 @ 14:59 by Diamante Shane ASSOCIATE SOFTWARE DEVELOPMENT ENGINEER, ASSOCIATE SOFTWARE DEVELOPMENT ENGINEER-C) Smoking Status: Current every day smoker tobacco type: cigarettes Tobacco: How many years used: 45 Electronic Cigarette Use: not used second hand exposure: Yes quit status: has quit before alcohol intake: never substance use type: does not use ROS Review of Systems ROS Unobtainable: due to encephalopathy Vital Signs Vital Signs Vital Signs: 08/16/21 10:24 08/16/21 10:26 08/16/21 10:34 Temperature 97.2 F L 97.2 F L Temperature Source Temporal Temporal Pulse Rate 74 74 Respiratory Rate 17 17 Respiratory Effort Normal Non-Labored Respiratory Pattern Tachypnea Blood Pressure 152/75 H 152/75 H Blood Pressure Mean 100 100 Pulse Ox 94 94 Oxygen Delivery Method Room Air Room Air 08/16/21 11:41 08/16/21 12:00 08/16/21 13:46 Temperature 98.5 F 98.5 F 96.8 F L Temperature Source Oral Oral Oral Pulse Rate 71 60 69 Respiratory Rate 20 H 24 H 20 H Respiratory Effort Respiratory Pattern Blood Pressure 109/89 H 147/54 H 146/67 H Blood Pressure Mean 95 85 93 Pulse Ox 95 95 96 Oxygen Delivery Method Room Air Room Air Weight Weight: 202 lb Body Mass Index (BMI) 29.0 Physical Exam Const alert and no apparent distress HEENT normocephalic and moist oral mucous membranes Eyes PERRL, EOMs intact bilaterally and conjunctivae normal Neck no lymphadenopathy Resp normal respiratory effort and clear to auscultation bilaterally Cardio regular rate, regular rhythm and no murmurs Peripheral Pulses: pulses 2+ throughout GI normal to inspection, nondistended, normoactive bowel sounds, non-tender and non-distended Extremity normal to inspection Skin no rashes or lesions noted Lesions: no lesions Rashes: no rashes Trauma: no lacerations or abrasions Neuro CN's II-XII intact bilaterally, no focal motor deficits, no sensory deficits noted and deep tendon reflexes 2+ bilaterally Psych mental status grossly normal and affect normal Results Lab / Micro Data Result Diagrams: 08/16/21 11:08 08/16/21 11:08 Labs: Laboratory Results - last 24 hr 08/16/21 11:08: WBC 14.4 H, RBC 5.47, Hgb 16.1, Hct 46.8, MCV 85.6, MCH 29.4, MCHC 34.4, RDW Std Deviation 43.1, RDW Coeff of Yusuf 13.8, Plt Count 309, MPV 10.5, Immature Gran % (Auto) 0.600, Neut % (Auto) 78.9 H, Lymph % (Auto) 9.6 L, [place] % (Auto) 10.3 H, Eos % (Auto) 0.1, Baso % (Auto) 0.5, Absolute Neuts (auto) 11.3 H, Absolute Lymphs (auto) 1.38, Nucleated RBC % 0 08/16/21 11:08: Sodium 135 L, Potassium 3.5, Chloride 102, Carbon Dioxide 27.0, Anion Gap 6, BUN 31 H, Creatinine 1.66 H, Estim Creat Clear Calc 37.26, Est GFR (MDRD) Af Amer 52 L, Est GFR (MDRD) Non-Af 43 L, BUN/Creatinine Ratio 18.7, Glucose 163 H, Calcium 9.3, Troponin I High Sens 18 08/16/21 11:08: B-Natriuretic Peptide 32.5 08/16/21 11:08: Lactic Acid 1.2 08/16/21 11:35: Urine Color Yellow, Urine Clarity Clear, Urine pH 5.0, Ur Specific [place] 1.025, Urine Protein 100 H, Urine Glucose (UA) Normal, Urine Ketones 5 H, Urine Occult Blood 10 H, Urine Nitrite Negative, Urine Bilirubin Negative, Urine Urobilinogen Normal, Ur Leukocyte Esterase Negative, Urine RBC 0-5 SEEN, Urine WBC 0 SEEN, Ur Squamous Epith Cells 0 SEEN, Urine Bacteria 0 SEEN, Urine Mucus 0 SEEN 08/16/21 13:00: Total Bilirubin 0.80, Direct Bilirubin 0.18, AST 12 L, ALT 18, Alkaline Phosphatase 60, Total Protein 6.7, Albumin 3.2, Globulin 3.5 08/16/21 13:00: Ammonia 21.0 Micro: Microbiology 08/16/21 12:30 Mucosa - Nose Influenza Types A,B Direct FA (LAURA) - Final 08/16/21 11:23 Nasal Secretion SARS-CoV-2 Antigen (Rapid) - Final Radiology Impression Brain CT 08/16/21 10:51 IMPRESSION: Chronic involutional changes of the brain. Electronically Signed: Piero Martinez MD at 12:17 EDT , Chest X-Ray 08/16/21 12:00 IMPRESSION: Normal x-ray examination of the chest. Electronically Signed: Piero Martinez MD at 12:18 EDT , Lumbar Spine X-Ray 08/16/21 12:00 IMPRESSION: No acute fracture or subluxation. Moderate diffuse degenerative disc disease. Electronically Signed: Piero Martinez MD at 12:18 EDT Reading Location ID and State: [id number] / [employer] , Service support , Abdomen/Pelvis CT 08/16/21 12:26 IMPRESSION: No acute abnormality. Electronically Signed: Piero Martinez MD at 13:09 EDT , Assessment & Plan Assessment/Plan (1) Mental status change: PLAN: 1. Acute encephalopathy-infectious versus metabolic? UA and chest x-ray unremarkable. Patient's son reports recent cold. Mild leukocytosis. Afebrile. Obtain MRI of brain. PT/OT. 2. Type 2 diabetes mellitus with zypkjkfvlgfasv-Dxhl-Jozfb with sliding scale insulin. Continue home insulin regimen. 3. Hypertension-stable, continue lisinopril/HCTZ. 4. History of tobacco use-encouraged cessation. 5. History of colon cancer status post right colectomy 6. History of BPH status post TURP 7. Chronic kidney disease stage IIIa-appears at baseline, trend BMP. 8. History of viral meningitis (2018) DVT prophylaxis- heparin sc This patient was seen by ELIZABETH Boudreaux under the supervision of Dr. Saavedra. Time spent examining patient, reviewing data and subsequent management of care: 18 minutes Documented by User: Dr. Yoel Saavedra, DO 08/16/21 18:19 HPI - General General Date of Admission: 08/16/21 [facility] Medical History Colon cancer Confusion Hypertension Meningitis Mental status change PAD (peripheral artery disease) Personal history of colon cancer Smoker Tobacco abuse Type 2 diabetes mellitus Home Medications insulin aspart U-100 6 units SUBCUT TID 06/25/17 [History Last Taken 08/16/21] insulin glargine 30 unit SQ QHS 04/13/19 [History Last Taken 08/15/21] gabapentin 100 mg PO TID 10/16/20 [History Last Taken 08/16/21] lisinopril-hydrochlorothiazide 1 tab PO DAILY 10/16/20 [History Last Taken 08/15/21] amoxicillin-pot clavulanate 1 tab PO BID 08/16/21 [History Last Taken 08/16/21] metformin 1,000 mg PO BID 08/16/21 [History Last Taken 08/16/21] Allergy/AdvReac Type Severity Reaction Status Date / Time No Known Allergies Allergy Verified 08/16/21 10:22 Family History Mother Cancer stomach Father Diabetes Surgical History History of colectomy (~05/2018) History of colonoscopy History of laparoscopic cholecystectomy hx of APLL Social History Smoking Status: Current every day smoker tobacco type: cigarettes Tobacco: How many years used: 45 Electronic Cigarette Use: not used second hand exposure: Yes quit status: has quit before alcohol intake: never substance use type: does not use Results Lab / Micro Data Result Diagrams: 08/16/21 11:08 08/16/21 11:08 Charges/Coding Addendum Addendum: Patient was seen and Ament independently of Diamante Shane today, he was brought to the ER today at [facility] for evaluation of confusion this been going on for approximately the last 2 weeks according to his family members. Review of systems could not be obtained from the patient due to cognitive impairment. According to the ER, patient has been having problems with confusion and mental status change control manager the last 2 weeks according to family members. On examination he appeared his stated age. Vital signs as documented. Skin warm and dry and without overt rashes. Neck without JVD, neck was supple, trachea midline, thyroid was normal. Lungs clear bilaterally, normal air movement was noted. Heart exam notable for regular rhythm, normal sounds and absence of murm urs, rubs or gallops. Abdomen unremarkable and without evidence of organomegaly, masses, or abdominal aortic enlargement. Bowel sounds are present, abdomen is not distended. Extremities nonedematous, no cyanosis was noted, no clubbing was noted. Neuro: Cranial nerves II through XII are grossly intact, no focal motor deficits were noted, sensation to light touch and pinprick intact, motor exam 5 /5 throughout. Psych: Patient is alert, he knows the year, he knows he is in the hospital, he does not know the month, he is oriented as to self Labs were obtained, patient had a 14.4 white blood cell count, hemoglobin was unremarkable, creatinine was 1.66, BUN was 31, sodium was 135, and glucose was 163. Urinalysis was unremarkable, CT of the brain showed chronic involutional changes of the brain, patient had an abdominal and pelvis CT performed that was unremarkable. Impression: #1 acute encephalopathy-etiology unclear-patient will be admitted to PCU, he will be seen by PT and OT, patient's medications will be reviewed and medications will be stopped that may interfere with the patient's cognitive function. #2 type 2 diabetes-patient's blood sugars will be monitored, sliding scale i nsulin will be administered #3 essential hypertension-patient will remain on his outpatient medication #4 chronic kidney disease stage IIIb-secondary to type 2 diabetes-labs will be monitored I have reviewed Diamante Shane's history and physical including her medical assessment and plan of care and with the above additions endorse it. Total clinical time spent by myself addressing the patient's issues, reviewing the patient's medical data, and collaborating with the patient's care team: 55 minutes Visit Charges Inpatient E&M: 31354 Init Hosp L3
--- NOTE | 2021-08-16 14:36 | MRI_ITS ---
STUDY: MRI BRAIN WITHOUT CONTRAST REASON FOR EXAM: Male, 80 years old. Encephalopathy Increased generalized weakness, lethargy, AMS TECHNIQUE: Standardized multiplanar fat and water weighted pulse sequences were obtained. COMPARISON: Head CT dated August 16, 2021 FINDINGS: There is mild cerebral atrophy with widening of the extra-axial spaces and ventricular dilatation. There are a limited number of small white matter hyperintensities, distributed throughout the deep white matter tracts of the cerebral hemispheres, consistent with mild chronic white matter ischemic changes. There is no evidence for recent intracranial ischemia or other cause of cytotoxic edema on diffusion weighted imaging (DWI). Normal T2* images of the brain without demonstrated susceptibility artifact. There is no demonstrated hemosiderin stain. Normal bilateral frontal poles, and orbital frontal and gyrus recti of the frontal lobes. Normal bilateral temporal tips of the temporal lobes. There are no white matter shear injuries (diffuse axonal injuries). There are no parenchymal hemorrhages or hematomas. There are no findings to suggest prior closed head parenchymal injury of the brain. Normal bilateral basal ganglia. Normal thalami. There is no extra-axial fluid accumulation. Normal flow voids within the major intracranial circulation suggesting patency by spin echo criteria. Normal sella turcica, pituitary gland, infundibular stalk, optic chiasm and hypothalamus. Normal tectal plate and pineal gland. Normal midbrain, primitivo and medulla. Normal cerebellum. Normal basal cisterns. Normal bilateral temporal bones. Normal bilateral internal auditory canals. No demonstrated orbital abnormality, within the constraints of a routine brain study. Normal visualized paranasal sinuses. Normal calvarium and skull base. Normal visualized soft tissue structures. Normal visualized upper cervical spine. MRI/Brain without Contrast IMPRESSION: 1. Involutional changes of the brain, as described above. 2. No acute infarct or intracranial hemorrhage. Electronically Signed: Rolando Mckeon MD at 21:49 EDT ,
[2021-08-16 16:41] LABS: Bedside Glucose 135 mg/dL (74-106)
[2021-08-16] MEDS: Insulin Lispro 100 UNIT/ML INSULN.PEN 6 UNIT SC (18:12)
[2021-08-16] MEDS: Amox/Clavulanate 875 MG Tablet PO (18:12)
[2021-08-16] MEDS: 0.9% Saline Lock 10 ML Syringe IV (18:14)
[2021-08-16 22:19] LABS: Thyroid Stim Hormone (TSH) 0.22 uIU/mL (0.358-3.74)
[2021-08-16] MEDS: Heparin Injection (Vial) 5,000 UNIT/ML VIAL 5000 UNIT SC (23:56)
[2021-08-17 01:36] LABS: Bedside Glucose 142 mg/dL (74-106)
[2021-08-17 03:40] VITALS: BP 139/62; PULSE 67; RESP 16; TEMP 36.6; O2SAT 95
[2021-08-17 06:00] LABS: Absolute Lymphocyte Count 1.67 X10^3/uL (0.83-4.51); Absolute Neutrophil Count 7.4 X10^3/uL (2.0-7.7); Basophil# 0.06 X10^3/uL; Basophil% 0.5 % (0-1); Eosinophil# 0.11 X10^3/uL; Hematocrit 43.9 % (40-54); Hemoglobin 14.7 g/dL (13.0-16.5); Lymphocyte # 1.67 X10^3/ul (0.83-4.51); Lymphocyte % 15.1 % (19-41); Mean Corp Hgb Conc 33.5 g/dL (32-36); Mean Corpuscular Hgb 28.1 pg (27.0-32.0); Mean Corpuscular Volume 83.8 fL (80-94); Mean Platelet Vol. 10.2 fl (6.2-12.0); Monocyte# 1.77 X10^3/uL; NRBC Flagged by Analyzer 0 % (0-5); Neutrophil # 7.39 X10^3/uL (2.7-7.7); Neutrophil % 66.9 % (47-70); POSITIVE DIFFERENTIAL YES; Platelet Count 270 K/mm3 (150-450); RBC Distribution Width CV 13.9 % (11.6-14.6); RBC Distribution Width SD 41.9 fl (35.1-43.9); Red Blood Count 5.24 M/mm3 (4.6-6.2); White Blood Count 11.1 K/mm3 (4.4-11.0)
[2021-08-17 06:06] LABS: Differential Indicated SCAN CRITERIA MET
[2021-08-17 06:23] LABS: Differential Comment SCANNED
[2021-08-17 06:45] LABS: Anion Gap 8 (5-15); BUN 26 mg/dL (7-18); BUN/Creat Ratio 20.8 RATIO (10-20); Calcium,Total 8.8 mg/dL (8.5-10.1); Chloride 105 mmol/L (98-107); Creatinine, Serum 1.25 mg/dL (0.70-1.30); EST Glomerular Filtration Rate 59 mL/min (>60); Est Glom Filt Rate - Afr Amer 72 mL/min (>60); Estimated Creatinine Clearance 49.48 ml/min; Glucose 145 mg/dL (74-106); Potassium 3.6 mmol/L (3.5-5.1); Sodium Level 135 mmol/L (136-145)
[2021-08-17 06:53] VITALS: PULSE 52
[2021-08-17] MEDS: Gabapentin 100 MG Capsule PO ×4 (07:00→21:12)
[2021-08-17 07:11] LABS: Bedside Glucose 144 mg/dL (74-106)
[2021-08-17 09:28] VITALS: BP 131/58; PULSE 66; RESP 18; TEMP 36.5; O2SAT 96
[2021-08-17] MEDS: Heparin Injection (Vial) 5,000 UNIT/ML VIAL 5000 UNIT SC ×2 (09:34→21:12)
[2021-08-17] MEDS: Lisinopril 20 MG Tablet PO (09:34)
[2021-08-17] MEDS: hydroCHLOROthiazide 25 MG Tablet PO (09:34)
[2021-08-17] MEDS: Amox/Clavulanate 875 MG Tablet PO ×2 (09:34→17:23)
[2021-08-17] MEDS: Insulin Lispro 100 UNIT/ML INSULN.PEN 6 UNIT SC ×3 (09:36→17:24)
[2021-08-17] MEDS: Glucerna Shake 120 ML LIQUID PO ×3 (09:37→17:25)
--- NOTE | 2021-08-17 11:57 | PCM.PN.HOSP ---
Documented by User: Diamante Shane COMBINATION MACHINE TOOL OPERATOR, COMBINATION MACHINE TOOL OPERATOR-C 08/17/21 12:06 Subjective Subjective Patient seen and examined. Mental status improved however still confused at times. Thinks he is at [facility]. States he does not feel well however denies specific complaints. Objective Data Objective Data Vital Signs: Vital Signs Temp Pulse Resp BP Pulse Ox 97.7 F L 66 18 131/58 H 96 08/17/21 09:28 08/17/21 09:28 08/17/21 09:28 08/17/21 09:28 08/17/21 09:28 Oxygen Delivery Method Room Air Weight: 195 lb 12.328 oz Body Mass Index (BMI) 28.0 Intake & Output: Intake and Output for Last 24 Hours 08/15/21 08/16/21 08/17/21 23:59 23:59 23:59 Intake Total 1000 / 1000 Balance 1000 / 1000 Lab / Micro Data Result Diagrams: 08/17/21 05:20 08/17/21 05:20 Labs: Laboratory Results - last 24 hr 08/16/21 11:35: Urine Color Yellow, Urine Clarity Clear, Urine pH 5.0, Ur Specific [place] 1.025, Urine Protein 100 H, Urine Glucose (UA) Normal, Urine Ketones 5 H, Urine Occult Blood 10 H, Urine Nitrite Negative, Urine Bilirubin Negative, Urine Urobilinogen Normal, Ur Leukocyte Esterase Negative, Urine RBC 0-5 SEEN, Urine WBC 0 SEEN, Ur Squamous Epith Cells 0 SEEN, Urine Bacteria 0 SEEN, Urine Mucus 0 SEEN 08/16/21 13:00: Total Bilirubin 0.80, Direct Bilirubin 0.18, AST 12 L, ALT 18, Alkaline Phosphatase 60, Total Protein 6.7, Albumin 3.2, Globulin 3.5 08/16/21 13:00: Ammonia 21.0 08/16/21 13:00: Magnesium 2.0, TSH 0.22 L 08/16/21 16:36: POC Glucose 135 H 08/16/21 23:55: POC Glucose 142 H 08/17/21 05:20: WBC 11.1 H, RBC 5.24, Hgb 14.7, Hct 43.9, MCV 83.8, MCH 28.1, MCHC 33.5, RDW Std Deviation 41.9, RDW Coeff of Yusuf 13.9, Plt Count 270, MPV 10.2, Immature Gran % (Auto) 0.500, Neut % (Auto) 66.9, Lymph % (Auto) 15.1 L, [place] % (Auto) 16.0 H, Eos % (Auto) 1.0, Baso % (Auto) 0.5, Absolute Neuts (auto) 7.4, Absolute Lymphs (auto) 1.67, Nucleated RBC % 0, Differential Comment SCANNED, Diff Path Review September08/17/21 05:20: Sodium 135 L, Potassium 3.6, Chloride 105, Carbon Dioxide 22.0, Anion Gap 8, BUN 26 H, Creatinine 1.25, Estim Creat Clear Calc 49.48, Est GFR (MDRD) Af Amer 72, Est GFR (MDRD) Non-Af 59 L, BUN/Creatinine Ratio 20.8 H, Glucose 145 H, Calcium 8.8 08/17/21 07:02: POC Glucose 144 H Micro: Microbiology 08/16/21 12:30 Mucosa - Nose Influenza Types A,B Direct FA (LAURA) - Final 08/16/21 11:23 Nasal Secretion SARS-CoV-2 Antigen (Rapid) - Final Radiography Diagnostic Testing: Radiology Impression Brain CT 08/16/21 10:51 IMPRESSION: Chronic involutional changes of the brain. Electronically Signed: Piero Martinez MD at 12:17 EDT Reading Location ID and State: [id number] / [employer] Tel , Service support , Chest X-Ray 08/16/21 12:00 IMPRESSION: Normal x-ray examination of the chest. Electronically Signed: Piero Martinez MD at 12:18 EDT Reading Location ID and State: [id number] / [employer] Tel , Service support , Lumbar Spine X-Ray 08/16/21 12:00 IMPRESSION: No acute fracture or subluxation. Moderate diffuse degenerative disc disease. Electronically Signed: Piero Martinez MD at 12:18 EDT Reading Location ID and State: [id number] / [employer] Tel , Service support , Abdomen/Pelvis CT 08/16/21 12:26 IMPRESSION: No acute abnormality. Electronically Signed: Piero Martinez MD at 13:09 EDT , Brain MRI 08/16/21 14:36 IMPRESSION: 1. Involutional changes of the brain, as described above. 2. No acute infarct or intracranial hemorrhage. Electronically Signed: Rolando Mckeon MD at 21:49 EDT , Physical Exam Const alert and no apparent distress Orientation / Consciousness: awake, oriented to person and oriented to time HEENT normocephalic Mouth: dry mucous membranes Eyes PERRL, EOMs intact bilaterally and conjunctivae normal Neck no lymphadenopathy Resp normal respiratory effort and clear to auscultation bilaterally Cardio regular rate, regular rhythm and no murmurs Peripheral Pulses: pulses 2+ throughout GI normal to inspection, nondistended, normoactive bowel sounds, non-tender and non-distended Extremity normal to inspection Skin no rashes or lesions noted Lesions: no lesions Rashes: no rashes Trauma: no lacerations or abrasions Neuro CN's II-XII intact bilaterally, no focal motor deficits, no sensory deficits noted and deep tendon reflexes 2+ bilaterally Psych mental status grossly normal and affect normal Assessment & Plan Assessment/Plan (1) Mental status change: PLAN: 1. Acute encephalopathy-infectious versus metabolic? UA and chest x-ray unremarkable. Patient's son reports recent cold. Influenza and Covid negative. Mild leukocytosis. Afebrile. MRI of brain negative. PT/OT. Blood cultures pending. Will need SNF at discharge for rehab. CM consulted. 2. Type 2 diabetes mellitus with chpgkrazfwowgw-Oegf-Mnsot with sliding scale insulin. Continue home insulin regimen. 3. Hypertension-stable, continue lisinopril/HCTZ. 4. History of tobacco use-encouraged cessation. 5. History of colon cancer status post right colectomy 6. History of BPH status post TURP 7. Chronic kidney disease stage IIIa-appears at baseline, trend BMP. 8. History of viral meningitis (2018) DVT prophylaxis- heparin sc This patient was seen by Diamante Shane NP-C under the supervision of Dr. Saavedra. Time spent examining patient, reviewing data and subsequent management of care: 12 minutes Documented by User: Dr. Yoel Saavedra DO 08/17/21 12:23 Objective Data Lab / Micro Data Result Diagrams: 08/17/21 05:20 08/17/21 05:20 Charges/Coding Addendum Addendum: Patient was seen and examined independently of Diamante Shane today, his MRI did not show any acute pathology, there is no evidence of an old stroke either. Patient is alert this morning, he seems a little slow in answering questions, he was able to tell me the month and the year but he thought he was in [facility]. On examination he appeared his stated age. Vital signs as documented. Skin warm and dry and without overt rashes. Neck without JVD, neck was supple, trachea midline, thyroid was normal. Lungs clear bilaterally, normal air movement was noted. Heart exam notable for regular rhythm, normal sounds and absence of murmurs, rubs or gallops. Abdomen unremarkable and without evidence of organomegaly, masses, or abdominal aortic enlargement. Bowel sounds are present, abdomen is not distended. Extremities nonedematous, no cyanosis was noted, no clubbing was noted. Neuro: Cranial nerves II through XII are grossly intact, no focal motor deficits were noted, sensation to light touch and pinprick intact, motor exam 5/5 throughout. Psych: Patient is alert, he is oriented as to time and person. He seems to deny he is in the hospital but he had the hospital location wrong. #1 acute encephalopathy-etiology unclear-I believe the patient may have early Alzheimer's dementia, I do not think he has severe depression. #2 type 2 diabetes-patient's blood sugars will be monitored, sliding scale insulin will be administered #3 essential hypertension-patient will remain on his outpatient medication #4 chronic kidney disease stage IIIb-secondary to type 2 diabetes-labs will be monitored #5 acute debility-patient states that he feels fatigued, I told him that we were trying to get him into a skilled facility for rehab services. I have reviewed Diamante Shane's progress note including her medical assessment and plan of care and endorse it with the above additions. Total clinical time spent by myself addressing the patient's medical issues, reviewing the patient's medical data, and collaborating with the patient's care team: 20 minutes Visit Charges Inpatient E&M: [id number] Subs Hosp L2
[2021-08-17] MEDS: Insulin Lispro 100 UNIT/ML INSULN.PEN SC (12:08)
[2021-08-17 13:31] LABS: Bedside Glucose 228 mg/dL (74-106)
--- NOTE | 2021-08-17 15:45 | CASEMGMT ---
RN CHAD ACCOUNT CONSULTANT CM to room to meet with patient for initial transition planning/care coordination assessment. TYRESE BONILLA introduced self and role at [facility].Pt resting in bed in no distress at this time.? Pt able to answer some questions, but states unable to remember all the info and states for RN CHAD to ask his . Call placed to pt's while TYRESE BONILLA @ bedside w/pt. Care providers, pharmacy, and demographics verified/updated at this time. PCP: Dr Garcia Specialists: Dr Russell-urology Preferred Pharmacy: [facility] Retail Insurance: [employer], [employer] Prescription Benefit:? Yes LNOK: , Adriana. 3 living children. Living Arrangements: Lives w/ in 2-story home. [employer]. 3 steps to enter. Pt was independent until this past week, when he had a fall and has been having some difficulty since. Transportation: Pt drives. does not drive. DME: Has the following DME:?functioning glucometer w/supplies. Has cane and shower chair, but does not use. ?HHC/SNF: No hx of HHC, but has been to [facility] in the past. TYRESE BONILLA spoke w/therapy, who recommends SNF. Pt and made aware. feels it would be safest for pt to go to SNF for short-term, as their sons work and are unable to assist w/pt. Pt is agreeable. states TCU would be her 1st choice. Idania SANTIAGO, made aware. PLAN: ?SNF [facility] TYRESE BONILLA
--- NOTE | 2021-08-17 16:09 | CASEMGMT ---
Social Work Consult: long-term placement Referral source: RN CHAD Met with patient in room. Introduced self and psychosocial rehabilitation counselor role. Patient agreeable to speak with this psychosocial rehabilitation counselor. This psychosocial rehabilitation counselor broached topic of senior living placement for patient. Patient is agreeable to senior living placement with first choice being TCU. This psychosocial rehabilitation counselor provided patient with list of in-network nursing facilities that are local to patient geographical region and encouraged patient to look over list for second option of SNF if TCU does not have an open bed. Patient reports that main person to contact is patient spouse, Adriana and is agreeable to this psychosocial rehabilitation counselor calling Elida to discuss above information. Telephone call to Adriana, this psychosocial rehabilitation counselor introduced self and psychosocial rehabilitation counselor role. Adriana agreeable to speak with this psychosocial rehabilitation counselor. This psychosocial rehabilitation counselor updated Adriana on above information. Adriana confirms that first choice is TCU. Adriana aware of list being left in patient room and request for a second senior living choice to be established. Adriana reports not [facility]. Patient with history of placement to [facility]. Adriana plans to look over senior living list and come up with second option. Telephone call to Charlee SOL. Confidential voicemail left for Charlee. Patient to be placed on referral list for TCU. PLAN: SNF, undetermined which facility. MADDY Lopez
[2021-08-17 16:41] VITALS: BP 133/61; PULSE 66; RESP 30; TEMP 37; O2SAT 96
[2021-08-17 16:41] LABS: Bedside Glucose 142 mg/dL (74-106)
[2021-08-17 17:30] VITALS: BP 129/55; PULSE 69; RESP 18; TEMP 37.7; O2SAT 95
[2021-08-17 21:10] VITALS: BP 142/60; PULSE 68; RESP 18; TEMP 37; O2SAT 96
[2021-08-17] MEDS: Insulin Glargine-YFGN 100 UNIT/ML Pen 30 UNIT SC (21:13)
[2021-08-17 21:26] LABS: Bedside Glucose 143 mg/dL (74-106)
[2021-08-18 03:10] VITALS: BP 168/56; PULSE 68; RESP 18; TEMP 36.9; O2SAT 94
[2021-08-18 05:27] LABS: Absolute Lymphocyte Count 1.46 X10^3/uL (0.83-4.51); Absolute Neutrophil Count 9.6 X10^3/uL (2.0-7.7); Basophil# 0.06 X10^3/uL; Basophil% 0.5 % (0-1); Eosinophil# 0.05 X10^3/uL; Eosinophils% 0.4 % (0-5); Hematocrit 43.9 % (40-54); Hemoglobin 14.8 g/dL (13.0-16.5); Lymphocyte # 1.46 X10^3/ul (0.83-4.51); Lymphocyte % 11.7 % (19-41); Mean Corp Hgb Conc 33.7 g/dL (32-36); Mean Corpuscular Hgb 27.8 pg (27.0-32.0); Mean Corpuscular Volume 82.5 fL (80-94); Mean Platelet Vol. 10.3 fl (6.2-12.0); Monocyte# 1.27 X10^3/uL; Monocyte% 10.2 % (0-10); NRBC Flagged by Analyzer 0 % (0-5); Neutrophil % 76.7 % (47-70); Platelet Count 286 K/mm3 (150-450); RBC Distribution Width CV 13.8 % (11.6-14.6); RBC Distribution Width SD 41.2 fl (35.1-43.9); Red Blood Count 5.32 M/mm3 (4.6-6.2); White Blood Count 12.5 K/mm3 (4.4-11.0)
[2021-08-18 05:47] LABS: Anion Gap 5 (5-15); BUN 23 mg/dL (7-18); BUN/Creat Ratio 16.5 RATIO (10-20); Calcium,Total 8.9 mg/dL (8.5-10.1); Chloride 102 mmol/L (98-107); Creatinine, Serum 1.39 mg/dL (0.70-1.30); EST Glomerular Filtration Rate 52 mL/min (>60); Est Glom Filt Rate - Afr Amer 63 mL/min (>60); Estimated Creatinine Clearance 44.49 ml/min; Glucose 153 mg/dL (74-106); Potassium 3.6 mmol/L (3.5-5.1); Sodium Level 135 mmol/L (136-145)
[2021-08-18] MEDS: Gabapentin 100 MG Capsule PO ×2 (08:17→21:33)
[2021-08-18] MEDS: Heparin Injection (Vial) 5,000 UNIT/ML VIAL 5000 UNIT SC ×2 (08:17→21:33)
[2021-08-18] MEDS: Amox/Clavulanate 875 MG Tablet PO ×2 (08:17→16:28)
[2021-08-18] MEDS: Insulin Lispro 100 UNIT/ML INSULN.PEN 6 UNIT SC ×3 (08:18→16:27)
[2021-08-18] MEDS: hydroCHLOROthiazide 25 MG Tablet PO (08:18)
[2021-08-18] MEDS: Lisinopril 20 MG Tablet PO (08:18)
[2021-08-18] MEDS: Insulin Lispro 100 UNIT/ML INSULN.PEN SC ×4 (08:19→21:33)
[2021-08-18] MEDS: Glucerna Shake 120 ML LIQUID PO ×3 (08:36→16:28)
[2021-08-18 08:48] VITALS: BP 125/65; PULSE 74; RESP 18; TEMP 36.7; O2SAT 94
[2021-08-18 11:46] LABS: Bedside Glucose 195 mg/dL (74-106)
--- NOTE | 2021-08-18 12:54 | PCM.PN.HOSP ---
Documented by User: Diamante Shane NP, CHILDBIRTH AND INFANT CARE TEACHER-C 08/18/21 13:01 Subjective Subjective Patient seen and examined. Alert and oriented this morning. Continues to report significant weakness and fatigue. Denies fever, chills. Denies other symptoms or complaints. Objective Data Objective Data Vital Signs: Vital Signs Temp Pulse Resp BP Pulse Ox 98.0 F 74 18 125/65 H 94 08/18/21 08:48 08/18/21 08:48 08/18/21 08:48 08/18/21 08:48 08/18/21 08:48 Oxygen Delivery Method Room Air Weight: 195 lb 12.3 oz Body Mass Index (BMI) 28.0 Intake & Output: Intake and Output for Last 24 Hours 08/16/21 08/17/21 08/18/21 23:59 23:59 23:59 Intake Total 1000 / 1000 1135 / 1135 120 / 120 Output Total 950 / 950 125 / 125 Balance 1000 / 1000 185 / 185 -5 / -5 Lab / Micro Data Result Diagrams: 08/18/21 04:48 08/18/21 04:48 Labs: Laboratory Results - last 24 hr 08/17/21 12:03: POC Glucose 228 H 08/17/21 16:28: POC Glucose 142 H 08/17/21 21:11: POC Glucose 143 H 08/18/21 04:48: WBC 12.5 H, RBC 5.32, Hgb 14.8, Hct 43.9, MCV 82.5, MCH 27.8, MCHC 33.7, RDW Std Deviation 41.2, RDW Coeff of Yusuf 13.8, Plt Count 286, MPV 10.3, Immature Gran % (Auto) 0.500, Neut % (Auto) 76.7 H, Lymph % (Auto) 11.7 L, [place] % (Auto) 10.2 H, Eos % (Auto) 0.4, Baso % (Auto) 0.5, Absolute Neuts (auto) 9.6 H, Absolute Lymphs (auto) 1.46, Nucleated RBC % 0 08/18/21 04:48: Sodium 135 L, Potassium 3.6, Chloride 102, Carbon Dioxide 28.0, Anion Gap 5, BUN 23 H, Creatinine 1.39 H, Estim Creat Clear Calc 44.49, Est GFR (MDRD) Af Amer 63, Est GFR (MDRD) Non-Af 52 L, BUN/Creatinine Ratio 16.5, Glucose 153 H, Calcium 8.9 08/18/21 11:17: POC Glucose 195 H Micro: Microbiology 08/17/21 15:30 Mucosa - Nasopharyngeal Respiratory Panel (PCR) - Final 08/16/21 12:30 Mucosa - Nose Influenza Types A,B Direct FA (LAURA) - Final 08/16/21 11:23 Nasal Secretion SARS-CoV-2 Antigen (Rapid) - Final Physical Exam Const alert, oriented x3 and no apparent distress Orientation / Consciousness: awake, oriented to person, oriented to place and oriented to time HEENT normocephalic and moist oral mucous membranes Eyes PERRL, EOMs intact bilaterally and conjunctivae normal Neck no lymphadenopathy Resp normal respiratory effort and clear to auscultation bilaterally Cardio regular rate, regular rhythm and no murmurs Peripheral Pulses: pulses 2+ throughout GI normal to inspection, nondistended, normoactive bowel sounds, non-tender and non-distended Extremity normal to inspection Skin no rashes or lesions noted Lesions: no lesions Rashes: no rashes Trauma: no lacerations or abrasions Neuro CN's II-XII intact bilaterally, no focal motor deficits, no sensory deficits noted and deep tendon reflexes 2+ bilaterally Psych mental status grossly normal and affect normal Assessment & Plan Assessment/Plan (1) Mental status change: PLAN: 1. Acute encephalopathy-infectious versus metabolic? UA and chest x-ray unremarkable. Patient's son reports recent cold. Influenza, resp panel and Covid negative. Mild leukocytosis. Afebrile. MRI of brain negative. PT/OT. Blood cultures pending. Will need SNF at discharge for rehab. CM consulted. 2. Type 2 diabetes mellitus with btiveuvsejrhrk-Fpeh-Fijgc with sliding scale insulin. Continue home insulin regimen. 3. Hypertension-stable, continue lisinopril/HCTZ. 4. History of tobacco use-encouraged cessation. 5. History of colon cancer status post right colectomy 6. History of BPH status post TURP 7. Chronic kidney disease stage IIIa-appears at baseline, trend BMP. 8. History of viral meningitis (2018) DVT prophylaxis- heparin sc This patient was seen by ELIZABETH Boudreaux under the supervision of Dr. Saavedra. Time spent examining patient, reviewing data and subsequent management of care: 12 minutes Documented by User: Dr. Yoel Saavedra DO 08/18/21 16:21 Objective Data Lab / Micro Data Result Diagrams: 08/18/21 04:48 08/18/21 04:48 Charges/Coding Addendum Addendum: Patient was seen and examined independently of Diamante Shane, he is alert, he does not complain of any shortness of breath or chest discomfort. Patient can answer simple questions appropriately-he still remains confused overall. On examination he appeared his stated age. Vital signs as documented. Skin warm and dry and without overt rashes. Neck without JVD, neck was supple, trachea midline, thyroid was normal. Lungs clear bilaterally, normal air movement was noted. Heart exam notable for regular rhythm, normal sounds and absence of murmurs, rubs or gallops. Abdomen unremarkable and without evidence of organomegaly, masses, or abdominal aortic enlargement. Bowel sounds are present, abdomen is not distended. Extremities nonedematous, no cyanosis was noted, no clubbing was noted. Neuro: Cranial nerves II through XII are grossly intact, no focal motor deficits were noted, sensation to light touch and pinprick intact, motor exam 5/5 throughout. Psych: Patient is alert, he is oriented as to time and person. #1 acute encephalopathy-etiology unclear-I believe the patient may have early Alzheimer's dementia, I do not think he has severe depression. Continue supportive care, patient will need placement [facility] for inpatient rehab services. #2 type 2 diabetes-patient's blood sugars will be monitored, sliding scale insulin will be administered #3 essential hypertension-patient will remain on his outpatient medication #4 chronic kidney disease stage IIIb-secondary to type 2 diabetes-labs will be monitored #5 acute debility-PT and OT will continue, again patient will need placement in the [place] I have reviewed Diamante Shane's progress note including her medical assessment and plan of care with the above additions endorse it. Total clinical time spent by myself addressing the patient's medical needs, reviewing the patient's medical data, and collaborating with the patient's caregivers: 20 minutes Visit Charges Inpatient E&M: 39994 Subs Hosp L2
[2021-08-18] MEDS: Acetaminophen 325 MG Tablet 650 MG PO (16:37)
[2021-08-18 16:41] LABS: Bedside Glucose 174 mg/dL (74-106)
[2021-08-18 16:47] VITALS: BP 114/52; PULSE 76; RESP 16; TEMP 36.6; O2SAT 95
--- NOTE | 2021-08-18 18:55 | NURSING ---
Attends gregory and stefani dawn had the same amt it did this morning. This nurse bladder scanned for >682. No orders to st. cath. Will notify Dr. Saavedra.
[2021-08-18 20:05] VITALS: BP 110/56; PULSE 52; RESP 20; TEMP 36.4; O2SAT 97
[2021-08-18] MEDS: Insulin Glargine-YFGN 100 UNIT/ML Pen 30 UNIT SC (21:34)
[2021-08-18 21:46] LABS: Bedside Glucose 177 mg/dL (74-106)
[2021-08-18] MEDS: Tamsulosin HCl 0.4 MG Capsule PO (21:51)
[2021-08-19 02:09] VITALS: BP 124/64; PULSE 61; RESP 18; TEMP 36.6; O2SAT 94
[2021-08-19 05:44] LABS: Absolute Lymphocyte Count 1.47 X10^3/uL (0.83-4.51); Absolute Neutrophil Count 8.2 X10^3/uL (2.0-7.7); Basophil# 0.06 X10^3/uL; Basophil% 0.5 % (0-1); Eosinophil# 0.16 X10^3/uL; Eosinophils% 1.5 % (0-5); Hematocrit 44.7 % (40-54); Hemoglobin 15.4 g/dL (13.0-16.5); Lymphocyte # 1.47 X10^3/ul (0.83-4.51); Lymphocyte % 13.4 % (19-41); Mean Corp Hgb Conc 34.5 g/dL (32-36); Mean Corpuscular Hgb 28.3 pg (27.0-32.0); Mean Platelet Vol. 10.5 fl (6.2-12.0); Monocyte# 1.02 X10^3/uL; Monocyte% 9.3 % (0-10); NRBC Flagged by Analyzer 0 % (0-5); Neutrophil % 74.6 % (47-70); Platelet Count 255 K/mm3 (150-450); RBC Distribution Width CV 13.8 % (11.6-14.6); RBC Distribution Width SD 40.7 fl (35.1-43.9); Red Blood Count 5.45 M/mm3 (4.6-6.2)
--- NOTE | 2021-08-19 06:05 | NURSING ---
This nurse attempted to straight cath patient per doctor's orders, unable to successfully straight cath patient. Another nurse is going to try.
[2021-08-19 06:27] LABS: Anion Gap 6 (5-15); BUN 29 mg/dL (7-18); Calcium,Total 9.1 mg/dL (8.5-10.1); Chloride 105 mmol/L (98-107); Creatinine, Serum 1.32 mg/dL (0.70-1.30); EST Glomerular Filtration Rate 56 mL/min (>60); Est Glom Filt Rate - Afr Amer 67 mL/min (>60); Estimated Creatinine Clearance 46.85 ml/min; Glucose 111 mg/dL (74-106); Potassium 3.1 mmol/L (3.5-5.1); Sodium Level 133 mmol/L (136-145)
--- NOTE | 2021-08-19 06:52 | NURSING ---
Other nurse successfully straight cathed patient for a total of 450ml of urine. Patient tolerated procedure fair.
[2021-08-19 08:24] VITALS: BP 120/57; PULSE 67; RESP 18; TEMP 36.6; O2SAT 96
[2021-08-19] MEDS: Glucerna Shake 120 ML LIQUID PO ×3 (08:30→17:14)
[2021-08-19] MEDS: hydroCHLOROthiazide 25 MG Tablet PO (08:30)
[2021-08-19] MEDS: Insulin Lispro 100 UNIT/ML INSULN.PEN 6 UNIT SC ×3 (08:30→17:13)
[2021-08-19] MEDS: Gabapentin 100 MG Capsule PO ×2 (08:30→21:46)
[2021-08-19] MEDS: Heparin Injection (Vial) 5,000 UNIT/ML VIAL 5000 UNIT SC ×2 (08:31→21:46)
[2021-08-19] MEDS: Lisinopril 20 MG Tablet PO (08:31)
[2021-08-19 08:41] LABS: Bedside Glucose 127 mg/dL (74-106)
--- NOTE | 2021-08-19 10:46 | CASEMGMT ---
TCU is full. JACK called patient's , Adriana. JACK let her know TCU is full. Her 2nd choice would be [facility] or [facility]. JACK called [facility] and left a voice mail for admissions. JACK also faxed referral. JACK called [facility] regarding referral and also faxed it. Await responses. Paula Bolanos REAL ESTATE ASSOCIATE HEAVY LIFT RIGGER
[2021-08-19 11:35] LABS: Bedside Glucose 125 mg/dL (74-106)
--- NOTE | 2021-08-19 12:11 | CASEMGMT ---
JACK received a call from Jane at [facility] and she asked if they could have someone come and do an onsite due to his confusion. JACK told her that would be fine. Paula Bolanos MSW ZIA
--- NOTE | 2021-08-19 13:17 | PCM.CONS.GEN ---
Assessment & Plan Assessment/Plan (1) Confusion: PLAN: Infectious workup neg so far, stable off of abx. No clear sign of active infection. Will follow as needed, thank you, d/w primary team HPI Consult Data Date of Consult: 08/19/21 HPI Narrative HPI Narrative: LANNY OLIVIER, is a 80 M who presented with several weeks of fatigue, weakness, confusion. Pt unable to provide history, denies any focal complaints. Had sibling recently . Was on abx for sinusitis as well recently. Admitted here, no fever, cxs neg. Full ROS performed and neg except as noted above. [facility] Medical History Colon cancer Confusion Hypertension Meningitis Mental status change PAD (peripheral artery disease) Personal history of colon cancer Smoker Tobacco abuse Type 2 diabetes mellitus Home Medications insulin aspart U-100 6 units SUBCUT TID 06/25/17 [History Last Taken 08/16/21] insulin glargine 30 unit SQ QHS 04/13/19 [History Last Taken 08/15/21] gabapentin 100 mg PO TID 10/16/20 [History Last Taken 08/16/21] lisinopril-hydrochlorothiazide 1 tab PO DAILY 10/16/20 [History Last Taken 08/15/21] amoxicillin-pot clavulanate 1 tab PO BID 08/16/21 [History Last Taken 08/16/21] metformin 1,000 mg PO BID 08/16/21 [History Last Taken 08/16/21] Allergy/AdvReac Type Severity Reaction Status Date / Time No Known Allergies Allergy Verified 08/16/21 10:22 Family History (Reviewed 08/16/21 @ 14:59 by Diamante Shane [employer], [employer]-C) Mother Cancer stomach Father Diabetes Surgical History History of colectomy (~05/2018) History of colonoscopy History of laparoscopic cholecystectomy hx of APLL Social History Smoking Status: Current every day smoker tobacco type: cigarettes Tobacco: How many years used: 45 Electronic Cigarette Use: not used second hand exposure: Yes quit status: has quit before alcohol intake: never substance use type: does not use Physical Exam Const alert and no apparent distress Constitutional Narrative: oriented x1, says he is at [facility] General Appearance: cooperative HEENT normocephalic and head/scalp atraumatic Eyes PERRL and EOMs intact bilaterally Neck supple and No nodes Resp normal air movement and clear to auscultation bilaterally Cardio regular rate and regular rhythm GI soft to palpation, non-tender and non-distended Extremity General Extremity: Negative for edema Skin no rashes or lesions noted Neuro CN's II-XII intact bilaterally Lab / Micro Data Result Diagrams: 08/19/21 05:08 08/19/21 05:08 Labs: Laboratory Results - last 24 hr 08/18/21 16:25: POC Glucose 174 H 08/18/21 21:26: POC Glucose 177 H 08/19/21 05:08: WBC 11.0, RBC 5.45, Hgb 15.4, Hct 44.7, MCV 82.0, MCH 28.3, MCHC 34.5, RDW Std Deviation 40.7, RDW Coeff of Yusuf 13.8, Plt Count 255, MPV 10.5, Immature Gran % (Auto) 0.700, Neut % (Auto) 74.6 H, Lymph % (Auto) 13.4 L, [place] % (Auto) 9.3, Eos % (Auto) 1.5, Baso % (Auto) 0.5, Absolute Neuts (auto) 8.2 H, Absolute Lymphs (auto) 1.47, Nucleated RBC % 0 08/19/21 05:08: Sodium 133 L, Potassium 3.1 L, Chloride 105, Carbon Dioxide 22.0, Anion Gap 6, BUN 29 H, Creatinine 1.32 H, Estim Creat Clear Calc 46.85, Est GFR (MDRD) Af Amer 67, Est GFR (MDRD) Non-Af 56 L, BUN/Creatinine Ratio 22.0 H, Glucose 111 H, Calcium 9.1 08/19/21 08:24: POC Glucose 127 H 08/19/21 11:31: POC Glucose 125 H
--- NOTE | 2021-08-19 13:22 | TREXTCAR_ITS ---
Documented by User: Diamante Shane NP, HOSPICE CARE SALES CONSULTANT-C 08/19/21 13:27 Diet 08/16/21 16:23 Diet: Regular - General Food consistency:: Mechanical (Minced/Moist) Liquid Consistency:: Regular/Thin Routine Orders/Code Status Enema Type: Fleetz Enema Frequency: Daily PRN Suppository Type: Dulcolax 10mg Suppository Frequency: Daily PRN Routine Lab Work: - (Weekly CBC, BMP) Wound(s) Right Radial Incision: Wound Type: Puncture Suggestions for Active Care Change Position every (hours): 2 Times a day to sit in chair: 3 Therapies Physical Therapy: Eval and Treat Occupational Therapy: Eval and Treat Problem/Diagnosis (1) Confusion: Status: Acute Allergies/Procedures Done in Hospital Allergies No Known Allergies Allergy (Verified 08/16/21 10:22) Procedures: None Type of Care/Length of Stay Estimated LOS: Convalescent Care Less Than 30 days Type of Care Needed: Skilled Rehab Potential: Fair Prognosis: Fair Additional Orders/Day of Discharge H&P will serve as current which was dated: 08/16/21 Day of Discharge: 08/19/21 Dietary and Speech Recommendations Dietitian Recommendations/Changes: Continue Regular - General diet. Continue Glucerna 120mL PO TID. If oral intakes and appetite improve, may recommend changing to therapeutic diet. Discharge Plan Admission Admit Date/Time: 08/16/21 14:30 Primary Reason for Your Visit: Encephalopathy Attending Provider: Rizwana Salinas Primary Care Provider: Delano Garcia Consulting Providers: Beto Valentino Discharge Orders/Prescriptions Prescriptions: New tamsulosin 0.4 mg Capsule 0.4 mg PO DAILY@1730 Qty: 0 RF: 0 Continued insulin aspart U-100 100 UNITS/ML insulin pen 6 units subcut TID RF: 0 insulin glargine 100 UNIT/ML insulin pen 30 unit SQ QHS RF: 0 gabapentin 100 mg capsule 100 mg PO TID RF: 0 lisinopril-hydrochlorothiazide 20-25 mg tablet 1 tab PO DAILY RF: 0 metformin 500 mg tablet extended release 24 hr 1,000 mg PO BID RF: 0 Discontinued amoxicillin-pot clavulanate 875-125 mg tablet 1 tab PO BID RF: 0 Referrals / Follow Up: Delano Garcia MD [Primary Care Provider] - In 1 Week Disposition Disposition (needs filled in before D/C Order can be placed): [facility] Documented by User: Dr. Rizwana Salinas, 08/20/21 10:00 Allergies/Procedures Done in Hospital Allergies No Known Allergies Allergy (Verified 08/16/21 10:22) Discharge Plan Admission Admit Date/Time: 08/16/21 14:30 Primary Reason for Your Visit: Encephalopathy Attending Provider: Rizwana Salinas Primary Care Provider: Delano Garcia Consulting Providers: Beto Valentino Discharge Orders/Prescriptions Prescriptions: New tamsulosin 0.4 mg Capsule 0.4 mg PO DAILY@1730 Qty: 0 RF: 0 Continued insulin aspart U-100 100 UNITS/ML insulin pen 6 units subcut TID RF: 0 insulin glargine 100 UNIT/ML insulin pen 30 unit SQ QHS RF: 0 gabapentin 100 mg capsule 100 mg PO TID RF: 0 lisinopril-hydrochlorothiazide 20-25 mg tablet 1 tab PO DAILY RF: 0 metformin 500 mg tablet extended release 24 hr 1,000 mg PO BID RF: 0 Discontinued amoxicillin-pot clavulanate 875-125 mg tablet 1 tab PO BID RF: 0 Referrals / Follow Up: Delano Garcia MD [Primary Care Provider] - In 1 Week Disposition Disposition (needs filled in before D/C Order can be placed): [facility] Facility
--- NOTE | 2021-08-19 13:27 | DS.PCM_ITS ---
Providers Date of Admission: 08/16/21 Date of Discharge: 08/19/21 Primary Care Physician: Dr. Delano Garcia MD Consultations 08/18/21 13:00 Consult: Infectious Disease Routine Consulting Provider: Beto Valentino Reason for Consult: encephalopathy, hx viral meningitis EMERGENT Consult: No MD Notified: Yes Date Notified: 08/19/21 Time Notified: 07:47 Method of Notification: Answering Service Reason For Visit: ENCEPHALOPATHY Diagnosis Discharge Diagnosis (1) Confusion: Status: Acute Code(s): R41.0 - Disorientation, unspecified Medications at Discharge Home Medications insulin aspart U-100 6 units SUBCUT TID 06/25/17 insulin glargine 30 unit SQ QHS 04/13/19 gabapentin 100 mg PO TID 10/16/20 lisinopril-hydrochlorothiazide 1 tab PO DAILY 10/16/20 metformin 1,000 mg PO BID 08/16/21 tamsulosin 0.4 mg PO DAILY@1730 #0 cap 08/19/21 Hospital Course Operations None Procedures None Summary of Care Provided Hospital Course: Patient is a 80-year-old male admitted 08/16/2021 due to weakness and confusion. 1. Acute encephalopathy-likely viral infectious etiology. UA and chest x-ray unremarkable. Patient's son reports recent cold. Influenza, resp panel and Covid negative. Mild leukocytosis resolved. Afebrile. MRI of brain negative. Blood cultures with no growth thus far. ID consulted without additional infectious work-up recommendations. SNF at discharge for rehab. 2. Type 2 diabetes mellitus with polyneuropathy-Continue home insulin regimen. 3. Hypertension-stable, continue lisinopril/HCTZ. 4. History of tobacco use-encouraged cessation. 5. History of colon cancer status post right colectomy 6. History of BPH status post TURP 7. Chronic kidney disease stage IIIa-appears at baseline, trend BMP. 8. History of viral meningitis (2018) Physical Exam Const alert, oriented x3 and no apparent distress Orientation / Consciousness: awake, oriented to person, oriented to place and oriented to time HEENT normocephalic and moist oral mucous membranes Eyes PERRL, EOMs intact bilaterally and conjunctivae normal Neck no lymphadenopathy Resp normal respiratory effort and clear to auscultation bilaterally Cardio regular rate, regular rhythm and no murmurs Peripheral Pulses: pulses 2+ throughout GI normal to inspection, nondistended, normoactive bowel sounds, non-tender and non-distended Extremity normal to inspection Skin no rashes or lesions noted Lesions: no lesions Rashes: no rashes Trauma: no lacerations or abrasions Neuro CN's II-XII intact bilaterally, no focal motor deficits, no sensory deficits noted and deep tendon reflexes 2+ bilaterally Psych mental status grossly normal and affect normal Patient seen and examined prior to discharge. Physical assessment as noted above. Patient is stable for discharge with follow up recommendations as noted above. This patient was seen by ELIZABETH Boudreaux under the supervision of Dr. Salinas. Weight / BMI Weight Weight: 195 lb 12.3 oz Body Mass Index (BMI) 28.0 ABG / Lab / Microbiology Data Result Diagrams: 08/19/21 05:08 08/19/21 05:08 Laboratory: Laboratory Results - last 24 hr 08/18/21 16:25: POC Glucose 174 H 08/18/21 21:26: POC Glucose 177 H 08/19/21 05:08: WBC 11.0, RBC 5.45, Hgb 15.4, Hct 44.7, MCV 82.0, MCH 28.3, MCHC 34.5, RDW Std Deviation 40.7, RDW Coeff of Yusuf 13.8, Plt Count 255, MPV 10.5, Immature Gran % (Auto) 0.700, Neut % (Auto) 74.6 H, Lymph % (Auto) 13.4 L, [place] % (Auto) 9.3, Eos % (Auto) 1.5, Baso % (Auto) 0.5, Absolute Neuts (auto) 8.2 H, Absolute Lymphs (auto) 1.47, Nucleated RBC % 0 08/19/21 05:08: Sodium 133 L, Potassium 3.1 L, Chloride 105, Carbon Dioxide 22.0, Anion Gap 6, BUN 29 H, Creatinine 1.32 H, Estim Creat Clear Calc 46.85, Est GFR (MDRD) Af Amer 67, Est GFR (MDRD) Non-Af 56 L, BUN/Creatinine Ratio 22.0 H, Glucose 111 H, Calcium 9.1 08/19/21 08:24: POC Glucose 127 H 08/19/21 11:31: POC Glucose 125 H Microbiology: Microbiology 08/17/21 15:30 Mucosa - Nasopharyngeal Respiratory Panel (PCR) - Final 08/16/21 12:30 Mucosa - Nose Influenza Types A,B Direct FA (LAURA) - Final 08/16/21 11:23 Nasal Secretion SARS-CoV-2 Antigen (Rapid) - Final Meaningful Use Info Meaningful Use Diagnoses (Choose all that apply): None applicable Discharge Plan Admission Admit Date/Time: 08/16/21 14:30 Primary Reason for Your Visit: Encephalopathy Attending Provider: Rizwana Salinas Primary Care Provider: Delano Garcia Consulting Providers: Beto Valentino Discharge Orders/Prescriptions Prescriptions: New tamsulosin 0.4 mg Capsule 0.4 mg PO DAILY@1730 Qty: 0 RF: 0 Continued insulin aspart U-100 100 UNITS/ML insulin pen 6 units subcut TID RF: 0 insulin glargine 100 UNIT/ML insulin pen 30 unit SQ QHS RF: 0 gabapentin 100 mg capsule 100 mg PO TID RF: 0 lisinopril-hydrochlorothiazide 20-25 mg tablet 1 tab PO DAILY RF: 0 metformin 500 mg tablet extended release 24 hr 1,000 mg PO BID RF: 0 Discontinued amoxicillin-pot clavulanate 875-125 mg tablet 1 tab PO BID RF: 0 Referrals / Follow Up: Delano Garcia MD [Primary Care Provider] - In 1 Week Disposition Disposition (needs filled in before D/C Order can be placed[facility]
--- NOTE | 2021-08-19 13:37 | CASEMGMT ---
JACK called [facility] as JACK has not heard back from them regarding referral. Admissions was on the phone. Commercial Floor Covering Installer took JACK's name and number and will have someone call JACK. Paula LIZARRAGA
--- NOTE | 2021-08-19 14:03 | CASEMGMT ---
JACK received a call from Cristobal with [facility]. Cristobal asked a few questions. He asked when patient is ready and JACK told him today. Cristobal was going to talk with their snow removing supervisor to see if what they have would be appropriate for patient. Cristobal will call JACK back. Paula LIZARRAGA
--- NOTE | 2021-08-19 14:33 | CASEMGMT ---
Page from [facility] came and saw patient. She felt they would be able to take patient, but they do not have any beds today. She is not sure they have any beds tomorrow either. SW went to patient's room and spoke with patient's and son. SW let them know about [facility] and [facility]. SW asked if they have another choice in the event [facility] cannot accept him. Patient's said she did not. Patient's son said it has to be one of those two facilities in [place] as he has to drive patient's to see patient. SW told them will let them know when SW hears something. Await return call from [facility]. Paula Bolanos AIRPORT OPERATIONS SUPERVISOR ZIA
--- NOTE | 2021-08-19 14:50 | CASEMGMT ---
JACK received a call from Cristobal at [facility] and they will not have any availability for patient. He does not know when they will have any openings. JACK called [facility] and spoke with Dixie. Dixie said [facility] said they can clinically manage patient. Dixie said they will have a bed for patient tomorrow. JACK notified patient's and son. Plan: d/c to [facility] Thursday when bed is available. Paula Bolanos GARBAGE PERSON ZIA
--- NOTE | 2021-08-19 15:13 | PCM.PN.HOSP ---
Documented by User: Diamante Shane PLATE DRYING MACHINE TENDER, PLATE DRYING MACHINE TENDER-C 08/19/21 15:14 Subjective Subjective Patient seen and examined. Continues to report generalized weakness. Denies fever, chills. Mental status improved. Objective Data Objective Data Vital Signs: Vital Signs Temp Pulse Resp BP Pulse Ox 97.8 F 67 18 120/57 L 96 08/19/21 08:24 08/19/21 08:24 08/19/21 08:24 08/19/21 08:24 08/19/21 08:24 Oxygen Delivery Method Room Air Weight: 195 lb 12.3 oz Body Mass Index (BMI) 28.0 Intake & Output: Intake and Output for Last 24 Hours 08/17/21 08/18/21 08/19/21 23:59 23:59 23:59 Intake Total 1135 / 1135 560 / 560 0 / 0 Output Total 950 / 950 975 / 975 450 / 450 Balance 185 / 185 -415 / -415 -450 / -450 Lab / Micro Data Result Diagrams: 08/19/21 05:08 08/19/21 05:08 Labs: Laboratory Results - last 24 hr 08/18/21 16:25: POC Glucose 174 H 08/18/21 21:26: POC Glucose 177 H 08/19/21 05:08: WBC 11.0, RBC 5.45, Hgb 15.4, Hct 44.7, MCV 82.0, MCH 28.3, MCHC 34.5, RDW Std Deviation 40.7, RDW Coeff of Yusuf 13.8, Plt Count 255, MPV 10.5, Immature Gran % (Auto) 0.700, Neut % (Auto) 74.6 H, Lymph % (Auto) 13.4 L, [place] % (Auto) 9.3, Eos % (Auto) 1.5, Baso % (Auto) 0.5, Absolute Neuts (auto) 8.2 H, Absolute Lymphs (auto) 1.47, Nucleated RBC % 0 08/19/21 05:08: Sodium 133 L, Potassium 3.1 L, Chloride 105, Carbon Dioxide 22.0, Anion Gap 6, BUN 29 H, Creatinine 1.32 H, Estim Creat Clear Calc 46.85, Est GFR (MDRD) Af Amer 67, Est GFR (MDRD) Non-Af 56 L, BUN/Creatinine Ratio 22.0 H, Glucose 111 H, Calcium 9.1 08/19/21 08:24: POC Glucose 127 H 08/19/21 11:31: POC Glucose 125 H Micro: Microbiology 08/17/21 15:30 Mucosa - Nasopharyngeal Respiratory Panel (PCR) - Final 08/16/21 12:30 Mucosa - Nose Influenza Types A,B Direct FA (LAURA) - Final 08/16/21 11:23 Nasal Secretion SARS-CoV-2 Antigen (Rapid) - Final Physical Exam Const alert, oriented x3 and no apparent distress Orientation / Consciousness: awake, oriented to person, oriented to place and oriented to time HEENT normocephalic Mouth: dry mucous membranes Eyes PERRL, EOMs intact bilaterally and conjunctivae normal Neck no lymphadenopathy Resp normal respiratory effort and clear to auscultation bilaterally Cardio regular rate, regular rhythm and no murmurs Peripheral Pulses: pulses 2+ throughout GI normal to inspection, nondistended, normoactive bowel sounds, non-tender and non-distended Extremity normal to inspection Skin no rashes or lesions noted Lesions: no lesions Rashes: no rashes Trauma: no lacerations or abrasions Neuro CN's II-XII intact bilaterally, no focal motor deficits, no sensory deficits noted and deep tendon reflexes 2+ bilaterally Psych mental status grossly normal and affect normal Assessment & Plan Assessment/Plan (1) Mental status change: PLAN: 1. Acute encephalopathy-likely viral infectious etiology. UA and chest x-ray unremarkable. Patient's son reports recent cold. Influenza, resp panel and Covid negative. Mild leukocytosis resolved. Afebrile. MRI of brain negative. Blood cultures with no growth thus far. ID consulted without additional infectious work-up recommendations. SNF at discharge for rehab. 2. Type 2 diabetes mellitus with polyneuropathy-Continue home insulin regimen. 3. Hypertension-stable, continue lisinopril/HCTZ. 4. History of tobacco use-encouraged cessation. 5. History of colon cancer status post right colectomy 6. History of BPH status post TURP 7. Chronic kidney disease stage IIIa-appears at baseline, trend BMP. 8. History of viral meningitis (2018) DVT prophylaxis- heparin sc This patient was seen by ELIZABETH Boudreaux under the supervision of Dr. Salinas. Documented by User: Dr. Rizwana Salinas DO 08/19/21 17:07 Subjective Subjective Patient was seen in conjunction with Diamante Shane NP. The following is representation my independent history and physical examination. Please see below for none the above. No significant issues overnight. Patient remains intermittently confused. He tells me today he is at [facility] and when I correct him that he is at [place] he denies the fact that he is here. 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 Objective Data Lab / Micro Data Result Diagrams: 08/19/21 05:08 08/19/21 05:08 Physical Exam Const alert, no apparent distress, average body habitus, healthy appearing and well nourished Constitutional Narrative: Older white male sitting up in bed, watching television, appears comfortable oriented to self, year, and president of the [place] however is confused about current location and month Exam Limitations: altered mental status Nutritional Appearance: overweight HEENT head/scalp atraumatic and moist oral mucous membranes HEENT Narrative: Dentition is poor, no thrush present, Mallampati is 2 Head and Scalp: normocephalic Resp normal respiratory effort, no retractions, no use of accessory muscles and clear to auscultation bilaterally Auscultation: Negative for crackles, rales, rhonchi or wheezes Cardio regular rate, regular rhythm, S1 normal heart sound, S2 normal heart sound, no murmurs, no rub, no gallops, no clicks and no JVD GI normal to inspection, nondistended, normoactive bowel sounds, soft to palpation, non-tender and non-distended Extremity no clubbing, cyanosis or edema Peripheral Pulses: Yes pulses 2+ throughout Neuro CN's II-XII intact bilaterally, moves all extremities and no focal motor deficits Neuro Narrative: Generalized weakness noted with no focal deficits Sensorium / Orientation: awake and alert Speech: speech normal Psych affect normal Assessment & Plan Assessment/Plan (1) Acute viral syndrome: (2) Encephalopathy acute: (3) Acute hyponatremia: (4) Hypokalemia: (5) Low TSH level: (6) Debility: PLAN: Assessment: Acute metabolic encephalopathy Acute hyponatremia Acute hypokalemia Low TSH level Debility Hypertension DM-2 Diabetic neuropathy BPH CKD stage IIIb History of viral meningitis Ongoing tobacco abuse Plan: -Patient with ongoing and confusion that seems to be intermittent in nature -ID consulted for input given history of viral meningitis -No further work-up recommended at this time -RI was negative for any lesions and shows only chronic involutional changes -Blood pressures are soft but in normal range -Discontinue hydrochlorothiazide given patient is having lower blood pressures and hyponatremia -Tinea to monitor -Check free T4 in a.m.--> suspect euthyroid sick syndrome -Continue PT/OT -Patient has qualified for placement at discharge and pre-CERT is pending -Recommend smoking cessation Charges/Coding Visit Charges Inpatient E&M: 06343 Subs Hosp L2
[2021-08-19 15:15] VITALS: BP 92/58; PULSE 61; RESP 18; TEMP 36.5; O2SAT 93
[2021-08-19] MEDS: Insulin Lispro 100 UNIT/ML INSULN.PEN SC ×2 (17:14→21:47)
[2021-08-19] MEDS: Tamsulosin HCl 0.4 MG Capsule PO (17:15)
[2021-08-19 17:41] LABS: Bedside Glucose 159 mg/dL (74-106)
[2021-08-19] MEDS: Insulin Glargine-YFGN 100 UNIT/ML Pen 30 UNIT SC (21:46)
[2021-08-19 22:00] LABS: Bedside Glucose 164 mg/dL (74-106)
[2021-08-19 22:40] VITALS: BP 110/62; PULSE 60; RESP 17; TEMP 36.9; O2SAT 94
[2021-08-20 04:45] VITALS: BP 118/62; PULSE 60; RESP 18; TEMP 36.8; O2SAT 98
--- NOTE | 2021-08-20 05:57 | NURSING ---
bladder scanned patient >560 ml on scan. Straight cathed patient 625ml output.
[2021-08-20] MEDS: Insulin Lispro 100 UNIT/ML INSULN.PEN SC ×2 (06:54→11:40)
[2021-08-20 07:01] LABS: Bedside Glucose 166 mg/dL (74-106)
[2021-08-20 07:58] LABS: T4 Free Direct 1.39 ng/dL (0.76-1.46)
--- NOTE | 2021-08-20 08:51 | CASEMGMT ---
JACK received a call from Jane at [place]. She requested transport for patient be set up for 3p today so they have a chance to clean the room. JACK will set up transport for 3p. JACK will notify family, RN, and private secretary. Paula Bolanos FIELD TECHNICIAN ZIA
[2021-08-20] MEDS: Insulin Lispro 100 UNIT/ML INSULN.PEN 6 UNIT SC (09:02)
[2021-08-20 09:27] VITALS: BP 106/41; PULSE 73; RESP 18; TEMP 36.3; O2SAT 95
[2021-08-20] MEDS: Gabapentin 100 MG Capsule PO (09:40)
[2021-08-20] MEDS: Heparin Injection (Vial) 5,000 UNIT/ML VIAL 5000 UNIT SC (09:40)
--- NOTE | 2021-08-20 09:41 | PCM.DC.SUM ---
Documented by User: Diamante Shane NP, RETAIL FIELD MERCHANDISER-C 08/20/21 09:43 Providers Date of Admission: 08/16/21 Date of Discharge: 08/20/21 Primary Care Physician: Dr. Delano Garcia MD Consultations 08/18/21 13:00 Consult: Infectious Disease Routine Consulting Provider: Beto Valentino Reason for Consult: encephalopathy, hx viral meningitis EMERGENT Consult: No MD Notified: Yes Date Notified: 08/19/21 Time Notified: 07:47 Method of Notification: Answering Service Reason For Visit: ENCEPHALOPATHY Diagnosis Discharge Diagnosis (1) Acute viral syndrome: Status: Acute Code(s): B34.9 - Viral infection, unspecified (2) Encephalopathy acute: Status: Acute Code(s): G93.40 - Encephalopathy, unspecified (3) Acute hyponatremia: Status: Acute Code(s): E87.1 - Hypo-osmolality and hyponatremia (4) Hypokalemia: Status: Acute Code(s): E87.6 - Hypokalemia (5) Low TSH level: Status: Acute Code(s): R79.89 - Other specified abnormal findings of blood chemistry (6) Debility: Status: Acute Code(s): R53.81 - Other malaise Medications at Discharge Home Medications insulin aspart U-100 6 units SUBCUT TID 06/25/17 insulin glargine 30 unit SQ QHS 04/13/19 gabapentin 100 mg PO TID 10/16/20 metformin 1,000 mg PO BID 08/16/21 tamsulosin 0.4 mg PO DAILY@1730 #0 cap 08/19/21 lisinopril 20 mg PO DAILY #30 tab 08/20/21 Hospital Course Operations None Procedures None Summary of Care Provided Hospital Course: Patient is a 80-year-old male admitted 08/16/2021 due to weakness and confusion. 1. Acute encephalopathy-likely viral infectious etiology. UA and chest x-ray unremarkable. Patient's son reports recent cold. Influenza, resp panel and Covid negative. Mild leukocytosis resolved. Afebrile. MRI of brain negative. Blood cultures with no growth thus far. ID consulted without additional infectious work-up recommendations. SNF at discharge for rehab. 2. Type 2 diabetes mellitus with polyneuropathy-Continue home insulin regimen. 3. Hypertension-stable, continue lisinopril/HCTZ. 4. History of tobacco use-encouraged cessation. 5. History of colon cancer status post right colectomy 6. History of BPH status post TURP 7. Chronic kidney disease stage IIIa-appears at baseline, trend BMP. 8. History of viral meningitis (2018) Physical Exam Const alert, oriented x3 and no apparent distress Orientation / Consciousness: awake, oriented to person, oriented to place and oriented to time HEENT normocephalic and moist oral mucous membranes Eyes PERRL, EOMs intact bilaterally and conjunctivae normal Neck no lymphadenopathy Resp normal respiratory effort and clear to auscultation bilaterally Cardio regular rate, regular rhythm and no murmurs Peripheral Pulses: pulses 2+ throughout GI normal to inspection, nondistended, normoactive bowel sounds, non-tender and non-distended Extremity normal to inspection Skin no rashes or lesions noted Lesions: no lesions Rashes: no rashes Trauma: no lacerations or abrasions Neuro CN's II-XII intact bilaterally, no focal motor deficits, no sensory deficits noted and deep tendon reflexes 2+ bilaterally Psych mental status grossly normal and affect normal Patient seen and examined prior to discharge. Physical assessment as noted above. Patient is stable for discharge with follow up recommendations as noted above. This patient was seen by ELIZABETH Boudreaux under the supervision of Dr. Salinas. Weight / BMI Weight Weight: 195 lb 12.3 oz Body Mass Index (BMI) 28.0 ABG / Lab / Microbiology Data Result Diagrams: 08/19/21 05:08 08/19/21 05:08 Laboratory: Laboratory Results - last 24 hr 08/19/21 05:08: Free T4 1.39 08/19/21 11:31: POC Glucose 125 H 08/19/21 17:11: POC Glucose 159 H 08/19/21 21:44: POC Glucose 164 H 08/20/21 06:52: POC Glucose 166 H Microbiology: Microbiology 08/16/21 16:00 Blood Culture (Wb) - Anticubital Left Blood Culture - Preliminary No growth in 48 hours. 08/16/21 15:50 Blood Culture (Wb) - Anticubital Right Blood Culture - Preliminary No growth in 48 hours. 08/17/21 15:30 Mucosa - Nasopharyngeal Respiratory Panel (PCR) - Final 08/16/21 12:30 Mucosa - Nose Influenza Types A,B Direct FA (LAURA) - Final 08/16/21 11:23 Nasal Secretion SARS-CoV-2 Antigen (Rapid) - Final Meaningful Use Info Meaningful Use Diagnoses (Choose all that apply): None applicable Discharge Plan Admission Admit Date/Time: 08/16/21 14:30 Primary Reason for Your Visit: Encephalopathy Attending Provider: Rizwana Salinas Primary Care Provider: Delano Garcia Consulting Providers: Beto Valentino Discharge Orders/Prescriptions Prescriptions: New tamsulosin 0.4 mg Capsule 0.4 mg PO DAILY@1730 Qty: 0 RF: 0 lisinopril 20 mg tablet 20 mg PO DAILY Qty: 30 RF: 0 Continued insulin aspart U-100 100 UNITS/ML insulin pen 6 units subcut TID RF: 0 insulin glargine 100 UNIT/ML insulin pen 30 unit SQ QHS RF: 0 gabapentin 100 mg capsule 100 mg PO TID RF: 0 metformin 500 mg tablet extended release 24 hr 1,000 mg PO BID RF: 0 Discontinued lisinopril-hydrochlorothiazide 20-25 mg tablet 1 tab PO DAILY RF: 0 amoxicillin-pot clavulanate 875-125 mg tablet 1 tab PO BID RF: 0 Referrals / Follow Up: Delano Garcia MD [Primary Care Provider] - In 1 Week Disposition Disposition (needs filled in before D/C Order can be placed): Half-Way Facility Documented by User: Dr. Rizwana Salinas DO 08/20/21 12:23 Providers Date of Admission: 08/16/21 Date of Discharge: 08/20/21 Reason For Visit: ENCEPHALOPATHY Medications at Discharge Home Medications insulin aspart U-100 6 units SUBCUT TID 06/25/17 insulin glargine 30 unit SQ QHS 04/13/19 gabapentin 100 mg PO TID 10/16/20 metformin 1,000 mg PO BID 08/16/21 tamsulosin 0.4 mg PO DAILY@1730 #0 cap 08/19/21 lisinopril 20 mg PO DAILY #30 tab 08/20/21 Hospital Course Operations None Procedures - (CT brain, CT abdomen pelvis, MRI brain) Summary of Care Provided Minutes Spent on Discharge: 40 Hospital Course: Mr. Martel is a 80-year-old male who presented to the emergency department [facility] on 08/16/2021 secondary to confusion. Patient was confused during his assessment and was not able to provide any information. When he was asked what month it was he stated he did not know and the year was 888. He did indicate that he recently had a cold at home and had not been feeling well. He denied any other specific symptoms or complaints. The admitting physician spoke to the son who stated that he had not been feeling well for the past few weeks and was seen at an urgent care and placed on Augmentin. The son reported that he had been significantly weak and falling at home prior to admission. He has no confusion at baseline. He was admitted to the telemetry floor for acute encephalopathy that was felt to be infectious versus metabolic. His UA and chest x-ray were unremarkable. He had a mild leukocytosis on presentation. A CT of his head was performed and showed only chronic involutional changes of the brain. With his fall, a lumbar spine x-ray was performed and showed no acute fracture or subluxation but did show moderate diffuse degenerative disc disease. He complained intermittently of some abdominal pain and a CT of his abdomen and pelvis was performed and showed no acute abnormalities. With his persistent confusion an MRI of the brain was performed and again showed involutional changes of the brain with no acute infarct or intracranial hemorrhage. His TSH was found to be low and a free T4 was performed and was found to be normal indicating euthyroid sick syndrome. His white count normalized by the a.m. of 08/19/2021. It appears that he has some CKD with a baseline creatinine between 1.2 and 1.4. He was also found to be mildly hyponatremic and hypokalemic. His potassium was replaced and he was discontinued off his hydrochlorothiazide. His blood pressures were normal but on the low side of normal during his hospitalization and therefore we discontinued his hydrochlorothiazide upon discharge since he seemed to be having more side effects related to this than benefits. I do recommend he be followed up in the outpatient setting for continued monitoring of his blood pressure and needs for any further antihypertensives although at this time it appears that he will not need any. With his debility it was felt that he was most appropriate to be discharged for rehab prior to discharge home. At the time of discharge she was oriented to self, location, year, and vice president of product marketing. He was only confused on month. He was seen by physical therapy and they confirmed his needs for further rehab. He was discharged to [facility] in stable condition on 08/20/2021. Discharge diagnoses: Acute metabolic encephalopathy-improving -Suspect related to underlying viral illness Acute hyponatremia-resolved Acute hypokalemia-resolved Low TSH level-euthyroid sick syndrome Debility Hypertension DM-2 Diabetic neuropathy BPH CKD stage IIIb History of viral meningitis Ongoing tobacco abuse Physical Exam Const alert, no apparent distress, average body habitus, healthy appearing and well nourished Constitutional Narrative: Older white male sitting up in bed, watching television, appears comfortable oriented to self, location, year, and vice president of product [employer] however remains confused on what month it is telling me in January General Appearance: cooperative, comfortable, well kempt and well developed Orientation / Consciousness: awake, oriented to person, oriented to place and oriented to time Exam Limitations: altered mental status Nutritional Appearance: overweight HEENT normocephalic and head/scalp atraumatic HEENT Narrative: Hard of hearing, dentition is poor, no thrush, tongue is dry but mucous membranes are otherwise normal Eyes PERRL, EOMs intact bilaterally and conjunctivae normal Neck no lymphadenopathy, supple and no JVD Neck Narrative: No thyroid enlargement, trachea is midline Resp normal respiratory effort, no retractions, no use of accessory muscles and clear to auscultation bilaterally Auscultation: Negative for crackles, rales, rhonchi or wheezes Cardio regular rate, regular rhythm, S1 normal heart sound, S2 normal heart sound, no murmurs, no rub, no gallops, no clicks and no JVD Peripheral Pulses: pulses 2+ throughout GI normal to inspection, nondistended, normoactive bowel sounds, soft to palpation, non-tender and non-distended Extremity no clubbing, cyanosis or edema Extremity Narrative: 2+ pedal pulses Skin no rashes or lesions noted, no wounds, skin turgor normal and no jaundice Lesions: no lesions Rashes: no rashes Trauma: no lacerations or abrasions Neuro CN's II-XII intact bilaterally, moves all extremities, no focal motor deficits, no sensory deficits noted and deep tendon reflexes 2+ bilaterally Neuro Narrative: Generalized weakness noted with no focal deficits Sensorium / Orientation: awake and alert Speech: speech normal Psych mental status grossly normal and affect normal ABG / Lab / Microbiology Data Result Diagrams: 08/19/21 05:08 08/19/21 05:08 Discharge Plan Admission Admit Date/Time: 08/16/21 14:30 Primary Reason for Your Visit: Encephalopathy Attending Provider: Rizwana Salinas Primary Care Provider: Delano Garcia Consulting Providers: Beto Valentino Discharge Orders/Prescriptions Prescriptions: New tamsulosin 0.4 mg Capsule 0.4 mg PO DAILY@1730 Qty: 0 RF: 0 lisinopril 20 mg tablet 20 mg PO DAILY Qty: 30 RF: 0 Continued insulin aspart U-100 100 UNITS/ML insulin pen 6 units subcut TID RF: 0 insulin glargine 100 UNIT/ML insulin pen 30 unit SQ QHS RF: 0 gabapentin 100 mg capsule 100 mg PO TID RF: 0 metformin 500 mg tablet extended release 24 hr 1,000 mg PO BID RF: 0 Discontinued lisinopril-hydrochlorothiazide 20-25 mg tablet 1 tab PO DAILY RF: 0 amoxicillin-pot clavulanate 875-125 mg tablet 1 tab PO BID RF: 0 Referrals / Follow Up: Delano Garcia MD [Primary Care Provider] - In 1 Week Disposition Disposition (needs filled in before D/C Order can be placed): Half-Way Facility Charges/Coding Visit Charges Inpatient E&M: 07153 SNF Disch >30 Min
[2021-08-20] MEDS: Lisinopril 10 MG Tablet PO (09:46)
--- NOTE | 2021-08-20 10:42 | CASEMGMT ---
JACK arranged for patient to get picked up at 1500 via cot. JACK notified RN, payroll secretary, and clinic charge nurse. JACK called patient's and let her know this information as well. JACK faxed orders, negative COVID, and picker packer time to [place]. Plan: d/c to [place] under skilled level of care on a convalescent stay. [facility] will transport via cot. Paula LIZARRAGA
[2021-08-20 11:26] LABS: Bedside Glucose 256 mg/dL (74-106)
[2021-08-20] MEDS: Glucerna Shake 120 ML LIQUID PO (11:42)
[2021-08-20 12:58] VITALS: BP 120/50; PULSE 60; RESP 16; TEMP 36.2; O2SAT 94
[2021-08-20 14:01] LABS: Pathologist Review Reviewed
--- NOTE | 2021-08-20 14:19 | NURSING ---
Report called to TYRESE Ly at [facility] at 1413.
== END 2021-08-20 15:44 | disposition skilled nursing facility (03) | DRG 71 ==
LOC: ED 15:11 → PCU 16:23
PROVIDERS: Nurse Practitioner; Nurse Practitioner Family; Admitting Provider Internal Medicine; Emergency Provider Emergency Medicine; PCP Family Medicine; Visit Provider Internal Medicine
DX: G93.41 Metabolic encephalopathy (principal); E87.1 Hypo-osmolality and hyponatremia; E11.22 Type 2 diabetes mellitus with diabetic chronic kidney disease; E11.42 Type 2 diabetes mellitus with diabetic polyneuropathy; G30.9 Alzheimer's disease, unspecified; F02.80 Dementia in other diseases classified elsewhere, unspecified severity, without behavioral disturbance, psychotic disturbance, mood disturbance, and anxiety; Z79.4 Long term (current) use of insulin; E11.51 Type 2 diabetes mellitus with diabetic peripheral angiopathy without gangrene; N18.32 Chronic kidney disease, stage 3b; I12.9 Hypertensive chronic kidney disease with stage 1 through stage 4 chronic kidney disease, or unspecified chronic kidney disease; E78.5 Hyperlipidemia, unspecified; E87.6 Hypokalemia; N40.0 Benign prostatic hyperplasia without lower urinary tract symptoms; M51.36 Other intervertebral disc degeneration, lumbar region; F17.210 Nicotine dependence, cigarettes, uncomplicated; B34.9 Viral infection, unspecified; Z20.822 Contact with and (suspected) exposure to COVID-19; E07.81 Sick-euthyroid syndrome; Z79.899 Other long term (current) drug therapy; Z85.038 Personal history of other malignant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 large intestine; Z86.61 Personal history of infections of the central nervous system
CPT/HCPCS: 36415; 70450; 70551; 71045; 72100; 74177; 80048; 80076; 81001; 82140; 82962; 83605; 83735; 83880; 84439; 84443; 84484; 85025; 87040; 87426; 87428; 87633; 87804; 87811; 93005; 97110; 97161; 97166; 97530; 97535; 97802; 99285; J7030; Q9967; A4216

== ENCOUNTER → 2021-10-22 | Outpatient (REF) | payer SELFPAY ==
[2021-10-22 08:55] LABS: Absolute Lymphocyte Count 1.89 X10^3/uL (0.83-4.51); Absolute Neutrophil Count 7.1 X10^3/uL (2.0-7.7); Basophil# 0.07 X10^3/uL; Basophil% 0.6 % (0-1); Eosinophil# 0.41 X10^3/uL; Eosinophils% 3.8 % (0-5); Hematocrit 35.1 % (40-54); Hemoglobin 10.7 g/dL (13.0-16.5); Lymphocyte # 1.89 X10^3/ul (0.83-4.51); Lymphocyte % 17.5 % (19-41); Mean Corp Hgb Conc 30.5 g/dL (32-36); Mean Corpuscular Hgb 27.6 pg (27.0-32.0); Mean Corpuscular Volume 90.7 fL (80-94); Mean Platelet Vol. 10.3 fl (6.2-12.0); Monocyte# 0.88 X10^3/uL; Monocyte% 8.2 % (0-10); NRBC Flagged by Analyzer 0 % (0-5); Neutrophil # 7.12 X10^3/uL (2.7-7.7); Neutrophil % 66.1 % (47-70); Platelet Count 410 K/mm3 (150-450); RBC Distribution Width CV 15.1 % (11.6-14.6); RBC Distribution Width SD 49.9 fl (35.1-43.9); Red Blood Count 3.87 M/mm3 (4.6-6.2); White Blood Count 10.8 K/mm3 (4.4-11.0)
[2021-10-22 09:26] LABS: BNP,B-Type NATRIURETIC PEPTIDE 58.2 pg/mL (0-100)
[2021-10-22 09:40] LABS: ALB/GLOB Ratio 0.6 RATIO (0.9-2.4); AST(SGOT) 22 U/L (15-37); Alanine Aminotransfer ALT/SGPT 59 U/L (16-61); Albumin, Serum 2.4 g/dL (3.2-5.0); Alkaline Phosphatase 109 U/L (45-117); Anion Gap 8 (5-15); BUN 14 mg/dL (7-18); BUN/Creat Ratio 11.7 RATIO (10-20); Calcium,Total 8.8 mg/dL (8.5-10.1); Chloride 109 mmol/L (98-107); Cholesterol 150 mg/dL (200); EST Glomerular Filtration Rate 62 mL/min (>60); Est Glom Filt Rate - Afr Amer 75 mL/min (>60); Globulin 3.9 g/dL (2.2-4.2); Glucose 88 mg/dL (74-106); High Density Lipoprotein 24 mg/dL; Potassium 3.8 mmol/L (3.5-5.1); Protein, Total 6.3 g/dL (6.4-8.2); Sodium Level 139 mmol/L (136-145); Thyroid Stim Hormone (TSH) 0.27 uIU/mL (0.358-3.74); Triglycerides 150 mg/dL; Very Low Density Lipoprotein 30 mg/dL (5-40)
== END | disposition home or self-care (01) ==
LOC: OLS.SW1020 04:00
PROVIDERS: PCP Family Medicine; Referring Provider Internal Medicine; Visit Provider Internal Medicine
DX: R53.83 Other fatigue (principal); F03.90 Unspecified dementia, unspecified severity, without behavioral disturbance, psychotic disturbance, mood disturbance, and anxiety; E11.9 Type 2 diabetes mellitus without complications; E78.5 Hyperlipidemia, unspecified; E03.9 Hypothyroidism, unspecified; N40.0 Benign prostatic hyperplasia without lower urinary tract symptoms; N39.0 Urinary tract infection, site not specified
CPT/HCPCS: 36415; 80053; 80061; 83880; 84443; 85025

== ENCOUNTER 2024-06-07 13:36 | Emergency (ER) | payer MEDICARE, OTHER, SELFPAY ==
[2024-06-07 13:37] VITALS: BP 183/63; PULSE 56; RESP 15; TEMP 37.2; O2SAT 92
--- NOTE | 2024-06-07 14:38 | CT_ITS ---
EXAM: CT HEAD WITHOUT INTRAVENOUS CONTRAST CLINICAL INDICATION: Confusion TECHNIQUE: Multiple axial images were obtained of the head without intravenous contrast. This CT exam was performed using one or more of the following dose reduction techniques: automated exposure control, adjustment of the mA and/or kV according to patient size, and/or use of iterative reconstruction technique. COMPARISON: 08/16/2021 FINDINGS: BRAIN AND EXTRA-AXIAL SPACES: There is enlargement of ventricular system and cortical sulci. There is hypoattenuation in the periventricular white matter. No intra- or extra-axial hemorrhage. No evidence of acute infarct. No intracranial mass or mass effect. There is preservation of the gillis/white matter interface. Posterior fossa structures are unremarkable. Basal cisterns are patent. BONES/JOINTS: Unremarkable. No discrete lytic or blastic abnormalities. SINUSES: Unremarkable as visualized. Clear. MASTOID AIR CELLS: Unremarkable. Clear. ORBITS: Visualized globes, extraocular muscles, optic nerves and retrobulbar fat appear unremarkable. CT/Brain/Head without Contrast IMPRESSION: 1. No acute intracranial abnormality. There has been no significant change from the reference exam. 2. Senescent change with small vessel ischemia. Electronically Signed: Thad Mckoy MD at 18:29 EST ,
--- NOTE | 2024-06-07 14:38 | CT_ITS ---
EXAM: CT ABDOMEN AND PELVIS WITH INTRAVENOUS CONTRAST CLINICAL INDICATION: Diarrhea, history of colon cancer TECHNIQUE: Helically acquired images were obtained of the abdomen and pelvis with intravenous contrast. This CT exam was performed using one or more of the following dose reduction techniques: automated exposure control, adjustment of the mA and/or kV according to patient size, and/or use of iterative reconstruction technique. CONTRAST: IV 100mL Isovue-370 COMPARISON: 04/26/2018 FINDINGS: LOWER THORAX: Unremarkable. Lung bases are clear. No cardiomegaly. No significant pericardial effusion. ABDOMEN: LIVER: Unremarkable. Homogeneous. No focal mass. GALLBLADDER AND BILE DUCTS: There are surgical clips from a cholecystectomy. No intra- or extrahepatic biliary ductal dilation. PANCREAS: Unremarkable. No focal cystic or solid mass. SPLEEN: Unremarkable. Normal size without focal cystic or solid mass. ADRENALS: Unremarkable. No nodules. KIDNEYS AND URETERS: There are multiple low-density masses in both kidneys compatible with cysts. This is stable from the reference exam. No follow-up imaging is necessary. No hydronephrosis. STOMACH AND BOWEL: There are postsurgical changes from a right hemicolectomy. No stomach or bowel distention. PELVIS: APPENDIX: See above. BLADDER: Unremarkable. REPRODUCTIVE: Unremarkable as visualized. No mass. ABDOMEN and PELVIS: INTRAPERITONEAL SPACE: Unremarkable. No ascites or other fluid collection. No free air. BONES/JOINTS: Unremarkable. No suspicious lytic or blastic abnormality. SOFT TISSUES: Unremarkable. No discrete abdominal or pelvic wall hernia. VASCULATURE: Unremarkable. Abdominal aorta is non-dilated. LYMPH NODES: Unremarkable. No enlarged lymph nodes. CT/Abdomen/Pelvis W IV Cont ONLY IMPRESSION: No acute findings in the abdomen or pelvis. Electronically Signed: Thad Mckoy MD at 18:25 EST ,
--- NOTE | 2024-06-07 14:38 | EDS_ITS ---
HPI History of Present Illness Chief Complaint: Weakness Narrative Narrative: Chief complaint and HPI: Generalized weakness, cough, worsening baseline confusion. 83-year-old male presents with enaorpii-ns-lja for evaluation of generalized weakness, cough, worsening baseline confusion. Patient has a past medical history of DM2, HTN, colon cancer, CKD. History taken by patient as well as ezwdoegr-mo-yso. Patient states that he has had increased weakness and cough over the past week. He denies any fever, chills, shortness of breath, chest pain, nausea, vomiting, dysuria. Haztchhq-br-syi states that his was recently admitted to the hospital for upper respiratory infection. She states it was not pneumonia. She states that she has been helping taking care of the patient. She states over the past week he has had worsening confusion/forgetfulness. She states at baseline he is forgetful but that she feels like this is worse. No history of dementia. She states that he has been more weak and was barely able to walk or get dressed this morning. She states that the patient has been having incontinence of stool and chronic diarrhea. Patient states that this has been ongoing for years since his cancer. Rrdwflid-np-kmg states that she was informed by the that this has been ongoing for several months. Family is worried that his colon cancer has returned. Diarrhea is nonbloody. Patient denies any abdominal pain. Patient had a scheduled appointment with the PCP today who told the patient to present to the ED for his complaints Review of systems: See HPI Medications: As listed on the chart Allergies: As listed on the chart PFSH: Per chart Vital signs: As listed on the chart. Reviewed. Physical exam: Gen: A&O x4-although took him a long time to remember his birthday as well as his ijnrssum-nl-lhp's name, NAD Head: Normocephalic, atraumatic Eyes: No sclera icterus, conjunctiva clear, PERRL, EOMI ENT: Moist mucous membranes Neck: Trachea midline, No JVD CV: RRR, no murmurs, no peripheral edema Resp: Lungs CTA BL, no w/r/c GI: Abd soft, non-distended, non-tender, no r/r/g Musc: Full ROM, no deformity Skin: Warm, dry Neuro: Alert, grossly intact, sensation intact Psych: Cooperative, appropriate mood and affect PFS PFS Medical History Stage 3b chronic kidney disease (CKD) Smoker Personal history of colon cancer PAD (peripheral artery disease) Colon cancer Meningitis Confusion Mental status change Tobacco abuse Hypertension Type 2 diabetes mellitus Home Medications ?Medication ?Instructions ?Recorded ?Last Taken ?Type insulin aspart U-100 100 unit/mL 6 units subcut TID BLOOD SUGAR 06/25/17 08/16/21 History (3 mL) subcutaneous pen insulin glargine 100 unit/mL (3 30 unit SQ QHS diabetes 04/13/19 08/15/21 History mL) subcutaneous pen gabapentin 100 mg capsule 100 mg PO TID 10/16/20 08/16/21 History metformin 500 mg tablet,extended 1,000 mg PO BID DM 08/16/21 08/16/21 History release 24 hr tamsulosin 0.4 mg capsule 0.4 mg PO DAILY@1730 #0 caps 08/19/21 Unknown Rx lisinopril 20 mg tablet 20 mg PO DAILY #30 tabs 08/20/21 Unknown Rx primidone 50 mg tablet 50 mg PO QHS 06/07/24 Unknown History propranolol 60 mg capsule,24 60 mg PO DAILY 06/07/24 Unknown History hr,extended release Allergy/AdvReac Type Severity Reaction Status Date / Time No Known Allergies Allergy Verified 06/07/24 13:37 Family History Mother Cancer stomach Father Diabetes Surgical History hx of APLL History of colonoscopy History of colectomy (~05/2018) History of laparoscopic cholecystectomy Social History Smoking Status: Current every day smoker tobacco type: cigarettes Tobacco: How many years used: 45 Electronic Cigarette Use: not used second hand exposure: Yes quit status: has quit before alcohol intake: never substance use type: does not use EXAM Physical Exam Const Vital Signs: 06/07/24 13:37 Temperature 98.9 F Temperature Source Oral Pulse Rate 56 L Respiratory Rate 15 Blood Pressure 183/63 H Blood Pressure Mean 103 Pulse Ox 92 Oxygen Delivery Method Room Air MDM MDM MDM Narrative Medical decision making narrative: 83-year-old male presents with [id number] for evaluation of generalized weakness, cough, worsening baseline confusion. Patient has a past medical history of DM2, HTN, colon cancer, CKD. Differential diagnosis includes but is not limited to undiagnosed dementia, viral illness, patient anemia, electrolyte abnormality, ROSALIA, UTI, pneumonia, ACS. Patient has had chronic diarrhea with stool incontinence possible intra-abdominal pathology/recurrent cancer. Laboratory and imaging workup ordered. EKG reviewed see below. CBC without leukocytosis or anemia. CMP unremarkable without electrolyte abnormality or ROSALIA. No transaminitis. Troponin unremarkable. Lipase mildly elevated at 103. COVID, flu, RSV, chest x-ray, CT head, CT abdomen pelvis, UA all pending at this time. Patient signed out to oncoming physician, Dr. Stein, for final disposition pending further results. EKG: Interpreted by me/EM physician: EKG shows sinus rhythm with first-degree AV block. Patient has a known right bundle branch block. This is the same as previous EKG in 2021. No acute ischemic changes. Impression: 1. Generalized weakness 2. Cough 3. Intermittent forgetfulness/confusion 4. Chronic diarrhea Discharge Plan Triage Chief Complaint: Weakness ED Provider: Fady Lara Dx/Rx/DC Orders Prescriptions: No Action insulin aspart U-100 100 UNITS/ML insulin pen 6 units subcut TID insulin glargine 100 UNIT/ML insulin pen 30 unit SQ QHS gabapentin 100 mg capsule 100 mg PO TID metformin 500 mg tablet extended release 24 hr 1,000 mg PO BID Patient Comments: TAKE 2 TABLETS BY MOUTH TWICE DAILY BEFORE MEALS. tamsulosin 0.4 mg Capsule 0.4 mg PO DAILY@1730 Qty: 0 0RF lisinopril 20 mg tablet 20 mg PO DAILY Qty: 30 0RF Primary Care Provider: Delano Garcia Referrals: Delano Garcia MD [Primary Care Provider] - Print Language: Portuguese
[2024-06-07 15:06] LABS: Absolute Lymphocyte Count 1.73 X10^3/uL (0.83-4.51); Absolute Neutrophil Count 4.7 X10^3/uL (2.0-7.7); Basophil# 0.05 X10^3/uL; Basophil% 0.6 % (0-1); Eosinophil# 0.23 X10^3/uL; Eosinophils% 2.9 % (0-5); Hematocrit 47.4 % (40-54); Hemoglobin 15.3 g/dL (13.0-16.5); Lymphocyte # 1.73 X10^3/ul (0.83-4.51); Lymphocyte % 21.7 % (19-41); Mean Corp Hgb Conc 32.3 g/dL (32-36); Mean Corpuscular Hgb 27.7 pg (27.0-32.0); Mean Corpuscular Volume 85.9 fL (80-94); Mean Platelet Vol. 10.1 fl (6.2-12.0); Monocyte# 1.24 X10^3/uL; Monocyte% 15.6 % (0-10); NRBC Flagged by Analyzer 0 % (0-5); Neutrophil # 4.65 X10^3/uL (2.7-7.7); Neutrophil % 58.4 % (47-70); Platelet Count 259 K/mm3 (150-450); RBC Distribution Width SD 43.8 fl (35.1-43.9); Red Blood Count 5.52 M/mm3 (4.6-6.2)
[2024-06-07 15:09] VITALS: BP 169/72; PULSE 84; RESP 16; TEMP 36.6; O2SAT 99
[2024-06-07 15:37] LABS: ALB/GLOB Ratio 0.9 RATIO (0.9-2.4); AST(SGOT) 33 U/L (15-37); Alanine Aminotransfer ALT/SGPT 23 U/L (16-61); Albumin, Serum 3.4 g/dL (3.2-5.0); Alkaline Phosphatase 88 U/L (45-117); Anion Gap 4 (5-15); BUN 14 mg/dL (7-18); BUN/Creat Ratio 11.5 RATIO (10-20); Calcium,Total 9.7 mg/dL (8.5-10.1); Chloride 107 mmol/L (98-107); Creatinine, Serum 1.22 mg/dL (0.70-1.30); EST Glomerular Filtration Rate 60 mL/min (>60); Est Glom Filt Rate - Afr Amer 73 mL/min (>60); Globulin 3.8 g/dL (2.2-4.2); Glucose 86 mg/dL (74-106); Lipase 103 U/L (13-75); Potassium 5.1 mmol/L (3.5-5.1); Protein, Total 7.2 g/dL (6.4-8.2); Sodium Level 138 mmol/L (136-145); Troponin-I HS 14 pg/mL (3.0-78.0)
[2024-06-07 15:47] VITALS: BP 176/76
[2024-06-07 16:13] VITALS: BMI 29.2
--- NOTE | 2024-06-07 16:30 | RAD_ITS ---
EXAM: XR CHEST, 2 VIEWS CLINICAL INDICATION: Cough TECHNIQUE: Frontal and lateral views of the chest. COMPARISON: 08/16/2021 FINDINGS: LUNGS AND PLEURAL SPACES: Unremarkable. No consolidation or edema. No pneumothorax. No effusion. HEART: Unremarkable. Cardiac silhouette not enlarged. MEDIASTINUM: Central airways and mediastinal contour are unremarkable. BONES/JOINTS: Unremarkable. No acute fracture. SOFT TISSUES: Unremarkable. RAD/Chest PA and Lateral IMPRESSION: No radiographic evidence of acute cardiopulmonary disease. Electronically Signed: Thad Mckoy MD at 16:57 EST ,
[2024-06-07 17:26] LABS: Mucous, Urine 0 SEEN /hpf (<or=2+); Red Blood Cells-Urine 0 SEEN /hpf (0-5); Squamous Epithelial Cells - UA 0 SEEN /hpf (0-5)
[2024-06-07 17:32] LABS: Color, Urine Yellow (Yellow); Glucose, Dipstick 50 mg/dl (Normal); Ketone-Dipstick Negative (Negative); Leukocyte Esterase-Dipstick 25 /ul (Negative); Nitrite-Dipstick Negative (Negative); Occult Blood-Urine Negative /ul (Negative); Protein-Dipstick 500 mg/dl (Negative); Specific Gravity, Urine 1.025 (1.002-1.030); Urine Bilirubin Dipstick Negative (Negative); Urine Clarity Clear (Clear); Urine Urobilinogen Normal (Normal)
[2024-06-07 18:06] LABS: Bacteria 1+ /hpf (None Seen); White Blood Cells 0-5 SEEN /hpf (0-5)
[2024-06-07 18:41] VITALS: BP 190/68; PULSE 62; RESP 16; TEMP 36.6; O2SAT 97
[2024-06-07 19:00] VITALS: BP 131/118; PULSE 67; RESP 18; O2SAT 98
--- NOTE | 2024-06-07 19:00 | CM.ED ---
Social Work Reason for Consult: Discharge Planning Referral Source: Dr. Stein Consult received for discharge planning. Chart reviewed. Met with patient and son Duncan in room, introduced to role and reason for visit. Patient reports desire to go home and not receptive to placement for increased care and support. Patient has support from family including 3 sons. Patient has available at home a Raised toilet seat, grab bars, shower chair, walker and 3 steps into home. Patient has a hospital bed being delivered. Resources provided for home going for additional support at home, including private duty home options. No other services requested. Patient and family agreeable with discharge back to community. -UMBERTO Watts
[2024-06-07 20:00] VITALS: PULSE 67; RESP 16; O2SAT 99
== END 2024-06-07 21:00 | disposition home or self-care (01) ==
PROVIDERS: Emergency Provider Surgery; PCP Family Medicine; Visit Provider Surgery
DX: R53.1 Weakness (principal); E11.22 Type 2 diabetes mellitus with diabetic chronic kidney disease; Z79.4 Long term (current) use of insulin; N18.32 Chronic kidney disease, stage 3b; R05.9 Cough, unspecified; R41.0 Disorientation, unspecified; R41.3 Other amnesia; I12.9 Hypertensive chronic kidney disease with stage 1 through stage 4 chronic kidney disease, or unspecified chronic kidney disease; K52.9 Noninfective gastroenteritis and colitis, unspecified; F17.210 Nicotine dependence, cigarettes, uncomplicated; Z79.84 Long term (current) use of oral hypoglycemic drugs; Z79.899 Other long term (current) drug therapy; Z85.038 Personal history of other malignant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 large intestine
CPT/HCPCS: 70450; 71046; 74177; 80053; 81001; 83690; 84484; 85025; 87631; 93005; 99284; Q9967; A4216